=== PATIENT | female | born 1965 | race Caucasian/White ===

== ENCOUNTER 2016-09-03 21:53 | Emergency (ER) | payer MEDICAID ==
[~2016-09-03] VITALS: Ht 160 cm; Wt 108.9 kg
[~2016-09-03 21:53] MED LIST: ALAVERT10 M1 PO; ANAPROX DS550 MG PO; APAP PO; APAP/BUTALBITAL1 TA1 PO; ATENOLOL50 MG PO; B/P PILL PO; BACLOFEN20 MG PO; BACTRIM DS 8001 TAB PO; BENTYL GENERIC10 MG OR; BUTALB PO; BUTALB-ACETAMIN-CAFF OR; CAF PO; CELEBREX 200MG200 MG PO; CELEBREX200 MG PO; CELEXA20 MG PO; CEPHALEXIN500 MG PO; CHLORPROMAZINE25 MG PO; CHLORZOXAZONE500 MG PO; CIPRO 500MG TA500 MG PO; CITALOPRAM20 MG PO; CLARITIN10 MG PO; Cephalexin500 MG PO; DIAZEPAM5 MG PO; FIORICET 325 MG1 TAB PO; FLAGYL 500MG.500 MG PO; FLEXERIL10 MG PO; GABAPENTIN 600600 MG PO; HYDROCHLOROTHIA25 M1 PO; HYDROCODON-ACETAMINO OR; HYDROXYZINE 25M25 MG PO; IBU800 M1 PO; IMITREX 6M6 MG/0.5 M IJ; KEFLEX 500MG.500 MG PO; LORAZEPAM1 MG/TABLE PO; MECLIZINE HYDRO25 MG PO; MEDROL 4MG. DOSE4 MG PO; METOPROLOL50 MG PO; MOBIC15 MG PO; MOTRIN600 MG PO; OMEPRAZOLE20 MG PO; PENICILLIN V P500 MG PO; PHENERGAN 25MG.25 M1 PO; PHENERGAN12.5 M3 PO; TESSALON PERLE100 MG PO; TOPAMAX100 MG PO; TOPAMAX200 MG PO; TRAMADOL 50MG T50 MG PO; ULTRAM 50 MG TA50 MG PO; VENTOLIN H0.09 MG/AC IH; VICODIN 5/500 T1 TAB PO; VOLTAREN75 MG PO; ZANTAC 150150 MG PO; ZANTAC 300300 MG PO; ZITHROMAX Z PA250 MG PO; ZOLPIDEM 10MG T10 MG PO; [UNRECOGNIZED DRUG - OTHER] PO
--- NOTE | 2016-09-03 22:27 | Emergency Room Report ---
History of Present Illness Time Seen by [id number] Presenting Problem in Triage Pt arrived:Walked Presenting Problem:PT STATES SHE HAS SOME SWELLING IN RIGHT LEG. PT STATES SHE JUST NOTICED IT TONIGHT. PT DENIES ANY INJURIES. PT STATES SHE HAS PAIN WHEN WALKING. 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 N Clinical Suspician of Infection? N Mental Status: 1 - Regular (Normal Baseline) Sepsis Risk:Low Sepsis Risk Have you (or family members/close friends) recently traveled outside the [place]? N If Yes, where/when: Have you had exposure to infectious disease within the past month? N TB? Other? Specify: Source patient, RN notes reviewed, old records Exam Limitations no limitations Comment has swelling to rt lower leg which pt noted tonight- no hx od dvt and has no sob Cardiac Chest Pain Chest pain indicative of cardiac No Timing/Duration this evening Severity moderate ALLERGIES Coded Allergies: Sulfa (Sulfonamide Antibiotics) (Mild, 09/03/16) morphine (Mild, 09/03/16) NSAIDS (Non-Steroidal Anti-Inflamma (UNKNOWN 09/03/16) escitalopram (From LEXAPRO) (UNKNOWN 09/03/16) Home Medications Reported Medications ATENOLOL (Atenolol 50MG) 50 MG PO DAILY Omeprazole (Omeprazole 20MG) 20 MG PO DAILY #30 Gabapentin (Gabapentin 600MG) 600 MG PO Q8 #90 Zolpidem Tartrate (Zolpidem 10MG) 10 MG PO QHS #30 ALBUTEROL (Ventolin Hfa) 1 PUFF IH Q6H6 History Medical History General CAD? No Angina: No [place]: No Hypertension? Yes Hyperlipidemia? No CHF? No DVT? No PE? No COPD? No Asthma? Yes Anemia? No GERD? Yes Gastric ulcers? No GI Bleed? No Hernia? No Thyroid Problems? No Hypothyroidism? No CVA? No Seizures? No Diabetes? No End Stage Renal Disease? No UTI? No Stones? No BPH? No GB Disease: Yes Nephritic Syndrome? No Asplenia? No Hepatitis? No Sickle Cell Disease? No Arthritis? No Migraines? No Cataracts? No Glaucoma? No MRSA? No HIV? No TB? No Anxiety? Yes Depression? No Cancer? Yes Site: NECK ([place]) More? 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 Respiratory denies cough, denies shortness of breath, denies wheezing Cardiovascular denies chest pain, denies syncope Gastrointestinal denies abdominal pain, denies diarrhea, denies vomiting Genitourinary denies: dysuria, frequency, hesitancy, hematuria. Musculoskeletal denies back pain, denies joint pain, denies joint swelling, denies neck pain Skin see HPI, denies rash, other Psychiatric/Neurological denies headache, denies seizure Physical Exam Vital Signs Vital Signs Date Time Temp Pulse Resp B/P Pulse O2 O2 Flow FiO2 Ox Delivery Rate 09/03 2207 98.2 97 18 105/73 96 - WBC >12,000 or <4,000 or 10% bands? 2 or more SIRS Criteria Met? B/P:105/73 MAP:83 Creatinine >2.0? UA output<0.5ml/kg/hr for 2 hrs? Platelet count >100,000? Lactate >2.0mmol/1? INR >1.2 or PTT > than 60 sec? Evidence of Organ Dysfunction? Provider documented clinical suspician of infection? N Sepsis Criteria Count: 1 Sepsis Risk: Low Sepsis Risk General Appearance no apparent distress Eye Exam - bilateral eye PERRL, bilateral eye EOMI Ear, Nose, Throat normal ENT inspection Neck supple Respiratory Status No: respiratory distress. 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 No Results/Orders Laboratory Tests 09/03/162224: Sodium 142, Potassium 3.6, Chloride 106, Carbon Dioxide 30, BUN 12, Creatinine 1.0, Estimated Creat Clear 117, Estimated GFR (MDRD) 59, Glucose 102, Calcium 8.4 L, D-Dimer 549 *H, WBC 6.1, RBC 3.72 L, Hgb 11.1 L, Hct 32.7 L, MCV 87.9 , RDW 15.2, Plt Count 235, MPV 8.8, Gran % 60.5, Gran # 3.7, Lymphocytes % 27.8, Monocytes % 5.8, Eosinophils % 4.9, Basophils % 0.9, Lymphocytes # 1.7, Monocytes # 0.4, Eosinophils # 0.3, Basophils # 0.1, PUBS MCHC 34.0, MCH 29.9 Orders Procedure Date/time Status BASIC METABOLIC PROFILE 09/03 2226 Complete D-DIMER 09/03 2214 Complete CBC WITH AUTO DIFF 09/03 2214 Complete Departure Departure Time of Disposition 0001 Disposition DC Home or Self Care(routine) Clinical Impression Primary Impression: Lower leg edema Secondary Impressions: Elevated d-dimer Condition STABLE Referrals Yosef Dorman (Family) Patient Instructions DI for Leg Pain Additional Instructions see dr dorman in am to have venous doppler and follow up Discharge Counseling Counseled pt/family regarding diagnosis, test results, medications/RX, follow up needs ED Critical Care Critical Care No at [phone]
--- NOTE | 2016-09-03 22:27 | Emergency Room Report ---
History of Present Illness Time Seen by [id number] Presenting Problem in Triage Pt arrived:Walked Presenting Problem:PT STATES SHE HAS SOME SWELLING IN RIGHT LEG. PT STATES SHE JUST NOTICED IT TONIGHT. PT DENIES ANY INJURIES. PT STATES SHE HAS PAIN WHEN WALKING. 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 N Clinical Suspician of Infection? N Mental Status: 1 - Regular (Normal Baseline) Sepsis Risk:Low Sepsis Risk Have you (or family members/close friends) recently traveled outside the [place]? N If Yes, where/when: Have you had exposure to infectious disease within the past month? N TB? Other? Specify: Source patient, RN notes reviewed, old records Exam Limitations no limitations Comment has swelling to rt lower leg which pt noted tonight- no hx od dvt and has no sob Cardiac Chest Pain Chest pain indicative of cardiac No Timing/Duration this evening Severity moderate ALLERGIES Coded Allergies: Sulfa (Sulfonamide Antibiotics) (Mild, 09/03/16) morphine (Mild, 09/03/16) NSAIDS (Non-Steroidal Anti-Inflamma (UNKNOWN 09/03/16) escitalopram (From LEXAPRO) (UNKNOWN 09/03/16) Home Medications Reported Medications ATENOLOL (Atenolol 50MG) 50 MG PO DAILY Omeprazole (Omeprazole 20MG) 20 MG PO DAILY #30 Gabapentin (Gabapentin 600MG) 600 MG PO Q8 #90 Zolpidem Tartrate (Zolpidem 10MG) 10 MG PO QHS #30 ALBUTEROL (Ventolin Hfa) 1 PUFF IH Q6H6 History Medical History General CAD? No Angina: No [place]: No Hypertension? Yes Hyperlipidemia? No CHF? No DVT? No PE? No COPD? No Asthma? Yes Anemia? No GERD? Yes Gastric ulcers? No GI Bleed? No Hernia? No Thyroid Problems? No Hypothyroidism? No CVA? No Seizures? No Diabetes? No End Stage Renal Disease? No UTI? No Stones? No BPH? No GB Disease: Yes Nephritic Syndrome? No Asplenia? No Hepatitis? No Sickle Cell Disease? No Arthritis? No Migraines? No Cataracts? No Glaucoma? No MRSA? No HIV? No TB? No Anxiety? Yes Depression? No Cancer? Yes Site: NECK ([place]) More? 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 Respiratory denies cough, denies shortness of breath, denies wheezing Cardiovascular denies chest pain, denies syncope Gastrointestinal denies abdominal pain, denies diarrhea, denies vomiting Genitourinary denies: dysuria, frequency, hesitancy, hematuria. Musculoskeletal denies back pain, denies joint pain, denies joint swelling, denies neck pain Skin see HPI, denies rash, other Psychiatric/Neurological denies headache, denies seizure Physical Exam Vital Signs Vital Signs Date Time Temp Pulse Resp B/P Pulse O2 O2 Flow FiO2 Ox Delivery Rate 09/03 2207 98.2 97 18 105/73 96 - WBC >12,000 or <4,000 or 10% bands? 2 or more SIRS Criteria Met? B/P:105/73 MAP:83 Creatinine >2.0? UA output<0.5ml/kg/hr for 2 hrs? Platelet count >100,000? Lactate >2.0mmol/1? INR >1.2 or PTT > than 60 sec? Evidence of Organ Dysfunction? Provider documented clinical suspician of infection? N Sepsis Criteria Count: 1 Sepsis Risk: Low Sepsis Risk General Appearance no apparent distress Eye Exam - bilateral eye PERRL, bilateral eye EOMI Ear, Nose, Throat normal ENT inspection Neck supple Respiratory Status No: respiratory distress. 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 No Results/Orders Laboratory Tests 09/03/162224: Sodium 142, Potassium 3.6, Chloride 106, Carbon Dioxide 30, BUN 12, Creatinine 1.0, Estimated Creat Clear 117, Estimated GFR (MDRD) 59, Glucose 102, Calcium 8.4 L, D-Dimer 549 *H, WBC 6.1, RBC 3.72 L, Hgb 11.1 L, Hct 32.7 L, MCV 87.9 , RDW 15.2, Plt Count 235, MPV 8.8, Gran % 60.5, Gran # 3.7, Lymphocytes % 27.8, Monocytes % 5.8, Eosinophils % 4.9, Basophils % 0.9, Lymphocytes # 1.7, Monocytes # 0.4, Eosinophils # 0.3, Basophils # 0.1, PUBS MCHC 34.0, MCH 29.9 Orders Procedure Date/time Status BASIC METABOLIC PROFILE 09/03 2226 Complete D-DIMER 09/03 2214 Complete CBC WITH AUTO DIFF 09/03 2214 Complete Departure Departure Time of Disposition 0001 Disposition DC Home or Self Care(routine) Clinical Impression Primary Impression: Lower leg edema Secondary Impressions: Elevated d-dimer Condition STABLE Referrals Yosef Dorman (Family) Patient Instructions DI for Leg Pain Additional Instructions see dr dorman in am to have venous doppler and follow up Discharge Counseling Counseled pt/family regarding diagnosis, test results, medications/RX, follow up needs ED Critical Care Critical Care No at [phone]
[2016-09-03 22:36] LABS: LYMPH # 1.7 K/mm3 (0.7-4.5); LYMPH % 27.8 % (10-50.0)
[2016-09-03 22:39] LABS: HEMOGLOBIN 11.1 g/dL (12.2-16.2)
[2016-09-04 00:16] VITALS: BP 125/73
[2016-09-05] MEDS ORDERED: KEFLEX 500MG.500 MG PO (19:11)
== END 2016-09-04 00:17 | disposition home or self-care (01) ==
LOC: ER 21:53
PROVIDERS: Emergency Medicine
DX: R60.0 Localized edema (principal); I10 Essential (primary) hypertension; Z72.0 Tobacco use; K21.9 Gastro-esophageal reflux disease without esophagitis; F41.9 Anxiety disorder, unspecified; D68.8 Other specified coagulation defects

== ENCOUNTER 2016-12-10 16:41 | Emergency (ER) | payer MEDICAID ==
[~2016-12-10] VITALS: Ht 160 cm; Wt 107.0 kg
--- NOTE | 2016-12-10 17:11 | Urgent Treatment Center Report ---
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 STATES GETTING RELIEF WHEN SHE LAYS ON RIGHT SIDE OR USES HAIRDRYER TO AREA. Location if Accident: Onset of symptoms date/time:/ or onset unknown for:MEDICAL HX UNKNOWN Have you (or family members/close friends) recently traveled outside the [place]? N If Yes, where/when: Have you had exposure to infectious disease within the past month? TB? Other? Specify: Patient state that she has been seeing Dr. Dorman and he told her to come up here and be seen due to pain in her right knee area. States that last year she got an injection in her back and ever since she has been having pain on and off that goes from her mid-thigh area into her knee. state that pain is better when she lays on leg or uses a blow dryer to blow heat on it Source patient ALLERGIES Coded Allergies: Sulfa (Sulfonamide Antibiotics) (Mild, 09/03/16) morphine (Mild, 09/03/16) NSAIDS (Non-Steroidal Anti-Inflamma (UNKNOWN 09/03/16) escitalopram (From LEXAPRO) (UNKNOWN 09/03/16) ibuprofen (From MOTRIN) (12/10/16) Home Medications Reported Medications ATENOLOL (Atenolol 50MG) 50 MG PO DAILY Omeprazole (Omeprazole 20MG) 20 MG PO DAILY #30 Zolpidem Tartrate (Zolpidem 10MG) 10 MG PO QHS #30 ALBUTEROL (Ventolin Hfa) 1 PUFF IH Q6H6 History Medical History General CAD? No Angina: No [place]: No Hypertension? Yes Hyperlipidemia? No CHF? No DVT? No PE? No COPD? No Asthma? Yes Anemia? No GERD? Yes Gastric ulcers? No GI Bleed? No Hernia? No Thyroid Problems? No Hypothyroidism? No CVA? No Seizures? No Diabetes? No UTI? No Stones? No BPH? No GB Disease: Yes Nephritic Syndrome? No Asplenia? No Hepatitis? No Sickle Cell Disease? No Arthritis? No Migraines? No Cataracts? No Glaucoma? No MRSA? No HIV? No TB? No Anxiety? Yes Depression? No Cancer? Yes Site: NECK ([place]) More? 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 Dorman and he told her to come up here and be seen Physical Exam Vital Signs Vital Signs Date Time Temp Pulse Resp B/P Pulse O2 O2 Flow FiO2 Ox Delivery Rate 12/10 1650 97.8 94 20 123/80 94 General Appearance normal appearance, WD/WN, no apparent distress Respiratory Status Yes: trachea midline, chest symmetrical, non tender chest. No: respiratory distress. 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 Has had this before and they treated her with muscle relaxer but it didn't help. Medical Decision Making LABS/Meds/Orders Pt receiving controlled substance in ED? No Results/Orders Orders Procedure Date/time Status KNEE-3 VIEWS-RT 12/10 1704 Active XRAY/CT/US XRAY/CT/US XRAY knee XR interpretation by reviewed by me Xray Results normal/NAD, no fracture seen Departure Departure Time of Disposition 1744 Disposition DC Home or Self Care(routine) Clinical Impression Primary Impression: Knee pain Qualifiers: Laterality: right Chronicity: chronic Qualified Code: M25.561 - Pain in right knee Secondary Impressions: Thigh pain Qualifiers: Laterality: right Qualified Code: M79.651 - Pain in right thigh Condition STABLE Referrals Yosef Dorman (Family) Patient Instructions DI for Knee Pain, DI for Leg Pain Additional Instructions Follow up with family doctor for further treatment Return to the [facility] if needed Rest area DO NOT use blow dryer and blow direct heat on skin, could damage skin and cause further injury Discharge Counseling Counseled pt/family regarding diagnosis, medications/RX, home care, follow up needs Prescriptions Current Visit Scripts Gabapentin (Neurontin) 200 MG PO TID #15 CAP at [phone]
--- NOTE | 2016-12-10 17:11 | Urgent Treatment Center Report ---
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 STATES GETTING RELIEF WHEN SHE LAYS ON RIGHT SIDE OR USES HAIRDRYER TO AREA. Location if Accident: Onset of symptoms date/time:/ or onset unknown for:MEDICAL HX UNKNOWN Have you (or family members/close friends) recently traveled outside the [place]? N If Yes, where/when: Have you had exposure to infectious disease within the past month? TB? Other? Specify: Patient state that she has been seeing Dr. Dorman and he told her to come up here and be seen due to pain in her right knee area. States that last year she got an injection in her back and ever since she has been having pain on and off that goes from her mid-thigh area into her knee. state that pain is better when she lays on leg or uses a blow dryer to blow heat on it Source patient ALLERGIES Coded Allergies: Sulfa (Sulfonamide Antibiotics) (Mild, 09/03/16) morphine (Mild, 09/03/16) NSAIDS (Non-Steroidal Anti-Inflamma (UNKNOWN 09/03/16) escitalopram (From LEXAPRO) (UNKNOWN 09/03/16) ibuprofen (From MOTRIN) (12/10/16) Home Medications Reported Medications ATENOLOL (Atenolol 50MG) 50 MG PO DAILY Omeprazole (Omeprazole 20MG) 20 MG PO DAILY #30 Zolpidem Tartrate (Zolpidem 10MG) 10 MG PO QHS #30 ALBUTEROL (Ventolin Hfa) 1 PUFF IH Q6H6 History Medical History General CAD? No Angina: No [place]: No Hypertension? Yes Hyperlipidemia? No CHF? No DVT? No PE? No COPD? No Asthma? Yes Anemia? No GERD? Yes Gastric ulcers? No GI Bleed? No Hernia? No Thyroid Problems? No Hypothyroidism? No CVA? No Seizures? No Diabetes? No UTI? No Stones? No BPH? No GB Disease: Yes Nephritic Syndrome? No Asplenia? No Hepatitis? No Sickle Cell Disease? No Arthritis? No Migraines? No Cataracts? No Glaucoma? No MRSA? No HIV? No TB? No Anxiety? Yes Depression? No Cancer? Yes Site: NECK ([place]KINS) More? 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 Dorman and he told her to come up here and be seen Physical Exam Vital Signs Vital Signs Date Time Temp Pulse Resp B/P Pulse O2 O2 Flow FiO2 Ox Delivery Rate 12/10 1650 97.8 94 20 123/80 94 General Appearance normal appearance, WD/WN, no apparent distress Respiratory Status Yes: trachea midline, chest symmetrical, non tender chest. No: respiratory distress. 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 Has had this before and they treated her with muscle relaxer but it didn't help. Medical Decision Making LABS/Meds/Orders Pt receiving controlled substance in ED? No Results/Orders Orders Procedure Date/time Status KNEE-3 VIEWS-RT 12/10 1704 Active XRAY/CT/US XRAY/CT/US XRAY knee XR interpretation by reviewed by me Xray Results normal/NAD, no fracture seen Departure Departure Time of Disposition 1744 Disposition DC Home or Self Care(routine) Clinical Impression Primary Impression: Knee pain Qualifiers: Laterality: right Chronicity: chronic Qualified Code: M25.561 - Pain in right knee Secondary Impressions: Thigh pain Qualifiers: Laterality: right Qualified Code: M79.651 - Pain in right thigh Condition STABLE Referrals Yosef Dorman (Family) Patient Instructions DI for Knee Pain, DI for Leg Pain Additional Instructions Follow up with family doctor for further treatment Return to the [facility] if needed Rest area DO NOT use blow dryer and blow direct heat on skin, could damage skin and cause further injury Discharge Counseling Counseled pt/family regarding diagnosis, medications/RX, home care, follow up needs Prescriptions Current Visit Scripts Gabapentin (Neurontin) 200 MG PO TID #15 CAP at [id number]
--- NOTE | 2016-12-10 17:43 | RADIOLOGY REPORT PS360 ---
KNEE-3 VIEWS-RT Ordering Physician: TANMAY MAYO APRN Patient Age: 51 years: Female HISTORY: painright knee pain nonspecified TECHNIQUE: 3 views right knee FINDINGS Right knee is intact with no fracture nor dislocation. . No acute findings are identified no joint effusion. . Only slight sharpening the joint margins. Reflect some early degenerative changes but unimpressive. Borderline narrowing medial lateral compartment IMPRESSION: No fracture nor acute findings right knee. Subtle sharpening the joint margins could reflect some scant early degenerative changes but unimpressive
[2016-12-10] MEDS ORDERED: NEURONTIN 100100 MG PO (17:56)
[2016-12-10 17:59] VITALS: BP 123/80
== END 2016-12-10 18:00 | disposition home or self-care (01) ==
LOC: UTC 16:41
DX: M25.561 Pain in right knee (principal); M79.651 Pain in right thigh; I10 Essential (primary) hypertension; K21.9 Gastro-esophageal reflux disease without esophagitis; Z72.0 Tobacco use

== ENCOUNTER 2017-03-04 00:04 | Emergency (ER) | payer MEDICAID ==
[~2017-03-04] VITALS: Ht 160 cm; Wt 113.9 kg
[~2017-03-04 00:04] MED LIST changes: +NEURONTIN 100100 MG PO
--- NOTE | 2017-03-04 00:36 | Emergency Room Report ---
History of Present Illness Time Seen by [id number] Presenting Problem in Triage Pt arrived:Walked Presenting Problem:C/O HEADACHE AND VOMITING SINCE 1929 TONIGHT. VOMITED X 2. 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 N Clinical Suspician of Infection? N Mental Status: 1 - Regular (Normal Baseline) Sepsis Risk:Possible Sepsis Risk Have you (or family members/close friends) recently traveled outside the [place]? N If Yes, where/when: Have you had exposure to infectious disease within the past month? N TB? Other? Specify: Source patient, RN notes reviewed, old records Exam Limitations no limitations Comment frontal valdes with n/v since this afternoon w/o fever/rash or trauma with no neuro sx Cardiac Chest Pain Chest pain indicative of cardiac No Timing/Duration this evening Severity moderate ALLERGIES Coded Allergies: Sulfa (Sulfonamide Antibiotics) (Mild, 09/03/16) morphine (Mild, 09/03/16) NSAIDS (Non-Steroidal Anti-Inflamma (UNKNOWN 09/03/16) escitalopram (From LEXAPRO) (UNKNOWN 09/03/16) ibuprofen (From MOTRIN) (12/10/16) Home Medications Active Scripts Gabapentin (Neurontin) 200 MG PO TID #15 CAP Prov: 12/10/16 Reported Medications ATENOLOL (Atenolol 50MG) 50 MG PO DAILY Omeprazole (Omeprazole 20MG) 20 MG PO DAILY #30 Zolpidem Tartrate (Zolpidem 10MG) 10 MG PO QHS #30 ALBUTEROL (Ventolin Hfa) 1 PUFF IH Q6H6 History Medical History General CAD? No Angina: No AK: No Hypertension? Yes Hyperlipidemia? No CHF? No DVT? No PE? No COPD? No Asthma? Yes Anemia? No GERD? Yes Gastric ulcers? No GI Bleed? No Hernia? No Thyroid Problems? No Hypothyroidism? No CVA? No Seizures? No Diabetes? No End Stage Renal Disease? No UTI? No Stones? No BPH? No GB Disease: Yes Nephritic Syndrome? No Asplenia? No Hepatitis? No Sickle Cell Disease? No Arthritis? No Migraines? No Cataracts? No Glaucoma? No MRSA? No HIV? No TB? No Anxiety? Yes Depression? No Cancer? Yes Site: NECK ([place]) More? 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 Respiratory denies cough, denies shortness of breath, denies wheezing Cardiovascular denies chest pain, denies palpitations, denies syncope Gastrointestinal see HPI, denies abdominal pain, denies diarrhea, nausea, vomiting Genitourinary denies: dysuria, frequency, hesitancy, hematuria. Musculoskeletal denies back pain, denies joint pain, denies joint swelling, denies neck pain Skin denies rash Psychiatric/Neurological see HPI, headache, denies seizure Physical Exam Vital Signs Vital Signs Date Time Temp Pulse Resp B/P Pulse O2 O2 Flow FiO2 Ox Delivery Rate 03/04 0007 98.6 103 20 122/73 94 - WBC >12,000 or <4,000 or 10% bands? 2 or more SIRS Criteria Met? B/P:122/73 MAP:89 Creatinine >2.0? UA output<0.5ml/kg/hr for 2 hrs? Platelet count >100,000? Lactate >2.0mmol/1? INR >1.2 or PTT > than 60 sec? Evidence of Organ Dysfunction? Provider documented clinical suspician of infection? N Sepsis Criteria Count: 2 Sepsis Risk: Possible Sepsis Risk General Appearance no apparent distress Eye Exam - bilateral eye PERRL, bilateral eye EOMI Ear, Nose, Throat normal ENT inspection Neck supple Respiratory Status No: respiratory distress. 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 No Results/Orders Laboratory Tests 03/04/17 0030: Amylase 27, Lipase 153 03/04/17 0030: Sodium 136, Potassium 3.5, Chloride 102, Carbon Dioxide 29, BUN 12, Creatinine 1.2 H, Estimated Creat Clear 101, Estimated GFR (MDRD) 48 L, Glucose 148 H, Calcium 9.4, Total Bilirubin 0.4, AST 16, ALT 23, Alkaline Phosphatase 81, Total Protein 8.0, Albumin 3.5, Globulin 4.5 H, Albumin/Globulin Ratio 0.8 L, WBC 7.4, RBC 4.91, Hgb 13.9, Hct 42.0, MCV 85.5, RDW 14.1, Plt Count 303, MPV 8.0, Gran % 63.5, Gran # 4.7, Lymphocytes % 26.1, Monocytes % 5.0, Eosinophils % 4.4, Basophils % 1.0, Lymphocytes # 1.9, Monocytes # 0.4, Eosinophils # 0.3, Basophils # 0.1, PUBS MCHC 33.2, MCH 28.4 Orders Procedure Date/time Status URINALYSIS/COMPLETE 03/04 27 Active LIPASE 03/04 27 Complete CBC WITH AUTO DIFF 03/04 27 Complete CHEM 12 PROFILE 03/04 27 Complete AMYLASE 03/04 27 Complete Departure Departure Time of Disposition 0059 Disposition DC Home or Self Care(routine) Clinical Impression Primary Impression: Headache Qualifiers: Headache type: unspecified Headache chronicity pattern: acute headache Intractability: not intractable Qualified Code: R51 - Headache Condition STABLE Referrals [facility] (Family) Patient Instructions DI for Vomiting -- Adult Additional Instructions fluids and see pcp for follow up Discharge Counseling Counseled pt/family regarding diagnosis, test results, follow up needs ED [place] [address]
--- OUTSIDE RECORDS SUMMARY | 2017-03-04 00:41 | External Medical Summary Rpt ---
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 LO 37 -1 -[address] ti DI 85 4- 7- 00 00 SI ve PI 20 20 20 46 DE NE 90 17 17 88 5 53 PH BE AR SY MA LA CY TE 5 OF CY MG NT HI TA AN B A IN C CH 00 02 03 60 15 00 EA Ac LO 59 -1 -[address] ti RZ 12 4- 7- 00 00 SI ve OX 52 20 20 47 DE AZ 00 17 17 61 ON 1 13 PH E AR 50 MA 0 CY MG OF TA CY BL NT ET HI AN A IN C HY 00 02 03 [address] 40 -0 -[address] ti OC 60 8- 0- 00 00 SI ve OD 12 20 20 47 DE ON 40 17 17 53 -A 5 92 PH CE AR TA MA PR CY NO PH OF CY 7. NT 5- HI 32 AN 5 A IN C CE 00 02 03 20 10 00 EA Ac FD 09 -0 -[address] ti IN 33 7- 0- 00 00 SI ve IR 16 20 20 47 DE 00 17 17 53 30 6 14 PH 0 AR MG MA CY CA PS OF UL CY E NT HI AN A IN C BU 00 02 03 60 30 00 EA Ac SP 37 -0 -[address] ti IR 81 1- 3- 00 00 SI ve ON 15 20 20 46 DE E 00 17 17 15 HC 5 80 PH L AR 10 MA CY MG OF TA CY BL NT ET HI AN A IN C OM 62 02 03 30 30 00 EA Ac EP 17 -0 -[address] ti RA 50 1- 3- 00 00 SI ve ZO 13 20 20 47 DE LE 64 17 [address] AR MA 40 CY MG OF CY CA NT PS HI UL AN E A IN C OR 65 01 03 30 8 00 EA Ac OM 16 -3 -[address] ti ET 20 1- 3- 00 00 SI ve PARKER 52 20 20 47 DE ZI 11 17 17 25 NE 1 99 PH AR 25 MA CY MG OF TA CY BL NT ET HI AN A IN C TR 50 02 03 60 30 00 EA Ac AZ 11 -0 -[address] ti OD 10 1- 3- 00 00 SI ve ON 43 20 20 47 DE E 30 17 17 01 50 2 38 PH AR MG MA CY TA BL OF ET CY NT HI AN A IN C HY 00 01 02 [address] 40 -2 -[address] ti OC 60 4- 4- 00 00 SI ve OD 12 20 20 47 DE ON 40 17 17 35 -A 5 90 PH CE AR TA MA PR CY NO PH OF CY 7. NT 5- HI 32 AN 5 A IN C AM 00 01 02 30 30 00 EA Ac LO 37 -1 -[address] ti DI 85 3- 7- 00 00 SI ve PI 20 20 20 46 DE NE 90 17 17 88 5 53 PH BE AR SY MA LA CY TE 5 OF CY MG NT HI TA AN B A IN C CY 00 01 02 90 30 00 EA Ac CL 37 -1 -[address] ti OB 80 3- 7- 00 00 SI ve EN 75 20 20 46 DE ZA 11 17 17 79 OR 0 73 PH IN AR E MA 10 CY MG OF CY TA NT BL HI ET AN A IN C OR 65 01 02 30 8 00 EA Ac OM 16 -1 -[address] ti ET 20 6- 7- 00 00 SI ve PARKER 52 20 20 47 DE ZI 11 17 17 25 NE 1 99 PH AR 25 MA CY MG OF TA CY BL NT ET HI AN A IN C DI 00 01 02 60 20 00 EA Ac CL 22 -1 -[address] ti OF 82 8- 7- 00 00 SI ve EN 55 20 20 47 DE AC 09 17 17 02 6 72 PH SO AR D MA EC CY 50 OF CY MG NT HI TA AN B A IN C CE 65 01 02 40 10 00 EA Ac PH 86 -0 -[address] ti AL 20 5- 0- 00 00 SI ve EX 01 20 20 47 DE IN 90 17 17 14 5 47 PH 50 AR 0 MA MG CY CA OF PS CY UL NT E HI AN A IN C OR 65 01 02 30 8 00 EA Ac OM 16 -0 -[address] ti ET 20 7- 0- 00 00 SI ve PARKER 52 20 20 47 DE ZI 11 17 17 02 NE 1 71 PH AR 25 MA CY MG OF TA CY BL NT ET HI AN A IN C BU 00 12 02 60 30 00 EA Ac SP 37 -3 -[address] ti IR 81 1- 3- 00 00 SI ve ON 15 20 20 46 DE E 00 16 17 15 HC 5 80 PH L AR 10 MA CY MG OF TA CY BL NT ET HI AN A IN C OM 62 01 02 30 30 00 EA Ac EP 17 -0 -[address] ti RA 50 2- 3- 00 00 SI ve ZO 13 20 20 46 DE LE 64 17 17 [address] AR MA 40 CY MG OF CY CA NT PS HI UL AN E A IN C AM 16 12 02 30 10 00 EA Ac OX 71 -3 -[address] ti IC 40 1- 3- 00 00 SI ve IL 29 20 20 46 DE LI 90 16 17 96 N 4 26 PH 50 AR 0 MA MG CY CA OF PS CY UL NT E HI AN A IN C GA 16 12 01 90 30 00 EA Ac BA 71 -2 -[address] ti PE 40 6- 7- 00 00 SI ve NT 33 20 20 47 DE IN 20 16 17 01 2 39 PH 80 AR 0 MA MG CY TA OF BL CY ET NT HI AN A IN C TR 50 12 01 60 30 00 EA Ac AZ 11 -2 -[address] ti OD 10 6- 7- 00 00 SI ve ON 43 20 20 47 DE E 30 16 17 01 50 2 38 PH AR MG MA CY TA BL OF ET CY NT HI AN A IN C OR 65 12 01 30 8 00 EA Ac OM 16 -2 -[address] ti ET 20 7- 7- 00 00 SI ve PARKER 52 20 20 47 DE ZI 11 16 17 02 NE 1 71 PH AR 25 MA CY MG OF TA CY BL NT ET HI AN A IN C DI 00 12 01 60 20 00 EA Ac CL 22 -2 -[address] ti OF 82 7- 7- 00 00 SI ve EN 55 20 20 47 DE AC 09 16 17 02 6 72 PH SO AR D MA EC CY 50 OF CY MG NT HI TA AN B A IN C AM 16 12 01 30 10 00 EA Ac OX 71 -2 -[address] ti IC 40 0- 0- 00 00 SI ve IL 29 20 20 46 DE LI 90 16 17 96 N 4 26 PH 50 AR 0 MA MG CY CA OF PS CY UL NT E HI AN A IN C OR 00 12 01 18 6 00 EA Ac OM 60 -2 -[address] ti ET 31 0- 0- 00 00 SI ve PARKER 58 20 20 0 46 DE ZI 65 16 17 96 NE 8 27 PH -D AR M MA SY CY RU P OF CY NT HI AN A IN C VE 00 12 01 18 25 00 EA Ac NT 17 -2 -[address] ti OL 30 0- 0- 00 00 SI ve IN 68 20 20 46 DE 22 16 17 96 HF 0 28 PH A AR 90 MA CY MC G OF IN CY PARKER NT LE HI R AN A IN C OR 65 12 01 30 8 00 EA Ac OM 16 -1 -[address] ti ET 20 0- 3- 00 00 SI ve PARKER 52 20 20 46 DE ZI 11 16 17 84 NE 1 04 PH AR 25 MA CY MG OF TA CY BL NT ET HI AN A IN C PEREZ 63 12 01 9. 9 00 EA Ac MA 30 -1 -[address] ti TR 40 2- 3- 0 00 SI ve IP 09 20 20 46 DE TA 91 16 17 86 N 9 17 PH PEREZ AR CC MA CY 10 0 OF MG CY NT TA HI BL AN ET A IN C LO 00 12 01 30 4 00 EA Ac PE 09 -1 -[address] ti RA 30 3- 3- 00 00 SI ve PR 31 20 20 46 DE DE 10 16 17 87 2 1 86 PH AR MG MA CY CA PS OF UL CY E NT HI AN A IN C AM 00 12 01 30 30 00 EA Ac LO 37 -1 -[address] ti DI 85 4- 3- 00 00 SI ve PI 20 20 20 46 DE NE 90 16 17 88 5 53 PH BE AR SY MA LA CY TE 5 OF CY MG NT HI TA AN B A IN C OM 68 12 01 30 30 00 EA Ac EP 46 -0 -[address] ti RA 20 5- 9- 00 00 SI ve ZO 23 20 20 46 DE LE 21 16 17 [address] AR MA 40 CY MG OF CY CA NT PS HI UL AN E A IN C CY 00 12 01 90 30 00 EA Ac CL 37 -0 -[address] ti OB 80 7- 9- 00 00 SI ve EN 75 20 20 46 DE ZA 11 16 17 79 OR 0 73 PH IN AR E MA 10 CY MG OF CY TA NT BL HI ET AN A IN C HY 00 05 09 5 [address] 17 -0 -[address] 39 EP ti OC 22 4- 0- 00 SI 51 HE ve HL 08 20 20 DE NS OR 38 11 11 OT 0 PH DO HI AR N AZ MA R ID CY E 25 OF MG CY NT TA HI B AN A ME 00 05 09 5 [address] Ac TO 09 -0 -[address] 39 EP ti OR 30 4- 0- 00 SI 53 HE ve OL 73 20 20 DE NS OL 31 11 11 0 PH DO TA AR N RT MA R RA CY TE OF 50 CY MG NT HI TA AN B A 59 05 09 5 [address] Ac 76 -0 -[address] 39 EP ti 24 4- 0- 00 SI 54 HE ve 80 20 20 DE NS 20 11 11 5 PH DO AR N MA R CY OF CY NT HI AN A RA 53 06 09 4 [address] Ac NI 74 -0 -[address] 76 EP ti TI 60 1- 0- 00 SI 18 HE ve DI 25 20 20 DE NS NE 31 11 11 0 PH DO 15 AR N 0 MA R MG CY TA OF BL ET CY NT HI AN A CY 00 09 09 0 [address] Ac CL 37 -3 -[address] 32 EP ti OB 80 0- 0- 00 SI 59 HE ve EN 75 20 20 DE NS ZA 11 11 11 OR 0 PH DO IN AR N E MA R 10 CY MG OF TA CY BL NT ET HI AN A TO 31 09 09 2 [address] Ac PI 72 -3 -[address] 32 EP ti RA 20 0- 0- 00 SI 60 HE ve MA 28 20 20 DE NS TE 00 11 11 5 PH DO 10 AR N 0 MA R MG CY TA OF BL ET CY NT HI AN A HY 00 05 08 5 [address] 17 -0 -[address] 39 EP ti OC 22 4- 1- 00 SI 51 HE ve HL 08 20 20 DE NS OR 38 11 11 OT 0 PH DO HI AR N AZ MA R ID CY E 25 OF MG CY NT TA HI B AN A ME 00 05 08 5 [address] Ac TO 09 -0 -[address] 39 EP ti OR 30 4- 1- 00 SI 53 HE ve OL 73 20 20 DE NS OL 31 11 11 0 PH DO TA AR N RT MA R RA CY TE OF 50 CY MG NT HI TA AN B A 59 05 08 5 [address] Ac 76 -0 -[address] 39 EP ti 24 4- 1- 00 SI 54 HE ve 80 20 20 DE NS 20 11 11 5 PH DO AR N MA R CY OF CY NT HI AN A RA 53 06 08 4 [address] Ac NI 74 -0 -[address] 76 EP ti TI 60 1- 1- 00 SI 18 HE ve DI 25 20 20 DE NS NE 31 11 11 0 PH DO 15 AR N 0 MA R MG CY TA OF BL ET CY NT HI AN A TO 31 08 08 0 [address] Ac PI 72 -3 -[address] 89 EP ti RA 20 0- 0- 00 SI 00 HE ve MA 28 20 20 DE NS TE 00 11 11 5 PH DO 10 AR N 0 MA R MG CY TA OF BL ET CY NT HI AN A SM 49 08 08 0 [address] Ac 34 -3 -[address] 89 EP ti AL 80 0- 0- 00 SI 16 HE ve LE 04 20 20 DE NS RG 40 11 11 Y 4 PH DO RE AR N LI MA R EF CY 25 OF MG CY NT CA HI P AN A BU 00 08 08 1 [address] Ac TA 60 -1 -[address] 73 EP ti LB 32 9- 9- 00 SI 84 HE ve -A 54 20 20 DE NS CE 42 11 11 TA 8 PH DO PR AR N N- MA R CA CY FF OF 50 -3 CY 25 NT -4 HI 0 AN A 59 07 08 4 8. [address] Ac 31 -2 -[address] 41 EP ti 00 5- 8- 0 SI 30 HE ve 57 20 20 DE NS 92 11 11 0 PH DO AR N MA R CY OF CY NT HI AN A TO 31 03 08 5 [address] Ac PI 72 -2 -[address] 88 EP ti RA 20 8- 1- 00 SI 40 HE ve MA 27 20 20 DE NS TE 90 11 11 5 PH DO 50 AR N MA R MG CY TA OF BL ET CY NT HI AN A HY 00 05 08 5 [address] 17 -0 -[address] 39 EP ti OC 22 4- 1- 00 SI 51 HE ve HL 08 20 20 DE NS OR 38 11 11 OT 0 PH DO HI AR N AZ MA R ID CY E 25 OF MG CY NT TA HI B AN A ME 00 05 08 5 [address] Ac TO 09 -0 -[address] 39 EP ti OR 30 4- 1- 00 SI 53 HE ve OL 73 20 20 DE NS OL 31 11 11 0 PH DO TA AR N RT MA R RA CY TE OF 50 CY MG NT HI TA AN B A 59 05 08 5 [address] Ac 76 -0 -[address] 39 EP ti 24 4- 1- 00 SI 54 HE ve 80 20 20 DE NS 20 11 11 5 PH DO AR N MA R CY OF CY NT HI AN A RA 53 06 08 4 [address] Ac NI 74 -0 -[address] 76 EP ti TI 60 1- 1- 00 SI 18 HE ve DI 25 20 20 DE NS NE 31 11 11 0 PH DO 15 AR N 0 MA R MG CY TA OF BL ET CY NT HI AN A CY 00 07 08 1 [address] Ac CL 37 -1 -[address] 26 EP ti OB 80 2- 1- 00 SI 28 HE ve EN 75 20 20 DE NS ZA 11 11 11 OR 0 PH DO IN AR N E MA R 10 CY MG OF TA CY BL NT ET HI AN A 59 07 07 4 8. [address] Ac 31 -2 -[address] 41 EP ti 00 5- 5- 0 SI 30 HE ve 57 20 20 DE NS 92 11 11 0 PH DO AR N MA R CY OF CY NT HI AN A EP 49 07 07 3 1[address] Ac IP 50 -1 -[address] 26 EP ti EN 20 2- 2- 0 SI 27 HE ve 50 20 20 DE NS 0. 00 11 11 3 1 PH DO MG AR N MA R AU CY TO -I OF NJ EC CY TO NT R HI AN A CY 00 07 07 1 [address] Ac CL 37 -1 -[address] 26 EP ti OB 80 2- 2- 00 SI 28 HE ve EN 75 20 20 DE NS ZA 11 11 11 OR 0 PH DO IN AR N E MA R 10 CY MG OF TA CY BL NT ET HI AN A OR 00 07 07 0 12 3 EA 23 WE Ac OM 78 -0 -[address] 24 HR ti ET 11 7- 1- 00 SI 79 MA ve PARKER 83 20 20 DE N ZI 01 11 11 II NE 0 PH I AR WI 25 MA LL CY IA MG M OF E TA BL CY ET NT HI AN A OR 00 07 07 0 12 3 EA 23 SO Ac OM 78 -0 -[address] 16 KA ti ET 11 2- 2- 00 SI 68 N ve PARKER 83 20 20 DE BA ZI 01 11 11 BA NE 0 PH TU AR ND 25 MA E CY O MG OF TA BL CY ET NT HI AN A TO 13 03 07 5 [address] Ac PI 66 -2 -[address] 88 EP ti RA 80 8- 1- 00 SI 40 HE ve MA 03 20 20 DE NS TE 26 11 11 0 PH DO 50 AR N MA R MG CY TA OF BL ET CY NT HI AN A HY 00 05 07 5 [address] 17 -0 -[address] 39 EP ti OC 22 4- 1- 00 SI 51 HE ve HL 08 20 20 DE NS OR 38 11 11 OT 0 PH DO HI AR N AZ MA R ID CY E 25 OF MG CY NT TA HI B AN A ME 00 05 07 5 [address] Ac TO 09 -0 -[address] 39 EP ti OR 30 4 SI 53 HE ve OL 73 20 20 DE NS OL 31 11 11 0 PH DO TA AR N RT MA R RA CY TE OF 50 CY MG NT HI TA AN B A 59 05 07 5 [address] Ac 76 -0 -[address] 39 EP ti 24 4 SI 54 HE ve 80 20 20 DE NS 20 11 11 5 PH DO AR N MA R CY OF CY NT HI AN A RA 53 06 07 4 [address] Ac NI 74 -0 -[address] 76 EP ti TI 60 1 SI 18 HE ve DI 25 20 20 DE NS NE 31 11 11 0 PH DO 15 AR N 0 MA R MG CY TA OF BL ET CY NT HI AN A OR 00 06 06 1 [address] Ac OM 78 -0 -[address] 80 EP ti ET 11 SI 89 HE ve PARKER 83 20 20 DE NS ZI 01 11 11 NE 0 PH DO AR N 25 MA R CY MG OF TA BL CY ET NT HI AN A OR 00 06 06 1 [address] Ac OM 78 -0 -[address] 80 EP ti ET 11 SI 89 HE ve PARKER 83 20 20 DE NS ZI 01 11 11 NE 0 PH DO AR N 25 MA R CY MG OF TA BL CY ET NT HI AN A DI 00 06 06 0 [address] Ac PH 37 -0 -[address] 80 EP ti EN 80 4 SI 90 HE ve OX 41 20 20 DE NS YL 50 11 11 AT 1 PH DO E- AR N AT MA R RO CY P 2. OF 5- 0. CY 02 NT 5 HI AN A TO 13 03 06 5 [address] Ac PI 66 -2 -[address] 88 EP ti RA 80 8 00 SI 40 HE ve MA 03 20 20 DE NS TE 26 11 11 0 PH DO 50 AR N MA R MG CY TA OF BL ET CY NT HI AN A HY 00 05 06 5 [address] 17 -0 -[address] 39 EP ti OC 22 4- 1- 00 SI 51 HE ve HL 08 20 20 DE NS OR 38 11 11 OT 0 PH DO HI AR N AZ MA R ID CY E 25 OF MG CY NT TA HI B AN A ME 00 05 06 5 [address] Ac TO 09 -0 -[address] 39 EP ti OR 30 4- 00 SI 53 HE ve OL 73 20 20 DE NS OL 31 11 11 0 PH DO TA AR N RT MA R RA CY TE OF 50 CY MG NT HI TA AN B A RA 53 06 06 4 [address] Ac NI 74 -0 -[address] 76 EP ti TI 60 1- SI 18 HE ve DI 25 20 20 DE NS NE 31 11 11 0 PH DO 15 AR N 0 MA R MG CY TA OF BL ET CY NT HI AN A HY 00 05 05 5 [address] 17 -0 -[address] 39 EP ti OC 22 4 4 SI 51 HE ve HL 08 20 20 DE NS OR 38 11 11 OT 0 PH DO HI AR N AZ MA R ID CY E 25 OF MG CY NT TA HI B AN A ME 00 05 05 5 [address] Ac TO 09 -0 -[address] 39 EP ti OR 30 4 SI 53 HE ve OL 73 20 20 DE NS OL 31 11 11 0 PH DO TA AR N RT MA R RA CY TE OF 50 CY MG NT HI TA AN B A 59 05 05 5 [address] Ac 76 -0 -[address] 39 EP ti 24 4 SI 54 HE ve 80 20 20 DE NS 20 11 11 5 PH DO AR N MA R CY OF CY NT HI AN A 59 02 05 2 [address] Ac 76 -2 -[address] 42 EP ti 24 5- SI 08 HE ve 80 20 20 DE NS 20 11 11 5 PH DO AR N MA R CY OF CY NT HI AN A RA 53 02 05 2 [address] Ac NI 74 -2 -[address] 42 EP ti TI 60 5- SI 09 HE ve DI 25 20 20 DE NS NE 31 11 11 0 PH DO 15 AR N 0 MA R MG CY TA OF BL ET CY NT HI AN A TO 13 03 05 5 [address] Ac PI 66 -2 -[address] 88 EP ti RA 80 8- 1- 00 SI 40 HE ve MA 03 20 20 DE NS TE 26 11 11 0 PH DO 50 AR N MA R MG CY TA OF BL ET CY NT HI AN A CE 00 04 04 0 [address] Ac PH 09 -1 -[address] 18 EP ti AL 33 9- 9- 00 SI 44 HE ve EX 14 20 20 DE NS IN 70 11 11 5 PH DO 50 AR N 0 MA R MG CY CA OF PS UL CY E NT HI AN A BU 00 04 04 0 [address] Ac TA 60 -1 -[address] 16 EP ti LB 32 8- 8- 00 SI 95 HE ve -A 54 20 20 DE NS CE 42 11 11 TA 8 PH DO PR AR N N- MA R CA CY FF OF 50 -3 CY 25 NT -4 HI 0 AN A PEREZ 53 04 04 0 [address] Ac LF 74 -1 -[address] 09 EP ti AM 60 3- 3- 00 SI 56 HE ve ET 27 20 20 DE NS HO 20 11 11 XA 5 PH DO ZO AR N LE MA R -T CY MP OF DS CY TA NT BL HI ET AN A ME 00 04 04 0 [address] Ac TH 78 -0 -[address] 00 EP ti YL 15 6- 6- 00 SI 60 HE ve OR 02 20 20 DE NS ED 20 11 11 NI 7 PH DO SO AR N LO MA R NE CY 4 OF MG CY DO NT SE HI PK AN A BU 00 03 04 2 [address] Ac TA 60 -0 -[address] 59 EP ti LB 32 8- 4- 00 SI 53 HE ve -A 54 20 20 DE NS CE 42 11 11 TA 8 PH DO PR AR N N- MA R CA CY FF OF 50 -3 CY 25 NT -4 HI 0 AN A HY 00 04 04 2 [address] 17 -0 -[address] 97 EP ti OC 22 4- 4- 00 SI 49 HE ve HL 08 20 20 DE NS OR 38 11 11 OT 0 PH DO HI AR N AZ MA R ID CY E 25 OF MG CY NT TA HI B AN A ME 00 11 03 4 [address] Ac TO 09 -2 -[address] 13 EP ti OR 30 4- 8- 00 SI 63 HE ve OL 73 20 20 DE NS OL 31 10 11 0 PH DO TA AR N RT MA R RA CY TE OF 50 CY MG NT HI TA AN B A 59 02 03 2 [address] Ac 76 -2 -[address] 42 EP ti 24 5- 8- 00 SI 08 HE ve 80 20 20 DE NS 20 11 11 5 PH DO AR N MA R CY OF CY NT HI AN A RA 00 02 03 2 [address] Ac NI 78 -2 -[address] 42 EP ti TI 11 5- 8- 00 SI 09 HE ve DI 88 20 20 DE NS NE 31 11 11 0 PH DO 15 AR N 0 MA R MG CY TA OF BL ET CY NT HI AN A TO 13 03 03 5 [address] Ac PI 66 -2 -[address] 88 EP ti RA 80 8- 8- 00 SI 40 HE ve MA 03 20 20 DE NS TE 26 11 11 0 PH DO 50 AR N MA R MG CY TA OF BL ET CY NT HI AN A 00 03 03 0 [address] Ac 78 -2 -[address] 80 EP ti 15 2- 2- 00 SI 64 HE ve 25 20 20 DE NS 73 11 11 1 PH DO AR N MA R CY OF CY NT HI AN A HY 00 10 03 4 30 30 EA [address] 55 -2 -[address] 70 ON ti OX 50 6- 1- 00 SI 07 NE ve YZ 32 20 20 DE LL IN 30 10 11 E 4 PH PATTI PA AR HN M MA 25 CY MG OF CA CY P NT HI AN A BU 00 03 03 2 [address] Ac TA 60 -0 -[address] 59 EP ti LB 32 8- 1- 00 SI 53 HE ve -A 54 20 20 DE NS CE 42 11 11 TA 8 PH DO PR AR N N- MA R CA CY FF OF 50 -3 CY 25 NT -4 HI 0 AN A TO 13 03 03 3 [address] Ac PI 66 -0 -[address] 59 EP ti RA 80 8- 8- 00 SI 52 HE ve MA 03 20 20 DE NS TE 16 11 11 0 PH DO 25 AR N MA R MG CY TA OF BL ET CY NT HI AN A BU 00 03 03 2 [address] Ac TA 60 -0 -[address] 59 EP ti LB 32 8- 8- 00 SI 53 HE ve -A 54 20 20 DE NS CE 42 11 11 TA 8 PH DO PR AR N N- MA R CA CY FF OF 50 -3 CY 25 NT -4 HI 0 AN A ME 00 11 03 4 [address] Ac TO 09 -2 -[address] 13 EP ti OR 30 4- 1- 00 SI 63 HE ve OL 73 20 20 DE NS OL 31 10 11 0 PH DO TA AR N RT MA R RA CY TE OF 50 CY MG NT HI TA AN B A HY 00 03 03 0 [address] 17 -0 -[address] 47 EP ti OC 22 1- 1 00 SI 85 HE ve HL 08 20 20 DE NS OR 38 11 11 OT 0 PH DO HI AR N AZ MA R ID CY E 25 OF MG CY NT TA HI B AN A CE 00 02 02 0 [address] Ac PH 09 -2 -[address] 42 EP ti AL 33 6- 6 SI 41 HE ve EX 14 20 20 DE NS IN 70 11 11 5 PH DO 50 AR N 0 MA R MG CY CA OF PS UL CY E NT HI AN A 59 02 02 2 [address] Ac 76 -2 -[address] 42 EP ti 24 5- SI 08 HE ve 80 20 20 DE NS 20 11 11 5 PH DO AR N MA R CY OF CY NT HI AN A RA 00 02 02 2 [address] Ac NI 78 -2 -[address] 42 EP ti TI 11 5 SI 09 HE ve DI 88 20 20 DE NS NE 31 11 11 0 PH DO 15 AR N 0 MA R MG CY TA OF BL ET CY NT HI AN A HY 00 10 02 4 30 30 EA [address] 55 -2 -[address] 70 ON ti OX 50 6- 1 SI 07 NE ve YZ 32 20 20 DE LL IN 30 10 11 E 4 PH PATTI PA AR HN M MA 25 CY MG OF CA CY P NT HI AN A ME 50 02 02 0 42 14 EA 21 GA Ac TR 11 -0 -[address] 14 IN ti ON 10 SI 31 EY ve ID 33 20 20 DE AZ 40 11 11 PR OL 1 PH CH E AR AE 50 MA L 0 CY S MG OF TA BL CY ET NT HI AN A OR 00 02 02 0 [address] Ac OM 78 -0 -[address] 05 EP ti ET 11 2- 2- 00 SI 65 HE ve PARKER 83 20 20 DE NS ZI 01 11 11 NE 0 PH DO AR N 25 MA R CY MG OF TA BL CY ET NT HI AN A HY 00 10 01 4 30 30 EA [address] 55 -2 -[address] 70 ON ti OX 50 6- 5- 00 SI 07 NE ve YZ 32 20 20 DE LL IN 30 10 11 E 4 PH PATTI PA AR HN M MA 25 CY MG OF CA CY P NT HI AN A HY 00 11 01 2 [address] 17 -2 -[address] 12 EP ti OC 22 3- 5- 00 SI 19 HE ve HL 08 20 20 DE NS OR 38 10 11 OT 0 PH DO HI AR N AZ MA R ID CY E 25 OF MG CY NT TA HI B AN A ME 00 11 01 4 [address] Ac TO 09 -2 -[address] 13 EP ti OR 30 4- 5- 00 SI 63 HE ve OL 73 20 20 DE NS OL 31 10 11 0 PH DO TA AR N RT MA R RA CY TE OF 50 CY MG NT HI TA AN B A 59 12 01 2 [address] Ac 76 -2 -[address] 55 EP ti 24 7- 5- 00 SI 50 HE ve 80 20 20 DE NS 20 10 11 5 PH DO AR N MA R CY OF CY NT HI AN A RA 53 01 01 0 [address] Ac NI 74 -2 -[address] 95 EP ti TI 60 5- 5- 00 SI 55 HE ve DI 25 20 20 DE NS NE 30 11 11 5 PH DO 15 AR N 0 MA R MG CY TA OF BL ET CY NT HI AN A TO 13 10 01 4 90 30 EA 19 OC Ac PI 66 -2 -[address] 70 ON ti RA 80 6- 3- 00 SI 09 NE ve MA 03 20 20 DE LL TE 26 10 11 0 PH PATTI 50 AR HN MA MG CY TA OF BL ET CY NT HI AN A 00 01 01 1 [address] Ac 55 -0 -[address] 64 EP ti 50 3- 3- 00 SI 68 HE ve 58 20 20 DE NS 50 11 11 2 PH DO AR N MA R CY OF CY NT HI AN A HY 00 10 12 4 30 30 EA [address] 55 -2 -[address] 70 ON ti OX 50 6- 7- 00 SI 07 NE ve YZ 32 20 20 DE LL IN 30 10 10 E 4 PH PATTI PA AR HN M MA 25 CY MG OF CA CY P NT HI AN A 59 12 12 2 [address] Ac 76 -2 -[address] 55 EP ti 24 7- 7- 00 SI 50 HE ve 80 20 20 DE NS 20 10 10 5 PH DO AR N MA R CY OF CY NT HI AN A HY 00 11 12 2 [address] 17 -2 -[address] 12 EP ti OC 22 3- 4- 00 SI 19 HE ve HL 08 20 20 DE NS OR 38 10 10 OT 0 PH DO HI AR N AZ MA R ID CY E 25 OF MG CY NT TA HI B AN A ME 00 11 12 4 [address] Ac TO 09 -2 -[address] 13 EP ti OR 30 4- 4- 00 SI 63 HE ve OL 73 20 20 DE NS OL 31 10 10 0 PH DO TA AR N RT MA R RA CY TE OF 50 CY MG NT HI TA AN B A RA 53 12 12 0 [address] Ac NI 74 -2 -[address] 54 EP ti TI 60 4- 4- 00 SI 21 HE ve DI 25 20 20 DE NS NE 30 10 10 5 PH DO 15 AR N 0 MA R MG CY TA OF BL ET CY NT HI AN A AM 00 12 12 0 [address] Ac OX 78 -1 -[address] 39 EP ti IC 12 4- 4- 00 SI 70 HE ve IL 61 20 20 DE NS LI 30 10 10 N 5 PH DO 50 AR N 0 MA R MG CY CA OF PS UL CY E NT HI AN A 60 12 12 0 [address] Ac 25 -1 -[address] 39 EP ti 80 4- 4- 00 SI 71 HE ve 23 20 20 0 DE NS 91 10 10 6 PH DO AR N MA R CY OF CY NT HI AN A ME 00 12 12 0 [address] Ac TH 78 -1 -[address] 39 EP ti YL 15 4- 4- 00 SI 73 HE ve OR 02 20 20 DE NS ED 20 10 10 NI 7 PH DO SO AR N LO MA R NE CY 4 OF MG CY DO NT SE HI PK AN A CH 50 12 12 0 [address] Ac LO 38 -0 -[address] 27 EP ti RH 30 6- 6- 00 SI 19 HE ve EX 72 20 20 0 DE NS ID 01 10 10 IN 6 PH KE E AR 0. MA N 12 CY C % RI OF NS E CY NT HI AN A TO 13 10 12 4 90 30 EA 19 OC Ac PI 66 -2 -[address] 70 ON ti RA 80 6- 3- 00 SI 09 NE ve MA 03 20 20 DE LL TE 26 10 10 0 PH PATTI 50 AR HN MA MG CY TA OF BL ET CY NT HI AN A OR 00 12 12 0 [address] Ac OC 09 -0 -[address] 25 EP ti HL 39 3- 3- 00 SI 23 HE ve OR 65 20 20 DE NS PE 20 10 10 RA 1 PH DO ZI AR N NE MA R CY 10 OF MG CY TA NT B HI AN A RA 53 08 11 3 [address] Ac NI 74 -2 -[address] 84 EP ti TI 60 5- 4- 00 SI 80 HE ve DI 25 20 20 DE NS NE 30 10 10 5 PH DO 15 AR N 0 MA R MG CY TA OF BL ET CY NT HI AN A HY 00 10 11 4 30 30 EA [address] 55 -2 -[address] 70 ON ti OX 50 6- 4- 00 SI 07 NE ve YZ 32 20 20 DE LL IN 30 10 10 E 4 PH PATTI PA AR HN M MA 25 CY MG OF CA CY P NT HI AN A ME 00 11 11 4 [address] Ac TO 09 -2 -[address] 13 EP ti OR 30 4- 4- 00 SI 63 HE ve OL 73 20 20 DE NS OL 31 10 10 0 PH DO TA AR N RT MA R RA CY TE OF 50 CY MG NT HI TA AN B A 59 08 11 3 [address] Ac 76 -3 -[address] 90 EP ti 24 0- 3- 00 SI 89 HE ve 80 20 20 DE NS 20 10 10 5 PH DO AR N MA R CY OF CY NT HI AN A HY 00 11 11 2 [address] 17 -2 -[address] 12 EP ti OC 22 3- 3- 00 SI 19 HE ve HL 08 20 20 DE NS OR 38 10 10 OT 0 PH DO HI AR N AZ MA R ID CY E 25 OF MG CY NT TA HI B AN A AC 00 11 11 0 [address] Ac ET 09 -2 -[address] 09 EP ti AM 30 2- 2- 00 SI 74 HE ve IN 15 20 20 DE NS OP 00 10 10 HE 1 PH KE N- AR CO MA N D CY C #3 OF TA BL CY ET NT HI AN A PE 00 11 11 30 7 RI 85 WE Ac NI 09 -1 -1 .0 TE 88 HR ti CI 31 8- 8- 00 30 MA ve LL 17 20 20 AI N IN 40 10 10 D II 1 PH I VK AR WI MA LL 50 CY IA 0 M MG 03 E 93 TA 8 BL # ET 03 93 IB 53 11 11 0 21 7 EA 20 PATTI Ac UP 74 -1 -[address] 00 HN ti RO 60 6- 6- 00 SI 67 SO ve FE 46 20 20 DE N N 60 10 10 CH 80 5 PH AR 0 AR LE MG MA S CY M TA BL OF ET CY NT HI AN A OR 00 11 11 0 20 5 EA 20 PATTI Ac OM 78 -1 -[address] 00 HN ti ET 11 6- 6- 00 SI 69 SO ve PARKER 83 20 20 DE N ZI 01 10 10 CH NE 0 PH AR AR LE 25 MA S CY M MG OF TA BL CY ET NT HI AN A 59 08 10 3 [address] Ac 76 -3 -[address] 90 EP ti 24 0- 7- 00 SI 89 HE ve 80 20 20 DE NS 20 10 10 5 PH DO AR N MA R CY OF CY NT HI AN A TO 13 10 10 4 90 30 EA 19 OC Ac PI 66 -2 -[address] 70 ON ti RA 80 6- 6- 00 SI 09 NE ve MA 03 20 20 DE LL TE 26 10 10 0 PH PATTI 50 AR HN MA MG CY TA OF BL ET CY NT HI AN A ME 00 05 10 5 [address] Ac TO 09 -2 -[address] 73 EP ti OR 30 5- 4- 00 SI 22 HE ve OL 73 20 20 DE NS OL 31 10 10 0 PH DO TA AR N RT MA R RA CY TE OF 50 CY MG NT HI TA AN B A RA 53 08 10 3 [address] Ac NI 74 -2 -[address] 84 EP ti TI 60 5- 4- 00 SI 80 HE ve DI 25 20 20 DE NS NE 30 10 10 5 PH DO 15 AR N 0 MA R MG CY TA OF BL ET CY NT HI AN A LO 45 10 10 2 [address] Ac RA 80 -0 -[address] 38 EP ti TA 20 4- 4- 00 SI 78 HE ve DI 65 20 20 DE NS NE 08 10 10 7 PH DO 10 AR N MA R MG CY TA OF BL ET CY NT HI AN A TR 00 10 10 0 28 5 WA 44 FO Ac AM 37 -2 -2 .0 L- 89 ST ti AD 84 4- 4- 00 MA 30 ER ve OL 15 20 20 RT 2 10 10 10 JA HC 1 PH ME L AR S 50 MA M CY MG # TA 10 BL 05 ET 91 HY 00 09 10 1 [address] 17 -2 -[address] 20 EP ti OC 22 0- 9- 00 SI 62 HE ve HL 08 20 20 DE NS OR 38 10 10 OT 0 PH DO HI AR N AZ MA R ID CY E 25 OF MG CY NT TA HI B AN A 00 09 10 1 [address] Ac 55 -2 -[address] 20 EP ti 50 0- 9- 00 SI 63 HE ve 58 20 20 DE NS 50 10 10 2 PH DO AR N MA R CY OF CY NT HI AN A CE 00 09 10 1 [address] Ac LE 02 -2 -[address] 20 EP ti BR 51 0- 9- 00 SI 64 HE ve EX 52 20 20 DE NS 53 10 10 20 1 PH DO 0 AR N MG MA R CY CA PS OF UL E CY NT HI AN A PEREZ 53 10 10 [address] Ac LF 74 -1 -[address] 49 EP ti AM 60 1- 1- 00 SI 42 HE ve ET 27 20 20 DE NS HO 20 10 10 XA 5 PH DO ZO AR N LE MA R -T CY MP OF DS CY TA NT BL HI ET AN A HY 00 10 10 2 [address] 55 -0 -[address] 46 EP ti OX 50 8- 8- 00 SI 86 HE ve YZ 32 20 20 DE NS IN 30 10 10 E 4 PH DO PA AR N M MA R 25 CY MG OF CA CY P NT HI AN A LO 45 10 10 2 [address] Ac RA 80 -0 -[address] 38 EP ti TA 20 4- 4- 00 SI 78 HE ve DI 65 20 20 DE NS NE 08 10 10 7 PH DO 10 AR N MA R MG CY TA OF BL ET CY NT HI AN A ME 00 10 10 0 [address] Ac TH 78 -0 -[address] 38 EP ti YL 15 4- 4- 00 SI 79 HE ve OR 02 20 20 DE NS ED 20 10 10 NI 7 PH DO SO AR N LO MA R NE CY 4 OF MG CY DO NT SE HI PK AN A 59 08 09 3 [address] Ac 76 -3 -[address] 90 EP ti 24 0- 7- 00 SI 89 HE ve 80 20 20 DE NS 20 10 10 5 PH DO AR N MA R CY OF CY NT HI AN A RA 53 08 09 3 [address] Ac NI 74 -2 -[address] 84 EP ti TI 60 5- 4- 00 SI 80 HE ve DI 25 20 20 DE NS NE 30 10 10 5 PH DO 15 AR N 0 MA R MG CY TA OF BL ET CY NT HI AN A ME 00 05 09 5 [address] Ac TO 09 -2 -[address] 73 EP ti OR 30 5- 2- 00 SI 22 HE ve OL 73 20 20 DE NS OL 31 10 10 0 PH DO TA AR N RT MA R RA CY TE OF 50 CY MG NT HI TA AN B A HY 00 09 09 1 [address] 17 -2 -[address] 20 EP ti OC 22 0- 0- 00 SI 62 HE ve HL 08 20 20 DE NS OR 38 10 10 OT 0 PH DO HI AR N AZ MA R ID CY E 25 OF MG CY NT TA HI B AN A 00 09 09 1 [address] Ac 55 -2 -[address] 20 EP ti 50 0- 0- 00 SI 63 HE ve 58 20 20 DE NS 50 10 10 2 PH DO AR N MA R CY OF CY NT HI AN A CE 00 09 09 1 [address] Ac LE 02 -2 -[address] 20 EP ti BR 51 0- 0- 00 SI 64 HE ve EX 52 20 20 DE NS 53 10 10 20 1 PH DO 0 AR N MG MA R CY CA PS OF UL E CY NT HI AN A 59 09 09 0 8. [address] Ac 31 -1 -[address] 19 EP ti 00 8- 8- 0 SI 64 HE ve 57 20 20 DE NS 92 10 10 0 PH DO AR N MA R CY OF CY NT HI AN A PEREZ 53 09 09 0 [address] Ac LF 74 -1 -[address] 14 EP ti AM 60 5- 5- 00 SI 92 HE ve ET 27 20 20 DE NS HO 20 10 10 XA 5 PH DO ZO AR N LE MA R -T CY MP OF DS CY TA NT BL HI ET AN A 00 09 09 0 9. [address] Ac 00 -0 -[address] 04 EP ti 63 8- 8- 0 SI 12 HE ve 80 20 20 DE NS 11 10 10 2 PH DO AR N MA R CY OF CY NT HI AN A IB 53 09 09 0 [address] Ac UP 74 -0 -[address] 03 EP ti RO 60 7- 7- 00 SI 11 HE ve FE 46 20 20 DE NS N 50 10 10 60 5 PH DO 0 AR N MG MA R CY TA BL OF ET CY NT HI AN A OR 00 08 08 0 [address] Ac OC 09 -3 -[address] 94 EP ti HL 39 1- 1- 00 SI 02 HE ve OR 65 20 20 DE NS PE 20 10 10 RA 1 PH DO ZI AR N NE MA R CY 10 OF MG CY TA NT B HI AN A CI 57 08 08 3 [address] Ac TA 66 -3 -[address] 90 EP ti LO 40 0- 0- 00 SI 89 HE ve OR 50 20 20 DE NS AM 91 10 10 8 PH DO HB AR N R MA R 40 CY MG OF TA CY BL NT ET HI AN A HY 00 01 08 5 [address] 55 -1 -[address] 98 EP ti OX 50 5- 8- 00 SI 83 HE ve YZ 32 20 20 DE NS IN 30 10 10 E 4 PH DO PA AR N M MA R 25 CY MG OF CA CY P NT HI AN A SE 16 07 08 5 [address] Ac RT 71 -3 -[address] 53 EP ti RA 40 1- 8- 00 SI 77 HE ve LI 61 20 20 DE NS NE 30 10 10 6 PH DO HC AR N L MA R 10 CY 0 MG OF TA CY BL NT ET HI AN A PEREZ 53 08 08 0 [address] Ac LF 74 -2 -[address] 84 EP ti AM 60 5- 5- 00 SI 79 HE ve ET 27 20 20 DE NS HO 20 10 10 XA 5 PH DO ZO AR N LE MA R -T CY MP OF DS CY TA NT BL HI ET AN A RA 53 08 08 3 [address] Ac NI 74 -2 -[address] 84 EP ti TI 60 5- 5- 00 SI 80 HE ve DI 25 20 20 DE NS NE 30 10 10 5 PH DO 15 AR N 0 MA R MG CY TA OF BL ET CY NT HI AN A ME 00 05 08 5 [address] Ac TO 09 -2 -[address] 73 EP ti OR 30 5- 3- 00 SI 22 HE ve OL 73 20 20 DE NS OL 31 10 10 0 PH DO TA AR N RT MA R RA CY TE OF 50 CY MG NT HI TA AN B A CE 00 08 08 0 40 10 EA 18 WE Ac PH 09 -2 -[address] 81 HR ti AL 33 3- 3- 00 SI 43 MA ve EX 14 20 20 DE N IN 70 10 10 II 5 PH I 50 AR WI 0 MA LL MG CY IA M CA OF E PS UL CY E NT HI AN A BU 00 08 08 0 12 3 EA 18 GA Ac TA 60 -2 -[address] 78 IN ti LB 32 0- 0- 00 SI 50 EY ve -A 54 20 20 DE CE 42 10 10 PR TA 8 PH CH PR AR AE N- MA L CA CY S FF OF 50 -3 CY 25 NT -4 HI 0 AN A SE 16 07 07 5 [address] Ac RT 71 -3 -[address] 53 EP ti RA 40 1- 1- 00 SI 77 HE ve LI 61 20 20 DE NS NE 30 10 10 6 PH DO HC AR N L MA R 10 CY 0 MG OF TA CY BL NT ET HI AN A RA 53 05 07 2 [address] Ac NI 74 -2 -[address] 70 EP ti TI 60 4- 5- 00 SI 79 HE ve DI 25 20 20 DE NS NE 30 10 10 5 PH DO 15 AR N 0 MA R MG CY TA OF BL ET CY NT HI AN A ME 00 05 07 5 [address] Ac TO 09 -2 -[address] 73 EP ti OR 30 5- 5- 00 SI 22 HE ve OL 73 20 20 DE NS OL 31 10 10 0 PH DO TA AR N RT MA R RA CY TE OF 50 CY MG NT HI TA AN B A AC 00 07 07 0 60 30 EA 18 OC Ac ET 55 -1 -[address] 38 ON ti AZ 50 9- 9- 00 SI 96 NE ve OL 51 20 20 DE LL AM 30 10 10 ID 2 PH PATTI E AR HN ER MA CY 50 0 OF MG CY CA NT P HI AN A HY 00 01 07 5 [address] 55 -1 -[address] 98 EP ti OX 50 5- 6- 00 SI 83 HE ve YZ 32 20 20 DE NS IN 30 10 10 E 4 PH DO PA AR N M MA R 25 CY MG OF CA CY P NT HI AN A NO 00 01 07 5 90 30 EA 15 OC Ac RT 59 -1 -[address] 98 ON ti RI 15 5- 6- 00 SI 85 NE ve PT 78 20 20 DE LL YL 60 10 10 IN 1 PH PATTI E AR HN HC MA L CY 10 OF MG CY CA NT P HI AN A IB 53 07 07 3 [address] Ac UP 74 -1 -[address] 30 EP ti RO 60 2- 2- 00 SI 19 HE ve FE 46 20 20 0 DE NS N 50 10 10 60 5 PH DO 0 AR N MG MA R CY TA BL OF ET CY NT HI AN A RA 53 05 06 2 [address] Ac NI 74 -2 -[address] 70 EP ti TI 60 4- 6- 00 SI 79 HE ve DI 25 20 20 DE NS NE 30 10 10 5 PH DO 15 AR N 0 MA R MG CY TA OF BL ET CY NT HI AN A ME 00 05 06 5 [address] Ac TO 09 -2 -[address] 73 EP ti OR 30 5- 6- 00 SI 22 HE ve OL 73 20 20 DE NS OL 31 10 10 0 PH DO TA AR N RT MA R RA CY TE OF 50 CY MG NT HI TA AN B A SE 16 06 06 0 [address] Ac RT 71 -2 -[address] 12 EP ti RA 40 6- 6- 00 SI 60 HE ve LI 61 20 20 DE NS NE 30 10 10 6 PH DO HC AR N L MA R 10 CY 0 MG OF TA CY BL NT ET HI AN A 60 06 06 0 [address] Ac 25 -2 -[address] 05 EP ti 80 1- 1- 00 SI 76 HE ve 23 20 20 0 DE NS 91 10 10 6 PH DO AR N MA R CY OF CY NT HI AN A PEREZ 53 06 06 0 [address] Ac LF 74 -1 -[address] 03 EP ti AM 60 8- 8- 00 SI 12 HE ve ET 27 20 20 DE NS HO 20 10 10 XA 5 PH DO ZO AR N LE MA R -T CY MP OF DS CY TA NT BL HI ET AN A AC 00 01 06 5 60 30 EA 15 OC Ac ET 55 -1 -[address] 98 ON ti AZ 50 5- 7- 00 SI 82 NE ve OL 51 20 20 DE LL AM 30 10 10 ID 2 PH PATTI E AR HN ER MA CY 50 0 OF MG CY CA NT P HI AN A NO 00 01 06 5 90 30 EA 15 OC Ac RT 59 -1 -[address] 98 ON ti RI 15 5- 7- 00 SI 85 NE ve PT 78 20 20 DE LL YL 60 10 10 IN 1 PH PATTI E AR HN HC MA L CY 10 OF MG CY CA NT P HI AN A 00 06 06 1 [address] Ac 55 -0 -[address] 83 EP ti 50 2- 7- 00 SI 56 HE ve 58 20 20 DE NS 50 10 10 2 PH DO AR N MA R CY OF CY NT HI AN A CE 00 06 06 0 40 10 EA 17 WE Ac PH 09 -1 -[address] 94 HR ti AL 33 SI 08 MA ve EX 14 20 20 DE N IN 70 10 10 II 5 PH I 50 AR WI 0 MA LL MG CY IA M CA OF E PS UL CY E NT HI AN A OR 00 06 06 0 12 3 EA 17 WE Ac OM 78 -1 -[address] 94 HR ti ET 11 SI 09 MA ve PARKER 83 20 20 DE N ZI 01 10 10 II NE 0 PH I AR WI 25 MA LL CY IA MG M OF E TA BL CY ET NT HI AN A HY 00 01 06 5 [address] 55 -1 -[address] 98 EP ti OX 50 5- 2- 00 SI 83 HE ve YZ 32 20 20 DE NS IN 30 10 10 E 4 PH DO PA AR N M MA R 25 CY MG OF CA CY P NT HI AN A 00 06 06 1 [address] Ac 55 -0 -[address] 83 EP ti 50 2- 2- 00 SI 56 HE ve 58 20 20 DE NS 50 10 10 2 PH DO AR N MA R CY OF CY NT HI AN A SE 16 03 05 2 [address] Ac RT 71 -2 -[address] 98 EP ti RA 40 9- 7- 00 SI 23 HE ve LI 61 20 20 DE NS NE 30 10 10 6 PH DO HC AR N L MA R 10 CY 0 MG OF TA CY BL NT ET HI AN A ME 00 05 05 5 [address] Ac TO 09 -2 -[address] 73 EP ti OR 30 5- 5- 00 SI 22 HE ve OL 73 20 20 DE NS OL 31 10 10 0 PH DO TA AR N RT MA R RA CY TE OF 50 CY MG NT HI TA AN B A RA 53 05 05 2 [address] Ac NI 74 -2 -[address] 70 EP ti TI 60 4- 4- 00 SI 79 HE ve DI 25 20 20 DE NS NE 30 10 10 5 PH DO 15 AR N 0 MA R MG CY TA OF BL ET CY NT HI AN A DI 00 05 05 0 14 7 WA 70 GA Ac CL 78 -2 -2 .0 L- 71 IN ti OF 11 3- 3- 00 MA 74 EY ve EN 78 20 20 RT 2 AC 90 10 10 PR 1 PH CH SO AR AE D MA L EC CY S # 75 10 MG 05 91 TA B AC 00 01 05 5 60 30 EA 15 OC Ac ET 55 -1 -[address] 98 ON ti AZ 50 5- 8- 00 SI 82 NE ve OL 51 20 20 DE LL AM 30 10 10 ID 2 PH PATTI E AR HN ER MA CY 50 0 OF MG CY CA NT P HI AN A NO 00 01 05 5 90 30 EA 15 OC Ac RT 59 -1 -[address] 98 ON ti RI 15 5- 4- 00 SI 85 NE ve PT 78 20 20 DE LL YL 60 10 10 IN 1 PH PATTI E AR HN HC MA L CY 10 OF MG CY CA NT P HI AN A AC 00 05 05 0 [address] Ac ET 40 -0 -[address] 49 EP ti AM 60 6- 6- 00 SI 63 HE ve IN 48 20 20 DE NS OP 41 10 10 HE 0 PH KE N- AR CO MA N D CY C #3 OF TA BL CY ET NT HI AN A CE 00 04 04 0 21 7 EA 17 GA Ac PH 09 -3 -[address] 41 IN ti AL 33 0- 0- 00 SI 52 EY ve EX 14 20 20 DE IN 70 10 10 PR 5 PH CH 50 AR AE 0 MA L MG CY S CA OF PS UL CY E NT HI AN A ME 00 12 04 4 [address] Ac TO 09 -2 -[address] 69 EP ti OR 30 2- 4- 00 SI 71 HE ve OL 73 20 20 DE NS OL 31 09 10 0 PH DO TA AR N RT MA R RA CY TE OF 50 CY MG NT HI TA AN B A SE 16 03 04 2 [address] Ac RT 71 -2 -[address] 98 EP ti RA 40 9- 4- 00 SI 23 HE ve LI 61 20 20 DE NS NE 30 10 10 6 PH DO HC AR N L MA R 10 CY 0 MG OF TA CY BL NT ET HI AN A RA 53 11 04 5 [address] Ac NI 74 -1 -[address] 15 EP ti TI 60 6- 1- 00 SI 04 HE ve DI 25 20 20 DE NS NE 30 09 10 5 PH DO 15 AR N 0 MA R MG CY TA OF BL ET CY NT HI AN A AC 00 01 04 5 60 30 EA 15 OC Ac ET 55 -1 -[address] 98 ON ti AZ 50 5- 7- 00 SI 82 NE ve OL 51 20 20 DE LL AM 30 10 10 ID 2 PH PATTI E AR HN ER MA CY 50 0 OF MG CY CA NT P HI AN A HY 00 01 04 5 [address] 55 -1 -[address] 98 EP ti OX 50 5- 7- 00 SI 83 HE ve YZ 32 20 20 DE NS IN 30 10 10 E 4 PH DO PA AR N M MA R 25 CY MG OF CA CY P NT HI AN A IN 00 01 04 5 60 10 EA 15 OC Ac DO 78 -1 -[address] 98 ON ti ME 12 5- 7- 00 SI 84 NE ve TH 32 20 20 DE LL AC 51 10 10 IN 0 PH PATTI AR HN 25 MA CY MG OF CA PS CY UL NT E HI AN A AM 00 04 04 0 [address] Ac OX 78 -1 -[address] 19 EP ti IC 12 4- 4- 00 SI 37 HE ve IL 61 20 20 DE NS LI 30 10 10 N 5 PH KE 50 AR 0 MA N MG CY C CA OF PS UL CY E NT HI AN A AC 00 04 04 0 [address] Ac ET 40 -1 -[address] 19 EP ti AM 60 4- 4- 00 SI 38 HE ve IN 48 20 20 DE NS OP 41 10 10 HE 0 PH KE N- AR CO MA N D CY C #3 OF TA BL CY ET NT HI AN A NO 00 01 04 5 90 30 EA 15 OC Ac RT 59 -1 -[address] 98 ON ti RI 15 5- 2- 00 SI 85 NE ve PT 78 20 20 DE LL YL 60 10 10 IN 1 PH PATTI E AR HN HC MA L CY 10 OF MG CY CA NT P HI AN A AM 00 04 04 0 [address] Ac OX 78 -0 -[address] 06 EP ti IC 12 5- 5- 00 SI 93 HE ve IL 61 20 20 DE NS LI 30 10 10 N 5 PH DO 50 AR N 0 MA R MG CY CA OF PS UL CY E NT HI AN A OR 00 04 04 0 [address] Ac OM 78 -0 -[address] 06 EP ti ET 11 5- 5- 00 SI 94 HE ve PARKER 83 20 20 DE NS ZI 01 10 10 NE 0 PH DO AR N 25 MA R CY MG OF TA BL CY ET NT HI AN A IN 00 01 04 5 60 10 EA 15 OC Ac DO 78 -1 -[address] 98 ON ti ME 12 5 SI 84 NE ve TH 32 20 20 DE LL AC 51 10 10 IN 0 PH PATTI AR HN 25 MA CY MG OF CA PS CY UL NT E HI AN A SE 16 03 03 2 [address] Ac RT 71 -2 -[address] 98 EP ti RA 40 9 9 00 SI 23 HE ve LI 61 20 20 DE NS NE 30 10 10 6 PH DO HC AR N L MA R 10 CY 0 MG OF TA CY BL NT ET HI AN A OR 00 03 03 0 [address] Ac OC 09 -2 -[address] 98 EP ti HL 39 9- 9- 00 SI 24 HE ve OR 65 20 20 DE NS PE 20 10 10 RA 1 PH DO ZI AR N NE MA R CY 10 OF MG CY TA NT B HI AN A RA 53 11 03 5 [address] Ac NI 74 -1 -[address] 15 EP ti TI 60 6- 2- 00 SI 04 HE ve DI 25 20 20 DE NS NE 30 09 10 5 PH DO 15 AR N 0 MA R MG CY TA OF BL ET CY NT HI AN A ME 00 12 03 4 [address] Ac TO 09 -2 -[address] 69 EP ti OR 30 2- 2- 00 SI 71 HE ve OL 73 20 20 DE NS OL 31 09 10 0 PH DO TA AR N RT MA R RA CY TE OF 50 CY MG NT HI TA AN B A OR 00 03 03 12 3 RI 82 Ac OM 78 -2 -2 .0 TE 63 OL ti ET 11 0- 0- 00 27 ET ve PARKER 83 20 20 AI TE ZI 00 10 10 D NE 1 PH JE AR FF 25 MA RE CY Y MG M 03 TA 93 BL 8 ET # 03 93 AC 00 01 03 5 60 30 EA 15 OC Ac ET 55 -1 -[address] 98 ON ti AZ 50 5- 9- 00 SI 82 NE ve OL 51 20 20 DE LL AM 30 10 10 ID 2 PH PATTI E AR HN ER MA CY 50 0 OF MG CY CA NT P HI AN A IN 00 01 03 5 60 10 EA 15 OC Ac DO 78 -1 -[address] 98 ON ti ME 12 5- 9 00 SI 84 NE ve TH 32 20 20 DE LL AC 51 10 10 IN 0 PH PATTI AR HN 25 MA CY MG OF CA PS CY UL NT E HI AN A NO 00 01 03 5 90 30 EA 15 OC Ac RT 59 -1 -[address] 98 ON ti RI 15 5- 2- 00 SI 85 NE ve PT 78 20 20 DE LL YL 60 10 10 IN 1 PH PATTI E AR HN HC MA L CY 10 OF MG CY CA NT P HI AN A OR 00 03 03 0 [address] Ac OM 78 -1 -[address] 72 EP ti ET 11 0- 0- 00 SI 68 HE ve PARKER 83 20 20 DE NS ZI 01 10 10 NE 0 PH DO AR N 25 MA R CY MG OF TA BL CY ET NT HI AN A HY 00 01 03 5 [address] 55 -1 -[address] 98 EP ti OX 50 5- 1- 00 SI 83 HE ve YZ 32 20 20 DE NS IN 30 10 10 E 4 PH DO PA AR N M MA R 25 CY MG OF CA CY P NT HI AN A IN 00 01 03 5 60 10 EA 15 OC Ac DO 78 -1 -[address] 98 ON ti ME 12 5- 1- 00 SI 84 NE ve TH 32 20 20 DE LL AC 51 10 10 IN 0 PH PATTI AR HN 25 MA CY MG OF CA PS CY UL NT E HI AN A SE 16 11 02 03 [address] Ac RT 71 -1 -[address] 15 EP ti RA 40 6- 6- 00 SI 06 HE ve LI 61 20 20 DE NS NE 30 09 10 6 PH DO HC AR N L MA R 10 CY 0 MG OF CY TA NT BL HI ET AN A IN 00 02 01 60 10 EA 15 OC Ac DO 78 -1 -[address] 98 ON ti ME 12 5- 6- 00 SI 84 NE ve TH 32 20 20 DE LL AC 51 10 10 IN 0 PH PATTI AR HN 25 MA CY MG OF CA CY PS NT UL HI E AN A AC 00 02 01 60 30 EA 15 OC Ac ET 55 -1 -[address] 98 ON ti AZ 50 5- 6- 00 SI 82 NE ve OL 51 20 20 DE LL AM 30 10 10 ID 2 PH PATTI E AR HN ER MA CY 50 0 OF MG CY NT CA HI P AN A NO 00 02 00 90 30 EA 15 OC Ac RT 59 -1 -[address] 98 ON ti RI 15 5- 6- 00 SI 85 NE ve PT 78 20 20 DE LL YL 60 10 10 IN 1 PH PATTI E AR HN HC MA L CY 10 OF MG CY NT CA HI P AN A AZ 00 02 00 6. 5 WA 70 GA Ac IT 78 -2 -1 00 L- 55 IN ti HR 11 3- 1- 0 MA 65 EY ve OM 49 20 20 RT 3 YC 66 10 10 PR IN 8 PH CH AR AE 25 MA L 0 CY S MG #5 TA 91 BL ET IN 00 09 01 00 60 10 EA 15 OC Ac DO 78 -1 -[address] 98 ON ti ME 12 5- 8- 00 SI 84 NE ve TH 32 20 20 DE LL AC 51 10 10 IN 0 PH PATTI AR HN 25 MA CY MG OF CA CY PS NT UL HI E AN A AC 00 09 01 00 60 30 EA 15 OC Ac ET 55 -1 -[address] 98 ON ti AZ 50 5- 8- 00 SI 82 NE ve OL 51 20 20 DE LL AM 30 10 10 ID 2 PH PATTI E AR HN ER MA CY 50 0 OF MG CY NT CA HI P AN A HY 00 01 01 00 [address] 55 -1 -[address] 98 EP ti OX 50 5- 8- 00 SI 83 HE ve YZ 32 20 20 DE NS IN 30 10 10 E 4 PH DO PA AR N M MA R 25 CY MG OF CY CA NT P HI AN A SE 16 11 01 02 [address] Ac RT 71 -1 -[address] 15 EP ti RA 40 6- 8- 00 SI 06 HE ve LI 61 20 20 DE NS NE 30 09 10 6 PH DO HC AR N L MA R 10 CY 0 MG OF CY TA NT BL HI ET AN A ME 00 12 01 01 [address] Ac TO 09 -2 -[address] 69 EP ti OR 30 2- 8- 00 SI 71 HE ve OL 73 20 20 DE NS OL 31 09 10 0 PH DO TA AR N RT MA R RA CY TE OF 50 CY NT MG HI AN TA A B NO 00 08 01 04 90 30 EA 13 OC Ac RT 59 -2 -[address] 98 ON ti RI 15 5- 8- 00 SI 90 NE ve PT 78 20 20 DE LL YL 60 09 10 IN 1 PH PATTI E AR HN HC MA L CY 10 OF MG CY NT CA HI P AN A RA 53 11 01 02 [address] Ac NI 74 -1 -[address] 15 EP ti TI 60 6- 8- 00 SI 04 HE ve DI 25 20 20 DE NS NE 30 09 10 5 PH DO 15 AR N 0 MA R MG CY TA OF BL CY ET NT HI AN A 00 12 01 00 [address] Ac 55 -3 -[address] 78 EP ti 50 0- 4- 00 SI 89 HE ve 58 20 20 DE NS 50 09 10 2 PH DO AR N MA R CY OF CY NT HI AN A SE 16 11 12 01 [address] Ac RT 71 -1 -[address] 15 EP ti RA 40 6- 1- 00 SI 06 HE ve LI 61 20 20 DE NS NE 30 09 09 6 PH DO HC AR N L MA R 10 CY 0 MG OF CY TA NT BL HI ET AN A CY 00 12 12 00 15 5 EA 15 WE Ac CL 59 -1 -[address] 59 HR ti OB 15 5- 1- 00 SI 46 MA ve EN 65 20 20 DE N ZA 80 09 09 II OR 1 PH I IN AR WI E MA LL 10 CY IA M MG OF E CY TA NT BL HI ET AN A ME 00 12 12 00 [address] Ac TO 09 -2 -[address] 69 EP ti OR 30 2- 1- 00 SI 71 HE ve OL 73 20 20 DE NS OL 31 09 09 0 PH DO TA AR N RT MA R RA CY TE OF 50 CY NT MG HI AN TA A B RA 53 11 12 01 [address] Ac NI 74 -1 -[address] 15 EP ti TI 60 6- 1- 00 SI 04 HE ve DI 25 20 20 DE NS NE 30 09 09 5 PH DO 15 AR N 0 MA R MG CY TA OF BL CY ET NT HI AN A HY 00 10 12 02 [address] 18 -2 -3 .0 L- 42 EP ti OX 50 4- 1- 00 MA 70 HE ve YZ 61 20 20 RT 4 NS IN 30 09 09 E 1 PH DO PA AR N M MA R 25 CY MG #5 91 CA P NO 00 08 12 03 90 30 EA 13 OC Ac RT 59 -2 -[address] 98 ON ti RI 15 5- 7- 00 SI 90 NE ve PT 78 20 20 DE LL YL 60 09 09 IN 1 PH PATTI E AR HN HC MA L CY 10 OF MG CY NT CA HI P AN A AC 00 08 12 03 60 30 EA 13 OC Ac ET 55 -2 -[address] 98 ON ti AZ 50 5- 7- 00 SI 88 NE ve OL 51 20 20 DE LL AM 30 09 09 ID 2 PH PATTI E AR HN ER MA CY 50 0 OF MG CY NT CA HI P AN A IB 53 12 12 00 [address] Ac UP 74 -0 -[address] 48 EP ti RO 60 8- 7- 00 SI 75 HE ve FE 46 20 20 DE NS N 50 09 09 60 5 PH DO 0 AR N MG MA R CY TA BL OF ET CY NT HI AN A RA 53 11 12 00 [address] Ac NI 74 -1 -[address] 15 EP ti TI 60 6- 3- 00 SI 04 HE ve DI 25 20 20 DE NS NE 30 09 09 5 PH DO 15 AR N 0 MA R MG CY TA OF BL CY ET NT HI AN A SE 16 11 12 00 [address] Ac RT 71 -1 -[address] 15 EP ti RA 40 6- 3- 00 SI 06 HE ve LI 61 20 20 DE NS NE 30 09 09 6 PH DO HC AR N L MA R 10 CY 0 MG OF CY TA NT BL HI ET AN A NA 00 11 12 00 [address] Ac OR 09 -1 -[address] 15 EP ti OX 30 6- 3- 00 SI 05 HE ve EN 14 20 20 DE NS 90 09 09 50 1 PH DO 0 AR N MG MA R CY TA BL OF ET CY NT HI AN A HY 00 10 12 01 [address] 18 -2 -0 .0 L- 42 EP ti OX 50 4- 3- 00 MA 70 HE ve YZ 61 20 20 RT 4 NS IN 30 09 09 E 1 PH DO PA AR N M MA R 25 CY MG #5 91 CA P ME 00 07 12 04 [address] Ac TO 09 -1 -[address] 53 EP ti OR 30 7- 3- 00 SI 68 HE ve OL 73 20 20 DE NS OL 31 09 09 0 PH DO TA AR N RT MA R RA CY TE OF 50 CY NT MG HI AN TA A B NO 00 08 11 02 90 30 EA 13 OC Ac RT 59 -2 -[address] 98 ON ti RI 15 5- 9- 00 SI 90 NE ve PT 78 20 20 DE LL YL 60 09 09 IN 1 PH PATTI E AR HN HC MA L CY 10 OF MG CY NT CA HI P AN A 00 11 11 00 8. 2 RI 80 GA Ac 40 -0 -1 00 TE 72 IN ti 60 4- 9- 0 65 EY ve 35 20 20 AI 70 09 09 D PR 5 PH CH AR AE M L #3 S 93 8 CI 00 11 11 00 14 7 EA 15 GA Ac OR 14 -1 -[address] 07 IN ti OF 39 0- 9- 00 SI 01 EY ve LO 92 20 20 DE XA 80 09 09 PR CI 1 PH CH N AR AE HC MA L L CY S 50 0 OF MG CY NT TA HI B AN A CE 00 11 11 00 21 7 RI 80 GA Ac PH 14 -0 -1 .0 TE 72 IN ti AL 39 4- 9- 00 67 EY ve EX 89 20 20 AI IN 70 09 09 D PR 1 PH CH 50 AR AE 0 M L MG #3 S 93 CA 8 PS UL E HY 00 10 11 00 [address] 18 -2 -0 .0 L- 42 EP ti OX 50 4- 5- 00 MA 70 HE ve YZ 61 20 20 RT 4 NS IN 30 09 09 E 1 PH DO PA AR N M MA R 25 CY MG #5 91 CA P AC 00 08 11 02 60 30 EA 13 OC Ac ET 55 -2 -[address] 98 ON ti AZ 50 5- 5- 00 SI 88 NE ve OL 51 20 20 DE LL AM 30 09 09 ID 2 PH PATTI E AR HN ER MA CY 50 0 OF MG CY NT CA HI P AN A ME 00 07 11 03 [address] Ac TO 09 -1 -[address] 53 EP ti OR 30 7- 5- 00 SI 68 HE ve OL 73 20 20 DE NS OL 31 09 09 0 PH DO TA AR N RT MA R RA CY TE OF 50 CY NT MG HI AN TA A B NO 00 08 10 01 90 30 EA 13 OC Ac RT 59 -2 -[address] 98 ON ti RI 15 5- 8- 00 SI 90 NE ve PT 78 20 20 DE LL YL 60 09 09 IN 1 PH PATTI E AR HN HC MA L CY 10 OF MG CY NT CA HI P AN A SE 16 07 10 02 [address] Ac RT 71 -3 -[address] 68 EP ti RA 40 1- 8- 00 SI 56 HE ve LI 61 20 20 DE NS NE 30 09 09 6 PH DO HC AR N L MA R 10 CY 0 MG OF CY TA NT BL HI ET AN A IN 00 08 10 01 40 6 EA 13 OC Ac DO 78 -2 -[address] 98 ON ti ME 12 5- 8- 00 SI 89 NE ve TH 32 20 20 DE LL AC 51 09 09 IN 0 PH PATTI AR HN 25 MA CY MG OF CA CY PS NT UL HI E AN A AC 00 08 10 01 60 30 EA 13 OC Ac ET 55 -2 -[address] 98 ON ti AZ 50 5- 8- 00 SI 88 NE ve OL 51 20 20 DE LL AM 30 09 09 ID 2 PH PATTI E AR HN ER MA CY 50 0 OF MG CY NT CA HI P AN A HY 00 07 09 02 [address] 55 -1 -[address] 53 EP ti OX 50 7- 4- 00 SI 69 HE ve YZ 32 20 20 DE NS IN 30 09 09 E 4 PH DO PA AR N M MA R 25 CY MG OF CY CA NT P HI AN A ME 00 07 09 02 [address] Ac TO 09 -1 -[address] 53 EP ti OR 30 7- 4- 00 SI 68 HE ve OL 73 20 20 DE NS OL 31 09 09 0 PH DO TA AR N RT MA R RA CY TE OF 50 CY NT MG HI AN TA A B NO 00 08 09 00 90 30 EA 13 OC Ac RT 59 -2 -[address] 98 ON ti RI 15 5- 0- 00 SI 90 NE ve PT 78 20 20 DE LL YL 60 09 09 IN 1 PH PATTI E AR HN HC MA L CY 10 OF MG CY NT CA HI P AN A SE 16 07 09 01 [address] Ac RT 71 -3 -[address] 68 EP ti RA 40 1- 0- 00 SI 56 HE ve LI 61 20 20 DE NS NE 30 09 09 6 PH DO HC AR N L MA R 10 CY 0 MG OF CY TA NT BL HI ET AN A AC 00 08 09 00 60 30 EA 13 OC Ac ET 55 -2 -[address] 98 ON ti AZ 50 5- 0- 00 SI 88 NE ve OL 51 20 20 DE LL AM 30 09 09 ID 2 PH PATTI E AR HN ER MA CY 50 0 OF MG CY NT CA HI P AN A IN 00 08 09 00 40 6 EA 13 OC Ac DO 78 -2 -[address] 98 ON ti ME 12 5- 0- 00 SI 89 NE ve TH 32 20 20 DE LL AC 51 09 09 IN 0 PH PATTI AR HN 25 MA CY MG OF CA CY PS NT UL HI E AN A HY 00 07 08 01 [address] 55 -1 -[address] 53 EP ti OX 50 7- 7- 00 SI 69 HE ve YZ 32 20 20 DE NS IN 30 09 09 E 4 PH DO PA AR N M MA R 25 CY MG OF CY CA NT P HI AN A BU 00 08 08 00 [address] Ac TA 59 -1 -[address] 90 EP ti LB 13 9- 7- 00 SI 95 HE ve -A 36 20 20 DE NS CE 90 09 09 TA 5 PH DO PR AR N N- MA R CA CY FF OF 50 CY -3 NT 25 HI -4 AN 0 A ME 00 07 08 01 [address] Ac TO 09 -1 -[address] 53 EP ti OR 30 7- 7- 00 SI 68 HE ve OL 73 20 20 DE NS OL 31 09 09 0 PH DO TA AR N RT MA R RA CY TE OF 50 CY NT MG HI AN TA A B SE 16 07 08 00 [address] Ac RT 71 -3 -[address] 68 EP ti RA 40 1- 3- 00 SI 56 HE ve LI 61 20 20 DE NS NE 30 09 09 6 PH DO HC AR N L MA R 10 CY 0 MG OF CY TA NT BL HI ET AN A RA 64 02 08 04 [address] Ac NI 67 -0 -[address] 39 EP ti TI 90 9- 3- 00 SI 32 HE ve DI 90 20 20 DE NS NE 60 09 09 3 PH DO 15 AR N 0 MA R MG CY TA OF BL CY ET NT HI AN A BU 00 08 08 00 12 3 EA 13 GA Ac TA 59 -0 -[address] 75 IN ti LB 13 6- 3- 00 SI 11 EY ve -A 36 20 20 DE CE 90 09 09 PR TA 5 PH CH PR AR AE N- MA L CA CY S FF OF 50 CY -3 NT 25 HI -4 AN 0 A TO 60 06 07 01 [address] Ac PI 50 -0 -[address] 03 EP ti RA 52 5- 0- 00 SI 08 HE ve MA 76 20 20 DE NS TE 00 09 09 6 PH DO 25 AR N MA R MG CY TA OF BL CY ET NT HI AN A DI 00 07 07 00 14 7 WA 70 GA Ac CL 78 -1 -3 .0 L- 28 IN ti OF 11 1- 0- 00 MA 16 EY ve EN 78 20 20 RT 3 AC 90 09 09 PR 1 PH CH SO AR AE D MA L EC CY S 75 #5 91 MG TA B ME 00 07 07 [address] Ac TO 09 -1 -[address] 53 EP ti OR 30 7- 0- 00 SI 68 HE ve OL 73 20 20 DE NS OL 31 09 09 0 PH DO TA AR N RT MA R RA CY TE OF 50 CY NT MG HI AN TA A B BU 00 07 07 00 12 3 EA 13 GA Ac TA 59 -2 -[address] 60 IN ti LB 13 3- 0- 00 SI 05 EY ve -A 36 20 20 DE CE 90 09 09 PR TA 5 PH CH PR AR AE N- MA L CA CY S FF OF 50 CY -3 NT 25 HI -4 AN 0 A HY 00 07 07 00 [address] 55 -1 -[address] 53 EP ti OX 50 7- 0- 00 SI 69 HE ve YZ 32 20 20 DE NS IN 30 09 09 E 4 PH DO PA AR N M MA R 25 CY MG OF CY CA NT P HI AN A BU 00 07 07 00 12 2 EA 13 GA Ac TA 60 -0 -[address] 41 IN ti LB 32 7- 6- 00 SI 30 EY ve -A 54 20 20 DE CE 42 09 09 PR TA 8 PH CH PR AR AE N- MA L CA CY S FF OF 50 CY -3 NT 25 HI -4 AN 0 A SE 16 04 07 02 [address] Ac RT 71 -2 -[address] 43 EP ti RA 40 1- 2- 00 SI 92 HE ve LI 61 20 20 DE NS NE 30 09 09 6 PH DO HC AR N L MA R 10 CY 0 MG OF CY TA NT BL HI ET AN A NA 00 06 07 00 10 5 WA 70 MA Ac OR 14 -1 -0 .0 L- 24 RT ti OX 39 3- 2- 00 MA 58 IN ve EN 90 20 20 RT 7 J 80 09 09 SO 1 PH MA DI AR NG UM MA AN CY 55 MD 0 #5 MG 91 PS C TA B 00 06 07 00 8. 2 WA 44 GA Ac 40 -2 -0 00 L- 77 IN ti 60 0- 2- 0 MA 57 EY ve 35 20 20 RT 4 70 09 09 PR 5 PH CH AR AE MA L CY S #5 91 PEREZ 53 06 07 00 10 5 WA 70 MA Ac LF 74 -1 -0 .0 L- 24 RT ti AM 60 3- 2- 00 MA 58 IN ve ET 27 20 20 RT 6 J HO 20 09 09 XA 5 PH MA ZO AR NG LE MA AN -T CY MP MD #5 DS 91 PS C TA BL ET ME 00 02 06 04 [address] Ac TO 09 -0 -[address] 39 EP ti OR 30 9- 8- 00 SI 33 HE ve OL 73 20 20 DE NS OL 31 09 09 0 PH DO TA AR N RT MA R RA CY TE OF 50 CY NT MG HI AN TA A B 49 02 06 03 [address] Ac 88 -0 -[address] 39 EP ti 40 9- 8- 00 SI 32 HE ve 54 20 20 DE NS 41 09 09 0 PH DO AR N MA R CY OF CY NT HI AN A TO 50 06 06 00 [address] Ac PA 45 -0 -[address] 03 EP ti MA 80 5- 8- 00 SI 08 HE ve X 63 20 20 DE NS 25 96 09 09 5 PH DO MG AR N MA R TA CY BL ET OF CY NT HI AN A HY 00 04 06 02 [address] 55 -0 -[address] 24 EP ti OX 50 7- 8- 00 SI 45 HE ve YZ 32 20 20 DE NS IN 30 09 09 E 4 PH DO PA AR N M MA R 25 CY MG OF CY CA NT P HI AN A SE 65 04 06 01 [address] Ac RT 86 -2 -[address] 43 EP ti RA 20 1- 4- 00 SI 92 HE ve LI 01 20 20 DE NS NE 30 09 09 5 PH DO HC AR N L MA R 10 CY 0 MG OF CY TA NT BL HI ET AN A BU 00 05 06 00 12 2 EA 12 GA Ac TA 59 -2 -[address] 87 IN ti LB 13 6- 4- 00 SI 78 EY ve -A 36 20 20 DE CE 90 09 09 PR TA 5 PH CH PR AR AE N- MA L CA CY S FF OF 50 CY -3 NT 25 HI -4 AN 0 A TO 50 12 05 04 [address] Ac PA 45 -2 -[address] 83 EP ti MA 80 6- 1- 00 SI 08 HE ve X 63 20 20 DE NS 25 96 08 09 5 PH DO MG AR N MA R TA CY BL ET OF CY NT HI AN A ME 00 02 05 03 [address] Ac TO 09 -0 -[address] 39 EP ti OR 30 9- 1- 00 SI 33 HE ve OL 73 20 20 DE NS OL 31 09 09 0 PH DO TA AR N RT MA R RA CY TE OF 50 CY NT MG HI AN TA A B HY 00 04 05 01 [address] 55 -0 -[address] 24 EP ti OX 50 7- 1- 00 SI 45 HE ve YZ 32 20 20 DE NS IN 30 09 09 E 4 PH DO PA AR N M MA R 25 CY MG OF CY CA NT P HI AN A DI 00 04 05 00 [address] Ac PH 37 -2 -[address] 43 EP ti EN 80 1- 7- 00 SI 91 HE ve OX 41 20 20 DE NS YL 50 09 09 AT 1 PH DO E- AR N AT MA R RO CY P 2. OF 5- CY 0. NT 02 HI 5 AN A SE 65 04 05 00 [address] Ac RT 86 -2 -[address] 43 EP ti RA 20 1- 7- 00 SI 92 HE ve LI 01 20 20 DE NS NE 30 09 09 5 PH DO HC AR N L MA R 10 CY 0 MG OF CY TA NT BL HI ET AN A HY 00 04 04 00 [address] 55 -0 -[address] 24 EP ti OX 50 7- 3- 00 SI 45 HE ve YZ 32 20 20 DE NS IN 30 09 09 E 4 PH DO PA AR N M MA R 25 CY MG OF CY CA NT P HI AN A OR 00 04 04 00 12 3 EA 12 WI Ac OM 78 -0 -[address] 25 CK ti ET 11 8- 3- 00 SI 91 ER ve PARKER 83 20 20 DE ZI 01 09 09 JE NE 0 PH FF AR RE 25 MA Y CY MG OF TA CY BL NT ET HI AN A ME 00 02 04 02 [address] Ac TO 09 -0 -[address] 39 EP ti OR 30 9- 3- 00 SI 33 HE ve OL 73 20 20 DE NS OL 31 09 09 0 PH DO TA AR N RT MA R RA CY TE OF 50 CY NT MG HI AN TA A B 49 02 04 02 [address] Ac 88 -0 -[address] 39 EP ti 40 9- 3- 00 SI 32 HE ve 54 20 20 DE NS 41 09 09 0 PH DO AR N MA R CY OF CY NT HI AN A OR 00 03 04 01 [address] Ac OC 09 -1 -[address] 89 EP ti HL 39 3- 9- 00 SI 23 HE ve OR 65 20 20 DE NS PE 20 09 09 RA 1 PH DO ZI AR N NE MA R CY 10 OF MG CY NT TA HI B AN A 00 12 04 03 [address] Ac 04 -2 -[address] 83 EP ti 50 6- 9- 00 SI 08 HE ve 63 20 20 DE NS 96 08 09 5 PH DO AR N MA R CY OF CY NT HI AN A OR 00 03 03 00 [address] Ac OC 09 -1 -[address] 89 EP ti HL 39 3- 6- 00 SI 23 HE ve OR 65 20 20 DE NS PE 20 09 09 RA 1 PH DO ZI AR N NE MA R CY 10 OF MG CY NT TA HI B AN A ME 00 02 03 01 [address] Ac TO 09 -0 -[address] 39 EP ti OR 30 9- 6- 00 SI 33 HE ve OL 73 20 20 DE NS OL 31 09 09 0 PH DO TA AR N RT MA R RA CY TE OF 50 CY NT MG HI AN TA A B 00 03 03 00 [address] Ac 09 -1 -[address] 89 EP ti 37 3- 6- 00 SI 24 HE ve 17 20 20 DE NS 75 09 09 6 PH DO AR N MA R CY OF CY NT HI AN A HY 00 03 03 00 [address] 55 -0 -[address] 80 EP ti OX 50 9- 6- 00 SI 68 HE ve YZ 32 20 20 DE NS IN 30 09 09 E 4 PH DO PA AR N M MA R 25 CY MG OF CY CA NT P HI AN A 49 02 03 01 [address] Ac 88 -0 -[address] 39 EP ti 40 9- 6- 00 SI 32 HE ve 54 20 20 DE NS 41 09 09 0 PH DO AR N MA R CY OF CY NT HI AN A 00 12 03 02 [address] Ac 04 -2 -[address] 83 EP ti 50 6- 2- 00 SI 08 HE ve 63 20 20 DE NS 96 08 09 5 PH DO AR N MA R CY OF CY NT HI AN A 00 02 03 00 [address] Ac 00 -2 -[address] 66 EP ti 63 7- 2- 00 SI 64 HE ve 80 20 20 DE NS 11 09 09 2 PH DO AR N MA R CY OF CY NT HI AN A OR 00 02 03 00 [address] Ac OC 09 -2 -[address] 66 EP ti HL 39 7- 2- 00 SI 66 HE ve OR 65 20 20 DE NS PE 20 09 09 RA 1 PH DO ZI AR N NE MA R CY 10 OF MG CY NT TA HI B AN A 49 02 02 00 [address] Ac 88 -0 -[address] 39 EP ti 40 9- 6- 00 SI 32 HE ve 54 20 20 DE NS 41 09 09 0 PH DO AR N MA R CY OF CY NT HI AN A ME 00 02 02 00 21 6 EA 11 GA Ac TH 78 -1 -[address] 44 IN ti YL 15 2- 6- 00 SI 32 EY ve OR 02 20 20 DE ED 20 09 09 PR NI 7 PH CH SO AR AE LO MA L NE CY S 4 OF MG CY NT DO HI SE AN PK A ME 00 02 02 00 [address] Ac TO 09 -0 -[address] 39 EP ti OR 30 9- 6- 00 SI 33 HE ve OL 73 20 20 DE NS OL 31 09 09 0 PH DO TA AR N RT MA R RA CY TE OF 50 CY NT MG HI AN TA A B 63 02 02 00 21 7 EA 11 GA Ac 30 -1 -[address] 44 IN ti 40 2- 6- 00 SI 31 EY ve 65 20 20 DE 70 09 09 PR 5 PH CH AR AE MA L CY S OF CY NT HI AN A HY 00 12 02 02 [address] 55 -2 -[address] 83 EP ti OX 50 6- 6- 00 SI 09 HE ve YZ 32 20 20 DE NS IN 30 08 09 E 4 PH DO PA AR N M MA R 25 CY MG OF CY CA NT P HI AN A 59 02 02 00 8. [address] Ac 31 -0 -[address] 36 EP ti 00 5- 2- 0 SI 42 HE ve 57 20 20 DE NS 92 09 09 0 PH DO AR N MA R CY OF CY NT HI AN A 00 12 02 01 [address] Ac 04 -2 -[address] 83 EP ti 50 6- 2- 00 SI 08 HE ve 63 20 20 DE NS 96 08 09 5 PH DO AR N MA R CY OF CY NT HI AN A HY 00 12 01 01 [address] 55 -2 -[address] 83 EP ti OX 50 6- 0- 00 SI 09 HE ve YZ 32 20 20 DE NS IN 30 08 09 E 4 PH DO PA AR N M MA R 25 CY MG OF CY CA NT P HI AN A OR 00 01 01 00 [address] Ac OC 09 -1 -[address] 07 EP ti HL 39 3- 0- 00 SI 28 HE ve OR 65 20 20 DE NS PE 20 09 09 RA 1 PH DO ZI AR N NE MA R CY 10 OF MG CY NT TA HI B AN A DI 00 01 01 00 [address] Ac CY 59 -2 -[address] 18 EP ti CL 10 1- 0- 00 SI 44 HE ve OM 79 20 20 DE NS IN 50 09 09 E 1 PH DO 20 AR N MA R MG CY TA OF BL CY ET NT HI AN A ME 00 01 01 00 [address] Ac TO 09 -0 -[address] 03 EP ti OR 30 9- 5 SI 40 HE ve OL 73 20 20 DE NS OL 31 09 09 0 PH DO TA AR N RT MA R RA CY TE OF 50 CY NT MG HI AN TA A B 49 08 01 04 [address] Ac 88 -1 -[address] 03 EP ti 40 1 SI 47 HE ve 54 20 20 DE NS 41 08 09 0 PH DO AR N MA R CY OF CY NT HI AN A HY 00 12 01 00 [address] 55 -2 -[address] 83 EP ti OX 50 6- 1- 00 SI 09 HE ve YZ 32 20 20 DE NS IN 30 08 09 E 4 PH DO PA AR N M MA R 25 CY MG OF CY CA NT P HI AN A 00 12 01 00 [address] Ac 04 -2 -[address] 83 EP ti 50 6- SI 08 HE ve 63 20 20 DE NS 96 08 09 5 PH DO AR N MA R CY OF CY NT HI AN A DI 00 12 01 00 14 7 EA 10 GA Ac CL 78 -2 -[address] 80 IN ti OF 11 SI 15 EY ve EN 78 20 20 DE AC 90 08 09 PR 1 PH CH SO AR AE D MA L EC CY S 75 OF CY MG NT HI TA AN B A ME 00 08 12 04 [address] Ac TO 09 -1 -[address] 03 EP ti OR 30 SI 48 HE ve OL 73 20 20 DE NS OL 31 08 08 0 PH DO TA AR N RT MA R RA CY TE OF 50 CY NT MG HI AN TA A B CY 00 11 12 01 [address] Ac CL 59 -2 -[address] 43 EP ti OB 15 6- 8- 00 SI 44 HE ve EN 65 20 20 DE NS ZA 80 08 08 OR 1 PH DO IN AR N E MA R 10 CY MG OF CY TA NT BL HI ET AN A HY 00 12 12 00 [address] 55 -0 -[address] 53 EP ti OX 50 3- 8- 00 SI 02 HE ve YZ 32 20 20 DE NS IN 30 08 08 E 4 PH DO PA AR N M MA R 25 CY MG OF CY CA NT P HI AN A 49 08 12 03 [address] Ac 88 -1 -[address] 03 EP ti 40 1- 8- 00 SI 47 HE ve 54 20 20 DE NS 41 08 08 0 PH DO AR N MA R CY OF CY NT HI AN A 00 01 12 11 [address] Ac 09 -0 -1 .0 L- 55 EP ti 37 8- 8- 00 MA 17 HE ve 17 20 20 RT 7 NS 75 08 08 6 PH DO AR N MA R CY #5 91 OR 00 11 12 00 [address] Ac OC 09 -1 -[address] 33 EP ti HL 39 9- 4- 00 SI 68 HE ve OR 65 20 20 DE NS PE 20 08 08 RA 1 PH DO ZI AR N NE MA R CY 10 OF MG CY NT TA HI B AN A LO 60 11 12 00 [address] Ac RA 50 -2 -[address] 46 EP ti TA 50 8- 4- 00 SI 49 HE ve DI 14 20 20 DE NS NE 70 08 08 1 PH DO 10 AR N MA R MG CY TA OF BL CY ET NT HI AN A CY 00 11 12 00 [address] Ac CL 59 -2 -[address] 43 EP ti OB 15 6- 4- 00 SI 44 HE ve EN 65 20 20 DE NS ZA 80 08 08 OR 1 PH DO IN AR N E MA R 10 CY MG OF CY TA NT BL HI ET AN A 00 09 11 02 [address] Ac 04 -0 -[address] 38 EP ti 50 8- 0- 00 SI 58 HE ve 63 20 20 DE NS 96 08 08 5 PH DO AR N MA R CY OF CY NT HI AN A OR 00 11 11 01 [address] Ac OC 09 -0 -[address] 15 EP ti HL 39 5- 0- 00 SI 28 HE ve OR 65 20 20 DE NS PE 20 08 08 RA 1 PH DO ZI AR N NE MA R CY 10 OF MG CY NT TA HI B AN A 00 11 11 00 [address] Ac 78 -0 -[address] 11 EP ti 11 3- 0- 00 SI 03 HE ve 26 20 20 DE NS 20 08 08 1 PH DO AR N MA R CY OF CY NT HI AN A 00 01 11 10 [address] Ac 09 -0 -2 .0 L- 55 EP ti 37 8- 0- 00 MA 17 HE ve 17 20 20 RT 7 NS 75 08 08 6 PH DO AR N MA R CY #5 91 ME 00 08 11 03 [address] Ac TO 09 -1 -[address] 03 EP ti OR 30 1- 0- 00 SI 48 HE ve OL 73 20 20 DE NS OL 31 08 08 0 PH DO TA AR N RT MA R RA CY TE OF 50 CY NT MG HI AN TA A B HY 00 11 11 00 [address] 55 -1 -[address] 23 EP ti OX 50 1- 0- 00 SI 16 HE ve YZ 32 20 20 DE NS IN 30 08 08 E 4 PH DO PA AR N M MA R 25 CY MG OF CY CA NT P HI AN A RA 64 08 11 02 [address] Ac NI 67 -1 -[address] 03 EP ti TI 90 1- 0- 00 SI 47 HE ve DI 90 20 20 DE NS NE 60 08 08 3 PH DO 15 AR N 0 MA R MG CY TA OF BL CY ET NT HI AN A BU 00 11 11 00 [address] Ac TA 59 -1 -[address] 25 EP ti LB 13 2- 0- 00 SI 30 HE ve -A 36 20 20 DE NS CE 90 08 08 TA 5 PH DO PR AR N N- MA R CA CY FF OF 50 CY -3 NT 25 HI -4 AN 0 A HY 00 09 11 02 [address] 55 -0 -[address] 38 EP ti OX 50 8- 7- 00 SI 59 HE ve YZ 32 20 20 DE NS IN 30 08 08 E 4 PH DO PA AR N M MA R 25 CY MG OF CY CA NT P HI AN A BU 00 10 11 01 [address] Ac TA 59 -2 -[address] 93 EP ti LB 13 0- 7- 00 SI 33 HE ve -A 36 20 20 DE NS CE 90 08 08 TA 5 PH DO PR AR N N- MA R CA CY FF OF 50 CY -3 NT 25 HI -4 AN 0 A OR 00 10 11 [address] Ac OM 78 -2 -[address] 93 EP ti ET 11 0- 7- 00 SI 32 HE ve PARKER 83 20 20 DE NS ZI 01 08 08 NE 0 PH DO AR N 25 MA R CY MG OF TA CY BL NT ET HI AN A OR 00 10 11 00 [address] Ac OC 09 -2 -[address] 02 EP ti HL 39 5- 7- 00 SI 05 HE ve OR 65 20 20 DE NS PE 20 08 08 RA 1 PH DO ZI AR N NE MA R CY 10 OF MG CY NT TA HI B AN A 49 08 10 01 60 30 EA 99 No Ac 88 -1 -[address] 03 t ti 40 1- 3- 00 SI 47 Av ve 54 20 20 DE ai 40 08 08 la 2 PH bl AR e MA CY OF CY NT HI AN A ME 00 08 10 02 30 30 EA 99 No Ac TO 09 -1 -[address] 03 t ti OR 30 1- 3- 00 SI 48 Av ve OL 73 20 20 DE ai OL 31 08 08 la 0 PH bl TA AR e RT MA RA CY TE OF 50 CY NT MG HI AN TA A B 00 09 10 01 60 30 EA 99 No Ac 04 -0 -[address] 38 t ti 50 8- 3- 00 SI 58 Av ve 63 20 20 DE ai 96 08 08 la 5 PH bl AR e MA CY OF CY NT HI AN A 00 01 10 09 [address] Ac 09 -0 -2 .0 L- 55 EP ti 37 8- 3- 00 MA 17 HE ve 17 20 20 RT 7 NS 75 08 08 6 PH DO AR N MA R CY #5 91 17 07 10 01 17 17 EA 98 No Ac 27 -2 -[address] 84 t ti 00 5- 3- 00 SI 01 Av ve 72 20 20 DE ai 10 08 08 la 1 PH bl AR e MA CY OF CY NT HI AN A HY 00 09 10 01 60 20 EA [address] 55 -0 -[address] 38 t ti OX 50 8- 9- 00 SI 59 Av ve YZ 32 20 20 DE ai IN 30 08 08 la E 4 PH bl PA AR e M MA 25 CY MG OF CY CA NT P HI AN A CY 00 10 10 00 15 5 EA 99 No Ac CL 59 -0 -[address] 69 t ti OB 15 1- 9- 00 SI 09 Av ve EN 65 20 20 DE ai ZA 80 08 08 la OR 1 PH bl IN AR e E MA 10 CY MG OF CY TA NT BL HI ET AN A AZ 00 09 10 00 6. 5 EA 99 No Ac IT 09 -2 -[address] 58 t ti HR 37 3- 9- 0 SI 96 Av ve OM 14 20 20 DE ai YC 61 08 08 la IN 8 PH bl AR e 25 MA 0 CY MG OF TA CY BL NT ET HI AN A HY 00 09 09 00 60 20 EA [address] 55 -0 -[address] 38 t ti OX 50 8- 6- 00 SI 59 Av ve YZ 32 20 20 DE ai IN 30 08 08 la E 4 PH bl PA AR e M MA 25 CY MG OF CY CA NT P HI AN A ME 00 08 09 01 30 30 EA 99 No Ac TO 09 -1 -[address] 03 t ti OR 30 1 6 00 SI 48 Av ve OL 73 20 20 DE ai OL 31 08 08 la 0 PH bl TA AR e RT MA RA CY TE OF 50 CY NT MG HI AN TA A B OR 00 09 09 00 12 3 EA 99 No Ac OM 78 -0 -[address] 38 t ti ET 11 8 6 SI 60 Av ve PARKER 83 20 20 DE ai ZI 01 08 08 la NE 0 PH bl AR e 25 MA CY MG OF TA CY BL NT ET HI AN A 00 05 10 00 28 6 EA 99 No Ac 78 -0 -[address] 38 t ti 11 8 6 00 SI 61 Av ve 26 20 20 DE ai 20 08 08 la 1 PH bl AR e MA CY OF CY NT HI AN A 00 01 09 08 [address] Ac 09 -0 -2 .0 L- 55 EP ti 37 8- 6- 00 MA 17 HE ve 17 20 20 RT 7 NS 75 08 08 6 PH DO AR N MA R CY #5 91 00 05 10 00 60 30 EA 99 No Ac 04 -0 -[address] 38 t ti 50 8- 6- 00 SI 58 Av ve 63 20 20 DE ai 96 08 08 la 5 PH bl AR e MA CY OF CY NT HI AN A ME 00 08 09 00 21 6 EA 99 No Ac TH 78 -2 -[address] 27 t ti YL 15 9- 00 SI 42 Av ve OR 02 20 20 DE ai ED 20 08 08 la NI 7 PH bl SO AR e LO MA NE CY 4 OF MG CY NT DO HI SE AN PK A 60 08 09 00 14 7 EA 99 No Ac 50 -2 -[address] 27 t ti 51 9- 1- 00 SI 41 Av ve 30 20 20 DE ai 90 08 08 la 1 PH bl AR e MA CY OF CY NT HI AN A 00 07 08 01 24 6 EA 98 No Ac 78 -1 -[address] 76 t ti 11 8- 8- 00 SI 40 Av ve 26 20 20 DE ai 20 08 08 la 1 PH bl AR e MA CY OF CY NT HI AN A HY 00 07 08 01 60 20 EA [address] 55 -2 -[address] 88 t ti OX 50 9 8 00 SI 57 Av ve YZ 32 20 20 DE ai IN 30 08 08 la E 4 PH bl PA AR e M MA 25 CY MG OF CY CA NT P HI AN A PEREZ 53 08 08 00 20 10 EA 99 No Ac LF 48 -1 -[address] 11 t ti AM 90 6- 8 00 SI 20 Av ve ET 14 20 20 DE ai HO 60 08 08 la XA 1 PH bl ZO AR e LE MA -T CY MP OF DS CY NT TA HI BL AN ET A 00 01 08 07 [address] Ac 09 -0 -2 .0 L- 55 EP ti 37 8 8 MA 17 HE ve 17 20 20 RT 7 NS 75 08 08 6 PH DO AR N MA R CY #5 91 ME 00 08 08 00 30 30 EA 99 No Ac TO 09 -1 -[address] 03 t ti OR 30 1 8 SI 48 Av ve OL 73 20 20 DE ai OL 31 08 08 la 0 PH bl TA AR e RT MA RA CY TE OF 50 CY NT MG HI AN TA A B 49 08 08 00 60 30 EA 99 No Ac 88 -1 -[address] 03 t ti 40 1 8 SI 47 Av ve 54 20 20 DE ai 40 08 08 la 2 PH bl AR e MA CY OF CY NT HI AN A 00 05 08 03 60 30 EA 97 No Ac 04 -1 -[address] 98 t ti 50 4- 8- 00 SI 35 Av ve 63 20 20 DE ai 96 08 08 la 5 PH bl AR e MA CY OF CY NT HI AN A HY 00 07 08 00 60 20 EA [address] 55 -2 -[address] 88 t ti OX 50 9- 4- 00 SI 57 Av ve YZ 32 20 20 DE ai IN 30 08 08 la E 4 PH bl PA AR e M MA 25 CY MG OF CY CA NT P HI AN A 17 07 08 00 17 17 EA 98 No Ac 27 -2 -[address] 84 t ti 00 5- 1- 00 SI 01 Av ve 72 20 20 DE ai 10 08 08 la 1 PH bl AR e MA CY OF CY NT HI AN A PEREZ 53 07 08 00 30 15 EA 98 No Ac LF 48 -1 -[address] 76 t ti AM 90 8- 1- 00 SI 41 Av ve ET 14 20 20 DE ai HO 60 08 08 la XA 1 PH bl ZO AR e LE MA -T CY MP OF DS CY NT TA HI BL AN ET A BU 00 07 08 00 28 5 EA 98 No Ac TA 59 -1 -[address] 72 t ti LB 13 5- 1- 00 SI 69 Av ve -A 36 20 20 DE ai CE 90 08 08 la TA 5 PH bl PR AR e N- MA CA CY FF OF 50 CY -3 NT 25 HI -4 AN 0 A 00 07 08 00 24 6 EA 98 No Ac 78 -1 -[address] 76 t ti 11 8- 1- 00 SI 40 Av ve 26 20 20 DE ai 20 08 08 la 1 PH bl AR e MA CY OF CY NT HI AN A 00 01 07 06 [address] Ac 09 -0 -1 .0 L- 55 EP ti 37 8- 7- 00 MA 17 HE ve 17 20 20 RT 7 NS 75 08 08 6 PH DO AR N MA R CY #5 91 HY 00 06 07 01 60 20 EA [address] 55 -1 -[address] 41 t ti OX 50 8- 7- 00 SI 58 Av ve YZ 32 20 20 DE ai IN 30 08 08 la E 4 PH bl PA AR e M MA 25 CY MG OF CY CA NT P HI AN A 00 05 07 02 60 30 EA 97 No Ac 04 -1 -[address] 98 t ti 50 4- 7- 00 SI 35 Av ve 63 20 20 DE ai 96 08 08 la 5 PH bl AR e MA CY OF CY NT HI AN A 49 07 07 00 60 30 EA 98 No Ac 88 -0 -[address] 66 t ti 40 9- 7- 00 SI 11 Av ve 54 20 20 DE ai 40 08 08 la 2 PH bl AR e MA CY OF CY NT HI AN A ME 00 07 07 00 30 30 EA 98 No Ac TO 09 -0 -[address] 66 t ti OR 30 9- 7- 00 SI 10 Av ve OL 73 20 20 DE ai OL 31 08 08 la 0 PH bl TA AR e RT MA RA CY TE OF 50 CY NT MG HI AN TA A B BU 00 06 07 01 28 5 EA 98 No Ac TA 59 -2 -[address] 51 t ti LB 13 6- 7- 00 SI 19 Av ve -A 36 20 20 DE ai CE 90 08 08 la TA 5 PH bl PR AR e N- MA CA CY FF OF 50 CY -3 NT 25 HI -4 AN 0 A 00 01 07 05 15 30 WA 69 No Ac 09 -0 -0 .0 L- 55 t ti 37 8- 3- 00 MA 17 Av ve 17 20 20 RT 7 ai 75 08 08 la 6 PH bl AR e MA CY #5 91 00 01 07 05 30 30 WA 69 No Ac 78 -0 -0 .0 L- 55 t ti 11 8- 3- 00 MA 17 Av ve 22 20 20 RT 9 ai 31 08 08 la 0 PH bl AR e MA CY #5 91 OR 00 06 07 00 12 3 EA 98 No Ac OM 78 -2 -[address] 52 t ti ET 11 7- 3- 00 SI 29 Av ve PARKER 83 20 20 DE ai ZI 01 08 08 la NE 0 PH bl AR e 25 MA CY MG OF TA CY BL NT ET HI AN A 00 05 07 01 60 30 EA 97 No Ac 04 -1 -[address] 98 t ti 50 4- 3- 00 SI 35 Av ve 63 20 20 DE ai 96 08 08 la 5 PH bl AR e MA CY OF CY NT HI AN A HY 00 06 07 00 60 20 EA [address] 55 -1 -[address] 41 t ti OX 50 8- 3- 00 SI 58 Av ve YZ 32 20 20 DE ai IN 30 08 08 la E 4 PH bl PA AR e M MA 25 CY MG OF CY CA NT P HI AN A 00 06 07 00 28 6 EA 98 No Ac 78 -0 -[address] 29 t ti 11 9- 3- 00 SI 68 Av ve 26 20 20 DE ai 20 08 08 la 1 PH bl AR e MA CY OF CY NT HI AN A BU 00 06 07 00 28 5 EA 98 No Ac TA 59 -2 -[address] 51 t ti LB 13 6- 3- 00 SI 19 Av ve -A 36 20 20 DE ai CE 90 08 08 la TA 5 PH bl PR AR e N- MA CA CY FF OF 50 CY -3 NT 25 HI -4 AN 0 A RA 00 01 07 05 60 30 WA 69 No Ac NI 17 -0 -0 .0 L- 55 t ti TI 24 8- 3- 00 MA 18 Av ve DI 35 20 20 RT 0 ai NE 77 08 08 la 0 PH bl 15 AR e 0 MA MG CY TA #5 BL 91 ET 00 06 07 00 28 6 EA 98 No Ac 78 -2 -[address] 52 t ti 11 7- 3- 00 SI 28 Av ve 26 20 20 DE ai 20 08 08 la 1 PH bl AR e MA CY OF CY NT HI AN A BU 00 05 06 03 28 5 EA 97 No Ac TA 59 -1 -[address] 98 t ti LB 13 4- 2- 00 SI 36 Av ve -A 36 20 20 DE ai CE 90 08 08 la TA 5 PH bl PR AR e N- MA CA CY FF OF 50 CY -3 NT 25 HI -4 AN 0 A BU 00 05 06 02 28 5 EA 97 No Ac TA 59 -1 -[address] 98 t ti LB 13 4- 5- 00 SI 36 Av ve -A 36 20 20 DE ai CE 90 08 08 la TA 5 PH bl PR AR e N- MA CA CY FF OF 50 CY -3 NT 25 HI -4 AN 0 A LO 00 04 06 02 60 20 WA 44 No Ac RA 37 -0 -0 .0 L- 67 t ti ZE 82 9- 5- 00 MA 44 Av ve PA 45 20 20 RT 8 ai M 70 08 08 la 1 1 PH bl MG AR e MA TA CY BL ET #5 91 00 05 05 00 60 30 EA 97 No Ac 04 -1 -[address] 98 t ti 50 4- 2- 00 SI 35 Av ve 63 20 20 DE ai 96 08 08 la 5 PH bl AR e MA CY OF CY NT HI AN A RA 00 01 05 04 60 30 WA 69 No Ac NI 17 -0 -2 .0 L- 55 t ti TI 24 8- 2- 00 MA 18 Av ve DI 35 20 20 RT 0 ai NE 77 08 08 la 0 PH bl 15 AR e 0 MA MG CY TA #5 BL 91 ET 00 01 05 04 15 30 WA 69 No Ac 09 -0 -2 .0 L- 55 t ti 37 8- 2- 00 MA 17 Av ve 17 20 20 RT 7 ai 75 08 08 la 6 PH bl AR e MA CY #5 91 BU 00 05 05 00 28 5 EA 97 No Ac TA 59 -1 -[address] 98 t ti LB 13 4- 2- 00 SI 36 Av ve -A 36 20 20 DE ai CE 90 08 08 la TA 5 PH bl PR AR e N- MA CA CY FF OF 50 CY -3 NT 25 HI -4 AN 0 A 00 01 05 04 30 30 WA 69 No Ac 78 -0 -2 .0 L- 55 t ti 11 8- 2- 00 MA 17 Av ve 22 20 20 RT 9 ai 31 08 08 la 0 PH bl AR e MA CY #5 91 OR 00 04 05 00 28 7 WA 69 No Ac OC 78 -2 -0 .0 L- 69 t ti HL 15 9- 8- 00 MA 92 Av ve OR 02 20 20 RT 0 ai PE 10 08 08 la RA 1 PH bl ZI AR e NE MA CY 10 #5 MG 91 TA B LO 00 04 05 01 60 20 WA 44 No Ac RA 37 -0 -0 .0 L- 67 t ti ZE 82 9- 8- 00 MA 44 Av ve PA 45 20 20 RT 8 ai M 70 08 08 la 1 1 PH bl MG AR e MA TA CY BL ET #5 91 00 01 04 03 30 30 WA 69 No Ac 78 -0 -2 .0 L- 55 t ti 11 8- 4- 00 MA 17 Av ve 22 20 20 RT 9 ai 31 08 08 la 0 PH bl AR e MA CY #5 91 63 04 04 00 14 7 WA 69 No Ac 30 -1 -2 .0 L- 67 t ti 40 3- 4- 00 MA 91 Av ve 71 20 20 RT 8 ai 00 08 08 la 1 PH bl AR e MA CY #5 91 ME 00 04 04 00 21 6 WA 69 No Ac TH 60 -1 -2 .0 L- 67 t ti YL 34 3- 4- 00 MA 91 Av ve OR 59 20 20 RT 7 ai ED 31 08 08 la NI 5 PH bl SO AR e LO MA NE CY 4 #5 MG 91 DO SE PK RA 00 01 04 03 60 30 WA 69 No Ac NI 17 -0 -2 .0 L- 55 t ti TI 24 8- 4- 00 MA 18 Av ve DI 35 20 20 RT 0 ai NE 77 08 08 la 0 PH bl 15 AR e 0 MA MG CY TA #5 BL 91 ET LO 00 04 04 00 60 20 WA 44 No Ac RA 37 -0 -2 .0 L- 67 t ti ZE 82 9- 4- 00 MA 44 Av ve PA 45 20 20 RT 8 ai M 70 08 08 la 1 1 PH bl MG AR e MA TA CY BL ET #5 91 00 04 04 00 12 3 WA 69 No Ac 40 -0 -2 .0 L- 67 t ti 62 9- 4- 00 MA 53 Av ve 04 20 20 RT 2 ai 10 08 08 la 1 PH bl AR e MA CY #5 91 00 01 04 03 15 30 WA 69 No Ac 09 -0 -2 .0 L- 55 t ti 37 8- 4- 00 MA 17 Av ve 17 20 20 RT 7 ai 75 08 08 la 6 PH bl AR e MA CY #5 91 RA 00 01 04 02 60 30 WA 69 No Ac NI 17 -0 -1 .0 L- 55 t ti TI 24 8- 7- 00 MA 18 Av ve DI 35 20 20 RT 0 ai NE 77 08 08 la 0 PH bl 15 AR e 0 MA MG CY TA #5 BL 91 ET 00 01 04 02 15 30 WA 69 No Ac 09 -0 -1 .0 L- 55 t ti 37 8- 7- 00 MA 17 Av ve 17 20 20 RT 7 ai 75 08 08 la 6 PH bl AR e MA CY #5 91 00 01 04 02 30 30 WA 69 No Ac 78 -0 -1 .0 L- 55 t ti 11 8- 7- 00 MA 17 Av ve 22 20 20 RT 9 ai 31 08 08 la 0 PH bl AR e MA CY #5 91 LO 00 03 04 00 20 20 WA 88 No Ac RA 78 -2 -1 .0 L- 12 t ti TA 15 4- 0- 00 MA 00 Av ve DI 07 20 20 RT 0 ai NE 70 08 08 la 1 PH bl 10 AR e MA MG CY TA #5 BL 91 ET AM 00 03 04 00 30 10 WA 69 No Ac OX 78 -2 -1 .0 L- 65 t ti IC 12 4- 0- 00 MA 44 Av ve IL 61 20 20 RT 0 ai LI 33 08 08 la N 1 PH bl 50 AR e 0 MA MG CY CA #5 PS 91 UL E TA 00 03 04 00 10 5 EA 97 No Ac PR 00 -0 -[address] 12 t ti FL 40 7- 7- 00 SI 17 Av ve U 80 20 20 DE ai 75 08 08 08 la 5 PH bl MG AR e MA CA CY PS UL OF E CY NT HI AN A 00 01 03 01 15 30 WA 69 No Ac 09 -0 -2 .0 L- 55 t ti 37 8- 6- 00 MA 17 Av ve 17 20 20 RT 7 ai 75 08 08 la 6 PH bl AR e MA CY #5 91 BU 00 01 03 02 30 7 WA 69 No Ac TA 14 -0 -2 .0 L- 55 t ti LB 31 8- 6- 00 MA 17 Av ve -A 78 20 20 RT 8 ai CE 70 08 08 la TA 1 PH bl PR AR e N- MA CA CY FF #5 50 91 -3 25 -4 0 00 01 03 01 30 30 WA 69 No Ac 78 -0 -2 .0 L- 55 t ti 11 8- 6- 00 MA 17 Av ve 22 20 20 RT 9 ai 31 08 08 la 0 PH bl AR e MA CY #5 91 RA 00 01 03 01 60 30 WA 69 No Ac NI 17 -0 -2 .0 L- 55 t ti TI 24 8- 6- 00 MA 18 Av ve DI 35 20 20 RT 0 ai NE 77 08 08 la 0 PH bl 15 AR e 0 MA MG CY TA #5 BL 91 ET 53 02 03 00 40 10 WA 69 No Ac 74 -0 -2 .0 L- 58 t ti 60 4- 6- 00 MA 86 Av ve 13 20 20 RT 4 ai 20 08 08 la 5 PH bl AR e MA CY #5 91 BU 00 01 03 01 30 7 WA 69 No Ac TA 14 -0 -2 .0 L- 55 t ti LB 31 8- 5- 00 MA 17 Av ve -A 78 20 20 RT 8 ai CE 70 08 08 la TA 1 PH bl PR AR e N- MA CA CY FF #5 50 91 -3 25 -4 0 63 01 03 00 21 7 WA 69 No Ac 30 -2 -2 .0 L- 57 t ti 40 2- 5- 00 MA 11 Av ve 65 20 20 RT 4 ai 70 08 08 la 1 PH bl AR e MA CY #5 91 RA 00 01 03 00 60 30 WA 69 No Ac NI 17 -0 -2 .0 L- 55 t ti TI 24 8- 4- 00 MA 18 Av ve DI 35 20 20 RT 0 ai NE 77 08 08 la 0 PH bl 15 AR e 0 MA MG CY TA #5 BL 91 ET 00 01 03 00 15 30 WA 69 No Ac 09 -0 -2 .0 L- 55 t ti 37 8- 4- 00 MA 17 Av ve 17 20 20 RT 7 ai 75 08 08 la 6 PH bl AR e MA CY #5 91 BU 00 01 03 00 30 7 WA 69 No Ac TA 14 -0 -2 .0 L- 55 t ti LB 31 8- 4- 00 MA 17 Av ve -A 78 20 20 RT 8 ai CE 70 08 08 la TA 1 PH bl PR AR e N- MA CA CY FF #5 50 91 -3 25 -4 0 00 01 03 00 30 30 WA 69 No Ac 78 -0 -2 .0 L- 55 t ti 11 8- 4- 00 MA 17 Av ve 22 20 20 RT 9 ai 31 08 08 la 0 PH bl AR e MA CY #5 91 Immunization Name Date Route CVX Reacti Commen Provid Is Given on t er Refuse d IIV3 FIELD No VACCIN 2012 AMB E SPLIT VIRUS 0.5 ML DOSAGE IM USE Procedures Procedure DOS Code Location Performer Comment LIPID [id number] [facility] [id number] [facility] [place] [id number] [facility] THYROXINE 7 [facility] [employer] [facility] [facility] RADIOLOGI 98306 LEE[facility] EXAMINATI INC INC ON KNEE 3 VIEWS SIMPLE 83432 KRISTINA S[facility] REPAIR 7 PHYSICIAN U SCALP/NEC S, PLLC K/AX/GUNNER T/TRUNK 2.5CM/< DUP-SCAN 20988 [facility] XTR VEINS 7 MEDICAL IMAGING UNILATERA ASS L/LIMITED STUDY SMR PRIM 83644 [facility] SRC WET 6 PHYSICIAN PHYSICIAN [place] S GROUP S GROUP NFCT AGT PROF SVCS 44919 ALLERGY MAS MAR ALLG 6 PARTNERS IMMNTX X OF FERNANDEZ W/PRV CO ALLGIC XTRCS NJXS PROF SVCS 76007 ALLERGY MAS MAR ALLG 6 PARTNERS IMMNTX X OF [place] [address] IVONE SANTACRUZ JEFF DX/THER 6 MD MARY, SBST PSC EPIDURAL/ SUBARACH LUMBAR/SA CRAL PROF [facility] 45082 ALLERGY MAS MAR ALLG 6 PARTNERS IMMNTX X OF [place] [address] LEELEE MCKOY TRANSVAGI 6 [facility] [place] [address] ALLERGY MAS MAR ALLG 6 PARTNERS IMMNTX X OF FERNANDEZ W/PRV CO ALLGIC XTRCS NJXS IADNA 29953 [facility] NEISSERIA 6 PHYSICIAN DOMI S GROUP GONORRHOE AE DIRECT PROBE TQ URINE 91659 [facility] 6 PHYSICIAN PHYSICIAN TEST S GROUP S GROUP VISUAL COLOR CMPRSN METHS URINLS 54423 [facility] DIP 6 PHYSICIAN DOMI STICK/TAB S GROUP LET REAGNT NON-AUTO MICRSCPY CULTURE 99851 [facility] CHLAMYDIA 6 PHYSICIAN DOMI ANY S GROUP SOURCE BLOOD 53140 [facility] OCCULT 6 PHYSICIAN DOMI PEROXIDAS S GROUP E ACTV QUAL FECES 1-3 [facility] G0463 LEELEE MCKOY OUTPATIEN 6 [facility] INC INC VISIT ASSESS & MGMT PT PROF [facility] 56401 ALLERGY MAS MAR ALLG 6 PARTNERS IMMNTX X OF FERNANDEZ W/PRV CO ALLGIC XTRCS NJXS PREPJ& 87491 ALLERGY MAS MAR ALLERGEN 6 PARTNERS IMMUNOTHE OF FERNANDEZ RAPY CO 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- 92323 [facility] AIDED 6 MEDICAL DETECTION IMAGING ASS SCREENING MAMMOGRAP HY SCREENING G0202 [place] [address] MEDICAL MAMMOGRAP IMAGING HY YOLANDA ASS INCL CAD WHEN PERFORMD SPACR [id number] IN MED [facility] AUD BAG/RESRV 6 EQUIPMENT OR W/WO INC MASK W/METRD DOSE INHAL MRI 40251 LEELEE MCKOY SPINAL 6 [facility] CANAL INC INC LUMBAR W/O CONTRAST MATERIAL 3D 62111 [facility] ALL RENDERING 6 MEDICAL W/INTERP IMAGING & ASS POSTPROCE SS SUPERVISI ON DRUG TST G0477 LEELEE MCKOY PRESUMP;C 6 [facility] PBL BEING INC INC READ DC OPT OBV ONLY THERAPEUT 61542 LEELEE MCKOY IC PX 1/> 6 [facility] AREAS INC INC EACH 15 MIN EXERCISES APPL 57810 LEELEE MONTEMAYORON MODALITY 6 [facility] 1/> AREAS INC INC ELEC STIMJ UNATTENDE D APPLICATI 39075 LEELEE MCKOY ON 6 [facility] MODALITY INC INC 1/> AREAS HOT/COLD PACKS UNCLASSIF J3490 LEELEE MCKOY IED DRUGS 6 [facility] INC INC APPLICATI 20685 LEELEE LEELEE ON 6 [facility] MODALITY INC INC 1/> AREAS HOT/COLD PACKS APPL 12184 LEELEE LEELEE MODALITY 6 [facility] 1/> AREAS INC INC ELEC STIMJ UNATTENDE D APPL 40633 LEELEE LEELEE MODALITY 6 [facility] 1/> AREAS INC INC IONTOPHOR ESIS EA 15 MIN THERAPEUT 18513 [facility] MCK[facility] IC PX 1/> 6 [facility] AREAS INC INC EACH 15 MIN EXERCISES PHYSICAL 64078 [facility] THERAPY 6 [facility] EVALUATIO INC INC N RADEX 54290 [facility] [place] JUDY ELBOW 6 RADIOLOGY RHO COMPLETE MINIMUM 3 VIEWS RADEX 00629 [facility] [place] SCALF SADIQ ELBOW 6 RADIOLOGY COMPLETE MINIMUM 3 VIEWS RADEX 88205 [facility] [place]ALF SADIQ FOREARM 2 6 RADIOLOGY VIEWS NEEDLE 68113 [facility] EMG EA 6 N EXTREMTY NEUROLOGY W/PARASPI NL AREA COMPLETE NERVE 55351 [facility] CONDUCTIO 6 N N STUDIES NEUROLOGY 5-6 STUDIES CULTURE 96531 [facility] BACTERIAL 5 [facility] INC INC QUANTTATI VE COLONY COUNT URINE COMPREHEN 93751 [facility] SIVE 5 [facility] [place] [address] LEELEE MCKOY LIPASE 5 [place] [address] LEELEE MCKOY MAGNESIUM 5 [facility] INC INC URNLS DIP 10481 [facility] STICK/TAB INC INC LET REAGENT AUTO MICROSCOP Y BLOOD 89548 L[facility] LEELEE COUNT 5 [facility] COMPLETE INC INC AUTO&AUTO DIFRNTL WBC E-STIM G0283 L[facility] LEELEE 1/> AREAS 5 [facility] OTH THAN INC INC WND CARE PART TX PLAN THERAPEUT 03778 LEELEE LEELEE IC PX 1/> 5 [facility] INC INC EACH 15 MIN EXERCISES APPLICATI 42081 [facility] ON 5 [facility] MODALITY INC INC 1/> AREAS HOT/COLD PACKS APPLICATI 39960 L[facility] LEELEE ON 5 [facility] MODALITY INC INC 1/> AREAS HOT/COLD PACKS THERAPEUT 23664 LEELEE LEELEE IC PX 1/> 5 [facility] AREAS INC INC EACH 15 MIN EXERCISES E-STIM G0283 LEELEE LEELEE 1/> AREAS 5 [facility] OTH THAN INC INC WND CARE PART TX PLAN PHYSICAL 08848 [facility] M[facility]OY THERAPY 5 [facility] EVALUATIO INC INC N SHOULDER L3650 [facility] 5 TECHNOLOG TECHNOLOG FIG 8 IES INC IES INC ABDUCT RESTRAINE R PREFAB RADEX 11421 [place] [place] [facility] EL[place] 5 MEDICAL ENEIDA COMPLETE IMAGING MINIMUM 3 ASS VIEWS INJ J0702 A C KILPELA BETAMETHA 5 RUIZ BOUDREAUX SONE PSC ACETATE & PHOSPHATE 3 MG INJECTION J1885 A C KILPELA 5 RUIZ BOUDREAUX KETOROLAC PSC TROMETHAM INE PER 15 MG THERAPEUT 99533 A C KILPELA IC 5 RUIZ BOUDREAUX PROPHYLAC PSC TIC/DX INJECTION SUBQ/IM URINLS 37543 A C KEMIPELA DIP 5 RUIZ BOUDREAUX STICK/TAB PSC LET REAGNT NON-AUTO MICRSCPY CULTURE 03294 [facility] BCT 5 DIAGNOSTI DIAGNOSTI ISOL&PRSM CS CS PTV ID ISOLATE EA URINE CULTURE 23134 [facility] BACTERIAL 5 DIAGNOSTI DIAGNOSTI CS CS QUANTTATI VE COLONY COUNT URINE INJECTION J1885 [facility] FRYMAN 5 PHYSICIAN EUG KETOROLAC S GROUP TROMETHAM INE PER 15 MG THERAPEUT 34362 [facility] FRYMAN IC 5 PHYSICIAN EUG PROPHYLAC S GROUP TIC/DX INJECTION SUBQ/IM IAADIADOO 90882 [facility] FRYMAN 4 PHYSICIAN EUG INFLUENZA S GROUP COMPREHEN 09947 [facility] SIVE 4 [facility] METABOLIC INC INC PANEL BLOOD 59953 [facility] MCKOY COUNT 4 [facility] COMPLETE INC INC AUTO&AUTO DIFRNTL WBC APPL 32120 L[facility] MCKOY MODALITY 4 [facility] 1/> AREAS INC INC ELEC STIMJ UNATTENDE D APPL 46682 L[facility] MCKOY MODALITY 4 [facility] 1/> AREAS INC INC ULTRASOUN D EA 15 MIN APPLICATI 43009 [facility] ON 4 [facility] MODALITY INC INC 1/> AREAS HOT/COLD PACKS INJECTION J2550 [facility] KEVAN 4 PHYSICIAN LACEY PROMETHAZ S GROUP INE HCL UP TO 50 MG THERAPEUT 11418 [facility] KEVAN IC 4 PHYSICIAN LACEY PROPHYLAC S GROUP TIC/DX INJECTION SUBQ/IM THERAPEUT 87425 LEELEE MCKOY IC PX 1/> 4 [facility] AREAS INC INC EACH 15 MIN EXERCISES APPL 33209 L[facility] MCKOY MODALITY 4 [facility] 1/> AREAS INC INC ELEC STIMJ UNATTENDE D APPL 87680 [facility] MCKOY MODALITY 4 [facility] 1/> AREAS INC INC ULTRASOUN D EA 15 MIN APPLICATI 81984 L[facility] MCKOY ON 4 [facility] MODALITY INC INC 1/> AREAS HOT/COLD PACKS APPLICATI 74298 [facility] MCKOY ON 4 [facility] MODALITY INC INC 1/> AREAS HOT/COLD PACKS APPL 30979 L[facility] MCKOY MODALITY 4 [facility] 1/> AREAS INC INC ULTRASOUN D EA 15 MIN THERAPEUT 03063 LEE[facility]E MCKOY IC PX 1/> 4 [facility] AREAS INC INC EACH 15 MIN EXERCISES APPL 85734 [facility] MCKOY MODALITY 4 [facility] 1/> AREAS INC INC ELEC STIMJ UNATTENDE D APPL 93528 [facility] MCKOY MODALITY 4 [facility] 1/> AREAS INC INC ELEC STIMJ UNATTENDE D THERAPEUT 75980 LEE[facility]E MCKOY IC PX 1/> 4 [facility] AREAS INC INC EACH 15 MIN EXERCISES APPL 12647 L[facility] MCKOY MODALITY 4 [facility] 1/> AREAS INC INC ULTRASOUN D EA 15 MIN APPLICATI 35980 [facility] MCKOY ON 4 [facility] MODALITY INC INC 1/> AREAS HOT/COLD PACKS APPLICATI 66399 L[facility] MCKOY ON 4 [facility] MODALITY INC INC 1/> AREAS HOT/COLD PACKS APPL 44596 L[facility] MCKOY MODALITY 4 [facility] 1/> AREAS INC INC ULTRASOUN D EA 15 MIN THERAPEUT 83068 LEE[facility] MCKOY IC PX 1/> 4 [facility] AREAS INC INC EACH 15 MIN EXERCISES APPL 29694 LEE[facility] MCKOY MODALITY 4 [facility] 1/> AREAS INC INC ELEC STIMJ UNATTENDE D APPL 65217 [facility] MCKOY MODALITY 4 [facility] 1/> AREAS INC INC ELEC STIMJ UNATTENDE D THERAPEUT 78877 LEE[facility] MCKOY IC PX 1/> 4 [facility] AREAS INC INC EACH 15 MIN EXERCISES APPL 85251 LEE[facility] MCKOY MODALITY 4 [facility] 1/> AREAS INC INC ULTRASOUN D EA 15 MIN APPLICATI 56501 L[facility] MCKOY ON 4 [facility] MODALITY INC INC 1/> AREAS HOT/COLD PACKS APPLICATI 14968 LEE[facility]E MCKOY ON 4 [facility] MODALITY INC INC 1/> AREAS HOT/COLD PACKS APPL 90651 LEE[facility]E MCKOY MODALITY 4 [facility] 1/> AREAS INC INC ULTRASOUN D EA 15 MIN THERAPEUT 26482 LEE[facility]E MCKOY IC PX 1/> 4 [facility] AREAS INC INC EACH 15 MIN EXERCISES APPL 26717 LEE[facility] MCKOY MODALITY 4 [facility] 1/> AREAS INC INC ELEC STIMJ UNATTENDE D APPL 36849 LEE[facility] MCKOY MODALITY 4 [facility] 1/> AREAS INC INC ELEC STIMJ UNATTENDE D THERAPEUT 58818 LEE[facility]E MCKOY IC PX 1/> 4 [facility] AREAS INC INC EACH 15 MIN EXERCISES APPLICATI 77501 LEELEE MCKOY ON 4 [facility] MODALITY INC INC 1/> AREAS HOT/COLD PACKS PHYSICAL 55986 LEELEE MCKOY THERAPY 4 [facility] EVALUATIO INC INC N RADEX 85866 [facility] SPINE 4 MEDICAL MARCELLE LUMBOSACR IMAGING AL ASS MINIMUM 4 VIEWS THERAPEUT 21372 A Timi MENENDEZ IC 4 RUIZ BOUDREAUX PROPHYLAC PSC TIC/DX INJECTION SUBQ/IM URINLS 77710 A Timi MENENDEZ DIP 4 RUIZ GARRETT JEZuri STICK/TAB PSC LET REAGNT NON-AUTO MICRSCPY CULTURE 50894 [facility] BACTERIAL 4 DIAGNOSTI DIAGNOSTI CS QUANTTATI VE COLONY COUNT URINE INJECTION J2550 [facility] KEVAN 4 PHYSICIAN LACEY PROMETHAZ S GROUP INE HCL UP TO 50 MG INJECTION J1885 [facility] KEVAN 4 PHYSICIAN LACEY KETOROLAC S GROUP TROMETHAM INE PER 15 MG INJECTION J1200 [facility] KEVAN 4 PHYSICIAN LACEY DIPHENHYD S GROUP RAMINE HCL UP TO 50 MG THERAPEUT 23988 [facility] KEVAN IC 4 PHYSICIAN LACEY PROPHYLAC S GROUP TIC/DX INJECTION SUBQ/IM BLOOD 02900 RUIZ MELCHOR A COUNT 4 COMPLETE AUTO&AUTO DIFRNTL WBC BLOOD 40483 LEE[facility] M[facility]OY OCCULT 4 [facility] PEROXIDAS INC INC E ACTV QUAL FECES 1-3 SPEC SMR PRIM 52189 LEELEE LEELEE SRC 4 [facility] GRAM/GIEM INC INC SA STAIN BCT FUNGI/LIAM L GLUCOSE 86989 FIELD AMB FIELD AMB QUANTITAT 4 GAETANO [place] [address] [facility] THYROID 4 MED CTR, MED CTR, STIMULATI ATTN: ATTN: NG EVA DENMarco Antonio HORMONE TSH COMPREHEN 34981 [facility] SIVE 4 MED CTR, MED CTR, METABOLIC ATTN: ATTN: PANEL DENE DENE BLOOD 00089 [facility] COUNT 4 MED CTR, MED CTR, COMPLETE ATTN: ATTN: AUTO&AUTO DENE DENE DIFRNTL WBC INJECTION J1885 [facility] CHELO 4 [facility] CONRAD KETOROLAC TROMETHAM INE PER 15 MG INJECTION J1200 [facility] CHELO 4 CONRAD CONRAD DIPHENHYD RAMINE HCL UP TO 50 MG THERAPEUT 64641 CHELO CHELO IC 4 CONRAD CONRAD PROPHYLAC TIC/DX INJECTION SUBQ/IM INJECTION J2550 CHELO CHELO 4 CONRAD CONRAD PROMETHAZ INE HCL UP TO 50 MG INJECTION J1030 KILPELA KILPELA 4 JEA JEA METHYLPRE DNISOLONE ACETATE 40 MG INJ J0702 KILPELA KILPELA BETAMETHA 4 JEA JEA SONE ACETATE & PHOSPHATE 3 MG THERAPEUT 17954 KILPELA KILPELA IC 4 JEA JEA PROPHYLAC TIC/DX INJECTION SUBQ/IM INJECTION J1030 KILPELA KILPELA 4 JEA JEA METHYLPRE DNISOLONE ACETATE 40 MG INJ J0702 KILPELA KILPELA BETAMETHA 4 JEA JEA SONE ACETATE & PHOSPHATE 3 MG THERAPEUT 68157 KILPELA KILPELA IC 4 JEA JEA PROPHYLAC TIC/DX INJECTION SUBQ/IM THERAPEUT 26751 MARTHA THOMAS SEFERINO IC 4 PROPHYLAC TIC/DX INJECTION SUBQ/IM INJECTION J2550 MARTHA GENTILE 4 PROMETHAZ INE HCL UP TO 50 MG INJECTION J1885 MARTHA GENTILE MARTHA SEFERINO 4 KETOROLAC TROMETHAM INE PER 15 MG NONINVASI 53444 FIELD AMB FIELD AMB VE 4 EAR/PULSE OXIMETRY SINGLE DETER THERAPEUT 47445 FIELD AMB FIELD AMB IC 4 PROPHYLAC TIC/DX INJECTION SUBQ/IM INJECTION J1885 FIELD AMB FIELD AMB 4 KETOROLAC TROMETHAM INE PER 15 MG INJECTION J1885 MARTHA GENTILE MARTHA SEFERINO 3 KETOROLAC TROMETHAM INE PER 15 MG THERAPEUT 46689 MARTHA THOMAS SEFERINO IC 3 PROPHYLAC TIC/DX INJECTION SUBQ/IM INJECTION J1040 MARTHA THOMAS SEFERINO 3 METHYLPRE DNISOLONE ACETATE 80 MG IIV3 51357 FIELD AMB FIELD AMB VACCINE 3 SPLIT VIRUS 0.5 ML DOSAGE IM USE THERAPEUT 02801 FIELD AMB FIELD AMB IC 3 PROPHYLAC TIC/DX INJECTION SUBQ/IM INJ J0702 FIELD AMB FIELD AMB BETAMETHA 3 SONE ACETATE & PHOSPHATE 3 MG IM ADM 60591 FIELD AMB FIELD AMB PRQ ID 3 SUBQ/IM NJ[place] 1 [place] [address] NADIRA WADDELL PAT SURG 3 PATHOLOGY GROSS&LACEY ROSCOPIC EXAM ANES 97091 NATALIO LANCE UPPER GI 3 CONRAD CONRAD ENDOSCOPY PROXIMAL TO DUODENUM SPECIAL 16398 NADIRA WADDELL PAT STAIN 3 GROUP 1 MICROORGA NISMS I&R SPCL STN 33373 NADIRA ARUN NADIRA PAT 2 I&R 3 EXCPT MICROORG/ ENZYME/IM CYT EGD 40221 [place] ROJAS STEVE TRANSORAL 3 MEDICAL BIOPSY SERV SINGLE/MU FOUNDATIO LTIPLE N CUL 67759 LEELEE MCKOY PRSMPTV 3 [facility] PTHGNC INC INC ORGANISMS SCR DNS CHART THERAPEUT 35514 FIELD AMB FIELD AMB IC 3 PROPHYLAC TIC/DX INJECTION SUBQ/IM INJECTION J1885 FIELD AMB FIELD AMB 3 KETOROLAC TROMETHAM INE PER 15 MG BLOOD 36773 A C RUIZ A COUNT 3 RUIZ GARRETT COMPLETE PSC AUTO&AUTO DIFRNTL WBC COLLECTIO 94963 Zuri Keating N VENOUS 3 RUIZ GARRETT BLOOD PSC VENIPUNCT URE SMR PRIM 91171 [facility] SRC 3 [facility] GRAM/GIEM INC INC SA STAIN BCT FUNGI/LIAM L OVA&JULIO C 55576 LEELEE MCKOY ITES 3 [facility] DIRECT INC INC SMEARS CONC[place]TRA [place]ION & [place] [address] LEELEE MCKOY GIARDIA 3 [place] [address] LEELEE MCKOY CLOSTRIDI 3 [facility] [place] [address] LEELEE MCKOY LIPASE 3 [facility] INC INC CUL BACT 70214 LEELEE MCKOY STOOL 3 [facility] AEROBIC INC INC ISOL SALMONELL A&SHIGELL COMPREHEN 63070 LEELEE MCKOY SIVE 3 [facility] [place] [address] LEELEE MCKOY AMYLASE 3 [place] [address] LEELEE MCKOY GAMMAGLOB 3 [facility] ULIN IGA INC INC IGD IGG IGM EACH FLUORESCE 57692 LEELEE MCKOY NT 3 [facility] NONNFCT INC INC AGT ANTB TITER EA ANTIBODY BLOOD 82671 LEELEE MCKOY COUNT 3 [facility] COMPLETE INC INC AUTO&AUTO DIFRNTL WBC THERAPEUT 64994 FAMILY FAMILY IC 3 CARE CARE PROPHYLAC ASSOCIATE ASSOCIATE TIC/DX S S INJECTION SUBQ/IM BLOOD 61028 FAMILY FAMILY COUNT 3 CARE CARE COMPLETE ASSOCIATE ASSOCIATE AUTO&AUTO S S DIFRNTL WBC INJECTION J2550 FAMILY FAMILY 3 CARE CARE PROMETHAZ ASSOCIATE ASSOCIATE INE HCL S S UP TO 50 MG ARTHROCEN 08277 PETTEY PETTEY TESIS 3 JAM JAM ASPIR&/IN J MAJOR JT/BURSA W/O US INJ J0702 PETTEY PETTEY BETAMETHA 3 JAM JAM SONE ACETATE & PHOSPHATE 3 MG RADIOLOGI 10929 ABEL KITCHENS C 3 DON DON EXAMINATI ON KNEE 1/2 VIEWS HEMOGLOBI 20447 COMBINED COMBINED N 3 PHYSICIAN PHYSICIAN GLYCOSYLA S LA S LA CLAIRE A1C LIPID 45284 COMBINED COMBINED PANEL 3 PHYSICIAN PHYSICIAN S LA S LA COMPREHEN 99363 COMBINED COMBINED SIVE 3 PHYSICIAN PHYSICIAN METABOLIC S LA S LA PANEL ARTHROCEN 26818 PETTEY PETTEY TESIS 3 JAM JAM ASPIR&/IN J MAJOR JT/BURSA W/O US INJ J0702 PETTEY PETTEY BETAMETHA 3 JAM JAM SONE ACETATE & PHOSPHATE 3 MG THERAPEUT 74437 LEELEE MCKOY IC PX 1/> 3 [facility] AREAS INC INC EACH 15 MIN EXERCISES THERAPEUT 73001 LEELEE MONTEMAYORON IC PX 1/> 3 [facility] AREAS INC INC EACH 15 MIN EXERCISES PHYSICAL 44333 LEELEE MCKOY THERAPY 3 [facility] EVALUATIO INC INC N ARTHROCEN 50223 PETTEY PETTEY TESIS 3 JAM JAM ASPIR&/IN J MAJOR JT/BURSA W/O US INJ J0702 PETTEY PETTEY BETAMETHA 3 JAM JAM SONE ACETATE & PHOSPHATE 3 MG RADEX 14256 IZAIAH IZAIAH SHOULDER 3 MARCELLE MARCELEL COMPLETE MINIMUM 2 VIEWS IAADIADOO 70168 ABEL KITCHENS 3 DON DON INFLUENZA INJECTION J2405 LEE[facility]E MONTEMAYORON 2 [facility] ONDANSETR INC INC ON HCL PER 1 MG COMPREHEN 83860 [facility] M[facility] SIVE 2 [facility] [place] [address] LEELEE MCKOY AMYLASE 2 [place] [address] LEELEE MCK[facility] LIPASE 2 [facility] INC INC URINE 97914 [facility] TEST [place] [address] LEELEE MCKOY INFUSION 2 [facility] THERAPY/P INC INC ROPHYLAXI S /DX 1ST TO 1 HR BLOOD 66066 [facility] M[facility] COUNT 2 [facility] COMPLETE INC INC AUTO&AUTO DIFRNTL WBC THERAPEUT 17939 [facility] IC 2 [facility] INJECTION INC INC IV PUSH EACH NEW DRUG CHEMODENE 00610 [facility] RVATION 2 DOMI DOMI NECK MUSCLE BOTULINUM J0585 [facility] TOXIN 2 DOMI DOMI TYPE A PER UNIT CHEMODNRV 99881 [facility] TJ MUSC 2 DOMI DOMI MUSC INNERVATE D FACIAL NRV UNIL IAADIADOO 05709 ROMAN ROMAN 2 DON DON STREPTOCO CCUS GROUP A IAADIADOO 27439 ROMAN ROMAN 2 DON DON STREPTOCO CCUS GROUP A IAADIADOO 43260 ROMAN ROMAN 2 DON DON STREPTOCO CCUS GROUP A URNLS DIP 29680 ROMAN ROMAN 2 DON DON STICK/TAB LET RGNT NON-AUTO W/O MICRSCP URNLS DIP 44616 ROMAN ROMAN 2 DON DON STICK/TAB LET RGNT NON-AUTO W/O MICRSCP URNLS DIP 33619 ROMAN ROMAN 2 DON DON STICK/TAB LET RGNT NON-AUTO W/O MICRSCP URNLS DIP 08631 ROMAN ROMAN 2 DON DON STICK/TAB LET RGNT NON-AUTO W/O MICRSCP URNLS DIP 47862 ROMAN ROMAN 2 DON DON STICK/TAB LET RGNT NON-AUTO W/O MICRSCP URNLS DIP 76021 ROMAN ROMAN 2 DON DON STICK/TAB LET RGNT NON-AUTO W/O MICRSCP URNLS DIP 88479 [facility] M[facility]OY 2 [facility] STICK/TAB INC INC LET REAGENT AUTO MICROSCOP Y HEMOGLOBI 98223 COMBINED COMBINED N 2 PHYSICIAN PHYSICIAN CARLOS ENRIQUE STOREY S LA CLAIRE A1C CHEMODENE 31453 [facility] RVATION 2 DOMI DOMI NECK MUSCLE CHEMODENE 19262 [facility] RVATION 2 DOMI DOMI ECCRINE GLANDS OTH AREA PER DAY CHEMODNRV 02769 [facility] TJ MUSC 2 DOMI DOMI MUSC INNERVATE D FACIAL NRV UNIL THERAPEUT 16895 LEE[facility] MCKOY IC 2 [facility] PROPHYLAC INC INC TIC/DX INJECTION SUBQ/[place] [address] LEELEE MCOKY LIPASE 2 [facility] INC INC COMPREHEN 93337 LEELEE MCKOY SIVE 2 [facility] [place] [address] LEELEE MCKOY AMYLASE 2 [facility] [address] LEELEE LABONE INFUSION 2 [facility] 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 THERAPY/P INC ROPHYLAXI S /DX 1ST TO 1 HR BLOOD 67643 LEELEE MCKOY COUNT 2 [facility] COMPLETE INC INC AUTO&AUTO DIFRNTL WBC THERAPEUT 73536 LEELEE MCKOY IC 2 [facility] INJECTION INC INC IV PUSH EACH NEW DRUG SCREENING G0202 [place] IZAIAH 2 MEDICAL MARCELLE MAMMOGRAP IMAGING HY YOLANDA ASS INCL CAD WHEN PERFORMD COMPUTER- 09576 [place] IZAIAH AIDED 2 MEDICAL MARCELLE DETECTION IMAGING ASS SCREENING MAMMOGRAP HY BLOOD 71535 ABEL ROMAN OCCULT 2 DON DON PEROXIDAS E ACTV QUAL FECES 1 DETER CYTP 93405 [facility] SLIDES 2 DIAGNOSTI DIAGNOSTI CERV/VAG CS CS MNL SCRN PHYSICIAN SUPV THERAPEUT 80523 LEE[facility]E MCKOY IC 2 [facility] PROPHYLAC INC INC TIC/DX INJECTION SUBQ/IM URNLS DIP 69998 ROMAN ROMAN 2 DON DON STICK/TAB LET RGNT NON-AUTO W/O MICRSCP FIBRIN 17138 LEELEE MCKOY DGRADJ 2 [facility] PRODUCTS INC INC D-DIMER QUAL/SEMI [place] THERAPEUT 71929 LEELEE MCKOY IC 2 [facility] PROPHYLAC INC INC TIC/DX INJECTION SUBQ/IM THERAPEUT 33710 LEE[facility]E MCKOY IC 2 [facility] PROPHYLAC INC INC TIC/DX INJECTION SUBQ/IM BASIC 20844 LEELEE MCKOY METABOLIC 2 [facility] PANEL INC INC CALCIUM TOTAL URNLS DIP 88317 LEE[facility]E MCKOY 2 [facility] STICK/TAB INC INC LET REAGENT AUTO MICROSCOP Y BLOOD 03894 LEE[facility]E MCKOY COUNT 2 [facility] COMPLETE INC INC AUTO&AUTO DIFRNTL WBC THERAPEUT 58240 LEE[facility]E MCKOY IC 2 [facility] PROPHYLAC INC INC TIC/[place] INJECTION SUBQ/[place] [address] LEELEE MCKOY INFUSION 1 [facility] THERAPY/P INC INC ROPHYLAXI S /DX 1ST TO 1 HR URNLS DIP 77102 L[facility] MCKOY 1 [facility] STICK/TAB INC INC LET REAGENT AUTO MICROSCOP Y BLOOD 54664 LEE[facility]E MCKOY COUNT 1 [facility] COMPLETE INC INC AUTO&AUTO DIFRNTL WBC BASIC 20282 LEELEE MCKOY METABOLIC 1 [facility] PANEL INC INC CALCIUM TOTAL OPHTH 38937 SALLY CASILLAS OLAYINKA MEDICAL 1 VISION XM&EVAL COMPRE NEW PT 1/> VST COMPUTERI 66685 SALLY CASILLAS OLAYINKA ZED 1 VISION OPHTHALMI C IMAGING OPTIC NERVE SEDIMENTA 19672 LEELEE LEELEE TION RATE 1 [facility] RBC INC INC NON-AUTOM ATED 3D 17752 LINNETTENury IZAIAH RENDERING 1 MEDICAL MARCELLE W/INTERP IMAGING & [place] [address] LINNETTENury IZAIAH HEAD/BRAI 1 MEDICAL MARCELLE N W/O IMAGING CONTRAST ASS MATERIAL BLOOD 08342 LEE[facility]E MCKOY COUNT 1 [facility] COMPLETE INC INC AUTO&AUTO DIFRNTL WBC COMPREHEN 40141 LEELEE MCKOY SIVE 1 [facility] METABOLIC INC INC PANEL URNLS DIP 42756 LEE[facility]E MCKOY 1 [facility] STICK/TAB INC INC LET REAGENT AUTO MICROSCOP Y URNLS DIP 25490 L[facility]E MCKOY 1 [facility] STICK/TAB INC INC LET REAGENT AUTO MICROSCOP Y BLOOD 34316 LEE[facility]E MCKOY COUNT 1 [facility] COMPLETE INC INC AUTO&[place] [address] LEELEEJOSEFINA MCKOY LIPASE 1 [facility] INC INC COMPREHEN 03444 LEELEE MCKOY SIVE 1 [facility] [place] [address] LEELEE MCKOY AMYLASE 1 [facility] INC INC COMPREHEN 27698 LEELEE MCKOY SIVE 1 [facility] METABOLIC INC INC PANEL URNLS DIP 14743 LEE[facility]E MCKOY 1 [facility] STICK/TAB INC INC LET REAGENT AUTO MICROSCOP Y BLOOD 18220 LEELEEJOSEFINA MCKOY COUNT 1 [facility] COMPLETE INC INC AUTO&AUTO DIFRNTL WBC APPLICATI 75334 LEELEE MCKOY ON 1 [facility] MODALITY INC INC 1/> AREAS HOT/COLD PACKS PHYSICAL 22565 LEELEE MCKOY THERAPY 1 [facility] EVALUATIO INC INC N THERAPEUT 82356 LEELEE MCKOY IC PX 1/> 1 [facility] AREAS INC INC EACH 15 MIN EXERCISES APPL 06865 LEELEE MCKOY MODALITY 1 [facility] 1/> AREAS INC INC ELEC STIMJ UNATTENDE D RADEX 00888 LEELEE MCKOY SPINE 1 [facility] CERVICAL INC INC 6 OR MORE VIEWS RADEX 54358 [place] IZAIAH SPINE 1 MEDICAL MARCELLE CERVICAL IMAGING 4 OR 5 ASS VIEWS IAADIADOO 47775 ROMAN ROMAN 0 [place] [address] [place] IZAIA[place] HEAD/BRAI 0 MEDICAL MARCELLE N W/O IMAGING CONTRAST ASS MATERIAL 3D 39810 LEELEE MCKOY RENDERING 0 [facility] W/INTERP INC INC & POSTPROCE SS SUPERVISI ON OBSERVATI 27805 ABEL ROMAN ON CARE 0 DON DON DISCHARGE MANAGEMEN T INITIAL 67734 SNEHAL ROJAS STEVE INPATIENT 0 MEDICAL CONSULT SERV NEW/ESTAB FOUNDATIO PT 55 MIN RADEX ABD 126[address] [place] [facility] COMPL 0 MEDICAL JOSIE AQT ABD IMAGING W/S/E/D ASS VIEWS 1 VIEW CH INITIAL 97092 ABEL ROMAN OBSERVATI 0 DON DON ON CARE/DAY 50 MINUTES URNLS DIP 63732 [facility] STICK/TAB INC INC LET REAGENT AUTO MICROSCOP Y BLOOD 77417 [facility] COUNT 0 [facility] COMPLETE INC INC AUTO&AUTO DIFRNTL WBC URINE 97263 [facility] TEST INC INC VISUAL COLOR CMPRSN METHS RADEX ABD 39290 [facility] COMPL 0 MEDICAL JOSIE AQT ABD IMAGING W/S/E/D ASS VIEWS 1 [place] [address] [facility] LIPASE 0 [facility] INC INC COMPREHEN 18823 L[facility]CK[facility] SIVE 0 [facility] [place] [address] LEELEE MCKOY AMYLASE 0 [place] [address] LEELEE MCK[facility] INFUSION 0 [facility] THERAPY/P INC INC ROPHYLAXI S /DX 1ST TO 1 HR INCISION 19581 JOSE MARIA ÁLVAREZ & 0 EMERGENCY III JESSEE DRAINAGE SERVICES ABSCESS COMPLICAT ED/MULTIP LE SUSCEPTIB 90060 [facility] MCK[facility] LTY STDY 0 [facility] ANTIMICRB INC INC IAL MICRO/AGA R DILUTJ CUL BACT 31727 [facility] MCK[facility] XCPT 0 [facility] URINE INC INC BLOOD/STO OL AEROBIC ISOL CUL BACT 78369 LEE[facility] MCK[facility] AEROBIC 0 [facility] ADDL INC INC METHS DEFINITIV E EA ISOL OTH 8604 LEE[facility] MCKOY INCISION 0 [facility] W/DRAINAG INC INC E SKIN&SUBC UTANEOUS TISSUE MRI 71115 [facility] SPINAL 0 [facility] MARCELLE CANAL LUMBAR W/O CONTRAST MATERIAL 3D 32703 [facility] RENDERING 0 [facility] MARCELLE W/INTERP & [place] [address] GAVIN IZAIAH, RETROPERI 0 MEDICAL [place] TONEAL IMAGING REAL TIME [place]OCI[place] [address] LEELEEJOSEFINA MONTEMAYORON INFUSION 0 [facility] THERAPY/P INC INC ROPHYLAXI S /DX 1ST TO 1 HR INCISION 35639 JOSE MARIA ÁLVAREZ & 0 EMERGENCY III, DRAINAGE SERVICES ANGELIQUE ABSCESS COMPLICAT ASSOCIATE ED/MULTIP S LE SUSCEPTIB 42497 LEELEE LEELEE LTY STDY [address] [facility] ANTIMICRB INC INC IAL MICRO/AGA R DILUTJ BLOOD 15610 LEELEE MCKOY COUNT 0 [facility] COMPLETE INC INC AUTO&AUTO DIFRNTL WBC URNLS DIP 13758 [facility] MCKOY 0 [facility] STICK/TAB INC INC LET REAGENT AUTO MICROSCOP Y CUL BACT 53652 LEELEE MONTEMAYORON AEROBIC 0 [facility] ADDL INC INC METHS DEFINITIV E EA ISOL CUL BACT 67350 LEELEE MCKOY XCPT 0 [facility] URINE INC INC BLOOD/STO OL AEROBIC ISOL 3D 18827 GAVIN IZAIAH, RENDERING 0 MEDICAL [facility] IMAGING W/INTERP& ASSOCIATE POSTPROC S DIFF WORK STATION CT PELVIS 11174 GAVIN IZAIAH, W/O 0 MEDICAL [place] CONTRAST [place] [address] LEELEE MCKOY LIPASE 0 [facility] INC INC COMPREHEN 13746 LEELEE MCKOY SIVE 0 [facility] [place] [address] LEELEE MCKOY AMYLASE 0 [facility] [place] [address] GAVIN IZAIAH, ABDOMEN 0 MEDICAL [place] W/O IMAGING CONTRAST ASSOCIATE MATERIAL S OTH 8604 LEELEE MCKOY INCISION 0 [facility] W/DRAINAG INC INC E SKIN&SUBC UTANEOUS TISSUE RADEX 01018 ROMAN, ROMAN, SPINE 0 DON R DON R LUMBOSACR AL MINIM[place] 4 [place] [address] LEELEE MCKOY STREPTOCO 0 [facility] [place] [address] LEELEE MCKOY INFUSION 0 [facility] THERAPY/P INC INC ROPHYLAXI S /DX 1ST TO 1 HR URNLS DIP 95768 [facility] MCKOY 0 [facility] STICK/TAB INC INC LET REAGENT AUTO MICROSCOP Y CULTURE 72932 LEELEE MCKOY BACTERIAL 0 [facility] INC INC QUANTTATI VE COLONY COUNT URINE BLOOD 15219 LEELEE MCKOY COUNT 9 [facility] COMPLETE INC INC AUTO&AUTO DIFRNTL WBC URNLS DIP 38702 [facility] MCKOY 9 [facility] STICK/TAB INC INC LET REAGENT AUTO MICROSCOP Y COMPREHEN 59988 LEELEE MCKOY SIVE 9 [facility] METABOLIC INC INC PANEL IAADI 46057 LEELEE MCKOY INFFLUENZ 9 [facility] A A VIRUS INC INC IAADI 87318 LEELEE MCKOY INFLUENZA 9 [facility] B VIRUS INC INC RADEX 15602 LEELEE MCKOY HAND 9 [facility] MINIMUM 3 INC INC VIEWS 3D 05287 LEELEE MCKOY RENDERING 9 [facility] W/INTERP INC INC & [place] [address] GAVIN BLISS, HEAD/BRAI 9 MEDICAL [facility] N W/O IMAGING CONTRAST ASSOCIATE MATERIAL S URNLS DIP 29056 L[facility]E MCKOY 9 [facility] STICK/TAB [place] [address] [facility] 9 [facility] THERAPY/P INC INC ROPHYLAXI S /DX 1ST TO 1 HR RHYTHM 34763 [facility] MCK[facility] ECG 1-3 9 [facility] LEADS INC INC TRACING ONLY W/O I&R URNLS DIP 08654 [facility]CKOY 9 [facility] STICK/TAB INC INC LET REAGENT AUTO MICROSCOP Y ECG 91816 LEELEE FREGOSOSON, ROUTINE 9 [facility] W/LEAST PROF SERV 12 LDS I&R ONLY BLOOD 46030 [facility] COUNT 9 [facility] COMPLETE INC INC AUTO&AUTO DIFRNTL WBC ECG 95379 L[facility]LEE LEELEE ROUTINE 9 [facility] ECG INC INC W/LEAST 12 LDS TRCG ONLY W/O I&R COMPREHEN 38992 LEELEEJOSEFINA MCKOY SIVE 9 [facility] METABOLIC INC INC PANEL CULTURE 18645 LEELEE MCKOY BACTERIAL 9 [facility] INC INC QUANTTATI VE COLONY COUNT URINE URNLS DIP 94832 LEELEEJOSEFINA MCKOY 9 [facility] STICK/TAB INC INC [place] [address] LEELEE MCKOY LIPASE 9 [facility] INC INC COMPREHEN 24471 L[facility] MCKOY SIVE 9 [facility] METABOLIC INC INC PANEL URNLS DIP 93833 L[facility] LEELEE 9 [facility] STICK/TAB INC INC LET REAGENT AUTO MICROSCOP Y BLOOD 26471 L[facility]E MCKOY COUNT 9 [facility] COMPLETE INC INC AUTO&[place] [address] LEELEE LEELEE AMYLASE 9 [facility] [place] [address] LEELEE MCKOY INFUSION 9 [facility] THERAPY/P INC INC ROPHYLAXI S /DX 1ST TO 1 HR URNLS DIP 38577 [facility] MCKOY 9 [facility] STICK/TAB INC INC LET REAGENT AUTO MICROSCOP Y BLOOD 62815 [facility] MCKOY COUNT 9 [facility] COMPLETE INC INC AUTO&AUTO DIFRNTL WBC COMPREHEN 51256 [facility]E MCKOY SIVE 9 [facility] [place] [address] LEELEE MCKOY LIPASE 9 [place] [address] LEELEE MONTEMAYORON AMYLASE 9 [facility] INC INC BLOOD 36982 LEELEE MCKOY COUNT 9 [facility] COMPLETE INC INC AUTO&[place] [address] LEELE[facility] MCKOY INFUSION 9 [facility] THERAPY/P INC INC ROPHYLAXI S /DX 1ST TO 1 HR URNLS DIP 83120 [facility]E MCKOY 9 [facility] STICK/TAB INC INC LET REAGENT AUTO MICROSCOP Y COMPREHEN 80437 LEELEE MCKOY SIVE 9 [facility] METABOLIC INC INC PANEL RADEX ABD 04120 [facility] M[facility] COMPL 9 [facility] AQT ABD INC INC W/S/E/D VIEWS 1 VIEW CH URNLS DIP 74231 ABEL ROMAN, 9 DON R DON R STICK/TAB LET RGNT NON-AUT[place] W/[place] [address] L[facility] MCK[facility] ABDOMEN 9 [facility] W/[place] [address] LEELEE LEELEE AMYLASE 9 [facility] INC INC BLOOD 90974 LEELEE LEELEE COUNT 9 [facility] COMPLETE INC INC AUTO&AUTO DIFRNTL WBC URNLS DIP 56154 [facility]E MCKOY 9 [facility] STICK/TAB INC INC LET REAGENT AUTO MICROSCOP Y COMPREHEN 30683 LEELEE MCKOY SIVE 9 [facility] [place] [address] LEELEE MCK[facility] LIPASE 9 [facility] INC INC 3D 26505 GAVIN BLISS, RENDERING 9 [facility] W/INTERP& ASSOCIATE POSTPROC S DIFF WORK STATION CT PELVIS 55556 RENETTAGREAT [facility] BLISS, W/O 9 [facility] CONTRAST IMAGING MATERIAL ASSOCIATE S RADEX 00886 GAVIN FAIZAN, FOOT 8 MEDICAL ZOË P COMPLETE IMAGING MINIMUM 3 ASSOCIATE VIEWS S RADEX 02666 LEELEE MCKOY ANKLE 8 [facility] COMPLETE INC INC MINIMUM 3 VIEWS RADEX 30443 LEELEE MCKOY SPINE 8 [facility] LUMBOSACR INC INC AL MINIMUM [address] PELVIS 52116 LEELEE MCKOY W/O & 8 [facility] W/[place] [address] LEELEE MCKOY ABDOMEN 8 [facility] W/O & INC INC W/CONTRAS T MATERIAL BASIC 20703 LEELEE MCKOY METABOLIC 8 [facility] PANEL INC INC CALCIUM TOTAL RADIOLOGI 87163 LEELEE MCKOY C 8 [facility] EXAMINATI INC INC ON PELVIS 1/2 VIEWS URNLS DIP 33785 [facility]E MCKOY 8 [facility] STICK/TAB INC INC LET REAGENT AUTO MICROSCOP Y BLOOD 68193 LEELEE MCKOY COUNT 8 [facility] COMPLETE INC INC AUTO&AUTO DIFRNTL WBC 3D 86807 [facility] 8 [facility] W/INTERP& ASSOCIATE POSTPROC S DIFF WORK STATION URNLS DIP 60723 ABEL ROMAN 8 DON R DON R STICK/TAB LET RGNT NON-AUTO W/O MICRSCP IAADI 80245 LEELEE MCKOY INFLUENZA 8 [facility] B VIRUS INC INC IAADI 34167 LEELEE MCKOY INFFLUENZ 8 [facility] A A VIRUS INC INC IAADIADOO 79356 ABEL ROMAN 8 DON R DON R STREPTOCO CCUS GROUP A BLOOD 92768 LEELEE MCKOY COUNT 8 [facility] COMPLETE INC INC AUTO&AUTO DIFRNTL WBC URNLS DIP 66440 [facility]E MCKOY 8 [facility] STICK/TAB INC INC [place] [address] L[facility]LEE MCKOY THER 8 [facility] PROPH/DX INC INC 1ST >1 HR COMPREHEN 22849 L[facility]LEE MCKOY SIVE 8 [facility] METABOLIC INC INC PANEL IAADIADOO 08131 ABEL ROMAN 8 DON R DON R STREPTOCO CCUS GROUP A Encounters Encounter Start End Date Code Location Performer Type Date [facility] LEELEE - 7 7 [facility] OUTPATIEN INC T OFFICE 07529 L[facility]E OUTPATIEN 7 7 [facility] T VISIT 5 INC MINUTES OFFICE 63625 LAKSHMI BARLOWMILLIEN 7 7 T VISIT 15 MINUTES OFFICE 09249 LAKSHMI STEVEEN 7 7 T VISIT 15 MINUTES OFFICE 94357 LAKSHMI BARLOWBROOKLYN 7 7 T VISIT 25 MINUTES EMERGENCY 29433 KRISTINA BARRERA 7 7 PHYSICIAN Ck [facility] T VISIT MODERATE SEVERITY OFFICE 66211 LAKSHMI BARLOWBROOKLYN 7 7 T VISIT 15 MINUTES EMERGENCY 44802 KRISTINA MATHUR 7 7 PHYSICIAN [facility] T VISIT HIGH/URGE NT SEVERITY OFFICE 05974 LAKSHMI CUEVAS 6 6 T VISIT 15 MINUTES OFFICE 91648 LAKSHMI STEVEEN 6 6 SADIQ SADIQ T VISIT 15 MINUTES OFFICE 75515 JAZMINETAURUS LUCEROTAURUS OUTPATIEN 6 6 SADIQ SADIQ T VISIT 15 MINUTES OFFICE 28308 JAZMINETAURUS LAKSHMI OUTMILLIEN 6 6 SADIQ SADIQ T NEW 30 MINUTES OFFICE 59977 [facility] LA OUTPATIEN 6 6 PHYSICIAN DOMI T VISIT S GROUP 15 MINUTES [facility]OSP[facility] - 6 6 [facility] T [facility] - 6 6 [facility] OUTPATIEN INC T INITIAL 25271 [facility] PRINCESSL PREVENTIV 6 6 PHYSICIAN DOMI E S GROUP MEDICINE NEW PATIENT 40-64YRS [facility] LEELEE - 6 6 [facility] OUTPATIEN INC T OFFICE 36725 IVONE PAYNE OUTPATIEN 6 6 MD MARY, T VISIT PSC 25 MINUTES [facility]OSP[facility] - 6 6 [facility] OUTPATIEN INC T OFFICE 76351 [facility] KEVAN OUTPATIEN 6 6 PHYSICIAN LACEY T VISIT S GROUP 15 MINUTES OFFICE 13207 [facility] KEVAN OUTPATIEN 6 6 PHYSICIAN LACEY T VISIT S GROUP 15 MINUTES [facility]OSP[facility] - 6 6 [facility] - 6 6 [facility] OUTPAT[facility]EN [facility] T OFFICE 20873 [facility] KEVAN OUTPATIEN 6 6 PHYSICIAN LACEY T VISIT S GROUP 15 MINUTES OFFICE 29978 [facility] [address] OUTPATIEN 6 6 PHYSICIAN T VISIT S GROUP 15 MINUTES HOSPITAL [facility] - 6 6 [facility] 35826 [facility] KEVAN OUTPATIEN 6 6 PHYSICIAN LACEY T VISIT S GROUP 10 MINUTES [facility] LEELEE - 6 6 [facility] - 6 6 N OUTPATIEN COMMUNTIY T HOSPITA OFFICE 82452 [facility] 6 6 ORTHOPEDI JEFF T VISIT C 15 ASSOCIAT MINUTES OFFICE 47811 [facility] JOCELYNE SCHMITZ OUTPATIEN 6 6 PHYSICIAN T VISIT S GROUP 15 MINUTES OFFICE 25905 [facility] OUT[facility] 6 6 ORTHOPEDI JEFF T NEW 45 C MINUTES [facility] [place] - 6 6 [facility] T OFFICE 33675 [facility] KEVAN OUTPATIEN 6 6 PHYSICIAN LACEY T VISIT S GROUP 15 MINUTES OFFICE [address] [facility] [address] OUTPATIEN 6 6 PHYSICIAN T VISIT S GROUP 10 MINUTES OFFICE 98372 [facility] KEVAN OUTPATIEN 5 5 PHYSICIAN LACEY T VISIT S GROUP 15 MINUTES [facility]ERG[facility]Y 14687 [facility] PH[facility] LACEY DEPARTMEN S, PLLC T VISIT HIGH/URGE NT SEVERITY EMERGENCY 52986 [facility] 5 5 [facility] DEPARTMEN INC T VISIT LOW/MODER SEVERITY [facility] - 5 5 [facility] OUTPATIEN INC T OFFICE 01702 [facility] KEVAN OUTPATIEN 5 5 PHYSICIAN LACEY T VISIT S GROUP 10 MINUTES OFFICE 24286 [facility] KEVAN OUTPATIEN 5 5 PHYSICIAN LACEY T VISIT S GROUP 15 MINUTES OFFICE 20997 [facility] PETTEY OUTPATIEN 5 5 PHYSICIAN JAM T VISIT S GROUP 15 MINUTES OFFICE 48174 [facility] KEVAN OUTPATIEN 5 5 PHYSICIAN LACEY T VISIT S GROUP 10 MINUTES [facility] - 5 5 [facility] OUTPATIEN INC T OFFICE 60387 [facility] KEVAN OUTPATIEN 5 5 PHYSICIAN LACEY T VISIT S GROUP 10 MINUTES EMERGENCY 87827 KRISTINA KEVAN 5 5 PHYSICIAN LACEY DEPARTMEN S, PLLC T VISIT MODERATE SEVERITY OFFICE 32598 IVONE HERNANDEZ ANJ OUTPATIEN 5 5 MD MARY, T NEW 30 PSC MINUTES [facility] - 5 5 [facility] OUTPATIEN INC T OFFICE 06188 [facility] OUTPATIEN 5 5 [facility] T VISIT INC 10 MINUTES OFFICE 46485 [facility] KEVAN OUTPATIEN 5 5 PHYSICIAN LACEY T VISIT S GROUP 10 MINUTES OFFICE 84552 SNEHAL EVERETT ANT OUTPATIEN 5 5 MEDICAL T VISIT SERV 25 FOUNDATIO MINUTES N OFFICE 91039 [facility] KEVAN OUTPATIEN 5 5 PHYSICIAN LACEY T VISIT S GROUP 15 MINUTES OFFICE 39157 [facility] KEVAN OUTPATIEN 5 5 PHYSICIAN LACEY T VISIT S GROUP 15 MINUTES EMERGENCY 78577 KRISTINA KEVAN 5 5 PHYSICIAN LACEY DEPARTMEN S, PLLC T VISIT MODERATE SEVERITY OFFICE 45832 [facility] KEVAN OUTPATIEN 5 5 PHYSICIAN LACEY T VISIT S GROUP 10 MINUTES OFFICE 02527 [facility] KEVAN OUTPATIEN 5 5 PHYSICIAN LACEY T VISIT S GROUP 10 MINUTES OFFICE 87450 A C YAMIL GABY OUTPATIEN 5 5 RUIZ GARRETT T VISIT PSC 15 MINUTES OFFICE 00189 [facility] FRYMAN OUTPATIEN 5 5 PHYSICIAN EUG T VISIT S GROUP 15 MINUTES OFFICE 43010 [facility] KEVAN OUTPATIEN 5 5 PHYSICIAN LACEY T VISIT S GROUP 25 MINUTES OFFICE 53001 A C KILPELA OUTPATIEN 5 5 RUIZ GARRETT JEA T VISIT PSC 15 MINUTES OFFICE 97545 A C KILPELA OUTPATIEN 5 5 RUIZ GARRETT JEA T VISIT PSC 15 MINUTES OFFICE 58664 [facility] KEVAN OUTPATIEN 5 5 PHYSICIAN LACEY T VISIT S GROUP 15 MINUTES OFFICE 42790 [facility] KEVAN OUTPATIEN 5 5 PHYSICIAN LACEY T VISIT S GROUP 15 MINUTES OFFICE 88739 [facility] KEVAN OUTPATIEN 5 5 PHYSICIAN LACEY T VISIT S GROUP 10 MINUTES OFFICE 30397 [facility] FRYMAN OUTPATIEN 5 5 PHYSICIAN EUG T VISIT S GROUP 15 MINUTES OFFICE 98326 [facility] FRYMAN OUTPATIEN 4 4 PHYSICIAN EUG T VISIT S GROUP 15 MINUTES OFFICE 82399 [facility] KEVAN OUTPATIEN 4 4 PHYSICIAN LACEY T VISIT S GROUP 10 MINUTES EMERGENCY 74039 [facility] 4 4 [facility] DEPARTMEN INC T VISIT LOW/MODER SEVERITY EMERGENCY 48840 [facility] 4 4 [facility] V[facility] PHYS HIGH/URGE NT SEVERITY [facility] - 4 4 [facility] OUTPATIEN INC T OFFICE 72785 [facility] KEVAN OUTPATIEN 4 4 PHYSICIAN LACEY T VISIT S GROUP 15 MINUTES OFFICE 08894 [facility] KEVAN OUTPATIEN 4 4 PHYSICIAN LACEY T VISIT S GROUP 15 MINUTES [facility] - 4 4 [facility] OUTPATIEN INC T OFFICE 32761 [facility] KEVAN OUTPATIEN 4 4 PHYSICIAN LACEY T VISIT S GROUP 10 MINUTES [facility] - 4 4 [facility] OUTPATIEN INC T [facility] - 4 4 [facility] OUTPATIEN INC T OFFICE 91329 [facility] KEVAN OUTPATIEN 4 4 PHYSICIAN LACEY T VISIT S GROUP 15 MINUTES EMERGENCY 26009 [facility] KEVAN 4 4 CLARIBEL LACEY DEPARTMEN EMERGENCY T VISIT PHYS MODERATE SEVERITY OFFICE 77861 A C KILPELA OUTPATIEN 4 4 RUIZ BOUDREAUX T VISIT PSC 15 MINUTES OFFICE 72991 A C KILPELA OUTPATIEN 4 4 RUIZ BOUDREAUX T VISIT PSC 15 MINUTES EMERGENCY 37737 [facility] KEVAN 4 4 CLARIBEL LACEY DEPARTMEN EMERGENCY T VISIT PHYS HIGH/URGE NT SEVERITY OFFICE 39074 A C KILPELA OUTPATIEN 4 4 RUIZ BOUDREAUX T VISIT PSC 15 MINUTES OFFICE 48223 A C FIELD AMB OUTPATIEN 4 4 RUIZ GARRETT T VISIT PSC 15 MINUTES OFFICE 26178 [facility] KEVAN OUTPATIEN 4 4 PHYSICIAN LACEY T VISIT S GROUP 15 MINUTES OFFICE 14294 RUIZ Keating OUTPATIEN 4 4 T VISIT 15 MINUTES [facility] - 4 4 [facility] OUTPATIEN INC T OFFICE 11051 KILPELA KILPELA OUTPATIEN 4 4 JEA JEA T VISIT 15 MINUTES OFFICE 02263 FIELD AMB FIELD AMB OUTPATIEN 4 4 T VISIT 15 MINUTES EMERGENCY 69771 KEVAN MATHUR 4 4 LACEY LACEY DEPARTMEN T VISIT MODERATE SEVERITY OFFICE 66505 FIELD AMB FIELD AMB OUTPATIEN 4 4 T VISIT 15 MINUTES OFFICE 88984 KILPELA KILPELA OUTPATIEN 4 4 JEA JEA T VISIT 15 MINUTES [facility] [place] [facility] 4 4 [facility], ATTN: DENE OFFICE 10203 FIELD AMB FIELD AMB OUTPATIEN 4 4 T VISIT 15 MINUTES OFFICE 74744 FIELD AMB FIELD AMB OUTPATIEN 4 4 T VISIT 15 MINUTES OFFICE 46732 FIELD AMB FIELD AMB OUTPATIEN 4 4 T VISIT 15 MINUTES OFFICE 01798 CHELO CHELO OUTPATIEN 4 4 CONRAD CONRAD T VISIT 15 MINUTES OFFICE 36118 FIELD AMB FIELD AMB OUTPATIEN 4 4 T VISIT 15 MINUTES OFFICE 84907 KILPELA KILPELA OUTPATIEN 4 4 JEA JEA T VISIT 15 MINUTES OFFICE 05858 FIELD AMB FIELD AMB OUTPATIEN 4 4 T VISIT 15 MINUTES OFFICE 14168 KILPELA KILPELA OUTPATIEN 4 4 JEA JEA T VISIT 15 MINUTES OFFICE 76041 MARTHA THOMAS SEFERINO OUTPATIEN 4 4 T VISIT 15 MINUTES OFFICE 82519 KILPELA KILPELA OUTPATIEN 4 4 JEA JEA T VISIT 15 MINUTES OFFICE 51819 ROJAS STEVE ROJAS STEVE OUTPATIEN 4 4 T VISIT 15 MINUTES OFFICE 42865 FIELD AMB FIELD AMB OUTPATIEN 4 4 T VISIT 15 MINUTES OFFICE 90670 MARTHA GENTILE OUTPATIEN 3 3 T VISIT 15 MINUTES OFFICE 77055 SANTANA DILLON CONSULTAT 3 3 MEJIA BA ION NEW/ESTAB PATIENT 40 MIN OFFICE 71550 ROJAS STEVE ROJAS STEVE OUTPATIEN 3 3 T VISIT 25 MINUTES OFFICE 25651 FIELD AMB FIELD AMB OUTPATIEN 3 3 T VISIT 15 MINUTES [facility] - 3 3 [facility] OUTPAT[facility]EN INC T OFFICE 79432 FIELD AMB FIELD AMB OUTPATIEN 3 3 T VISIT 15 MINUTES OFFICE 05158 KILPELA KILPELA OUTPATIEN 3 3 JEA JEA T VISIT 15 MINUTES OFFICE 34734 WALDEMAR WALDEMAR OUTPATIEN 3 3 DOMI DOMI T VISIT 25 MINUTES OFFICE 63554 FIELD AMB FIELD AMB OUTPATIEN 3 3 T VISIT 15 MINUTES OFFICE 52533 A C SHON OUTPATIEN 3 3 RUIZ BOUDREAUX T VISIT PSC 15 MINUTES OFFICE 73986 Zuri MELCHOR A OUTPATIEN 3 3 RUIZ GARRETT T VISIT PSC 15 MINUTES [facility] - 3 3 [facility] OUTPATIEN INC T OFFICE 01343 ROJAS STEVE ROJAS STEVE CONSULTAT 3 3 ION NEW/ESTAB PATIENT 60 MIN OFFICE 44464 ROMAN ROMAN OUTPATIEN 3 3 DON DON T VISIT 15 MINUTES OFFICE 95586 ROMAN ROMAN OUTPATIEN 3 3 DON DON T VISIT 15 MINUTES OFFICE 73774 FAMILY OUTPATIEN 3 3 CARE T VISIT ASSOCIATE 15 S MINUTES OFFICE 43585 ROMAN ROMAN OUTPATIEN 3 3 DON DON T VISIT 15 MINUTES OFFICE 37452 ROMAN ROMAN OUTPATIEN 3 3 DON DON T VISIT 15 MINUTES OFFICE 98791 ROMAN ROMAN OUTPATIEN 3 3 DON DON T VISIT 25 MINUTES OFFICE 17331 ROMAN ROMAN OUTPATIEN 3 3 DON DON T VISIT 15 MINUTES EMERGENCY 76973 [facility] 3 3 [facility] DEPARTMEN INC T VISIT LOW/MODER SEVERITY EMERGENCY 18833 PREETI ÁLVAREZ 3 3 III JESSEE III [facility] T VISIT MODERATE SEVERITY [facility] - 3 3 [facility] OUTPATIEN INC T OFFICE 52653 PETTEY PETTEY OUTPATIEN 3 3 JAM JAM T VISIT 15 MINUTES [facility] - 3 3 [facility] OUTPATIEN INC T OFFICE 03210 PETTE[facility] PETTEY OUTPATIEN 3 3 JAM JAM T NEW 30 MINUTES [facility] - 3 3 [facility] OUT[facility] INC T OFFICE 53441 ROMAN ROMAN OUTPATIEN 3 3 DON DON T VISIT 15 MINUTES OFFICE 91048 ROMAN ROMAN OUTPATIEN 3 3 DON DON T VISIT 15 MINUTES OFFICE 70220 ROMAN ROMAN OUTPATIEN 3 3 DON DON T VISIT 15 MINUTES OFFICE 78661 ROMAN ROMAN OUTPATIEN 3 3 DON DON T VISIT 15 MINUTES EMERGENCY 37893 JOSE MARIA DE LA ROSA 2 2 EMERGENCY [facility] T VISIT HIGH/URGE NT SEVERITY [facility] - 2 2 [facility] OUT[facility] INC T EMERGENCY 83910 [facility] 2 2 [facility] MODERATE SEVERITY OFFICE 93507 ROMAN ROMAN OUTPATIEN 2 2 DON DON T VISIT 15 MINUTES OFFICE 50133 ROMAN ROMAN OUTPATIEN 2 2 DON DON T VISIT 15 MINUTES OFFICE 09841 ROMAN ROMAN OUTPATIEN 2 2 DON DON T VISIT 15 MINUTES OFFICE 56826 ROMAN ROMAN OUTPATIEN 2 2 DON DON T VISIT 15 MINUTES OFFICE 40630 ROMAN ROMAN OUTPATIEN 2 2 DON DON T VISIT 15 MINUTES EMERGENCY 74109 JOSE MARIA LINDQUIST 2 2 EMERGENCY DEPARTMEN SERVICES T VISIT MODERATE SEVERITY EMERGENCY 74979 [facility] 2 2 [facility] DEPARTMEN INC T VISIT LOW/MODER SEVERITY [facility] 2 2 [facility] 56492 ABEL KITCHENS OUTPATIEN 2 2 DON DON T VISIT 15 MINUTES EMERGENCY 98604 JOSE MARIA DE LA ROSA 2 2 EMERGENCY JESSEE DEPARTMEN SERVICES T VISIT HIGH/URGE NT SEVERITY [facility] - 2 2 [facility] T EMERGENC[facility] 93255 KEVAN MATHUR 2 2 LACEY LACEY DEPARTMEN T VISIT MODERATE SEVERITY EMERGENCY 96293 [facility] 2 2 [facility] DEPARTMEN INC T VISIT LOW/MODER SEVERITY OFFICE 56246 ROMAN ROMAN OUTPATIEN 2 2 DON DON T VISIT 15 MINUTES OFFICE 31974 ROMAN ROMAN OUTPATIEN 2 2 DON DON T VISIT 15 MINUTES EMERGENCY 90188 PREETI ÁLVAREZ 2 2 III JESSEE III JESSEE DEPARTMEN T VISIT HIGH/URGE NT SEVERITY [facility] - 2 2 [facility] OUTPATIEN INC T EMERGENCY 01220 [facility] 2 2 [facility] INC T VISIT LOW/MODER SEVERITY OFFICE 96359 ROMAN ROMAN OUTPATIEN 2 2 DON DON T VISIT 15 MINUTES OFFICE 75722 ROMAN ROMAN OUTPATIEN 2 2 DON DON T VISIT 15 MINUTES OFFICE 48451 ROMAN ROMAN OUTPATIEN 2 2 DON DON T VISIT 15 MINUTES [facility] 2 2 [facility] 74387 PREETI ÁLVAREZ 2 2 III JESSEE III [facility] T VISIT HIGH/URGE NT SEVERITY EMERGENCY 18504 [facility] 2 2 [facility] INC T VISIT MODERATE SEVERITY OFFICE 18929 ROMAN ROMAN OUTPATIEN 2 2 DON DON T VISIT 15 MINUTES [facility] - 2 2 [facility] 14286 [facility] 2 2 [facility] INC T VISIT HIGH/URGE NT SEVERITY OFFICE 19520 WALDEMAR MEDEIROS CONSULTAT 2 2 DOMI DOMI ION NEW/ESTAB PATIENT 60 MIN [facility] 2 2 [facility] 89997 ROMAN ROMAN OUTPATIEN 2 2 DON DON T VISIT 25 MINUTES OFFICE 69286 ROMAN ROMAN OUTPATIEN 2 2 DON DON T VISIT 15 MINUTES [facility] - 2 2 [facility] T EMERGENC[facility] 93877 JOSE MARIA MATHUR 2 2 EMERGENCY [facility] SERVICES T VISIT HIGH/URGE NT SEVERITY EMERGENCY 94917 [facility] 2 2 [facility] INC T VISIT MODERATE SEVERITY EMERGENCY 35145 [facility] MOD[facility]ATE SEVERITY EMERGENCY 65745 [facility] FERNAN[facility] 2 2 DEPARTMEN T VISIT MODERATE SEVERITY [facility] - 2 2 [facility] OUTPATIEN INC T OFFICE 62467 ROMAN ROMAN OUTPATIEN 2 2 DON DON T VISIT 15 MINUTES [facility] - 2 2 [facility] T [facility] 95917 [facility]IS[facility] MODERATE SEVERITY EMERGENCY 10743 JOSE MARIA MATHUR 2 2 EMERGENCY [facility] SERVICES T VISIT HIGH/URGE NT SEVERITY [facility] - 2 2 [facility]ERGENC[facility] 68184 PREETI ÁLVAREZ 2 2 III [facility] HIGH/URGE NT SEVERITY EMERGENCY 76881 [facility] MOD[facility]ATE SEVERITY OFFICE 18196 [facility] OUTPATIEN 2 2 DON DON T VISIT 15 MINUTES OFFICE 94356 [facility] ROMAN OUTPATIEN 2 2 DON DON T VISIT 25 MINUTES [facility] T EMERGENCY 67093 [facility] 2 [facility] MODERATE SEVERITY EMERGENCY 88203 JOSE MARIA MATHUR 2 2 EMERGENCY [facility] SERVICES T VISIT HIGH/URGE NT SEVERITY OFFICE 89227 [facility] ROMAN OUTPATIEN 2 2 DON DON T VISIT 15 MINUTES EMERGENCY 72629 [facility] 2 2 [facility] MODERATE SEVERITY EMERGENCY 62914 PREETI ÁLVAREZ 2 2 III [facility] H[facility]URGE NT SEVERITY [facility] - 2 2 [facility] INC T OFFICE 26426 ROMAN ROMAN OUTPATIEN 2 2 DON DON T VISIT 15 MINUTES OFFICE 39996 ROMAN ROMAN OUTPATIEN 2 2 DON DON T VISIT 15 MINUTES OFFICE 05645 ROM[facility] ROMAN OUTPATIEN 2 2 DON DON T VISIT 15 MINUTES OFFICE 97263 [facility] ROMAN OUTPATIEN 2 2 DON DON T VISIT 15 MINUTES OFFICE 03605 [facility] OUTPATIEN 2 2 DON DON T VISIT 15 MINUTES EMERGENCY 49194 JOSE MARIA MATHUR 2 2 [facility] HIGH/URGE NT SEVERITY OFFICE 52498 [facility]AN OUTPATIEN 2 2 DON DON T VISIT 15 MINUTES OFFICE 09773 ROMAN ROMAN OUTPATIEN 1 1 DON DON T VISIT 15 MINUTES [facility] - 1 1 [facility] INC T EMERGENCY 85201 KEVAN MATHUR 1 1 [facility] DE[facility] T VISIT HIGH/URGE NT SEVERITY EMERGENCY 51838 [facility] 1 1 [facility] INC T VISIT LOW/MODER SEVERITY OFFICE 80241 [facility] OUTPATIEN 1 1 DON DON T VISIT 15 MINUTES OFFICE 52395 [facility] ROMAN OUTPATIEN 1 1 DON DON T VISIT 15 MINUTES OFFICE 24247 ROMAN ROMAN OUTPATIEN 1 1 DON DON T VISIT 15 MINUTES EMERGENCY 98828 [facility] 1 1 [facility] INC T VISIT HIGH/URGE NT SEVERITY [facility] - 1 1 [facility] INC T EMERGENCY 63074 JOSE MARIA MORTON 1 1 EMERGENCY DEPARTMEN SERVICES T VISIT HIGH/URGE NT SEVERITY EMERGENCY 29838 [facility] 1 1 [facility] INC T VISIT MODERATE SEVERITY [facility] - 1 1 [facility] INC T OFFICE 86157 ROMAN ROMAN OUTPATIEN 1 1 DON DON T VISIT 15 MINUTES [facility] - 1 1 [facility] INC T EMERGENCY 35252 JOSE MARIA MATHUR DEPT 1 1 EMERGENCY [facility] VISIT SERVICES HIGH SEVERITY& THREAT FUN EMERGENCY 28291 [place] 1 1 [facility] DEPARTMEN INC T VISIT MODERATE SEVERITY OFFICE 11728 ROMAN ROMAN OUTPATIEN 1 1 DON DON T VISIT 15 MINUTES OFFICE 43006 ROMAN ROMAN OUTPATIEN 1 1 DON DON T VISIT 25 MINUTES OFFICE 82886 ROMAN ROMAN OUTPATIEN 1 1 DON DON T VISIT 15 MINUTES EMERGENCY 85461 [place] 1 1 [facility] DE[facility] INC T VISIT LOW/MODER SEVERITY [facility] - 1 1 [facility] OUT[facility] INC T OFFICE 27464 ROMAN ROMAN OUTPATIEN 1 1 DON DON T VISIT 15 MINUTES EMERGENCY 99375 JOSE MARIA ÁLVAREZ DEPT 1 1 EMERGENCY III JESSEE VISIT SERVICES HIGH SEVERITY& THREAT [facility] - 1 1 [facility] OUT[facility] INC T EMERGENCY 57603 [facility] 1 1 [facility] DEPARTMEN INC T VISIT LOW/MODER SEVERITY OFFICE 84169 ROMAN ROMAN OUTPATIEN 1 1 DON DON T VISIT 15 MINUTES EMERGENCY 82267 [place] 1 1 [facility] DE[facility] INC T VISIT LOW/MODER SEVERITY EMERGENCY 44523 JOSE MARIA MATHUR 1 1 EMERGENCY [facility] SERVICES T VISIT HIGH/URGE NT SEVERITY [facility]OSP[facility] - 1 1 [facility] INC T [facility] 1 1 [facility] OUTPATI[facility] INC T EMERGENCY 41217 JOSE MARIA MATHUR 1 1 EMERGENCY [facility] SERVICES T VISIT HIGH/URGE NT SEVERITY OFFICE 23384 ROMAN ROMAN OUTPATIEN 1 1 DON DON T VISIT 15 MINUTES [facility] [facility] - 1 1 [facility] INC T OFFICE 91765 [facility] OUTPATIEN 1 1 DON DON T VISIT 15 MINUTES OFFICE [id number] [facility]AN OUTPATIEN 1 1 DON DON T VISIT 15 MINUTES OFFICE 04970 [facility]AN OUTPATIEN 0 0 DON DON T VISIT 15 MINUTES EMERGENCY 89090 JOSE MARIA ÁLVAREZ 0 0 EMERGENCY [facility] SERVICES T VISIT MODERATE SEVERITY [facility] - [facility] T EMERGENCY 11128 [place] 0 0 [facility] INC T VISIT LOW/MODER SEVERITY [facility] - [facility] T EMERGENCY 92559 JOSE MARIA LINDSEY DEPT 0 0 EMERGENCY SHAN VISIT SERVICES HIGH SEVERITY& THREAT FUNCJ EMERGENCY 91942 [place] 0 0 [facility] T VISIT MODERATE SEVERITY OFFICE 91503 [facility] OUTPATIEN 0 0 DON DON T VISIT 15 MINUTES EMERGENCY 95678 JOSE MARIA LINDSEY DEPT 0 0 EMERGENCY SHAN VISIT SERVICES HIGH SEVERITY& THREAT FUNCJ EMERGENCY 03963 [place] 0 0 [facility] INC T VISIT HIGH/URGE NT SEVERITY [facility] - [facility] 0 [facility] T EMERGENCY 06210 JOSE MARIA LINDSEY DEPT 0 0 EMERGENCY SHAN VISIT SERVICES HIGH SEVERITY& THREAT FUNCJ OFFICE 75656 [facility] OUTPAT[facility]EN 0 0 [facility] T VISIT 25 MINUTES EMERGENCY 36542 JOSE MARIA CHAPMAN 0 0 EMERGENCY JAM DEPARTMEN SERVICES T VISIT MODERATE SEVERITY [facility] - [facility] 0 [facility] T EMERGENCY 75308 [place] 0 0 [facility] INC T VISIT LIMITED/M INOR PROB OFFICE 16443 [facility]AN OUTPATIEN 0 0 DON DON T VISIT 15 MINUTES OFFICE 82799 [facility]AN OUTPATIEN 0 0 DON DON T VISIT 15 MINUTES EMERGENCY 17657 [place] 0 0 [facility] INC T VISIT LIMITED/M INOR [facility]OB [facility] - 0 0 [facility] T EMERGENCY 07690 JOSE MARIA MORTON 0 0 EMERGENCY DEPARTMEN SERVICES T VISIT HIGH/URGE NT SEVERITY EMERGENCY 25620 [place] 0 0 [facility] INC T VISIT LIMITED/M INOR [facility] - [facility] T EMERGENCY 54484 [place] 0 0 [facility] DE[facility] INC T VISIT LIMITED/M INOR [facility] - 0 0 [facility] T EMERGENCY 84879 JOSE MARIA ÁLVAREZ 0 0 EMERGENCY III [facility] SERVICES T VISIT HIGH/URGE NT SEVERITY EMERGENCY 52133 JOSE MARIA ÁLVAREZ 0 0 [facility] HIGH/URGE NT SEVERITY EMERGENCY 97274 [facility] 0 0 [facility]OW/MODER SEVERITY [facility] - 0 0 [facility] T [facility]OSP[facility] 0 0 [facility] T EMERGENCY 87347 JOSE MARIA MATHUR 0 0 [facility]IS[facility] HIGH/URGE NT SEVERITY EMERGENCY 69413 [place] 0 0 [facility] T VISIT LOW/MODER SEVERITY OFFICE 06046 [place] [facility] PHI CONSULTAT 0 0 MEDICAL ION SERV NEW/ESTAB FOUNDATIO PATIENT 40 MIN [facility] 0 0 [facility] T EMERGENCY 77037 JOSE MARIA MATHUR 0 0 [facility]ISIT HIGH/URGE NT SEVERITY EMERGENCY 08858 [place] 0 0 [facility] T VISIT LIMITED/M INOR PROB EMERGENCY 98711 JOSE MARIA MATHUR, 0 0 EMERGENCY [facility] SERVICES T VISIT HIGH/URGE ASSOCIATE NT S SEVERITY EMERGENCY 31703 [place] 0 0 [facility] T VISIT LIMITED/M INOR PROB [facility] [place] - 0 0 [facility] OUTPATIEN [facility] T OFFICE 97095 ABEL ROMAN OUTPATIEN 0 0 DON R DON R T VISIT 15 MINUTES [facility] - 0 0 [facility] OUTPATIEN [facility] T EMERGENCY 78543 JOSE MARIA ÁLVAREZ 0 0 [facility] ANGELI[facility] T VISIT HIGH/URGE ASSOCIATE NT S SEVERITY [facility] - 0 0 [facility] T OFFICE 78932 ABEL ROMAN OUTPATIEN 0 0 DON R DON R T VISIT 25 MINUTES EMERGENCY 01300 JOSE MARIA MATHUR, 0 0 EMERGENCY [facility] SERVICES T VISIT HIGH/URGE ASSOCIATE NT S SEVERITY EMERGENCY 15889 [place] 0 0 [facility] DE[facility] INC T VISIT LIMITED/M INOR PROB [facility] [place] - 0 0 [facility] T EMERGENCY 17709 [place] 0 0 [facility] DE[facility] INC T VISIT LOW/MODER SEVERITY EMERGENCY 59790 JOSE MARIA MATHUR, 0 0 EMERGENCY [facility] SERVICES T VISIT MODERATE ASSOCIATE SEVERITY S [facility] - 0 0 [facility] T OFFICE 31618 ABEL ROMAN OUTPATIEN 0 0 DON R DON R T VISIT 15 MINUTES [facility] - 0 0 [facility] T EMERGENCY 71534 [place] 0 0 [facility] DE[facility] INC T VISIT MODERATE SEVERITY EMERGENCY 15165 JOSE MARIA IRELAND, 0 0 EMERGENCY [facility] SERVICES M T VISIT HIGH/URGE ASSOCIATE NT S SEVERITY [facility] - 0 0 [facility] T EMERGENCY 41431 JOSE MARIA MATHUR, 0 0 EMERGENCY [facility] SERVICES T VISIT HIGH/URGE ASSOCIATE NT S SEVERITY EMERGENCY 64497 [place] 0 0 [facility] DE[facility] INC T VISIT MODERATE SEVERITY [facility] - 0 0 [facility] T EMERGENCY 91613 JOSE MARIA MATHUR, 0 0 EMERGENCY [facility] SERVICES T VISIT HIGH/URGE ASSOCIATE NT S SEVERITY OFFICE 00380 ABEL ROMAN OUTPATIEN 9 9 DON R DON R T VISIT 15 MINUTES EMERGENCY 13460 [place] 9 9 [facility] DE[facility] INC T VISIT LIMITED/M INOR PROB [facility] [place] - 9 9 [facility] T [facility] [place] - 9 9 [facility] INC T EMERGENCY 34411 JOSE MARIA MATHUR, 9 9 EMERGENCY [facility] SERVICES T VISIT HIGH/URGE ASSOCIATE NT S SEVERITY EMERGENCY 07235 [place] 9 9 [facility] T VISIT MODERATE SEVERITY EMERGENCY 89327 [place] 9 9 [facility] T VISIT LIMITED/M INOR PROB EMERGENCY 85182 JOSE MARIA MATHUR, 9 9 EMERGENCY [facility] SERVICES T VISIT HIGH/URGE ASSOCIATE NT S SEVERITY [facility] - 9 9 [facility] T EMERGENCY 48168 [facility] 9 9 [facility] T VISIT LIMITED/M INOR PROB EMERGENCY 97609 JOSE MARIA MATHUR, 9 9 EMERGENCY [facility] SERVICES T VISIT HIGH/URGE ASSOCIATE NT S SEVERITY [facility] - 9 9 [facility] INC T OFFICE 75673 ABEL ROMAN OUTPATIEN 9 9 DON R DON R T VISIT 15 MINUTES EMERGENCY 20173 [place] 9 9 [facility] DEPART[facility] INC T VISIT LOW/MODER SEVERITY EMERGENCY 77955 JOSE MARIA MATHUR, 9 9 EMERGENCY [facility] SERVICES T VISIT MODERATE ASSOCIATE SEVERITY S [facility]OSP[facility] [place] - 9 9 [facility] T [facility] - 9 9 [facility] T EMERGENCY 68742 JOSE MARIA MATHUR, 9 9 EMERGENCY [facility] SERVICES T VISIT HIGH/URGE ASSOCIATE NT S SEVERITY EMERGENCY 42736 [place] 9 9 [facility] INC T VISIT LOW/MODER SEVERITY EMERGENCY 08934 JOSE MARIA MATHUR, 9 9 EMERGENCY [facility] SERVICES T VISIT HIGH/URGE ASSOCIATE NT S SEVERITY EMERGENCY 76019 [place] 9 9 [facility]ISIT [facility]/M INOR PROB [facility] [place] - 9 9 [facility] 9 9 [facility] T OFFICE 40233 ABEL ROMAN OUTPATIEN 9 9 DON R DON R T VISIT 15 MINUTES OFFICE 82119 CHIKIS DIOP, CONSULTAT 9 9 DESI SANCHEZ NEW/ESTAB PATIENT 80 MIN OFFICE 62720 ABEL ROMAN OUTPATIEN 9 9 DON R DON R T VISIT 15 MINUTES [facility] - 9 9 [facility] INC T EMERGENCY 23925 JOSE MARIA CASTANEDA, 9 9 EMERGENCY [facility] SERVICES T VISIT HIGH/URGE ASSOCIATE NT S SEVERITY EMERGENCY 86368 [place] 9 9 [facility] DEPART[facility] INC T VISIT LOW/MODER SEVERITY [facility] - 9 9 [facility] INC T EMERGENCY 50547 [place] 9 9 [facility] T VISIT LIMITED/M INOR PROB EMERGENCY 51978 [place] 9 9 [facility] T VISIT LOW/MODER SEVERITY EMERGENCY 31304 JOSE MARIA CASTANEDA, DEPT 9 9 EMERGENCY [place] VISIT SERVICES HIGH SEVERITY& ASSOCIATE THREAT S [facility] - 9 9 [facility] INC T EMERGENCY 61836 [place] 9 9 [facility] DEPART[facility] INC T VISIT LOW/MODER SEVERITY EMERGENCY 98240 JOSE MARIA MATHUR, 9 9 EMERGENCY [facility] SERVICES T VISIT HIGH/URGE ASSOCIATE NT S SEVERITY EMERGENCY 00865 JOSE MARIA MATHUR, 9 9 EMERGENCY [facility] SERVICES T VISIT HIGH/URGE ASSOCIATE NT S SEVERITY EMERGENCY 04981 [place] 9 9 [facility] DEPART[facility] INC T VISIT LIMITED/M INOR [facility] - 9 9 [facility] INC T EMERGENCY 44963 [place] 9 9 [facility] INC T VISIT LIMITED/M INOR [facility] - 9 9 [facility] INC T EMERGENCY 63241 JOSE MARIA MATHUR, 9 9 EMERGENCY [facility] SERVICES T VISIT HIGH/URGE ASSOCIATE NT S SEVERITY [facility] - 9 9 [facility] T EMERGENCY 10924 JOSE MARIA MATHUR, 9 9 EMERGENCY [facility] SERVICES T VISIT MODERATE ASSOCIATE SEVERITY S EMERGENCY 07931 [place] 9 9 [facility] DE[facility] INC T VISIT LIMITED/M INOR PROB [facility] - 9 9 [facility] T EMERGENCY 73039 JOSE MARIA BOOTH, DEPT 9 9 EMERGENCY [place] P VISIT SERVICES HIGH SEVERITY& ASSOCIATE THREAT S [facility] EMERGENCY 39405 [place] 9 9 [facility] DEPART[facility] INC T VISIT LIMITED/M INOR PROB [facility] [place] - 9 9 [facility] INC T EMERGENCY 18052 JOSE MARIA MATHUR, 9 9 EMERGENCY [facility] SERVICES T VISIT MODERATE ASSOCIATE SEVERITY S EMERGENCY 94855 [place] 9 9 [facility] DEPART[facility] INC T VISIT LOW/MODER SEVERITY EMERGENCY 76537 [place] 9 9 [facility] DEPART[facility] INC T VISIT LIMITED/M INOR PROB [facility] [place] - 9 9 [facility] INC T EMERGENCY 22687 JOSE MARIA MATHUR, 9 9 EMERGENCY [facility] SERVICES T VISIT MODERATE ASSOCIATE SEVERITY S [facility] [place] - 9 9 [facility] 61859 [place] 9 9 [facility] VISIT LOW/MODER SEVERITY EMERGENCY 57378 JOSE MARIA MATHUR, 9 9 EMERGENCY [facility] SERVICES T VISIT MODERATE ASSOCIATE SEVERITY S [facility] [place] - 9 9 [facility] EMER[facility] 81506 [place] 9 9 [facility] T VISIT LOW/MODER SEVERITY EMERGENCY 01473 JOSE MARIA MATHUR, 9 9 EMERGENCY [facility] SERVICES T VISIT HIGH/URGE ASSOCIATE NT S SEVERITY EMERGENCY 75486 [place] 9 9 [facility] VISIT MODERATE SEVERITY [facility] [place] - 9 9 [facility] 18803 JOSE MARIA MATHUR, 9 9 EMERGENCY [facility] SERVICES T VISIT HIGH/URGE ASSOCIATE NT S SEVERITY EMERGENCY 19221 JOSE MARIA MATHUR, 9 9 EMERGENCY [facility] SERVICES T VISIT HIGH/URGE ASSOCIATE NT S SEVERITY EMERGENCY 22240 [place] 9 9 [facility] INC T VISIT LIMITED/M INOR PROB [facility] [place] - 9 9 [facility] INC T EMERGENCY 72323 [place] 9 9 [facility] DE[facility] INC T VISIT LIMITED/M INOR PROB EMERGENCY 80060 JOSE MARIA COLEMAN, 9 9 [facility]ISIT MODERATE ASSOCIATE SEVERITY S [facility] - 9 9 [facility] INC T EMERGENCY 22808 JOSE MARIA MATHUR, 9 9 EMERGENCY [facility] SERVICES T VISIT MODERATE ASSOCIATE SEVERITY S [facility] [place] - 9 9 [facility] INC T EMERGENCY 47415 [place] 9 9 [facility] DEPART[facility] INC T VISIT LOW/MODER SEVERITY EMERGENCY 96122 [place] 9 9 [facility] DEPART[facility] INC T VISIT LIMITED/M INOR PROB EMERGENCY 19850 JOSE MARIA MATHUR, 9 9 EMERGENCY [facility] SERVICES T VISIT MODERATE ASSOCIATE SEVERITY S [facility] [place] - 9 9 [facility] INC T EMERGENCY 29416 [place] 9 9 [facility] DEPART[facility] INC T VISIT LIMITED/M INOR PROB EMERGENCY 64543 JOSE MARIA MATHUR, 9 9 EMERGENCY [facility] SERVICES T VISIT HIGH/URGE ASSOCIATE NT S SEVERITY [facility] [place] - 9 9 [facility] INC T [facility] [place] - 9 9 [facility] INC T EMERGENCY 51784 [place] 9 9 [facility] DEPART[facility] INC T VISIT MODERATE SEVERITY EMERGENCY 33933 JOSE MARIA MATHUR, 9 9 [facility]ISIT HIGH/URGE ASSOCIATE NT S SEVERITY EMERGENCY 79555 JOSE MARIA MATHUR, 9 9 EMERGENCY [facility] SERVICES T VISIT HIGH/URGE ASSOCIATE NT S SEVERITY EMERGENCY 24131 [place] 9 9 [facility] DE[facility] INC T VISIT MODERATE SEVERITY [facility] [place] - 9 9 [facility] OUT[facility] INC T EMERGENCY 30938 JOSE MARIA CASTANEDA, 9 9 EMERGENCY [facility] SERVICES T VISIT MODERATE ASSOCIATE SEVERITY S EMERGENCY 86178 [place] 9 9 [facility] INC T VISIT LIMITED/M INOR PROB [facility]OSP[facility] [place] - 9 9 [facility] T [facility] [place] - 9 9 [facility] INC T EMERGENCY 28817 JOSE MARIA MATHUR, DEPT 9 9 EMERGENCY [facility] VISIT SERVICES HIGH SEVERITY& ASSOCIATE THREAT S [facility] EMERGENCY 90163 [place] 9 9 [facility]ISIT MODERATE SEVERITY OFFICE 77947 ABEL ROMAN OUTPATIEN 9 9 DON R DON R T VISIT 15 MINUTES EMERGENCY 29140 [place] 9 9 [facility] T VISIT LOW/MODER SEVERITY [facility] [place] - 9 9 [facility] INC T OFFICE 36263 ABEL ROMAN OUTPATIEN 9 9 DON R DON R T VISIT 15 MINUTES EMERGENCY 37784 LUCHO MATHUR, 9 9 [facility] T VISIT ON MODERATE SEVERITY [facility] [place] - 9 9 [facility] INC T EMERGENCY 24231 [place] 9 9 [facility] DEPARTMEN INC T VISIT LOW/MODER SEVERITY [facility] [place] - 9 9 [facility] INC T EMERGENCY 43668 [place] 9 9 [facility] DEPARTMEN INC T VISIT LOW/MODER SEVERITY EMERGENCY 84703 LUCHO MATHUR, 9 9 [facility] T VISIT ON MODERATE SEVERITY EMERGENCY 91554 LUCHO CASTANEDA, 9 9 [facility] T VISIT ON MODERATE SEVERITY EMERGENCY 32717 [place] 9 9 [facility] DEPARTMEN [facility] T VISIT LIMITED/M INOR PROB [facility] [place] - 9 9 [facility] OUTPAT[facility] INC T OFFICE 17918 ABEL ROMAN OUTPATIEN 9 9 DON R DON R T VISIT 15 MINUTES EMERGENCY 38709 LUCHO MATHUR, DEPT 9 9 [facility] VISIT [facility] HIGH ON SEVERITY& THREAT FUNJ EMERGENCY 90067 [place] 9 9 [facility] T VISIT HIGH/URGE NT SEVERITY [facility] [place] - 9 9 [facility] T HOSPITAL [place] - 8 8 [facility] T EMERGENCY 93586 [place] 8 8 [facility] T VISIT LOW/MODER SEVERITY EMERGENCY 89274 LUCHO MATHUR, 8 8 [facility] T VISIT ON MODERATE SEVERITY OFFICE 96260 ABEL ROMAN OUTPATIEN 8 8 DON R DON R T VISIT 15 MINUTES HOSPITAL [facility] - 8 8 [facility] T EMERGENCY 45380 [place] 8 8 [facility] T VISIT HIGH/URGE NT SEVERITY [facility] - 8 8 [facility] T EMERGENCY 99447 [place] 8 8 [facility] DEPARTMEN [facility] T VISIT LIMITED/M INOR PROB EMERGENCY 77233 [place] 8 8 [facility] DEPARTMEN [facility] T VISIT LIMITED/M INOR PROB [facility]OSPITAL [place] - 8 8 [facility]EN [facility] T OFFICE 53947 ABEL ROMAN OUTPATIEN 8 8 DON R DON R T VISIT 15 MINUTES EMERGENCY 27555 [place] 8 8 [facility] T VISIT LOW/MODER SEVERITY [facility]PITAL [place] - 8 8 [facility] T OFFICE 89868 ABEL ROMAN OUTPATIEN 8 8 DON R DON R T VISIT 15 MINUTES OFFICE 56353 ABEL ROMAN OUTPATIEN 8 8 DON R DON R T VISIT 15 MINUTES OFFICE 66219 ABEL ROMAN OUTPATIEN 8 8 DON R DON R T VISIT 15 MINUTES EMERGENCY 37310 [place] 8 8 [facility] T VISIT LOW/MODER SEVERITY [facility] - 8 8 [facility] T EMERGENCY 74355 [place] 8 8 [facility] T VISIT LIMITED/M INOR PROB HOSPITAL [place] - 8 8 [facility] T EMERGENCY 72208 [place] 8 8 [facility] T VISIT LOW/MODER SEVERITY [facility]PITAL [facility] - 8 8 [facility] T OFFICE 94573 ABEL ROMAN OUTPATIEN 8 8 DON R DON R T VISIT 15 MINUTES EMERGENCY 48065 [place] 8 8 [facility] T VISIT MODERATE SEVERITY [facility] - 8 8 [facility] T OFFICE 99579 ABEL ROMAN OUTPATIEN 8 8 DON R DON R T VISIT 15 MINUTES EMERGENCY 48361 [place] CASTANEDA, 8 8 [facility] T VISIT PROF SERV LOW/MODER SEVERITY EMERGENCY 69695 [place] 8 8 [facility] T VISIT LIMITED/M INOR PROB [facility]OSPITAL [place] - 8 8 [facility] INC T OFFICE 91108 ABEL ROMAN OUTPATIEN 8 8 [facility] [place] T VISIT 25 MINUTES HOSPITAL [facility] INC T EMERGENCY 07160 [place] 8 8 [facility] T VISIT LOW/MODER SEVERITY
--- OUTSIDE RECORDS SUMMARY | 2017-03-04 00:41 | External Medical Summary Rpt ---
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 NON-AUTO MICRSCPY CULTURE 17152 [facility] HAR[facility]L CHLAMYDIA 6 PHYSICIAN DOMI ANY S GROUP SOURCE BLOOD 48645 [facility] OCCULT 6 PHYSICIAN DOMI PEROXIDAS S GROUP E ACTV QUAL FECES 1-3 [facility] G0463 LEELEE MCKOY OUTPATIEN 6 [facility] T CLIN INC INC VISIT ASSESS & MGMT PT PROF [facility] 20438 ALLERGY MAS MAR ALLG 6 PARTNERS IMMNTX X OF FERNANDEZ W/PRV CO ALLGIC XTRCS NJXS PREPJ& 13601 ALLERGY MAS MAR ALLERGEN 6 PARTNERS IMMUNOTHE OF FERNANDEZ RAPY CO 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- 46044 [facility] AIDED 6 MEDICAL DETECTION IMAGING ASS SCREENING MAMMOGRAP HY SCREENING G0202 [place] [address] MEDICAL MAMMOGRAP IMAGING HY YOLANDA ASS INCL CAD WHEN PERFORMD SPACR A4627 [facility] AUD BAG/RESRV 6 EQUIPMENT OR W/WO INC MASK W/METRD DOSE INHAL MRI 71917 LEELEE MCKOY SPINAL 6 [facility] CANAL INC INC LUMBAR W/O CONTRAST MATERIAL 3D 48700 [place] [facility] ALL RENDERING 6 MEDICAL W/INTERP IMAGING & ASS POSTPROCE SS SUPERVISI ON DRUG TST G0477 LEELEE MCKOY PRESUMP;C 6 [facility] PBL BEING INC INC READ DC OPT OBV ONLY THERAPEUT 68269 LEELEE MCKOY IC PX 1/> 6 [facility] AREAS INC INC EACH 15 MIN EXERCISES APPL 75822 LEELEE MONTEMAYORON MODALITY 6 [facility] 1/> AREAS INC INC ELEC STIMJ UNATTENDE D APPLICATI 41881 LEELEE MCKOY ON 6 [facility] MODALITY INC INC 1/> AREAS HOT/COLD PACKS UNCLASSIF J3490 LEELEE MCKOY IED DRUGS 6 [facility] INC INC APPLICATI 37352 LEELEE LEELEE ON 6 [facility] MODALITY INC INC 1/> AREAS HOT/COLD PACKS APPL 26257 LEELEE LEELEE MODALITY 6 [facility] 1/> AREAS INC INC ELEC STIMJ UNATTENDE D APPL 66737 LEELEE LEELEE MODALITY 6 [facility] 1/> AREAS INC INC IONTOPHOR ESIS EA 15 MIN THERAPEUT 56198 LEELEE MCKOY IC PX 1/> 6 [facility] AREAS INC INC EACH 15 MIN EXERCISES PHYSICAL 10852 LEELEE MCKOY THERAPY 6 [facility] EVALUATIO INC INC N RADEX 94438 [facility] [place] JUDY ELBOW 6 RADIOLOGY RHO COMPLETE MINIMUM 3 VIEWS RADEX 93472 [facility] [place] SCALF SADIQ ELBOW 6 RADIOLOGY COMPLETE MINIMUM 3 VIEWS RADEX 87120 [facility] [place]AL[place] SADIQ FOREARM 2 6 RADIOLOGY VIEWS NEEDLE 95831 [facility] EMG EA 6 N EXTREMTY NEUROLOGY W/PARASPI NL AREA COMPLETE NERVE 14258 [facility] CONDUCTIO 6 N N STUDIES NEUROLOGY 5-6 STUDIES CULTURE 71233 LEELEE MCKOY BACTERIAL 5 [facility] INC INC QUANTTATI VE COLONY COUNT URINE COMPREHEN 92197 LEELEE MCKOY SIVE 5 [facility] [place] [address] LEELEE MCKOY LIPASE 5 [place] [address] LEELEE MCKOY MAGNESIUM 5 [facility] INC INC URNLS DIP 39453 LEELEE MCKOY 5 [facility] STICK/TAB INC INC LET REAGENT AUTO MICROSCOP Y BLOOD 29953 LEELEE LEELEE COUNT 5 [facility] COMPLETE INC INC AUTO&AUTO DIFRNTL WBC E-STIM G0283 LEELEE LEELEE 1/> AREAS 5 [facility] OTH THAN INC INC WND CARE PART TX PLAN THERAPEUT 12966 LEELEE LEELEE IC PX 1/> 5 [facility] AREAS INC INC EACH 15 MIN EXERCISES APPLICATI 36944 LEELEE MCKOY ON 5 [facility] MODALITY INC INC 1/> AREAS HOT/COLD PACKS APPLICATI 84833 LEELEE LEELEE ON 5 [facility] MODALITY INC INC 1/> AREAS HOT/COLD PACKS THERAPEUT 11224 LEELEE LEELEE IC PX 1/> 5 [facility] AREAS INC INC EACH 15 MIN EXERCISES E-STIM G0283 LEELEE LEELEE 1/> AREAS 5 [facility] OTH THAN INC INC WND CARE PART TX PLAN PHYSICAL 37916 LEELEE MCKOY THERAPY 5 [facility] EVALUATIO INC INC N SHOULDER L3650 [facility] 5 TECHNOLOG TECHNOLOG FIG 8 IES INC IES INC ABDUCT RESTRAINE R PREFAB RADEX 42832 [place] 5 MEDICAL ENEIDA COMPLETE IMAGING MINIMUM 3 ASS VIEWS INJ J0702 A C KILPELA BETAMETHA 5 RUIZ BOUDREAUX SONE PSC ACETATE & PHOSPHATE 3 MG INJECTION J1885 A C KILPELA 5 RUIZ BOUDREAUX KETOROLAC PSC TROMETHAM INE PER 15 MG THERAPEUT 49798 A C KILPELA IC 5 RUIZ BOUDREAUX PROPHYLAC PSC TIC/DX INJECTION SUBQ/IM URINLS 15133 A C KEMIPELA DIP 5 RUIZ BOUDREAUX STICK/TAB PSC LET REAGNT NON-AUTO MICRSCPY CULTURE 69545 [facility] BCT 5 DIAGNOSTI DIAGNOSTI ISOL&PRSM CS CS PTV ID ISOLATE EA URINE CULTURE 51963 [facility] BACTERIAL 5 DIAGNOSTI DIAGNOSTI CS CS QUANTTATI VE COLONY COUNT URINE INJECTION J1885 [facility] FRYMAN 5 PHYSICIAN EUG KETOROLAC S GROUP TROMETHAM INE PER 15 MG THERAPEUT 65220 [facility] FRYMAN IC 5 PHYSICIAN EUG PROPHYLAC S GROUP TIC/DX INJECTION SUBQ/IM IAADIADOO 00363 [facility] FRYMAN 4 PHYSICIAN EUG INFLUENZA S GROUP COMPREHEN 00748 LEELEE MCKOY SIVE 4 [facility] METABOLIC INC INC PANEL BLOOD 87298 LEELEE MCKOY COUNT 4 [facility] COMPLETE INC INC AUTO&AUTO DIFRNTL WBC APPL 87833 LEELEE MCKOY MODALITY 4 [facility] 1/> AREAS INC INC ELEC STIMJ UNATTENDE D APPL 00177 LEELEE MCKOY MODALITY 4 [facility] 1/> AREAS INC INC ULTRASOUN D EA 15 MIN APPLICATI 98782 LEELEE MCKOY ON 4 [facility] MODALITY INC INC 1/> AREAS HOT/COLD PACKS INJECTION J2550 [facility] KEVAN 4 PHYSICIAN LACEY PROMETHAZ S GROUP INE HCL UP TO 50 MG THERAPEUT 39358 [facility] KEVAN IC 4 PHYSICIAN LACEY PROPHYLAC S GROUP TIC/DX INJECTION SUBQ/IM THERAPEUT 24684 LEELEE MCKOY IC PX 1/> 4 [facility] AREAS INC INC EACH 15 MIN EXERCISES APPL 62953 LEELEE MCKOY MODALITY 4 [facility] 1/> AREAS INC INC ELEC STIMJ UNATTENDE D APPL 17242 LEELEE MCKOY MODALITY 4 [facility] 1/> AREAS INC INC ULTRASOUN D EA 15 MIN APPLICATI 96947 LEELEE MCKOY ON 4 [facility] MODALITY INC INC 1/> AREAS HOT/COLD PACKS APPLICATI 11099 LEELEE MCKOY ON 4 [facility] MODALITY INC INC 1/> AREAS HOT/COLD PACKS APPL 94161 LEELEE MCKOY MODALITY 4 [facility] 1/> AREAS INC INC ULTRASOUN D EA 15 MIN THERAPEUT 56326 LEELEE MCKOY IC PX 1/> 4 [facility] AREAS INC INC EACH 15 MIN EXERCISES APPL 69611 LEELEE MCKOY MODALITY 4 [facility] 1/> AREAS INC INC ELEC STIMJ UNATTENDE D APPL 27029 LEELEE MCKOY MODALITY 4 [facility] 1/> AREAS INC INC ELEC STIMJ UNATTENDE D THERAPEUT 22994 LEELEE MCKOY IC PX 1/> 4 [facility] AREAS INC INC EACH 15 MIN EXERCISES APPL 72619 LEELEE MCKOY MODALITY 4 [facility] 1/> AREAS INC INC ULTRASOUN D EA 15 MIN APPLICATI 08331 LEELEE MCKOY ON 4 [facility] MODALITY INC INC 1/> AREAS HOT/COLD PACKS APPLICATI 29845 LEELEE MCKOY ON 4 [facility] MODALITY INC INC 1/> AREAS HOT/COLD PACKS APPL 68954 LEELEE MCKOY MODALITY 4 [facility] 1/> AREAS INC INC ULTRASOUN D EA 15 MIN THERAPEUT 01406 LEELEE MCKOY IC PX 1/> 4 [facility] AREAS INC INC EACH 15 MIN EXERCISES APPL 30728 LEELEE MCKOY MODALITY 4 [facility] 1/> AREAS INC INC ELEC STIMJ UNATTENDE D APPL 13522 LEELEE MCKOY MODALITY 4 [facility] 1/> AREAS INC INC ELEC STIMJ UNATTENDE D THERAPEUT 18561 LEELEE MCKOY IC PX 1/> 4 [facility] AREAS INC INC EACH 15 MIN EXERCISES APPL 43307 LEELEE MCKOY MODALITY 4 [facility] 1/> AREAS INC INC ULTRASOUN D EA 15 MIN APPLICATI 40345 LEELEE MCKOY ON 4 [facility] MODALITY INC INC 1/> AREAS HOT/COLD PACKS APPLICATI 58504 LEELEE MCKOY ON 4 [facility] MODALITY INC INC 1/> AREAS HOT/COLD PACKS APPL 26121 LEELEE MCKOY MODALITY 4 [facility] 1/> AREAS INC INC ULTRASOUN D EA 15 MIN THERAPEUT 21027 LEELEE MCKOY IC PX 1/> 4 [facility] AREAS INC INC EACH 15 MIN EXERCISES APPL 01913 LEELEE MCKOY MODALITY 4 [facility] 1/> AREAS INC INC ELEC STIMJ UNATTENDE D APPL 37250 LEELEE MCKOY MODALITY 4 [facility] 1/> AREAS INC INC ELEC STIMJ UNATTENDE D THERAPEUT 66598 LEELEE MCKOY IC PX 1/> 4 [facility] AREAS INC INC EACH 15 MIN EXERCISES APPLICATI 86430 LEELEE MCKOY ON 4 [facility] MODALITY INC INC 1/> AREAS HOT/COLD PACKS PHYSICAL 44996 LEELEE MCKOY THERAPY 4 [facility] EVALUATIO INC INC N RADEX 78246 [facility] SPINE 4 MEDICAL MARCELLE LUMBOSACR IMAGING AL ASS MINIMUM 4 VIEWS THERAPEUT 56999 A Timi MENENDEZ IC 4 RUIZ BOUDREAUX PROPHYLAC PSC TIC/DX INJECTION SUBQ/IM URINLS 10752 A Timi MENENDEZ DIP 4 RUIZ GARRETT JEZuri STICK/TAB PSC LET REAGNT NON-AUTO MICRSCPY CULTURE 71871 [facility] BACTERIAL 4 DIAGNOSTI DIAGNOSTI CS QUANTTATI VE COLONY COUNT URINE INJECTION J2550 [facility] KEVAN 4 PHYSICIAN LACEY PROMETHAZ S GROUP INE HCL UP TO 50 MG INJECTION J1885 [facility] KEVAN 4 PHYSICIAN LACEY KETOROLAC S GROUP TROMETHAM INE PER 15 MG INJECTION J1200 [facility] KEVAN 4 PHYSICIAN LACEY DIPHENHYD S GROUP RAMINE HCL UP TO 50 MG THERAPEUT 52542 [facility] KEVAN IC 4 PHYSICIAN LACEY PROPHYLAC S GROUP TIC/DX INJECTION SUBQ/IM BLOOD 38259 RUIZ MELCHOR A COUNT 4 COMPLETE AUTO&AUTO DIFRNTL WBC BLOOD 24505 LEELEE MCKOY OCCULT 4 [facility] PEROXIDAS INC INC E ACTV QUAL FECES 1-3 SPEC SMR PRIM 38229 LEELEE LEELEE SRC 4 [facility] GRAM/GIEM INC INC SA STAIN BCT FUNGI/LIAM L GLUCOSE 22249 FIELD AMB FIELD AMB QUANTITAT 4 GAETANO [place] [address] [facility] THYROID 4 MED CTR, MED CTR, STIMULATI ATTN: ATTN: NG EVA DENMarco Antonio HORMONE TSH COMPREHEN 22677 [facility] SIVE 4 MED CTR, MED CTR, METABOLIC ATTN: ATTN: PANEL DENE DENE BLOOD 60442 [facility] COUNT 4 MED CTR, MED CTR, COMPLETE ATTN: ATTN: AUTO&AUTO DENE DENE DIFRNTL WBC INJECTION J1885 CHELO CHELO 4 [facility]RAD CONRAD KETOROLAC TROMETHAM INE PER 15 MG INJECTION J1200 CHELO CHELO 4 CONRAD CONRAD DIPHENHYD RAMINE HCL UP TO 50 MG THERAPEUT 81260 CHELO CHELO IC 4 CONRAD CONRAD PROPHYLAC TIC/DX INJECTION SUBQ/IM INJECTION J2550 CHELO CHELO 4 CONRAD CONRAD PROMETHAZ INE HCL UP TO 50 MG INJECTION J1030 KILPELA KILPELA 4 JEA JEA METHYLPRE DNISOLONE ACETATE 40 MG INJ J0702 KILPELA KILPELA BETAMETHA 4 JEA JEA SONE ACETATE & PHOSPHATE 3 MG THERAPEUT 08925 KILPELA KILPELA IC 4 JEA JEA PROPHYLAC TIC/DX INJECTION SUBQ/IM INJECTION J1030 KILPELA KILPELA 4 JEA JEA METHYLPRE DNISOLONE ACETATE 40 MG INJ J0702 KILPELA KILPELA BETAMETHA 4 JEA JEA SONE ACETATE & PHOSPHATE 3 MG THERAPEUT 50015 KILPELA KILPELA IC 4 JEA JEA PROPHYLAC TIC/DX INJECTION SUBQ/IM THERAPEUT 78146 MARTHA THOMAS SEFERINO IC 4 PROPHYLAC TIC/DX INJECTION SUBQ/IM INJECTION J2550 MARTHA GENTILE 4 PROMETHAZ INE HCL UP TO 50 MG INJECTION J1885 MARTHA GENTILE MARTHA SEFERINO 4 KETOROLAC TROMETHAM INE PER 15 MG NONINVASI 26200 FIELD AMB FIELD AMB VE 4 EAR/PULSE OXIMETRY SINGLE DETER THERAPEUT 21725 FIELD AMB FIELD AMB IC 4 PROPHYLAC TIC/DX INJECTION SUBQ/IM INJECTION J1885 FIELD AMB FIELD AMB 4 KETOROLAC TROMETHAM INE PER 15 MG INJECTION J1885 MARTHA GENTILE MARTHA SEFERINO 3 KETOROLAC TROMETHAM INE PER 15 MG THERAPEUT 08054 MARTHA THOMAS SEFERINO IC 3 PROPHYLAC TIC/DX INJECTION SUBQ/IM INJECTION J1040 MARTHA THOMAS SEFERINO 3 METHYLPRE DNISOLONE ACETATE 80 MG IIV3 75855 FIELD AMB FIELD AMB VACCINE 3 SPLIT VIRUS 0.5 ML DOSAGE IM USE THERAPEUT 34602 FIELD AMB FIELD AMB IC 3 PROPHYLAC TIC/DX INJECTION SUBQ/IM INJ J0702 FIELD AMB FIELD AMB BETAMETHA 3 SONE ACETATE & PHOSPHATE 3 MG IM ADM 00035 FIELD AMB FIELD AMB PRQ ID 3 SUBQ/IM [place] 1 [place] [address] NADIRA WADDELL PAT SURG 3 PATHOLOGY GROSS&LACEY ROSCOPIC EXAM ANES 63637 NATALIO LANCE UPPER GI 3 CONRAD CONRAD ENDOSCOPY PROXIMAL TO DUODENUM SPECIAL 80664 NADIRA WADDELL PAT STAIN 3 GROUP 1 MICROORGA NISMS I&R SPCL STN 51651 NADIRA ARUN NADIRA PAT 2 I&R 3 EXCPT MICROORG/ ENZYME/IM CYT EGD 81320 [place] ROJAS STEVE TRANSORAL 3 MEDICAL BIOPSY SERV SINGLE/MU FOUNDATIO LTIPLE N CUL 92304 LEELEE MCKOY PRSMPTV 3 [facility] PTHGNC INC INC ORGANISMS SCR DNS CHART THERAPEUT 15165 FIELD AMB FIELD AMB IC 3 PROPHYLAC TIC/DX INJECTION SUBQ/IM INJECTION J1885 FIELD AMB FIELD AMB 3 KETOROLAC TROMETHAM INE PER 15 MG BLOOD 44294 A C RUIZ A COUNT 3 RUIZ GARRETT COMPLETE PSC AUTO&AUTO DIFRNTL WBC COLLECTIO 34361 Zuri Keating N VENOUS 3 RUIZ GARRETT BLOOD PSC VENIPUNCT URE SMR PRIM 57752 LEELEE MCKOY SRC 3 [facility] GRAM/GIEM INC INC SA STAIN BCT FUNGI/LIAM L OVA&JULIO C 60000 LEELEE MCKOY ITES 3 [facility] DIRECT INC INC SMEARS CONCENTRA TION & [place] [address] LEELEE MCKOY GIARDIA 3 [place] [address] LEELEE MCKOY CLOSTRIDI 3 [facility] [place] [address] LEELEE MCKOY LIPASE 3 [facility] INC INC CUL BACT 09398 LEELEE MCKOY STOOL 3 [facility] AEROBIC INC INC ISOL SALMONELL A&SHIGELL COMPREHEN 88875 LEELEE MCKOY SIVE 3 [facility] [place] [address] LEELEE MCKOY AMYLASE 3 [place] [address] LEELEE MCKOY GAMMAGLOB 3 [facility] ULIN IGA INC INC IGD IGG IGM EACH FLUORESCE 51366 LEELEE MCKOY NT 3 [facility] NONNFCT INC INC AGT ANTB TITER EA ANTIBODY BLOOD 65028 LEELEE MCKOY COUNT 3 [facility] COMPLETE INC INC AUTO&AUTO DIFRNTL WBC THERAPEUT 98981 FAMILY FAMILY IC 3 CARE CARE PROPHYLAC ASSOCIATE ASSOCIATE TIC/DX S S INJECTION SUBQ/IM BLOOD 13337 FAMILY FAMILY COUNT 3 CARE CARE COMPLETE ASSOCIATE ASSOCIATE AUTO&AUTO S S DIFRNTL WBC INJECTION J2550 FAMILY FAMILY 3 CARE CARE PROMETHAZ ASSOCIATE ASSOCIATE INE HCL S S UP TO 50 MG ARTHROCEN 83146 PETTEY PETTEY TESIS 3 JAM JAM ASPIR&/IN J MAJOR JT/BURSA W/O US INJ J0702 PETTEY PETTEY BETAMETHA 3 JAM JAM SONE ACETATE & PHOSPHATE 3 MG RADIOLOGI 28231 ABEL KITCHENS C 3 DON DON EXAMINATI ON KNEE 1/2 VIEWS HEMOGLOBI 64131 COMBINED COMBINED N 3 PHYSICIAN PHYSICIAN GLYCOSYLA S LA S LA CLAIRE A1C LIPID 46554 COMBINED COMBINED PANEL 3 PHYSICIAN PHYSICIAN S LA S LA COMPREHEN 60251 COMBINED COMBINED SIVE 3 PHYSICIAN PHYSICIAN METABOLIC S LA S LA PANEL ARTHROCEN 52383 PETTEY PETTEY TESIS 3 JAM JAM ASPIR&/IN J MAJOR JT/BURSA W/O US INJ J0702 PETTEY PETTEY BETAMETHA 3 JAM JAM SONE ACETATE & PHOSPHATE 3 MG THERAPEUT 11016 LEELEE MCKOY IC PX 1/> 3 [facility] AREAS INC INC EACH 15 MIN EXERCISES THERAPEUT 46023 LEELEE MONTEMAYORON IC PX 1/> 3 [facility] AREAS INC INC EACH 15 MIN EXERCISES PHYSICAL 83799 LEELEE MCKOY THERAPY 3 [facility] EVALUATIO INC INC N ARTHROCEN 85618 PETTEY PETTEY TESIS 3 JAM JAM ASPIR&/IN J MAJOR JT/BURSA W/O US INJ J0702 PETTEY PETTEY BETAMETHA 3 JAM JAM SONE ACETATE & PHOSPHATE 3 MG RADEX 25170 IZAIAH IZAIAH SHOULDER 3 MARCELLE MARCELLE COMPLETE MINIMUM 2 VIEWS IAADIADOO 55263 ABEL KITCHENS 3 DON DON INFLUENZA INJECTION J2405 LEELEE MONTEMAYORON 2 [facility] ONDANSETR INC INC ON HCL PER 1 MG COMPREHEN 35954 LEELEE MCKOY SIVE 2 [facility] [place] [address] LEELEE MCKOY AMYLASE 2 [place] [address] LEELEE MCKOY LIPASE 2 [facility] INC INC URINE 42582 L[facility]CKOY [facility] TEST INC [place] [address] LEELEE MCKOY INFUSION 2 [facility] THERAPY/P INC INC ROPHYLAXI S /DX 1ST TO 1 HR BLOOD 68746 LEELEE MCKOY COUNT 2 [facility] COMPLETE INC INC AUTO&AUTO DIFRNTL WBC THERAPEUT 44204 LEELEE MCKOY IC 2 [facility] INJECTION INC INC IV PUSH EACH NEW DRUG CHEMODENE 71263 [facility] RVATION 2 DOMI DOMI NECK MUSCLE BOTULINUM J0585 [facility] TOXIN 2 DOMI DOMI TYPE A PER UNIT CHEMODNRV 62000 [facility] TJ MUSC 2 DOMI DOMI MUSC INNERVATE D FACIAL NRV UNIL IAADIADOO 19083 ROMAN ROMAN 2 DON DON STREPTOCO CCUS GROUP A IAADIADOO 46201 ROMAN ROMAN 2 DON DON STREPTOCO CCUS GROUP A IAADIADOO 63269 ROMAN ROMAN 2 DON DON STREPTOCO CCUS GROUP A URNLS DIP 71863 ROMAN ROMAN 2 DON DON STICK/TAB LET RGNT NON-AUTO W/O MICRSCP URNLS DIP 14574 ROMAN ROMAN 2 DON DON STICK/TAB LET RGNT NON-AUTO W/O MICRSCP URNLS DIP 42866 ROMAN ROMAN 2 DON DON STICK/TAB LET RGNT NON-AUTO W/O MICRSCP URNLS DIP 10476 ROMAN ROMAN 2 DON DON STICK/TAB LET RGNT NON-AUTO W/O MICRSCP URNLS DIP 96889 ROMAN ROMAN 2 DON DON STICK/TAB LET RGNT NON-AUTO W/O MICRSCP URNLS DIP 00002 ROMAN ROMAN 2 DON DON STICK/TAB LET RGNT NON-AUTO W/O MICRSCP URNLS DIP 00835 LEE[facility]E MCKOY 2 [facility] STICK/TAB INC INC LET REAGENT AUTO MICROSCOP Y HEMOGLOBI 32168 COMBINED COMBINED N 2 PHYSICIAN PHYSICIAN CARLOS ENRIQUE STOREY S LA CLAIRE A1C CHEMODENE 76695 [facility] RVATION 2 DOMI DOMI NECK MUSCLE CHEMODENE 75670 [place] RVATION 2 DOMI DOMI ECCRINE GLANDS OTH AREA PER DAY CHEMODNRV 54724 [facility] TJ MUSC 2 DOMI DOMI MUSC INNERVATE D FACIAL NRV UNIL THERAPEUT 48226 LEELEE MCKOY IC 2 [facility] PROPHYLAC INC INC TIC/DX INJECTION SUBQ/[place] [address] LEELEE MCKOY LIPASE 2 [facility] INC INC COMPREHEN 53042 LEELEE MCKOY SIVE 2 [facility] [place] [address] LEELEE MCKOY AMYLASE 2 [facility] [place] [address] LEELEE LABONE INFUSION 2 [facility] INC CIRCULAR SAWYER HELPER THERAPY/P INC ROPHYLAXI S /DX 1ST TO 1 HR BLOOD 89306 LEELEE MCKOY COUNT 2 [facility] COMPLETE INC INC AUTO&AUTO DIFRNTL WBC THERAPEUT 92300 LEELEE MCKOY IC 2 [facility] INJECTION INC INC IV PUSH EACH NEW DRUG SCREENING G0202 [place] IZAIAH 2 MEDICAL MARCELLE MAMMOGRAP IMAGING HY YOLANDA ASS INCL CAD WHEN PERFORMD COMPUTER- 18303 [place] IZAIAH AIDED 2 MEDICAL MARCELLE DETECTION IMAGING ASS SCREENING MAMMOGRAP HY BLOOD 23298 ABEL ROMAN OCCULT 2 DON DON PEROXIDAS E ACTV QUAL FECES 1 DETER CYTP 56142 [facility] SLIDES 2 DIAGNOSTI DIAGNOSTI CERV/VAG CS CS MNL SCRN PHYSICIAN SUPV THERAPEUT 43673 LEELEE MCKOY IC 2 [facility] PROPHYLAC INC INC TIC/DX INJECTION SUBQ/IM URNLS DIP 31309 ROMAN ROMAN 2 DON DON STICK/TAB LET RGNT NON-AUTO W/O MICRSCP FIBRIN 20579 LEELEE MCKOY DGRADJ 2 [facility] PRODUCTS INC INC D-DIMER QUAL/SEMI [place] THERAPEUT 45793 LEELEE MCKOY IC 2 [facility] PROPHYLAC INC INC TIC/DX INJECTION SUBQ/IM THERAPEUT 92186 LEELEE MCKOY IC 2 [facility] PROPHYLAC INC INC TIC/DX INJECTION SUBQ/IM BASIC 05642 LEELEE MCKOY METABOLIC 2 [facility] PANEL INC INC CALCIUM TOTAL URNLS DIP 48001 LEELEE MCKOY 2 [facility] STICK/TAB INC INC LET REAGENT AUTO MICROSCOP Y BLOOD 09390 LEELEE MCKOY COUNT 2 [facility] COMPLETE INC INC AUTO&AUTO DIFRNTL WBC THERAPEUT 99494 LEELEE MCKOY IC 2 [facility] PROPHYLAC INC INC TIC/DX INJECTION SUBQ/[place] [address] LEELEE MCKOY INFUSION 1 [facility] THERAPY/P INC INC ROPHYLAXI S /DX 1ST TO 1 HR URNLS DIP 95551 LEELEE MCKOY 1 [facility] STICK/TAB INC INC LET REAGENT AUTO MICROSCOP Y BLOOD 52316 LEELEE MCKOY COUNT 1 [facility] COMPLETE INC INC AUTO&AUTO DIFRNTL WBC BASIC 48742 LEELEE MCKOY METABOLIC 1 [facility] PANEL INC INC CALCIUM TOTAL OPHTH 45520 SALLY CASILLAS OLAYINKA MEDICAL 1 VISION XM&EVAL COMPRE NEW PT 1/> VST COMPUTERI 30420 SALLY CASILLAS OLAYINKA ZED 1 VISION OPHTHALMI C IMAGING OPTIC NERVE SEDIMENTA 42400 LEELEE LEELEE TION RATE 1 [facility] RBC INC INC NON-AUTOM ATED 3D 17165 LINNETTENury IZAIAH RENDERING 1 [facility]ICAL [facility] W/INTERP IMAGING & [place] [address] LINNETTENury IZAIAH HEAD/BRAI 1 [facility] N W/O IMAGING CONTRAST ASS MATERIAL BLOOD 74860 LEELEE MCKOY COUNT 1 [facility] COMPLETE INC INC AUTO&AUTO DIFRNTL WBC COMPREHEN 80284 LEELEE MCKOY SIVE 1 [facility] METABOLIC INC INC PANEL URNLS DIP 77481 LEELEE MCKOY 1 [facility] STICK/TAB INC INC LET REAGENT AUTO MICROSCOP Y URNLS DIP 88153 LEELEE MCKOY 1 [facility] STICK/TAB INC INC LET REAGENT AUTO MICROSCOP Y BLOOD 77815 LEELEE MCKOY COUNT 1 [facility] COMPLETE INC INC AUTO&[place] [address] LEELEEJOSEFINA MCKOY LIPASE 1 [facility] INC INC COMPREHEN 85216 LEELEE MCKOY SIVE 1 [facility] [address] LEELEE MCKOY AMYLASE 1 [facility] INC INC COMPREHEN 73229 LEELEE MCKOY SIVE 1 [facility] METABOLIC INC INC PANEL URNLS DIP 87371 LEELEE MCKOY 1 [facility] STICK/TAB INC INC LET REAGENT AUTO MICROSCOP Y BLOOD 46658 LEELEEJOSEFINA MCKOY COUNT 1 [facility] COMPLETE INC INC AUTO&AUTO DIFRNTL WBC APPLICATI 77906 LEELEE MCKOY ON 1 [facility] MODALITY INC INC 1/> AREAS HOT/COLD PACKS PHYSICAL 62317 LEELEE MCKOY THERAPY 1 [facility] EVALUATIO INC INC N THERAPEUT 99691 LEELEE MCKOY IC PX 1/> 1 [facility] AREAS INC INC EACH 15 MIN EXERCISES APPL 32656 LEELEE MCKOY MODALITY 1 [facility] 1/> AREAS INC INC ELEC STIMJ UNATTENDE D RADEX 29995 LEELEE MCKOY SPINE 1 [facility] CERVICAL INC INC 6 OR MORE VIEWS RADEX 49445 [place] IZAIAH SPINE 1 [facility] CERVICAL IMAGING 4 OR 5 ASS VIEWS IAADIADOO 32446 ROMAN ROMAN 0 [place] [address] [place] HEAD/BRAI 0 MEDICAL MARCELLE N W/O IMAGING CONTRAST ASS MATERIAL 3D 14204 LEELEE MCKOY RENDERING 0 [facility] W/INTERP INC INC & POSTPROCE SS [place]PERVIS[place] ON OBSERVATI 10507 ABEL ROMAN ON CARE 0 DON DON DISCHARGE MANAGEMEN T INITIAL 19997 SNEHAL ROJAS STEVE INPATIENT 0 MEDICAL CONSULT SERV NEW/ESTAB FOUNDATIO PT 55 MIN RADEX ABD 18192 [place] FAIZAN COMPL 0 MEDICAL [place]OS[place] AQT ABD IMAGING W/S/E/D ASS VIEWS 1 VIEW CH INITIAL 15509 ABEL ROMAN OBSERVATI 0 DON DON ON CARE/DAY 50 MINUTES URNLS DIP 54093 [facility]E MCKOY 0 [facility] STICK/TAB INC INC LET REAGENT AUTO MICROSCOP Y BLOOD 28881 LEELEE MCKOY COUNT 0 [facility] COMPLETE INC INC AUTO&AUTO DIFRNTL WBC URINE 09630 LEELEE MCKOY 0 [facility] TEST INC INC VISUAL COLOR CMPRSN METHS RADEX ABD 71263 [facility] COMPL 0 MEDICAL JOSIE AQT ABD IMAGING W/S/E/D ASS VIEWS 1 [place] [address] LEELEE MCKOY LIPASE 0 [facility] INC INC COMPREHEN 13792 LEELEE MCKOY SIVE 0 [facility] [place] [address] LEELEE MCKOY AMYLASE 0 [place] [address] LEELEE MCKOY INFUSION 0 [facility] THERAPY/P INC INC ROPHYLAXI S /DX 1ST TO 1 HR INCISION 70138 JOSE MARIA ÁLVAREZ & 0 EMERGENCY III [employer] ABSCESS COMPLICAT ED/MULTIP LE SUSCEPTIB 07476 LEELEE MCKOY LTY STDY 0 [facility] ANTIMICRB INC INC IAL MICRO/AGA R DILUTJ CUL BACT 58295 LEELEE MCKOY XCPT 0 [facility] URINE INC INC BLOOD/STO OL AEROBIC ISOL CUL BACT 47674 LEELEE MCKOY AEROBIC 0 [facility] ADDL INC INC [facility] DEFINITIV E EA ISOL OTH 8604 [facility] MCKOY INCISION 0 [facility] W/DRAINAG INC INC E SKIN&SUBC UTANEOUS TISSUE MRI 57310 SOLANGE C IZAIAH SPINAL 0 IZAIAH MARCELLE CANAL LUMBAR W/O CONTRAST MATERIAL 3D 97120 SOLANGE C IZAIAH RENDERING 0 IZAIAH MARCELLE W/INTERP & [place] [address] GAVIN IZAIAH, RETROPERI 0 MEDICAL [facility] TONEAL IMAGING REAL TIME [place]OCI[place] [address] LEELEEJOSEFINA MONTEMAYORON INFUSION 0 [facility] THERAPY/P INC INC ROPHYLAXI S /DX 1ST TO 1 HR INCISION 95636 JOSE MARIA ÁLVAREZ & 0 EMERGENCY III, DRAINAGE SERVICES ANGELIQUE ABSCESS COMPLICAT ASSOCIATE ED/MULTIP S LE SUSCEPTIB 98853 LEELEE LEELEE LTY STDY 0 [facility] ANTIMICRB INC INC IAL MICRO/AGA R DILUTJ BLOOD 43562 LEELEE MCKOY COUNT 0 [facility] COMPLETE INC INC AUTO&AUTO DIFRNTL WBC URNLS DIP 43417 [facility] MCKOY 0 [facility] STICK/TAB INC INC LET REAGENT AUTO MICROSCOP Y CUL BACT 78686 LEELEE MONTEMAYORON AEROBIC 0 [facility] ADDL INC INC METHS DEFINITIV E EA ISOL CUL BACT 97448 LEELEE MCKOY XCPT 0 [facility] URINE INC INC BLOOD/STO OL AEROBIC ISOL 3D 83154 GAVIN IZAIAH, RENDERING 0 MEDICAL [facility] IMAGING W/INTERP& ASSOCIATE POSTPROC S DIFF WORK STATION CT PELVIS 99046 GAVIN IZAIAH, W/O 0 MEDICAL [facility] CONTRAST [place] [address] LEELEE MCKOY LIPASE 0 [facility] INC INC COMPREHEN 86926 LEELEE MCKOY SIVE 0 [facility] [place] [address] LEELEE MCKOY AMYLASE 0 [facility] [place] [address] GAVIN IZAIAH, ABDOMEN 0 MEDICAL [facility] W/O IMAGING CONTRAST ASSOCIATE MATERIAL S OTH 8604 LEELEE MCKOY INCISION 0 [facility] W/DRAINAG INC INC E SKIN&SUBC UTANEOUS TISSUE RADEX 88404 ROMAN, ROMAN, SPINE 0 DON R DON R LUMBOSACR AL MINIM[place] 4 [place] [address] LEELEE MCKOY STREPTOCO 0 [facility] [place] [address] LEELEE MCKOY INFUSION 0 [facility] THERAPY/P INC INC ROPHYLAXI S /DX 1ST TO 1 HR URNLS DIP 14787 [facility] MCKOY 0 [facility] STICK/TAB INC INC LET REAGENT AUTO MICROSCOP Y CULTURE 90213 LEELEE MCKOY BACTERIAL 0 [facility] INC INC QUANTTATI VE COLONY COUNT URINE BLOOD 04995 LEELEE MCKOY COUNT 9 [facility] COMPLETE INC INC AUTO&AUTO DIFRNTL WBC URNLS DIP 87798 [facility] MCKOY 9 [facility] STICK/TAB INC INC LET REAGENT AUTO MICROSCOP Y COMPREHEN 32164 [facility]E MCKOY SIVE 9 [facility] METABOLIC INC INC PANEL IAADI 51017 LEELEE MCKOY INFFLUENZ 9 [facility] A A VIRUS INC INC IAADI 55853 LEELEE MCKOY INFLUENZA 9 [facility] B VIRUS INC INC RADEX 73753 LEELEE MCKOY HAND 9 [facility] MINIMUM 3 INC INC VIEWS 3D 13956 LEELEE MCKOY RENDERING 9 [facility] W/INTERP INC INC & [place] [address] GAVIN BLISS, HEAD/BRAI 9 MEDICAL SOLANGE N W/O IMAGING CONTRAST ASSOCIATE MATERIAL S URNLS DIP 46056 [facility] MCKOY 9 [facility] STICK/TAB INC [place] [address] LEELEE MCKOY INFUSION 9 [facility] THERAPY/P INC INC ROPHYLAXI S /DX 1ST TO 1 HR RHYTHM 25410 LEELEE MCKOY ECG 1-3 9 [facility] LEADS INC INC TRACING ONLY W/O I&R URNLS DIP 43055 [facility]E MCKOY 9 [facility] STICK/TAB INC INC LET REAGENT AUTO MICROSCOP Y ECG 98853 LEELEE FREGOSOSON, ROUTINE 9 [facility] W/LEAST PROF SERV 12 LDS I&R ONLY BLOOD 82942 LEELEE MCKOY COUNT 9 [facility] COMPLETE INC INC AUTO&AUTO DIFRNTL WBC ECG 04196 LEELEE LEELEE ROUTINE 9 [facility] ECG INC INC W/LEAST 12 LDS TRCG ONLY W/O I&R COMPREHEN 37913 LEELEEJOSEFINA MCKOY SIVE 9 [facility] METABOLIC INC INC PANEL CULTURE 37799 LEELEE MCKOY BACTERIAL 9 [facility] INC INC QUANTTATI VE COLONY COUNT URINE URNLS DIP 79849 LEELEEJOSEFINA MCKOY 9 [facility] STICK/TAB INC INC [place] [address] LEELEE MCKOY LIPASE 9 [facility] INC INC COMPREHEN 34740 LEELEE MCKOY SIVE 9 [facility] METABOLIC INC INC PANEL URNLS DIP 19315 LEELEE LEELEE 9 [facility] STICK/TAB INC INC LET REAGENT AUTO MICROSCOP Y BLOOD 00499 LEELEE MCKOY COUNT 9 [facility] COMPLETE INC INC AUTO&[place] [address] LEELEE LEELEE AMYLASE 9 [facility] [place] [address] LEELEE MCKOY INFUSION 9 [facility] THERAPY/P INC INC ROPHYLAXI S /DX 1ST TO 1 HR URNLS DIP 48017 LEELEE MCKOY 9 [facility] STICK/TAB INC INC LET REAGENT AUTO MICROSCOP Y BLOOD 74909 LEELEE MCKOY COUNT 9 [facility] COMPLETE INC INC AUTO&AUTO DIFRNTL WBC COMPREHEN 16163 LEELEE MCKOY SIVE 9 [facility] [place] [address] LEELEE MCKOY LIPASE 9 [place] [address] LEELEE MONTEMAYORON AMYLASE 9 [facility] INC INC BLOOD 39909 LEELEE MCKOY COUNT 9 [facility] COMPLETE INC INC AUTO&[place] [address] LEELEE MCKOY INFUSION 9 [facility] THERAPY/P INC INC ROPHYLAXI S /DX 1ST TO 1 HR URNLS DIP 55709 [facility]E MCKOY 9 [facility] STICK/TAB INC INC LET REAGENT AUTO MICROSCOP Y COMPREHEN 63573 LEELEE MCKOY SIVE 9 [facility] METABOLIC INC INC PANEL RADEX ABD 16213 LEELEE MCKOY COMPL 9 [facility] AQT ABD INC INC W/S/E/D VIEWS 1 VIEW CH URNLS DIP 69126 ABEL ROMAN, 9 DON R DON R STICK/TAB LET RGNT NON-[place] W/[place] [address] LEELEE MCKOY ABDOMEN 9 [facility] W/[place] [address] LEELEE LEELEE AMYLASE 9 [facility] INC INC BLOOD 61939 LEELEE LEELEE COUNT 9 [facility] COMPLETE INC INC AUTO&AUTO DIFRNTL WBC URNLS DIP 68048 [facility]E MCKOY 9 [facility] STICK/TAB INC INC LET REAGENT AUTO MICROSCOP Y COMPREHEN 63329 LEELEE MCKOY SIVE 9 [facility] [place] [address] LEELEE MCKOY LIPASE 9 [facility] INC INC 3D 58303 GAVIN BLISS, RENDERING 9 MEDICAL [facility] IMAGING W/INTERP& ASSOCIATE POSTPROC S DIFF WORK STATION CT PELVIS 22375 [facility] BLISS, W/O 9 MEDICAL [facility] CONTRAST IMAGING MATERIAL ASSOCIATE S RADEX 22782 GAVNI FAIZAN, FOOT 8 MEDICAL ZOË P COMPLETE IMAGING MINIMUM 3 ASSOCIATE VIEWS S RADEX 46512 LEELEE MCKOY ANKLE 8 [facility] COMPLETE INC INC MINIMUM 3 VIEWS RADEX 46274 LEELEE MCKOY SPINE 8 [facility] LUMBOSACR INC INC AL MINIMUM [address] PELVIS 29845 LEELEE MCKOY W/O & 8 [facility] W/[place] [address] LEELEE MCKOY ABDOMEN 8 [facility] W/O & INC INC W/CONTRAS T MATERIAL BASIC 50307 LEELEE MCKOY METABOLIC 8 [facility] PANEL INC INC CALCIUM TOTAL RADIOLOGI 23374 LEELEE MCKOY C 8 [facility] EXAMINATI INC INC ON PELVIS 1/2 VIEWS URNLS DIP 42729 L[facility]LEE MCKOY 8 [facility] STICK/TAB INC INC LET REAGENT AUTO MICROSCOP Y BLOOD 10474 LEELEE MCKOY COUNT 8 [facility] COMPLETE INC INC AUTO&AUTO DIFRNTL WBC 3D 88774 TITUS HAMILTON 8 MEDICAL [facility] IMAGING W/INTERP& ASSOCIATE POSTPROC S DIFF WORK STATION URNLS DIP 55149 ABEL ROMAN 8 DON R DON R STICK/TAB LET RGNT NON-AUTO W/O MICRSCP IAADI 12935 LEELEE MCKOY INFLUENZA 8 [facility] B VIRUS INC INC IAADI 39034 LEELEE MCKOY INFFLUENZ 8 [facility] A A VIRUS INC INC IAADIADOO 05528 ABEL ROMAN 8 DON R DON R STREPTOCO CCUS GROUP A BLOOD 67253 LEELEE MCKOY COUNT 8 [facility] COMPLETE INC INC AUTO&AUTO DIFRNTL WBC URNLS DIP 75711 L[facility]LEE MCKOY 8 [facility] STICK/TAB INC [place] [address] LEELEE MCKOY THER 8 [facility] PROPH/DX INC INC 1ST >1 HR COMPREHEN 76639 LEELEE MCKOY SIVE 8 [facility] METABOLIC INC INC PANEL IAADIADOO 13148 ABEL ROMAN 8 DON R DON R STREPTOCO CCUS GROUP A Encounters Encounter Start End Date Code Location Performer Type Date [facility] - 7 7 [facility] OUTPATIEN INC T OFFICE 63229 LEELEE OUTPATIEN 7 7 [facility] T VISIT 5 INC MINUTES OFFICE 89063 LAKSHMI BARLOWMILLIEN 7 7 T VISIT 15 MINUTES OFFICE 95411 LAKSHMI STEVEEN 7 7 T VISIT 15 MINUTES OFFICE 25352 LAKSHMI BARLOWBROOKLYN 7 7 T VISIT 25 MINUTES EMERGENCY 03357 KRISTINA BARRERA 7 7 PHYSICIAN [facility]k [facility] T VISIT MODERATE SEVERITY OFFICE 68521 LAKSHMI BARLOWBROOKLYN 7 7 T VISIT 15 MINUTES EMERGENCY 80144 KRISTINA MATHUR 7 7 PHYSICIAN [facility] T VISIT HIGH/URGE NT SEVERITY OFFICE 46541 LAKSHMI CUEVAS 6 6 T VISIT 15 MINUTES OFFICE 23953 LAKSHMI STEVEEN 6 6 SADIQ SADIQ T VISIT 15 MINUTES OFFICE 97770 JAZMINETAURUS LUCEROTAURUS OUTPATIEN 6 6 SADIQ SADIQ T VISIT 15 MINUTES OFFICE 01689 JAZMINETAURUS LAKSHMI OUTMILLIEN 6 6 SADIQ SADIQ T NEW 30 MINUTES OFFICE 88101 [facility] LA OUTPATIEN 6 6 PHYSICIAN DOMI T VISIT S GROUP 15 MINUTES [facility] - 6 6 [facility] OUTPATIEN INC T [facility] - 6 6 [facility] OUTPATIEN INC T INITIAL 47389 [facility] PRINCESSL PREVENTIV 6 6 PHYSICIAN DOMI E S GROUP MEDICINE NEW PATIENT 40-64YRS [facility] L[facility] - 6 6 [facility] OUTPATIEN INC T OFFICE 46746 IVONE PAYNE OUTPATIEN 6 6 MD MARY, T VISIT PSC 25 MINUTES [facility] - 6 6 [facility] OUTPATIEN INC T OFFICE 71052 [facility] KEVAN OUTPATIEN 6 6 PHYSICIAN LACEY T VISIT S GROUP 15 MINUTES OFFICE 55403 [facility] KEVAN OUTPATIEN 6 6 PHYSICIAN LACEY T VISIT S GROUP 15 MINUTES [facility]OSP[facility] - 6 6 [facility] - 6 6 [facility] OUTPATIEN [facility] T OFFICE 20103 [facility] KEVAN OUTPATIEN 6 6 PHYSICIAN LACEY T VISIT S GROUP 15 MINUTES OFFICE 36311 [facility] [address] OUTPATIEN 6 6 PHYSICIAN T VISIT S GROUP 15 MINUTES [facility] - 6 6 [facility] T OFFICE 00271 [facility] KEVAN OUTPATIEN 6 6 PHYSICIAN LACEY T VISIT S GROUP 10 MINUTES [facility] - 6 6 [facility] N OUTPATIEN COMMUNTIY T HOSPITA OFFICE 03308 [place] [facility] OUTPATIEN 6 6 ORTHOPEDI JEFF T VISIT C 15 ASSOCIAT MINUTES OFFICE 18894 [facility] JOCELYNE SCHMITZ OUTPATIEN 6 6 PHYSICIAN T VISIT S GROUP 15 MINUTES OFFICE 39474 [place] [facility] OUTPATIEN 6 6 ORTHOPEDI JEFF T NEW 45 C MINUTES [facility] - 6 6 [facility] T OFFICE 06109 [facility] KEVAN OUTPATIEN 6 6 PHYSICIAN LACEY T VISIT S GROUP 15 MINUTES OFFICE 06201 [facility] [address] OUTPATIEN 6 6 PHYSICIAN T VISIT S GROUP 10 MINUTES OFFICE 95014 [facility] KEVAN OUTPATIEN 5 5 PHYSICIAN LACEY T VISIT S GROUP 15 MINUTES EMERGENCY 64298 [facility] 5 5 PHYSICIAN LACEY DEPARTMEN S, PLLC T VISIT HIGH/URGE NT SEVERITY EMERGENCY 42306 [facility]E 5 5 [facility] DEPARTMEN INC T VISIT LOW/MODER SEVERITY [facility] - 5 5 [facility] OUTPATIEN INC T OFFICE 92511 [facility] KEVAN OUTPATIEN 5 5 PHYSICIAN LACEY T VISIT S GROUP 10 MINUTES OFFICE 73951 [facility] KEVAN OUTPATIEN 5 5 PHYSICIAN LACEY T VISIT S GROUP 15 MINUTES OFFICE 50305 [facility] PETTEY OUTPATIEN 5 5 PHYSICIAN JAM T VISIT S GROUP 15 MINUTES OFFICE 99838 [facility] KEVAN OUTPATIEN 5 5 PHYSICIAN LACEY T VISIT S GROUP 10 MINUTES [facility] - 5 5 [facility] OUTPATIEN INC T OFFICE 33214 [facility] KEVAN OUTPATIEN 5 5 PHYSICIAN LACEY T VISIT S GROUP 10 MINUTES EMERGENCY 66137 KRISTINA KEVAN 5 5 PHYSICIAN LACEY DEPARTMEN S, PLLC T VISIT MODERATE SEVERITY OFFICE 09609 IVONE HERNANDEZ ANJ OUTPATIEN 5 5 MD MARY, T NEW 30 PSC MINUTES [facility] - 5 5 [facility] OUTPATIEN INC T OFFICE 78289 [facility] OUTPATIEN 5 5 [facility] T VISIT INC 10 MINUTES OFFICE 94927 [facility] KEVAN OUTPATIEN 5 5 PHYSICIAN LACEY T VISIT S GROUP 10 MINUTES OFFICE 80143 SNEHAL EVERETT ANT OUTPATIEN 5 5 MEDICAL T VISIT SERV 25 FOUNDATIO MINUTES N OFFICE 08253 [facility] KEVAN OUTPATIEN 5 5 PHYSICIAN LACEY T VISIT S GROUP 15 MINUTES OFFICE 19011 [facility] KEVAN OUTPATIEN 5 5 PHYSICIAN LACEY T VISIT S GROUP 15 MINUTES EMERGENCY 44078 KRISTINA KEVAN 5 5 PHYSICIAN LACEY DEPARTMEN S, PLLC T VISIT MODERATE SEVERITY OFFICE 72804 [facility] KEVAN OUTPATIEN 5 5 PHYSICIAN LACEY T VISIT S GROUP 10 MINUTES OFFICE 87341 [facility] KEVAN OUTPATIEN 5 5 PHYSICIAN LACEY T VISIT S GROUP 10 MINUTES OFFICE 92854 A C YAMIL GABY OUTPATIEN 5 5 RUIZ GARRETT T VISIT PSC 15 MINUTES OFFICE 53411 [facility] FRYMAN OUTPATIEN 5 5 PHYSICIAN EUG T VISIT S GROUP 15 MINUTES OFFICE 61102 [facility] KEVAN OUTPATIEN 5 5 PHYSICIAN LACEY T VISIT S GROUP 25 MINUTES OFFICE 10879 A C KILPELA OUTPATIEN 5 5 RUIZ GARRETT JEA T VISIT PSC 15 MINUTES OFFICE 48195 A C KILPELA OUTPATIEN 5 5 RUIZ GARRETT JEA T VISIT PSC 15 MINUTES OFFICE 96277 [facility] KEVAN OUTPATIEN 5 5 PHYSICIAN LACEY T VISIT S GROUP 15 MINUTES OFFICE 71842 [facility] KEVAN OUTPATIEN 5 5 PHYSICIAN LACEY T VISIT S GROUP 15 MINUTES OFFICE 87909 [facility] KEVAN OUTPATIEN 5 5 PHYSICIAN LACEY T VISIT S GROUP 10 MINUTES OFFICE 13045 [facility] FRYMAN OUTPATIEN 5 5 PHYSICIAN EUG T VISIT S GROUP 15 MINUTES OFFICE 27342 [facility] FRYMAN OUTPATIEN 4 4 PHYSICIAN EUG T VISIT S GROUP 15 MINUTES OFFICE 13337 [facility] KEVAN OUTPATIEN 4 4 PHYSICIAN LACEY T VISIT S GROUP 10 MINUTES EMERGENCY 69158 [facility] 4 4 [facility] DEPARTMEN INC T VISIT LOW/MODER SEVERITY EMERGENCY 72323 [facility] 4 4 [facility]IS[facility] PHYS HIGH/URGE NT SEVERITY [facility] - 4 4 [facility] OUTPATIEN INC T OFFICE 24614 [facility] KEVAN OUTPATIEN 4 4 PHYSICIAN LACEY T VISIT S GROUP 15 MINUTES OFFICE 76048 [facility] KEVAN OUTPATIEN 4 4 PHYSICIAN LACEY T VISIT S GROUP 15 MINUTES [facility] - 4 4 [facility] OUTPATIEN INC T OFFICE 66842 [facility] KEVAN OUTPATIEN 4 4 PHYSICIAN LACEY T VISIT S GROUP 10 MINUTES [facility] - 4 4 [facility] OUTPATIEN INC T [facility] - 4 4 [facility] OUTPATIEN INC T OFFICE 02179 [facility] KEVAN OUTPATIEN 4 4 PHYSICIAN LACEY T VISIT S GROUP 15 MINUTES EMERGENCY 28015 [facility] KEVAN 4 4 CLAR[facility] LACEY DEPARTMEN EMERGENCY T VISIT PHYS MODERATE SEVERITY OFFICE 00471 A C KILPELA OUTPATIEN 4 4 RUIZ BOUDREAUX T VISIT PSC 15 MINUTES OFFICE 52639 A C KILPELA OUTPATIEN 4 4 RUIZ BOUDREAUX T VISIT PSC 15 MINUTES EMERGENCY 50603 [facility] KEVAN 4 4 CLAR[facility]EL LACEY DEPARTMEN EMERGENCY T VISIT PHYS HIGH/URGE NT SEVERITY OFFICE 19498 A C KILPELA OUTPATIEN 4 4 RUIZ BOUDREAUX T VISIT PSC 15 MINUTES OFFICE 20644 A C FIELD AMB OUTPATIEN 4 4 RUIZ GARRETT T VISIT PSC 15 MINUTES OFFICE 85620 [facility] KEVAN OUTPATIEN 4 4 PHYSICIAN LACEY T VISIT S GROUP 15 MINUTES OFFICE 05414 RUIZ Keating OUTPATIEN 4 4 T VISIT 15 MINUTES [facility] - 4 4 [facility] OUTPATIEN INC T OFFICE 23190 KILPELA KILPELA OUTPATIEN 4 4 JEA JEA T VISIT 15 MINUTES OFFICE 73280 FIELD AMB FIELD AMB OUTPATIEN 4 4 T VISIT 15 MINUTES EMERGENCY 44365 KEVAN MATHUR 4 4 LACEY LACEY DEPARTMEN T VISIT MODERATE SEVERITY OFFICE 61378 FIELD AMB FIELD AMB OUTPATIEN 4 4 T VISIT 15 MINUTES OFFICE 95206 KILPELA KILPELA OUTPATIEN 4 4 JEA JEA T VISIT 15 MINUTES [facility] [place] [facility] 4 4 [facility], ATTN: DENE OFFICE 00442 FIELD AMB FIELD AMB OUTPATIEN 4 4 T VISIT 15 MINUTES OFFICE 03067 FIELD AMB FIELD AMB OUTPATIEN 4 4 T VISIT 15 MINUTES OFFICE 71445 FIELD AMB FIELD AMB OUTPATIEN 4 4 T VISIT 15 MINUTES OFFICE 53339 CHELO CHELO OUTPATIEN 4 4 CONRAD CONRAD T VISIT 15 MINUTES OFFICE 51062 FIELD AMB FIELD AMB OUTPATIEN 4 4 T VISIT 15 MINUTES OFFICE 98700 KILPELA KILPELA OUTPATIEN 4 4 JEA JEA T VISIT 15 MINUTES OFFICE 05722 FIELD AMB FIELD AMB OUTPATIEN 4 4 T VISIT 15 MINUTES OFFICE 88143 KILPELA KILPELA OUTPATIEN 4 4 JEA JEA T VISIT 15 MINUTES OFFICE 50754 MARTHA THOMAS SEFERINO OUTPATIEN 4 4 T VISIT 15 MINUTES OFFICE 34182 KILPELA KILPELA OUTPATIEN 4 4 JEA JEA T VISIT 15 MINUTES OFFICE 61219 ROJAS STEVE ROJAS STEVE OUTPATIEN 4 4 T VISIT 15 MINUTES OFFICE 48990 FIELD AMB FIELD AMB OUTPATIEN 4 4 T VISIT 15 MINUTES OFFICE 95427 MARTHA GENTILE OUTPATIEN 3 3 T VISIT 15 MINUTES OFFICE 77958 SANTANA DILLON CONSULTAT 3 3 MEJIA BA ION NEW/ESTAB PATIENT 40 MIN OFFICE 98676 ROJAS STEVE ROJAS STEVE OUTPATIEN 3 3 T VISIT 25 MINUTES OFFICE 17573 FIELD AMB FIELD AMB OUTPATIEN 3 3 T VISIT 15 MINUTES [facility] - 3 3 [facility] OUTPATIEN INC T OFFICE 00330 FIELD AMB FIELD AMB OUTPATIEN 3 3 T VISIT 15 MINUTES OFFICE 97201 KILPELA KILPELA OUTPATIEN 3 3 JEA JEA T VISIT 15 MINUTES OFFICE 53098 WALDEMAR WALDEMAR OUTPATIEN 3 3 DOMI DOMI T VISIT 25 MINUTES OFFICE 47363 FIELD AMB FIELD AMB OUTPATIEN 3 3 T VISIT 15 MINUTES OFFICE 96178 A C SHON OUTPATIEN 3 3 RUIZ BOUDREAUX T VISIT PSC 15 MINUTES OFFICE 93539 Zuri MELCHOR A OUTPATIEN 3 3 RUIZ GARRETT T VISIT PSC 15 MINUTES [facility] - [facility] 3 [facility] OUTPATIEN INC T OFFICE 01374 ROJAS STEVE ROJAS STEVE CONSULTAT 3 3 ION NEW/ESTAB PATIENT 60 MIN OFFICE 22324 ROMAN ROMAN OUTPATIEN 3 3 DON DON T VISIT 15 MINUTES OFFICE 83309 ROMAN ROMAN OUTPATIEN 3 3 DON DON T VISIT 15 MINUTES OFFICE 94641 FAMILY OUTPATIEN 3 3 CARE T VISIT ASSOCIATE 15 S MINUTES OFFICE 93504 ROMAN ROMAN OUTPATIEN 3 3 DON DON T VISIT 15 MINUTES OFFICE 14507 ROMAN ROMAN OUTPATIEN 3 3 DON DON T VISIT 15 MINUTES OFFICE 38780 ROMAN ROMAN OUTPATIEN 3 3 DON DON T VISIT 25 MINUTES OFFICE 71361 ROMAN ROMAN OUTPATIEN 3 3 DON DON T VISIT 15 MINUTES EMERGENCY 80351 [facility] 3 3 [facility] DEPARTMEN INC T VISIT LOW/MODER SEVERITY EMERGENCY 84709 PREETI ÁLVAREZ 3 3 III JESSEE III [facility] T VISIT MODERATE SEVERITY [facility] - 3 3 [facility] OUTPATIEN INC T OFFICE 07967 PETTEY PETTEY OUTPATIEN 3 3 JAM JAM T VISIT 15 MINUTES [facility] - 3 3 [facility] OUTPATIEN INC T OFFICE 85870 PETTEY PETTEY OUTPATIEN 3 3 JAM JAM T NEW 30 MINUTES [facility] - 3 3 [facility] OUTPATI[facility] INC T OFFICE 66576 ROMAN ROMAN OUTPATIEN 3 3 DON DON T VISIT 15 MINUTES OFFICE 75874 ROMAN ROMAN OUTPATIEN 3 3 DON DON T VISIT 15 MINUTES OFFICE 85685 ROMAN ROMAN OUTPATIEN 3 3 DON DON T VISIT 15 MINUTES OFFICE 37171 ROMAN ROMAN OUTPATIEN 3 3 DON DON T VISIT 15 MINUTES EMERGENCY 07374 JOSE MARIA DE LA ROSA 2 2 EMERGENCY [facility] T VISIT HIGH/URGE NT SEVERITY [facility] - 2 2 [facility] OUTPAT[facility]EN INC T EMERGENCY 35367 [facility] 2 2 [facility] MODERATE SEVERITY OFFICE 44222 ROMAN ROMAN OUTPATIEN 2 2 DON DON T VISIT 15 MINUTES OFFICE 07067 ROMAN ROMAN OUTPATIEN 2 2 DON DON T VISIT 15 MINUTES OFFICE 79296 ROMAN ROMAN OUTPATIEN 2 2 DON DON T VISIT 15 MINUTES OFFICE 41108 ROMAN ROMAN OUTPATIEN 2 2 DON DON T VISIT 15 MINUTES OFFICE 51279 ROMAN ROMAN OUTPATIEN 2 2 DON DON T VISIT 15 MINUTES EMERGENCY 32710 JOSE MARIA LINDQUIST 2 2 [facility] SERVICES T VISIT MODERATE SEVERITY EMERGENCY 30290 [facility] 2 2 [facility] T VISIT LOW/MODER SEVERITY [facility] 2 [facility] 66131 ABEL KITCHENS OUTPATIEN 2 2 DON DON T VISIT 15 MINUTES EMERGENCY 79670 JOSE MARIA DE LA ROSA 2 2 EMERGENCY [facility] T VISIT HIGH/URGE NT SEVERITY [facility] - 2 2 [facility] T EMERGENCY 03522 KEVAN MATHUR 2 2 [facility] DEPARTMEN T VISIT MODERATE SEVERITY EMERGENCY 78906 [facility] 2 2 [facility] INC T VISIT LOW/MODER SEVERITY OFFICE 44307 ROMAN ROMAN OUTPATIEN 2 2 DON DON T VISIT 15 MINUTES OFFICE 16220 ROMAN ROMAN OUTPATIEN 2 2 DON DON T VISIT 15 MINUTES EMERGENCY 59946 PREETI ÁLVAREZ 2 2 III JESSEE III [facility] DEPARTMEN T VISIT HIGH/URGE NT SEVERITY [facility] - 2 2 [facility] OUT[facility] INC T EMERGENCY 20782 [facility] 2 2 [facility] INC T VISIT LOW/MODER SEVERITY OFFICE 63733 ROMAN ROMAN OUTPATIEN 2 2 DON DON T VISIT 15 MINUTES OFFICE 10379 ROMAN ROMAN OUTPATIEN 2 2 DON DON T VISIT 15 MINUTES OFFICE 56747 ROMAN ROMAN OUTPATIEN 2 2 DON DON T VISIT 15 MINUTES [facility] 2 2 [facility] 12271 PREETI ÁLVAREZ 2 2 III JESSEE III [facility] T VISIT HIGH/URGE NT SEVERITY EMERGENCY 28210 [facility] 2 2 [facility] INC T VISIT MODERATE SEVERITY OFFICE 38470 ROMAN ROMAN OUTPATIEN 2 2 DON DON T VISIT 15 MINUTES [facility] 2 2 [facility] 63013 [facility] 2 2 [facility] INC T VISIT HIGH/URGE NT SEVERITY OFFICE 28094 W[facility]DE[facility] 2 2 DOMI DOMI ION NEW/ESTAB PATIENT 60 MIN [facility] 2 2 [facility] OFF[facility] 04349 ROMAN ROMAN OUTPATIEN 2 2 DON DON T VISIT 25 MINUTES OFFICE 43066 ROMAN ROMAN OUTPATIEN 2 2 DON DON T VISIT 15 MINUTES [facility] 2 2 [facility] 25890 JOSE MARIA MATHUR 2 2 EMERGENCY [facility] SERVICES T VISIT HIGH/URGE NT SEVERITY EMERGENCY 40111 [facility] 2 2 [facility] INC T VISIT MODERATE SEVERITY EMERGENCY 90134 [facility] 2 [facility]ATE SEVERITY EMERGENCY 98951 [facility] 2 2 DEPARTMEN T VISIT MODERATE SEVERITY [facility] - 2 2 [facility] T OFFICE 74758 ROMAN ROMAN OUTPATIEN 2 2 DON DON T VISIT 15 MINUTES [facility] 2 2 [facility] 47421 [facility] 2 [facility] MODERATE SEVERITY EMERGENCY 78940 JOSE MARIA MATHUR 2 2 EMERGENCY [facility] SERVICES T VISIT HIGH/URGE NT [facility]VERITY [facility] 2 2 [facility] 88990 PREETI ÁLVAREZ 2 2 [facility] 59324 [facility] 2 [facility] MODERATE SEVERITY OFFICE 92071 ROMAN ROMAN OUTPATIEN 2 2 DON DON T VISIT 15 MINUTES OFFICE 06414 ROMAN ROMAN OUTPATIEN 2 2 DON DON T VISIT 25 MINUTES [facility] 2 2 [facility] T EMERGENCY 63266 [facility] 2 [facility] MODERATE SEVERITY EMERGENCY 88827 JOSE MARIA MATHUR 2 2 EMERGENCY [facility] SERVICES T VISIT HIGH/URGE NT SEVERITY OFFICE 98555 ROMAN ROMAN OUTPATIEN 2 2 DON DON T VISIT 15 MINUTES EMERGENCY 98664 [facility] MODERATE SEVERITY EMERGENCY 01914 PREETI ÁLVAREZ 2 2 III [facility] SE[facility]ITY [facility] - 2 2 [facility] OUTPATIEN INC T OFFICE 44770 ROMAN ROMAN OUTPATIEN 2 2 DON DON T VISIT 15 MINUTES OFFICE 23662 ROMAN ROMAN OUTPATIEN 2 2 DON DON T VISIT 15 MINUTES OFFICE 10035 ROMAN ROMAN OUTPATIEN 2 2 DON DON T VISIT 15 MINUTES OFFICE 11104 ROMAN ROMAN OUTPATIEN 2 2 DON DON T VISIT 15 MINUTES OFFICE 41407 ROMAN ROMAN OUTPATIEN 2 2 DON DON T VISIT 15 MINUTES EMERGENCY 15172 JOSE MARIA MATHUR 2 2 EMERGENCY [facility]ISIT HIGH/URGE NT SEVERITY OFFICE 10046 ROMAN ROMAN OUTPATIEN 2 2 DON DON T VISIT 15 MINUTES OFFICE 17380 ROMAN ROMAN OUTPATIEN 1 1 DON DON T VISIT 15 MINUTES [facility] 1 1 [facility] INC T EMERGENCY 78511 KEVAN MATHUR 1 1 [facility] DEPARTMEN T VISIT HIGH/URGE NT SEVERITY EMERGENCY 27729 [place] 1 1 [facility] DEPARTMEN INC T VISIT LOW/MODER SEVERITY OFFICE 79270 ROMAN ROMAN OUTPATIEN 1 1 DON DON T VISIT 15 MINUTES OFFICE 19703 ROMAN ROMAN OUTPATIEN 1 1 DON DON T VISIT 15 MINUTES OFFICE 78795 ROMAN ROMAN OUTPATIEN 1 1 DON DON T VISIT 15 MINUTES EMERGENCY 95925 [place] 1 1 [facility] DEPARTMEN INC T VISIT HIGH/URGE NT SEVERITY [facility] - 1 1 [facility] OUTPATIEN INC T EMERGENCY 26711 JOSE MARIA MORTON 1 1 EMERGENCY DEPARTMEN SERVICES T VISIT HIGH/URGE NT SEVERITY EMERGENCY 24952 [facility] 1 1 [facility] T VISIT MODERATE SEVERITY [facility] - 1 1 [facility] OUTPATI[facility] INC T OFFICE 23553 ROMAN ROMAN OUTPATIEN 1 1 DON DON T VISIT 15 MINUTES [facility] - 1 1 [facility] OUT[facility] INC T EMERGENCY 18616 JOSE MARIA MATHUR DEPT 1 1 EMERGENCY [facility] VISIT SERVICES HIGH SEVERITY& THREAT FUN EMERGENCY 14718 [place] 1 1 [facility] DEPARTMEN INC T VISIT MODERATE SEVERITY OFFICE 82353 ROMAN ROMAN OUTPATIEN 1 1 DON DON T VISIT 15 MINUTES OFFICE 49019 ROMAN ROMAN OUTPATIEN 1 1 DON DON T VISIT 25 MINUTES OFFICE 91631 ROMAN ROMAN OUTPATIEN 1 1 DON DON T VISIT 15 MINUTES EMERGENCY 63360 [place] 1 1 [facility] DEPARTMEN INC T VISIT LOW/MODER SEVERITY [facility] - 1 1 [facility] OUTPAT[facility]EN INC T OFFICE 16335 ROMAN ROMAN OUTPATIEN 1 1 DON DON T VISIT 15 MINUTES EMERGENCY 98539 JOSE MARIA ÁLVAREZ DEPT 1 1 EMERGENCY III [facility] VISIT SERVICES HIGH SEVERITY& THREAT [facility] - 1 1 [facility] OUTPATIEN INC T EMERGENCY 93041 [place] 1 1 [facility] DEPARTMEN INC T VISIT LOW/MODER SEVERITY OFFICE 93613 ROMAN ROMAN OUTPATIEN 1 1 DON DON T VISIT 15 MINUTES EMERGENCY 26129 [place] 1 1 [facility] DEPARTMEN INC T VISIT LOW/MODER SEVERITY EMERGENCY 99893 JOSE MARIA MATHUR 1 1 EMERGENCY [facility] SERVICES T VISIT HIGH/URGE NT SEVERITY [facility] - 1 1 [facility] OUTPATIEN INC T [facility] 1 1 [facility] OUTPATIEN INC T EMERGENCY 62354 JOSE MARIA MATHUR 1 1 EMERGENCY [facility] SERVICES T VISIT HIGH/URGE NT SEVERITY OFFICE 48972 ROMAN ROMAN OUTPATIEN 1 1 DON DON T VISIT 15 MINUTES [facility] - 1 1 [facility]EN [facility] - 1 1 [facility] OUTPATIEN INC T OFFICE 68248 ROMAN ROMAN OUTPATIEN 1 1 DON DON T VISIT 15 MINUTES OFFICE 73106 ROMAN ROMAN OUTPATIEN 1 1 DON DON T VISIT 15 MINUTES OFFICE 55432 ROMAN ROMAN OUTPATIEN 0 0 DON DON T VISIT 15 MINUTES EMERGENCY 22175 JOSE MARIA ÁLVAREZ 0 0 EMERGENCY [facility] SERVICES T VISIT MODERATE SEVERITY [facility] 0 [facility] T EMERGENCY 26565 [place] 0 0 [facility] DEPARTMEN INC T VISIT LOW/MODER SEVERITY [facility] - 0 0 [facility] INC T EMERGENCY 25631 JOSE MARIA LINDSEY DEPT 0 0 EMERGENCY SHAN VISIT SERVICES HIGH SEVERITY& THREAT FUNCJ EMERGENCY 81085 [facility] 0 0 [facility] DEPART[facility] INC T VISIT MODERATE SEVERITY OFFICE 68726 ROMAN ROMAN OUTPATIEN 0 0 DON DON T VISIT 15 MINUTES EMERGENCY 59388 JOSE MARIA LINDSEY DEPT 0 0 EMERGENCY SHAN VISIT SERVICES HIGH SEVERITY& THREAT FUNCJ EMERGENCY 19619 [facility] 0 0 [facility] DE[facility] INC T VISIT HIGH/URGE NT SEVERITY [facility] 0 [facility] INC T EMERGENCY 18466 JOSE MARIA LINDSEY DEPT 0 0 EMERGENCY SHAN VISIT SERVICES HIGH SEVERITY& THREAT FUNCJ OFFICE 47341 [facility] OUTPATIEN [address] [facility] T VISIT 25 MINUTES EMERGENCY 09920 JOSE MARIA CHAPMAN 0 0 EMERGENCY [facility] DEPARTMEN SERVICES T VISIT MODERATE SEVERITY [facility] INC T EMERGENCY 62025 [facility] 0 0 [facility] DEPARTMEN INC T VISIT LIMITED/M INOR PROB OFFICE 92296 ROMAN ROMAN OUTPATIEN 0 0 DON DON T VISIT 15 MINUTES OFFICE 28335 ROMAN ROMAN OUTPATIEN 0 0 DON DON T VISIT 15 MINUTES EMERGENCY 71301 [facility] 0 0 [facility] DEPART[facility] INC T VISIT LIMITED/M INOR PROB [facility] INC T EMERGENCY 60379 JOSE MARIA MORTON 0 0 EMERGENCY DEPARTMEN SERVICES T VISIT HIGH/URGE NT SEVERITY EMERGENCY 19529 [facility] 0 0 [facility] DEPART[facility] INC T VISIT LIMITED/M INOR PROB [facility] - [facility] 0 [facility] OUT[facility] INC T EMERGENCY 55368 [facility] 0 0 [facility] DEPARTMEN INC T VISIT LIMITED/M INOR PROB [facility] - [facility] 0 [facility] INC T EMERGENCY 22375 JOSE MARIA ÁLVAREZ 0 0 EMERGENCY III [facility] T VISIT HIGH/URGE NT SEVERITY EMERGENCY 78807 JOSE MARIA ÁLVAREZ 0 0 [facility] H[facility]GE NT SEVERITY EMERGENCY 71612 [facility]MODER [facility]ITY [facility] 0 [facility] T [facility] 0 0 [facility] T EMERGENCY 99601 JOSE MARIA MATHUR 0 0 EMER[facility]Y [facility] T VISIT HIGH/URGE NT SEVERITY EMERGENCY 54442 [place] 0 0 [facility] T VISIT LOW/MODER SEVERITY OFFICE 47607 [place] [facility] CONS[facility] 0 0 MEDICAL ION SERV NEW/ESTAB FOUNDATIO PATIENT 40 MIN [facility] 0 0 [facility] T EMERGENCY 26966 JOSE MARIA MATHUR 0 0 EMERGENCY [facility] T VISIT HIGH/URGE NT SEVERITY EMERGENCY 47223 [place] 0 0 [facility] T VISIT LIMITED/M INOR PROB EMERGENCY 79986 JOSE MARIA MATHUR, 0 0 EMERGENCY [facility] SERVICES T VISIT HIGH/URGE ASSOCIATE NT S SEVERITY EMERGENCY 99984 [facility] 0 0 [facility] T VISIT LIMITED/M INOR PROB [facility] - 0 0 [facility] OUTPATIEN [facility] T OFFICE 46115 ABEL ROMAN OUTPATIEN 0 0 DON R DON R T VISIT 15 MINUTES [facility] - 0 0 [facility] OUTPATIEN [facility] T EMERGENCY 48447 JOSE MARIA ÁLVAREZ 0 0 EMERGENCY III, [facility] ANGELIQUE T VISIT HIGH/URGE ASSOCIATE NT S SEVERITY [facility] T OFFICE 50127 ABEL ROMAN OUTPATIEN 0 0 DON R DON R T VISIT 25 MINUTES EMERGENCY 26679 JOSE MARIA MATHUR, 0 0 EMERGENCY [facility] SERVICES T VISIT HIGH/URGE ASSOCIATE NT S SEVERITY EMERGENCY 78369 [facility] 0 0 [facility] DE[facility] INC T VISIT LIMITED/M INOR PROB [facility] - 0 0 [facility] INC T EMERGENCY 83380 [facility] 0 0 [facility] INC T VISIT LOW/MODER SEVERITY EMERGENCY 72004 JOSE MARIA MATHUR, 0 0 EMERGENCY [facility] SERVICES T VISIT MODERATE ASSOCIATE SEVERITY S [facility] - [facility] 0 [facility] T OFFICE 38198 ABEL ROMAN OUTPATIEN 0 0 DON R DON R T VISIT 15 MINUTES [facility] - 0 0 [facility] T EMERGENCY 86373 [facility] 0 0 [facility] INC T VISIT MODERATE SEVERITY EMERGENCY 46462 JOSE MARIA IRELAND, 0 0 EMERGENCY [facility] SERVICES M T VISIT HIGH/URGE ASSOCIATE NT S SEVERITY [facility] - 0 0 [facility] T EMERGENCY 69715 JOSE MARIA MATHUR, 0 0 EMERGENCY [facility] SERVICES T VISIT HIGH/URGE ASSOCIATE NT S SEVERITY EMERGENCY 70556 [facility] 0 0 [facility] INC T VISIT MODERATE SEVERITY [facility] - 0 0 [facility] T EMERGENCY 57285 JOSE MARIA MATHUR, 0 0 EMERGENCY [facility] SERVICES T VISIT HIGH/URGE ASSOCIATE NT S SEVERITY OFFICE 46726 ABEL ROMAN OUTPATIEN 9 9 DON R DON R T VISIT 15 MINUTES EMERGENCY 62096 [facility] 9 9 [facility] DE[facility] INC T VISIT LIMITED/M INOR PROB [facility] - 9 9 [facility] OUTPAT[facility] INC T [facility] - 9 9 [facility] OUTPATIEN INC T EMERGENCY 66207 JOSE MARIA MATHUR, 9 9 EMERGENCY [facility] SERVICES T VISIT HIGH/URGE ASSOCIATE NT S SEVERITY EMERGENCY 20936 [place] 9 9 [facility] T VISIT MODERATE SEVERITY EMERGENCY 67203 [place] 9 9 [facility] T VISIT LIMITED/M INOR PROB EMERGENCY 73042 JOSE MARIA MATHUR, 9 9 EMERGENCY [facility] SERVICES T VISIT HIGH/URGE ASSOCIATE NT S SEVERITY [facility] - 9 9 [facility] T EMERGENCY 35521 [facility] 9 9 [facility] T VISIT LIMITED/M INOR PROB EMERGENCY 18212 JOSE MARIA MATHUR, 9 9 EMERGENCY [facility] SERVICES T VISIT HIGH/URGE ASSOCIATE NT S SEVERITY [facility] - 9 9 [facility] OUTPATIEN INC T OFFICE 02192 ABEL ROMAN OUTPATIEN 9 9 DON R DON R T VISIT 15 MINUTES EMERGENCY 11232 [facility] 9 9 [facility] INC T VISIT LOW/MODER SEVERITY EMERGENCY 01988 JOSE MARIA MATHUR, 9 9 EMERGENCY [facility] SERVICES T VISIT MODERATE ASSOCIATE SEVERITY S [facility] - 9 9 [facility] OUTPATIEN INC T [facility] - 9 9 [facility] T EMERGENCY 36458 JOSE MARIA MATHUR, 9 9 EMERGENCY [facility] SERVICES T VISIT HIGH/URGE ASSOCIATE NT S SEVERITY EMERGENCY 34703 [place] 9 9 [facility] DEPARTMEN INC T VISIT LOW/MODER SEVERITY EMERGENCY 41678 JOSE MARIA MATHUR, 9 9 EMERGENCY [facility] SERVICES T VISIT HIGH/URGE ASSOCIATE NT S SEVERITY EMERGENCY 69456 [place] 9 9 [facility] T VISIT LIMITED/M INOR PROB [facility] - 9 9 [facility] OUTPATIEN [facility] - 9 9 [facility] OUTPATIEN [facility] T OFFICE 27855 ABEL ROMAN OUTPATIEN 9 9 DON R DON R T VISIT 15 MINUTES OFFICE 94179 CHIKIS DIOP, CONSULTAT 9 9 DESI SANCHEZ NEW/ESTAB PATIENT 80 MIN OFFICE 33618 ABEL ROMAN OUTPATIEN 9 9 DON R DON R T VISIT 15 MINUTES [facility] - 9 9 [facility] OUTPATIEN INC T EMERGENCY 79640 JOSE MARIA CASTANEDA, 9 9 EMERGENCY [facility] SERVICES T VISIT HIGH/URGE ASSOCIATE NT S SEVERITY EMERGENCY 12997 [place] 9 9 [facility] DEPARTMEN INC T VISIT LOW/MODER SEVERITY [facility] - 9 9 [facility] OUTPATIEN INC T EMERGENCY 48924 [place] 9 9 [facility] T VISIT LIMITED/M INOR PROB EMERGENCY 61115 [place] 9 9 [facility] T VISIT LOW/MODER SEVERITY EMERGENCY 03003 JOSE MARIA CASTANEDA, DEPT 9 9 EMERGENCY [place] VISIT SERVICES HIGH SEVERITY& ASSOCIATE THREAT S [facility] - 9 9 [facility] OUT[facility] INC T EMERGENCY 65712 [place] 9 9 [facility] DEPART[facility] INC T VISIT LOW/MODER SEVERITY EMERGENCY 61461 JOSE MARIA MATHUR, 9 9 EMERGENCY [facility] SERVICES T VISIT HIGH/URGE ASSOCIATE NT S SEVERITY EMERGENCY 64558 JOSE MARIA MATHUR, 9 9 EMERGENCY [facility] SERVICES T VISIT HIGH/URGE ASSOCIATE NT S SEVERITY EMERGENCY 72548 [facility] 9 9 [facility] INC T VISIT LIMITED/M INOR [facility] - 9 9 [facility] OUTPATIEN INC T EMERGENCY 73518 [place] 9 9 [facility] DEPARTMEN INC T VISIT LIMITED/M INOR [facility] - 9 9 [facility] OUTPATI[facility] INC T EMERGENCY 52608 JOSE MARIA MATHUR, 9 9 EMERGENCY [facility] SERVICES T VISIT HIGH/URGE ASSOCIATE NT S SEVERITY [facility] - 9 9 [facility] INC T EMERGENCY 83502 JOSE MARIA MATHUR, 9 9 EMERGENCY [facility] SERVICES T VISIT MODERATE ASSOCIATE SEVERITY S EMERGENCY 38822 [facility] 9 9 [facility] DE[facility] INC T VISIT LIMITED/M INOR PROB [facility] - 9 9 [facility] OUTPAT[facility] INC T EMERGENCY 66158 JOSE MARIA BOOTH, DEPT 9 9 EMERGENCY [place] P VISIT SERVICES HIGH SEVERITY& ASSOCIATE THREAT S [facility] EMERGENCY 21634 [place] 9 9 [facility] DEPARTMEN INC T VISIT LIMITED/M INOR PROB [facility] - 9 9 [facility] OUTPATIEN INC T EMERGENCY 35761 JOSE MARIA MATHUR, 9 9 EMERGENCY [facility] SERVICES T VISIT MODERATE ASSOCIATE SEVERITY S EMERGENCY 40465 [place] 9 9 [facility] DEPARTMEN INC T VISIT LOW/MODER SEVERITY EMERGENCY 88947 [place] 9 9 [facility] DEPARTMEN INC T VISIT LIMITED/M INOR PROB [facility] - 9 9 [facility] OUTPATIEN INC T EMERGENCY 81548 JOSE MARIA MATHUR, 9 9 EMERGENCY [facility] SERVICES T VISIT MODERATE ASSOCIATE SEVERITY S [facility] - 9 9 [facility] EM[facility] 58949 [place] 9 9 [facility] T VISIT LOW/MODER SEVERITY EMERGENCY 61670 JOSE MARIA MATHUR, 9 9 EMERGENCY [facility] SERVICES T VISIT MODERATE ASSOCIATE SEVERITY S [facility] - 9 9 [facility] EMER[facility]ENC[facility] 78985 [place] 9 9 [facility] T VISIT LOW/MODER SEVERITY EMERGENCY 24046 JOSE MARIA MATHUR, 9 9 EMERGENCY [facility] SERVICES T VISIT HIGH/URGE ASSOCIATE NT S SEVERITY EMERGENCY 08191 [place] 9 9 [facility] T VISIT MODERATE SEVERITY [facility] - 9 9 [facility] EM[facility] 84627 JOSE MARIA MATHUR, 9 9 EMERGENCY [facility] SERVICES T VISIT HIGH/URGE ASSOCIATE NT S SEVERITY EMERGENCY 89869 JOSE MARIA MATHUR, 9 9 EMERGENCY [facility] SERVICES T VISIT HIGH/URGE ASSOCIATE NT S SEVERITY EMERGENCY 94189 [place] 9 9 [facility] DEPARTMEN INC T VISIT LIMITED/M INOR PROB [facility] - 9 9 [facility] OUTPATIEN INC T EMERGENCY 80950 [place] 9 9 [facility] DEPARTMEN INC T VISIT LIMITED/M INOR PROB EMERGENCY 84874 JOSE MARIA COLEMAN, 9 9 [facility] MODERATE ASSOCIATE SEVERITY S [facility] - 9 9 [facility] INC T EMERGENCY 15302 JOSE MARIA MATHUR, 9 9 EMERGENCY [facility] SERVICES T VISIT MODERATE ASSOCIATE SEVERITY S [facility] - 9 9 [facility] OUTPAT[facility] INC T EMERGENCY 10553 [place] 9 9 [facility] DEPARTMEN INC T VISIT LOW/MODER SEVERITY EMERGENCY 91709 [place] 9 9 [facility] DEPARTMEN INC T VISIT LIMITED/M INOR PROB EMERGENCY 64044 JOSE MARIA MATHUR, 9 9 EMERGENCY [facility] SERVICES T VISIT MODERATE ASSOCIATE SEVERITY S [facility] - 9 9 [facility] OUTPAT[facility]EN INC T EMERGENCY 75163 [place] 9 9 [facility] DEPARTMEN INC T VISIT LIMITED/M INOR PROB EMERGENCY 85849 JOSE MARIA MATHUR, 9 9 EMERGENCY [facility] SERVICES T VISIT HIGH/URGE ASSOCIATE NT S SEVERITY [facility] - 9 9 [facility] OUTPATIEN INC T [facility] - 9 9 [facility] OUTPATIEN INC T EMERGENCY 46915 [facility] 9 9 [facility] DEPARTMEN INC T VISIT MODERATE SEVERITY EMERGENCY 58586 JOSE MARIA MATHUR, 9 9 [facility]ER[facility] T VISIT HIGH/URGE ASSOCIATE NT S SEVERITY EMERGENCY 11535 JOSE MARIA MATHUR, 9 9 EMERGENCY [facility] SERVICES T VISIT HIGH/URGE ASSOCIATE NT S SEVERITY EMERGENCY 36565 [facility] 9 9 [facility] DEPARTMEN INC T VISIT MODERATE SEVERITY [facility] - 9 9 [facility] OUTPATIEN INC T EMERGENCY 27669 JOSE MARIA CASTANEDA, 9 9 EMERGENCY [facility] SERVICES T VISIT MODERATE ASSOCIATE SEVERITY S EMERGENCY 39841 [place] 9 9 [facility] DEPARTMEN INC T VISIT LIMITED/M INOR PROB [facility] - 9 9 [facility]PAT[facility]EN INC T [facility] - 9 9 [facility] OUTPATIEN INC T EMERGENCY 37293 JOSE MARIA MATHUR, DEPT [address] [facility] VISIT SERVICES HIGH SEVERITY& ASSOCIATE THREAT S FUN EMERGENCY 69864 [place] 9 9 [facility] T VISIT MODERATE SEVERITY OFFICE 30506 ABEL ROMAN OUTPATIEN 9 9 DON R DON R T VISIT 15 MINUTES EMERGENCY 28535 [place] 9 9 [facility] T VISIT LOW/MODER SEVERITY [facility] - 9 9 [facility] OUTPATIEN INC T OFFICE 39154 ABEL ROMAN OUTPATIEN 9 9 DON R DON R T VISIT 15 MINUTES EMERGENCY 92390 LUCHO MATHUR, 9 9 [facility] T VISIT ON MODERATE SEVERITY [facility] - 9 9 [facility] OUTPATIEN INC T EMERGENCY 36947 [facility] 9 9 [facility] DEPARTMEN INC T VISIT LOW/MODER SEVERITY [facility] - 9 9 [facility] OUTPATIEN INC T EMERGENCY 35071 [place] 9 9 [facility] DEPARTMEN INC T VISIT LOW/MODER SEVERITY EMERGENCY 28012 LUCHO MATHUR, 9 9 [facility] T VISIT ON MODERATE SEVERITY EMERGENCY 54328 LUCHO CASTANEDA, 9 9 [facility] T VISIT ON MODERATE SEVERITY EMERGENCY 59925 [place] 9 9 [facility] DEPARTMEN [facility] T VISIT LIMITED/M INOR PROB [facility] - 9 9 [facility] OUTPATIEN INC T OFFICE 57549 ABEL ROMAN OUTPATIEN 9 9 DON R DON R T VISIT 15 MINUTES EMERGENCY 80941 LUCHO MATHUR, DEPT 9 9 [facility]IT [facility] HIGH ON SEVERITY& THREAT FUNJ EMERGENCY 43534 [place] 9 9 [facility] T VISIT HIGH/URGE NT SEVERITY [facility] - 9 9 [facility] OUTPATIEN [facility] T [facility]OSPITAL [facility] - 8 8 [facility] T EMERGENCY 48180 [facility] 8 8 [facility] T VISIT LOW/MODER SEVERITY EMERGENCY 12986 LUCHO MATHUR, 8 8 [facility] T VISIT ON MODERATE SEVERITY OFFICE 20405 ABEL ROMAN OUTPATIEN 8 8 DON R DON R T VISIT 15 MINUTES [facility] - 8 8 [facility] OUTPATIEN [facility] T EMERGENCY 18135 [place] 8 8 [facility] T VISIT HIGH/URGE NT SEVERITY [facility] - 8 8 [facility] OUTPATIEN [facility] T EMERGENCY 63363 LEELEE 8 8 [facility] DEPARTMEN [facility] T VISIT LIMITED/M INOR PROB EMERGENCY 72866 LEELEE 8 8 [facility] DEPARTMEN [facility] T VISIT LIMITED/M INOR PROB HOSPITAL LEELEE - 8 8 [facility] OUTPATIEN [facility] T OFFICE [id number] ABEL ROMAN OUTPATIEN 8 8 DON R DON R T VISIT 15 MINUTES EMERGENCY [id number] LEELEE 8 8 [facility] T VISIT LOW/MODER SEVERITY HOSPITAL LEELEE - 8 8 [facility] OUTPATIEN [facility] T OFFICE [id number] ABEL ROMAN OUTPATIEN 8 8 DON R DON R T VISIT 15 MINUTES OFFICE [id number] ABEL ROMAN OUTPATIEN 8 8 DON R DON R T VISIT 15 MINUTES OFFICE [id number] ABEL ROMAN OUTPATIEN 8 8 DON R DON R T VISIT 15 MINUTES EMERGENCY 83942 LEELEE 8 8 [facility] T VISIT LOW[facility]MODER SEVERITY HOSPITAL [facility]EELEE - 8 8 [facility] T EMERGENCY 53438 LEELEE 8 8 [facility] T VISIT LIMITED/M INOR PROB HOSPITAL LEELEE - 8 8 [facility] T EMERGENCY 35828 LEELEE 8 8 [facility] T VISIT [facility]OW/MODER SEVERITY [facility]OSPITAL LEELEE - 8 8 [facility] T OFFICE [id number] ABEL ROMAN OUTPATIEN 8 8 DON R DON R T VISIT 15 MINUTES EMERGENCY [id number] LEELEE 8 8 [facility] T VISIT MODERATE SEVERITY HOSPITAL LEELEE - 8 8 [facility] OUTPATIEN [facility] T OFFICE 56174 ABEL ROMAN OUTPATIEN 8 8 DON R DON R T VISIT 15 MINUTES EMERGENCY 25461 LEELEE CASTANEDA, 8 8 [facility] T VISIT PROF SERV LOW/MODER SEVERITY EMERGENCY 39311 LEELEE 8 8 [facility] T [facility]ISIT LIMITED/M INOR PROB HOSPITAL LEELEE - 8 8 [facility] OUTPATIEN INC T OFFICE 77743 ABEL ROMAN OUTPATIEN 8 8 [facility] T VISIT 25 MINUTES HOSPITAL LEELEE Torres 8 [facility] OUTPATIEN INC T EMERGENCY 36939 LEELEE 8 8 [facility] LOW/MODER SEVERITY
[2017-03-04 00:47] LABS: LYMPH # 1.9 K/mm3 (0.7-4.5); LYMPH % 26.1 % (10-50.0)
--- OUTSIDE RECORDS SUMMARY | 2017-03-04 00:49 | External Medical Summary Rpt ---
Author Author SHIMON Montilla, [employer] Organization [employer] Address Unknown Phone Unavailable Results Streptococcus pyogenes Ag [Presence] in Unspecified specimen Observa Value Referen Units Interpr Notes Date tion ce etation Range Strepto NOT NOTDETE No No LOT # January 23 coccus DETECTE CTED informa informa N/A EXP 2016 pyogene D tion in tion in DATE 5:15 PM s Ag source source N/A [Presen data data ce] in Unspeci fied specime n
--- OUTSIDE RECORDS SUMMARY | 2017-03-04 00:49 | External Medical Summary Rpt ---
Author Author , Organization [employer] Address Unknown Phone Unavailable Purpose Continuity of Care Document - 12-24-2006 through 2016 Immunization Name Date Route CVX Reacti Commen Provid Is Given on t er Refuse d Tdap, Histor H149 No Adsorb 2006 ical ed Inform ation - Source Unspec ified
[2017-03-04 00:50] LABS: HEMOGLOBIN 13.9 g/dL (12.2-16.2)
[2017-03-04 01:14] VITALS: BP 109/69
[2017-03-10] MEDS ORDERED: ZOFRAN ODT4 MG PO (18:47)
== END 2017-03-04 01:14 | disposition home or self-care (01) ==
LOC: ER 00:04
PROVIDERS: Emergency Medicine
DX: R51 Headache (principal); I10 Essential (primary) hypertension; K21.9 Gastro-esophageal reflux disease without esophagitis; Z72.0 Tobacco use

== ENCOUNTER 2017-05-18 21:07 | Emergency (ER) | payer MEDICAID ==
[~2017-05-18] VITALS: Ht 160 cm; Wt 113.4 kg
--- NOTE | 2017-05-18 21:27 | Emergency Room Report ---
History of Present Illness Time Seen by [id number] Presenting Problem in Triage Pt arrived:Walked Presenting Problem:PT STATES THAT SHE HAS HAD A COLD SINCE LAST NIGHT, INCREASED COUGHING TODAY, NOT ABLE TO COUGH ANYTHING UP. NO KNOWN FEVER. 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 N Clinical Suspician of Infection? Y Mental Status: 1 - Regular (Normal Baseline) Sepsis Risk:Low Sepsis Risk Have you (or family members/close friends) recently traveled outside the [place]? N If Yes, where/when: Have you had exposure to infectious disease within the past month? N TB? Other? 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 but no rash Cardiac Chest Pain Chest pain indicative of cardiac No Timing/Duration this evening Severity moderate ALLERGIES Coded Allergies: Sulfa (Sulfonamide Antibiotics) (Mild, 09/03/16) morphine (Mild, 09/03/16) NSAIDS (Non-Steroidal Anti-Inflamma (UNKNOWN 09/03/16) escitalopram (From LEXAPRO) (UNKNOWN 09/03/16) ibuprofen (From MOTRIN) (12/10/16) Home Medications Active Scripts Ondansetron (Zofran 4MG Odt) 4 MG PO Q6HP PRN NAUSEA AND VOMITING #6 ODT Prov: 03/10/17 Reported Medications ATENOLOL (Atenolol 50MG) 50 MG PO DAILY Omeprazole (Omeprazole 20MG) 20 MG PO DAILY #30 Zolpidem Tartrate (Zolpidem 10MG) 10 MG PO QHS #30 ALBUTEROL (Ventolin Hfa) 1 PUFF IH Q6H6 History Medical History General CAD? No Angina: No ID: No Hypertension? Yes Hyperlipidemia? No CHF? No DVT? No PE? No COPD? No Asthma? Yes Anemia? No GERD? Yes Gastric ulcers? No GI Bleed? No Hernia? No Thyroid Problems? No Hypothyroidism? No CVA? No Seizures? No Diabetes? No End Stage Renal Disease? No UTI? No Stones? No BPH? No GB Disease: Yes Nephritic Syndrome? No Asplenia? No Hepatitis? No Sickle Cell Disease? No Arthritis? No Migraines? No Cataracts? No Glaucoma? No MRSA? No HIV? No TB? No Anxiety? Yes Depression? No Cancer? Yes Site: NECK (HODGKINS) More? 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 denies: ear discharge, epistaxis, throat swelling. Respiratory cough, denies shortness of breath, denies wheezing Cardiovascular denies chest pain, denies palpitations, denies syncope Gastrointestinal denies abdominal pain, denies diarrhea, denies vomiting Genitourinary denies: dysuria, frequency, hesitancy, hematuria. Musculoskeletal denies back pain, denies joint pain, denies joint swelling, denies neck pain Skin denies rash Psychiatric/Neurological denies anxiety, denies seizure Physical Exam Vital Signs Vital Signs Date Time Temp Pulse Resp B/P Pulse O2 O2 Flow FiO2 Ox Delivery Rate 05/18 2118 98.6 93 18 137/86 95 - WBC >12,000 or <4,000 or 10% bands? 2 or more SIRS Criteria Met? B/P:137/86 MAP:103 Creatinine >2.0? UA output<0.5ml/kg/hr for 2 hrs? Platelet count >100,000? Lactate >2.0mmol/1? INR >1.2 or PTT > than 60 sec? Evidence of Organ Dysfunction? Provider documented clinical suspician of infection? Y Sepsis Criteria Count: 1 Sepsis Risk: Low Sepsis Risk General Appearance no apparent distress Eye Exam - bilateral eye PERRL, bilateral eye EOMI Ear, Nose, Throat normal ENT inspection Neck supple Respiratory Status No: respiratory distress. Lung Sounds bilateral: lungs clear. 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 No Departure Departure Time of Disposition 2138 Disposition DC Home or Self Care(routine) Clinical Impression Primary Impression: Bronchitis Condition STABLE Patient Instructions DI for Cough -- Adult Additional Instructions fluids and use meds and see pcp for follow up Discharge Counseling Counseled pt/family regarding diagnosis, medications/RX, follow up needs Prescriptions Current Visit Scripts BENZONATATE (Benzonatate) 100 MG PO TID #15 CAP Azithromycin (Zithromycin (Z-LEON) 250MG Tab) 250 MG PO DAILY #6 TAB TAKE TWO (2) TABLETS ON DAY 1, THEN ONE (1) TABLET DAY #2 THRU #5 ED Critical Care Critical Care No at [id number]
--- NOTE | 2017-05-18 21:27 | Emergency Room Report ---
History of Present Illness Time Seen by [id number] Presenting Problem in Triage Pt arrived:Walked Presenting Problem:PT STATES THAT SHE HAS HAD A COLD SINCE LAST NIGHT, INCREASED COUGHING TODAY, NOT ABLE TO COUGH ANYTHING UP. NO KNOWN FEVER. 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 N Clinical Suspician of Infection? Y Mental Status: 1 - Regular (Normal Baseline) Sepsis Risk:Low Sepsis Risk Have you (or family members/close friends) recently traveled outside the [place]? N If Yes, where/when: Have you had exposure to infectious disease within the past month? N TB? Other? 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 but no rash Cardiac Chest Pain Chest pain indicative of cardiac No Timing/Duration this evening Severity moderate ALLERGIES Coded Allergies: Sulfa (Sulfonamide Antibiotics) (Mild, 09/03/16) morphine (Mild, 09/03/16) NSAIDS (Non-Steroidal Anti-Inflamma (UNKNOWN 09/03/16) escitalopram (From LEXAPRO) (UNKNOWN 09/03/16) ibuprofen (From MOTRIN) (12/10/16) Home Medications Active Scripts Ondansetron (Zofran 4MG Odt) 4 MG PO Q6HP PRN NAUSEA AND VOMITING #6 ODT Prov: 03/10/17 Reported Medications ATENOLOL (Atenolol 50MG) 50 MG PO DAILY Omeprazole (Omeprazole 20MG) 20 MG PO DAILY #30 Zolpidem Tartrate (Zolpidem 10MG) 10 MG PO QHS #30 ALBUTEROL (Ventolin Hfa) 1 PUFF IH Q6H6 History Medical History General CAD? No Angina: No ID: No Hypertension? Yes Hyperlipidemia? No CHF? No DVT? No PE? No COPD? No Asthma? Yes Anemia? No GERD? Yes Gastric ulcers? No GI Bleed? No Hernia? No Thyroid Problems? No Hypothyroidism? No CVA? No Seizures? No Diabetes? No End Stage Renal Disease? No UTI? No Stones? No BPH? No GB Disease: Yes Nephritic Syndrome? No Asplenia? No Hepatitis? No Sickle Cell Disease? No Arthritis? No Migraines? No Cataracts? No Glaucoma? No MRSA? No HIV? No TB? No Anxiety? Yes Depression? No Cancer? Yes Site: NECK ([place]) More? 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 denies: ear discharge, epistaxis, throat swelling. Respiratory cough, denies shortness of breath, denies wheezing Cardiovascular denies chest pain, denies palpitations, denies syncope Gastrointestinal denies abdominal pain, denies diarrhea, denies vomiting Genitourinary denies: dysuria, frequency, hesitancy, hematuria. Musculoskeletal denies back pain, denies joint pain, denies joint swelling, denies neck pain Skin denies rash Psychiatric/Neurological denies anxiety, denies seizure Physical Exam Vital Signs Vital Signs Date Time Temp Pulse Resp B/P Pulse O2 O2 Flow FiO2 Ox Delivery Rate 05/18 2118 98.6 93 18 137/86 95 - WBC >12,000 or <4,000 or 10% bands? 2 or more SIRS Criteria Met? B/P:137/86 MAP:103 Creatinine >2.0? UA output<0.5ml/kg/hr for 2 hrs? Platelet count >100,000? Lactate >2.0mmol/1? INR >1.2 or PTT > than 60 sec? Evidence of Organ Dysfunction? Provider documented clinical suspician of infection? Y Sepsis Criteria Count: 1 Sepsis Risk: Low Sepsis Risk General Appearance no apparent distress Eye Exam - bilateral eye PERRL, bilateral eye EOMI Ear, Nose, Throat normal ENT inspection Neck supple Respiratory Status No: respiratory distress. Lung Sounds bilateral: lungs clear. 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 No Departure Departure Time of Disposition 2138 Disposition DC Home or Self Care(routine) Clinical Impression Primary Impression: Bronchitis Condition STABLE Patient Instructions DI for Cough -- Adult Additional Instructions fluids and use meds and see pcp for follow up Discharge Counseling Counseled pt/family regarding diagnosis, medications/RX, follow up needs Prescriptions Current Visit Scripts BENZONATATE (Benzonatate) 100 MG PO TID #15 CAP Azithromycin (Zithromycin (Z-LEON) 250MG Tab) 250 MG PO DAILY #6 TAB TAKE TWO (2) TABLETS ON DAY 1, THEN ONE (1) TABLET DAY #2 THRU #5 ED Critical Care Critical Care No at [id number]
[2017-05-18 21:55] VITALS: BP 113/73
--- OUTSIDE RECORDS SUMMARY | 2017-06-11 00:47 | External Medical Summary Rpt ---
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 Ac BA 71 -1 -[address] ti PE 40 1- 2- 00 00 SI ve NT 66 20 20 48 DE IN 10 17 17 33 1 33 PH 10 AR 0 MA MG CY CA OF PS CY UL NT E HI AN A IN C OK 65 04 05 30 8 00 EA Ac OM 16 -0 -[address] ti ET 20 9- 2- 00 00 SI ve PARKER 52 20 20 47 DE ZI 11 17 17 98 NE 1 82 PH AR 25 MA CY MG OF TA CY BL NT ET HI AN A IN C OM 62 04 [...] NT ET HI AN A IN C OK 65 03 04 30 8 00 EA [...] 30 6- 1- 00 00 SI ve MO 31 20 20 46 DE DE 10 17 17 87 2 1 86 PH AR MG MA CY CA PS OF UL CY E NT HI AN A IN C OK 65 03 04 30 8 00 EA [...] NT ET HI AN A IN C OK 65 03 04 30 8 00 EA [...] CY NT HI AN A IN C OK 65 02 03 30 8 00 EA [...] NT E HI AN A IN C OK 00 02 03 18 6 00 EA Ac OM 60 -1 -[address] ti ET 31 8- 4- 00 00 SI ve PARKER 58 20 20 0 47 DE ZI 65 17 17 66 NE 8 90 PH -D AR M MA SY CY RU P OF CY NT HI AN A IN C CY 00 02 03 90 30 00 EA Ac CL 37 -1 -[address] ti OB 80 3- 7- 00 00 SI ve EN 75 20 20 46 DE ZA 11 17 17 79 OK 0 73 PH IN AR E MA [...] HI BL AN ET A IN C CE 00 02 03 20 10 00 EA Ac FD 09 -0 -[address] ti IN 33 7- 0- 00 00 SI ve IR 16 20 20 47 DE 00 17 17 53 30 6 14 PH 0 AR MG MA CY CA PS OF UL CY E NT HI AN A IN C HY 00 02 03 [address] 40 -0 -[address] ti OC 60 8- 0- 00 00 SI ve OD 12 20 20 47 DE ON 40 17 17 53 -A 5 92 PH CE AR TA MA MO CY NO PH OF CY 7. NT 5- HI 32 AN 5 A IN C BU 00 02 03 [...] HI UL AN E A IN C OK 65 01 03 30 8 00 EA [...] 5 90 PH CE AR TA MA MO CY NO PH OF CY 7. NT [...] 46 DE ZA 11 17 17 79 OK 0 73 PH IN AR E MA 10 CY MG OF CY TA NT BL HI ET AN A IN C OK 65 01 02 30 8 00 EA [...] NT E HI AN A IN C OK 65 01 02 30 8 00 EA [...] CY NT HI AN A IN C OK 65 12 01 30 8 00 EA [...] HI TA AN B A IN C VE 00 12 01 18 25 00 EA Ac NT 17 -2 -[address] ti OL 30 0- 0- 00 00 SI ve IN 68 20 20 46 DE 22 16 17 96 HF 0 28 PH A AR 90 MA CY MC G OF IN CY PARKER NT LE HI R AN A IN C AM 16 12 01 30 10 00 EA Ac OX 71 -2 -[address] ti IC 40 0- 0- 00 00 SI ve IL 29 20 20 46 DE LI 90 16 17 96 N 4 26 PH 50 AR 0 MA MG CY CA OF PS CY UL NT E HI AN A IN C OK 00 12 01 18 6 00 EA Ac OM 60 -2 -[address] ti ET 31 0- 0- 00 00 SI ve PARKER 58 20 20 0 46 DE ZI 65 16 17 96 NE 8 27 PH -D AR M MA SY CY RU P OF CY NT HI AN A IN C LO 00 12 01 30 4 00 EA Ac PE 09 -1 -[address] ti RA 30 3- 3- 00 00 SI ve MO 31 20 20 46 DE DE 10 [...] HI TA AN B A IN C OK 65 12 01 30 8 00 EA [...] HI BL AN ET A IN C OM 68 12 01 [...] 46 DE ZA 11 16 17 79 OK 0 73 PH IN AR E MA 10 CY MG OF CY TA NT BL HI ET AN A IN C MA 00 04 0 No PA 90 -2 P 41 7- Lo 32 98 20 ng 5 26 13 er MG 1 Ac TA ti BL ve ET HY 00 05 09 5 30 30 [...] -0 -[address] 39 EP ti OK 30 4- 0- 00 SI 53 HE [...] 20 DE NS ZA 11 11 11 OK 0 PH DO IN AR N E [...] -0 -[address] 39 EP ti OK 30 4- 1- 00 SI 53 HE [...] 42 11 11 TA 8 PH DO MO AR N N- MA R CA CY [...] 20 DE NS ZA 11 11 11 OK 0 PH DO IN AR N E MA R 10 CY MG OF TA CY BL NT ET HI AN A TO 31 03 08 [...] -0 -[address] 39 EP ti OK 30 4- 1- 00 SI 53 HE [...] OF CY NT HI AN A 59 07 07 4 [...] 20 DE NS ZA 11 11 11 OK 0 PH DO IN AR N E MA R 10 CY MG OF TA CY BL NT ET HI AN A OK 00 07 07 0 12 3 EA 23 WE Ac OM 78 -0 -[address] 24 HR ti ET 11 7- 1- 00 SI 79 MA ve PARKER 83 20 20 DE N ZI 01 11 11 II NE 0 PH I AR WI 25 MA LL CY IA MG M OF E TA BL CY ET NT HI AN A OK 00 07 07 0 12 3 EA 23 SO Ac OM 78 -0 -[address] 16 KA ti ET 11 2- 2- 00 SI 68 N ve PARKER 83 20 20 DE BA ZI 01 11 11 BA NE 0 PH TU AR ND 25 MA E CY O MG OF TA BL CY ET NT HI AN A RA 53 06 [...] -0 -[address] 39 EP ti OK 30 4- 1- 00 SI 53 HE [...] CY OF CY NT HI AN A OK 00 06 06 1 [address] Ac OM 78 -0 -[address] 80 EP ti ET 11 4- 4- 00 SI 89 HE ve PARKER 83 20 20 DE NS ZI 01 11 11 NE 0 PH DO AR N 25 MA R CY MG OF TA BL CY ET NT HI AN A OK 00 06 06 1 [address] Ac OM 78 -0 -[address] 80 EP ti ET 11 4- 4- 00 SI 89 HE ve PARKER 83 20 20 DE NS ZI 01 11 11 NE 0 PH DO AR N 25 MA R CY MG OF TA BL CY ET NT HI AN A DI 00 06 06 0 [address] Ac PH 37 -0 -[address] 80 EP ti EN 80 4- 4 00 SI 90 HE ve OX 41 20 20 DE NS YL 50 11 11 AT 1 PH DO E- AR N AT MA R RO CY P 2. OF 5- 0. CY 02 NT 5 HI AN A TO 13 03 06 5 [address] Ac PI 66 -2 -[address] 88 EP ti RA 80 8- 00 SI 40 HE ve MA 03 20 20 DE NS TE 26 11 11 0 PH DO 50 AR N MA R MG CY TA OF BL ET CY NT HI AN A HY 00 05 06 5 [address] 17 -0 -[address] 39 EP ti OC 22 4- 1 00 SI 51 HE ve HL 08 20 20 DE NS OR 38 11 11 OT 0 PH DO HI AR N AZ MA R ID CY E 25 OF MG CY NT TA HI B AN A ME 00 05 06 5 [address] Ac TO 09 -0 -[address] 39 EP ti OK 30 4- 1- 00 SI 53 HE [...] ST 39 EP ti OC 22 4- 4- 00 SI 51 HE ve HL 08 20 20 DE NS OR 38 11 11 OT 0 PH DO HI AR N AZ MA R ID CY E 25 OF MG CY NT TA HI B AN A ME 00 05 05 5 [address] Ac TO 09 -0 -[address] 39 EP ti OK 30 4- 4- 00 SI 53 HE ve OL 73 20 20 DE NS OL 31 11 11 0 PH DO TA AR N RT MA R RA CY TE OF 50 CY MG NT HI TA AN B A 59 05 05 5 [address] Ac 76 -0 -[address] 39 EP ti 24 4- 4- 00 SI 54 HE ve 80 20 [...] BL ET CY NT HI AN A RA 53 02 05 2 [address] Ac NI 74 -2 -[address] 42 EP ti TI 60 5- 1- 00 SI 09 HE ve DI 25 20 20 DE NS NE 31 11 11 0 PH DO 15 AR N 0 MA R MG CY TA OF BL ET CY NT HI AN A 59 02 05 2 [address] Ac 76 -2 -[address] 42 EP ti 24 5- 1- 00 SI 08 HE ve 80 20 20 DE NS 20 11 11 5 PH DO AR N MA R CY OF CY NT HI AN A CE 00 04 04 0 [address] Ac PH 09 -1 -[address] 18 EP ti AL 33 9- 9 SI 44 HE ve EX 14 20 [...] 42 11 11 TA 8 PH DO MO AR N N- MA R CA CY [...] 6- 6- 00 SI 60 HE ve OK 02 20 20 DE NS ED 20 [...] 42 11 11 TA 8 PH DO MO AR N N- MA R CA CY [...] -2 -[address] 13 EP ti OK 30 4- 8- 00 SI 63 HE [...] 42 11 11 TA 8 PH DO MO AR N N- MA R CA CY FF OF 50 -3 CY 25 NT -4 HI 0 AN A HY 00 10 03 4 30 30 EA [address] 55 -2 -[address] 70 ON ti OX 50 6- 1- 00 SI 07 NE ve YZ 32 20 20 DE LL IN 30 10 11 E 4 PH PATTI PA AR HN M MA 25 CY MG OF CA CY P NT HI AN A TO 13 03 03 3 [...] 42 11 11 TA 8 PH DO MO AR N N- MA R CA CY FF OF 50 -3 CY 25 NT -4 HI 0 AN A ME 00 11 03 4 [address] Ac TO 09 -2 -[address] 13 EP ti OK 30 4- 1- 00 SI 63 HE ve OL 73 20 20 DE NS OL 31 10 11 0 PH DO TA AR N RT MA R RA CY TE OF 50 CY MG NT HI TA AN B A HY 00 03 03 0 [address] 17 -0 -[address] 47 EP ti OC 22 1- 1- 00 SI 85 HE ve HL 08 20 20 DE NS OR 38 11 11 OT 0 PH DO HI AR N AZ MA R ID CY E 25 OF MG CY NT TA HI B AN A CE 00 02 02 0 [address] Ac PH 09 -2 -[address] 42 EP ti AL 33 6- 6- 00 SI 41 HE ve EX 14 20 20 DE NS IN 70 11 11 5 PH DO 50 AR N 0 MA R MG CY CA OF PS UL CY E NT HI AN A 59 02 02 2 [address] Ac 76 -2 -[address] 42 EP ti 24 5- 5- 00 SI 08 HE ve 80 20 20 DE NS 20 11 11 5 PH DO AR N MA R CY OF CY NT HI AN A RA 00 02 02 2 [address] Ac NI 78 -2 -[address] 42 EP ti TI 11 5- 5- 00 SI 09 HE ve DI 88 [...] .0 ST 14 IN ti ON 10 7- SI 31 EY ve ID 33 20 20 DE AZ 40 11 11 MO OL 1 PH CH E AR AE 50 MA L 0 CY S MG OF TA BL CY ET NT HI AN A OK 00 02 02 0 [address] Ac OM 78 -0 -[address] 05 EP ti ET 11 2- 2- 00 SI 65 HE ve PARKER 83 20 20 DE NS ZI 01 11 11 NE 0 PH DO AR N 25 MA R CY MG OF TA BL CY ET NT HI AN A RA 53 01 [...] -2 -[address] 13 EP ti OK 30 4- 5- 00 SI 63 HE [...] CY P NT HI AN A 00 01 01 [...] BL ET CY NT HI AN A 59 12 12 [...] -2 -[address] 13 EP ti OK 30 4- 4- 00 SI 63 HE [...] BL ET CY NT HI AN A 60 12 12 [...] 4- 4- 00 SI 73 HE ve OK 02 20 20 DE NS ED 20 10 10 NI 7 PH DO SO AR N LO MA R NE CY 4 OF MG CY DO NT SE HI PK AN A AM 00 12 12 0 [address] Ac OX 78 -1 -[address] 39 EP ti IC 12 4- 4- 00 SI 70 HE ve IL 61 20 20 DE NS LI 30 10 10 N 5 PH DO 50 AR N 0 MA R MG CY CA OF PS UL CY E NT HI AN A CH 50 12 12 0 [...] BL ET CY NT HI AN A OK 00 12 12 0 [address] Ac OC 09 -0 -[address] 25 EP ti HL 39 3- 3- 00 SI 23 HE ve OR 65 20 20 DE NS PE 20 10 10 RA 1 PH DO ZI AR N NE MA R CY 10 OF MG CY TA NT B HI AN A HY 00 10 11 4 30 30 EA [address] 55 -2 -[address] 70 ON ti OX 50 6- 4- 00 SI 07 NE ve YZ 32 20 20 DE LL IN 30 10 10 E 4 PH PATTI PA AR HN M MA 25 CY MG OF CA CY P NT HI AN A RA 53 08 11 [...] CY NT HI AN A ME 00 11 11 4 [address] Ac TO 09 -2 -[address] 13 EP ti OK 30 4- 4- 00 SI 63 HE ve OL 73 20 20 DE NS OL 31 10 10 0 PH DO TA AR N RT MA R RA CY TE OF 50 CY MG NT HI TA AN B A HY 00 11 11 2 [address] 17 -2 -[address] 12 EP ti OC 22 3- 3- 00 SI 19 HE ve HL 08 20 20 DE NS OR 38 10 10 OT 0 PH DO HI AR N AZ MA R ID CY E 25 OF MG CY NT TA HI B AN A 59 08 11 3 [address] Ac 76 -3 -[address] 90 EP ti 24 0- 3- 00 SI 89 HE ve 80 20 20 DE NS 20 10 10 5 PH DO AR N MA R CY OF CY NT HI AN A AC 00 11 11 0 [...] OF ET CY NT HI AN A OK 00 11 11 0 20 5 EA [...] ST 70 ON ti RA 80 6- 6 00 SI 09 NE ve MA 03 [...] # TA 10 BL 05 ET 91 ME 00 05 10 5 [address] Ac TO 09 -2 -[address] 73 EP ti OK 30 5- 4- 00 SI 22 HE [...] HI AN A HY 00 09 10 1 30 30 [...] 4- 4- 00 SI 79 HE ve OK 02 20 20 DE NS ED 20 [...] -2 -[address] 73 EP ti OK 30 5- 2- 00 SI 22 HE [...] TA HI B AN A 00 09 1 [address] [...] OF ET CY NT HI AN A OK 00 08 08 0 16 4 EA [...] 0- 0- 00 SI 89 HE ve OK 50 20 20 DE NS AM 91 [...] -2 -[address] 73 EP ti OK 30 5- 3- 00 SI 22 HE [...] 20 20 DE CE 42 10 10 MO TA 8 PH CH MO AR AE N- MA L CA CY [...] -2 -[address] 73 EP ti OK 30 5- 5- 00 SI 22 HE [...] -2 -[address] 73 EP ti OK 30 5- 6- 00 SI 22 HE [...] NT BL HI ET AN A 00 06 06 1 [address] Ac 55 -0 -[address] 83 EP ti 50 2- 7- 00 SI 56 HE ve 58 20 20 DE NS 50 10 10 2 PH DO AR N MA R CY OF CY NT HI AN A AC 00 01 06 5 [...] CY CA NT P HI AN A CE 00 06 06 [...] UL CY E NT HI AN A OK 00 06 06 0 12 3 EA [...] ST 98 EP ti RA 40 9 7- 00 SI 23 HE ve LI 61 20 20 DE NS NE 30 10 10 6 PH DO HC AR N L MA R 10 CY 0 MG OF TA CY BL NT ET HI AN A ME 00 05 05 5 [address] Ac TO 09 -2 -[address] 73 EP ti OK 30 5- 5- 00 SI 22 HE [...] 20 RT 2 AC 90 10 10 MO 1 PH CH SO AR AE D [...] 20 20 DE IN 70 10 10 MO 5 PH CH 50 AR AE 0 MA L MG CY S CA OF PS UL CY E NT HI AN A ME 00 12 04 4 [address] Ac TO 09 -2 -[address] 69 EP ti OK 30 2- 4- 00 SI 71 HE [...] CY NT HI AN A HY 00 01 04 5 [address] 55 -1 -[address] 98 EP ti OX 50 5- 7- 00 SI 83 HE ve YZ 32 20 20 DE NS IN 30 10 10 E 4 PH DO PA AR N M MA R 25 CY MG OF CA CY P NT HI AN A AC 00 01 [...] P HI AN A IN 00 01 04 [...] ST 19 EP ti IC 12 4- 4 00 SI 37 HE ve IL 61 20 20 DE NS LI 30 10 10 N 5 PH KE 50 AR 0 MA N MG CY C CA OF PS UL CY E NT HI AN A AC 00 04 04 0 [address] Ac ET 40 -1 -[address] 19 EP ti AM 60 4- 4 00 SI 38 HE ve IN 48 [...] UL CY E NT HI AN A OK 00 04 04 0 16 3 EA [...] ST 98 EP ti RA 40 9- 00 SI 23 HE ve LI 61 20 20 DE NS NE 30 10 10 6 PH DO HC AR N L MA R 10 CY 0 MG OF TA CY BL NT ET HI AN A OK 00 03 03 0 [address] Ac OC 09 -2 -[address] 98 EP ti HL 39 9- 9 00 SI 24 HE ve OR 65 20 20 DE NS PE 20 10 10 RA 1 PH DO ZI AR N NE MA R CY 10 OF MG CY TA NT B HI AN A RA 53 11 03 5 [address] Ac NI 74 -1 -[address] 15 EP ti TI 60 6- 2 00 SI 04 HE ve DI 25 20 20 DE NS NE 30 09 10 5 PH DO 15 AR N 0 MA R MG CY TA OF BL ET CY NT HI AN A ME 00 12 03 4 [address] Ac TO 09 -2 -[address] 69 EP ti OK 30 2- 2- 00 SI 71 HE ve OL 73 20 20 DE NS OL 31 09 10 0 PH DO TA AR N RT MA R RA CY TE OF 50 CY MG NT HI TA AN B A OK 00 03 03 12 3 RI 82 [...] ST 98 ON ti ME 12 5- 9- 00 SI 84 NE ve TH 32 [...] CY CA NT P HI AN A OK 00 03 03 0 28 7 EA [...] HI ET AN A AC 00 01 02 01 60 30 EA 15 OC Ac ET 55 -1 -[address] 98 ON ti AZ 50 5- 6- 00 SI 82 NE ve OL 51 20 20 DE LL AM 30 10 10 ID 2 PH PATTI E AR HN ER MA CY 50 0 OF MG CY NT CA HI P AN A NO 00 01 02 00 90 30 EA 15 OC Ac RT 59 -1 -[address] 98 ON ti RI 15 5- 6- 00 SI 85 NE ve PT 78 20 20 DE LL YL 60 10 10 IN 1 PH PATTI E AR HN HC MA L CY 10 OF MG CY NT CA HI P AN A IN 00 01 02 01 60 10 EA 15 OC Ac DO 78 -1 -[address] 98 ON ti ME 12 5- 6- 00 SI 84 NE ve TH 32 20 20 DE LL AC 51 10 10 IN 0 PH PATTI AR HN 25 MA CY MG OF CA CY PS NT UL HI E AN A AZ 00 01 02 00 6. 5 WA 70 GA Ac IT 78 -2 -1 00 L- 55 IN ti HR 11 3- 1- 0 MA 65 EY ve OM 49 20 20 RT 3 YC 66 10 10 MO IN 8 PH CH AR AE 25 MA L 0 CY S MG #5 TA 91 BL ET NO 00 08 01 04 90 30 EA 13 OC Ac RT 59 -2 -[address] 98 ON ti RI 15 5- 8- 00 SI 90 NE ve PT 78 20 20 DE LL YL 60 09 10 IN 1 PH PATTI E AR HN HC MA L CY 10 OF MG CY NT CA HI P AN A IN 00 01 01 00 60 10 EA 15 OC Ac DO 78 -1 -[address] 98 ON ti ME 12 5- 8- 00 SI 84 NE ve TH 32 20 20 DE LL AC 51 10 10 IN 0 PH PATTI AR HN 25 MA CY MG OF CA CY PS NT UL HI E AN A AC 00 01 01 00 60 30 EA 15 OC Ac ET 55 -1 -[address] 98 ON ti AZ 50 5- 8- 00 SI 82 NE ve OL 51 20 20 DE LL AM 30 10 10 ID 2 PH PATTI E AR HN ER MA CY 50 0 OF MG CY NT CA HI P AN A ME 00 12 01 01 [address] Ac TO 09 -2 -[address] 69 EP ti OK 30 2- 8- 00 SI 71 HE ve OL 73 20 20 DE NS OL 31 09 10 0 PH DO TA AR N RT MA R RA CY TE OF 50 CY NT MG HI AN TA A B RA 53 11 01 02 [address] Ac NI 74 -1 -[address] 15 EP ti TI 60 6- 8- 00 SI 04 HE ve DI 25 20 20 DE NS NE 30 09 10 5 PH DO 15 AR N 0 MA R MG CY TA OF BL CY ET NT HI AN A HY 00 01 01 00 [...] NT BL HI ET AN A 00 12 01 00 [address] Ac 55 -3 -[address] 78 EP ti 50 0- 4- 00 SI 89 HE ve 58 20 20 DE NS 50 09 10 2 PH DO AR N MA R CY OF CY NT HI AN A RA 53 11 12 01 60 30 [...] -2 -[address] 69 EP ti OK 30 2- 1- 00 SI 71 HE ve OL 73 20 20 DE NS OL 31 09 09 0 PH DO TA AR N RT MA R RA CY TE OF 50 CY NT MG HI AN TA A B 00 10 12 02 [address] Ac 18 -2 -3 .0 L- 42 EP ti 50 4- 1- 00 MA 70 HE ve 61 20 20 RT 4 NS 30 09 09 1 PH DO AR N MA R CY #5 91 CY 00 12 12 00 15 5 EA 15 WE Ac CL 59 -1 -[address] 59 HR ti OB 15 5- 1- 00 SI 46 MA ve EN 65 20 20 DE N ZA 80 09 09 II OK 1 PH I IN AR WI E MA LL 10 CY IA M MG OF E CY TA NT BL HI ET AN A NO 00 08 12 03 90 30 [...] BL CY ET NT HI AN A NA 00 11 12 00 [address] Ac OK 09 -1 -[address] 15 EP ti OX 30 6- 3- 00 SI 05 HE ve EN 14 20 20 DE NS 90 09 09 50 1 PH DO 0 AR N MG MA R CY TA BL OF ET CY NT HI AN A 00 10 12 01 [address] Ac 18 -2 -0 .0 L- 42 EP ti 50 4- 3- 00 MA 70 HE ve 61 20 20 RT 4 NS 30 09 09 1 PH DO AR N MA R CY #5 91 ME 00 07 12 04 [address] Ac TO 09 -1 -[address] 53 EP ti OK 30 7- 3- 00 SI 68 HE ve OL 73 20 20 DE NS OL 31 09 09 0 PH DO TA AR N RT MA R RA CY TE OF 50 CY NT MG HI AN TA A B SE 16 11 12 00 [address] Ac RT 71 -1 -[address] 15 EP ti RA 40 6- 3- 00 SI 06 HE ve LI 61 20 20 DE NS NE 30 09 09 6 PH DO HC AR N L MA R 10 CY 0 MG OF CY TA NT BL HI ET AN A NO 00 08 11 02 90 30 EA 13 OC Ac RT 59 -2 -[address] 98 ON ti RI 15 5- 9- 00 SI 90 NE ve PT 78 20 20 DE LL YL 60 09 09 IN 1 PH PATTI E AR HN HC MA L CY 10 OF MG CY NT CA HI P AN A CE 00 11 11 00 21 7 RI 80 GA Ac PH 14 -0 -1 .0 TE 72 IN ti AL 39 4- 9- 00 67 EY ve EX 89 20 20 AI IN 70 09 09 D MO 1 PH CH 50 AR AE 0 M L MG #3 S 93 CA 8 PS UL E 00 11 11 00 8. 2 RI 80 GA Ac 40 -0 -1 00 TE 72 IN ti 60 4- 9- 0 65 EY ve 35 20 20 AI 70 09 09 D MO 5 PH CH AR AE M L #3 S 93 8 CI 00 11 11 00 14 7 EA 15 GA Ac OK 14 -1 -[address] 07 IN ti OF 39 0- 9- 00 SI 01 EY ve LO 92 20 20 DE XA 80 09 09 MO CI 1 PH CH N AR AE HC MA L L CY S 50 0 OF MG CY NT TA HI B AN A AC 00 08 11 02 60 30 EA 13 OC Ac ET 55 -2 -[address] 98 ON ti AZ 50 5- 5- 00 SI 88 NE ve OL 51 20 20 DE LL AM 30 09 09 ID 2 PH PATTI E AR HN ER MA CY 50 0 OF MG CY NT CA HI P AN A 00 10 11 00 [address] Ac 18 -2 -0 .0 L- 42 EP ti 50 4- 5- 00 MA 70 HE ve 61 20 20 RT 4 NS 30 09 09 1 PH DO AR N MA R CY #5 91 ME 00 07 11 03 [address] Ac TO 09 -1 -[address] 53 EP ti OK 30 7- 5- 00 SI 68 HE ve OL 73 20 20 DE NS OL 31 09 09 0 PH DO TA AR N RT MA R RA CY TE OF 50 CY NT MG HI AN TA A B SE 16 07 10 02 15 30 [...] HI ET AN A AC 00 08 10 01 [...] HI P AN A IN 00 08 10 01 40 6 EA 13 OC Ac DO 78 -2 -[address] 98 ON ti ME 12 5- 8- 00 SI 89 NE ve TH 32 20 20 DE LL AC 51 09 09 IN 0 PH PATTI AR HN 25 MA CY MG OF CA CY PS NT UL HI E AN A NO 00 08 10 01 90 30 [...] -1 -[address] 53 EP ti OK 30 7- 4- 00 SI 68 HE ve OL 73 20 20 DE NS OL 31 09 09 0 PH DO TA AR N RT MA R RA CY TE OF 50 CY NT MG HI AN TA A B SE 16 07 09 01 15 30 [...] CA HI P AN A NO 00 08 09 00 90 30 [...] PS NT UL HI E AN A ME 00 07 08 01 [address] Ac TO 09 -1 -[address] 53 EP ti OK 30 7- 7- 00 SI 68 HE ve OL 73 20 20 DE NS OL 31 09 09 0 PH DO TA AR N RT MA R RA CY TE OF 50 CY NT MG HI AN TA A B BU 00 08 08 00 [address] Ac TA 59 -1 -[address] 90 EP ti LB 13 9- 7- 00 SI 95 HE ve -A 36 20 20 DE NS CE 90 09 09 TA 5 PH DO MO AR N N- MA R CA CY FF OF 50 CY -3 NT 25 HI -4 AN 0 A HY 00 07 08 01 [address] 55 -1 -[address] 53 EP ti OX 50 7- 7- 00 SI 69 HE ve YZ 32 20 20 DE NS IN 30 09 09 E 4 PH DO PA AR N M MA R 25 CY MG OF CY CA NT P HI AN A 64 02 08 04 [address] Ac 67 -0 -[address] 39 EP ti 90 9- 3- 00 SI 32 HE ve 90 20 20 DE NS 60 09 09 3 PH DO AR N MA R CY OF CY NT HI AN A SE 16 07 08 00 [address] Ac RT 71 -3 -[address] 68 EP ti RA 40 1- 3- 00 SI 56 HE ve LI 61 20 20 DE NS NE 30 09 09 6 PH DO HC AR N L MA R 10 CY 0 MG OF CY TA NT BL HI ET AN A BU 00 08 08 00 12 3 EA 13 GA Ac TA 59 -0 -[address] 75 IN ti LB 13 6- 3- 00 SI 11 EY ve -A 36 20 20 DE CE 90 09 09 MO TA 5 PH CH MO AR AE N- MA L CA CY S FF OF 50 CY -3 NT 25 HI -4 AN 0 A BU 00 07 07 00 12 3 EA 13 GA Ac TA 59 -2 -[address] 60 IN ti LB 13 3- 0- 00 SI 05 EY ve -A 36 20 20 DE CE 90 09 09 MO TA 5 PH CH MO AR AE N- MA L CA CY S FF OF 50 CY -3 NT 25 HI -4 AN 0 A DI 00 07 07 00 14 7 WA 70 GA Ac CL 78 -1 -3 .0 L- 28 IN ti OF 11 1- 0- 00 MA 16 EY ve EN 78 20 20 RT 3 AC 90 09 09 MO 1 PH CH SO AR AE D MA L EC CY S 75 #5 91 MG TA B HY 00 07 07 00 [address] 55 -1 -[address] 53 EP ti OX 50 7- 0- 00 SI 69 HE ve YZ 32 20 20 DE NS IN 30 09 09 E 4 PH DO PA AR N M MA R 25 CY MG OF CY CA NT P HI AN A ME 00 07 07 00 [address] Ac TO 09 -1 -[address] 53 EP ti OK 30 7- 0- 00 SI 68 HE ve OL 73 20 20 DE NS OL 31 09 09 0 PH DO TA AR N RT MA R RA CY TE OF 50 CY NT MG HI AN TA A B TO 60 06 07 01 [address] Ac PI 50 -0 -[address] 03 EP ti RA 52 5- 0- 00 SI 08 HE ve MA 76 20 20 DE NS TE 00 09 09 6 PH DO 25 AR N MA R MG CY TA OF BL CY ET NT HI AN A BU 00 07 07 00 12 2 EA 13 GA Ac TA 60 -0 -[address] 41 IN ti LB 32 7- 6- 00 SI 30 EY ve -A 54 20 20 DE CE 42 09 09 MO TA 8 PH CH MO AR AE N- MA L CA CY S FF OF 50 CY -3 NT 25 HI -4 AN 0 A 00 06 07 00 8. 2 WA 44 GA Ac 40 -2 -0 00 L- 77 IN ti 60 0- 2- 0 MA 57 EY ve 35 20 20 RT 4 70 09 09 MO 5 PH CH AR AE MA L CY S #5 91 SE 16 04 07 02 [address] Ac RT 71 -2 -[address] 43 EP ti RA 40 1- 2- 00 SI 92 HE ve LI 61 20 20 DE NS NE 30 09 09 6 PH DO HC AR N L MA R 10 CY 0 MG OF CY TA NT BL HI ET AN A 00 06 07 00 10 5 WA 70 MA Ac 14 -1 -0 .0 L- 24 RT ti 39 3- 2- 00 MA 58 IN ve 90 20 20 RT 7 J 80 09 09 1 PH MA AR NG MA AN CY MD #5 91 PS C PEREZ 53 06 07 00 10 5 WA 70 MA Ac LF 74 -1 -0 .0 L- 24 RT ti AM 60 3- 2- 00 MA 58 IN ve ET 27 20 20 RT 6 J HO 20 09 09 XA 5 PH MA ZO AR NG LE MA AN -T CY MP MD #5 DS 91 PS C TA BL ET TO 50 06 06 00 60 30 [...] NT P HI AN A 49 02 06 03 [address] Ac 88 -0 -[address] 39 EP ti 40 9- 8- 00 SI 32 HE ve 54 20 20 DE NS 41 09 09 0 PH DO AR N MA R CY OF CY NT HI AN A ME 00 02 06 04 [address] Ac TO 09 -0 -[address] 39 EP ti OK 30 9- 8- 00 SI 33 HE ve OL 73 20 20 DE NS OL 31 09 09 0 PH DO TA AR N RT MA R RA CY TE OF 50 CY NT MG HI AN TA A B SE 65 04 06 01 15 30 [...] 20 20 DE CE 90 09 09 MO TA 5 PH CH MO AR AE N- MA L CA CY S FF OF 50 CY -3 NT 25 HI -4 AN 0 A ME 00 02 05 03 [address] Ac TO 09 -0 -[address] 39 EP ti OK 30 9- 1- 00 SI 33 HE ve OL 73 20 20 DE NS OL 31 09 09 0 PH DO TA AR N RT MA R RA CY TE OF 50 CY NT MG HI AN TA A B TO 50 12 05 04 [address] Ac PA 45 -2 -[address] 83 EP ti MA 80 6- 1- 00 SI 08 HE ve X 63 20 20 DE NS 25 96 08 09 5 PH DO MG AR N MA R TA CY BL ET OF CY NT HI AN A HY 00 04 05 01 60 20 [...] NT P HI AN A ME 00 02 04 02 [address] Ac TO 09 -0 -[address] 39 EP ti OK 30 9- 3- 00 SI 33 HE [...] CY OF CY NT HI AN A OK 00 04 04 00 12 3 EA 12 WI Ac OM 78 -0 -[address] 25 CK ti ET 11 8- 3- 00 SI 91 ER ve PARKER 83 20 20 DE ZI 01 09 09 JE NE 0 PH FF AR RE 25 MA Y CY MG OF TA CY BL NT ET HI AN A OK 00 03 04 01 12 3 EA [...] CY OF CY NT HI AN A OK 00 03 03 00 [address] Ac OC 09 -1 -[address] 89 EP ti HL 39 3- 6- 00 SI 23 HE ve OR 65 20 20 DE NS PE 20 09 09 RA 1 PH DO ZI AR N NE MA R CY 10 OF MG CY NT TA HI B AN A HY 00 03 03 00 [...] NT P HI AN A ME 00 02 03 01 [address] Ac TO 09 -0 -[address] 39 EP ti OK 30 9- 6- 00 SI 33 HE [...] OF CY NT HI AN A 49 02 03 01 [address] Ac 88 -0 -[address] 39 EP ti 40 9- 6- 00 SI 32 HE ve 54 20 20 DE NS 41 09 09 0 PH DO AR N MA R CY OF CY NT HI AN A OK 00 02 03 00 [address] Ac OC 09 -2 -[address] 66 EP ti HL 39 7- 2- 00 SI 66 HE ve OR 65 20 20 DE NS PE 20 09 09 RA 1 PH DO ZI AR N NE MA R CY 10 OF MG CY NT TA HI B AN A 00 12 03 02 60 [...] AN A ME 00 02 02 [address] Ac TO 09 -0 -[address] 39 EP ti OK 30 9- 6- 00 SI 33 HE ve OL 73 20 20 DE NS OL 31 09 09 0 PH DO TA AR N RT MA R RA CY TE OF 50 CY NT MG HI AN TA A B HY 00 12 02 02 [address] 55 -2 -[address] 83 EP ti OX 50 6- 6- 00 SI 09 HE ve YZ 32 20 20 DE NS IN 30 08 09 E 4 PH DO PA AR N M MA R 25 CY MG OF CY CA NT P HI AN A 49 02 02 00 60 [...] 2- 6- 00 SI 32 EY ve OK 02 20 20 DE ED 20 09 09 MO NI 7 PH CH SO AR AE LO MA L NE CY S 4 OF MG CY NT DO HI SE AN PK A 63 02 02 00 21 7 EA 11 GA Ac 30 -1 -[address] 44 IN ti 40 2- 6- 00 SI 31 EY ve 65 20 20 DE 70 09 09 MO 5 PH CH AR AE MA L CY S OF CY NT HI AN A 00 12 02 01 [address] Ac 04 -2 -[address] 83 EP ti 50 6- 2- 00 SI 08 HE ve 63 20 20 DE NS 96 08 09 5 PH DO AR N MA R CY OF CY NT HI AN A 59 02 02 00 8. [address] Ac 31 -0 -[address] 36 EP ti 00 5- 2- 0 SI 42 HE ve 57 20 20 DE NS 92 09 09 0 PH DO AR N MA R CY OF CY NT HI AN A OK 00 01 01 00 28 7 EA [...] ET NT HI AN A HY 00 12 01 [address] 55 -2 -[address] 83 EP ti OX 50 6- 0- 00 SI 09 HE ve YZ 32 20 20 DE NS IN 30 08 09 E 4 PH DO PA AR N M MA R 25 CY MG OF CY CA NT P HI AN A 49 08 01 04 [address] Ac 88 -1 -[address] 03 EP ti 40 1- 5- 00 SI 47 HE ve 54 20 20 DE NS 41 08 09 0 PH DO AR N MA R CY OF CY NT HI AN A ME 00 01 00 [address] Ac TO 09 -0 -[address] 03 EP ti OK 30 9- 5- 00 SI 40 HE ve OL 73 20 20 DE NS OL 31 09 09 0 PH DO TA AR N RT MA R RA CY TE OF 50 CY NT MG HI AN TA A B 00 12 00 [address] Ac 04 -2 -[address] 83 EP ti 50 6- 1- 00 SI 08 HE ve 63 20 20 DE NS 96 08 09 5 PH DO AR N MA R CY OF CY NT HI AN A DI 00 12 01 00 14 7 EA 10 GA Ac CL 78 -2 -[address] 80 IN ti OF 11 2- 1- 00 SI 15 EY ve EN 78 20 20 DE AC 90 08 09 MO 1 PH CH SO AR AE D MA L EC CY S 75 OF CY MG NT HI TA AN B A HY 00 12 01 00 [address] 55 -2 -[address] 83 EP ti OX 50 6- 1- 00 SI 09 HE ve YZ 32 20 20 DE NS IN 30 08 09 E 4 PH DO PA AR N M MA R 25 CY MG OF CY CA NT P HI AN A HY 00 12 12 00 [address] 55 -0 -[address] 53 EP ti OX 50 3- 8- 00 SI 02 HE ve YZ 32 20 20 DE NS IN 30 08 08 E 4 PH DO PA AR N M MA R 25 CY MG OF CY CA NT P HI AN A 00 01 12 11 [address] Ac 09 -0 -1 .0 L- 55 EP ti 37 8- 8- 00 MA 17 HE ve 17 20 20 RT 7 NS 75 08 08 6 PH DO AR N MA R CY #5 91 ME 00 08 12 04 [address] Ac TO 09 -1 -[address] 03 EP ti OK 30 1- 8- 00 SI 48 HE ve OL 73 [...] 20 DE NS ZA 80 08 08 OK 1 PH DO IN AR N E MA R 10 CY MG OF CY TA NT BL HI ET AN A 49 08 12 03 [address] Ac 88 -1 -[address] 03 EP ti 40 1- 8- 00 SI 47 HE ve 54 20 20 DE NS 41 08 08 0 PH DO AR N MA R CY OF CY NT HI AN A OK 00 11 12 00 28 7 EA [...] 20 DE NS ZA 80 08 08 OK 1 PH DO IN AR N E [...] CY NT HI AN A BU 00 11 11 00 [address] Ac TA 59 -0 -[address] 11 EP ti LB 13 3- 0- 00 SI 02 HE ve -A 36 20 20 DE NS CE 90 08 08 TA 5 PH DO MO AR N N- MA R CA CY FF OF 50 CY -3 NT 25 HI -4 AN 0 A OK 00 11 11 01 [address] Ac OC 09 -0 -[address] 15 EP ti HL 39 5- 0- 00 SI 28 HE ve OR 65 20 20 DE NS PE 20 08 08 RA 1 PH DO ZI AR N NE MA R CY 10 OF MG CY NT TA HI B AN A ME 00 08 11 03 [address] Ac TO 09 -1 -[address] 03 EP ti OK 30 1- 0- 00 SI 48 HE [...] CY CA NT P HI AN A 64 08 11 02 [address] Ac 67 -1 -[address] 03 EP ti 90 1- 0- 00 SI 47 HE ve 90 20 20 DE NS 60 08 08 3 PH DO AR N MA R CY OF CY NT HI AN A 00 01 11 10 [address] Ac 09 -0 -2 .0 L- 55 EP ti 37 8- 0- 00 MA 17 HE ve 17 20 20 RT 7 NS 75 08 08 6 PH DO AR N MA R CY #5 91 00 11 11 00 [address] Ac 78 -0 -[address] 11 EP ti 11 3- 0- 00 SI 03 HE ve 26 20 20 DE NS 20 08 08 1 PH DO AR N MA R CY OF CY NT HI AN A BU 00 10 11 01 [address] Ac TA 59 -2 -[address] 93 EP ti LB 13 0- 7- 00 SI 33 HE ve -A 36 20 20 DE NS CE 90 08 08 TA 5 PH DO MO AR N N- MA R CA CY [...] CY CA NT P HI AN A OK 00 10 11 00 [address] Ac OC 09 -2 -[address] 02 EP ti HL 39 5- 7- 00 SI 05 HE ve OR 65 20 20 DE NS PE 20 08 08 RA 1 PH DO ZI AR N NE MA R CY 10 OF MG CY NT TA HI B AN A OK 00 10 11 [address] Ac OM 78 -2 -[address] 93 EP ti ET 11 0- 7- 00 SI 32 HE ve PARKER 83 20 20 DE NS ZI 01 08 08 NE 0 PH DO AR N 25 MA R CY MG OF TA CY BL NT ET HI AN A 00 01 10 09 [address] Ac 09 -0 -2 .0 L- 55 EP ti 37 8- 3- 00 MA 17 HE ve 17 20 20 RT 7 NS 75 08 08 6 PH DO AR N MA R CY #5 91 49 08 10 01 60 30 EA [...] -1 -[address] 03 t ti OK 30 1- 3- 00 SI 48 Av ve OL 73 20 20 DE ai OL 31 08 08 la 0 PH bl TA AR e RT MA RA CY TE OF 50 CY NT MG HI AN TA A B 17 07 10 01 17 17 EA 98 No Ac 27 -2 -[address] 84 t ti 00 5- 3- 00 SI 01 Av ve 72 20 20 DE ai 10 08 08 la 1 PH bl AR e MA CY OF CY NT HI AN A 00 09 10 01 60 30 EA [...] ST 38 t ti OX 50 8- 9 00 SI 59 Av ve YZ 32 20 20 DE ai IN 30 08 08 la E 4 PH bl PA AR e M MA 25 CY MG OF CY CA NT P HI AN A CY 00 10 10 00 15 5 EA 99 No Ac CL 59 -0 -[address] 69 t ti OB 15 SI 09 Av ve EN 65 20 20 DE ai ZA 80 08 08 la OK 1 PH bl IN AR e E [...] CY BL NT ET HI AN A OK 00 09 09 00 12 3 EA 99 No Ac OM 78 -0 -[address] 38 t ti ET 11 6 SI 60 Av ve PARKER 83 20 20 DE ai ZI 01 08 08 la NE 0 PH bl AR e 25 MA CY MG OF TA CY BL NT ET HI AN A HY 00 09 09 00 60 20 EA [address] 55 -0 -[address] 38 t ti OX 50 8- 6 00 SI 59 Av ve YZ 32 20 20 DE ai IN 30 08 08 la E 4 PH bl PA AR e M MA 25 CY MG OF CY CA NT P HI AN A ME 00 08 09 01 30 30 EA 99 No Ac TO 09 -1 -[address] 03 t ti OK 30 - 6 00 SI 48 Av ve OL 73 20 20 DE ai OL 31 08 08 la 0 PH bl TA AR e RT MA RA CY TE OF 50 CY NT MG HI AN TA A B 00 01 09 08 [address] Ac 09 -0 -2 .0 L- 55 EP ti 37 8- 6- 00 MA 17 HE ve 17 20 20 RT 7 NS 75 08 08 6 PH DO AR N MA R CY #5 91 00 09 09 00 60 30 EA 99 No Ac 04 -0 -[address] 38 t ti 50 8- 6- 00 SI 58 Av ve 63 20 20 DE ai 96 08 08 la 5 PH bl AR e MA CY OF CY NT HI AN A 00 09 09 00 28 6 EA 99 No Ac 78 -0 -[address] 38 t ti 11 8- 6- 00 SI 61 Av ve 26 20 20 DE ai 20 08 08 la 1 PH bl AR e MA CY OF CY NT HI AN A 60 08 09 00 14 7 [...] ST 27 t ti YL 15 9- 1- 00 SI 42 Av ve OK 02 20 20 DE ai ED 20 08 08 la NI 7 PH bl SO AR e LO MA NE CY 4 OF MG CY NT DO HI SE AN PK A 00 05 08 03 60 30 EA 97 No Ac 04 -1 -[address] 98 t ti 50 4- 8- 00 SI 35 Av ve 63 20 20 DE ai 96 08 08 la 5 PH bl AR e MA CY OF CY NT HI AN A PEREZ 53 08 08 00 20 10 EA 99 No Ac LF 48 -1 -[address] 11 t ti AM 90 6- 8- 00 SI 20 Av ve ET 14 20 20 DE ai HO 60 08 08 la XA 1 PH bl ZO AR e LE MA -T CY MP OF DS CY NT TA HI BL AN ET A HY 00 07 08 01 60 20 EA [address] 55 -2 -[address] 88 t ti OX 50 9- 8- 00 SI 57 Av ve YZ 32 20 20 DE ai IN 30 08 08 la E 4 PH bl PA AR e M MA 25 CY MG OF CY CA NT P HI AN A 00 07 08 01 24 6 EA 98 No Ac 78 -1 -[address] 76 t ti 11 8- 8- 00 SI 40 Av ve 26 20 20 DE ai 20 08 08 la 1 PH bl AR e MA CY OF CY NT HI AN A 49 08 08 00 60 30 EA 99 No Ac 88 -1 -[address] 03 t ti 40 1 8 00 SI 47 Av ve 54 20 20 DE ai 40 08 08 la 2 PH bl AR e MA CY OF CY NT HI AN A 00 01 08 07 [address] Ac 09 -0 -2 .0 L- 55 EP ti 37 8 MA 17 HE ve 17 20 20 RT 7 NS 75 08 08 6 PH DO AR N MA R CY #5 91 ME 00 08 08 00 30 30 EA 99 No Ac TO 09 -1 -[address] 03 t ti OK 30 8 SI 48 Av ve OL 73 20 20 DE ai OL 31 08 08 la 0 PH bl TA AR e RT MA RA CY TE OF 50 CY NT MG HI AN TA A B HY 00 07 08 00 60 20 EA [address] 55 -2 -[address] 88 t ti OX 50 SI 57 Av ve YZ 32 20 20 DE ai IN 30 08 08 la E 4 PH bl PA AR e M MA 25 CY MG OF CY CA NT P HI AN A 00 07 08 00 24 6 EA 98 No Ac 78 -1 -[address] 76 t ti 11 SI 40 Av ve 26 20 20 DE ai 20 08 08 la 1 PH bl AR e MA CY OF CY NT HI AN A BU 00 07 08 00 28 5 EA 98 No Ac TA 59 -1 -[address] 72 t ti LB 13 5 SI 69 Av ve -A 36 20 20 DE ai CE 90 08 08 la TA 5 PH bl MO AR e N- MA CA CY FF OF 50 CY -3 NT 25 HI -4 AN 0 A 17 07 08 00 17 17 EA 98 No Ac 27 -2 -[address] 84 t ti 00 5 SI 01 Av ve 72 20 20 DE ai 10 08 08 la 1 PH bl AR e MA CY OF CY NT HI AN A PEREZ 53 07 08 00 30 15 EA 98 No Ac LF 48 -1 -[address] 76 t ti AM 90 8 SI 41 Av ve ET 14 20 20 DE ai HO 60 08 08 la XA 1 PH bl ZO AR e LE MA -T CY MP OF DS CY NT TA HI BL AN ET A 49 07 07 00 60 30 [...] -0 -[address] 66 t ti OK 30 9- 7- 00 SI 10 Av ve OL 73 20 20 DE ai OL 31 08 08 la 0 PH bl TA AR e RT MA RA CY TE OF 50 CY NT MG HI AN TA A B 00 05 07 02 60 30 EA 97 No Ac 04 -1 -[address] 98 t ti 50 4- 7- 00 SI 35 Av ve 63 20 20 DE ai 96 08 08 la 5 PH bl AR e MA CY OF CY NT HI AN A BU 00 06 07 01 28 5 EA 98 No Ac TA 59 -2 -[address] 51 t ti LB 13 6- 7- 00 SI 19 Av ve -A 36 20 20 DE ai CE 90 08 08 la TA 5 PH bl MO AR e N- MA CA CY FF OF 50 CY -3 NT 25 HI -4 AN 0 A HY 00 06 07 01 60 20 EA [address] 55 -1 -[address] 41 t ti OX 50 8- 7- 00 SI 58 Av ve YZ 32 20 20 DE ai IN 30 08 08 la E 4 PH bl PA AR e M MA 25 CY MG OF CY CA NT P HI AN A 00 01 07 06 [address] Ac 09 -0 -1 .0 L- 55 EP ti 37 8- 7- 00 MA 17 HE ve 17 20 20 RT 7 NS 75 08 08 6 PH DO AR N MA R CY #5 91 00 06 07 00 28 6 EA 98 No Ac 78 -2 -[address] 52 t ti 11 7- 3- 00 SI 28 Av ve 26 20 20 DE ai 20 08 08 la 1 PH bl AR e MA CY OF CY NT HI AN A 00 01 07 05 15 30 WA 69 No Ac 09 -0 -0 .0 L- 55 t ti 37 8- 3- 00 MA 17 Av ve 17 20 20 RT 7 ai 75 08 08 la 6 PH bl AR e MA CY #5 91 BU 00 06 07 00 28 5 EA 98 No Ac TA 59 -2 -[address] 51 t ti LB 13 6- 3- 00 SI 19 Av ve -A 36 20 20 DE ai CE 90 08 08 la TA 5 PH bl MO AR e N- MA CA CY FF OF 50 CY -3 NT 25 HI -4 AN 0 A OK 00 06 07 00 12 3 EA 98 No Ac OM 78 -0 -[address] 29 t ti ET 11 9- 3- 00 SI 69 Av ve PARKER 83 20 20 DE [...] NT HI AN A RA 00 01 07 05 60 30 WA 69 No Ac NI 17 -0 -0 .0 L- 55 t ti TI 24 8- 3- 00 MA 18 Av ve DI 35 20 20 RT 0 ai NE 77 08 08 la 0 PH bl 15 AR e 0 MA MG CY TA #5 BL 91 ET 00 01 07 05 30 30 WA 69 No Ac 78 -0 -0 .0 L- 55 t ti 11 8- 3- 00 MA 17 Av ve 22 20 20 RT 9 ai 31 08 08 la 0 PH bl AR e MA CY #5 91 BU 00 05 06 03 28 5 EA 97 No Ac TA 59 -1 -[address] 98 t ti LB 13 4- 2- 00 SI 36 Av ve -A 36 20 20 DE ai CE 90 08 08 la TA 5 PH bl MO AR e N- MA CA CY FF [...] MA TA CY BL ET #5 91 BU 00 05 06 02 28 5 EA 97 No Ac TA 59 -1 -[address] 98 t ti LB 13 4- 5- 00 SI 36 Av ve -A 36 20 20 DE ai CE 90 08 08 la TA 5 PH bl MO AR e N- MA CA CY FF [...] 08 08 la TA 5 PH bl MO AR e N- MA CA CY FF OF 50 CY -3 NT 25 HI -4 AN 0 A 00 01 05 04 15 30 WA 69 No Ac 09 -0 -2 .0 L- 55 t ti 37 8- 2- 00 MA 17 Av ve 17 20 20 RT 7 ai 75 08 08 la 6 PH bl AR e MA CY #5 91 00 05 05 00 60 30 EA 97 No Ac 04 -1 -[address] 98 t ti 50 4- 2- 00 SI 35 Av ve 63 20 20 DE ai 96 08 08 la 5 PH bl AR e MA CY OF CY NT HI AN A RA 00 01 05 04 60 30 69 No Ac NI 17 -0 -2 .0 L- 55 t ti TI 24 8- 2- 00 MA 18 Av ve DI 35 20 20 RT 0 ai NE 77 08 08 la 0 PH bl 15 AR e 0 MA MG CY TA #5 BL 91 ET LO 00 04 05 01 60 20 WA 44 No Ac RA 37 -0 -0 .0 L- 67 t ti ZE 82 9- 8- 00 MA 44 Av ve PA 45 20 20 RT 8 ai M 70 08 08 la 1 1 PH bl MG AR e MA TA CY BL ET #5 91 OK 00 04 05 00 28 7 WA 69 No Ac OC 78 -2 -0 .0 L- 69 t ti HL 15 9- 8- 00 MA 92 Av ve OR 02 20 20 RT 0 ai PE 10 08 08 la RA 1 PH bl ZI AR e NE MA CY 10 #5 MG 91 TA B RA 00 01 04 03 60 30 WA 69 No Ac NI 17 -0 -2 .0 L- 55 t ti TI 24 8- 4- 00 MA 18 Av ve DI 35 20 20 RT 0 ai NE 77 08 08 la 0 PH bl 15 AR e 0 MA MG CY TA #5 BL 91 ET 00 04 04 00 12 3 WA [...] e MA CY #5 91 LO 00 04 04 00 60 20 [...] 3- 4- 00 MA 91 Av ve OK 59 20 20 RT 7 ai ED 31 08 08 la NI 5 PH bl SO AR e LO MA NE CY 4 #5 MG 91 DO SE PK 00 01 04 02 15 30 WA [...] TA #5 BL 91 ET LO 00 03 04 00 20 20 [...] 00 10 5 EA 97 No Ac MO 00 -0 -[address] 12 t ti FL 40 7- 7- 00 SI 17 Av ve U 80 20 20 DE ai 75 08 08 08 la 5 PH bl MG AR e MA CA CY PS UL OF E CY NT HI AN A 00 01 03 01 30 30 WA 69 No Ac 78 -0 -2 .0 L- 55 t ti 11 8- 6- 00 MA 17 Av ve 22 20 20 RT 9 ai 31 08 08 la 0 PH bl AR e MA CY #5 91 53 02 03 00 40 10 WA [...] #5 BL 91 ET 00 01 03 01 15 30 WA [...] 08 08 la TA 1 PH bl MO AR e N- MA CA CY FF #5 50 91 -3 25 -4 0 BU 00 01 03 01 30 7 WA 69 No Ac TA 14 -0 -2 .0 L- 55 t ti LB 31 8- 5- 00 MA 17 Av ve -A 78 20 20 RT 8 ai CE 70 08 08 la TA 1 PH bl MO AR e N- MA CA CY FF [...] MG CY TA #5 BL 91 ET BU 00 01 03 00 30 7 WA 69 No Ac TA 14 -0 -2 .0 L- 55 t ti LB 31 8- 4- 00 MA 17 Av ve -A 78 20 20 RT 8 ai CE 70 08 08 la TA 1 PH bl MO AR e N- MA CA CY FF #5 50 91 -3 25 -4 0 00 01 03 00 30 30 WA 69 No Ac 78 -0 -2 .0 L- 55 t ti 11 8- 4- 00 MA 17 Av ve 22 20 20 RT 9 ai 31 08 08 la 0 PH bl AR e MA CY #5 91 00 01 03 00 15 30 WA 69 No Ac 09 -0 -2 .0 L- 55 t ti 37 8- 4- 00 MA 17 Av ve 17 20 20 RT 7 ai 75 08 08 la 6 PH bl AR e MA CY #5 91 Immunization Name Date Rout CVX Reac Dose Comm Prov Is Faci e tion ent ider Refu lity Give sed n IIV3 10-2 141 FIEL No FIEL 4-20 D D VACC 13 AMB INE SPLI T VIRU AMB S 0.5 ML DOSA GE IM USE Vital Signs 12-26-2012 00:48 Name Value Interpretat Reference Comment ion Range BP 67 mm[Hg] Diastolic BP Systolic 99 mm[Hg] Heart 84 /min Rate/Pulse O2% 96 % Respiratory 18 /min Rate 12-26-2012 00:15 Name Value Interpretat Reference Comment ion Range BP 70 mm[Hg] Diastolic BP Systolic 106 mm[Hg] Heart 78 /min Rate/Pulse O2% 97 % Respiratory 18 /min Rate Procedures Procedure DOS Code Location Performer Comment BLOOD 56523 [facility] COMPLETE INC INC AUTO&AUTO DIFRNTL WBC COMPREHEN 85400 [facility] SIVE [facility] [address] [facility] M[facility] AMYLASE 7 [place] [address] [facility] LIPASE 7 [facility] INC INC GENERAL 92610 [facility] 7 [facility] LIPID 58836 [facility] PANEL [facility] [place] [address] [facility] THYROXINE 7 [facility] RADIOLOGI 42860 L[facility] C [facility] EXAMINATI INC INC ON KNEE 3 VIEWS SIMPLE 22781 KRISTINA SOTINGEAN REPAIR 7 PHYSICIAN U SCALP/NEC S, PLLC K/AX/GUNNER T/TRUNK 2.5CM/< DUP-SCAN 09943 [facility] XTR VEINS 7 MEDICAL IMAGING [place] ASS L/LIMITED STUDY SMR PRIM 33921 [facility] SRC WET 6 PHYSICIAN PHYSICIAN [facility] S GROUP S GROUP NFCT AGT PROF [facility] 91383 ALLERGY MAS MAR ALLG 6 PARTNERS IMMNTX X OF [place]ER[place] W/PRV CO ALLGIC XTRCS NJXS PROF SVCS 38005 ALLERGY MAS MAR ALLG 6 PARTNERS IMMNTX X OF [place] W/PRV CO ALLGIC XTRCS NJXS NJX 43082 [facility] DX/THER 6 [facility] SBST INC INC EPIDURAL/ SUBARACH LUMBAR/SA CRAL 01799 [facility] TRANSVAGI 6 [facility] NAL INC INC PROF SVCS 37737 ALLERGY MAS MAR ALLG 6 PARTNERS IMMNTX X OF [place] W/PRV CO ALLGIC XTRCS NJXS THERAPEUT 15549 [facility] IC 6 PHYSICIAN PROPHYLAC GROUP TIC/DX INJECTION SUBQ/IM INJECTION J2550 [facility] 6 PHYSICIAN PROMETHAZ GROUP INE HCL UP TO 50 MG URNLS DIP 28917 [facility] 6 PHYSICIAN STICK/TAB GROUP LET RGNT NON-AUTO W/O MICRSCP PROF SVCS 68213 ALLER[facility] MAS MAR ALLG 6 PARTNERS IMMNTX X OF [place] W/PRV CO ALLGIC XTRCS NJXS IADNA 76259 [facility] [place] 6 PHYSICIAN DOMI S GROUP GONORRHOE AE DIRECT PROBE TQ CULTURE 39774 [facility] CHLAMYDIA 6 PHYSICIAN DOMI ANY S GROUP SOURCE URINLS 11089 [facility] DIP 6 PHYSICIAN DOMI STICK/TAB S GROUP LET REAGNT NON-AUTO MICRSCPY BLOOD 26780 [facility] OCCULT 6 PHYSICIAN DOMI PEROXIDAS S GROUP E ACTV QUAL FECES 1-3 SPEC URINE 31855 [facility] 6 PHYSICIAN PHYSICIAN TEST S GROUP S GROUP VISUAL COLOR [facility] G0463 [facility] OUTPATIEN 6 [facility] T CLIN INC INC VISIT ASSESS & MGMT PT PROF [facility] 31836 ALLERGY MAS MAR ALLG 6 PARTNERS IMMNTX X OF [place] W/PRV CO ALLGIC XTRCS NJXS PREPJ& 33380 ALLERGY MAS MAR ALLERGEN 6 PARTNERS IMMUNOTHE OF [place]ERNANDEZ RAPY CO 1/SSDS 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- 03167 [facility] AIDED 6 MEDICAL DETECTION IMAGING ASS SCREENING MAMMOGRAP HY SCREENING G0202 [place] [address] MEDICAL MAMMOGRAP IMAGING HY OYLANDA ASS INCL CAD WHEN PERFORMD SPACR A4627 [facility] AUD BAG/RESRV 6 EQUIPMENT OR W/WO INC MASK W/METRD DOSE INHAL MRI 77889 [facility] SPINAL [facility] CANAL INC INC LUMBAR W/O CONTRAST MATERIAL 3D 12140 [facility] RENDERING 6 [facility] W/INTERP INC INC & POSTPROCE SS SUPERVISI ON DRUG TST G0477 L[facility]E LEELEE PRESUMP;C 6 [facility] PBL BEING INC INC READ DC OPT OBV ONLY THERAPEUT 66006 [facility] IC PX 1/> 6 [facility] AREAS INC INC EACH 15 MIN EXERCISES APPL 06125 [facility] LEELEE MODALITY 6 [facility] 1/> AREAS INC INC ELEC STIMJ UNATTENDE D APPL 96774 LEELEE LEELEE MODALITY 6 [facility] 1/> AREAS INC INC IONTOPHOR ESIS EA 15 MIN APPLICATI 12517 [facility] ON 6 [facility] MODALITY INC INC 1/> AREAS HOT/COLD PACKS PHYSICAL 48697 L[facility] [place] THERAPY 6 [facility] EVALUATIO INC INC N RADEX 57343 [facility] [place] [facility] [place] 6 RADIOLOGY RHO COMPLETE MINIMUM 3 VIEWS RADEX 58469 [facility] [place] 6 [facility] MINIMUM 3 VIEWS RADEX 20354 [facility]ARM 2 6 [facility] NEEDLE 28306 [facility] EMG EA 6 N EXTREMTY NEUROLOGY W/PARASPI NL [facility] COMPLETE NERVE 55915 [facility] 6 N N STUDIES NEUROLOGY 5-6 STUDIES BLOOD 43957 [facility] COUNT 5 [facility] COMPLETE INC INC AUTO&AUTO DIFRNTL WBC CULTURE 11760 [facility] BACTERIAL 5 [facility] INC INC QUANTTATI VE COLONY COUNT URINE URNLS DIP 61752 [facility] STICK/TAB INC INC LET REAGENT AUTO MICROSCOP Y COMPREHEN 23936 [facility] SIVE 5 [facility] [place] [address] [facility] MAGNESIUM 5 [place] [address] [facility] LIPASE 5 [facility] INC INC THERAPEUT 28386 [facility] MCK[facility] IC PX 1/> 5 [facility] AREAS INC INC EACH 15 MIN EXERCISES APPLICATI 05865 [facility] ON 5 [facility] MODALITY INC INC 1/> AREAS HOT/COLD PACKS E-STIM G0283 [facility]EE[facility] LEELEE 1/> AREAS 5 [facility] OTH THAN INC INC WND CARE PART TX PLAN APPLICATI 57722 [facility]OY ON 5 [facility] MODALITY INC INC 1/> AREAS HOT/COLD PACKS E-STIM G0283 LEE[facility]E LEELEE 1/> AREAS 5 [facility] OTH THAN INC INC WND CARE PART TX PLAN THERAPEUT 35777 [facility] MCKOY IC PX 1/> 5 [facility] AREAS INC INC EACH 15 MIN EXERCISES PHYSICAL 50913 [facility] THERAPY 5 [facility] EVALUATIO INC INC N SHOULDER L3650 [facility] 5 TECHNOLOG TECHNOLOG FIG 8 IES INC IES INC ABDUCT RESTRAINE R PREFAB RADEX 66002 [facility] [place] 5 MEDICAL ENEIDA COMPLETE IMAGING MINIMUM 3 ASS VIEWS INJ J0702 A C KILPELA BETAMETHA 5 RUIZ BOUDREAUX SONE PSC ACETATE & PHOSPHATE 3 MG INJECTION J1885 A C KILPELA 5 RUIZ BOUDREAUX KETOROLAC PSC TROMETHAM INE PER 15 MG THERAPEUT 62638 A C KEMIPELA IC 5 RUIZ GARRETT JEZuri PROPHYLAC PSC TIC/DX INJECTION SUBQ/IM CULTURE 98863 [facility] BACTERIAL 5 DIAGNOSTI DIAGNOSTI CS CS QUANTTATI VE COLONY COUNT URINE CULTURE 06181 [facility] BCT 5 DIAGNOSTI DIAGNOSTI ISOL&PRSM CS CS PTV ID ISOLATE EA URINE URINLS 34413 A C KILPELA DIP 5 RUIZ BOUDREAUX STICK/TAB PSC LET REAGNT NON-AUTO MICRSCPY INJECTION J1885 [facility] 5 PHYSICIAN EUG KETOROLAC S GROUP TROMETHAM INE PER 15 MG THERAPEUT 76754 [facility] IC 5 PHYSICIAN EUG PROPHYLAC S GROUP TIC/DX INJECTION SUBQ/IM IAADIADOO 28519 [facility] 4 PHYSICIAN EUG INFLUENZA S GROUP COMPREHEN 52654 [facility] SIVE 4 [facility] METABOLIC INC INC PANEL BLOOD 09215 [facility] COUNT 4 [facility] COMPLETE INC INC AUTO&AUTO DIFRNTL WBC APPLICATI 43466 [facility] ON 4 [facility] MODALITY INC INC 1/> AREAS HOT/COLD PACKS APPL 96965 [facility] MODALITY 4 [facility] 1/> AREAS INC INC ULTRASOUN D EA 15 MIN APPL 11298 [facility] MODALITY 4 [facility] 1/> AREAS INC INC ELEC STIMJ UNATTENDE D THERAPEUT 85165 [facility] IC 4 PHYSICIAN LACEY PROPHYLAC S GROUP TIC/DX INJECTION SUBQ/IM INJECTION J2550 [facility] 4 PHYSICIAN LACEY PROMETHAZ S GROUP INE HCL UP TO 50 MG APPL 56669 [facility] MODALITY 4 [facility] 1/> AREAS INC INC ULTRASOUN D EA 15 MIN APPLICATI 27313 [facility] ON 4 [facility] MODALITY INC INC 1/> AREAS HOT/COLD PACKS APPL 29055 L[facility] MODALITY 4 [facility] 1/> AREAS INC INC ELEC STIMJ UNATTENDE D THERAPEUT 48694 [facility] MCKOY IC PX 1/> 4 [facility] AREAS INC INC EACH 15 MIN EXERCISES THERAPEUT 63770 [facility] MCKOY IC PX 1/> 4 [facility] AREAS INC INC EACH 15 MIN EXERCISES APPL 71910 [facility] MODALITY 4 [facility] 1/> AREAS INC INC ELEC STIMJ UNATTENDE D APPL 75057 [facility] MODALITY 4 [facility] 1/> AREAS INC INC ULTRASOUN D EA 15 MIN APPLICATI 32196 L[facility]OY ON 4 [facility] MODALITY INC INC 1/> AREAS HOT/COLD PACKS APPLICATI 51282 L[facility] MCKOY ON 4 [facility] MODALITY INC INC 1/> AREAS HOT/COLD PACKS APPL 32112 [facility]OY MODALITY 4 [facility] 1/> AREAS INC INC ULTRASOUN D EA 15 MIN APPL 94831 [facility] MODALITY 4 [facility] 1/> AREAS INC INC ELEC STIMJ UNATTENDE D THERAPEUT 45411 LEE[facility] MCKOY IC PX 1/> 4 [facility] AREAS INC INC EACH 15 MIN EXERCISES THERAPEUT 30793 LEE[facility] MCKOY IC PX 1/> 4 [facility] AREAS INC INC EACH 15 MIN EXERCISES APPL 59171 [facility] MODALITY 4 [facility] 1/> AREAS INC INC ELEC STIMJ UNATTENDE D APPL 78948 [facility] MODALITY 4 [facility] 1/> AREAS INC INC ULTRASOUN D EA 15 MIN APPLICATI 17613 [facility] ON 4 [facility] MODALITY INC INC 1/> AREAS HOT/COLD PACKS APPLICATI 75244 [facility] ON 4 [facility] MODALITY INC INC 1/> AREAS HOT/COLD PACKS APPL 78112 [facility] MODALITY 4 [facility] 1/> AREAS INC INC ULTRASOUN D EA 15 MIN APPL 58182 [facility] MODALITY 4 [facility] 1/> AREAS INC INC ELEC STIMJ UNATTENDE D THERAPEUT 07694 [facility]OY IC PX 1/> 4 [facility] AREAS INC INC EACH 15 MIN EXERCISES THERAPEUT 88803 [facility] MCKOY IC PX 1/> 4 [facility] AREAS INC INC EACH 15 MIN EXERCISES APPL 29805 [facility] MODALITY 4 [facility] 1/> AREAS INC INC ELEC STIMJ UNATTENDE D APPL 01528 [facility] MODALITY 4 [facility] 1/> AREAS INC INC ULTRASOUN D EA 15 MIN APPLICATI 93366 [facility] ON 4 [facility] MODALITY INC INC 1/> AREAS HOT/COLD PACKS APPLICATI 68838 [facility]OY ON 4 [facility] MODALITY INC INC 1/> AREAS HOT/COLD PACKS APPL 06641 LEELEE LEELEE MODALITY 4 [facility] 1/> AREAS INC INC ELEC STIMJ UNATTENDE D THERAPEUT 77730 LEELEE MCKOY IC PX 1/> 4 [facility] AREAS INC INC EACH 15 MIN EXERCISES PHYSICAL 04608 [facility] THERAPY 4 [facility] EVALUATIO INC INC N RADEX 76067 [facility] 4 MEDICAL MARCELLE LUMBOSACR IMAGING AL ASS MINIMUM 4 VIEWS THERAPEUT 59540 A Timi MENENDEZ IC 4 RUIZ BOUDREAUX PROPHYLAC PSC TIC/DX INJECTION SUBQ/IM CULTURE 47494 [facility] BACTERIAL 4 DIAGNOSTI DIAGNOSTI CS CS QUANTTATI VE COLONY COUNT URINE URINLS 55204 A Timi MENENDEZ DIP 4 RUIZ GARRETT JEA STICK/TAB PSC LET REAGNT NON-AUTO MICRSCPY INJECTION J1200 [facility] 4 PHYSICIAN LACEY DIPHENHYD S GROUP RAMINE HCL UP TO 50 MG INJECTION J1885 [facility] 4 PHYSICIAN LACEY KETOROLAC S GROUP TROMETHAM INE PER 15 MG IN[facility] J2550 [facility] PROMETHAZ S GROUP INE HCL UP TO 50 MG THERAPEUT 56127 [facility] IC 4 PHYSICIAN LACEY PROPHYLAC S GROUP TIC/DX INJECTION SUBQ/IM BLOOD 71381 RUIZ MELCHOR A COUNT 4 COMPLETE AUTO&AUTO DIFRNTL WBC BLOOD 25310 LEELEE MCKOY OCCULT 4 [facility] PEROXIDAS INC INC E ACTV QUAL FECES 1-3 SPEC SMR PRIM 77099 LEELEE MCKOY SRC 4 [facility] GRAM/GIEM INC INC SA STAIN BCT FUNGI/LIAM L GLUCOSE 35473 FIELD AMB FIELD AMB QUANTITAT 4 GAETANO BLOOD XCPT REAGENT STRIP BLOOD 29369 [facility] COUNT 4 MED CTR, MED CTR, COMPLETE ATTN: ATTN: AUTO&AUTO [place] [address] [facility] THYROID 4 MED CTR, MED CTR, STIMULATI ATTN: ATTN: ABHINAV VELASQUEZ HORMONE TSH COMPREHEN 70157 [facility] SIVE 4 MED CTR, MED CTR, METABOLIC ATTN: ATTN: PANEL DENMarco Antonio DENE INJECTION J2550 [facility] CHELO 4 [facility] PROMETHAZ INE HCL UP TO 50 MG INJECTION J1885 [facility] CHELO 4 [facility] KETOROLAC TROMETHAM INE PER 15 MG INJECTION J1200 [facility] CHELO 4 [facility] DIPHENHYD RAMINE HCL UP TO 50 MG THERAPEUT 76640 CHELO CHELO IC 4 [facility] PROPHYLAC TIC/DX INJECTION SUBQ/IM THERAPEUT 04830 KILPELA KILPELA IC 4 JEA JEA PROPHYLAC TIC/DX INJECTION SUBQ/IM INJECTION J1030 KILPELA KILPELA 4 JEA JEA METHYLPRE DNISOLONE ACETATE 40 MG INJ J0702 [facility] KILPELA BETAMETHA 4 JEA JEA SONE ACETATE & PHOSPHATE 3 MG INJ J0702 [facility] KILPELA BETAMETHA 4 JEA JEA SONE ACETATE & PHOSPHATE 3 MG INJECTION J1030 KILPELA KILPELA 4 JEA JEA METHYLPRE DNISOLONE ACETATE 40 MG THERAPEUT 22897 KILPELA KILPELA IC 4 JEA JEA PROPHYLAC TIC/DX INJECTION SUBQ/IM THERAPEUT 20206 MARTHA THOMAS SEFERINO IC 4 PROPHYLAC TIC/DX INJECTION SUBQ/IM INJECTION J1885 MARTHA THOMAS SEFERINO 4 KETOROLAC TROMETHAM INE PER 15 MG INJECTION J2550 MARTHA THOMAS SEFERINO 4 PROMETHAZ INE HCL UP TO 50 MG NONINVASI 69032 FIELD AMB FIELD AMB VE 4 EAR/PULSE OXIMETRY SINGLE DETER INJECTION J1885 FIELD AMB FIELD AMB 4 KETOROLAC TROMETHAM INE PER 15 MG THERAPEUT 55847 FIELD AMB FIELD AMB IC 4 PROPHYLAC TIC/DX INJECTION SUBQ/IM THERAPEUT 75270 MARTHA THOMAS SEFERINO IC 3 PROPHYLAC TIC/DX INJECTION SUBQ/IM INJECTION J1885 MARTHA THOMAS SEFERINO 3 KETOROLAC TROMETHAM INE PER 15 MG INJECTION J1040 MARTHA THOMAS SEFERINO 3 METHYLPRE DNISOLONE ACETATE 80 MG IIV3 95202 FIELD AMB FIELD AMB VACCINE 3 SPLIT VIRUS 0.5 ML DOSAGE IM USE INJ J0702 FIELD AMB FIELD AMB BETAMETHA 3 SONE ACETATE & PHOSPHATE 3 MG IM ADM 01495 FIELD AMB FIELD AMB PRQ ID 3 SUBQ/IM NJXS 1 VACCINE THERAPEUT 48808 FIELD AMB FIELD AMB IC 3 PROPHYLAC TIC/DX INJECTION SUBQ/[place] [address] NADIRA WADDELL PAT SURG 3 PATHOLOGY GROSS&LACEY ROSCOPIC EXAM CUL 51242 LEELEE MCKOY PRSMPTV 3 [facility] PTHGNC INC INC ORGANISMS SCR DNS CHART SPECIAL 11121 NADIRA WADDELL PAT STAIN 3 GROUP 1 MICROORGA NISMS I&R SPCL STN 72519 NADIRA WADDELL PAT 2 I&R 3 EXCPT MICROORG/ ENZYME/IM CYT ANES 19620 NATALIO LANCE UPPER GI 3 CONRAD CONRAD ENDOSCOPY PROXIMAL TO DUODENUM EGD 99525 LEELEE MCKOY TRANSORAL 3 [facility] BIOPSY INC INC SINGLE/MU LTIPLE INJECTION J1885 FIELD AMB FIELD AMB 3 KETOROLAC TROMETHAM INE PER 15 MG THERAPEUT 04102 FIELD AMB FIELD AMB IC 3 PROPHYLAC TIC/DX INJECTION SUBQ/IM BLOOD 83701 A C MELCHOR A COUNT 3 RUIZ GARRETT COMPLETE PSC AUTO&AUTO DIFRNTL WBC COLLECTIO 34424 A C MELCHOR A N VENOUS 3 RUIZ GARRE[place] B[place] [address] LEELEE MCKOY AMYLASE 3 [facility] INC INC COMPREHEN 22005 LEELEE [facility] METABOLIC INC INC PANEL CUL BACT 63907 [facility] STOOL 3 [facility] AEROBIC INC INC ISOL SALMONELL A&SHIGELL BLOOD 39320 [facility] COUNT 3 [facility] COMPLETE INC INC AUTO&[place] [address] [facility] CLOSTRIDI 3 [facility] [place] [address] [facility] GIARDIA 3 [facility] INC INC SMR PRIM 78167 [facility] SRC 3 [facility] GRAM/GIEM INC INC SA STAIN BCT FUNGI/LIAM L FLUORESCE 47492 [facility] NT [facility] NONNFCT INC INC AGT ANTB TITER EA ANTIBODY OVA&JULIO C 36511 [facility] ITES 3 [facility] DIRECT INC INC SMEARS CONCENTRA TION & [place] [address] LEE[facility]E [facility] GAMMAGLOB 3 [facility] ULIN IGA [place] I[place] [address] [facility] LIPASE 3 [facility] INC INC THERAPEUT 47669 FAMILY FAMILY IC 3 CARE CARE PROPHYLAC ASSOCIATE ASSOCIATE TIC/DX S S INJECTION SUBQ/IM BLOOD 74433 FAMILY FAMILY COUNT 3 CARE CARE COMPLETE ASSOCIATE ASSOCIATE AUTO&AUTO S S DIFRNTL WBC INJECTION J2550 FAMILY FAMILY 3 CARE CARE PROMETHAZ ASSOCIATE ASSOCIATE INE HCL S S UP TO 50 MG ARTHROCEN 70076 PETTEY PETTEY TESIS 3 JAM JAM ASPIR&/IN J MAJOR JT/BURSA W/O US INJ J0702 PETTEY PETTEY BETAMETHA 3 JAM JAM SONE ACETATE & PHOSPHATE 3 MG RADIOLOGI 22896 ABEL Capellan 3 DON DON EXAMINATI ON KNEE 1/2 VIEWS HEMOGLOBI 46425 COMBINED COMBINED N 3 PHYSICIAN PHYSICIAN GLYCOSYLA S LA S LA CLAIRE A1C LIPID 46816 COMBINED COMBINED PANEL 3 PHYSICIAN PHYSICIAN S LA S LA COMPREHEN 70196 COMBINED COMBINED SIVE 3 PHYSICIAN PHYSICIAN METABOLIC S LA S LA PANEL ARTHROCEN 43975 PETTEY PETTEY TESIS 3 JAM JAM ASPIR&/IN J MAJOR JT/BURSA W/O US INJ J0702 PETTEY PETTEY BETAMETHA 3 JAM JAM SONE ACETATE & PHOSPHATE 3 MG THERAPEUT 04369 LEELEE MCKOY IC PX 1/> 3 [facility] AREAS INC INC EACH 15 MIN EXERCISES THERAPEUT 96228 LEELEE MCKOY IC PX 1/> 3 [facility] AREAS INC INC EACH 15 MIN EXERCISES PHYSICAL 59861 [facility] THERAPY 3 [facility] EVALUATIO INC INC N INJ J0702 PETTEY PETTEY BETAMETHA 3 JAM JAM SONE ACETATE & PHOSPHATE 3 MG ARTHROCEN 93503 PETTEY PETTEY TESIS 3 JAM JAM ASPIR&/IN J MAJOR JT/BURSA W/O US RADEX 17442 [facility] SHOULDER 3 [facility] COMPLETE INC INC MINIMUM 2 VIEWS IAADIADOO 66036 ROMAN ROMAN 3 DON DON INFLUENZA INJECTION J2405 L[facility]E MCKOY 2 [facility] ONDANSETR INC INC ON HCL PER 1 MG COMPREHEN 52285 LEELEE MCKOY SIVE 2 [facility] [place] [address] LEELEE MCK[facility] AMYLASE 2 [facility] [place] [address] LEELEE MCKOY INFUSION 2 [facility] THERAPY/P INC INC ROPHYLAXI S /DX 1ST TO 1 HR THERAPEUT 62859 LEELEE MCKOY IC 2 [facility] INJECTION INC INC IV PUSH EACH NEW DRUG URINE 32230 LEELEE MCKOY 2 [facility] TEST INC INC VISUAL COLOR CMPRSN METHS BLOOD 84104 L[facility]E M[facility] COUNT 2 [facility] COMPLETE INC INC AUTO&[place] [address] LEELEE M[facility] LIPASE 2 [facility] INC INC BOTULINUM J0585 [facility] TOXIN 2 DOMI DOMI TYPE A PER UNIT CHEMODENE 44649 [facility] RVATION 2 DOMI DOMI NECK MUSCLE CHEMODNRV 64742 [facility] TJ MUSC 2 DOMI DOMI MUSC INNERVATE D FACIAL NRV UNIL IAADIADOO 71928 ABEL ROMAN 2 DON DON STREPTOCO CCUS GROUP A IAADIADOO 10414 ROMAN ROMAN 2 DON DON STREPTOCO CCUS GROUP A IAADIADOO 92296 ROMAN ROMAN 2 DON DON STREPTOCO CCUS GROUP A URNLS DIP 23040 ROMAN ROMAN 2 DON DON STICK/TAB LET RGNT NON-AUTO W/O MICRSCP URNLS DIP 02127 ROMAN ROMAN 2 DON DON STICK/TAB LET RGNT NON-AUTO W/O MICRSCP URNLS DIP 04609 ROMAN ROMAN 2 DON DON STICK/TAB LET RGNT NON-AUTO W/O MICRSCP URNLS DIP 20272 ROMAN ROMAN 2 DON DON STICK/TAB LET RGNT NON-AUTO W/O MICRSCP URNLS DIP 38218 ROMAN ROMAN 2 DON DON STICK/TAB LET RGNT NON-AUTO W/O MICRSCP URNLS DIP 75881 ROMAN ROMAN 2 DON DON STICK/TAB LET RGNT NON-AUTO W/O MICRSCP URNLS DIP 85354 [facility] 2 [facility] STICK/TAB INC INC LET REAGENT AUTO MICROSCOP Y HEMOGLOBI 79751 COMBINED COMBINED N 2 PHYSICIAN PHYSICIAN CARLOS ENRIQUE S LA Kallie LA CLAIRE A1C CHEMODENE 01473 [facility] RVATION 2 DOMI DOMI NECK MUSCLE CHEMODNRV 78269 [facility] TJ MUSC 2 DOMI DOMI MUSC INNERVATE D FACIAL NRV UNIL CHEMODENE 38552 [facility] RVATION 2 DOMI DOMI ECCRINE GLANDS OTH AREA PER DAY THERAPEUT 70179 LEELEE MCKOY IC 2 [facility] PROPHYLAC INC INC TIC/DX INJECTION SUBQ/[place] [address] LEELEE MCK[facility] LIPASE 2 [facility] INC INC THERAPEUT 63036 LEELEE MCKOY IC 2 [facility] INJECTION INC [place] [address] LEELEE LABONE INFUSION 2 [facility] INC PHARMACY RETAIL SUPPORT SPECIALIST THERAPY/P INC ROPHYLAXI S /DX 1ST TO 1 HR BLOOD 07518 LEELEE MCKOY COUNT 2 [facility] COMPLETE INC INC AUTO&AUTO DIFRNTL WBC COMPREHEN 28824 LEELEE MCKOY SIVE 2 [facility] [address] LEELEE MCKOY AMYLASE 2 [facility] INC INC SCREENING G0202 LEELEE MCKOY 2 [facility] MAMMOGRAP INC INC HY YOLANDA INCL CAD WHEN PERFORMD COMPUTER- 17504 LEELEE MCKOY AIDED 2 [facility] DETECTION INC INC SCREENING MAMMOGRAP HY BLOOD 01797 ROMAN ROMAN OCCULT 2 DON DON PEROXIDAS E ACTV QUAL FECES 1 DETER CYTP 68127 QUEST QUEST SLIDES 2 DIAGNOSTI DIAGNOSTI CERV/VAG CS CS MNL SCRN PHYSICIAN SUPV THERAPEUT 80275 LEELEE MCKOY IC 2 [facility] PROPHYLAC INC INC TIC/DX INJECTION SUBQ/IM URNLS DIP 79045 ROMAN ROMAN 2 DON DON STICK/TAB LET RGNT NON-AUTO W/O MICRSCP FIBRIN 47849 LEELEE M[facility] DGRADJ 2 [facility] PRODUCTS INC INC D-DIMER QUAL/SEMI [place] THERAPEUT 96929 LEELEE MCKOY IC 2 [facility] PROPHYLAC INC INC TIC/DX INJECTION SUBQ/IM THERAPEUT 98956 LEELEE MCKOY IC 2 [facility] PROPHYLAC INC INC TIC/DX INJECTION SUBQ/IM BLOOD 50657 LEELEE MCKOY COUNT 2 [facility] COMPLETE INC INC AUTO&AUTO DIFRNTL WBC BASIC 25207 LEELEE MCKOY METABOLIC 2 [facility] PANEL INC INC CALCIUM TOTAL URNLS DIP 88104 LEE[facility]E MCKOY 2 [facility] STICK/TAB INC INC LET REAGENT AUTO MICROSCOP Y THERAPEUT 88620 LEELEE MCKOY IC 2 [facility] PROPHYLAC INC INC TIC/DX INJECTION SUBQ/IM URNLS DIP 40840 LEELEE MCKOY 1 [facility] STICK/TAB INC INC LET REAGENT AUTO MICROSCOP Y BASIC 54697 LEELEE MCKOY METABOLIC 1 [facility] PANEL INC INC CALCIUM TOTAL BLOOD 88271 LEELEE MCKOY COUNT 1 [facility] COMPLETE INC INC AUTO&[place] [address] LEELEE MCKOY INFUSION 1 [facility] THERAPY/P INC INC ROPHYLAXI S /DX 1ST TO 1 HR OPHTH 29867 SALLY CASILLAS OLAYINKA MEDICAL 1 VISION XM&EVAL COMPRE NEW PT 1/> VST COMPUTERI 53981 SALLY CASILLAS OLAYINKA ZED 1 VISION OPHTHALMI C IMAGING OPTIC NERVE SEDIMENTA 22645 LEELEE M[facility]OY TION RATE 1 [facility] RBC INC INC NON-AUTOM ATED 3D 03588 LEELEE LEELEE RENDERING 1 [facility] W/INTERP INC INC & POSTPROCE SS SUPERVISI ON BLOOD 04134 LEELEE MCKOY COUNT 1 [facility] COMPLETE INC INC AUTO&AUTO DIFRNTL WBC COMPREHEN 30303 LEELEE MCKOY SIVE 1 [facility] [place] [address] LEELEE MCKOY HEAD/BRAI 1 [facility] N W/O INC INC CONTRAST MATERIAL URNLS DIP 33382 LEELEE LEELEE 1 [facility] STICK/TAB INC INC LET REAGENT AUTO MICROSCOP Y URNLS DIP 08986 LEELEEJOSEFINA MCKOY 1 [facility] STICK/TAB INC INC LET REAGENT AUTO MICROSCOP Y COMPREHEN 07737 LEELEE MCKOY SIVE 1 [facility] METABOLIC INC INC PANEL BLOOD 37695 LEELEE MCKOY COUNT 1 [facility] COMPLETE INC INC AUTO&[place] [address] LEELEE MCKOY LIPASE 1 [place] [address] LEELEE MCKOY AMYLASE 1 [facility] INC INC BLOOD 04680 LEELEE MCKOY COUNT 1 [facility] COMPLETE INC INC AUTO&AUTO DIFRNTL WBC COMPREHEN 93774 LEELEE MCKOY SIVE 1 [facility] METABOLIC INC INC PANEL URNLS DIP 93607 LEELEE MCKOY 1 [facility] STICK/TAB INC INC LET REAGENT AUTO MICROSCOP Y APPLICATI 39329 LEELEE MCKOY ON 1 [facility] MODALITY INC INC 1/> AREAS HOT/COLD PACKS APPL 85567 LEELEE MCKOY MODALITY 1 [facility] 1/> AREAS INC INC ELEC STIMJ UNATTENDE D PHYSICAL 96144 LEELEE MCKOY THERAPY 1 [facility] EVALUATIO INC INC N THERAPEUT 06300 LEELEE MCKOY IC PX 1/> 1 [facility] AREAS INC INC EACH 15 MIN EXERCISES RADEX 78022 LEELEE MCKOY SPINE 1 [facility] CERVICAL INC INC 6 OR MORE VIEWS RADEX 57215 [place] IZA[place]H SPINE 1 MEDICAL MARCELLE CERVICAL IMAGING 4 OR 5 ASS VIEWS IAADIADOO 96320 ROMAN ROMAN 0 [place] [address] [place] HEAD/BRAI 0 MEDICAL MARCELLE N W/O IMAGING CONTRAST ASS MATERIAL 3D 25081 LEELEE MCKOY RENDERING 0 [facility] W/INTERP INC INC & POSTPROCE SS SUPERVISI ON OBSERVATI 69386 ROMAN ROMAN ON CARE 0 DON DON DISCHARGE MANAGEMEN T INITIAL 38046 [place] ROJAS STEVE INPATIENT 0 MEDICAL CONSULT SERV NEW/ESTAB FOUNDATIO PT 55 MIN RADEX ABD 21153 [place] FA[place] COMPL 0 MEDICAL JOSIE AQT ABD IMAGING W/S/E/D ASS VIEWS 1 VIEW CH INITIAL 19516 ABEL ROMAN OBSERVATI 0 DON DON ON CARE/DAY 50 MINUTES URINE 33724 L[facility]E MCKOY 0 [facility] TEST INC INC VISUAL COLOR CMPRSN METHS URNLS DIP 16281 LEELEE MCKOY 0 [facility] STICK/TAB INC INC LET REAGENT AUTO MICROSCOP Y RADEX ABD 61504 LEELEE MCKOY COMPL 0 [facility] AQT ABD INC INC W/S/E/D VIEWS 1 VIEW COMPREHEN 90847 LEELEE MCKOY SIVE 0 [facility] [place] [address] LEELEE MCKOY AMYLASE 0 [facility] INC INC BLOOD 22867 LEELEE MCKOY COUNT 0 [facility] COMPLETE INC INC AUTO&[place] [address] LEELEE MCKOY LIPASE 0 [facility] [place] [address] LEELEE MCKOY INFUSION 0 [facility] THERAPY/P INC INC ROPHYLAXI S /DX 1ST TO 1 HR CUL BACT 32106 LEELEE MCKOY XCPT 0 [facility] URINE INC INC BLOOD/STO OL AEROBIC ISOL CUL BACT 48886 LEELEE MCKOY AEROBIC 0 [facility] ADDL INC INC METHS DEFINITIV E EA ISOL SUSCEPTIB 51791 LEELEE MCKOY LTY STDY 0 [facility] ANTIMICRB INC INC IAL MICRO/AGA R DILUTJ INCISION 25517 JOSE MARIA HEADLEY & 0 EMERGENCY III JESSEE DRAINAGE SERVICES ABSCESS COMPLICAT ED/MULTIP LE OTH 8604 L[facility]E MCKOY INCISION 0 [facility] W/DRAINAG INC INC E SKIN&SUBC UTANEOUS TISSUE 3D 99742 SOLANGE C IZAIAH RENDERING 0 IZAIAH MARCELLE W/INTERP & POSTPROCE SS SUPERVISI ON MRI 06410 SOLANGE C IZAIAH SPINAL 0 IZAIAH MARCELLE CANAL LUMBAR W/[place] [address] LEELEEJOSEFINA MCKOY RETROPERI 0 [facility] TONEAL INC INC REAL TIME W/IMAGE COMPLETE SUSCEPTIB 59847 LEELEE MCKOY LTY STDY 0 [facility] ANTIMICRB INC INC IAL MICRO/AGA R DILUTJ URNLS DIP 08166 LEELEE MCKOY 0 [facility] STICK/TAB INC INC LET REAGENT AUTO MICROSCOP Y INCISION 85313 JOSE MARIA HEADLEY & 0 EMERGENCY III, DRAINAGE SERVICES MURRAY GAXIOLA COMPLICAT ASSOCIATE ED/MULTIP S LE CT PELVIS 69013 LEELEE MCKOY W/O 0 [facility] CONTRAST INC INC MATERIAL 3D 24987 GAVIN IZAIAH, RENDERING 0 MEDICAL SOLANGE IMAGING W/INTERP& ASSOCIATE POSTPROC S DIFF WORK STATION CUL BACT 87783 LEELEE MCKOY AEROBIC 0 [facility] ADDL INC INC METHS DEFINITIV E EA ISOL CUL BACT 53505 LEELEE MCKOY XCPT 0 [facility] URINE INC INC BLOOD/STO OL AEROBIC ISOL COMPREHEN 47757 LEELEE MCKOY SIVE 0 [facility] METABOLIC INC INC PANEL BLOOD 72336 LEELEE MCKOY COUNT 0 [facility] COMPLETE INC INC AUTO&[place] [address] LEELEE MCKOY INFUSION 0 [facility] THERAPY/P INC INC ROPHYLAXI S /DX 1ST TO [address] [place] [address] LEELEE MCKOY AMYLASE 0 [place] [address] LEELEE LEELEE ABDOMEN 0 [facility] W/[place] [address] LEELEE MCKOY LIPASE 0 [facility] INC INC OTH 8604 LEELEE LEELEE INCISION 0 [facility] W/DRAINAG INC INC E SKIN&SUBC UTANEOUS TISSUE RADEX 19323 ROMAN, ROMAN, SPINE 0 DON R DON R LUMBOSACR AL MINIM[place] 4 [place] [address] LEELEE MCKOY STREPTOCO 0 [facility] [place] [place] [address] LEELEE MCKOY INFUSION 0 [facility] THERAPY/P INC INC ROPHYLAXI S /DX 1ST TO 1 HR CULTURE 90444 LEELEE MCKOY BACTERIAL 0 [facility] INC INC QUANTTATI VE COLONY COUNT URINE URNLS DIP 18766 LEELEE LEELEE 0 [facility] STICK/TAB INC INC LET REAGENT AUTO MICROSCOP Y URNLS DIP 69440 LEELEE MCKOY 9 [facility] STICK/TAB INC INC LET REAGENT AUTO MICROSCOP Y BLOOD 76374 LEELEE LEELEE COUNT 9 [facility] COMPLETE INC INC AUTO&AUTO DIFRNTL WBC COMPREHEN 29262 LEELEE MCKOY SIVE 9 [facility] METABOLIC INC INC PANEL IAADI 42731 LEELEE LEELEE INFFLUENZ 9 [facility] A A VIRUS INC INC IAADI 30068 LEELEE LEELEE INFLUENZA 9 [facility] B VIRUS INC INC RADEX 44873 [place] FA[place], HAND 9 MEDICAL ZOË P MINIMUM [address] [place] [address] LEELEE MCKOY HEAD/BRAI 9 [facility] N W/O INC INC CONTRAST MATERIAL 3D 78385 [place] IZA[place], TITUS 9 MEDICAL SOLANGE W/INTERP IMAGING & ASSOCIATE POSTPROCE S SS SUPERVISI ON URNLS DIP 71748 LEELEE LEELEE 9 [facility] STICK/TAB INC INC LET REAGENT AUTO MICROSCOP Y URNLS DIP 34787 LEELEEJOSEFINA MONTEMAYORON 9 [facility] STICK/TAB INC INC LET REAGENT AUTO MICROSCOP Y BLOOD 12804 LEELEE MCKOY COUNT 9 [facility] COMPLETE INC INC AUTO&AUTO DIFRNTL WBC COMPREHEN 70480 LEELEE MCKOY SIVE 9 [facility] METABOLIC INC INC PANEL ECG 67390 LEELEE FREGOSOSON, ROUTINE 9 [facility] W/LEAST PROF SERV 12 LDS I&R ONLY RHYTHM 64428 LEELEE MCKOY ECG 1-3 9 [facility] LEADS INC INC TRACING ONLY W/O I&[place] [address] LEELEE MCKOY INFUSION 9 [facility] THERAPY/P INC INC ROPHYLAXI S /DX 1ST TO 1 HR ECG 34232 LEELEE MCKOY ROUTINE 9 [facility] ECG INC INC W/LEAST 12 LDS TRCG ONLY W/O I&R URNLS DIP 44782 LEELEE MCKOY 9 [facility] STICK/TAB INC INC LET REAGENT AUTO MICROSCOP Y CULTURE 22372 LEELEE MCKOY BACTERIAL 9 [facility] INC INC QUANTTATI VE COLONY COUNT URINE URNLS DIP 19466 LEELEE MCKOY 9 [facility] STICK/TAB INC INC LET REAGENT AUTO MICROSCOP Y BLOOD 51177 LEELEE MCKOY COUNT 9 [facility] COMPLETE INC INC AUTO&AUTO DIFRNTL WBC COMPREHEN 39762 LEELEE MCKOY SIVE 9 [facility] [place] [address] LEELEE MCKOY AMYLASE 9 [facility] [place] [address] LEELEE MCKOY LIPASE 9 [place] [address] LEELEE MCKOY INFUSION 9 [facility] THERAPY/P INC INC ROPHYLAXI S /DX 1ST TO 1 HR COMPREHEN 84236 LEELEE MCKOY SIVE 9 [facility] METABOLIC INC INC PANEL BLOOD 06815 LEELEE MCKOY COUNT 9 [facility] COMPLETE INC INC AUTO&AUTO DIFRNTL WBC URNLS DIP 02173 LEELEE MCKOY 9 [facility] STICK/TAB INC INC LET REAGENT AUTO MICROSCOP Y URNLS DIP 69895 LEELEE MCKOY 9 [facility] STICK/TAB INC INC LET REAGENT AUTO MICROSCOP Y BLOOD 77899 LEELEE MCKOY COUNT 9 [facility] COMPLETE INC INC AUTO&AUTO DIFRNTL WBC RADEX ABD 09210 KIRK GARCIA 9 MEDICAL ZOË P AQT ABD IMAGING W/S/E/D ASSOCIATE VIEWS [address] [place] [address] LEELEE MCKOY INFUSION 9 [facility] THERAPY/P INC INC ROPHYLAXI S /DX 1ST TO 1 [place] [address] LEELEE LEELEE AMYLASE 9 [facility] INC INC COMPREHEN 05468 LEELEE MCKOY SIVE 9 [facility] [place] [address] LEELEE MCKOY LIPASE 9 [facility] INC INC URNLS DIP 01988 ABEL ROMAN, 9 DON R DON R STICK/TAB LET RGNT NON-AUTO W/O MICRSCP COMPREHEN 41696 LEELEE MCKOY SIVE 9 [facility] [place] [address] LEELEE MONTEMAYORON AMYLASE 9 [place] [address] [place] IZA[place], ABDOMEN 9 MEDICAL SOLANGE W/O IMAGING CONTRAST ASSOCIATE MATERIAL S CT PELVIS 73845 LEELEE LEELEE W/O 9 [facility] CONTRAST INC INC MATERIAL 3D 18946 LEELEE MCKOY RENDERING 9 [facility] INC INC W/INTERP& POSTPROC DIFF WORK STATION BLOOD 37493 LEELEE MCKOY COUNT 9 [facility] COMPLETE INC INC AUTO&AUTO DIFRNTL WBC URNLS DIP 57765 LEELEE MCKOY 9 [facility] STICK/TAB INC INC [place] [address] LEELEE MCKOY LIPASE 9 [facility] INC INC RADEX 82575 [place] FA[place], ANKLE 8 MEDICAL ZOË P COMPLETE IMAGING MINIMUM 3 ASSOCIATE VIEWS S RADEX 99405 [place] FA[place], FOOT 8 MEDICAL ZOË P COMPLETE IMAGING MINIMUM 3 ASSOCIATE VIEWS S RADEX 78077 LEELEE MCKOY SPINE 8 [facility] LUMBOSACR INC INC AL MINIMUM [address] PELVIS 11710 [place] IZA[place], W/O & 8 MEDICAL SOLANGE W/CONTRAS IMAGING T ASSOCIATE MATERIAL S URNLS DIP 50649 LEELEE MCKOY 8 [facility] STICK/TAB INC INC LET REAGENT AUTO MICROSCOP Y BLOOD 53066 LEELEE MCKOY COUNT 8 [facility] COMPLETE INC INC AUTO&AUTO DIFRNTL WBC BASIC 83666 LEELEE MCKOY METABOLIC 8 [facility] PANEL INC INC CALCIUM TOTAL RADIOLOGI 14491 LEELEE LEELEE C 8 [facility] EXAMINATI INC INC ON PELVIS 1/2 VIEWS 3D 59253 LEELEE LEELEE RENDERING 8 [facility] INC INC W/INTERP& [place] [address] GAVIN IZAIAH, ABDOMEN 8 MEDICAL SOLANGE W/O & IMAGING W/CONTRAS ASSOCIATE T S MATERIAL URNLS DIP 56925 ABEL ROMAN 8 DON R DON R STICK/TAB LET RGNT NON-AUTO W/O MICRSCP IAADI 89427 LEELEE MCKOY INFFLUENZ 8 [facility] A A VIRUS INC INC IAADI 67790 LEELEE MCKOY INFLUENZA 8 [facility] B VIRUS INC INC IAADIADOO 12787 ABEL ROMAN 8 DON R DON R STREPTOCO CCUS GROUP A URNLS DIP 44690 LEELEE MCKOY 8 [facility] STICK/TAB INC [place] [address] LEELEE MCKOY THER 8 [facility] PROPH/DX INC INC 1ST >1 HR COMPREHEN 82546 LEELEE MCKOY SIVE 8 [facility] METABOLIC INC INC PANEL BLOOD 12348 LEELEE MCKOY COUNT 8 [facility] COMPLETE INC INC AUTO&AUTO DIFRNTL WBC IAADIADOO 95159 ABEL ROMAN 8 DON R DON R STREPTOCO CCUS GROUP A Encounters Encounter Start End Date Code Location Performer Type Date OFFICE 10718 [facility] CUEVAS 7 7 PHYSICIAN T VISIT PRACTICE 25 L MINUTES OFFICE 84467 LEELEE CUEVAS 7 7 [facility] T V[facility]IT 5 INC MINUTES [facility] T [facility] OUTPATIEN INC T EMERGENCY 04301 [facility] 7 7 [facility] DEPARTMEN INC T VISIT LOW/MODER SEVERITY EMERGENCY 94130 KRISTINA MATHUR 7 7 PHYSICIAN [facility], [facility] T VISIT HIGH/URGE NT SEVERITY OFFICE 82807 [facility]IEN 7 7 [facility] T VISIT 5 INC MINUTES [facility] - [facility] 7 [facility] OUT[facility]IEN INC T OFFICE 28457 [facility] LUCEROTAURUS OUTPATIEN 7 7 T VISIT 15 MINUTES OFFICE 35721 JAZMINETAURUS [facility] OUTPATIEN 7 7 T VISIT 15 MINUTES OFFICE 57497 [facility] LUCEROTAURUS OUTPATIEN 7 7 T VISIT 25 MINUTES EMERGENCY 79059 KRISTINA BARRERA 7 7 PHYSICIAN [place] T VISIT MODERATE SEVERITY OFFICE 99377 JAZMINETAURUS LUCEROTAURUS YENMILLIEN 7 7 T VISIT 15 MINUTES EMERGENCY 80336 KRISTINA MATHUR 7 7 PHYSICIAN [facility], [facility] T VISIT HIGH/URGE NT SEVERITY OFFICE 94511 [facility] MARTINS OUTPATIEN 6 6 T VISIT 15 MINUTES OFFICE 17544 [facility] MARTINS OUTPATIEN 6 6 SADIQ SADIQ T VISIT 15 MINUTES OFFICE 78617 [facility] MARTINS OUTPATIEN 6 6 SADIQ SADIQ T VISIT 15 MINUTES OFFICE 51936 [facility] MARTINS OUTPATIEN 6 6 SADIQ SADIQ T NEW 30 MINUTES OFFICE 95999 [facility] 6 6 PHYSICIAN DOMI T VISIT S GROUP 15 MINUTES [facility] 6 6 [facility] T [facility] T OFFICE 46872 [facility] NADYA OUTPATI[facility] 6 6 PHYSICIAN T VISIT GROUP 25 MINUTES INITIAL 93523 [facility] PREVENTIV 6 6 PHYSICIAN DOMI E S GROUP MEDICINE NEW PATIENT [id number] [facility] - 6 6 [facility] OUTPATIEN INC T OFFICE 66833 IVONE MARY PAYNE OUTPATIEN 6 6 MD MARY, T VISIT PSC 25 MINUTES OFFICE 22725 [facility] KEVAN OUTPATIEN 6 6 PHYSICIAN LACEY T VISIT S GROUP 15 MINUTES OFFICE 29009 [facility] OUTPATI[facility] 6 6 PHYSICIAN LACE[facility] T VISIT S GROUP 15 MINUTES [facility] 6 [facility] T [facility] T OFFICE 60920 [facility] OUTPATI[facility] 6 6 PHYSICIAN LACEY T VISIT S GROUP 15 MINUTES OFFICE [address] [facility] OUTPATIEN 6 6 PHYSICIAN T VISIT S GROUP 15 MINUTES OFFICE 16878 [facility] OUTPAT[facility] 6 6 PHYSICIAN LACEY T VISIT S GROUP 10 MINUTES [facility] ORTHOPEDI JEFF T VISIT C 15 ASSOCIAT MINUTES [facility] N OUTPATIEN COMMUNTIY T HOSPITA OFFICE [address] [facility] OUTPATIEN 6 6 PHYSICIAN T VISIT S GROUP 15 MINUTES [facility] - 6 6 [facility] OFF[facility] 88861 [facility] 6 6 ORTHOPEDI JEFF T NEW 45 C MINUTES ASSOCIAT OFFICE 56759 [facility] 6 6 PHYSICIAN LACEY T VISIT S GROUP 15 MINUTES OFFICE [address]25 [facility] OUT[facility]IEN 6 6 PHYSICIAN T VISIT S GROUP 10 MINUTES OFFICE 29213 [facility] OUTPAT[facility] 5 5 PHYSICIAN LACEY T VISIT S GROUP 15 MINUTES [facility] - 5 5 [facility] OUTPATIEN INC T EMERGENCY 10530 [facility] 5 5 [facility] DEPARTMEN INC T VISIT LOW/MODER SEVERITY EMERGENCY 94978 KRISTINA KEVAN 5 5 PHYSICIAN LACEY DEPARTMEN S, PLL[facility] T VISIT HIGH/URGE NT SEVERITY OFFICE 05348 [facility] OUTPAT[facility] 5 5 PHYSICIAN LACEY T VISIT S GROUP 10 MINUTES OFFICE 97472 [facility] OUTPAT[facility] 5 5 PHYSICIAN LACEY T VISIT S GROUP 15 MINUTES OFFICE 12067 [facility] PETTEY OUTPATIEN 5 5 PHYSICIAN JAM T VISIT S GROUP 15 MINUTES OFFICE 54865 [facility] OUTPAT[facility] 5 5 PHYSICIAN LACEY T VISIT S GROUP 10 MINUTES [facility] 5 5 [facility] OUT[facility] INC T OFFICE 89560 [facility] OUTPAT[facility] 5 5 PHYSICIAN LACEY T VISIT S GROUP 10 MINUTES EMERGENCY 50302 KRISTINA KEVAN 5 5 PHYSIC[facility] LACE[facility] SE[facility] 5 [facility] OUT[facility] INC T OFFICE 09999 [facility] 5 5 [facility] T VISIT INC 10 MINUTES OFFICE 33565 IVONE PAYNE OUTPATIEN 5 5 MD MARY, T NEW 30 PSC MINUTES OFFICE 18951 [facility] OUTPAT[facility] 5 5 PHYSICIAN LACEY T VISIT S GROUP 10 MINUTES OFFICE 92331 SNEHAL [facility]ERETT ANT OUTPATIEN 5 5 MEDICAL T VISIT SERV 25 FOUNDATIO MINUTES N OFFICE 56686 [facility] OUTPAT[facility] 5 5 PHYSICIAN LACEY T VISIT S GROUP 15 MINUTES OFFICE 86018 [facility] OUT[facility] 5 5 PHYSICIAN LACEY T VISIT S GROUP 15 MINUTES EMERGENCY 77481 KRISTINA KEVAN 5 5 PHYSICIAN LACEY DEPARTMEN S, PLL[facility] T VISIT MODERATE SEVERITY OFFICE 89949 [facility] OUTPAT[facility] 5 5 PHYSICIAN LACEY T VISIT S GROUP 10 MINUTES OFFICE 77193 [facility] OUT[facility] 5 5 PHYSICIAN LACEY T VISIT S GROUP 10 MINUTES OFFICE 36391 A C YAMIL GABY OUTPATIEN 5 5 RUIZ GARRETT T VISIT PSC 15 MINUTES OFFICE 35993 [facility] FRYMAN OUTPATIEN 5 5 PHYSICIAN EUG T VISIT S GROUP 15 MINUTES OFFICE 26601 [facility] 5 5 PHYSICIAN LACEY T VISIT S GROUP 25 MINUTES OFFICE 20688 A C KILPELA OUTPATIEN 5 5 RUIZ GARRETT JEA T VISIT PSC 15 MINUTES OFFICE 81862 A C KILPELA OUTPATIEN 5 5 RUIZ GARRETT JEZuri T VISIT PSC 15 MINUTES OFFICE 48659 [facility] 5 5 PHYSICIAN LACEY T VISIT S GROUP 15 MINUTES OFFICE 03883 [facility] 5 5 [facility]ACE[facility] T VISIT S GROUP 15 MINUTES OFFICE 05496 [facility] 5 5 PHYSIC[facility] LACEY T VISIT S GROUP 10 MINUTES OFFICE 52008 [facility] FRYMAN OUTPATIEN 5 5 PHYSICIAN EUG T VISIT S GROUP 15 MINUTES OFFICE 90056 [facility] OUTPATI[facility] 4 4 PHYSICIAN EUG T VISIT S GROUP 15 MINUTES OFFICE 75602 [facility] OUTPAT[facility] 4 4 PHYSICIAN LACEY T VISIT S GROUP 10 MINUTES EMERGENCY 89480 [facility] T [facility]ISIT LOW/MODER SEVERITY [facility] T EMERGENCY 11400 [facility] 4 4 [facility] EMERGENCY T VISIT PHYS HIGH/URGE NT SEVERITY OFFICE 45335 [facility] OUTPAT[facility] 4 4 PHYSICIAN LACEY T VISIT S GROUP 15 MINUTES OFFICE 85510 [facility] 4 4 PHYSICIAN LACEY T VISIT S GROUP 15 MINUTES [facility] 4 4 [facility] T OFF[facility] 53869 [facility] 4 4 PHYSICIAN LACEY T VISIT S GROUP 10 MINUT[facility] 4 4 [facility] T [facility] 4 4 [facility] T OFFICE 22937 [facility]PAT[facility] 4 4 PHYSICIAN LACEY T VISIT S GROUP 15 MINUTES EMERGENCY 81919 LOBO MATHUR 4 4 [facility] EMERGENCY T VISIT PHYS MODERATE SEVERITY OFFICE 12345 A C KILPELA OUTPATIEN 4 4 RUIZ GARRETT JEZuri T VISIT PSC 15 MINUTES OFFICE 82289 A C KILPELA OUTPATIEN 4 4 RUIZ GARRETT JEA T VISIT PSC 15 MINUTES EMERGENCY 42961 [facility] KEVAN 4 4 [facility] EMERGENCY T VISIT PHYS HIGH/URGE NT SEVERITY OFFICE 03392 A C KILPELA OUTPATIEN 4 4 RUIZ BOUDREAUX T VISIT PSC 15 MINUTES OFFICE 15425 A C FIELD AMB OUTPATIEN 4 4 RUIZ GARRETT T VISIT PSC 15 MINUTES OFFICE 03550 [facility] 4 4 PHYSICIAN LACEY T VISIT S GROUP 15 MINUTES OFFICE 23901 MELCHOR A MELCHOR A OUTPATIEN 4 4 T VISIT 15 MINUTES OFFICE 83292 [facility] KILPELA OUTPATIEN 4 4 JEA JEA T VISIT 15 MINUTES [facility] T OFFICE 97081 FIELD AMB FIELD AMB OUTPATIEN 4 4 T VISIT 15 MINUTES EMERGENCY 99004 KEVAN ALTAMIRANOEY 4 4 LACEY LACEY DEPARTMEN T VISIT MODERATE SEVERITY OFFICE 11371 FIELD AMB FIELD AMB OUTPATIEN 4 4 T VISIT 15 MINUTES OFFICE 92425 [facility] KILPELA OUTPATIEN 4 4 JEA JEA T VISIT 15 MINUTES [facility] [place] [facility] 4 [facility], ATTN: DENE OFFICE 75854 FIELD AMB FIELD AMB OUTPATIEN 4 4 T VISIT 15 MINUTES OFFICE 24848 FIELD AMB FIELD AMB OUTPATIEN 4 4 T VISIT 15 MINUTES OFFICE 02868 FIELD AMB FIELD AMB OUTPATIEN 4 4 T VISIT 15 MINUTES OFFICE 79426 CHELO CHELO OUTPATIEN 4 4 CONRAD CONRAD T VISIT 15 MINUTES OFFICE 57208 FIELD AMB FIELD AMB OUTPATIEN 4 4 T VISIT 15 MINUTES OFFICE 68982 K[facility] KILPELA OUTPATIEN 4 4 JEA JEA T VISIT 15 MINUTES OFFICE 01727 FIELD AMB FIELD AMB OUTPATIEN 4 4 T VISIT 15 MINUTES OFFICE 71672 [facility] KILPELA OUTPATIEN 4 4 JEA JEA T VISIT 15 MINUTES OFFICE 99785 MARTHA THOMAS SEFERINO OUTPATIEN 4 4 T VISIT 15 MINUTES OFFICE 91618 K[facility]PE[facility] KILPELA OUTPATIEN 4 4 JEA JEA T VISIT 15 MINUTES OFFICE 72824 ROJAS STEVE ROJAS STEVE OUTPATIEN 4 4 T VISIT 15 MINUTES OFFICE 33770 FIELD AMB FIELD AMB OUTPATIEN 4 4 T VISIT 15 MINUTES OFFICE 08272 MARTHA THOMAS SEFERINO OUTPATIEN 3 3 T VISIT 15 MINUTES OFFICE 82974 SANTANA CAROURN CONSULTAT 3 3 MEJIA MEJIA ION NEW/ESTAB PATIENT 40 MIN OFFICE 98782 ROJAS STEVE ROJAS STEVE OUTPATIEN 3 3 T VISIT 25 MINUTES OFFICE 35064 FIELD AMB FIELD AMB OUTPATIEN 3 3 T VISIT 15 MINUTES [facility] T OFFICE 50616 FIELD AMB FIELD AMB OUTPATIEN 3 3 T VISIT 15 MINUTES OFFICE 20958 K[facility]PE[facility] KILPELA OUTPATIEN 3 3 JEA JEA T VISIT 15 MINUTES OFFICE 35007 WALDEMAR WALDEMAR OUTPATIEN 3 3 DOMI DOMI T VISIT 25 MINUTES OFFICE 88037 FIELD AMB FIELD AMB OUTPATIEN 3 3 T VISIT 15 MINUTES OFFICE 58272 A Timi MENENDEZ OUTPATIEN 3 3 RUIZ BOUDREAUX T VISIT PSC 15 MINUTES OFFICE 35688 Zuri Keating OUTPATIEN 3 3 RUIZ GARRETT T VISIT PSC 15 MINUTES [facility] T OFFICE 80113 ROJAS STEVE ROJAS STEVE CONSULTAT 3 3 ION NEW/ESTAB PATIENT 60 MIN OFFICE 40884 ABEL ROMAN OUTPATIEN 3 3 DON DON T VISIT 15 MINUTES OFFICE 80395 ABEL ROMAN OUTPATIEN 3 3 DON DON T VISIT 15 MINUTES OFFICE 24161 FAMILY OUTPATIEN 3 3 CARE T VISIT ASSOCIATE 15 S MINUTES OFFICE 14007 ROMAN ROMAN OUTPATIEN 3 3 DON DON T VISIT 15 MINUTES OFFICE 52496 ROMAN ROMAN OUTPATIEN 3 3 DON DON T VISIT 15 MINUTES OFFICE 56442 ROMAN ROMAN OUTPATIEN 3 3 DON DON T VISIT 25 MINUTES OFFICE 90453 ROMAN ROMAN OUTPATIEN 3 3 DON DON T VISIT 15 MINUTES Emergency THERESA Headley (ER) 3 00:20 3 00:48 [facility] BernardChang EMERGENCY 65546 [place] 3 3 [facility] T VISIT LOW/MODER SEVERITY [facility] 3 3 [facility] INC T EMERGENCY 86941 [facility] 3 [facility] SE[facility] OFFICE 52038 PETTEY PETTEY OUTPATIEN 3 3 JAM JAM T VISIT 15 MINUTES [facility] 3 3 [facility] T OFFICE 27442 PETTEY PETTEY OUTPATIEN 3 3 JAM JAM T NEW 30 MINUTES [facility] 3 [facility] T OFFICE 96603 ROMAN ROMAN OUTPATIEN 3 3 DON DON T VISIT 15 MINUTES OFFICE 54846 ROMAN ROMAN OUTPATIEN 3 3 DON DON T VISIT 15 MINUTES OFFICE 58498 ROMAN ROMAN OUTPATIEN 3 3 DON DON T VISIT 15 MINUTES OFFICE 22222 ORMAN ROMAN OUTPATIEN 3 3 DON DON T VISIT 15 MINUTES EMERGENCY 67825 JOSE MARIA DE LA ROSA 2 2 [facility] HIGH/URGE NT SEVERITY [facility] 2 2 [facility] INC T EMERGENCY 90395 [place] 2 2 [facility] DEPARTMEN INC T VISIT MODERATE SEVERITY OFFICE 28047 ROMAN ROMAN OUTPATIEN 2 2 DON DON T VISIT 15 MINUTES OFFICE 91877 ROMAN ROMAN OUTPATIEN 2 2 DON DON T VISIT 15 MINUTES OFFICE 46143 ROMAN ROMAN OUTPATIEN 2 2 DON DON T VISIT 15 MINUTES OFFICE 28501 ROMAN ROMAN OUTPATIEN 2 2 DON DON T VISIT 15 MINUTES OFFICE 42173 ROMAN ROMAN OUTPATIEN 2 2 DON DON T VISIT 15 MINUTES [facility] 2 2 [facility] T EMERGENCY 78518 [facility] 2 2 [facility] DEPARTMEN INC T VISIT LOW/MODER SEVERITY EMERGENCY 24776 JOSE MARIA LINDQUIST 2 2 EMERGENCY DEPARTMEN SERVICES T VISIT MODERATE SEVERITY OFFICE 11645 ROMAN ROMAN OUTPATIEN 2 2 DON DON T VISIT 15 MINUTES EMERGENCY 60981 JOSE MARIA DE LA ROSA 2 2 EMERGENCY [facility] SERVICES T VISIT HIGH/URGE NT SEVERITY EMERGENCY 72091 KEVAN MATHUR 2 2 [facility] DEPARTMEN T VISIT MODERATE SEVERITY [facility] 2 2 [facility] INC T EMERGENCY 92813 [place] 2 2 [facility] DEPARTMEN INC T VISIT LOW/MODER SEVERITY OFFICE 34916 ROMAN ROMAN OUTPATIEN 2 2 DON DON T VISIT 15 MINUTES OFFICE 09160 ROMAN ROMAN OUTPATIEN 2 2 DON DON T VISIT 15 MINUTES EMERGENCY 59595 PREETI HEADLEY 2 2 III JESSEE III [facility] T VISIT HIGH/URGE NT SEVERITY EMERGENCY 61047 [place] 2 2 [facility] T VISIT LOW/MODER SEVERITY [facility] - 2 2 [facility]70[facility] ROMAN ROMAN OUTPATIEN 2 2 DON DON T VISIT 15 MINUTES OFFICE 95134 ROMAN ROMAN OUTPATIEN 2 2 DON DON T VISIT 15 MINUTES OFFICE 56923 ROMAN ROMAN OUTPATIEN 2 2 DON DON T VISIT 15 MINUTES EMERGENCY 88104 [place] 2 2 [facility] T VISIT MODERATE SEVERITY [facility] - 2 2 [facility] T EMERGENCY 08110 PREETI HEADLEY 2 2 III JESSEE III [facility] T VISIT HIGH/URGE NT SEVERITY OFFICE 48125 ROMAN ROMAN OUTPATIEN 2 2 DON DON T VISIT 15 MINUTES [facility] - 2 2 [facility] T EMERGENCY 69133 JOSE MARIA MATHUR 2 2 EMERGENCY [facility] SERVICES T VISIT HIGH/URGE NT SEVERITY OFFICE 34742 WALDEMAR WALDEMAR CONSULTAT 2 2 DOMI DOMI ION NEW/ESTAB PATIENT 60 MIN [facility] - 2 2 [facility] T OFFICE 75633 ROMAN ROMAN OUTPATIEN 2 2 DON DON T VISIT 25 MINUTES OFFICE 10073 ROMAN ROMAN OUTPATIEN 2 2 DON DON T VISIT 15 MINUTES [facility] 2 [facility] T EMERGENCY 52575 [facility] 2 2 [facility] DEPARTMEN INC T VISIT MODERATE SEVERITY EMERGENCY 09827 JOSE MARIA MATHUR 2 2 EMERGENCY [facility] DEPARTMEN SERVICES T VISIT HIGH/URGE NT SEVERITY EMERGENCY 22106 [facility] 2 2 DEPARTMEN T VISIT MODERATE SEVERITY EMERGENCY 01039 [facility] 2 2 [facility] T VISIT MODERATE SEVERITY [facility] 2 2 [facility] T OFFICE 79566 ROMAN ROMAN OUTPATIEN 2 2 DON DON T VISIT 15 MINUTES [facility] 2 2 [facility] INC T EMERGENCY 84472 JOSE MARIA MATHUR 2 2 [facility] HIGH/URGE NT SEVERITY EMERGENCY 06734 [facility] 2 2 [facility] VISIT MODERATE SEVERITY EMERGENCY 78304 [facility] 2 2 [facility] T VISIT MODERATE SEVERITY [facility] 2 2 [facility] INC T EMERGENCY 88081 PREETI HEADLEY 2 2 III JESSEE III [facility] DEPARTMEN T VISIT HIGH/URGE NT SEVERITY OFFICE 38978 ROMAN ROMAN OUTPATIEN 2 2 DON DON T VISIT 15 MINUTES OFFICE 39282 ROMAN ROMAN OUTPATIEN 2 2 DON DON T VISIT 25 MINUTES EMERGENCY 04112 JOSE MARIA MATHUR 2 2 EMERGENCY [facility] DEPARTMEN SERVICES T VISIT HIGH/URGE NT SEVERITY EMERGENCY 02355 [facility] 2 2 [facility] T VISIT MODERATE SEVERITY [facility] 2 [facility] T OFFICE 95244 ROMAN ROMAN OUTPATIEN 2 2 DON DON T VISIT 15 MINUTES EMERGENCY 56047 PREETI HEADLEY 2 2 III JESSEE III [facility] HIGH/URGE NT SEVERITY [facility] 2 2 [facility] INC T EMERGENCY 95160 [place] 2 2 [facility] DEPARTMEN INC T VISIT MODERATE SEVERITY OFFICE 77500 ROMAN ROMAN OUTPATIEN 2 2 DON DON T VISIT 15 MINUTES OFFICE 20528 ROMAN ROMAN OUTPATIEN 2 2 DON DON T VISIT 15 MINUTES OFFICE 49362 ROMAN ROMAN OUTPATIEN 2 2 DON DON T VISIT 15 MINUTES OFFICE 58695 ROMAN ROMAN OUTPATIEN 2 2 DON DON T VISIT 15 MINUTES OFFICE 82163 ROMAN ROMAN OUTPATIEN 2 2 DON DON T VISIT 15 MINUTES EMERGENCY 62119 JOSE MARIA MATHUR 2 2 [facility]Y [facility] VISIT HIGH/URGE NT SEVERITY OFFICE 77396 ROMAN ROMAN OUTPATIEN 2 2 DON DON T VISIT 15 MINUTES OFFICE 64204 ROMAN ROMAN OUTPATIEN 1 1 DON DON T VISIT 15 MINUTES [facility] 1 1 [facility] T EMERGENCY 82767 [facility] 1 1 [facility] DEPARTMEN INC T VISIT LOW/MODER SEVERITY EMERGENCY 12894 KEVAN MATHUR 1 1 [facility] T VISIT HIGH/URGE NT SEVERITY OFFICE 81892 ROMAN ROMAN OUTPATIEN 1 1 DON DON T VISIT 15 MINUTES OFFICE 61300 ROMAN ROMAN OUTPATIEN 1 1 DON DON T VISIT 15 MINUTES OFFICE 12560 ROMAN ROMAN OUTPATIEN 1 1 DON DON T VISIT 15 MINUTES EMERGENCY 69182 JOSE MARIA HEADLEY 1 1 EMERGENCY III [facility] DEPARTMEN SERVICES T VISIT HIGH/URGE NT SEVERITY [facility] 1 [facility] 1 [facility] INC T EMERGENCY 37087 [facility] 1 1 [facility] DEPARTMEN INC T VISIT MODERATE SEVERITY EMERGENCY 50876 JOSE MARIA MORTON 1 1 EMERGENCY DEPARTMEN SERVICES T VISIT HIGH/URGE NT SEVERITY OFFICE 16180 ROMAN ROMAN OUTPATIEN 1 1 DON DON T VISIT 15 MINUTES EMERGENCY 96146 [facility] 1 1 [facility] DE[facility] INC T VISIT MODERATE SEVERITY [facility] 1 [facility] OUTPAT[facility]EN INC T EMERGENCY 00280 JOSE MARIA MATHUR DEPT 1 1 EMERGENCY LACEY VISIT SERVICES HIGH SEVERITY& THREAT FUNJ OFFICE 90526 ROMAN ROMAN OUTPATIEN 1 1 DON DON T VISIT 15 MINUTES OFFICE 32853 ROMAN ROMAN OUTPATIEN 1 1 DON DON T VISIT 25 MINUTES OFFICE 35063 ROMAN ROMAN OUTPATIEN 1 1 DON DON T VISIT 15 MINUTES EMERGENCY 50799 [facility] 1 1 [facility] INC T VISIT LOW/MODER SEVERITY [facility] 1 [facility] OUTPAT[facility] INC T OFFICE 94826 ROMAN ROMAN OUTPATIEN 1 1 DON DON T VISIT 15 MINUTES [facility] 1 [facility] OUT[facility] INC T EMERGENCY 54173 JOSE MARIA HEADLEY DEPT 1 1 EMERGENCY III [facility] VISIT SERVICES HIGH SEVERITY& THREAT FUNCJ EMERGENCY 12200 [facility] 1 1 [facility] DEPART[facility] INC T VISIT LOW/MODER SEVERITY OFFICE 57835 ROMAN ROMAN OUTPATIEN 1 1 DON DON T VISIT 15 MINUTES EMERGENCY 93718 JOSE MARIA MATHUR 1 1 EMERGENCY [facility] DEPARTMEN SERVICES T VISIT HIGH/URGE NT SEVERITY EMERGENCY 25546 [facility] 1 1 [facility] DE[facility] INC T VISIT LOW/MODER SEVERITY [facility] 1 1 [facility] OUTPATIEN INC T EMERGENCY 08494 JOSE MARIA MATHUR 1 1 EMERGENCY [facility] DEPARTMEN SERVICES T VISIT HIGH/URGE NT SEVERITY [facility] 1 1 [facility]PATI[facility] INC T OFFICE 21624 ROMAN ROMAN OUTPATIEN 1 1 DON DON T VISIT 15 MINUTES [facility] 1 [facility] OUTPAT[facility] INC T OFFICE 84838 ROMAN ROMAN OUTPATIEN 1 1 DON DON T VISIT 15 MINUTES [facility] 1 1 [facility] INC T OFFICE 46226 ROMAN ROMAN OUTPATIEN 1 1 DON DON T VISIT 15 MINUTES OFFICE 72447 ROMAN ROMAN OUTPATIEN 0 0 DON DON T VISIT 15 MINUTES EMERGENCY 39917 [facility] 0 0 [facility] DEPARTMEN INC T VISIT LOW/MODER SEVERITY EMERGENCY 45736 JOSE MARIA HEADLEY 0 0 EMERGENCY III [facility] DEPARTMEN SERVICES T VISIT MODERATE SEVERITY [facility] 0 0 [facility] OUTPATIEN INC T EMERGENCY 36822 [facility] 0 0 [facility] DEPARTMEN INC T VISIT MODERATE SEVERITY [facility] 0 0 [facility] OUTPATIEN INC T EMERGENCY 84342 JOSE MARIA LINDSEY DEPT 0 0 EMERGENCY SHAN VISIT SERVICES HIGH SEVERITY& THREAT FUNCJ OFFICE 77912 ABEL MIHENS OUTPATIEN 0 0 DON DON T VISIT 15 MINUTES EMERGENCY 15012 JOSE MARIA LINDSEY DEPT 0 0 EMERGENCY SHAN VISIT SERVICES HIGH SEVERITY& THREAT FUNCJ EMERGENCY 77413 [facility] 0 0 [facility] DE[facility] INC T VISIT HIGH/URGE NT SEVERITY [facility] 0 0 [facility] OUTPATI[facility] INC T EMERGENCY 19089 JOSE MARIA LINDSEY DEPT 0 0 EMERGENCY SHAN VISIT SERVICES HIGH SEVERITY& THREAT FUNJ OFFICE 38528 DIOP DIOP OUTPATIEN 0 0 BAO BAO T VISIT 25 MINUTES [facility] 0 [facility] INC T EMERGENCY 84291 JOSE MARIA CHAPMAN 0 0 EMERGENCY JAM DEPARTMEN SERVICES T VISIT MODERATE SEVERITY EMERGENCY 34510 [facility] 0 0 [facility] DEPARTMEN INC T VISIT LIMITED/M INOR PROB OFFICE 69008 ROMAN ROMAN OUTPATIEN 0 0 DON DON T VISIT 15 MINUTES OFFICE 46060 ROMAN ROMAN OUTPATIEN 0 0 DON DON T VISIT 15 MINUTES [facility] 0 [facility] OUTPATIEN INC T EMERGENCY 28700 [facility] 0 0 [facility] DEPARTMEN INC T VISIT LIMITED/M INOR PROB EMERGENCY 08016 [facility] 0 0 [facility] DEPARTMEN INC T VISIT LIMITED/M INOR PROB EMERGENCY 33892 JOSE MARIA MORTON 0 0 EMERGENCY DEPARTMEN SERVICES T VISIT HIGH/URGE NT SEVERITY [facility] 0 [facility] T [facility] 0 0 [facility] INC T EMERGENCY 76732 JOSE MARIA HEDALEY 0 0 EMERGENCY III [facility] SERVICES T VISIT HIGH/URGE NT SEVERITY EMERGENCY 98730 [facility] 0 0 [facility] DEPARTMEN INC T VISIT LIMITED/M INOR PROB EMERGENCY 38635 [place] 0 0 [facility] DE[facility] INC T VISIT LOW/MODER SEVERITY EMERGENCY 99376 JOSE MARIA HEADLEY 0 0 EMERGENCY III [facility] SERVICES T VISIT HIGH/URGE NT SEVERITY [facility] 0 0 [facility] T EMERGENCY 04625 JOSE MARIA MATHUR 0 0 EMERGENCY [facility] SERVICES T VISIT HIGH/URGE NT SEVERITY [facility] - 0 0 [facility] INC T EMERGENCY 64941 [facility] 0 0 [facility] VISIT LOW/MODER SEVERITY OFFICE 08771 [place] Z[facility] PHI CONSULTAT 0 0 MEDICAL ION SERV NEW/ESTAB FOUNDATIO PATIENT 40 MIN [facility] 0 0 [facility] OUTPATIEN [facility] T EMERGENCY 09844 JOSE MARIA MATHUR 0 0 [facility] VISIT HIGH/URGE NT SEVERITY EMERGENCY 76325 [place] 0 0 [facility] DEPARTMEN INC T VISIT LIMITED/M INOR PROB EMERGENCY 15999 [facility] 0 0 [facility] DEPARTMEN INC T VISIT LIMITED/M INOR PROB EMERGENCY 36244 JOSE MARIA MATHUR, 0 0 EMERGENCY [facility] SERVICES T VISIT HIGH/URGE ASSOCIATE NT S SEVERITY [facility] 0 0 [facility] OUT[facility] INC T OFFICE 67544 FIDELINA ROMANS, OUTPATIEN 0 0 DON R DON R T VISIT 15 MINUTES [facility] T EMERGENCY 59432 [facility] 0 0 [facility] DEPART[facility] INC T VISIT HIGH/URGE NT SEVERITY OFFICE 08198 ABEL ROMAN, OUTPATIEN 0 0 DON R DON R T VISIT 25 MINUTES [facility] 0 [facility] T EMERGENCY 99337 JOSE MARIA MATHUR, 0 0 EMERGENCY [facility] SERVICES T VISIT HIGH/URGE ASSOCIATE NT S SEVERITY EMERGENCY 00857 [facility] 0 0 [facility] DEPARTMEN INC T VISIT LIMITED/M INOR PROB EMERGENCY 42750 [facility] 0 0 [facility] DEPART[facility] INC T VISIT LOW/MODER SEVERITY EMERGENCY 63765 JOSE MARIA MATHUR, 0 0 EMERGENCY [facility] SERVICES T VISIT MODERATE ASSOCIATE SEVERITY S [facility] 0 [facility] INC T OFFICE 78563 ROMANABEL POWELL, OUTMILLIEN 0 0 DON R DON R T VISIT 15 MINUTES [facility] 0 [facility] T EMERGENCY 62608 [facility] 0 0 [facility] DEPART[facility] INC T VISIT MODERATE SEVERITY EMERGENCY 43288 JOSE MARIA IRELAND, 0 0 EMERGENCY [facility] SERVICES M T VISIT HIGH/URGE ASSOCIATE NT S SEVERITY [facility] 0 [facility] INC T EMERGENCY 22205 [facility] 0 0 [facility] DE[facility] INC T VISIT MODERATE SEVERITY EMERGENCY 89944 JOSE MARIA MATHUR, 0 0 EMERGENCY [facility] SERVICES T VISIT HIGH/URGE ASSOCIATE NT S SEVERITY [facility] 0 0 [facility] T EMERGENCY 23156 JOSE MARIA MATHUR, 0 0 EMERGENCY [facility] SERVICES T VISIT HIGH/URGE ASSOCIATE NT S SEVERITY OFFICE 33191 ABEL ROMAN OUTPATIEN 9 9 DON R DON R T VISIT 15 MINUTES EMERGENCY 11698 [facility] 9 9 [facility] DE[facility] INC T VISIT LIMITED/M INOR PROB [facility] - 9 9 [facility] T [facility]OSP[facility] 9 9 [facility] T EMERGENCY 28946 JOSE MARIA MATHUR, 9 9 EMERGENCY [facility] SERVICES T VISIT HIGH/URGE ASSOCIATE NT S SEVERITY EMERGENCY 67637 [place] 9 9 [facility]IT MODERATE SEVERITY [facility] - 9 9 [facility] T EMERGENCY 88572 JOSE MARIA MATHUR, 9 9 EMERGENCY [facility] SERVICES T VISIT HIGH/URGE ASSOCIATE NT S SEVERITY EMERGENCY 91689 [place] 9 9 [facility] INC T V[facility]IT LIMITED/M INOR PROB [facility] [place] - 9 9 [facility] T EMERGENCY 99971 JOSE MARIA MATHUR, 9 9 EMERGENCY [facility] SERVICES T VISIT HIGH/URGE ASSOCIATE NT S SEVERITY EMERGENCY 95928 [facility] 9 9 [facility] DEPART[facility] INC T VISIT LIMITED/M INOR PROB OFFICE [id number] ABEL ROMAN OUTPATIEN 9 9 DON R DON R T VISIT 15 MINUTES EMERGENCY 97905 JOSE MARIA MATHUR, 9 9 EMERGENCY [facility] SERVICES T VISIT MODERATE ASSOCIATE SEVERITY S [facility] - 9 9 [facility] OUTPATIEN [facility] T EMERGENCY 32283 [facility] 9 9 [facility] DEPARTMEN INC T VISIT LOW/MODER SEVERITY EMERGENCY 15987 JOSE MARIA MATHUR, 9 9 EMERGENCY [facility] SERVICES T VISIT HIGH/URGE ASSOCIATE NT S SEVERITY [facility] - 9 9 [facility] T EMERGENCY 31697 [place] 9 9 [facility] LOW/MODER SEVERITY EMERGENCY 06271 JOSE MARIA MATHUR, 9 9 EMERGENCY [facility] SERVICES T VISIT HIGH/URGE ASSOCIATE NT S SEVERITY EMERGENCY 53980 [place] 9 9 [facility]M INOR PROB [facility] [place] - 9 9 [facility] T HOSPITAL [facility] - 9 9 [facility] OUTPATIEN INC T OFFICE [id number] ABEL ROMAN OUTPATIEN 9 9 DON R DON R T VISIT 15 MINUTES OFFICE [id number] CHIKIS DIOP, WAGNER 9 9 DESI WEEKS LAURA NEW/ESTAB PATIENT 80 MIN OFFICE [id number] ABEL ROMAN OUTPATIEN 9 9 DON R DON R T VISIT 15 MINUTES EMERGENCY 53639 [facility] 9 9 [facility] DEPART[facility] INC T VISIT LOW/MODER SEVERITY [facility] - 9 9 [facility] OUT[facility] INC T EMERGENCY 56076 JOSE MARIA CASTANEDA, 9 9 EMERGENCY [facility] SERVICES T VISIT HIGH/URGE ASSOCIATE NT S SEVERITY EMERGENCY 23855 [facility] 9 9 [facility] V[facility] LIMITED/M INOR PROB EMERGENCY 82892 JOSE MARIA CASTANEDA, DEPT 9 9 EMERGENCY [facility] VISIT SERVICES HIGH SEVERITY& ASSOCIATE THREAT S [facility] - 9 9 [facility] OUT[facility] INC T EMERGENCY 40963 [place] 9 9 [facility] DEPARTMEN INC T VISIT LOW/MODER SEVERITY EMERGENCY 30513 JOSE MARIA MATHUR, 9 9 EMERGENCY [facility] DEPARTMEN SERVICES T VISIT HIGH/URGE ASSOCIATE NT S SEVERITY [facility] - 9 9 [facility] OUT[facility] INC T EMERGENCY 50093 [place] 9 9 [facility] DEPARTMEN INC T VISIT LOW/MODER SEVERITY EMERGENCY 81171 [facility] 9 9 [facility] DEPARTMEN INC T VISIT LIMITED/M INOR PROB [facility] [place] - 9 9 [facility] OUT[facility] INC T EMERGENCY 20824 JOSE MARIA MATHUR, 9 9 [facility]ERGENCY [facility] DEPARTMEN SERVICES T VISIT HIGH/URGE ASSOCIATE NT S SEVERITY [facility] - 9 9 [facility] INC T EMERGENCY 54504 [place] 9 9 [facility] DEPARTMEN INC T VISIT LIMITED/M INOR PROB EMERGENCY 57793 JOSE MARIA MATHUR, 9 9 [facility] HIGH/URGE ASSOCIATE NT S SEVERITY [facility] - 9 9 [facility] INC T EMERGENCY 40655 [place] 9 9 [facility] DEPARTMEN INC T VISIT LIMITED/M INOR PROB EMERGENCY 38870 JOSE MARIA MATHUR, 9 9 [facility]IT MODERATE ASSOCIATE SEVERITY S [facility] - 9 9 [facility] OUT[facility] INC T EMERGENCY 83979 JOSE MARIA BOOTH, DEPT 9 9 EMERGENCY [facility] VISIT SERVICES HIGH SEVERITY& ASSOCIATE THREAT S [facility] EMERGENCY 33929 [place] 9 9 [facility] DEPARTMEN INC T VISIT LIMITED/M INOR PROB [facility] [place] - 9 9 [facility] INC T EMERGENCY 31874 JOSE MARIA MATHUR, 9 9 EMERGENCY [facility] SERVICES T VISIT MODERATE ASSOCIATE SEVERITY S EMERGENCY 91747 [place] 9 9 [facility] DEPARTMEN INC T VISIT LOW/MODER SEVERITY EMERGENCY 33509 [facility] 9 9 [facility] DEPART[facility] INC T VISIT LIMITED/M INOR PROB [facility]OS[facility] [place] - 9 9 [facility] T EMERGENCY [id number] JOSE MARIA MATHUR, 9 9 EMERGENCY [facility] T VISIT MODERATE ASSOCIATE SEVERITY S EMERGENCY 04176 JOSE MARIA MATHUR, 9 9 EMERGENCY [facility] T VISIT MODERATE ASSOCIATE SEVERITY S EMERGENCY 04425 [place] 9 9 [facility] T VISIT LOW/MODER SEVERITY [facility] [facility] 9 9 [facility] - 9 9 [facility] T EMERGENCY 72899 JOSE MARIA MATHUR, 9 9 EMERGENCY [facility] T VISIT HIGH/URGE ASSOCIATE NT S SEVERITY EMERGENCY 24995 [place] 9 9 [facility] T VISIT LOW/MODER SEVERITY EMERGENCY 03294 JOSE MARIA MATHUR, 9 9 EMERGENCY [facility] T VISIT HIGH/URGE ASSOCIATE NT S SEVERITY EMERGENCY 84290 [place] 9 9 [facility] T VISIT MODERATE SEVERITY [facility] 9 9 [facility] - 9 9 [facility] T EMERGENCY 61800 JOSE MARIA MATHUR, 9 9 EMERGENCY [facility] T VISIT HIGH/URGE ASSOCIATE NT S SEVERITY EMERGENCY 18537 [place] 9 9 [facility] T VISIT LIMITED/M INOR PROB EMERGENCY 78271 JOSE MARIA COLEMAN, 9 9 EMERGENCY [facility] SERVICES T VISIT MODERATE ASSOCIATE SEVERITY S EMERGENCY 24351 [place] 9 9 [facility] T VISIT LIMITED/M INOR PROB [facility] [place] - 9 9 [facility] T EMERGENCY 41599 [place] 9 9 [facility] T VISIT LOW/MODER SEVERITY [facility] - 9 9 [facility] T EMERGENCY 65826 JOSE MARIA MATHUR, 9 9 EMERGENCY [facility] T VISIT MODERATE ASSOCIATE SEVERITY S EMERGENCY 68871 JOSE MARIA MATHUR, 9 9 EMERGENCY [facility] T VISIT MODERATE ASSOCIATE SEVERITY S EMERGENCY 42600 [place] 9 9 [facility] INC T VISIT LIMITED[facility]M INOR PROB [facility] [place] - 9 9 [facility] T [facility] [place] - 9 9 [facility] T EMERGENCY 20635 [place] 9 9 [facility]/M INOR PROB EMERGENCY 57784 JOSE MARIA MATHUR, 9 9 EMERGENCY [facility] T VISIT HIGH/URGE ASSOCIATE NT S SEVERITY EMERGENCY 01870 [place] 9 9 [facility] INC T VISIT MODERATE SEVERITY EMERGENCY 51250 JOSE MARIA MATHUR, 9 9 EMERGENCY [facility] T VISIT HIGH/URGE ASSOCIATE NT S SEVERITY [facility] - 9 9 [facility] T EMERGENCY 20690 JOSE MARIA MATHUR, 9 9 EMERGENCY [facility] T VISIT HIGH/URGE ASSOCIATE NT S SEVERITY [facility] - 9 9 [facility] T EMERGENCY 75600 [place] 9 9 [facility] INC T VISIT MODERATE SEVERITY EMERGENCY 20999 JOSE MARIA CASTANEDA, 9 9 EMERGENCY [facility] T VISIT MODERATE ASSOCIATE SEVERITY S EMERGENCY 41545 [place] 9 9 [facility] T VISIT LIMITED/M INOR PROB [facility] [place] - 9 9 [facility] T EMERGENCY 61579 JOSE MARIA MATHUR, DEPT 9 9 EMER[facility]Y [facility] VISIT SERVICES HIGH SEVERITY& ASSOCIATE THREAT S FUN [facility] [place] - 9 9 [facility] T EMERGENCY 35644 [place] 9 9 [facility] INC T VISIT MODERATE SEVERITY OFFICE 51394 ABEL ROMAN OUTPATIEN 9 9 DON R DON R T VISIT 15 MINUTES EMERGENCY 17842 LUCHO MATHUR, 9 9 [facility] T VISIT ON LOW/MODER SEVERITY [facility] [place] - 9 9 [facility] T OFFICE 06618 ABEL ROMAN OUTPATIEN 9 9 DON R DON R T VISIT 15 MINUTES [facility] [place] - 9 9 [facility] T EMERGENCY 62377 LUCHO MATHUR, 9 9 [facility] T VISIT ON MODERATE SEVERITY EMERGENCY 69520 [place] 9 9 [facility] INC T VISIT LOW/MODER SEVERITY EMERGENCY 88995 LUCHO MATHUR, 9 9 [facility] T VISIT ON MODERATE SEVERITY EMERGENCY 67572 [place] 9 9 [facility] T VISIT LOW/MODER SEVERITY [facility] - 9 9 [facility] T EMERGENCY 43184 LUCHO CASTANEDA, 9 9 [place] [facility] VISIT ON MODERATE SEVERITY EMERGENCY 16395 [place] 9 9 [facility] T VISIT LIMITED/M INOR PROB [facility] [place] - 9 9 [facility] T OFFICE 00833 ABEL ROMAN OUTPATIEN 9 9 DON R DON R T VISIT 15 MINUTES [facility] - 9 9 [facility] T EMERGENCY 41885 LUCHO MATHUR, DEPT 9 9 [facility] VISIT CORPORATI HIGH ON SEVERITY& THREAT FUN EMERGENCY 26850 [place] 9 9 [facility] T VISIT HIGH/URGE NT SEVERITY [facility] - 8 8 [facility] T EMERGENCY 52559 [place] 8 8 [facility] T VISIT LOW/MODER SEVERITY EMERGENCY 59754 LUCHO MATHUR, 8 8 [facility] VISIT ON MODERATE SEVERITY OFFICE 35488 ABEL ROMAN OUTPATIEN 8 8 DON R DON R T VISIT 15 MINUTES EMERGENCY 97309 [place] 8 8 [facility] T VISIT HIGH/URGE NT SEVERITY [facility] - 8 8 [facility] - 8 8 [facility] T EMERGENCY 19193 [place] 8 8 [facility] T VISIT LIMITED/M INOR PROB [facility] [place] - 8 8 [facility] T EMERGENCY 03308 [place] 8 8 [facility] T VISIT LIMITED/M INOR PROB OFFICE 16222 ABEL ROMAN OUTPATIEN 8 8 DON R DON R T [facility]ISIT 15 MINUTES [facility] - 8 8 [facility] T EMERGENCY 31046 [place] 8 8 [facility] T VISIT LOW/MODER SEVERITY OFFICE 59775 ABEL ROMAN OUTPATIEN 8 8 DON R DON R T VISIT 15 MINUTES OFFICE 65383 ABEL ROMAN OUTPATIEN 8 8 DON R DON R T VISIT 15 MINUTES OFFICE 58739 ABEL ROMAN OUTPATIEN 8 8 DON R DON R T VISIT 15 MINUTES [facility] - 8 8 [facility] 20102 [place] CASTANEDA[facility] 8 8 [facility] T VISIT PROF SERV LOW/MODER [facility]VERITY [facility] - 8 8 [facility] 62406 [place] 8 8 [facility] T VISIT LIMITED/M INOR PROB [facility] [place] - 8 8 [facility] T EMERGENCY 91826 [place] 8 8 [facility] T VISIT LOW/MODER SEVERITY OFFICE 39756 ABEL ROMAN OUTPATIEN 8 8 DON R DON R T [facility]ISIT 15 MINUTES [facility] - 8 8 [facility] T EMERGENCY 61803 [place] 8 8 [facility] T VISIT MODERATE SEVERITY OFFICE 50288 ABEL ROMAN OUTPATIEN 8 8 DON R DON R T VISIT 15 MINUTES EMERGENCY 13245 [place] CASTANEDA, 8 8 [facility] T VISIT PROF SERV LOW/MODER SEVERITY EMERGENCY 96076 [place] 8 8 [facility] T VISIT LIMITED/M INOR PROB [facility] [place] - 8 8 [facility] 17471 ABEL ROMAN OUTPATIEN 8 8 DON R DON R T VISIT 25 MINUTES [facility] - 8 8 [facility] 22328 [place] 8 8 [facility] T VISIT LOW/MODER SEVERITY
--- OUTSIDE RECORDS SUMMARY | 2017-06-11 00:47 | External Medical Summary Rpt ---
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 LB 31 8- 5- 00 MA 17 Av ve -A 78 20 20 RT 8 ai CE 70 08 08 la TA 1 PH bl HI AR e N- MA CA CY FF [...] 08 08 la TA 1 PH bl HI AR e N- MA CA CY FF [...] Procedure DOS Code Location Performer Comment BLOOD 18344 [facility] COMPLETE INC INC AUTO&AUTO DIFRNTL WBC COMPREHEN 32688 [facility] SIVE [facility] [address] [facility] MCK[facility] AMYLASE 7 [place] [address] [facility] LIPASE 7 [facility] INC INC GENERAL [address] [facility] 7 [facility] LIPID 19204 [facility] PANEL 7 [place] [address] [facility] THYROXINE 7 [facility] [employer] [facility] RADIOLOGI 17639 L[facility] C [facility] EXAMINATI INC INC ON KNEE 3 VIEWS SIMPLE 89329 KRISTINA SOTINGEAN REPAIR 7 PHYSICIAN U SCALP/NEC S, PLLC K/AX/GUNNER T/TRUNK 2.5CM/< DUP-SCAN 72264 [facility] XTR VEINS 7 MEDICAL IMAGING UNILATERA ASS L/LIMITED STUDY SMR PRIM 11617 [facility] SRC WET 6 PHYSICIAN PHYSICIAN [facility] S GROUP S GROUP NFCT AGT PROF [facility] 85330 ALLERGY MAS MAR ALLG 6 PARTNERS IMMNTX X OF [place]ER[place] W/PRV CO ALLGIC XTRCS NJXS PROF SVCS 84819 ALLERGY MAS MAR ALLG 6 PARTNERS IMMNTX X OF [place] W/PRV CO ALLGIC XTRCS NJXS NJX 72742 [facility] DX/THER 6 [facility] SBST INC INC EPIDURAL/ SUBARACH LUMBAR/SA CRAL 52785 [facility] TRANSVAGI 6 [facility] NAL INC INC PROF SVCS 99489 ALLERGY MAS MAR ALLG 6 PARTNERS IMMNTX X OF [place]ER[place]DE[place] W/PRV CO ALLGIC XTRCS NJXS THERAPEUT 32544 [facility] IC 6 PHYSICIAN PROPHYLAC GROUP TIC/DX INJECTION SUBQ/IM INJECTION J2550 [facility] [place] 6 PHYSICIAN PROMETHAZ GROUP INE HCL UP TO 50 MG URNLS DIP 82726 [facility] [place] 6 PHYSICIAN STICK/TAB GROUP LET RGNT NON-AUTO W/O MICRSCP PROF SVCS 19330 ALLERGY MAS MAR ALLG 6 PARTNERS IMMNTX X OF [place] W/PRV CO ALLGIC XTRCS NJXS IADNA 77315 [facility] NEISSERIA 6 PHYSICIAN DOMI S GROUP GONORRHOE AE DIRECT PROBE TQ CULTURE 81603 [facility] CHLAMYDIA 6 PHYSICIAN DOMI ANY S GROUP SOURCE URINLS 29004 [facility] DIP 6 PHYSICIAN DOMI STICK/TAB S GROUP LET REAGNT NON-AUTO MICRSCPY BLOOD 94688 [facility] OCCULT 6 PHYSICIAN DOMI PEROXIDAS S GROUP E ACTV QUAL FECES 1-3 SPEC URINE 52336 [facility] 6 PHYSICIAN PHYSICIAN TEST S GROUP S GROUP VISUAL [facility] G0463 [facility] OUTPATIEN 6 [facility] T CLIN INC INC VISIT ASSESS & MGMT PT PROF [facility] 01854 ALLERGY MAS MAR ALLG 6 PARTNERS IMMNTX X OF FERNANDEZ W/PRV CO ALLGIC XTRCS NJXS PREPJ& 61707 ALLERGY MAS MAR ALLERGEN 6 PARTNERS IMMUNOTHE OF FERNANDEZ RAPY CO 1/CELEBRITY MANAGER ANTIGEN COMPUTER- 97323 [facility] AIDED 6 MEDICAL DETECTION IMAGING ASS SCREENING MAMMOGRAP HY SCREENING G0202 [place] [address] MEDICAL MAMMOGRAP IMAGING HY YOLANDA ASS INCL CAD WHEN PERFORMD SPACR A4627 [facility] [place] AUD BAG/RESRV 6 EQUIPMENT OR W/WO INC MASK W/METRD DOSE INHAL MRI 89625 [facility] SPINAL 6 [facility] CANAL INC INC LUMBAR W/O CONTRAST MATERIAL 3D 07660 [facility] RENDERING 6 [facility] W/INTERP INC INC & POSTPROCE SS SUPERVISI ON DRUG TST G0477 [facility] L[facility] PRESUMP;C 6 [facility] PBL BEING INC INC READ DC OPT OBV ONLY THERAPEUT 32857 [facility] MCKOY IC PX 1/> 6 [facility] AREAS INC INC EACH 15 MIN EXERCISES APPL 38182 LEELEE LEELEE MODALITY 6 [facility] 1/> AREAS INC INC ELEC STIMJ UNATTENDE D APPL 23899 LEELEE LEELEE MODALITY 6 [facility] 1/> AREAS INC INC IONTOPHOR ESIS EA 15 MIN APPLICATI 41436 [facility] MONTEMAYORON ON 6 [facility] MODALITY INC INC 1/> AREAS HOT/COLD PACKS PHYSICAL 76327 [facility] M[facility]ON THERAPY 6 [facility] EVALUATIO INC INC N RADEX 45142 [facility] [place] [facility] 6 RADIOLOGY RHO COMPLETE MINIMUM 3 VIEWS RADEX 99962 [facility] 6 [facility] MINIMUM 3 VIEWS RADEX 77450 [facility] [address] [facility] NEEDLE 33025 [facility] EMG EA 6 N EXTREMTY NEUROLOGY W/PARASPI NL [facility] COMPLETE NERVE 90739 [facility] CONDUCTIO 6 N N STUDIES NEUROLOGY 5-6 STUDIES BLOOD 28871 [facility] COUNT 5 [facility] COMPLETE INC INC AUTO&AUTO DIFRNTL WBC CULTURE 42969 [facility] BACTERIAL 5 [facility] INC INC QUANTTATI VE COLONY COUNT URINE URNLS DIP 56900 [facility] 5 [facility] STICK/TAB INC INC LET REAGENT AUTO MICROSCOP Y COMPREHEN 15573 [facility] SIVE 5 [facility] [place] [address] LEE[facility] MCK[facility] MAGNESIUM 5 [place] [address] [facility] MCK[facility] LIPASE 5 [facility] INC INC THERAPEUT 36714 [facility] MCKOY IC PX 1/> 5 [facility] AREAS INC INC EACH 15 MIN EXERCISES APPLICATI 30227 [facility] ON 5 [facility] MODALITY INC INC 1/> AREAS HOT/COLD PACKS E-STIM G0283 LEELEE LEELEE 1/> AREAS 5 [facility] OTH THAN INC INC WND CARE PART TX PLAN APPLICATI 99903 [facility] ON 5 [facility] MODALITY INC INC 1/> AREAS HOT/COLD PACKS E-STIM G0283 LEELEE LEELEE 1/> AREAS 5 [facility] OTH THAN INC INC WND CARE PART TX PLAN THERAPEUT 90130 [facility]EE[facility] MCKOY IC PX 1/> 5 [facility] AREAS INC INC EACH 15 MIN EXERCISES PHYSICAL 80120 [facility] THERAPY 5 [facility] EVALUATIO INC INC N SHOULDER L3650 [facility] 5 TECHNOLOG TECHNOLOG FIG 8 IES INC IES INC ABDUCT RESTRAINE R PREFAB RADEX 48511 [facility] 5 MEDICAL ENEIDA COMPLETE IMAGING MINIMUM 3 ASS VIEWS INJ J0702 A C KILPELA BETAMETHA 5 RUIZ BOUDREAUX SONE PSC ACETATE & PHOSPHATE 3 MG INJECTION J1885 A C KILPELA 5 RUIZ BOUDREAUX KETOROLAC PSC TROMETHAM INE PER 15 MG THERAPEUT 28630 A C KEMIPELA IC 5 RUIZ GARRETT JEZuri PROPHYLAC PSC TIC/DX INJECTION SUBQ/IM CULTURE 93244 [facility] BACTERIAL 5 DIAGNOSTI DIAGNOSTI CS CS QUANTTATI VE COLONY COUNT URINE CULTURE 75926 [facility] BCT 5 DIAGNOSTI DIAGNOSTI ISOL&PRSM CS CS PTV ID ISOLATE EA URINE URINLS 63247 A C KILPELA DIP 5 RUIZ BOUDREAUX STICK/TAB PSC LET REAGNT NON-AUTO MICRSCPY INJECTION J1885 [facility] [place] 5 PHYSICIAN EUG KETOROLAC S GROUP TROMETHAM INE PER 15 MG THERAPEUT 81338 [facility] [place] IC 5 PHYSICIAN EUG PROPHYLAC S GROUP TIC/DX INJECTION SUBQ/IM IAADIADOO 48657 [facility] [place] 4 PHYSICIAN EUG INFLUENZA S GROUP COMPREHEN 24444 [facility] SIVE 4 [facility] METABOLIC INC INC PANEL BLOOD 13910 [facility] COUNT 4 [facility] COMPLETE INC INC AUTO&AUTO DIFRNTL WBC APPLICATI 84858 [facility] ON 4 [facility] MODALITY INC INC 1/> AREAS HOT/COLD PACKS APPL 03267 [facility] MODALITY 4 [facility] 1/> AREAS INC INC ULTRASOUN D EA 15 MIN APPL 56737 [facility] MODALITY 4 [facility] 1/> AREAS INC INC ELEC STIMJ UNATTENDE D THERAPEUT 69413 [facility] IC 4 PHYSICIAN ALCEY PROPHYLAC S GROUP TIC/DX INJECTION SUBQ/IM INJECTION J2550 [facility] [place] 4 PHYSICIAN LACEY PROMETHAZ S GROUP INE HCL UP TO 50 MG APPL 53897 [facility] MODALITY 4 [facility] 1/> AREAS INC INC ULTRASOUN D EA 15 MIN APPLICATI 06040 [facility] ON 4 [facility] MODALITY INC INC 1/> AREAS HOT/COLD PACKS APPL 36575 [facility] MCKOY MODALITY 4 [facility] 1/> AREAS INC INC ELEC STIMJ UNATTENDE D THERAPEUT 40878 LEELEE MCKOY IC PX 1/> 4 [facility] AREAS INC INC EACH 15 MIN EXERCISES THERAPEUT 93132 [facility] M[facility] IC PX 1/> 4 [facility] AREAS INC INC EACH 15 MIN EXERCISES APPL 94585 [facility] MODALITY 4 [facility] 1/> AREAS INC INC ELEC STIMJ UNATTENDE D APPL 01089 [facility] MODALITY 4 [facility] 1/> AREAS INC INC ULTRASOUN D EA 15 MIN APPLICATI 58574 [facility] ON 4 [facility] MODALITY INC INC 1/> AREAS HOT/COLD PACKS APPLICATI 84021 L[facility] MCKOY ON 4 [facility] MODALITY INC INC 1/> AREAS HOT/COLD PACKS APPL 53340 [facility]CKOY MODALITY 4 [facility] 1/> AREAS INC INC ULTRASOUN D EA 15 MIN APPL 52785 [facility] MODALITY 4 [facility] 1/> AREAS INC INC ELEC STIMJ UNATTENDE D THERAPEUT 62378 [facility] M[facility]OY IC PX 1/> 4 [facility] AREAS INC INC EACH 15 MIN EXERCISES THERAPEUT 01468 [facility] MCKOY IC PX 1/> 4 [facility] AREAS INC INC EACH 15 MIN EXERCISES APPL 97997 [facility] MODALITY 4 [facility] 1/> AREAS INC INC ELEC STIMJ UNATTENDE D APPL 93906 [facility] MODALITY 4 [facility] 1/> AREAS INC INC ULTRASOUN D EA 15 MIN APPLICATI 26398 [facility] ON 4 [facility] MODALITY INC INC 1/> AREAS HOT/COLD PACKS APPLICATI 96264 [facility]CKOY ON 4 [facility] MODALITY INC INC 1/> AREAS HOT/COLD PACKS APPL 18499 [facility] MODALITY 4 [facility] 1/> AREAS INC INC ULTRASOUN D EA 15 MIN APPL 50425 [facility] MODALITY 4 [facility] 1/> AREAS INC INC ELEC STIMJ UNATTENDE D THERAPEUT 21018 [facility] IC PX 1/> 4 [facility] AREAS INC INC EACH 15 MIN EXERCISES THERAPEUT 97333 [facility] IC PX 1/> 4 [facility] AREAS INC INC EACH 15 MIN EXERCISES APPL 31046 [facility] MODALITY 4 [facility] 1/> AREAS INC INC ELEC STIMJ UNATTENDE D APPL 68041 [facility] MODALITY 4 [facility] 1/> AREAS INC INC ULTRASOUN D EA 15 MIN APPLICATI 23433 [facility] ON 4 [facility] MODALITY INC INC 1/> AREAS HOT/COLD PACKS APPLICATI 16202 [facility]CKOY ON 4 [facility] MODALITY INC INC 1/> AREAS HOT/COLD PACKS APPL 46248 LEELEE LEELEE MODALITY 4 [facility] 1/> AREAS INC INC ELEC STIMJ UNATTENDE D THERAPEUT 63192 [facility] M[facility]OY IC PX 1/> 4 [facility] AREAS INC INC EACH 15 MIN EXERCISES PHYSICAL 33386 [facility] THERAPY 4 [facility] EVALUATIO INC INC N RADEX 12468 [place] [facility] SPINE 4 MEDICAL MARCELLE LUMBOSACR IMAGING AL ASS MINIMUM 4 VIEWS THERAPEUT 71649 A Timi MENENDEZ IC 4 RUIZ BOUDREAUX PROPHYLAC PSC TIC/DX INJECTION SUBQ/IM CULTURE 22564 [facility] QUEST BACTERIAL 4 DIAGNOSTI DIAGNOSTI CS CS QUANTTATI VE COLONY COUNT URINE URINLS 90927 A Timi MENENDEZ DIP 4 RUIZ GARRETT JEA STICK/TAB PSC LET REAGNT NON-AUTO MICRSCPY INJECTION J1200 [facility] [place] 4 PHYSICIAN LACEY DIPHENHYD S GROUP RAMINE HCL UP TO 50 MG INJECTION J1885 [facility] [place] 4 PHYSICIAN LACEY KETOROLAC S GROUP TROMETHAM INE PER 15 MG INJECTION J2550 [facility] 4 PHYSICIAN LACEY PROMETHAZ S GROUP INE HCL UP TO 50 MG THERAPEUT 58161 [facility] IC 4 PHYSICIAN LACEY PROPHYLAC S GROUP TIC/DX INJECTION SUBQ/IM BLOOD 17574 RUIZ MELCHOR A COUNT 4 COMPLETE AUTO&AUTO DIFRNTL WBC BLOOD 00891 [facility] OCCULT 4 [facility] PEROXIDAS INC INC E ACTV QUAL FECES 1-3 SPEC SMR PRIM 97315 [facility] MCKOY SRC 4 [facility] GRAM/GIEM INC INC SA STAIN BCT FUNGI/LIAM L GLUCOSE 07072 FIELD AMB FIELD AMB QUANTITAT 4 GAETANO BLOOD XCPT REAGENT STRIP BLOOD 74942 [facility] COUNT 4 MED CTR, MED CTR, COMPLETE ATTN: ATTN: AUTO&AUTO [place] [address] [facility] THYROID 4 MED CTR, MED CTR, STIMULATI ATTN: ATTN: ABHINAV VELASQUEZ HORMONE TSH COMPREHEN 34293 [facility] SIVE 4 MED CTR, MED CTR, METABOLIC ATTN: ATTN: PANEL DENMarco Antonio DENE INJECTION J2550 [facility] CHELO 4 CONRAD CONRAD PROMETHAZ INE HCL UP TO 50 MG INJECTION J1885 [facility] CHELO 4 CONRAD CONRAD KETOROLAC TROMETHAM INE PER 15 MG INJECTION J1200 [facility]LO CHELO 4 CONRAD CONRAD DIPHENHYD RAMINE HCL UP TO 50 MG THERAPEUT 00055 CHELO CHELO IC 4 CONRAD CONRAD PROPHYLAC TIC/DX INJECTION SUBQ/IM THERAPEUT 50727 KILPELA KILPELA IC 4 JEA JEA PROPHYLAC TIC/DX INJECTION SUBQ/IM INJECTION J1030 KILPELA KILPELA 4 JEA JEA METHYLPRE DNISOLONE ACETATE 40 MG INJ J0702 KILPELA KILPELA BETAMETHA 4 JEA JEA SONE ACETATE & PHOSPHATE 3 MG INJ J0702 KILPELA KILPELA BETAMETHA 4 JEA JEA SONE ACETATE & PHOSPHATE 3 MG INJECTION J1030 KILPELA KILPELA 4 JEA JEA METHYLPRE DNISOLONE ACETATE 40 MG THERAPEUT 39101 KILPELA KILPELA IC 4 JEA JEA PROPHYLAC TIC/DX INJECTION SUBQ/IM THERAPEUT 74555 MARTHA THOMAS SEFERINO IC 4 PROPHYLAC TIC/DX INJECTION SUBQ/IM INJECTION J1885 MARTHA THOMAS SEFERINO 4 KETOROLAC TROMETHAM INE PER 15 MG INJECTION J2550 [facility] THOMAS SEFERINO 4 PROMETHAZ INE HCL UP TO 50 MG NONINVASI 00123 FIELD AMB FIELD AMB VE 4 EAR/PULSE OXIMETRY SINGLE DETER INJECTION J1885 FIELD AMB FIELD AMB 4 KETOROLAC TROMETHAM INE PER 15 MG THERAPEUT 60646 FIELD AMB FIELD AMB IC 4 PROPHYLAC TIC/DX INJECTION SUBQ/IM THERAPEUT 17923 MARTHA THOMAS SEFERINO IC 3 PROPHYLAC TIC/DX INJECTION SUBQ/IM INJECTION J1885 MARTHA THOMAS SEFERINO 3 KETOROLAC TROMETHAM INE PER 15 MG INJECTION J1040 MARTHA THOMAS SEFERINO 3 METHYLPRE DNISOLONE ACETATE 80 MG IIV3 77934 FIELD AMB FIELD AMB VACCINE 3 SPLIT VIRUS 0.5 ML DOSAGE IM USE INJ J0702 FIELD AMB FIELD AMB BETAMETHA 3 SONE ACETATE & PHOSPHATE 3 MG IM ADM 52417 FIELD AMB FIELD AMB PRQ ID 3 SUBQ/IM NJXS 1 VACCINE THERAPEUT 14377 FIELD AMB FIELD AMB IC 3 PROPHYLAC TIC/DX INJECTION SUBQ/[place] [address] NADIRA WADDELL PAT SURG 3 PATHOLOGY GROSS&LACEY ROSCOPIC EXAM CUL 06548 [facility] PRSMPTV 3 [facility] PTHGNC INC INC ORGANISMS SCR DNS CHART SPECIAL 14727 NADIRA WADDELL PAT STAIN 3 GROUP 1 MICROORGA NISMS I&R SPCL STN 79868 NADIRA WADDELL PAT 2 I&R 3 EXCPT MICROORG/ ENZYME/IM CYT ANES 49018 NATALIO LANCE UPPER GI 3 CONRAD CONRAD ENDOSCOPY PROXIMAL TO DUODENUM EGD 84926 [facility] TRANSORAL 3 [facility] BIOPSY INC INC SINGLE/MU LTIPLE INJECTION J1885 FIELD AMB FIELD AMB 3 KETOROLAC TROMETHAM INE PER 15 MG THERAPEUT 74480 FIELD AMB FIELD AMB IC 3 PROPHYLAC TIC/DX INJECTION SUBQ/IM BLOOD 66348 A C MELCHOR A COUNT 3 RUIZ GARRETT COMPLETE PSC AUTO&AUTO DIFRNTL WBC COLLECTIO 24103 A C MELCHOR A N VENOUS 3 RUIZ GARRETT [place] [address] L[facility] M[facility] AMYLASE 3 [facility] INC INC COMPREHEN 26860 [facility] M[facility] SIVE 3 [facility] METABOLIC INC INC PANEL CUL BACT 33103 L[facility] M[facility] STOOL 3 [facility] AEROBIC INC INC ISOL SALMONELL A&SHIGELL BLOOD 88589 [facility] COUNT 3 [facility] COMPLETE INC INC AUTO&[place] [address] L[facility] M[facility] CLOSTRIDI 3 [facility] [place] [address] [facility] M[facility] GIARDIA 3 [facility] INC INC SMR PRIM 62466 [facility] SRC 3 [facility] GRAM/GIEM INC INC SA STAIN BCT FUNGI/LIAM L FLUORESCE 91597 [facility] NT 3 [facility] NONNFCT INC INC AGT ANTB TITER EA ANTIBODY OVA&JULIO C 47241 [facility] M[facility] ITES 3 [facility] DIRECT INC INC SMEARS CONCENTRA [place]ION & [place] [address] LEELEE MCKOY GAMMAGLOB 3 [facility] ULIN IGA [place] [address] LEE[facility] M[facility] LIPASE 3 [facility] INC INC THERAPEUT 20944 FAMILY FAMILY IC 3 CARE CARE PROPHYLAC ASSOCIATE ASSOCIATE TIC/DX S S INJECTION SUBQ/IM BLOOD 37420 FAM[facility] FAMILY COUNT 3 CARE CARE COMPLETE ASSOCIATE ASSOCIATE AUTO&AUTO S S DIFRNTL WBC INJECTION J2550 FAMILY FAMILY 3 CARE CARE PROMETHAZ ASSOCIATE ASSOCIATE INE HCL S S UP TO 50 MG ARTHROCEN 20857 PETTEY PETTEY TESIS 3 JAM JAM ASPIR&/IN J MAJOR JT/BURSA W/O US INJ J0702 PETTEY PETTEY BETAMETHA 3 JAM JAM SONE ACETATE & PHOSPHATE 3 MG RADIOLOGI 99004 ABEL Capellan 3 DON DON EXAMINATI ON KNEE 1/2 VIEWS HEMOGLOBI 79834 COMBINED COMBINED N 3 PHYSICIAN PHYSICIAN GLYCOSYLA S LA S LA CLAIRE A1C LIPID 25796 COMBINED COMBINED PANEL 3 PHYSICIAN PHYSICIAN S LA S LA COMPREHEN 17418 COMBINED COMBINED SIVE 3 PHYSICIAN PHYSICIAN METABOLIC S LA S LA PANEL ARTHROCEN 29832 PETTEY PETTEY TESIS 3 JAM JAM ASPIR&/IN J MAJOR JT/BURSA W/O US INJ J0702 PETTEY PETTEY BETAMETHA 3 JAM JAM SONE ACETATE & PHOSPHATE 3 MG THERAPEUT 09395 LEELEE MCKOY IC PX 1/> 3 [facility] AREAS INC INC EACH 15 MIN EXERCISES THERAPEUT 51295 LEELEE MCKOY IC PX 1/> 3 [facility] AREAS INC INC EACH 15 MIN EXERCISES PHYSICAL 65577 [facility] M[facility] THERAPY 3 [facility] EVALUATIO INC INC N INJ J0702 PETTEY PETTEY BETAMETHA 3 JAM JAM SONE ACETATE & PHOSPHATE 3 MG ARTHROCEN 82637 PETTEY PETTEY TESIS 3 JAM JAM ASPIR&/IN J MAJOR JT/BURSA W/O US RADEX 56023 LEELEE MCKYO SHOULDER 3 [facility] COMPLETE INC INC MINIMUM 2 VIEWS IAADIADOO 30647 ROMAN ROMAN 3 DON DON INFLUENZA INJECTION J2405 [facility] M[facility]OY 2 [facility] ONDANSETR INC INC ON HCL PER 1 MG COMPREHEN 20282 LEELEE MCKOY SIVE 2 [facility] [place] [address] LEELEE [facility] AMYLASE 2 [facility] [place] [address] LEELEE M[facility] INFUSION 2 [facility] THERAPY/P INC INC ROPHYLAXI S /DX 1ST TO 1 HR THERAPEUT 40070 LEELEE MCKOY IC 2 [facility] INJECTION INC INC IV PUSH EACH NEW DRUG URINE 58426 LEELEE MCKOY 2 [facility] TEST INC INC VISUAL COLOR CMPRSN METHS BLOOD 54910 [facility]EE[facility]E MCKOY COUNT 2 [facility] COMPLETE INC INC AUTO&[place] [address] LEELEE MCKOY LIPASE 2 [facility] INC INC BOTULINUM J0585 [facility] TOXIN 2 DOMI DOMI TYPE A PER UNIT CHEMODENE 99521 [facility] RVATION 2 DOMI DOMI NECK MUSCLE CHEMODNRV 24312 [facility] TJ MUSC 2 DOMI DOMI MUSC INNERVATE D FACIAL NRV UNIL IAADIADOO 00522 ABEL ROMAN 2 DON DON STREPTOCO CCUS GROUP A IAADIADOO 11778 ROMAN ROMAN 2 DON DON STREPTOCO CCUS GROUP A IAADIADOO 28055 ROMAN ROMAN 2 DON DON STREPTOCO CCUS GROUP A URNLS DIP 85983 ROMAN ROMAN 2 DON DON STICK/TAB LET RGNT NON-AUTO W/O MICRSCP URNLS DIP 60669 ROMAN ROMAN 2 DON DON STICK/TAB LET RGNT NON-AUTO W/O MICRSCP URNLS DIP 86395 ROMAN ROMAN 2 DON DON STICK/TAB LET RGNT NON-AUTO W/O MICRSCP URNLS DIP 56773 ROMAN ROMAN 2 DON DON STICK/TAB LET RGNT NON-AUTO W/O MICRSCP URNLS DIP 35318 ROMAN ROMAN 2 DON DON STICK/TAB LET RGNT NON-AUTO W/O MICRSCP URNLS DIP 77602 ROMAN ROMAN 2 DON DON STICK/TAB LET RGNT NON-AUTO W/O MICRSCP URNLS DIP 75312 [facility] STICK/TAB INC INC LET REAGENT AUTO MICROSCOP Y HEMOGLOBI 89602 COMBINED COMBINED N 2 PHYSICIAN PHYSICIAN CARLOS ENRIQUE S [place] A1C CHEMODENE 76667 [place] [facility] RVATION 2 DOMI DOMI NECK MUSCLE CHEMODNRV 63278 [place] TJ MUSC 2 DOMI DOMI MUSC INNERVATE D FACIAL NRV UNIL CHEMODENE 55094 [place] RVATION 2 DOMI DOMI ECCRINE GLANDS OTH AREA PER DAY THERAPEUT 78087 LEELE[facility] MCKOY IC 2 [facility] PROPHYLAC INC INC TIC/DX INJECTION SUBQ/[place] [address] LEELEE MCKOY LIPASE 2 [facility] INC THERAPEUT 48758 LEELEE MCKOY IC 2 [facility]JE[facility] [place] [address] LEELEE LABONE INFUSION 2 [facility] INC DATA WAREHOUSING ARCHITECT THERAPY/P INC ROPHYLAXI S /DX 1ST TO 1 HR BLOOD 36179 LEELEE MCKYO COUNT 2 [facility] COMPLETE INC INC AUTO&AUTO DIFRNTL WBC COMPREHEN 88793 LEELEE MCKOY SIVE 2 [facility] [place] [address] LEELEE MCKOY AMYLASE 2 [facility] INC INC SCREENING G0202 LEELEE MCKOY 2 [facility] MAMMOGRAP INC INC HY YOLANDA INCL CAD WHEN PERFORMD COMPUTER- 59434 LEELEE MCKOY AIDED 2 [facility] DETECTION INC INC SCREENING MAMMOGRAP HY BLOOD 14323 ROMAN ROMAN OCCULT 2 DON DON PEROXIDAS E ACTV QUAL FECES 1 DETER CYTP 50026 [facility] QUEST SLIDES 2 DIAGNOSTI DIAGNOSTI CERV/VAG CS CS MNL SCRN PHYSICIAN SUPV THERAPEUT 94818 LEELEE MCKOY IC 2 [facility] PROPHYLAC INC INC TIC/DX INJECTION SUBQ/IM URNLS DIP 19324 ROMAN ROMAN 2 DON DON STICK/TAB LET RGNT NON-AUTO W/O MICRSCP FIBRIN 87514 LEELEE MCKOY DGRADJ 2 [facility] PRODUCTS INC INC D-DIMER QUAL/SEMI [place] THERAPEUT 99377 LEELEE MCKOY IC 2 [facility] PROPHYLAC INC INC TIC/DX INJECTION SUBQ/IM THERAPEUT 27371 LEELEE MCKOY IC 2 [facility] PROPHYLAC INC INC TIC/DX INJECTION SUBQ/IM BLOOD 95419 LEELEE MCKOY COUNT 2 [facility] COMPLETE INC INC AUTO&AUTO DIFRNTL WBC BASIC 23242 LEELEE MCKOY METABOLIC 2 [facility] PANEL INC INC CALCIUM TOTAL URNLS DIP 07045 [facility] MCKOY [facility] STICK/TAB INC INC LET REAGENT AUTO MICROSCOP Y THERAPEUT 04630 LEELEE MCKOY IC 2 [facility] PROPHYLAC INC INC TIC/DX INJECTION SUBQ/IM URNLS DIP 95559 L[facility] MCKOY 1 [facility] STICK/TAB INC INC LET REAGENT AUTO MICROSCOP Y BASIC 95820 LEELEE MCKOY METABOLIC 1 [facility] PANEL INC INC CALCIUM TOTAL BLOOD 29864 LEELEE MCKOY COUNT 1 [facility] COMPLETE INC INC AUTO&[place] [address] ELELEE MCKOY INFUSION 1 [facility] THERAPY/P INC INC ROPHYLAXI S /DX 1ST TO 1 HR OPHTH 64440 SALLY CASILLAS OLAYINKA MEDICAL 1 VISION XM&EVAL COMPRE NEW PT 1/> VST COMPUTERI 68698 SALLY CASILLAS OLAYINKA ZED 1 VISION OPHTHALMI C IMAGING OPTIC NERVE SEDIMENTA 51392 LEELEE MCKOY TION RATE 1 [facility] RBC INC INC NON-AUTOM ATED 3D 16735 LEELEE LEELEE RENDERING 1 [facility] W/INTERP INC INC & POSTPROCE SS SUPERVISI ON BLOOD 08184 LEELEE MCKOY COUNT 1 [facility] COMPLETE INC INC AUTO&AUTO DIFRNTL WBC COMPREHEN 52949 LEELEE MCKOY SIVE 1 [facility] [place] [address] LEELEE MCKOY HEAD/BRAI 1 [facility] N W/O INC INC CONTRAST MATERIAL URNLS DIP 50480 LEELEE LEELEE 1 [facility] STICK/TAB INC INC LET REAGENT AUTO MICROSCOP Y URNLS DIP 65311 LEELEEJOSEFINA MCKOY 1 [facility] STICK/TAB INC INC LET REAGENT AUTO MICROSCOP Y COMPREHEN 09616 LEELEE MCKOY SIVE 1 [facility] METABOLIC INC INC PANEL BLOOD 32971 LEELEE MCKOY COUNT 1 [facility] COMPLETE INC INC AUTO&[place] [address] LEELEE MCKOY LIPASE 1 [facility] [place] [address] LEELEE MCKOY AMYLASE 1 [facility] INC INC BLOOD 69247 LEELEE MCKOY COUNT 1 [facility] COMPLETE INC INC AUTO&AUTO DIFRNTL WBC COMPREHEN 00958 LEELEE MCKOY SIVE 1 [facility] METABOLIC INC INC PANEL URNLS DIP 37696 [facility] [facility] STICK/TAB INC INC LET REAGENT AUTO MICROSCOP Y APPLICATI 30991 LEELEE MCKOY ON 1 [facility] MODALITY INC INC 1/> AREAS HOT/COLD PACKS APPL 36792 LEELEE MCKOY MODALITY 1 [facility] 1/> AREAS INC INC ELEC STIMJ UNATTENDE D PHYSICAL 00379 LEELEE MCKOY THERAPY 1 [facility] EVALUATIO INC INC N THERAPEUT 92273 LEELEE MCKOY IC PX 1/> 1 [facility] AREAS INC INC EACH 15 MIN EXERCISES RADEX 19510 LEELEE MCKOY SPINE 1 [facility] CERVICAL INC INC 6 OR MORE VIEWS RADEX 21566 [place] IZAIAH SPINE 1 MEDICAL MARCELLE CERVICAL IMAGING 4 OR 5 ASS VIEWS IAADIADOO 09499 ROMAN ROMAN 0 [place] [address] [place] IZAIAH HEAD/BRAI 0 MEDICAL MARCELLE N W/O IMAGING CONTRAST ASS MATERIAL 3D 46300 LEELEE MCKOY RENDERING 0 [facility] W/INTERP INC INC & POSTPROCE SS SUPERVISI ON OBSERVATI 89988 ROMAN ROMAN ON CARE 0 DON DON DISCHARGE MANAGEMEN T INITIAL 47357 [place] ROJAS STEVE INPATIENT 0 MEDICAL CONSULT SERV NEW/ESTAB FOUNDATIO PT 55 MIN RADEX ABD 60320 [place] FAIZAN COMPL 0 MEDICAL JOSIE AQT ABD IMAGING W/S/E/D ASS VIEWS 1 VIEW CH INITIAL 98370 ABEL ROMAN OBSERVATI 0 DON DON ON CARE/DAY 50 MINUTES URINE 66582 [facility]E MCKOY 0 [facility] TEST INC INC VISUAL COLOR CMPRSN METHS URNLS DIP 79717 L[facility]E MCKOY 0 [facility] STICK/TAB INC INC LET REAGENT AUTO MICROSCOP Y RADEX ABD 09728 LEELEE MCKOY COMPL 0 [facility] AQT ABD INC INC W/S/E/D VIEWS 1 VIEW COMPREHEN 58531 LEELEE MCKOY SIVE 0 [facility] [place] [address] LEELEE MCKOY AMYLASE 0 [facility] INC INC BLOOD 70307 LEELEE MCKOY COUNT 0 [facility] COMPLETE INC INC AUTO&[place] [address] LEELEE MCKOY LIPASE 0 [facility] [place] [address] LEELEE MCKOY INFUSION 0 [facility] THERAPY/P INC INC ROPHYLAXI S /DX 1ST TO 1 HR CUL BACT 02658 LEELEE MCKOY XCPT 0 [facility] URINE INC INC BLOOD/STO OL AEROBIC ISOL CUL BACT 12837 LEELEE MCKOY AEROBIC 0 [facility] ADDL INC INC METHS DEFINITIV E EA ISOL SUSCEPTIB 47028 LEELEE MCKOY LTY STDY 0 [facility] ANTIMICRB INC INC IAL MICRO/AGA R DILUTJ INCISION 16436 JOSE MARIA HEADLEY & 0 EMERGENCY III JESSEE DRAINAGE SERVICES ABSCESS COMPLICAT ED/MULTIP LE OTH 8604 LEELEE MCKOY INCISION 0 [facility] W/DRAINAG INC INC E SKIN&SUBC UTANEOUS TISSUE 3D 88772 SOLANGE C IZAIAH RENDERING 0 IZAIAH MARCELLE W/INTERP & POSTPROCE SS SUPERVISI ON MRI 86026 SOLANGE C IZAIAH SPINAL 0 IZAIAH MARCELLE CANAL L[place] [address] LEELEEJOSEFINA MCKOY RETROPERI 0 [facility] TONEAL INC INC REAL TIME W/IMAGE COMPLETE SUSCEPTIB 34290 LEELEE MCKOY LTY STDY 0 [facility] ANTIMICRB INC INC IAL MICRO/AGA R DILUTJ URNLS DIP 00386 [facility]E MCKOY 0 [facility] STICK/TAB INC INC LET REAGENT AUTO MICROSCOP Y INCISION 71565 JOSE MARIA HEADLEY & 0 EMERGENCY III, DRAINAGE SERVICES MURRAY GAXIOLA COMPLICAT ASSOCIATE ED/MULTIP S LE CT PELVIS 91111 LEELEE MCKOY W/O 0 [facility] CONTRAST INC INC MATERIAL 3D 09710 GAVIN IZAIAH, RENDERING 0 MEDICAL SOLANGE IMAGING W/INTERP& ASSOCIATE POSTPROC S DIFF WORK STATION CUL BACT 86997 LEELEE MCKOY AEROBIC 0 [facility] ADDL INC INC METHS DEFINITIV E EA ISOL CUL BACT 14956 LEELEE MCKOY XCPT 0 [facility] URINE INC INC BLOOD/STO OL AEROBIC ISOL COMPREHEN 17609 LEELEE MCKOY SIVE 0 [facility] METABOLIC INC INC PANEL BLOOD 70167 LEELEE MCKOY COUNT 0 [facility] COMPLETE INC INC AUTO&[place] [address] LEELEE MCKOY INFUSION 0 [facility] THERAPY/P INC INC ROPHYLAXI S /DX 1ST TO 1 [place] [address] LEELEE MCKOY AMYLASE 0 [place] [address] LEELEE LEELEE ABDOMEN 0 [facility] W/[place] [address] LEELEE MCKOY LIPASE 0 [facility] INC INC OTH 8604 LEELEE LEELEE INCISION 0 [facility] W/DRAINAG INC INC E SKIN&SUBC UTANEOUS TISSUE RADEX 47026 ROMAN, ROMAN, SPINE 0 DON R DON R LUMBOSACR [place] MINIM[place] 4 [place] [address] LEELEE MCKOY STREPTOCO 0 [facility] [place] [address] LEELEE MCKOY INFUSION 0 [facility] THERAPY/P INC INC ROPHYLAXI S /DX 1ST TO 1 HR CULTURE 83705 LEELEE MCKOY BACTERIAL 0 [facility] INC INC QUANTTATI VE COLONY COUNT URINE URNLS DIP 76084 LEELEE LEELEE 0 [facility] STICK/TAB INC INC LET REAGENT AUTO MICROSCOP Y URNLS DIP 42532 [facility]E MCKOY 9 [facility] STICK/TAB INC INC LET REAGENT AUTO MICROSCOP Y BLOOD 96549 LEELEE LEELEE COUNT 9 [facility] COMPLETE INC INC AUTO&AUTO DIFRNTL WBC COMPREHEN 96104 LEELEE MCKOY SIVE 9 [facility] METABOLIC INC INC PANEL IAADI 91543 LEELEE LEELEE INFFLUENZ 9 [facility] A A VIRUS INC INC IAADI 10021 LEELEE LEELEE INFLUENZA 9 [facility] B VIRUS INC INC RADEX 59403 [place] FAIZAN, HAND 9 MEDICAL ZOË P MINIMUM [address] [place] [address] LEELEE MCKOY HEAD/BRAI 9 [facility] N W/O INC INC CONTRAST MATERIAL 3D 63550 [place] IZAIAH, TITUS 9 MEDICAL SOLANGE W/INTERP IMAGING & ASSOCIATE POSTPROCE S SS SUPERVISI ON URNLS DIP 29321 LEELEE LEELEE 9 [facility] STICK/TAB INC INC LET REAGENT AUTO MICROSCOP Y URNLS DIP 29866 LEELEEJOSEFINA MONTEMAYORON 9 [facility] STICK/TAB INC INC LET REAGENT AUTO MICROSCOP Y BLOOD 85918 LEELEE MCKOY COUNT 9 [facility] COMPLETE INC INC AUTO&AUTO DIFRNTL WBC COMPREHEN 97706 LEELEE MCKOY SIVE 9 [facility] METABOLIC INC INC PANEL ECG 22382 LEELEE FREGOSOSON, ROUTINE 9 [facility] W/LEAST PROF SERV 12 LDS I&R ONLY RHYTHM 93628 LEELEE MCKOY ECG 1-3 9 [facility] LEADS INC INC TRACING ONLY W/O I&[place] [address] LEELEE MCKOY INFUSION 9 [facility] THERAPY/P INC INC ROPHYLAXI S /DX 1ST TO 1 HR ECG 90930 LEELEE MCKOY ROUTINE 9 [facility] ECG INC INC W/LEAST 12 LDS TRCG ONLY W/O I&R URNLS DIP 13474 LEELEE MCKOY 9 [facility] STICK/TAB INC INC LET REAGENT AUTO MICROSCOP Y CULTURE 18451 LEELEE MCKOY BACTERIAL 9 [facility] INC INC QUANTTATI VE COLONY COUNT URINE URNLS DIP 20463 LEELEE MCKOY 9 [facility] STICK/TAB INC INC LET REAGENT AUTO MICROSCOP Y BLOOD 96727 LEELEE MCKOY COUNT 9 [facility] COMPLETE INC INC AUTO&AUTO DIFRNTL WBC COMPREHEN 30667 LEELEE MCKOY SIVE 9 [facility] [place] [address] LEELEE MCKOY AMYLASE 9 [facility] [place] [address] LEELEE MCKOY LIPASE 9 [place] [address] LEELEE MCKOY INFUSION 9 [facility] THERAPY/P INC INC ROPHYLAXI S /DX 1ST TO 1 HR COMPREHEN 05897 LEELEE MCKOY SIVE 9 [facility] METABOLIC INC INC PANEL BLOOD 20610 LEELEE MCKOY COUNT 9 [facility] COMPLETE INC INC AUTO&AUTO DIFRNTL WBC URNLS DIP 28812 LEELEE MCKOY 9 [facility] STICK/TAB INC INC LET REAGENT AUTO MICROSCOP Y URNLS DIP 28276 LEELEE MCKOY 9 [facility] STICK/TAB INC INC LET REAGENT AUTO MICROSCOP Y BLOOD 08372 LEELEE MCKOY COUNT 9 [facility] COMPLETE INC INC AUTO&AUTO DIFRNTL WBC RADEX ABD 61725 KIRK GARCIA 9 MEDICAL ZOË P AQT ABD IMAGING W/S/E/D ASSOCIATE VIEWS [address] [place] [address] LEELEE MCKOY INFUSION 9 [facility] THERAPY/P INC INC ROPHYLAXI S /DX 1ST TO 1 [place] [address] LEELEE LEELEE AMYLASE 9 [facility] INC INC COMPREHEN 94336 LEELEE MCKOY SIVE 9 [facility] [place] [address] LEELEE MCKOY LIPASE 9 [facility] INC INC URNLS DIP 75117 ABEL ROMAN, 9 DON R DON R STICK/TAB LET RGNT NON-AUTO W/O MICRSCP COMPREHEN 88502 LEELEE MCKOY SIVE 9 [facility] [place] [address] LEELEE MONTEMAYORON AMYLASE 9 [place] [address] [place] IZAIAH, ABDOMEN 9 MEDICAL SOLANGE W/O IMAGING CONTRAST ASSOCIATE MATERIAL S CT PELVIS 15091 LEELEE LEELEE W/O 9 [facility] CONTRAST INC INC MATERIAL 3D 21872 LEELEE MCKOY RENDERING 9 [facility] INC INC W/INTERP& POSTPROC DIFF WORK STATION BLOOD 41079 LEELEE MCKOY COUNT 9 [facility] COMPLETE INC INC AUTO&AUTO DIFRNTL WBC URNLS DIP 33318 LEELEE MCKOY 9 [facility] STICK/TAB INC INC [place] [address] LEELEE MCKOY LIPASE 9 [facility] INC INC RADEX 12308 [place] FAIZAN, ANKLE 8 MEDICAL ZOË P COMPLETE IMAGING MINIMUM 3 ASSOCIATE VIEWS S RADEX 90672 [place] FAIZAN, FOOT 8 MEDICAL ZOË P COMPLETE IMAGING MINIMUM 3 ASSOCIATE VIEWS S RADEX 39894 LEELEE MCKOY SPINE 8 [facility] LUMBOSACR INC INC AL MINIMUM [address] PELVIS 39398 [place] IZAIAH, W/O & 8 MEDICAL SOLANGE W/CONTRAS IMAGING T ASSOCIATE MATERIAL S URNLS DIP 89592 LEELEE MCKOY 8 [facility] STICK/TAB INC INC LET REAGENT AUTO MICROSCOP Y BLOOD 90100 LEELEE MCKOY COUNT 8 [facility] COMPLETE INC INC AUTO&AUTO DIFRNTL WBC BASIC 27186 LEELEE MCKOY METABOLIC 8 [facility] PANEL INC INC CALCIUM TOTAL RADIOLOGI 45573 LEELEE LEELEE C 8 [facility] EXAMINATI INC INC ON PELVIS 1/2 VIEWS 3D 39700 LEELEE LEELEE RENDERING 8 [facility] INC INC W/INTERP& [place] [address] GAVIN IZAIAH, ABDOMEN 8 MEDICAL SOLANGE W/O & IMAGING W/CONTRAS ASSOCIATE T S MATERIAL URNLS DIP 87444 ABEL ROMAN 8 DON R DON R STICK/TAB LET RGNT NON-AUTO W/O MICRSCP IAADI 75552 LEELEE MCKOY INFFLUENZ 8 [facility] A A VIRUS INC INC IAADI 48565 LEELEE MCKOY INFLUENZA 8 [facility] B VIRUS INC INC IAADIADOO 95960 ABEL ROMAN 8 DON R DON R STREPTOCO CCUS GROUP A URNLS DIP 00474 LEELEE MCKOY 8 [facility] STICK/TAB INC [place] [address] LEELEE MCKOY THER 8 [facility] PROPH/DX INC INC 1ST >1 HR COMPREHEN 64074 LEELEE MCKOY SIVE 8 [facility] METABOLIC INC INC PANEL BLOOD 15357 LEELEE MCKOY COUNT 8 [facility] COMPLETE INC INC AUTO&AUTO DIFRNTL WBC IAADIADOO 14673 ABEL ROMAN 8 DON R DON R STREPTOCO CCUS GROUP A Encounters Encounter Start End Date Code Location Performer Type Date OFFICE 63870 TWIN CUEVAS 7 7 PHYSICIAN T VISIT PRACTICE 25 L MINUTES OFFICE 54014 LEELEE CUEVAS 7 7 [facility] T [facility]ISIT 5 INC MINUTES [facility]PAT[facility] T [facility] OUTPATIEN INC T EMERGENCY 64890 LEELEE 7 7 [facility] DEPARTMEN INC T VISIT LOW/MODER SEVERITY EMERGENCY 25070 KRISTINA MATHUR 7 7 PHYSICIAN [facility] T VISIT HIGH/URGE NT SEVERITY OFFICE 38765 LEELEE OUTPATIEN 7 7 [facility] T VISIT 5 INC MINUTES [facility] - 7 7 [facility] OUTPATIEN INC T OFFICE 05648 [facility] LUCEROTAURUS OUTPATIEN 7 7 T VISIT 15 MINUTES OFFICE 21731 JAZMINETAURUS [place] OUTPATIEN 7 7 T VISIT 15 MINUTES OFFICE 86374 [facility] LUCEROTAURUS OUTPATIEN 7 7 T VISIT 25 MINUTES EMERGENCY 68348 KRISTINA BARRERA 7 7 PHYSICIAN [facility] T VISIT MODERATE SEVERITY OFFICE 13555 JAZMINETAURUS LUCEROTAURUS YENMILLIEN 7 7 T VISIT 15 MINUTES EMERGENCY 44641 KRISTINA MATHUR 7 7 PHYSICIAN [facility] T VISIT HIGH/URGE NT SEVERITY OFFICE 33343 [facility] MARTINS OUTPATIEN 6 6 T VISIT 15 MINUTES OFFICE 72581 [facility] MARTINS OUTPATIEN 6 6 SADIQ SADIQ T VISIT 15 MINUTES OFFICE 46640 [facility] MARTINS OUTPATIEN 6 6 SADIQ SADIQ T VISIT 15 MINUTES OFFICE 96928 [facility] MARTINS OUTPATIEN 6 6 SADIQ SADIQ T NEW 30 MINUTES OFFICE 45916 [facility] LA OUTPATIEN 6 6 PHYSICIAN DOMI T VISIT S GROUP 15 MINUTES [facility] - 6 6 [facility] OUTPATIEN INC T [facility] - 6 6 [facility] OUTPATIEN INC T OFFICE 24026 [facility] NADYA OUTPATIEN 6 6 PHYSICIAN T VISIT GROUP 25 MINUTES INITIAL 65407 [facility] LA PREVENTIV 6 6 PHYSICIAN DOMI E S GROUP MEDICINE NEW PATIENT 40-64YRS [facility] LEELEE - 6 6 [facility] OUTPATIEN INC T OFFICE 53117 IVONE MARY PAYNE OUTPATIEN 6 6 MD MARY, T VISIT PSC 25 MINUTES OFFICE 86844 [facility] KEVAN OUTPATIEN 6 6 PHYSICIAN LACEY T VISIT S GROUP 15 MINUTES OFFICE 85217 [facility] KEVAN OUTPATIEN 6 6 PHYSICIAN LACEY T VISIT S GROUP 15 MINUTES [facility] - 6 6 [facility] OUTPATIEN INC T [facility] - 6 6 [facility] OUTPATIEN INC T OFFICE 09735 [facility] KEVAN OUTPATIEN 6 6 PHYSICIAN LACEY T VISIT S GROUP 15 MINUTES OFFICE [address] [facility] OUTPATIEN 6 6 PHYSICIAN T VISIT S GROUP 15 MINUTES OFFICE 68394 [facility] EKVAN OUTPATIEN 6 6 PHYSICIAN LACEY T VISIT S GROUP 10 MINUTES [facility]OSP[facility] - 6 6 [facility]PAT[facility] T [facility] 40516 [facility] ORTHOPEDI JEFF T VISIT C 15 ASSOCIAT MINUTES [facility] 6 6 N OUTPATIEN COMMUNTIY T HOSPITA OFFICE [address] [facility] [address] OUTPATIEN 6 6 PHYSICIAN T VISIT S GROUP 15 MINUTES [facility] - 6 6 [facility] OFF[facility] 03077 [place] WAESPE OUTPATIEN 6 6 ORTHOPEDI JEFF T NEW 45 C MINUTES ASSOCIAT OFFICE 40329 [facility] KEVAN OUTPATIEN 6 6 PHYSICIAN LACEY T VISIT S GROUP 15 MINUTES OFFICE 00158 [facility] [address] [address] OUTPATIEN 6 6 PHYSICIAN T VISIT S GROUP 10 MINUTES OFFICE 94549 [facility] KEVAN OUTPATIEN 5 5 PHYSICIAN LACEY T VISIT S GROUP 15 MINUTES [facility] - 5 5 [facility] OUTPATIEN INC T EMERGENCY 43476 LEELEE 5 5 [facility] DEPARTMEN INC T VISIT LOW/MODER SEVERITY EMERGENCY 84223 KRISTINA KEVAN 5 5 PHYSICIAN LACEY DEPARTMEN S, PLLC T VISIT HIGH/URGE NT SEVERITY OFFICE 18959 [facility] KEVAN OUTPATIEN 5 5 PHYSICIAN LACEY T VISIT S GROUP 10 MINUTES OFFICE 10673 [facility] KEVAN OUTPATIEN 5 5 PHYSICIAN LACEY T VISIT S GROUP 15 MINUTES OFFICE 73910 [facility] PETTEY OUTPATIEN 5 5 PHYSICIAN JAM T VISIT S GROUP 15 MINUTES OFFICE 17906 [facility] KEVAN OUTPATIEN 5 5 PHYSICIAN LACEY T VISIT S GROUP 10 MINUTES [facility]OSPITAL [facility] - 5 5 [facility] OUTPATIEN INC T OFFICE 96659 [facility] KEVAN OUTPATIEN 5 5 PHYSICIAN LACEY T VISIT S GROUP 10 MINUTES EMERGENCY 14118 KRISTINA KEVAN 5 5 PHYSICIAN [facility] MODERATE SEVERITY [facility] - 5 5 [facility] OUTPATIEN INC T OFFICE 39685 LEELEE OUTPATIEN 5 5 [facility] T VISIT INC 10 MINUTES OFFICE 43620 IVONE PAYNE OUTPATIEN 5 5 MD MARY, T NEW 30 PSC MINUTES OFFICE 84857 [facility] KEVAN OUTPATIEN 5 5 PHYSICIAN LACEY T VISIT S GROUP 10 MINUTES OFFICE 55039 SNEHAL EVERETT ANT OUTPATIEN 5 5 MEDICAL T VISIT SERV 25 FOUNDATIO MINUTES N OFFICE 68558 [facility] KEVAN OUTPATIEN 5 5 PHYSICIAN LACEY T VISIT S GROUP 15 MINUTES OFFICE 17578 [facility] KEVAN OUTPATIEN 5 5 PHYSICIAN LACEY T VISIT S GROUP 15 MINUTES EMERGENCY 97257 KRISTINA KEVAN 5 5 PHYSICIAN LACEY DEPARTMEN S, PLLC T VISIT MODERATE SEVERITY OFFICE 74096 [facility] KEVAN OUTPATIEN 5 5 PHYSICIAN LACEY T VISIT S GROUP 10 MINUTES OFFICE 93446 [facility] KEVAN OUTPATIEN 5 5 PHYSICIAN LACEY T VISIT S GROUP 10 MINUTES OFFICE 46101 A C YAMIL GABY OUTPATIEN 5 5 RUIZ GARRETT T VISIT PSC 15 MINUTES OFFICE 25196 [facility] FRYMAN OUTPATIEN 5 5 PHYSICIAN EUG T VISIT S GROUP 15 MINUTES OFFICE 71167 [facility] KEVAN OUTPATIEN 5 5 PHYSICIAN LACEY T VISIT S GROUP 25 MINUTES OFFICE 00242 A C KILPELA OUTPATIEN 5 5 RUIZ GARRETT JEA T VISIT PSC 15 MINUTES OFFICE 69051 A C KILPELA OUTPATIEN 5 5 RUIZ GARRETT JEZuri T VISIT PSC 15 MINUTES OFFICE 33131 [facility] KEVAN OUTPATIEN 5 5 PHYSICIAN LACEY T VISIT S GROUP 15 MINUTES OFFICE 51448 [facility] KEVAN OUTPATIEN 5 5 PHYSICIAN LACEY T VISIT S GROUP 15 MINUTES OFFICE 20665 [facility] KEVAN OUTPATIEN 5 5 PHYSICIAN LACEY T VISIT S GROUP 10 MINUTES OFFICE 06875 [facility] FRYMAN OUTPATIEN 5 5 PHYSICIAN EUG T VISIT S GROUP 15 MINUTES OFFICE 95953 [facility] FRYMAN OUTPATIEN 4 4 PHYSICIAN EUG T VISIT S GROUP 15 MINUTES OFFICE 01516 [facility] KEVAN OUTPATIEN 4 4 PHYSICIAN LACEY T VISIT S GROUP 10 MINUTES EMERGENCY 43507 LEELEE 4 4 [facility] DEPARTMEN INC T VISIT LOW/MODER SEVERITY [facility] - 4 4 [facility] OUTPATIEN INC T EMERGENCY 84519 [facility] 4 4 [facility] EMERGENCY T VISIT PHYS HIGH/URGE NT SEVERITY OFFICE 63597 [facility] KEVAN OUTPATIEN 4 4 PHYSICIAN LACEY T VISIT S GROUP 15 MINUTES OFFICE 60921 [facility] KEVAN OUTPATIEN 4 4 PHYSICIAN LACEY T VISIT S GROUP 15 MINUTES [facility] - 4 4 [facility] T OFFICE 74166 [facility] OUTPATIEN 4 4 PHYSICIAN LACEY T VISIT S GROUP 10 MINUTES [facility] 4 4 [facility] T [facility] 4 4 [facility] OUTPATIEN INC T OFFICE 33839 [facility] K[facility]AN OUTPATIEN 4 4 PHYSICIAN LACEY T VISIT S GROUP 15 MINUTES EMERGENCY 86241 LOBO MATHUR 4 4 [facility] EMERGENC[facility] T VISIT PHYS MODERATE SEVERITY OFFICE 84399 A C KILPELA OUTPATIEN 4 4 RUIZ GARRETT JEZuri T VISIT PSC 15 MINUTES OFFICE 59478 A C KILPELA OUTPATIEN 4 4 RUIZ GARRETT JEA T VISIT PSC 15 MINUTES EMERGENCY 22499 [facility] 4 4 [facility] EMERGENCY T VISIT PHYS HIGH/URGE NT SEVERITY OFFICE 61101 A C KILPELA OUTPATIEN 4 4 RUIZ BOUDREAUX T VISIT PSC 15 MINUTES OFFICE 57608 A C FIELD AMB OUTPATIEN 4 4 RUIZ GARRETT T VISIT PSC 15 MINUTES OFFICE 13470 [facility] KEVAN OUTPATIEN 4 4 PHYSICIAN LACEY T VISIT S GROUP 15 MINUTES OFFICE 23628 MELCHOR A MELCHOR A OUTPATIEN 4 4 T VISIT 15 MINUTES OFFICE 34223 KILPELA KILPELA OUTPATIEN 4 4 JEA JEA T VISIT 15 MINUTES [facility] - [facility] 4 [facility] OUTPATIEN INC T OFFICE 43082 FIELD AMB FIELD AMB OUTPATIEN 4 4 T VISIT 15 MINUTES EMERGENCY 43906 KEVAN ALTAMIRANOEY 4 4 LACEY LACEY DEPARTMEN T VISIT MODERATE SEVERITY OFFICE 79272 FIELD AMB FIELD AMB OUTPATIEN 4 4 T VISIT 15 MINUTES OFFICE 88288 KILPELA KILPELA OUTPATIEN 4 4 JEA JEA T VISIT 15 MINUTES [facility] [place] [facility] 4 [facility], ATTN: DENE OFFICE 83600 FIELD AMB FIELD AMB OUTPATIEN 4 4 T VISIT 15 MINUTES OFFICE 64304 FIELD AMB FIELD AMB OUTPATIEN 4 4 T VISIT 15 MINUTES OFFICE 89401 FIELD AMB FIELD AMB OUTPATIEN 4 4 T VISIT 15 MINUTES OFFICE 22873 CHELO CHELO OUTPATIEN 4 4 CONRAD CONRAD T VISIT 15 MINUTES OFFICE 97599 FIELD AMB FIELD AMB OUTPATIEN 4 4 T VISIT 15 MINUTES OFFICE 77986 KILPELA KILPELA OUTPATIEN 4 4 JEA JEA T VISIT 15 MINUTES OFFICE 07658 FIELD AMB FIELD AMB OUTPATIEN 4 4 T VISIT 15 MINUTES OFFICE 95461 KILPELA KILPELA OUTPATIEN 4 4 JEA JEA T VISIT 15 MINUTES OFFICE 57904 MARTHA THOMAS SEFERINO OUTPATIEN 4 4 T VISIT 15 MINUTES OFFICE 55788 KILPELA KILPELA OUTPATIEN 4 4 JEA JEA T VISIT 15 MINUTES OFFICE 97660 ROJAS STEVE ROJAS STEVE OUTPATIEN 4 4 T VISIT 15 MINUTES OFFICE 72147 FIELD AMB FIELD AMB OUTPATIEN 4 4 T VISIT 15 MINUTES OFFICE 38333 MARTHA THOMAS SEFERINO OUTPATIEN 3 3 T VISIT 15 MINUTES OFFICE 55251 SANTANA CAROURN CONSULTAT 3 3 MEJIA MEJIA ION NEW/ESTAB PATIENT 40 MIN OFFICE 70049 ROJAS STEVE ROJAS STEVE OUTPATIEN 3 3 T VISIT 25 MINUTES OFFICE 31161 FIELD AMB FIELD AMB OUTPATIEN 3 3 T VISIT 15 MINUTES [facility] - [facility] 3 [facility] OUTPATIEN INC T OFFICE 97669 FIELD AMB FIELD AMB OUTPATIEN 3 3 T VISIT 15 MINUTES OFFICE 94230 KILPELA KILPELA OUTPATIEN 3 3 JEA JEA T VISIT 15 MINUTES OFFICE 67839 WALDEMAR WALDEMAR OUTPATIEN 3 3 DOMI DOMI T VISIT 25 MINUTES OFFICE 44070 FIELD AMB FIELD AMB OUTPATIEN 3 3 T VISIT 15 MINUTES OFFICE 81901 A Timi MENENDEZ OUTPATIEN 3 3 RUIZ BOUDREAUX T VISIT PSC 15 MINUTES OFFICE 53713 Zuri Keating OUTPATIEN 3 3 RUIZ GARRETT T VISIT PSC 15 MINUTES [facility] T OFFICE 54548 ROJAS STEVE ROJAS STEVE CONSULTAT 3 3 ION NEW/ESTAB PATIENT 60 MIN OFFICE 87376 ABEL ROMAN OUTPATIEN 3 3 DON DON T VISIT 15 MINUTES OFFICE 60376 ABEL ROMAN OUTPATIEN 3 3 DON DON T VISIT 15 MINUTES OFFICE 21556 FAMILY OUTPATIEN 3 3 CARE T VISIT ASSOCIATE 15 S MINUTES OFFICE 39658 ROMAN ROMAN OUTPATIEN 3 3 DON DON T VISIT 15 MINUTES OFFICE 79498 ROMAN ROMAN OUTPATIEN 3 3 DON DON T VISIT 15 MINUTES OFFICE 73072 ROMAN ORMAN OUTPATIEN 3 3 DON DON T VISIT 25 MINUTES OFFICE 28160 ROMAN ROMAN OUTPATIEN 3 3 DON DON T VISIT 15 MINUTES Emergency THERESA Headley (ER) 3 00:20 3 00:48 [facility] EMERGENCY 10593 [place] 3 3 [facility] T VISIT LOW/MODER SEVERITY [facility] - 3 3 [facility] T EMERGENCY 76254 PREETI [facility] 3 [facility] SE[facility]ITY OFF[facility] 76156 PETTEY PETTEY OUTPATIEN 3 3 JAM JAM T VISIT 15 MINUTES [facility] 3 3 [facility] T OFFICE 09658 PETTEY PETTEY OUTPATIEN 3 3 JAM JAM T NEW 30 MINUTES [facility] T OFFICE 60284 ROMAN ROMAN OUTPATIEN 3 3 DON DON T VISIT 15 MINUTES OFFICE 69181 ROMAN ROMAN OUTPATIEN 3 3 DON DON T VISIT 15 MINUTES OFFICE 90461 ROMAN ROMAN OUTPATIEN 3 3 DON DON T VISIT 15 MINUTES OFFICE 83578 ROMAN ROMAN OUTPATIEN 3 3 DON DON T VISIT 15 MINUTES EMERGENCY 46796 JOSE MARIA DE LA ROSA 2 2 [facility]IGH/URGE NT SEVERITY [facility] - 2 2 [facility] T EMERGENCY 80640 [facility] 2 2 [facility] DEPARTMEN INC T VISIT MODERATE SEVERITY OFFICE 50375 ROMAN ROMAN OUTPATIEN 2 2 DON DON T VISIT 15 MINUTES OFFICE 19199 ROMAN ROMAN OUTPATIEN 2 2 DON DON T VISIT 15 MINUTES OFFICE 50944 ROAMN ROMAN OUTPATIEN 2 2 DON DON T VISIT 15 MINUTES OFFICE 80196 ROMAN ROMAN OUTPATIEN 2 2 DON DON T VISIT 15 MINUTES OFFICE 94270 ROMAN ROMAN OUTPATIEN 2 2 DON DON T VISIT 15 MINUTES [facility] 2 2 [facility] T EMERGENCY 05623 [facility] 2 2 [facility] DEPARTMEN INC T VISIT LOW/MODER SEVERITY EMERGENCY 56553 JOSE MARIA LINDQUIST 2 2 EMERGENCY DEPARTMEN SERVICES T VISIT MODERATE SEVERITY OFFICE 58009 ROMAN ROMAN OUTPATIEN 2 2 DON DON T VISIT 15 MINUTES EMERGENCY 83713 JOSE MARIA DE LA ROSA 2 2 EMERGENCY [facility] SERVICES T VISIT HIGH/URGE NT SEVERITY EMERGENCY 39842 KEVAN MATHUR 2 2 [facility] DEPARTMEN T VISIT MODERATE SEVERITY [facility] - 2 2 [facility] T EMERGENCY 38030 [facility] 2 2 [facility] DEPARTMEN INC T VISIT LOW/MODER SEVERITY OFFICE 62218 ROMAN ROMAN OUTPATIEN 2 2 DON DON T VISIT 15 MINUTES OFFICE 81201 ROMAN ROMAN OUTPATIEN 2 2 DON DON T VISIT 15 MINUTES EMERGENCY 55647 PREETI [place] 2 2 III JESSEE III [facility] T VISIT HIGH/URGE NT SEVERITY EMERGENCY 06871 [place] [address] [facility] T VISIT LOW/MODER SEVERITY [facility] - 2 2 [facility] 61012 ROMAN ROMAN OUTPATIEN 2 2 DON DON T VISIT 15 MINUTES OFFICE 04571 ROMAN ROMAN OUTPATIEN 2 2 DON DON T VISIT 15 MINUTES OFFICE 31598 ROMAN ROMAN OUTPATIEN 2 2 DON DON T VISIT 15 MINUTES EMERGENCY 69737 [place] [address] [facility] T VISIT MODERATE SEVERITY [facility] - 2 2 [facility] 87428 PREETI [place] 2 2 III JESSEE III [facility] T VISIT HIGH/URGE NT SEVERITY OFFICE 09384 ROMAN ROMAN OUTPATIEN 2 2 DON DON T VISIT 15 MINUTES [facility] - [address] [facility] T EMERGENCY 10373 JOSE MARIA MATHUR 2 2 EMERGENCY [facility] SERVICES T VISIT HIGH/URGE NT SEVERITY OFFICE 41851 WALDEMAR WALDEMAR CONSULTAT 2 2 DOMI DOMI ION NEW/ESTAB PATIENT 60 MIN [facility] 2 2 [facility] 92423 ROMAN ROMAN OUTPATIEN 2 2 DON DON T VISIT 25 MINUTES OFFICE 58086 ROM[facility] OUTPATIEN 2 2 DON DON T VISIT 15 MINUTES [facility] T EMERGENCY 74435 [facility] 2 2 [facility] DEPART[facility] INC T VISIT MODERATE SEVERITY EMERGENCY 26326 JOSE MARIA MATHUR 2 2 EMERGENCY [facility] DEPARTMEN SERVICES T VISIT HIGH/URGE NT SEVERITY EMERGENCY 74594 [facility] 2 2 DEPARTMEN T VISIT MODERATE SEVERITY EMERGENCY 42751 [facility] 2 2 [facility] T VISIT MODERATE SEVERITY [facility] 2 [facility] T OFFICE 55154 ROMAN ROMAN OUTPATIEN 2 2 DON DON T VISIT 15 MINUTES [facility] 2 2 [facility] T EMERGENCY 13821 JOSE MARIA MATHUR 2 2 [facility] HIGH/URGE NT SEVERITY EMERGENCY [address]14 [facility] [address] [facility]ATE SEVERITY EMERGENCY 74581 [facility] [address] [facility] SE[facility]ITY [facility] 2 2 [facility] T EMERGENCY 29178 PREETI [place] 2 2 III [place] III [facility] DEPARTMEN T VISIT HIGH/URGE NT SEVERITY OFFICE 54307 ROM[facility] ROMAN OUTPATIEN 2 2 DON DON T VISIT 15 MINUTES OFFICE 91505 ROMAN ROMAN OUTPATIEN 2 2 DON DON T VISIT 25 MINUTES EMERGENCY 50770 JOSE MARIA MATHUR 2 2 EMERGENCY [facility] DEPARTMEN SERVICES T VISIT HIGH/URGE NT SEVERITY EMERGENCY 97533 [facility] [address] [facility] SE[facility]ITY [facility] T OFFICE 84335 ROMAN ROMAN OUTPATIEN 2 2 DON DON T VISIT 15 MINUTES EMERGENCY 34127 PREETI [place] 2 2 III [place] III [facility]IS[facility] HIGH/URGE NT SEVERITY [facility] T EMERGENCY 47930 [facility] 2 2 [facility] DEPART[facility] INC T VISIT MODERATE SEVERITY OFFICE 55072 [facility] OUTPATIEN 2 2 DON DON T VISIT 15 MINUTES OFFICE 29239 ROMAN ROMAN OUTPATIEN 2 2 DON DON T VISIT 15 MINUTES OFFICE 01129 [facility] ROMAN OUTPATIEN 2 2 DON DON T VISIT 15 MINUTES OFFICE 65015 ROMAN ROMAN OUTPATIEN 2 2 DON DON T VISIT 15 MINUTES OFFICE 03258 ROM[facility] ROMAN OUTPATIEN 2 2 DON DON T VISIT 15 MINUTES EMERGENCY 39689 JOSE MARIA MATHUR 2 2 EMERGENCY [facility] T VISIT HIGH/URGE NT SEVERITY OFFICE 72884 [facility] OUTPATIEN 2 2 DON DON T VISIT 15 MINUTES OFFICE 26361 [facility] ROM[facility] OUTPATIEN 1 1 DON DON T VISIT 15 MINUTES [facility] 1 1 [facility] T EMERGENCY 70716 [facility] 1 1 [facility] DEPARTMEN INC T VISIT LOW/MODER SEVERITY EMERGENCY 28814 KEVAN MATHUR 1 1 [facility] T VISIT HIGH/URGE NT SEVERITY OFFICE 92271 [facility] OUTPATIEN 1 1 DON DON T VISIT 15 MINUTES OFFICE 76481 [facility] OUTPATIEN 1 1 DON DON T VISIT 15 MINUTES OFFICE 86679 [facility] ROMAN OUTPATIEN 1 1 DON DON T VISIT 15 MINUTES EMERGENCY 20350 JOSE MARIA HEADLEY 1 1 EMERGENCY III [place] DEPARTMEN SERVICES T VISIT HIGH/URGE NT SEVERITY [facility] T EMERGENCY 97677 [facility] 1 1 [facility] T VISIT MODERATE SEVERITY EMERGENCY 11919 JOSE MARIA MORTON 1 1 EMERGENCY DEPARTMEN SERVICES T VISIT HIGH/URGE NT SEVERITY OFFICE 92246 ROMAN ROMAN OUTPATIEN 1 1 DON DON T VISIT 15 MINUTES EMERGENCY 26961 [facility] 1 1 [facility] T VISIT MODERATE SEVERITY [facility] T EMERGENCY 80923 JOSE MARIA MATHUR DEPT 1 1 EMERGENCY [facility] VISIT SERVICES HIGH SEVERITY& THREAT FUNJ OFFICE 79932 ROMAN ROMAN OUTPATIEN 1 1 DON DON T VISIT 15 MINUTES OFFICE 74684 ROMAN ROMAN OUTPATIEN 1 1 DON DON T VISIT 25 MINUTES OFFICE 11874 ROMAN ROMAN OUTPATIEN 1 1 DON DON T VISIT 15 MINUTES EMERGENCY 87940 [facility] 1 1 [facility] T VISIT LOW/MODER SEVERITY [facility] 1 [facility] T OFFICE 00428 ROMAN ROMAN OUTPATIEN 1 1 DON DON T VISIT 15 MINUTES [facility] 1 [facility] T EMERGENCY 76136 JOSE MARIA HEADLEY DEPT 1 1 EMERGENCY III [place] VISIT SERVICES HIGH SEVERITY& THREAT FUNCJ EMERGENCY 51405 [facility] 1 1 [facility] INC T VISIT LOW/MODER SEVERITY OFFICE 10429 ROMAN ROMAN OUTPATIEN 1 1 DON DON T VISIT 15 MINUTES EMERGENCY 72303 JOSE MARIA MATHUR 1 1 EMERGENCY [facility] DEPARTMEN SERVICES T VISIT HIGH/URGE NT SEVERITY EMERGENCY 75250 [facility] 1 1 [facility] T VISIT LOW/MODER SEVERITY [facility] 1 [facility] T EMERGENCY 12851 JOSE MARIA MATHUR 1 1 EMERGENCY [facility] DEPARTMEN SERVICES T VISIT HIGH/URGE NT SEVERITY [facility] 1 [facility] T OFFICE 21028 ROM[facility] ROMAN OUTPATIEN 1 1 DON DON T VISIT 15 MINUTES [facility] 1 [facility] T OFFICE 91735 ROMAN ROMAN OUTPATIEN 1 1 DON DON T VISIT 15 MINUTES [facility] 1 [facility] T OFFICE 87192 ROMAN ROMAN OUTPATIEN 1 1 DON DON T VISIT 15 MINUTES OFFICE 73746 ROMAN ROMAN OUTPATIEN 0 0 DON DON T VISIT 15 MINUTES EMERGENCY 26390 [facility] 0 0 [facility] INC T VISIT LOW/MODER SEVERITY EMERGENCY 72201 JOSE MARIA HEADLEY 0 0 EMERGENCY III [facility] DEPARTMEN SERVICES T VISIT MODERATE SEVERITY [facility] 0 [facility] T EMERGENCY 00356 [facility] 0 0 [facility] INC T VISIT MODERATE SEVERITY [facility] T EMERGENCY 90776 JOSE MARIA LINDSEY DEPT 0 0 EMERGENCY [facility] VISIT SERVICES HIGH SEVERITY& THREAT FUNCJ OFFICE 78991 ABEL MIHENS OUTPATIEN 0 0 DON DON T VISIT 15 MINUTES EMERGENCY 92719 JOSE MARIA LINDSEY DEPT 0 0 EMERGENCY SH[facility] VISIT SERVICES HIGH SEVERITY& THREAT FUNCJ EMERGENCY 38567 [facility] 0 0 [facility] INC T VISIT HIGH/URGE NT SEVERITY [facility] 0 [facility] T EMERGENCY 85551 JOSE MARIA LINDSEY DEPT 0 0 EMERGENCY SHAN VISIT SERVICES HIGH SEVERITY& THREAT FUNJ OFFICE 85465 DIOP DIOP OUTPATIEN 0 0 BAO BAO T VISIT 25 MINUTES [facility] T EMERGENCY 72150 JOSE MARIA CHAPMAN 0 0 EMERGENCY J[facility] DEPARTMEN SERVICES T VISIT MODERATE SEVERITY EMERGENCY 06646 [facility] 0 0 [facility] INC T VISIT LIMITED/M INOR PROB OFFICE 33816 [facility] ROMAN OUTPATIEN 0 0 DON DON T VISIT 15 MINUTES OFFICE 45570 [facility] ROMAN OUTPATIEN 0 0 DON DON T VISIT 15 MINUTES [facility] T EMERGENCY 34578 [facility] 0 0 [facility] DE[facility] INC T VISIT LIMITED/M INOR PROB EMERGENCY 87115 [facility] 0 0 [facility] DE[facility] INC T VISIT LIMITED/M INOR PROB EMERGENCY 97284 JOSE MARIA MORTON 0 0 EMERGENCY DEPARTMEN SERVICES T VISIT HIGH/URGE NT SEVERITY [facility] - 0 0 [facility] T EMERGENCY 85522 JOSE MARIA HEAD[place] 0 0 EMERGENCY III [facility] SERVICES T VISIT HIGH/URGE NT SEVERITY EMERGENCY 43666 [facility] 0 0 [facility] DEPARTMEN INC T VISIT LIMITED/M INOR PROB EMERGENCY 74581 [place] 0 0 [facility] INC T VISIT LOW/MODER SEVERITY EMERGENCY 55825 JOSE MARIA HEAD[place] 0 0 EMERGENCY III [facility] SERVICES T VISIT HIGH/URGE NT SEVERITY [facility] 0 0 [facility] T EMERGENCY 21428 JOSE MARIA MATHUR 0 0 EMERGENCY [facility] SERVICES T VISIT HIGH/URGE NT SEVERITY [facility] 0 0 [facility] INC T EMERGENCY [address] [facility] [address] [facility] LOW/MODER SEVERITY OFFICE 86164 [place] [facility] 0 0 MEDICAL ION SERV NEW/ESTAB FOUNDATIO PATIENT 40 MIN [facility] 0 0 [facility]EN [facility] T EMERGENCY 31502 JOSE MARIA MATHUR 0 0 [facility] HIGH/URGE NT SEVERITY EMERGENCY 58098 [place] 0 0 [facility] DE[facility]MEN INC T VISIT LIMITED/M INOR PROB EMERGENCY 07666 [facility] 0 0 [facility] INC T VISIT LIMITED/M INOR PROB EMERGENCY 29443 JOSE MARIA MATHUR, 0 0 EMERGENCY [facility] SERVICES T VISIT HIGH/URGE ASSOCIATE NT S SEVERITY [facility] 0 0 [facility] INC T OFFICE 70585 FIDELINA ROMANS, OUTPATIEN 0 0 DON R DON R T VISIT 15 MINUTES [facility] 0 [facility] T EMERGENCY 26960 [facility] 0 0 [facility] INC T VISIT HIGH/URGE NT SEVERITY OFFICE 42240 ABEL ROMAN, OUTPATIEN 0 0 DON R DON R T VISIT 25 MINUTES [facility] 0 [facility] T EMERGENCY 20691 JOSE MARIA MATHUR, 0 0 EMERGENCY [facility] SERVICES T VISIT HIGH/URGE ASSOCIATE NT S SEVERITY EMERGENCY 55786 [facility] 0 0 [facility] DE[facility] INC T VISIT LIMITED/M INOR PROB EMERGENCY 11069 [facility] 0 0 [facility] DE[facility] INC T VISIT LOW/MODER SEVERITY EMERGENCY 47152 JOSE MARIA MATHUR, 0 0 EMERGENCY [facility] SERVICES T VISIT MODERATE ASSOCIATE SEVERITY S [facility] T OFFICE 37658 ROMANABEL POWELL, OUTMILLIEN 0 0 DON R DON R T VISIT 15 MINUTES [facility] 0 [facility] T EMERGENCY 22574 [facility] 0 0 [facility] DEPART[facility] INC T VISIT MODERATE SEVERITY EMERGENCY 00395 JOSE MARIA IRELAND, 0 0 EMERGENCY [facility] EM[facility]GENC[facility] DEPARTMENT SERVICES M T VISIT HIGH/URGE ASSOCIATE NT S SEVERITY [facility] 0 [facility] T EMERGENCY 98794 [facility] 0 0 [facility] DEPART[facility] INC T VISIT MODERATE SEVERITY EMERGENCY 08710 JOSE MARIA MATHUR, 0 0 EMERGENCY [facility] SERVICES T VISIT HIGH/URGE ASSOCIATE NT S SEVERITY [facility] 0 0 [facility] T EMERGENCY 24619 JOSE MARIA MATHUR, 0 0 EMERGENCY [facility] SERVICES T VISIT HIGH/URGE ASSOCIATE NT S SEVERITY OFFICE 48562 ABEL ROMAN OUTPATIEN 9 9 DON R DON R T VISIT 15 MINUTES EMERGENCY 60850 [facility] 9 9 [facility] INC T VISIT LIMITED/M INOR PROB [facility] - 9 9 [facility] T [facility] - 9 9 [facility] 62094 JOSE MARIA MATHUR, 9 9 EMERGENCY [facility] SERVICES T VISIT HIGH/URGE ASSOCIATE NT S SEVERITY EMERGENCY 12568 [facility] 9 9 [facility]ATE SE[facility]ITY [facility] 9 9 [facility] T EMERGENCY 03464 JOSE MARIA MATHUR, 9 9 EMERGENCY [facility] SERVICES T VISIT HIGH/URGE ASSOCIATE NT S SEVERITY EMERGENCY 30577 [place] 9 9 [facility] DE[facility] INC T VISIT LIMITED/M INOR PROB [facility] - 9 9 [facility] T EMERGENCY 12524 JOSE MARIA MATHUR, 9 9 EMERGENCY [facility] SERVICES T VISIT HIGH/URGE ASSOCIATE NT S SEVERITY EMERGENCY 91272 [facility] 9 9 [facility] DE[facility] INC T VISIT LIMITED/M INOR PROB OFFICE 62289 ABEL ROMAN OUTPATIEN 9 9 DON R DON R T VISIT 15 MINUTES EMERGENCY 51640 JOSE MARIA MATHUR, 9 9 EMERGENCY [facility] SERVICES T VISIT MODERATE ASSOCIATE SEVERITY S [facility] 9 9 [facility] T EMERGENCY 31430 [facility] 9 9 [facility] DEPARTMEN INC T VISIT LOW/MODER SEVERITY EMERGENCY 72906 JOSE MARIA MATHUR, 9 9 EMERGENCY [facility] SERVICES T VISIT HIGH/URGE ASSOCIATE NT S SEVERITY [facility] 9 9 [facility] T EMERGENCY 03233 [place] 9 9 [facility] LOW/MODER SEVERITY EMERGENCY 12534 JOSE MARIA MATHUR, 9 9 EMERGENCY [facility] SERVICES T VISIT HIGH/URGE ASSOCIATE NT S SEVERITY EMERGENCY 56015 [place] 9 9 [facility] LIMITED[facility]M INOR PROB [facility] 9 9 [facility] T [facility] 9 9 [facility] T OFFICE 06412 ABEL ROMAN OUTPATIEN 9 9 DON R DON R T VISIT 15 MINUTES OFFICE 58988 CHIKIS DIOP, WAGNER 9 9 DESI WEEKS LAURA NEW/ESTAB PATIENT 80 MIN OFFICE 50122 ABEL ROMAN OUTPATIEN 9 9 DON R DON R T VISIT 15 MINUTES EMERGENCY 69158 [facility] 9 9 [facility] INC T VISIT LOW/MODER SEVERITY [facility] - 9 9 [facility] T EMERGENCY 87586 JOSE MARIA CASTANEDA, 9 9 EMERGENCY [facility] EM[facility]GENC[facility] DEPARTMENT SERVICES T VISIT HIGH/URGE ASSOCIATE NT S SEVERITY EMERGENCY 40687 [facility] 9 9 [facility] V[facility]/M INOR PROB EMERGENCY 08660 JOSE MARIA CASTANEDA, DEPT 9 9 EMERGENCY [facility] VISIT SERVICES HIGH SEVERITY& ASSOCIATE THREAT S FUN [facility] - 9 9 [facility] T EMERGENCY 84014 [facility] 9 9 [facility] DE[facility] INC T VISIT LOW/MODER SEVERITY EMERGENCY 66446 JOSE MARIA MATHUR, 9 9 EMERGENCY [facility] DEPARTMEN SERVICES T VISIT HIGH/URGE ASSOCIATE NT S SEVERITY [facility] 9 9 [facility] T EMERGENCY 73364 [facility] 9 9 [facility] DE[facility] INC T VISIT LOW/MODER SEVERITY EMERGENCY 25203 [facility] 9 9 [facility] INC T VISIT LIMITED/M INOR PROB [facility] - 9 9 [facility] T EMERGENCY 93204 JOSE MARIA MATHUR, 9 9 EMERGENCY [facility] DEPARTMEN SERVICES T VISIT HIGH/URGE ASSOCIATE NT S SEVERITY [facility] - 9 9 [facility] T EMERGENCY 09432 [facility] 9 9 [facility] INC T VISIT LIMITED/M INOR PROB EMERGENCY 23198 JOSE MARIA MATHUR, 9 9 [facility]IT HIGH/URGE ASSOCIATE NT S SEVERITY [facility] 9 9 [facility] T EMERGENCY 56221 [facility] 9 9 [facility] INC T VISIT LIMITED/M INOR PROB EMERGENCY 27278 JOSE MARIA MATHUR, 9 9 [facility] VISIT MODERATE ASSOCIATE SEVERITY S [facility] - 9 9 [facility] T EMERGENCY 96902 JOSE MARIA BOOTH, DEPT 9 9 EMERGENCY [place] VISIT SERVICES HIGH SEVERITY& ASSOCIATE THREAT S FUNJ EMERGENCY 78643 [facility] 9 9 [facility] DEPART[facility] INC T VISIT LIMITED/M INOR PROB [facility] - 9 9 [facility] T EMERGENCY 45514 JOSE MARIA MATHUR, 9 9 EMERGENCY [facility] SERVICES T VISIT MODERATE ASSOCIATE SEVERITY S EMERGENCY 93044 [facility] 9 9 [facility] DEPART[facility] INC T VISIT LOW/MODER SEVERITY EMERGENCY 96337 [facility] 9 9 [facility] INC T VISIT LIMITED/M INOR PROB [facility] - 9 9 [facility] T EMERGENCY 33050 JOSE MARIA MATHUR, 9 9 EMERGENCY [facility] SERVICES T VISIT MODERATE ASSOCIATE SEVERITY S EMERGENCY 80297 JOSE MARIA MATHUR, 9 9 EMERGENCY [facility] SERVICES T VISIT MODERATE ASSOCIATE SEVERITY S EMERGENCY 94019 [facility] 9 9 [facility] DE[facility] INC T VISIT LOW/MODER SEVERITY [facility] - 9 9 [facility] T [facility] - 9 9 [facility] T EMERGENCY 86483 JOSE MARIA MATHUR, 9 9 EMERGENCY [facility] SERVICES T VISIT HIGH/URGE ASSOCIATE NT S SEVERITY EMERGENCY 62297 [facility] 9 9 [facility] INC T VISIT LOW/MODER SEVERITY EMERGENCY 27198 JOSE MARIA MATHUR, 9 9 EMERGENCY [facility] SERVICES T VISIT HIGH/URGE ASSOCIATE NT S SEVERITY EMERGENCY 81026 [facility] 9 9 [facility] INC T VISIT MODERATE SEVERITY [facility] - 9 9 [facility] - 9 9 [facility] T EMERGENCY 09870 JOSE MARIA MATHUR, 9 9 EMERGENCY [facility] SERVICES T VISIT HIGH/URGE ASSOCIATE NT S SEVERITY EMERGENCY 24980 [facility] 9 9 [facility] DEPART[facility] INC T VISIT LIMITED/M INOR PROB EMERGENCY 15140 JOSE MARIA COLEMAN, 9 9 EMERGENCY [facility] SERVICES T VISIT MODERATE ASSOCIATE SEVERITY S EMERGENCY 20971 [facility] 9 9 [facility] DEPARTMEN INC T VISIT LIMITED/M INOR PROB [facility] - 9 9 [facility] INC T EMERGENCY 87400 [facility] 9 9 [facility] INC T VISIT LOW/MODER SEVERITY [facility] - 9 9 [facility] INC T EMERGENCY 48348 JOSE MARIA MATHUR, 9 9 EMERGENCY [facility] SERVICES T VISIT MODERATE ASSOCIATE SEVERITY S EMERGENCY 36312 JOSE MARIA MATHUR, 9 9 EMERGENCY [facility] SERVICES T VISIT MODERATE ASSOCIATE SEVERITY S EMERGENCY 19124 [facility] 9 9 [facility] INC T VISIT LIMITED/M INOR PROB [facility] - 9 9 [facility] T [facility] 9 9 [facility] INC T EMERGENCY 15326 [facility] 9 9 [facility]/M INOR PROB EMERGENCY 53146 JOSE MARIA MATHUR, 9 9 EMERGENCY [facility] SERVICES T VISIT HIGH/URGE ASSOCIATE NT S SEVERITY EMERGENCY 71559 [facility] 9 9 [facility] DEPARTMEN INC T VISIT MODERATE SEVERITY EMERGENCY 24511 JOSE MARIA MATHUR, 9 9 EMERGENCY [facility] SERVICES T VISIT HIGH/URGE ASSOCIATE NT S SEVERITY [facility] - 9 9 [facility] T EMERGENCY 76617 JOSE MARIA MATHUR, 9 9 EMERGENCY [facility] SERVICES T VISIT HIGH/URGE ASSOCIATE NT S SEVERITY [facility] 9 9 [facility] T EMERGENCY 34768 [facility] 9 9 [facility] INC T VISIT MODERATE SEVERITY EMERGENCY 78721 JOSE MARIA CASTANEDA, 9 9 EMERGENCY [facility] EMERGENCY DEPARTMENT SERVICES T VISIT MODERATE ASSOCIATE SEVERITY S EMERGENCY 21758 [facility] 9 9 [facility] DE[facility] INC T VISIT LIMITED/M INOR PROB [facility] - 9 9 [facility] INC T EMERGENCY 47966 JOSE MARIA MATHUR, DEPT 9 9 EMERGENCY [facility] VISIT SERVICES HIGH SEVERITY& ASSOCIATE THREAT S FUN [facility] - 9 9 [facility] T EMERGENCY 25412 [place] 9 9 [facility] INC T VISIT MODERATE SEVERITY OFFICE 34177 ABEL ROMAN OUTPATIEN 9 9 DON R DON R T VISIT 15 MINUTES EMERGENCY 44408 LUCHO MATHUR, 9 9 [facility] T VISIT ON LOW/MODER SEVERITY [facility] - 9 9 [facility] INC T OFFICE 54888 ABEL ROMAN OUTPATIEN 9 9 DON R DON R T VISIT 15 MINUTES [facility] - 9 9 [facility] INC T EMERGENCY 89303 LUCHO MATHUR, 9 9 [facility] T VISIT ON MODERATE SEVERITY EMERGENCY 77351 [place] 9 9 [facility] INC T VISIT LOW/MODER SEVERITY EMERGENCY 56643 LUCHO MATHUR, 9 9 [facility] T VISIT ON MODERATE SEVERITY EMERGENCY 36870 [facility] 9 9 [facility] DE[facility] INC T VISIT LOW/MODER SEVERITY [facility] - 9 9 [facility] INC T EMERGENCY 17239 LUCHO CASTANEDA, 9 9 [facility] T VISIT ON MODERATE SEVERITY EMERGENCY 43368 [facility] 9 9 [facility] DE[facility] INC T VISIT LIMITED/M INOR PROB [facility] - 9 9 [facility] INC T OFFICE 32757 ABEL ROMAN OUTPATIEN 9 9 DON R DON R T VISIT 15 MINUTES [facility] - 9 9 [facility] INC T EMERGENCY 22736 LUCHO MATHUR, DEPT 9 9 [facility] VISIT CORPORATI HIGH ON SEVERITY& THREAT FUN EMERGENCY 00596 [facility] 9 9 [facility] DEPARTMEN INC T VISIT HIGH/URGE NT SEVERITY [facility] - 8 8 [facility] OUT[facility] T EMERGENCY [id number] [facility] 8 8 [facility] T VISIT LOW/MODER SEVERITY EMERGENCY 14856 LUCHO MATHUR, 8 8 [facility] V[facility] MODERATE SEVERITY OFFICE 53342 ABEL ROMAN OUTPATIEN 8 8 DON R DON R T VISIT 15 MINUTES EMERGENCY 75415 [facility] 8 8 [facility] T VISIT HIGH/URGE NT SEVERITY [facility] 8 [facility] T EMERGENCY 07855 [facility] 8 8 [facility] T VISIT LIMITED/M INOR PROB [facility] - 8 8 [facility] T EMERGENCY 70157 [facility] 8 8 [facility] T VISIT LIMITED/M INOR PROB OFFICE 58424 ABEL ROMAN OUTPATIEN 8 8 DON R DON R T VISIT 15 MINUTES [facility] - 8 8 [facility] 37850 [facility] 8 8 [facility] T VISIT LOW/MODER SEVERITY OFFICE 58929 [facility] OUTPATIEN 8 8 DON R DON R T VISIT 15 MINUTES OFFICE [id number] AB[facility] ROMAN OUTPATIEN 8 8 DON R DON R T VISIT 15 MINUTES OFFICE [id number] ABEL ROMAN OUTPATIEN 8 8 DON R DON R T VISIT 15 MINUTES [facility] - 8 8 [facility] 79260 [facility]ST[facility], 8 8 [facility] T VISIT PROF SERV LOW[facility]MODER SEVERITY [facility] - 8 8 [facility] [address] [facility] [address] [facility] T VISIT LIMITED/M INOR PROB [facility] - 8 8 [facility] 95507 [facility] 8 8 [facility] T VISIT LOW/MODER SEVERITY OFFICE 40462 AB[facility] ROMAN OUTPATIEN 8 8 DON R DON R T VISIT 15 MINUTES [facility] - 8 8 [facility] EM[facility] 18253 [facility] [address] [facility] T VISIT MODERATE SEVERITY OFFICE 43499 AB[facility] ROMAN OUTPATIEN 8 8 DON R DON R T VISIT 15 MINUTES EMERGENCY 84551 [facility] CAST[place], 8 8 [facility] T VISIT PROF SERV LOW/MODER SEVERITY EMERGENCY 29992 [facility] [address] [facility] T [facility]ISIT LIMITED/M INOR PROB [facility] - 8 8 [facility] 27061 ABEL ROMAN OUTPATIEN 8 8 DON R DON R T VISIT 25 MINUTES [facility] 8 8 [facility] 20941 [facility] 8 8 [facility] T VISIT [facility]OW/MODER SEVERITY
--- OUTSIDE RECORDS SUMMARY | 2017-06-11 01:14 | External Medical Summary Rpt ---
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 OL 31 11 11 0 PH DO TA AR N RT MA R RA CY TE OF 50 CY MG NT HI TA AN B A HY 00 05 05 5 [address] 17 -0 -[address] 39 EP ti OC 22 4- 4 00 SI 51 HE ve HL 08 20 20 DE NS OR 38 11 11 OT 0 PH DO HI AR N AZ MA R ID CY E 25 OF MG CY NT TA HI B AN A ME 00 05 05 5 [address] Ac TO 09 -0 -[address] 39 EP ti NE 30 4- 4 SI 53 HE ve OL 73 [...] .0 ST 42 EP ti 24 5- 00 SI 08 HE ve 80 [...] 42 11 11 TA 8 PH DO UT AR N N- MA R CA CY [...] 6- 6- 00 SI 60 HE ve NE 02 20 20 DE NS ED 20 [...] 42 11 11 TA 8 PH DO UT AR N N- MA R CA CY [...] NT TA HI B AN A 59 02 03 2 15 30 [...] ST 88 EP ti RA 80 8 8- 00 SI 40 HE ve MA 03 20 20 DE NS TE 26 11 11 0 PH DO 50 AR N MA R MG CY TA OF BL ET CY NT HI AN A ME 00 11 03 4 [address] Ac TO 09 -2 -[address] 13 EP ti NE 30 4- 8- 00 SI 63 HE ve OL 73 20 20 DE NS OL 31 10 11 0 PH DO TA AR N RT MA R RA CY TE OF 50 CY MG NT HI TA AN B A 00 03 03 0 12 30 [...] 42 11 11 TA 8 PH DO UT AR N N- MA R CA CY [...] ST 59 EP ti LB 32 8- 8 00 SI 53 HE ve -A 54 20 20 DE NS CE 42 11 11 TA 8 PH DO UT AR N N- MA R CA CY FF OF 50 -3 CY 25 NT -4 HI 0 AN A HY 00 03 03 0 [address] 17 -0 -[address] 47 EP ti OC 22 1 SI 85 HE ve HL 08 20 20 DE NS OR 38 11 11 OT 0 PH DO HI AR N AZ MA R ID CY E 25 OF MG CY NT TA HI B AN A ME 00 11 03 4 [address] Ac TO 09 -2 -[address] 13 EP ti NE 30 4 SI 63 HE ve OL 73 20 20 DE NS OL 31 10 11 0 PH DO TA AR N RT MA R RA CY TE OF 50 CY MG NT HI TA AN B A CE 00 02 02 0 [address] Ac PH 09 -2 -[address] 42 EP ti AL 33 6 6 SI 41 HE ve EX 14 20 20 DE NS IN 70 11 11 5 PH DO 50 AR N 0 MA R MG CY CA OF PS UL CY E NT HI AN A 59 02 02 2 [address] Ac 76 -2 -[address] 42 EP ti 24 5- 5 SI 08 HE ve 80 20 20 DE NS 20 11 11 5 PH DO AR N MA R CY OF CY NT HI AN A RA 00 02 02 2 [address] Ac NI 78 -2 -[address] 42 EP ti TI 11 5- 5 SI 09 HE ve DI 88 [...] ST 14 IN ti ON 10 7- 7- 00 SI 31 EY ve ID 33 20 20 DE AZ 40 11 11 UT OL 1 PH CH E AR AE 50 MA L 0 CY S MG OF TA BL CY ET NT HI AN A NE 00 02 02 0 28 7 EA [...] -2 -[address] 13 EP ti NE 30 4- 5- 00 SI 63 HE [...] P NT HI AN A TO 13 10 [...] OF CY NT HI AN A 59 12 [...] P NT HI AN A RA 53 12 12 0 [address] Ac NI 74 -2 -[address] 54 EP ti TI 60 4- 4 00 SI 21 HE ve DI 25 [...] -2 -[address] 13 EP ti NE 30 4- 4- 00 SI 63 HE ve OL 73 20 20 DE NS OL 31 10 10 0 PH DO TA AR N RT MA R RA CY TE OF 50 CY MG NT HI TA AN B A AM 00 12 12 0 21 [...] 4- 4- 00 SI 73 HE ve NE 02 20 20 DE NS ED 20 [...] BL ET CY NT HI AN A NE 00 12 12 0 24 6 EA [...] -2 -[address] 13 EP ti NE 30 4- 4- 00 SI 63 HE ve OL 73 20 20 DE NS OL 31 10 10 0 PH DO TA AR N RT MA R RA CY TE OF 50 CY MG NT HI TA AN B A HY 00 10 11 4 30 30 EA [address] 55 -2 -[address] 70 ON ti OX 50 6- 4- 00 SI 07 NE ve YZ 32 20 20 DE LL IN 30 10 10 E 4 PH PATTI PA AR HN M MA 25 CY MG OF CA CY P NT HI AN A 59 08 11 3 15 [...] OF ET CY NT HI AN A NE 00 11 11 0 20 5 EA [...] -2 -[address] 73 EP ti NE 30 5- 4- 00 SI 22 HE [...] 4- 4- 00 SI 79 HE ve NE 02 20 20 DE NS ED 20 [...] -2 -[address] 73 EP ti NE 30 5- 2- 00 SI 22 HE [...] OF ET CY NT HI AN A NE 00 08 08 0 16 4 EA [...] 0- 0- 00 SI 89 HE ve NE 50 20 20 DE NS AM 91 [...] NT ET HI AN A RA 53 08 08 3 [address] Ac NI 74 -2 -[address] 84 EP ti TI 60 5- 5- 00 SI 80 HE ve DI 25 20 20 DE NS NE 30 10 10 5 PH DO 15 AR N 0 MA R MG CY TA OF BL ET CY NT HI AN A PEREZ 53 [...] BL HI ET AN A ME 00 05 08 5 [address] Ac TO 09 -2 -[address] 73 EP ti NE 30 5- 3- 00 SI 22 HE [...] 20 20 DE CE 42 10 10 UT TA 8 PH CH UT AR AE N- MA L CA CY [...] -2 -[address] 73 EP ti NE 30 5- 5- 00 SI 22 HE [...] P HI AN A NO 00 01 07 [...] CA CY P NT HI AN A IB 53 07 07 [...] -2 -[address] 73 EP ti NE 30 5- 6- 00 SI 22 HE [...] .0 ST 94 HR ti AL 33 1- - 00 SI 08 MA ve EX 14 20 20 DE N IN 70 10 10 II 5 PH I 50 AR WI 0 MA LL MG CY IA M CA OF E PS UL CY E NT HI AN A NE 00 06 06 0 12 3 EA 17 WE Ac OM 78 -1 -[address] 94 HR ti ET 11 1- 1- 00 SI 09 MA ve PARKER 83 20 [...] -2 -[address] 73 EP ti NE 30 5- 5- 00 SI 22 HE [...] 20 RT 2 AC 90 10 10 UT 1 PH CH SO AR AE D [...] 20 20 DE IN 70 10 10 UT 5 PH CH 50 AR AE 0 MA L MG CY S CA OF PS UL CY E NT HI AN A ME 00 12 04 4 [address] Ac TO 09 -2 -[address] 69 EP ti NE 30 2- 4- 00 SI 71 HE [...] UL CY E NT HI AN A NE 00 04 04 0 16 3 EA [...] ST 98 ON ti ME 12 5- 1 00 SI 84 NE ve TH 32 [...] CY BL NT ET HI AN A NE 00 03 03 0 12 3 EA [...] -2 -[address] 69 EP ti NE 30 2- 2- 00 SI 71 HE ve OL 73 20 20 DE NS OL 31 09 10 0 PH DO TA AR N RT MA R RA CY TE OF 50 CY MG NT HI TA AN B A NE 00 03 03 12 3 RI 82 [...] CY CA NT P HI AN A NE 00 03 03 0 28 7 EA [...] 20 RT 3 YC 66 10 10 UT IN 8 PH CH AR AE 25 MA L 0 CY S MG #5 TA 91 BL ET AC 00 01 01 00 60 30 EA 15 OC Ac ET 55 -1 -[address] 98 ON ti AZ 50 5- 8- 00 SI 82 NE ve OL 51 20 20 DE LL AM 30 10 10 ID 2 PH PATTI E AR HN ER MA CY 50 0 OF MG CY NT CA HI P AN A NO 00 08 01 04 90 30 [...] PS NT UL HI E AN A SE 16 11 01 02 [...] -2 -[address] 69 EP ti NE 30 2- 8- 00 SI 71 HE [...] ET NT HI AN A HY 00 09 01 00 [address] [...] HI AN A ME 00 12 12 00 [address] Ac TO 09 -2 -[address] 69 EP ti NE 30 2- 1- 00 SI 71 HE [...] CY ET NT HI AN A 00 10 12 02 [address] Ac 18 -2 -3 .0 L- 42 EP ti 50 4- 1- 00 MA 70 HE ve 61 20 20 RT 4 NS 30 09 09 1 PH DO AR N MA R CY #5 91 SE 16 11 12 01 15 30 [...] DE N ZA 80 09 09 II NE 1 PH I IN AR WI E [...] OF ET CY NT HI AN A NA 00 11 12 00 [address] Ac NE 09 -1 -[address] 15 EP [...] NT BL HI ET AN A 00 10 12 01 60 [...] -1 -[address] 53 EP ti NE 30 7- 3- 00 SI 68 HE [...] CY NT CA HI P AN A CI 00 11 11 00 14 7 EA 15 GA Ac NE 14 -1 -[address] 07 IN ti OF 39 0- 9- 00 SI 01 EY ve LO 92 20 20 DE XA 80 09 09 UT CI 1 PH CH N AR AE HC MA L L CY S 50 0 OF MG CY NT TA HI B AN A CE 00 11 11 00 21 7 RI 80 GA Ac PH 14 -0 -1 .0 TE 72 IN ti AL 39 4- 9- 00 67 EY ve EX 89 20 20 AI IN 70 09 09 D UT 1 PH CH 50 AR AE 0 M L MG #3 S 93 CA 8 PS UL E 00 11 11 00 8. 2 RI 80 GA Ac 40 -0 -1 00 TE 72 IN ti 60 4- 9- 0 65 EY ve 35 20 20 AI 70 09 09 D UT 5 PH CH AR AE M L #3 S 93 8 AC 00 08 11 02 60 30 [...] -1 -[address] 53 EP ti NE 30 7- 5- 00 SI 68 HE [...] HI P AN A AC 00 08 10 01 [...] HI P AN A ME 00 07 09 02 [address] Ac TO 09 -1 -[address] 53 EP ti NE 30 7- 4- 00 SI 68 HE ve OL 73 20 20 DE NS OL 31 09 09 0 PH DO TA AR N RT MA R RA CY TE OF 50 CY NT MG HI AN TA A B HY 00 07 09 02 [address] 55 -1 -[address] 53 EP ti OX 50 7- 4- 00 SI 69 HE ve YZ 32 20 20 DE NS IN 30 09 09 E 4 PH DO PA AR N M MA R 25 CY MG OF CY CA NT P HI AN A SE 16 07 09 01 [...] HI ET AN A IN 00 08 09 00 [...] HI E AN A NO 00 08 09 00 [...] HI P AN A AC 00 08 09 00 [...] HI P AN A ME 00 07 08 01 [address] Ac TO 09 -1 -[address] 53 EP ti NE 30 7- 7- 00 SI 68 HE ve OL 73 20 20 DE NS OL 31 09 09 0 PH DO TA AR N RT MA R RA CY TE OF 50 CY NT MG HI AN TA A B HY 00 07 08 01 [address] 55 -1 -[address] 53 EP ti OX 50 7- 7- 00 SI 69 HE ve YZ 32 20 20 DE NS IN 30 09 E 4 PH DO PA AR [...] 90 09 09 TA 5 PH DO UT AR N N- MA R CA CY FF OF 50 CY -3 NT 25 HI -4 AN 0 A 64 02 08 04 60 30 [...] 20 20 DE CE 90 09 09 UT TA 5 PH CH UT AR AE N- MA L CA CY S FF OF 50 CY -3 NT 25 HI -4 AN 0 A BU 00 07 07 00 12 3 EA 13 GA Ac TA 59 -2 -[address] 60 IN ti LB 13 3- 0- 00 SI 05 EY ve -A 36 20 20 DE CE 90 09 09 UT TA 5 PH CH UT AR AE N- MA L CA CY S FF OF 50 CY -3 NT 25 HI -4 AN 0 A DI 00 07 07 00 14 7 WA 70 GA Ac CL 78 -1 -3 .0 L- 28 IN ti OF 11 1- 0- 00 MA 16 EY ve EN 78 20 20 RT 3 AC 90 09 09 UT 1 PH CH SO AR AE D MA L EC CY S 75 #5 91 MG TA B TO 60 06 07 01 [address] Ac PI 50 -0 -[address] 03 EP ti RA 52 5- 0- 00 SI 08 HE ve MA 76 20 20 DE NS TE 00 09 09 6 PH DO 25 AR N MA R MG CY TA OF BL CY ET NT HI AN A HY 00 07 07 00 60 [...] -1 -[address] 53 EP ti NE 30 7- 0- 00 SI 68 HE ve OL 73 20 20 DE NS OL 31 09 09 0 PH DO TA AR N RT MA R RA CY TE OF 50 CY NT MG HI AN TA A B BU 00 07 07 00 12 2 EA 13 GA Ac TA 60 -0 -[address] 41 IN ti LB 32 7- 6- 00 SI 30 EY ve -A 54 20 20 DE CE 42 09 09 UT TA 8 PH CH UT AR AE N- MA L CA CY [...] ET AN A 00 06 07 00 8. 2 WA 44 GA Ac 40 -2 -0 00 L- 77 IN ti 60 0- 2- 0 MA 57 EY ve 35 20 20 RT 4 70 09 09 UT 5 PH CH AR AE MA L CY S #5 91 00 06 07 00 10 5 WA [...] -0 -[address] 39 EP ti NE 30 9- 8- 00 SI 33 HE ve OL 73 20 20 DE NS OL 31 09 09 0 PH DO TA AR N RT MA R RA CY TE OF 50 CY NT MG HI AN TA A B HY 00 04 06 02 [address] 55 -0 -[address] 24 EP ti OX 50 7- 8- 00 SI 45 HE ve YZ 32 20 20 DE NS IN 30 09 09 E 4 PH DO PA AR N M MA R 25 CY MG OF CY CA NT P HI AN A TO 50 06 06 00 [address] Ac PA 45 -0 -[address] 03 EP ti MA 80 5- 8- 00 SI 08 HE ve X 63 20 20 DE NS 25 96 09 09 5 PH DO MG AR N MA R TA CY BL ET OF CY NT HI AN A 49 02 06 03 [address] Ac 88 -0 -[address] 39 EP ti 40 9- 8- 00 SI 32 HE ve 54 20 20 DE NS 41 09 09 0 PH DO AR N MA R CY OF CY NT HI AN A SE 65 04 06 [...] 20 20 DE CE 90 09 09 UT TA 5 PH CH UT AR AE N- MA L CA CY S FF OF 50 CY -3 NT 25 HI -4 AN 0 A ME 00 02 05 03 [address] Ac TO 09 -0 -[address] 39 EP ti NE 30 9- 1- 00 SI 33 HE [...] CY CA NT P HI AN A TO 50 12 05 04 [address] Ac PA 45 -2 -[address] 83 EP ti MA 80 6- 1- 00 SI 08 HE ve X 63 20 20 DE NS 25 96 08 09 5 PH DO MG AR N MA R TA CY BL ET OF CY NT HI AN A DI 00 04 05 [...] -0 -[address] 39 EP ti NE 30 9- 3- 00 SI 33 HE [...] CY OF CY NT HI AN A NE 00 04 04 00 12 3 EA 12 WI Ac OM 78 -0 -[address] 25 CK ti ET 11 8- 3- 00 SI 91 ER ve PARKER 83 20 20 DE ZI 01 09 09 JE NE 0 PH FF AR RE 25 MA Y CY MG OF TA CY BL NT ET HI AN A NE 00 03 04 01 12 3 EA [...] CY OF CY NT HI AN A NE 00 03 03 00 12 3 EA [...] NT HI AN A ME 00 02 03 01 [address] Ac TO 09 -0 -[address] 39 EP ti NE 30 9- 6- 00 SI 33 HE [...] CY OF CY NT HI AN A NE 00 02 03 00 [address] Ac OC 09 -2 -[address] 66 EP ti HL 39 7- 2- 00 SI 66 HE ve OR 65 20 20 DE NS PE 20 09 09 RA 1 PH DO ZI AR N NE MA R CY 10 OF MG CY NT TA HI B AN A HY 00 12 02 02 [...] -0 -[address] 39 EP ti NE 30 9- 6- 00 SI 33 HE ve OL 73 20 20 DE NS OL 31 09 09 0 PH DO TA AR N RT MA R RA CY TE OF 50 CY NT MG HI AN TA A B ME 00 02 02 00 21 6 EA 11 GA Ac TH 78 -1 -[address] 44 IN ti YL 15 2- 6- 00 SI 32 EY ve NE 02 20 20 DE ED 20 09 09 UT NI 7 PH CH SO AR AE LO MA L NE CY S 4 OF MG CY NT DO HI SE AN PK A 63 02 02 00 21 7 EA 11 GA Ac 30 -1 -[address] 44 IN ti 40 2- 6- 00 SI 31 EY ve 65 20 20 DE 70 09 09 UT 5 PH CH AR AE MA L CY S OF CY NT HI AN A 59 [...] CY NT HI AN A DI 00 01 01 00 [address] Ac CY 59 -2 -[address] 18 EP ti CL 10 1- 0- 00 SI 44 HE ve OM 79 20 20 DE NS IN 50 09 09 E 1 PH DO 20 AR N MA R MG CY TA OF BL CY ET NT HI AN A NE 00 01 01 00 [address] Ac OC 09 -1 -[address] 07 EP ti HL 39 3- 0- 00 SI 28 HE ve OR 65 20 20 DE NS PE 20 09 09 RA 1 PH DO ZI AR N NE MA R CY 10 OF MG CY NT TA HI B AN A HY 00 12 01 01 [...] NT P HI AN A ME 00 01 01 00 [address] Ac TO 09 -0 -[address] 03 EP ti NE 30 9- 00 SI 40 HE ve OL 73 20 20 DE NS OL 31 09 09 0 PH DO TA AR N RT MA R RA CY TE OF 50 CY NT MG HI AN TA A B 49 08 01 04 [address] Ac 88 -1 -[address] 03 EP ti 40 1 00 SI 47 HE ve 54 20 20 DE NS 41 08 09 0 PH DO AR N MA R CY OF CY NT HI AN A 00 12 01 [...] ST 83 EP ti OX 50 6- SI 09 HE ve YZ 32 20 20 DE NS IN 30 08 09 E 4 PH DO PA AR N M MA R 25 CY MG OF CY CA NT P HI AN A DI 00 12 00 14 7 EA 10 GA Ac CL 78 -2 -[address] 80 IN ti OF 11 SI 15 EY ve EN 78 20 20 DE AC 90 08 09 UT 1 PH CH SO AR AE D MA L EC CY S 75 OF CY MG NT HI TA AN B A 49 08 12 03 [address] Ac 88 -1 -[address] 03 EP ti 40 SI 47 HE ve 54 20 20 DE NS 41 08 08 0 PH DO AR N MA R CY OF CY NT HI AN A ME 00 08 12 04 [address] Ac TO 09 -1 -[address] 03 EP ti NE 30 8 SI 48 HE ve OL 73 20 20 DE NS OL 31 08 08 0 PH DO TA AR N RT MA R RA CY TE OF 50 CY NT MG HI AN TA A B CY 00 11 12 01 [address] Ac CL 59 -2 -[address] 43 EP ti OB 15 6 8 00 SI 44 HE ve EN 65 20 20 DE NS ZA 80 08 08 NE 1 PH DO IN AR N E [...] AR N MA R CY #5 91 NE 00 11 12 00 28 7 EA [...] 20 DE NS ZA 80 08 08 NE 1 PH DO IN AR N E [...] NT HI AN A ME 00 08 11 03 [address] Ac TO 09 -1 -[address] 03 EP ti NE 30 1- 0- 00 SI 48 HE ve OL 73 20 20 DE NS OL 31 08 08 0 PH DO TA AR N RT MA R RA CY TE OF 50 CY NT MG HI AN TA A B 00 11 11 00 [address] Ac 78 -0 -[address] 11 EP ti 11 3- 0- 00 SI 03 HE ve 26 20 20 DE NS 20 08 08 1 PH DO AR N MA R CY OF CY NT HI AN A NE 00 11 11 01 [address] Ac OC 09 -0 -[address] 15 EP ti HL 39 5- 0- 00 SI 28 HE ve OR 65 20 20 DE NS PE 20 08 08 RA 1 PH DO ZI AR N NE MA R CY 10 OF MG CY NT TA HI B AN A 00 01 11 10 [address] Ac 09 -0 -2 .0 L- 55 EP ti 37 8- 0- 00 MA 17 HE ve 17 20 20 RT 7 NS 75 08 08 6 PH DO AR N MA R CY #5 91 HY 00 11 11 00 60 20 [...] 90 08 08 TA 5 PH DO UT AR N N- MA R CA CY [...] 90 08 08 TA 5 PH DO UT AR N N- MA R CA CY FF OF 50 CY -3 NT 25 HI -4 AN 0 A NE 00 10 11 [address] Ac OM 78 -2 -[address] 93 EP ti ET 11 0- 7- 00 SI 32 HE ve PARKER 83 20 20 DE NS ZI 01 08 08 NE 0 PH DO AR N 25 MA R CY MG OF TA CY BL NT ET HI AN A NE 00 10 11 00 [address] Ac OC 09 -2 -[address] 02 EP ti HL 39 5- 7- 00 SI 05 HE ve OR 65 20 20 DE NS PE 20 08 08 RA 1 PH DO ZI AR N NE MA R CY 10 OF MG CY NT TA HI B AN A 00 01 10 09 [address] Ac 09 -0 -2 .0 L- 55 EP ti 37 8- 3- 00 MA 17 HE ve 17 20 20 RT 7 NS 75 08 08 6 PH DO AR N MA R CY #5 91 00 09 10 01 60 30 EA 99 No Ac 04 -0 -[address] 38 t ti 50 8- 3- 00 SI 58 Av ve 63 20 20 DE ai 96 08 08 la 5 PH bl AR e MA CY OF CY NT HI AN A 49 08 10 01 60 [...] -1 -[address] 03 t ti NE 30 1- 3- 00 SI 48 Av [...] CY CA NT P HI AN A AZ 00 09 10 00 6. 5 EA 99 No Ac IT 09 -2 -[address] 58 t ti HR 37 3- 9- 0 SI 96 Av ve OM 14 20 20 DE ai YC 61 08 08 la IN 8 PH bl AR e 25 MA 0 CY MG OF TA CY BL NT ET HI AN A CY 00 10 10 00 15 5 EA 99 No Ac CL 59 -0 -[address] 69 t ti OB 15 1 9 00 SI 09 Av ve EN 65 20 20 DE ai ZA 80 08 08 la NE 1 PH bl IN AR e E MA 10 CY MG OF CY TA NT BL HI ET AN A NE 00 09 09 00 12 3 EA 99 No Ac OM 78 -0 -[address] 38 t ti ET 11 8- 6- 00 SI 60 Av ve PARKER 83 20 [...] -1 -[address] 03 t ti NE 30 SI 48 Av ve OL 73 20 20 DE ai OL 31 08 08 la 0 PH bl TA AR e RT MA RA CY TE OF 50 CY NT MG HI AN TA A B 00 09 09 00 28 6 EA 99 No Ac 78 -0 -[address] 38 t ti 11 8 6 00 SI 61 Av ve 26 20 20 DE ai 20 08 08 la 1 PH bl AR e MA CY OF CY NT HI AN A 00 09 09 00 60 30 EA [...] AR N MA R CY #5 91 60 08 09 00 14 7 EA 99 No Ac 50 -2 -[address] 27 t ti 51 9- 00 SI 41 Av ve 30 20 20 DE ai 90 08 08 la 1 PH bl AR e MA CY OF CY NT HI AN A ME 00 08 09 00 21 6 EA 99 No Ac TH 78 -2 -[address] 27 t ti YL 15 9 SI 42 Av ve NE 02 20 20 DE ai ED 20 [...] .0 ST 03 t ti 40 1- 8- 00 SI 47 Av ve 54 20 [...] P HI AN A ME 00 08 08 00 30 30 EA 99 No Ac TO 09 -1 -[address] 03 t ti NE 30 1- 8- 00 SI 48 Av ve OL 73 20 20 DE ai OL 31 08 08 la 0 PH bl TA AR e RT MA RA CY TE OF 50 CY NT MG HI AN TA A B 00 01 08 07 [address] Ac 09 -0 -2 .0 L- 55 EP ti 37 8- 8- 00 MA 17 HE ve 17 20 20 RT 7 NS 75 08 08 6 PH DO AR N MA R CY #5 91 HY 00 07 08 00 60 20 [...] 08 08 la TA 5 PH bl UT AR e N- MA CA CY FF OF 50 CY -3 NT 25 HI -4 AN 0 A PEREZ 53 07 08 00 30 [...] TA HI BL AN ET A 00 07 08 00 24 6 [...] -0 -[address] 66 t ti NE 30 9- 7- 00 SI 10 Av ve OL 73 20 20 DE ai OL 31 08 08 la 0 PH bl TA AR e RT MA RA CY TE OF 50 CY NT MG HI AN TA A B 49 07 07 00 60 30 EA 98 No Ac 88 -0 -[address] 66 t ti 40 9- 7- 00 SI 11 Av ve 54 20 20 DE ai 40 08 08 la 2 PH bl AR e MA CY OF CY NT HI AN A HY 00 06 07 01 60 [...] 08 08 la TA 5 PH bl UT AR e N- MA CA CY FF OF 50 CY -3 NT 25 HI -4 AN 0 A 00 01 07 06 [address] Ac 09 -0 -1 .0 L- 55 EP ti 37 8- 7- 00 MA 17 HE ve 17 20 20 RT 7 NS 75 08 08 6 PH DO AR N MA R CY #5 91 00 01 07 05 15 30 WA 69 No Ac 09 -0 -0 .0 L- 55 t ti 37 8- 3- 00 MA 17 Av ve 17 20 20 RT 7 ai 75 08 08 la 6 PH bl AR e MA CY #5 91 NE 00 06 07 00 12 3 EA [...] HI AN A 00 01 07 05 30 30 WA 69 No Ac 78 -0 -0 .0 L- 55 t ti 11 8- 3- 00 MA 17 Av ve 22 20 20 RT 9 ai 31 08 08 la 0 PH bl AR e MA CY #5 91 BU 00 06 07 00 28 5 EA 98 No Ac TA 59 -1 -[address] 41 t ti LB 13 8- 3- 00 SI 59 Av ve -A 36 20 20 DE ai CE 90 08 08 la TA 5 PH bl UT AR e N- MA CA CY FF OF 50 CY -3 NT 25 HI -4 AN 0 A BU 00 05 06 03 28 5 EA 97 No Ac TA 59 -1 -[address] 98 t ti LB 13 4- 2- 00 SI 36 Av ve -A 36 20 20 DE ai CE 90 08 08 la TA 5 PH bl UT AR e N- MA CA CY FF OF 50 CY -3 NT 25 HI -4 AN 0 A BU 00 05 06 02 28 5 EA 97 No Ac TA 59 -1 -[address] 98 t ti LB 13 4- 5- 00 SI 36 Av ve -A 36 20 20 DE ai CE 90 08 08 la TA 5 PH bl UT AR e N- MA CA CY FF [...] 08 08 la TA 5 PH bl UT AR e N- MA CA CY FF OF 50 CY -3 NT 25 HI -4 AN 0 A 00 01 05 04 30 30 WA 69 No Ac 78 -0 -2 .0 L- 55 t ti 11 8- 2- 00 MA 17 Av ve 22 20 20 RT 9 ai 31 08 08 la 0 PH bl AR e MA CY #5 91 NE 00 04 05 00 28 7 WA [...] ET #5 91 00 01 04 03 15 [...] 3- 4- 00 MA 91 Av ve NE 59 20 20 RT 7 ai ED [...] #5 BL 91 ET 00 01 04 03 30 30 WA [...] CY #5 91 00 01 04 02 15 30 WA [...] 00 10 5 EA 97 No Ac UT 00 -0 -[address] 12 t ti FL 40 7- 7- 00 SI 17 Av ve U 80 20 20 DE ai 75 08 08 08 la 5 PH bl MG AR e MA CA CY PS UL OF E CY NT HI AN A 53 02 03 00 40 10 WA 69 No Ac 74 -0 -2 .0 L- 58 t ti 60 4- 6- 00 MA 86 Av ve 13 20 20 RT 4 ai 20 08 08 la 5 PH bl AR e MA CY #5 91 00 01 03 01 30 30 WA 69 No Ac 78 -0 -2 .0 L- 55 t ti 11 8- 6- 00 MA 17 Av ve 22 20 20 RT 9 ai 31 08 08 la 0 PH bl AR e MA CY #5 91 RA 00 01 03 60 30 WA 69 No Ac [...] 08 08 la TA 1 PH bl UT AR e N- MA CA CY FF #5 50 91 -3 25 -4 0 BU 00 01 03 01 30 7 WA 69 No Ac TA 14 -0 -2 .0 L- 55 t ti LB 31 8- 5- 00 MA 17 Av ve -A 78 20 20 RT 8 ai CE 70 08 08 la TA 1 PH bl UT AR e N- MA CA CY FF [...] BL 91 ET 00 01 03 00 30 30 WA [...] 08 08 la TA 1 PH bl UT AR e N- MA CA CY FF #5 50 91 -3 25 -4 0 Immunization Name Date Rout CVX Reac Dose Comm Prov Is Faci e tion ent ider Refu lity Give sed n IIV3 10-2 141 FIEL No FIEL 4-20 D D VACC 13 AMB INE SPLI T VIRU AMB S 0.5 ML DOSA GE IM USE Procedures Procedure [place] [id number] [facility]YLASE [facility] INC BLOOD 08138 LEELE[facility] MCK[facility] COUNT 7 [facility] COMPLETE INC INC AUTO&[place] [address] [facility]EE[facility] LIPASE 7 [facility] INC INC COMPREHEN [id number] LEELEE MCKOY SIVE 7 [facility] METABOLIC INC INC PANEL LIPID 34250 [facility] PANEL 7 [place] [address] [facility] THYROXINE 7 [facility] [employer] [facility] [facility] GENERAL 15668 LAB [facility] HEALTH 7 [facility] PANEL [facility] HOLD[facility] RADIOLOGI 83649 LEELEE MCKOY C 7 [facility] EXAMINATI INC INC ON KNEE 3 VIEWS SIMPLE 85280 KRISTINA BARRERA REPAIR 7 PHYSICIAN U SCALP/NEC S, PLLC K/AX/GUNNER T/TRUNK 2.5CM/< DUP-SCAN 01208 [facility] XTR VEINS 7 MEDICAL IMAGING [place] ASS L/LIMITED STUDY SMR PRIM 98857 [facility] SRC WET 6 PHYSICIAN PHYSICIAN MOUNT S GROUP S GROUP NFCT AGT PROF [facility] 80715 ALLERGY MAS MAR ALLG 6 PARTNERS IMMNTX X OF FERNANDEZ W/PRV CO ALLGIC XTRCS NJXS PROF [facility] 87693 ALLERGY MAS MAR ALLG 6 PARTNERS IMMNTX X OF [place] W/PR[place] [address] IVONE DUFF JEFF DX/THER 6 MD MARY, SBST PSC EPIDURAL/ SUBARACH LUMBAR/SA CRAL PROF [facility] 97081 ALLERGY MAS MAR ALLG 6 PARTNERS IMMNTX X OF F[place] W/[place] [address] LEELEE MCKOY TRANSVAGI 6 [facility] NAL INC INC URNLS DIP 38852 [facility] 6 PHYSICIAN STICK/TAB GROUP LET RGNT NON-AUTO W/O MICRSCP INJECTION [id number] [facility] [place] 6 PHYSICIAN PROMETHAZ GROUP INE HCL UP TO 50 MG THERAPEUT 78071 [facility] IC 6 PHYSICIAN PROPHYLAC GROUP TIC/[place] INJECTION SUBQ/[place] [address] ALLERGY MAS MAR ALLG 6 PARTNERS IMMNTX X OF FER[place]NDEZ W/PRV CO ALLGIC XTRCS NJXS BLOOD 87425 [facility] OCCULT 6 PHYSICIAN DOMI PEROXIDAS S GROUP E ACTV QUAL FECES 1-3 SPEC IADNA 49885 [facility] NEISSERIA 6 PHYSICIAN DOMI S GROUP GONORRHOE AE DIRECT PROBE TQ CULTURE 23326 [facility] CHLAMYDIA 6 PHYSICIAN DOMI ANY S GROUP SOURCE URINLS 03859 [facility] DIP 6 PHYSICIAN DOMI STICK/TAB S GROUP LET REAGNT NON-AUTO MICRSCPY URINE 52835 [facility] 6 PHYSICIAN PHYSICIAN TEST S GROUP S GROUP VISUAL [facility] G0463 [facility] OUTPATIEN 6 [facility] T CLIN INC INC VISIT ASSESS & MGMT PT PROF [facility] 37533 ALLERGY MAS MAR ALLG 6 PARTNERS IMMNTX X OF FERNANDEZ W/PRV CO ALLGIC XTRCS NJXS PREPJ& 43602 ALLERGY MAS MAR ALLERGEN 6 PARTNERS IMMUNOTHE OF JIM RAPNury CO 1/RAISIN WASHER ANTIGEN SCREENING G0202 GAVIN CARRASQUILLO 6 MEDICAL MAMMOGRAP IMAGING HY YOLANDA ASS INCL CAD WHEN PERFORMD COMPUTER- 32016 GAVIN CARRASQUILLO AIDED 6 MEDICAL DETECTION IMAGING ASS SCREENING MAMMOGRAP HY SPACR A4627 [facility] 6 EQUIPMENT OR W/WO INC MASK W/METRD DOSE INHAL 3D 99793 [facility] RENDERING 6 [facility] W/INTERP INC INC & POSTPROCE [place]PER[place] MRI 52343 [facility] SPINAL 6 [facility] CANAL INC INC LUMBAR W/O CONTRAST MATERIAL DRUG TST G0477 [facility] PRESUMP;C 6 [facility] PBL BEING INC INC READ DC OPT OBV ONLY APPL 92451 [facility] MODALITY 6 [facility] 1/> AREAS INC INC IONTOPHOR ESIS EA 15 MIN THERAPEUT 69735 [facility]CK[facility] IC PX 1/> 6 [facility] AREAS INC INC EACH 15 MIN EXERCISES APPLICATI 97102 [facility] ON 6 [facility] MODALITY INC INC 1/> AREAS HOT/COLD PACKS APPL 08556 [facility] MODALITY 6 [facility] 1/> AREAS INC INC ELEC STIMJ UNATTENDE D PHYSICAL 95385 [facility] THERAPY 6 [facility] EVALUATIO INC INC N RADEX 21738 [facility] [place] JUDY ELBOW 6 RADIOLOGY RHO COMPLETE MINIMUM 3 VIEWS RADEX 00605 [facility] [place] SCALF SADIQ ELBOW 6 RADIOLOGY COMPLETE MINIMUM 3 VIEWS RADEX 98001 [facility] [place] [facility] SADIQ FOREARM 2 6 RADIOLOGY VIEWS NERVE 76659 [facility]ARTIN CONDUCTIO 6 N N STUDIES NEUROLOGY 5-6 STUDIES NEEDLE 46961 [employer] [place] MARTIN EMG EA 6 N EXTREMTY NEUROLOGY W/PARASPI NL AREA COMPLETE [place] 12-05-201 67055 [facility] LIPASE 5 [place] [address] LEELEE LEELEE MAGNESIUM 5 [facility] INC INC COMPREHEN 12831 [facility] SIVE 5 [facility] METABOLIC INC INC PANEL BLOOD 04131 [facility] COUNT 5 [facility] COMPLETE INC INC AUTO&AUTO DIFRNTL WBC CULTURE 28044 [facility] BACTERIAL 5 [facility] INC INC QUANTTATI VE COLONY COUNT URINE URNLS DIP 44457 [facility] 5 [facility] STICK/TAB INC INC LET REAGENT AUTO MICROSCOP Y THERAPEUT 98095 LEELEE LEELEE IC PX 1/> 5 [facility] AREAS INC INC EACH 15 MIN EXERCISES APPLICATI 23500 LEELEE MCKOY ON 5 [facility] MODALITY INC INC 1/> AREAS HOT/COLD PACKS E-STIM G0283 LEELEE LEELEE 1/> AREAS 5 [facility] OTH THAN INC INC WND CARE PART TX PLAN E-STIM G0283 LEELEE MCKOY 1/> AREAS 5 [facility] OTH THAN INC INC WND CARE PART TX PLAN APPLICATI 16627 LEELEE LEELEE ON 5 [facility] MODALITY INC INC 1/> AREAS HOT/COLD PACKS THERAPEUT 33368 LEELEE LEELEE IC PX 1/> 5 [facility] AREAS INC INC EACH 15 MIN EXERCISES PHYSICAL 82720 LEELEE MCKOY THERAPY 5 [facility] EVALUATIO INC INC N SHOULDER L3650 [facility] 5 TECHNOLOG TECHNOLOG FIG 8 IES INC IES INC ABDUCT RESTRAINE R PREFAB RADEX 45965 [place] BEINE[place] ELBOW 5 MEDICAL ENEIDA COMPLETE IMAGING MINIMUM 3 ASS VIEWS INJ J0702 A Timi KILPELA BETAMETHA 5 RUIZ BOUDREAUX [place] PSC ACETATE & PHOSPHATE 3 MG INJECTION J1885 A Timi KILPELA 5 RUIZ BOUDREAUX KETOROLAC PSC TROMETHAM INE PER 15 MG THERAPEUT 86373 A Timi OLMSTEADLA IC 5 RUIZ GARRETT JEZuri PROPHYLAC PSC TIC/DX INJECTION SUBQ/IM URINLS 93682 A Timi MENENDEZ DIP 5 RUIZ GARRETT JEZuri STICK/TAB PSC LET REAGNT NON-AUTO MICRSCPY CULTURE 03001 [facility] QUEST BCT 5 DIAGNOSTI DIAGNOSTI ISOL&PRSM CS CS PTV ID ISOLATE EA URINE CULTURE 71545 QUEST QUEST BACTERIAL 5 DIAGNOSTI DIAGNOSTI CS CS QUANTTATI VE COLONY COUNT URINE THERAPEUT 17655 [facility] FRYMAN IC 5 PHYSICIAN EUG PROPHYLAC S GROUP TIC/DX INJECTION SUBQ/IM INJECTION J1885 [facility] FRYMAN 5 PHYSICIAN EUG KETOROLAC S GROUP TROMETHAM INE PER 15 MG IAADIADOO 75586 [facility] FRYMAN 4 PHYSICIAN EUG INFLUENZA S GROUP BLOOD 19371 LEELEE MCKOY COUNT 4 [facility] COMPLETE INC INC AUTO&AUTO DIFRNTL WBC COMPREHEN 96778 LEELEE MCKOY SIVE 4 [facility] METABOLIC INC INC PANEL APPL 16688 LEELEE MCKOY MODALITY 4 [facility] 1/> AREAS INC INC ELEC STIMJ UNATTENDE D APPL 41939 LEELEE MCKOY MODALITY 4 [facility] 1/> AREAS INC INC ULTRASOUN D EA 15 MIN APPLICATI 27009 LEELEE MCKOY ON 4 [facility] MODALITY INC INC 1/> AREAS HOT/COLD PACKS INJECTION J2550 [facility] KEVAN 4 PHYSICIAN LACEY PROMETHAZ S GROUP INE HCL UP TO 50 MG THERAPEUT 90207 [facility] KEVAN IC 4 PHYSICIAN LACEY PROPHYLAC S GROUP TIC/DX INJECTION SUBQ/IM APPL 58998 LEELEE MCKOY MODALITY 4 [facility] 1/> AREAS INC INC ELEC STIMJ UNATTENDE D APPLICATI 08961 LEELEE MCKOY ON 4 [facility] MODALITY INC INC 1/> AREAS HOT/COLD PACKS APPL 46950 LEELEE MCKOY MODALITY 4 [facility] 1/> AREAS INC INC ULTRASOUN D EA 15 MIN THERAPEUT 76857 LEELEE MCKOY IC PX 1/> 4 [facility] AREAS INC INC EACH 15 MIN EXERCISES THERAPEUT 34481 LEELEE MCKOY IC PX 1/> 4 [facility] AREAS INC INC EACH 15 MIN EXERCISES APPL 63987 LEELEE MCKOY MODALITY 4 [facility] 1/> AREAS INC INC ULTRASOUN D EA 15 MIN APPLICATI 65427 LEELEE MCKOY ON 4 [facility] MODALITY INC INC 1/> AREAS HOT/COLD PACKS APPL 35120 LEELEE MCKOY MODALITY 4 [facility] 1/> AREAS INC INC ELEC STIMJ UNATTENDE D APPL 83106 LEELEE MCKOY MODALITY 4 [facility] 1/> AREAS INC INC ELEC STIMJ UNATTENDE D APPLICATI 30970 LEELEE MCKOY ON 4 [facility] MODALITY INC INC 1/> AREAS HOT/COLD PACKS APPL 12278 LEELEE MCKOY MODALITY 4 [facility] 1/> AREAS INC INC ULTRASOUN D EA 15 MIN THERAPEUT 46068 LEELEE MCKOY IC PX 1/> 4 [facility] AREAS INC INC EACH 15 MIN EXERCISES THERAPEUT 02833 LEELEE MCKOY IC PX 1/> 4 [facility] AREAS INC INC EACH 15 MIN EXERCISES APPL 54985 LEELEE MCKOY MODALITY 4 [facility] 1/> AREAS INC INC ULTRASOUN D EA 15 MIN APPLICATI 84017 LEELEE MCKOY ON 4 [facility] MODALITY INC INC 1/> AREAS HOT/COLD PACKS APPL 58153 LEELEE MCKOY MODALITY 4 [facility] 1/> AREAS INC INC ELEC STIMJ UNATTENDE D APPL 13443 LEELEE MCKOY MODALITY 4 [facility] 1/> AREAS INC INC ELEC STIMJ UNATTENDE D APPLICATI 47135 LEELEE MCKOY ON 4 [facility] MODALITY INC INC 1/> AREAS HOT/COLD PACKS APPL 00976 LEELEE MCKOY MODALITY 4 [facility] 1/> AREAS INC INC ULTRASOUN D EA 15 MIN THERAPEUT 40090 LEELEE MCKOY IC PX 1/> 4 [facility] AREAS INC INC EACH 15 MIN EXERCISES THERAPEUT 47603 LEELEE MCKOY IC PX 1/> 4 [facility] AREAS INC INC EACH 15 MIN EXERCISES APPL 89373 LEELEE MCKOY MODALITY 4 [facility] 1/> AREAS INC INC ULTRASOUN D EA 15 MIN APPLICATI 89930 LEELEE MCKOY ON 4 [facility] MODALITY INC INC 1/> AREAS HOT/COLD PACKS APPL 04570 LEELEE MCKOY MODALITY 4 [facility] 1/> AREAS INC INC ELEC STIMJ UNATTENDE D APPL 82915 LEELEE MCKOY MODALITY 4 [facility] 1/> AREAS INC INC ELEC STIMJ UNATTENDE D APPLICATI 35605 LEELEE MCKOY ON 4 [facility] MODALITY INC INC 1/> AREAS HOT/COLD PACKS THERAPEUT 21438 LEELEE MCKOY IC PX 1/> 4 [facility] AREAS INC INC EACH 15 MIN EXERCISES PHYSICAL 95348 LEELEE MCKOY THERAPY 4 [facility] EVALUATIO INC INC N RADEX 29849 [place] IZA[place] SPINE 4 MEDICAL MARCELLE LUMBOSACR IMAGING AL ASS MINIMUM 4 VIEWS THERAPEUT 68783 A C ISHANLA IC 4 RUIZ BOUDREAUX PROPHYLAC PSC TIC/DX INJECTION SUBQ/IM CULTURE 69845 QUEST QUEST BACTERIAL 4 DIAGNOSTI DIAGNOSTI CS QUANTTATI VE COLONY COUNT URINE URINLS 67060 A C ISHANLA DIP 4 RUIZ BOUDREAUX STICK/TAB PSC LET REAGNT NON-AUTO MICRSCPY THERAPEUT 74122 [facility] KEVAN IC 4 PHYSICIAN LACEY PROPHYLAC S GROUP TIC/DX INJECTION SUBQ/IM INJECTION J1885 [facility] KEVAN 4 PHYSICIAN LACEY KETOROLAC S GROUP TROMETHAM INE PER 15 MG INJECTION J1200 [facility] KEVAN 4 PHYSICIAN LACEY DIPHENHYD S GROUP RAMINE HCL UP TO 50 MG INJECTION J2550 [facility] KEVAN 4 PHYSICIAN LACEY PROMETHAZ S GROUP INE HCL UP TO 50 MG BLOOD 97932 MELCHOR A MELCHOR A COUNT 4 COMPLETE AUTO&AUTO DIFRNTL WBC BLOOD 64313 LEELEE MCKOY OCCULT 4 [facility] PEROXIDAS INC INC E ACTV QUAL FECES 1-3 SPEC SMR PRIM 40273 LEELEE MCKOY SRC 4 [facility] GRAM/GIEM INC INC SA STAIN BCT FUNGI/LIAM L GLUCOSE 45624 FIELD AMB FIELD AMB QUANTITAT 4 GAETANO BLOOD XCPT REAGENT STRIP BLOOD 16846 [facility] COUNT 4 MED CTR, MED CTR, COMPLETE ATTN: ATTN: AUTO&AUT[place] [address] [facility] THYROID 4 MED CTR, MED CTR, STIMULATI ATTN: ATTN: NG DENE DENE HORMONE TSH COMPREHEN 58001 [facility] SIVE 4 MED CTR, MED CTR, METABOLIC ATTN: ATTN: PANEL DENE DENE THERAPEUT 97928 CHELO CHELO IC 4 CONRAD CONRAD PROPHYLAC TIC/DX INJECTION SUBQ/IM INJECTION J2550 CHELO CHELO 4 CONRAD CONRAD PROMETHAZ INE HCL UP TO 50 MG INJECTION J1200 CHELO CHELO 4 CONRAD CONRAD DIPHENHYD RAMINE HCL UP TO 50 MG INJECTION J1885 CHELO CHELO 4 CONRAD CONRAD KETOROLAC TROMETHAM INE PER 15 MG INJECTION J1030 KILPELA KILPELA 4 JEA JEA METHYLPRE DNISOLONE ACETATE 40 MG INJ J0702 KILPELA KILPELA BETAMETHA 4 JEA JEA SONE ACETATE & PHOSPHATE 3 MG THERAPEUT 96512 KILPELA KILPELA IC 4 JEA JEA PROPHYLAC TIC/DX INJECTION SUBQ/IM THERAPEUT 84826 KILPELA KILPELA IC 4 JEA JEA PROPHYLAC TIC/DX INJECTION SUBQ/IM INJ J0702 KILPELA KILPELA BETAMETHA 4 JEA JEA SONE ACETATE & PHOSPHATE 3 MG INJECTION J1030 KILPELA KILPELA 4 JEA JEA METHYLPRE DNISOLONE ACETATE 40 MG INJECTION J2550 MARTHA THOMAS SEFERINO 4 PROMETHAZ INE HCL UP TO 50 MG INJECTION J1885 MARTHA THOMAS SEFERINO 4 KETOROLAC TROMETHAM INE PER 15 MG THERAPEUT 29770 MARTHA YEECK SEFERINO IC 4 PROPHYLAC TIC/DX INJECTION SUBQ/IM THERAPEUT 72498 FIELD AMB FIELD AMB IC 4 PROPHYLAC TIC/DX INJECTION SUBQ/IM INJECTION J1885 FIELD AMB FIELD AMB 4 KETOROLAC TROMETHAM INE PER 15 MG NONINVASI 87662 FIELD AMB FIELD AMB VE 4 EAR/PULSE OXIMETRY SINGLE DETER INJECTION J1040 MARTHA THOMAS SEFERINO 3 METHYLPRE DNISOLONE ACETATE 80 MG THERAPEUT 10054 MARTHA THOMAS SEFERINO IC 3 PROPHYLAC TIC/DX INJECTION SUBQ/IM INJECTION J1885 MARTHA THOMAS SEFERINO 3 KETOROLAC TROMETHAM INE PER 15 MG THERAPEUT 23453 FIELD AMB FIELD AMB IC 3 PROPHYLAC TIC/DX INJECTION SUBQ/IM IIV3 23276 FIELD AMB FIELD AMB VACCINE 3 SPLIT VIRUS 0.5 ML DOSAGE IM USE IM ADM 71005 FIELD AMB FIELD AMB PRQ ID 3 SUBQ/IM NJXS 1 VACCINE INJ J0702 FIELD AMB FIELD AMB BETAMETHA 3 SONE ACETATE & [place]OSPH[place] 3 [place] [address] NADIRA SOLOE PAT SURG 3 PATHOLOGY GROSS&LACEY ROSCOPIC EXAM EGD 19879 [place] ROJAS STEVE TRANSORAL 3 MEDICAL BIOPSY SERV SINGLE/MU FOUNDATIO LTIPLE N SPECIAL 67048 NADIRA SOLOE PAT STAIN 3 GROUP 1 MICROORGA NISMS I&R SPCL STN 69867 NADIRA DIAS NADIRA PAT 2 I&R 3 EXCPT MICROORG/ ENZYME/IM CYT CUL 09008 LEELEE LEELEE PRSMPTV 3 [facility] PTHGNC INC INC ORGANISMS SCR DNS CHART ANES 94143 NATALIO LANCE UPPER GI 3 CONRAD CONRAD ENDOSCOPY PROXIMAL TO DUODENUM THERAPEUT 97128 FIELD AMB FIELD AMB IC 3 PROPHYLAC TIC/DX INJECTION SUBQ/IM INJECTION J1885 FIELD AMB FIELD AMB 3 KETOROLAC TROMETHAM INE PER 15 MG BLOOD 80457 A C MELCHOR A COUNT 3 RUIZ GARRETT COMPLETE PSC AUTO&AUTO DIFRNTL WBC COLLECTIO 68883 A C MELCHOR A N VENOUS 3 RUIZ GARRE[place] [address] LEELEE MCKOY AMYLASE 3 [place] [address] LEELEE MCKOY GAMMAGLOB 3 [facility] ULIN IGA INC INC IGD IGG IGM EACH BLOOD 07624 LEELEE MCKOY COUNT 3 [facility] COMPLETE INC INC AUTO&AUTO DIFRNTL WBC SMR PRIM 26295 LEELEE MCKOY SRC 3 [facility] GRAM/GIEM INC INC SA STAIN BCT FUNGI/LIAM L FLUORESCE 89175 LEELEE MCKOY NT 3 [facility] NONNFCT INC INC AGT ANTB TITER EA ANTIBODY OVA&JULIO C 08008 LEELEE MCKOY ITES 3 [facility] DIRECT INC INC SMEARS CONCENTRA TION & ID COMPREHEN 62489 LEELEE MCKOY SIVE 3 [facility] [place] [address] LEELEE MCKOY LIPASE 3 [place] [address] LEELEE MCKOY CLOSTRIDI 3 [facility] [place] [address] LEELEE MCKOY GIARDIA 3 [facility] INC INC CUL BACT 10145 LEELEE MCKOY STOOL 3 [facility] AEROBIC INC INC ISOL SALMONELL A&SHIGELL THERAPEUT 71495 FAMILY FAMILY IC 3 CARE CARE PROPHYLAC ASSOCIATE ASSOCIATE TIC/DX S S INJECTION SUBQ/IM INJECTION J2550 FAMILY FAMILY 3 CARE CARE PROMETHAZ ASSOCIATE ASSOCIATE INE HCL S S UP TO 50 MG BLOOD 38758 FAMILY FAMILY COUNT 3 CARE CARE COMPLETE ASSOCIATE ASSOCIATE AUTO&AUTO S S DIFRNTL WBC ARTHROCEN 07806 PETTEY PETTEY TESIS 3 JAM JAM ASPIR&/IN J MAJOR JT/BURSA W/O US INJ J0702 PETTEY PETTEY BETAMETHA 3 JAM JAM SONE ACETATE & PHOSPHATE 3 MG RADIOLOGI 85331 ABEL ROMAN C 3 DON DON EXAMINATI ON KNEE 1/2 VIEWS LIPID 99447 COMBINED COMBINED PANEL 3 PHYSICIAN PHYSICIAN S LA S LA COMPREHEN 68655 COMBINED COMBINED SIVE 3 PHYSICIAN PHYSICIAN METABOLIC S LA S LA PANEL HEMOGLOBI 44563 COMBINED COMBINED N 3 PHYSICIAN PHYSICIAN GLYCOSYLA S LA S LA CLAIRE A1C ARTHROCEN 68191 PETTEY PETTEY TESIS 3 JAM JAM ASPIR&/IN J MAJOR JT/BURSA W/O US INJ J0702 PETTEY PETTEY BETAMETHA 3 JAM JAM SONE ACETATE & PHOSPHATE 3 MG THERAPEUT 87265 LEELEE MCKOY IC PX 1/> 3 [facility] AREAS INC INC EACH 15 MIN EXERCISES THERAPEUT 75194 LEELEE MCKOY IC PX 1/> 3 [facility] AREAS INC INC EACH 15 MIN EXERCISES PHYSICAL 04579 LEELEE MCKOY THERAPY 3 [facility] EVALUATIO INC INC N INJ J0702 PETTEY PETTEY BETAMETHA 3 JAM JAM SONE ACETATE & PHOSPHATE 3 MG ARTHROCEN 78420 PETTEY PETTEY TESIS 3 JAM JAM ASPIR&/IN J MAJOR JT/BURSA W/O US RADEX 03344 IZAIAH IZAIAH SHOULDER 3 MARCELLE MARCELLE COMPLETE MINIMUM 2 VIEWS IAADIADOO 99414 ABEL ROMAN 3 DON DON INFLUENZA BLOOD 02669 LEELEE MCKOY COUNT 2 [facility] COMPLETE INC INC AUTO&[place] [address] LEELEE MCKOY AMYLASE 2 [facility] INC INC INJECTION J2405 LEELEE MCKOY 2 [facility] ONDANSETR INC INC ON HCL PER 1 MG COMPREHEN 78511 LEELEE MCKOY SIVE 2 [facility] [place] [address] LEELEE MCKOY INFUSION 2 [facility] THERAPY/P INC INC ROPHYLAXI S /DX 1ST TO 1 HR THERAPEUT 76487 LEE[facility]E MCKOY IC 2 [facility] INJECTION INC [place] [address] LEELEE MCKOY LIPASE 2 [facility] INC INC URINE 51757 LEELEE MCKOY 2 [facility] TEST INC INC VISUAL COLOR CMPRSN METHS CHEMODNRV 55181 [facility] TJ MUSC 2 DOMI DOMI MUSC INNERVATE D FACIAL NRV UNIL CHEMODENE 31327 [facility] RVATION 2 DOMI DOMI NECK MUSCLE BOTULINUM J0585 [facility] TOXIN 2 DOMI DOMI TYPE A PER UNIT IAADIADOO 03628 ABEL KITCHENS 2 DON DON STREPTOCO CCUS GROUP A IAADIADOO 97620 ABEL MIHENS 2 DON DON STREPTOCO CCUS GROUP A IAADIADOO 57885 ROMAN ROMAN 2 DON DON STREPTOCO CCUS GROUP A URNLS DIP 41481 ABEL KITCHENS 2 DON DON STICK/TAB LET RGNT NON-AUTO W/O MICRSCP URNLS DIP 51386 ROMAN ROMAN 2 DON DON STICK/TAB LET RGNT NON-AUTO W/O MICRSCP URNLS DIP 45617 ABEL KITCHENS 2 DON DON STICK/TAB LET RGNT NON-AUTO W/O MICRSCP URNLS DIP 39540 ABEL MIHENS 2 DON DON STICK/TAB LET RGNT NON-AUTO W/O MICRSCP URNLS DIP 07925 ABEL KITCHENS 2 DON DON STICK/TAB LET RGNT NON-AUTO W/O MICRSCP URNLS DIP 08624 ROMAN ROMAN 2 DON DON STICK/TAB LET RGNT NON-AUTO W/O MICRSCP URNLS DIP 84758 [facility]E MCKOY 2 [facility] STICK/TAB INC INC LET REAGENT AUTO MICROSCOP Y HEMOGLOBI 46440 COMBINED COMBINED N 2 PHYSICIAN PHYSICIAN MISTIA S LA S LA CLAIRE A1C CHEMODENE 21625 [facility] RVATION 2 DOMI DOMI NECK MUSCLE CHEMODNRV 53153 [facility] TJ MUSC 2 DOMI DOMI MUSC INNERVATE D FACIAL NRV UNIL CHEMODENE 46148 [facility] RVATION 2 DOMI DOMI ECCRINE GLANDS OTH AREA PER DAY THERAPEUT 77744 LEELEE MCKOY IC 2 [facility] PROPHYLAC INC INC TIC/DX INJECTION SUBQ/[place] [address] LEELEE MCKOY LIPASE 2 [facility] INC INC COMPREHEN 38705 LEELEE MCKOY SIVE 2 [facility] [place] [address] LEELEE LABONE INFUSION 2 [facility] 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 THERAPY/P INC ROPHYLAXI S /DX 1ST TO 1 HR THERAPEUT 04687 LEELEE MCKOY IC 2 [facility] INJECTION INC [place] [address] LEELEE MCKOY AMYLASE 2 [facility] INC INC BLOOD 38029 LEELEE MCKOY COUNT 2 [facility] COMPLETE INC INC AUTO&AUTO DIFRNTL WBC SCREENING G0202 [place] [facility] 2 MEDICAL MARCELLE MAMMOGRAP IMAGING HY YOLANDA ASS INCL CAD WHEN PERFORMD COMPUTER- 13289 [place] AIDED 2 MEDICAL MARCELLE DETECTION IMAGING ASS SCREENING MAMMOGRAP HY CYTP 50515 QUEST QUEST SLIDES 2 DIAGNOSTI DIAGNOSTI CERV/VAG CS CS MNL SCRN PHYSICIAN SUPV BLOOD 48744 ROMAN ROMAN OCCULT 2 DON DON PEROXIDAS E ACTV QUAL FECES 1 DETER THERAPEUT 05698 LEELEE MCKOY IC 2 [facility] PROPHYLAC INC INC TIC/DX INJECTION SUBQ/IM URNLS DIP 68964 ROMAN ROMAN 2 DON DON STICK/TAB LET RGNT NON-AUTO W/O MICRSCP FIBRIN 54662 LEELEE MCKOY DGRADJ 2 [facility] PRODUCTS INC INC D-DIMER QUAL/SEMI [place] THERAPEUT 14845 LEELEE MCKOY IC 2 [facility] PROPHYLAC INC INC TIC/DX INJECTION SUBQ/IM THERAPEUT 93978 LEELEE MCKOY IC 2 [facility] PROPHYLAC INC INC TIC/DX INJECTION SUBQ/IM BLOOD 32435 LEELEE MCKOY COUNT 2 [facility] COMPLETE INC INC AUTO&AUTO DIFRNTL WBC URNLS DIP 88489 LEELEE LEELEE 2 [facility] STICK/TAB INC INC LET REAGENT AUTO MICROSCOP Y BASIC 24588 LEELEE MCKOY METABOLIC 2 [facility] PANEL INC INC CALCIUM TOTAL THERAPEUT 00803 LEELEE MCKOY IC 2 [facility] PROPHYLAC INC INC TIC/[place] INJECTION SUBQ/[place] [address] LEELEE MCKOY INFUSION 1 [facility] THERAPY/P INC INC ROPHYLAXI S /DX 1ST TO 1 HR BLOOD 17233 LEELEE MCKOY COUNT 1 [facility] COMPLETE INC INC AUTO&AUTO DIFRNTL WBC BASIC 75952 LEELEE MCKOY METABOLIC 1 [facility] PANEL INC INC CALCIUM TOTAL URNLS DIP 67697 LEELEE LEELEE 1 [facility] STICK/TAB INC INC LET REAGENT AUTO MICROSCOP Y OPHTH 94905 SALLY BHAGAT MEDICAL 1 VISION XM&EVAL COMPRE NEW PT 1/> VST COMPUTERI 78070 SALLY BHAGAT ZED 1 VISION OPHTHALMI C IMAGING OPTIC NERVE SEDIMENTA 23931 LEELEE MCKOY TION RATE 1 [facility] RBC INC INC NON-AUTOM ATED COMPREHEN 14475 LEELEE MCKOY SIVE 1 [facility] [place] [address] GAVIN BLISS HEAD/BRAI 1 MEDICAL MARCELLE N W/O IMAGING CONTRAST ASS MATERIAL BLOOD 76281 LEELEE MCKOY COUNT 1 [facility] COMPLETE INC INC AUTO&AUTO DIFRNTL WBC 3D 50783 GAVIN BLISS RENDERING 1 MEDICAL MARCELLE W/INTERP IMAGING & ASS POSTPROCE SS SUPERVISI ON URNLS DIP 31307 LEELEE LEELEE 1 [facility] STICK/TAB INC INC LET REAGENT AUTO MICROSCOP Y URNLS DIP 35581 LEELEE MONTEMAYORON 1 [facility] STICK/TAB INC INC LET REAGENT AUTO MICROSCOP Y BLOOD 92966 LEELEE MCKOY COUNT 1 [facility] COMPLETE INC INC AUTO&[place] [address] LEELEE MCKOY AMYLASE 1 [facility] INC INC COMPREHEN 70484 LEELEE MCKOY SIVE 1 [facility] [address] LEELEE MCKOY LIPASE 1 [facility] INC INC COMPREHEN 59888 LEELEE MCKOY SIVE 1 [facility] METABOLIC INC INC PANEL BLOOD 51830 LEELEE MCKOY COUNT 1 [facility] COMPLETE INC INC AUTO&AUTO DIFRNTL WBC URNLS DIP 08403 LEELEE MONTEMAYORON 1 [facility] STICK/TAB INC INC LET REAGENT AUTO MICROSCOP Y PHYSICAL 03125 LEELEE MCKOY THERAPY 1 [facility] EVALUATIO INC INC N THERAPEUT 30285 LEELEE MCKOY IC PX 1/> 1 [facility] AREAS INC INC EACH 15 MIN EXERCISES APPL 51866 LEELEE MCKOY MODALITY 1 [facility] 1/> AREAS INC INC ELEC STIMJ UNATTENDE D APPLICATI 03354 LEELEE MCKOY ON 1 [facility] MODALITY INC INC 1/> AREAS HOT/COLD PACKS RADEX 21292 GAVIN CARLINUTCHER SPINE 1 MEDICAL MARCELLE CERVICAL IMAGING 4 OR 5 ASS VIEWS RADEX 79571 LEELEE MCKOY SPINE 1 [facility] CERVICAL INC INC 6 OR MORE VIEWS IAADIADOO 12--201 68991 ABEL KITCHENS 0 DON [place] [address] [place] HEAD/BRAI 0 MEDICAL MARCELLE N W/O IMAGING CONTRAST ASS MATERIAL 3D 82637 LEELEE MCKOY RENDERING 0 [facility] W/INTERP INC INC & POSTPROCE SS SUPERVISI ON INITIAL 61253 SNEHAL ROJAS STEVE INPATIENT 0 MEDICAL CONSULT SERV NEW/ESTAB FOUNDATIO PT 55 MIN OBSERVATI 63059 ABEL ROMAN ON CARE 0 DON DON DISCHARGE MANAGEMEN T INITIAL 27135 ABEL ROMAN OBSERVATI 0 DON DON ON CARE/DAY 50 MINUTES RADEX ABD 08395 [place] FAIZAN COMPL 0 MEDICAL JOSIE AQT ABD IMAGING W/S/E/D ASS VIEWS 1 VIEW CH RADEX ABD 47116 [place] FA[place] COMPL 0 MEDICAL JOSIE AQT ABD IMAGING W/S/E/D ASS VIEWS 1 VIEW CH COMPREHEN 44080 LEELEE MCKOY SIVE 0 [facility] [place] [address] LEELEE MCKOY LIPASE 0 [place] [address] LEELEE MCKOY AMYLASE 0 [facility] INC INC BLOOD 38804 LEELEE MCKOY COUNT 0 [facility] COMPLETE INC INC AUTO&AUTO DIFRNTL WBC URINE 41795 LEELEE MCKOY 0 [facility] TEST INC INC VISUAL COLOR CMPRSN METHS URNLS DIP 05979 LEELEE MCKOY 0 [facility] STICK/TAB INC [place] [address] LEELEE MCKOY INFUSION 0 [facility] THERAPY/P INC INC ROPHYLAXI S /DX 1ST TO 1 HR SUSCEPTIB 11690 LEELEE MCKOY LTY STDY 0 [facility] ANTIMICRB INC INC IAL MICRO/AGA R DILUTJ INCISION 93540 JOSE MARIA ÁLVAREZ & 0 EMERGENCY III JESSEE DRAINAGE SERVICES ABSCESS COMPLICAT ED/MULTIP LE CUL BACT 12641 LEELEE MCKOY XCPT 0 [facility] URINE INC INC BLOOD/STO OL AEROBIC ISOL CUL BACT 76642 LEELEE MCKOY AEROBIC 0 [facility] ADDL INC INC METHS DEFINITIV E EA ISOL OTH 8604 LEELEE MCKOY INCISION 0 [facility] W/DRAINAG INC INC E SKIN&SUBC UTANEOUS TISSUE 3D 14703 [facility] C IZAIAH RENDERING 0 IZAIAH MARCELLE W/INTERP & POST[place]E [place] MRI 74055 SOL[facility] C IZAIA[facility] SPINAL 0 IZAIAH MARCELLE CANAL LUMBAR W/[place] [address] GAVIN IZAIAH, RETROPERI 0 MEDICAL [facility] TONEAL IMAGING REAL TIME ASSOCIATE W/IMAGE S COMPLETE CUL BACT 49946 [facility]LEE MCKOY AEROBIC 0 [facility] ADDL INC INC METHS DEFINITIV E EA ISOL 3D 78123 GAVIN IZAIAH, RENDERING 0 [facility] IMAGING W/INTERP& ASSOCIATE POSTPROC S DIFF WORK STATION CUL BACT 36210 [facility] MCKOY XCPT 0 [facility] URINE INC INC BLOOD/STO OL AEROBIC ISOL CT PELVIS 56453 GAVIN IZAIAH, W/O 0 [facility]ICAL [facility] CONTRAST IMAGING MATERIAL ASSOCIATE S COMPREHEN 40546 [facility] SIVE 0 [facility] METABOLIC INC INC PANEL INCISION 97074 JOSE MARIA ÁLVAREZ & 0 EMERGENCY III, DRAINAGE SERVICES ANGELIQUE GAXIOLA COMPLICAT ASSOCIATE ED/[place] [address] L[facility] M[facility] LIPASE 0 [facility] INC INC SUSCEPTIB 85869 LEE[facility]E MCKOY LTY STDY 0 [facility] ANTIMICRB INC INC IAL [place]CRO/[place] D[place] [address] LEELEE MCKOY INFUSION 0 [facility] THERAPY/P INC INC ROPHYLAXI S /DX 1ST TO 1 HR BLOOD 53146 LEELEE MCKOY COUNT 0 [facility] COMPLETE INC INC AUTO&[place] [address] GAVIN IZAIAH, ABDOMEN 0 MEDICAL [facility] W/O IMAGING [place] [address] LEELEE MCKOY AMYLASE 0 [facility] INC INC URNLS DIP 43383 L[facility] MCKOY 0 [facility] STICK/TAB INC INC LET REAGENT AUTO MICROSCOP Y OTH 8604 LEELEE MCKOY INCISION 0 [facility] W/DRAINAG INC INC E SKIN&SUBC UTANEOUS TISSUE RADEX 49565 ROMAN, ROMAN, SPINE 0 DON R DON R LUMBOSACR AL MINIMUM 4 [place] [address] LEELEE MCKOY STREPTOCO 0 [facility] [place] [address] LEELEE MCKOY INFUSION 0 [facility] THERAPY/P INC INC ROPHYLAXI S /DX 1ST TO 1 HR URNLS DIP 01335 L[facility]E MCKOY 0 [facility] STICK/TAB INC INC LET REAGENT AUTO MICROSCOP Y CULTURE 37696 LEELEE MCKOY BACTERIAL 0 [facility] INC INC QUANTTATI VE COLONY COUNT URINE COMPREHEN 58159 LEELEE MCKOY SIVE 9 [facility] METABOLIC INC INC PANEL URNLS DIP 73046 LEE[facility]E MCKOY 9 [facility] STICK/TAB INC INC LET REAGENT AUTO MICROSCOP Y BLOOD 49539 LEELEE MCKOY COUNT 9 [facility] COMPLETE INC INC AUTO&AUTO DIFRNTL WBC IAADI 88675 LEELEE MCKOY INFLUENZA 9 [facility] B VIRUS INC INC IAADI 18617 LEELEE MCKOY INFFLUENZ 9 [facility] A A VIRUS INC INC RADEX 33624 LEELEE MCKOY HAND 9 [facility] MINIMUM [address] [place] [address] GAVIN BLISS, HEAD/BRAI 9 MEDICAL [facility] N W/O IMAGING CONTRAST ASSOCIATE MATERIAL S 3D 58736 LEELEE MONTEMAYORON RENDERING 9 [facility] W/INTERP INC INC & POSTPROCE SS SUPERVISI ON URNLS DIP 02743 LEELEE MCKOY 9 [facility] STICK/TAB INC INC LET REAGENT AUTO MICROSCOP Y URNLS DIP 09813 LEE[facility]E MCKOY 9 [facility] STICK/TAB INC INC LET REAGENT AUTO MICROSCOP Y COMPREHEN 12251 LEELEE LEELEE SIVE 9 [facility] METABOLIC INC INC PANEL ECG 58635 LEELEE MICH, ROUTINE 9 [facility] HOSPITAL W/LEAST PROF SERV 12 LDS I&R ONLY RHYTHM 43750 LEELEE LEELEE ECG 1-3 9 [facility] LEADS INC INC TRACING ONLY W/O I&R ECG 64275 LEELEEJOSEFINA MCKOY ROUTINE 9 [facility] ECG INC INC W/LEAST 12 LDS TRCG ONLY W/O I&[place] [address] LEELEE MCKOY INFUSION 9 [facility] THERAPY/P INC INC ROPHYLAXI S /DX 1ST TO 1 HR BLOOD 45180 LEELEE MCKOY COUNT 9 [facility] COMPLETE INC INC AUTO&AUTO DIFRNTL WBC CULTURE 44453 LEELEE MCKOY BACTERIAL 9 [facility] INC INC QUANTTATI VE COLONY COUNT URINE URNLS DIP 90830 LEELEE MCKOY 9 [facility] STICK/TAB INC INC LET REAGENT AUTO MICROSCOP Y URNLS DIP 77977 LEELEE MCKOY 9 [facility] STICK/TAB INC INC [place] [address] LEELEE MCKOY LIPASE 9 [facility] INC INC COMPREHEN 17157 LEELEE MCKOY SIVE 9 [facility] METABOLIC INC INC PANEL BLOOD 41353 LEELEE MCKOY COUNT 9 [facility] COMPLETE INC INC AUTO&[place] [address] LEELEE MCKOY AMYLASE 9 [place] [address] LEELEE MCKOY INFUSION 9 [facility] THERAPY/P INC INC ROPHYLAXI S /DX 1ST TO 1 HR COMPREHEN 25476 LEELEE MCKOY SIVE 9 [facility] METABOLIC INC INC PANEL URNLS DIP 75734 LEELEE MCKOY 9 [facility] STICK/TAB INC INC LET REAGENT AUTO MICROSCOP Y BLOOD 26711 LEELEE MCKOY COUNT 9 [facility] COMPLETE INC INC AUTO&AUTO DIFRNTL WBC BLOOD 90300 LEELEE MCKOY COUNT 9 [facility] COMPLETE INC INC AUTO&[place] [address] [facility] 9 [facility] INC INC RADEX ABD 67344 [facility] COMPL 9 [facility] AQT ABD INC INC W/S/E/D VIEWS 1 VIEW CH COMPREHEN 24490 [facility] SIVE 9 [facility] [place] [address] LEELEE MCKOY LIPASE 9 [place] [address] [facility] LEELEE INFUSION 9 [facility] THERAPY/P INC INC ROPHYLAXI S /DX 1ST TO 1 HR URNLS DIP 72206 LEELEEJOSEFINA MCKOY 9 [facility] STICK/TAB INC INC LET REAGENT AUTO MICROSCOP Y URNLS DIP 80818 ABEL ROMAN, 9 DON R DON R STICK/TAB LET RGNT NON-AUTO W/O MICRSCP 3D 66475 [place] IZAIAH, RENDERING 9 [facility]ICAL SOL[facility] IMAGING W/INTERP& ASSOCIATE POSTPROC S DIFF WORK STATION CT PELVIS 46259 [facility] W/O 9 MED[facility] CONTRAST IMAGING MATERIAL ASSOCIATE S URNLS DIP 08774 LEELEEJOSEFINA MCKOY 9 [facility] STICK/TAB INC INC LET REAGENT AUTO MICROSCOP Y COMPREHEN 28424 [facility]EELEE SIVE 9 [facility] [place] [address] LEELEE MCKOY LIPASE 9 [place] [address] [facility] MCKOY AMYLASE 9 [facility] INC INC BLOOD 12585 L[facility] LEELEE COUNT 9 [facility] COMPLETE INC INC AUTO&[place] [address] [facility] M[facility] ABDOMEN 9 [facility] W/O INC INC CONTRAST MATERIAL RADEX 49794 [facility] ANKLE 8 [facility] COMPLETE INC INC MINIMUM 3 VIEWS RADEX 52127 [facility] FAIZAN, FOOT 8 MEDICAL ZOË P COMPLETE IMAGING MINIMUM 3 ASSOCIATE VIEWS S BLOOD 24434 [facility] MCK[facility] COUNT 8 [facility] COMPLETE INC INC AUTO&AUTO DIFRNTL WBC RADEX 91300 [facility] MCKOY SPINE 8 [facility] LUMBOSACR INC INC AL MINIMUM [address] PELVIS 33481 [facility] MCKOY W/O & 8 [facility] W/CONTRAS INC INC T MATERIAL RADIOLOGI 40562 [facility] C 8 [facility] EXAMINATI INC INC ON PELVIS 1/2 VIEWS 3D 63654 [facility] IZAIAH, RENDERING 8 MEDICAL SOLANGE IMAGING W/INTERP& ASSOCIATE POSTPROC S DIFF WORK STATION URNLS DIP 46276 [facility]OY [facility] STICK/TAB INC [place] [address] LEELEEJOSEFINA MONTEMAYORON ABDOMEN 8 [facility] W/O & INC INC W/CONTRAS T MATERIAL BASIC 44766 L[facility] LEELEE METABOLIC 8 [facility] PANEL INC INC CALCIUM TOTAL URNLS DIP 32953 ABEL ROMAN 8 DON R DON R STICK/TAB LET RGNT NON-AUTO W/O MICRSCP IAADI 56963 [facility] MCK[facility] INFFLUENZ 8 [facility] A A VIRUS INC INC IAADI 76661 LEELEE MCKOY INFLUENZA 8 [facility] B VIRUS INC INC IAADIADOO 32435 ABEL ROMAN 8 DON R DON R STREPTOCO CCUS GROUP A COMPREHEN 64881 [facility] MCKOY SIVE 8 [facility] METABOLIC INC INC PANEL BLOOD 04094 [facility] MCKOY COUNT 8 [facility] COMPLETE INC INC [place] [address] [facility] MCKOY THER 8 [facility] PROPH/DX INC INC 1ST >1 HR URNLS DIP 62520 [facility] LEELEE 8 [facility] STICK/TAB INC INC LET REAGENT AUTO MICROSCOP Y IAADIADOO 98298 ABEL ROMAN, 8 DON R DON R STREPTOCO CCUS GROUP A Encounters Encounter Start End Date Code Location Performer Type Date OFFICE 00299 TWIN CUEVAS 7 7 PHYSICIAN T VISIT PRACTICE 25 L MINUTES OFFICE 90391 [facility] CUEVAS 7 7 [facility] T VISIT 5 INC MINUTES [facility]PATIEN [facility] T [facility]PATIEN INC T EMERGENCY 49341 KRISTINA MATHUR 7 7 PHYSICIAN [facility] T VISIT HIGH/URGE NT SEVERITY EMERGENCY 20265 [facility] 7 7 [facility] DEPARTMEN INC T VISIT LOW/MODER SEVERITY OFFICE 79376 L[facility] CUEVAS 7 7 [facility] T VISIT 5 INC MINUTES [facility] OUTPATIEN INC T OFFICE 38485 [place] CUEVAS 7 7 T VISIT 15 MINUTES OFFICE 09048 [place] CUEVAS 7 7 T VISIT 15 MINUTES OFFICE 23658 [place] CUEVAS 7 7 T VISIT 25 MINUTES EMERGENCY 67316 KRISTINA BARRERA 7 7 PHYSICIAN [facility] T VISIT MODERATE SEVERITY OFFICE 96733 [place] CUEVAS 7 7 T VISIT 15 MINUTES EMERGENCY 91026 KRISTINA MATHUR 7 7 PHYSICIAN [facility] S, [facility] T VISIT HIGH/URGE NT SEVERITY OFFICE 84532 LAK[place]MI CUEVAS 6 6 T VISIT 15 MINUTES OFFICE 50061 [place] CUEVAS 6 6 SADIQ SADIQ T VISIT 15 MINUTES OFFICE 68236 ARNOLD ARNOLD OUTPATIEN 6 6 SADIQ SADIQ T VISIT 15 MINUTES OFFICE 55540 [facility] MARTINS OUTPATIEN 6 6 SADIQ SADIQ T NEW 30 MINUTES OFFICE 90677 [facility] LA OUTPATIEN 6 6 PHYSICIAN DOMI T VISIT S GROUP 15 MINUTES [facility] - [facility] 6 [facility] OUTPATIEN [facility] T [facility] OUTPATIEN INC T OFFICE 35695 [facility] [place] OUTPATIEN 6 6 PHYSICIAN T VISIT GROUP 25 MINUTES INITIAL 41010 [facility] CHASITYPEL PREVENTIV 6 6 PHYSICIAN DOMI E S GROUP MEDICINE NEW PATIENT 40-64YRS OFFICE 37364 IVONE PAYNE OUTPATIEN 6 6 MD MARY, T VISIT PSC 25 MINUTES HOSPITAL [facility] - 6 6 [facility] OUTPATIEN INC T OFFICE 08974 [facility] KEVAN OUTPATIEN 6 6 PHYSICIAN LACEY T VISIT S GROUP 15 MINUTES OFFICE 99355 [facility] KEVAN OUTPATIEN 6 6 PHYSICIAN LACEY T VISIT S GROUP 15 MINUTES [facility] - 6 6 [facility] OUTPATIEN INC T [facility] L[facility]LEE - 6 6 [facility] OUTPATIEN INC T OFFICE 97286 [facility] KEVAN OUTPATIEN 6 6 PHYSICIAN LACEY T VISIT S GROUP 15 MINUTES OFFICE 72793 [facility] [address] OUTPATIEN 6 6 PHYSICIAN T VISIT S GROUP 15 MINUTES OFFICE 02506 [facility] KEVAN OUTPATIEN 6 6 PHYSICIAN LACEY T VISIT S GROUP 10 MINUTES [facility] - 6 6 [facility] OUTPATIEN INC [facility] [place] - 6 6 N OUTPATIEN COMMUNTIY T HOSPITA OFFICE 17002 [place] MARIOESPE OUTPATIEN 6 6 ORTHOPEDI JEFF T VISIT C 15 ASSOCIAT MINUTES OFFICE 84262 [facility] [address] OUTPATIEN 6 6 PHYSICIAN T VISIT S GROUP 15 MINUTES HOSPITAL [facility] - 6 6 [facility] T OFFICE 35581 [place] WAESPE OUTPATIEN 6 6 ORTHOPEDI JEFF T NEW 45 C MINUTES ASSOCIAT OFFICE 27364 [facility] KEVAN OUTPATIEN 6 6 PHYSICIAN LACEY T VISIT S GROUP 15 MINUTES OFFICE 74610 [facility] [address] OUTPATIEN 6 6 PHYSICIAN T VISIT S GROUP 10 MINUTES OFFICE 67165 [facility] KEVAN OUTPATIEN 5 5 PHYSICIAN LACEY T VISIT S GROUP 15 MINUTES EMERGENCY 71027 [facility] 5 5 [facility] DEPARTMEN INC T VISIT LOW/MODER SEVERITY EMERGENCY 19353 KRISTINA KEVAN 5 5 PHYSICIAN LACEY DEPARTMEN S, PLLC T VISIT HIGH/URGE NT SEVERITY [facility] - 5 5 [facility] OUTPATIEN INC T OFFICE 52943 [facility] KEVAN OUTPATIEN 5 5 PHYSICIAN LACEY T VISIT S GROUP 10 MINUTES OFFICE 55097 [facility] KEVAN OUTPATIEN 5 5 PHYSICIAN LACEY T VISIT S GROUP 15 MINUTES OFFICE 98590 [facility] PETTEY OUTPATIEN 5 5 PHYSICIAN JAM T VISIT S GROUP 15 MINUTES OFFICE 64385 [facility] KEVAN OUTPATIEN 5 5 PHYSICIAN LACEY T VISIT S GROUP 10 MINUTES [facility] - 5 5 [facility] OUTPATIEN INC T OFFICE 60718 [facility] KEVAN OUTPATIEN 5 5 PHYSICIAN LACEY T VISIT S GROUP 10 MINUTES EMERGENCY 90466 KRISTINA KEVAN 5 5 PHYSICIAN LACE[facility] DEPARTMEN S, PLLC T VISIT MODERATE SEVERITY OFFICE 84057 IVONE MARY ANJ OUTPATIEN 5 5 MD MARY, T NEW 30 PSC MINUTES OFFICE 92784 [facility] OUTPATIEN 5 5 [facility] T VISIT INC 10 MINUTES [facility] - 5 5 [facility] OUTPATIEN INC T OFFICE 94600 [facility] KEVAN OUTPATIEN 5 5 PHYSICIAN LACEY T VISIT S GROUP 10 MINUTES OFFICE 91652 [place] MARGUERITE ANT OUTPATIEN 5 5 MEDICAL T VISIT SERV 25 FOUNDATIO MINUTES N OFFICE 25149 [facility] KEVAN OUTPATIEN 5 5 PHYSICIAN LACEY T VISIT S GROUP 15 MINUTES OFFICE 70678 [facility] KEVAN OUTPATIEN 5 5 PHYSICIAN LACEY T VISIT S GROUP 15 MINUTES EMERGENCY 87936 KRISTINA KEVAN 5 5 PHYSICIAN LACE[facility] DEPARTMEN S, PLLC T VISIT MODERATE SEVERITY OFFICE 91182 [facility] KEVAN OUTPATIEN 5 5 PHYSICIAN LACEY T VISIT S GROUP 10 MINUTES OFFICE 95105 [facility] KEVAN OUTPATIEN 5 5 PHYSICIAN LACEY T VISIT S GROUP 10 MINUTES OFFICE 82560 A C YAMIL GABY OUTPATIEN 5 5 RUIZ GARRETT T VISIT PSC 15 MINUTES OFFICE 90522 [facility] FRYMAN OUTPATIEN 5 5 PHYSICIAN EUG T VISIT S GROUP 15 MINUTES OFFICE 53769 [facility] KEVAN OUTPATIEN 5 5 PHYSICIAN LACEY T VISIT S GROUP 25 MINUTES OFFICE 62571 A C KILPELA OUTPATIEN 5 5 RUIZ GARRETT JEZuir T VISIT PSC 15 MINUTES OFFICE 35657 A C KEMIPELA OUTPATIEN 5 5 RUIZ GARRETT JEZuri T VISIT PSC 15 MINUTES OFFICE 35994 [facility] KEVAN OUTPATIEN 5 5 PHYSICIAN LACEY T VISIT S GROUP 15 MINUTES OFFICE 38287 [facility] KEVAN OUTPATIEN 5 5 PHYSICIAN LACEY T VISIT S GROUP 15 MINUTES OFFICE 95824 [facility] KEVAN OUTPATIEN 5 5 PHYSICIAN LACEY T VISIT S GROUP 10 MINUTES OFFICE 53226 [facility] FRYMAN OUTPATIEN 5 5 PHYSICIAN EUG T VISIT S GROUP 15 MINUTES OFFICE 83082 [facility] FRYMAN OUTPATIEN 4 4 PHYSICIAN EUG T VISIT S GROUP 15 MINUTES OFFICE 74220 [facility] KEVAN OUTPATIEN 4 4 PHYSICIAN LACEY T VISIT S GROUP 10 MINUTES EMERGENCY 40545 [facility] 4 4 [facility] DEPARTMEN INC T VISIT LOW/MODER SEVERITY EMERGENCY 76014 LOBO CORNELL 4 4 [facility] VISIT PHYS HIGH/URGE NT SEVERITY [facility] 4 4 [facility] OUTPATIEN INC T OFFICE 11125 [facility] KEVAN OUTPATIEN 4 4 PHYSICIAN LACEY T VISIT S GROUP 15 MINUTES OFFICE 24745 [facility] KEVAN OUTPATIEN 4 4 PHYSICIAN LACEY T VISIT S GROUP 15 MINUTES [facility] - 4 4 [facility] OUTPATIEN INC T OFFICE 25096 [facility] KEVAN OUTPATIEN 4 4 PHYSICIAN LACEY T VISIT S GROUP 10 MINUTES [facility] - 4 4 [facility] OUTPATIEN INC T [facility] - 4 4 [facility] OUTPATIEN INC T OFFICE 14882 [facility] KEVAN OUTPATIEN 4 4 PHYSICIAN LACEY T VISIT S GROUP 15 MINUTES EMERGENCY 71773 LOBO MATHUR 4 4 CLARIBEL LACEY DEPARTMEN EMERGENCY T VISIT PHYS MODERATE SEVERITY OFFICE 88671 Zuri CUEVAS 4 4 RUIZ GARRETT JEZuri T VISIT PSC 15 MINUTES OFFICE 50284 A C KILPELA OUTPATIEN 4 4 RUIZ GARRETT JEZuri T VISIT PSC 15 MINUTES EMERGENCY 70011 [facility] KEVAN 4 4 CLARIBEL LACEY DEPARTMEN EMERGENCY T VISIT PHYS HIGH/URGE NT SEVERITY OFFICE 32721 A C KILPELA OUTPATIEN 4 4 RUIZ GARRETT JEZuri T VISIT PSC 15 MINUTES OFFICE 03131 A C FIELD AMB OUTPATIEN 4 4 RUIZ GARRETT T VISIT PSC 15 MINUTES OFFICE 40697 [facility] KEVAN OUTPATIEN 4 4 PHYSICIAN LACEY T VISIT S GROUP 15 MINUTES OFFICE 49446 RUIZ Keating OUTPATIEN 4 4 T VISIT 15 MINUTES OFFICE 44705 KILPELA KILPELA OUTPATIEN 4 4 JEA JEA T VISIT 15 MINUTES [facility] 4 [facility] OUTPATIEN INC T EMERGENCY 52270 KEVAN MATHUR 4 4 LACEY LACEY DEPARTMEN T VISIT MODERATE SEVERITY OFFICE 64675 FIELD AMB FIELD AMB OUTPATIEN 4 4 T VISIT 15 MINUTES OFFICE 28363 FIELD AMB FIELD AMB OUTPATIEN 4 4 T VISIT 15 MINUTES OFFICE 68044 KILPELA KILPELA OUTPATIEN 4 4 JEA JEA T VISIT 15 MINUTES [facility] [place] [facility] 4 [facility], ATTN: DENE OFFICE 81127 FIELD AMB FIELD AMB OUTPATIEN 4 4 T VISIT 15 MINUTES OFFICE 43470 FIELD AMB FIELD AMB OUTPATIEN 4 4 T VISIT 15 MINUTES OFFICE 09683 FIELD AMB FIELD AMB OUTPATIEN 4 4 T VISIT 15 MINUTES OFFICE 40397 CHELO CHELO OUTPATIEN 4 4 CONRAD CONRAD T VISIT 15 MINUTES OFFICE 30516 FIELD AMB FIELD AMB OUTPATIEN 4 4 T VISIT 15 MINUTES OFFICE 73308 KILPELA KILPELA OUTPATIEN 4 4 JEA JEA T VISIT 15 MINUTES OFFICE 07037 FIELD AMB FIELD AMB OUTPATIEN 4 4 T VISIT 15 MINUTES OFFICE 98517 KILPELA KILPELA OUTPATIEN 4 4 JEA JEA T VISIT 15 MINUTES OFFICE 19799 MARTHA THOMAS SEFERINO OUTPATIEN 4 4 T VISIT 15 MINUTES OFFICE 90262 KILPELA KILPELA OUTPATIEN 4 4 JEA JEA T VISIT 15 MINUTES OFFICE 50330 ROJAS STEVE ROJAS STEVE OUTPATIEN 4 4 T VISIT 15 MINUTES OFFICE 39331 FIELD AMB FIELD AMB OUTPATIEN 4 4 T VISIT 15 MINUTES OFFICE 96394 MARTHA GENTILE OUTPATIEN 3 3 T VISIT 15 MINUTES OFFICE 55638 SANTANA SANTANA CONSULTAT 3 3 MEJIA MEJIA ION NEW/ESTAB PATIENT 40 MIN OFFICE 18524 ROJAS STEVE ROJAS STEVE OUTPATIEN 3 3 T VISIT 25 MINUTES OFFICE 67262 FIELD AMB FIELD AMB OUTPATIEN 3 3 T VISIT 15 MINUTES [facility] - 3 3 [facility] OUTPATIEN INC T OFFICE 33942 FIELD AMB FIELD AMB OUTPATIEN 3 3 T VISIT 15 MINUTES OFFICE 50978 KILPELA KILPELA OUTPATIEN 3 3 JEA JEA T VISIT 15 MINUTES OFFICE 85018 WALDEMAR WALDEMAR OUTPATIEN 3 3 DOMI DOMI T VISIT 25 MINUTES OFFICE 58510 FIELD AMB FIELD AMB OUTPATIEN 3 3 T VISIT 15 MINUTES OFFICE 79711 Zuri MENENDEZ OUTPATIEN 3 3 RUIZ BOUDREAUX T VISIT PSC 15 MINUTES OFFICE 02475 Zuri Keating OUTPATIEN 3 3 RUIZ GARRETT T VISIT PSC 15 MINUTES [facility] - 3 3 [facility] T OFFICE 96027 ROJAS STEVE ROJAS STEVE CONSULTAT 3 3 ION NEW/ESTAB PATIENT 60 MIN OFFICE 44911 ROMAN ROMAN OUTPATIEN 3 3 DON DON T VISIT 15 MINUTES OFFICE 24464 ROMAN ROMAN OUTPATIEN 3 3 DON DON T VISIT 15 MINUTES OFFICE 38716 FAMILY OUTPATIEN 3 3 CARE T VISIT ASSOCIATE 15 S MINUTES OFFICE 66038 ROMAN ROMAN OUTPATIEN 3 3 DON DON T VISIT 15 MINUTES OFFICE 17169 ROMAN ROMAN OUTPATIEN 3 3 DON DON T VISIT 15 MINUTES OFFICE 64685 ROMAN ROMAN OUTPATIEN 3 3 DON DON T VISIT 25 MINUTES OFFICE 07806 ROMAN ROMAN OUTPATIEN 3 3 DON DON T VISIT 15 MINUTES EMERGENCY 73270 [facility] 3 3 [facility] T VISIT LOW/MODER SEVERITY [facility] 3 3 [facility] INC T EMERGENCY 89255 PREETI ÁLVAREZ 3 3 III JESSEE III JESSEE DEPARTMEN T VISIT MODERATE SEVERITY OFFICE 97840 PETTEY PETTEY OUTPATIEN 3 3 JAM JAM T VISIT 15 MINUTES [facility] - 3 3 [facility] T OFFICE 18446 PETTEY PETTEY OUTPATIEN 3 3 JAM JAM T NEW 30 MINUTES [facility] - 3 3 [facility] OUTPATI[facility] INC T OFFICE 13460 ROMAN ROMAN OUTPATIEN 3 3 DON DON T VISIT 15 MINUTES OFFICE 14857 ROMAN ROMAN OUTPATIEN 3 3 DON DON T VISIT 15 MINUTES OFFICE 68150 ROMAN ROMAN OUTPATIEN 3 3 DON DON T VISIT 15 MINUTES OFFICE 73403 ROMAN ROMAN OUTPATIEN 3 3 DON DON T VISIT 15 MINUTES EMERGENCY 45800 JOSE MARIA DE LA ROSA 2 2 EMERGENCY JESSEE DEPARTMEN SERVICES T VISIT HIGH/URGE NT SEVERITY [facility] 2 [facility] OUT[facility] INC T EMERGENCY 10316 [facility] 2 2 [facility] DEPARTMEN INC T VISIT MODERATE SEVERITY OFFICE 76596 ROMAN ROMAN OUTPATIEN 2 2 DON DON T VISIT 15 MINUTES OFFICE 59929 ROMAN ROMAN OUTPATIEN 2 2 DON DON T VISIT 15 MINUTES OFFICE 41721 ROMAN ROMAN OUTPATIEN 2 2 DON DON T VISIT 15 MINUTES OFFICE 63279 ROMAN ROMAN OUTPATIEN 2 2 DON DON T VISIT 15 MINUTES OFFICE 59929 ROMAN ROMAN OUTPATIEN 2 2 DON DON T VISIT 15 MINUTES [facility] 2 [facility] OUTPAT[facility] INC T EMERGENCY 74351 [facility] 2 2 [facility] DEPARTMEN INC T VISIT LOW/MODER SEVERITY EMERGENCY 33913 JOSE MARIA LINDQUIST 2 2 EMERGENCY DEPARTMEN SERVICES T VISIT MODERATE SEVERITY OFFICE 21222 ROMAN ROMAN OUTPATIEN 2 2 DON DON T VISIT 15 MINUTES EMERGENCY 65169 JOSE MARIA DE LA ROSA 2 2 [facility] T VISIT HIGH/URGE NT SEVERITY EMERGENCY 60254 KEVAN KEVAN 2 2 [facility] T VISIT MODERATE SEVERITY [facility] - 2 2 [facility] OUTPATIEN [facility] T EMERGENCY 25882 [facility] 2 2 [facility] INC T VISIT LOW/MODER SEVERITY OFFICE 51405 ROMAN ROMAN OUTPATIEN 2 2 DON DON T VISIT 15 MINUTES OFFICE 32848 ROMAN ROMAN OUTPATIEN 2 2 DON DON T VISIT 15 MINUTES EMERGENCY 27220 PREETI ÁLVAREZ 2 2 III [facility]ESSEE III [facility] T VISIT HIGH/URGE NT SEVERITY [facility] 2 2 [facility] T EMERGENC[facility] 31284 [facility] 2 2 [facility] INC T VISIT LOW/MODER SEVERITY OFFICE 83838 ROMAN ROMAN OUTPATIEN 2 2 DON DON T VISIT 15 MINUTES OFFICE 23287 ROMAN ROMAN OUTPATIEN 2 2 DON DON T VISIT 15 MINUTES OFFICE 45825 ROMAN ROMAN OUTPATIEN 2 2 DON DON T VISIT 15 MINUTES [facility] - 2 2 [facility] OUT[facility] INC T EMERGENCY 77443 [facility] 2 2 [facility] T VISIT MODERATE SEVERITY EMERGENCY 04485 PREETI ÁLVAREZ 2 2 III [facility] III [facility] T VISIT HIGH/URGE NT SEVERITY OFFICE 50014 ROMAN ROMAN OUTPATIEN 2 2 DON DON T VISIT 15 MINUTES [facility] 2 2 [facility] T EMERGENCY 94629 [facility] HIGH/URGE NT SEVERITY OFFICE 08237 WALDEMARNIRMAL MEDEIROS CONSULTAT 2 2 DOMI DOMI ION NEW/ESTAB PATIENT 60 MIN [facility] 2 2 [facility] T OFFICE 93737 ABEL KITCHENS OUTPATIEN 2 2 DON DON T VISIT 25 MINUTES OFFICE 22762 ROMAN ROMAN OUTPATIEN 2 2 DON DON T VISIT 15 MINUTES EMERGENCY 84925 [facility] 2 2 [facility] INC T VISIT MODERATE SEVERITY [facility] 2 2 [facility] T EMERGENCY 87483 JOSE MARIA MATHUR 2 2 EMERGENCY [facility] T VISIT HIGH/URGE NT SEVERITY EMERGENCY 22013 [facility] 2 2 DEPARTMEN T VISIT MODERATE SEVERITY EMERGENCY 75339 [facility] 2 2 [facility] INC T VISIT MODERATE [facility]VERITY [facility] 2 2 [facility] T OFFICE 17375 ABEL ROMAN OUTPATIEN 2 2 DON DON T VISIT 15 MINUTES EMERGENCY 31508 JOSE MARIA MATHUR 2 2 EMERGENCY [facility] T VISIT HIGH/URGE NT SEVERITY [facility] - 2 2 [facility] T EMERGENCY 64381 [facility] MODERATE SEVERITY EMERGENCY 23548 PREETI ÁLVAREZ 2 2 III JESSEE III JESSEE DEPARTMEN T VISIT HIGH/URGE NT SEVERITY EMERGENCY 07185 [facility]ATE SE[facility]ITY [facility] 2 2 [facility] T OFFICE 81342 ROMAN ROMAN OUTPATIEN 2 2 DON DON T VISIT 15 MINUTES OFFICE 14455 ROMAN ROMAN OUTPATIEN 2 2 DON DON T VISIT 25 MINUTES EMERGENCY 07913 JOSE MARIA MATHUR 2 2 EMERGENCY [facility] DEPARTMEN SERVICES T VISIT HIGH/URGE NT SEVERITY [facility] 2 [facility] INC T EMERGENCY 33956 [facility] 2 2 [facility] DEPARTMEN INC T VISIT MODERATE SEVERITY OFFICE 69363 ROMAN ROMAN OUTPATIEN 2 2 DON DON T VISIT 15 MINUTES EMERGENCY 09989 PREETI ÁLVAREZ 2 2 III JESSEE III [facility] DEPARTMEN T VISIT HIGH/URGE NT SEVERITY EMERGENCY 42436 [facility] 2 2 [facility] DEPARTMEN INC T VISIT MODERATE SEVERITY [facility] - 2 2 [facility] T OFFICE 94959 ROMAN ROMAN OUTPATIEN 2 2 DON DON T VISIT 15 MINUTES OFFICE 31832 ROMAN ROMAN OUTPATIEN 2 2 DON DON T VISIT 15 MINUTES OFFICE 70844 ROMAN ROMAN OUTPATIEN 2 2 DON DON T VISIT 15 MINUTES OFFICE 09827 ROMAN ROMAN OUTPATIEN 2 2 DON DON T VISIT 15 MINUTES OFFICE 44326 ROMAN ROMAN OUTPATIEN 2 2 DON DON T VISIT 15 MINUTES EMERGENCY 96404 JOSE MARIA MATHUR 2 2 EMERGENCY [facility] DEPARTMEN SERVICES T VISIT HIGH/URGE NT SEVERITY OFFICE 56356 ROMAN ROMAN OUTPATIEN 2 2 DON DON T VISIT 15 MINUTES OFFICE 19597 ROMAN ROMAN OUTPATIEN 1 1 DON DON T VISIT 15 MINUTES EMERGENCY 59763 KEVAN MATHUR 1 1 [facility] LACEY DEPARTMEN T VISIT HIGH/URGE NT SEVERITY EMERGENCY 45171 [facility] 1 1 [facility] DEPARTMEN INC T VISIT LOW/MODER SEVERITY [facility] - 1 1 [facility] OUTPATIEN INC T OFFICE 95747 ROMAN ROMAN OUTPATIEN 1 1 DON DON T VISIT 15 MINUTES OFFICE 84702 ROAMN ROMAN OUTPATIEN 1 1 DON DON T VISIT 15 MINUTES OFFICE 82887 ROAMN ROMAN OUTPATIEN 1 1 DON DON T VISIT 15 MINUTES EMERGENCY 76656 [facility] 1 1 [facility] DEPARTMEN INC T VISIT HIGH/URGE NT SEVERITY [facility] - 1 1 [facility] OUTPATIEN INC T EMERGENCY 34784 JOSE MARIA MORTON 1 1 EMERGENCY DEPARTMEN SERVICES T VISIT HIGH/URGE NT SEVERITY EMERGENCY 90108 [facility] 1 1 [facility] T VISIT MODERATE SEVERITY [facility] - 1 1 [facility] T OFFICE 66780 ROMAN ROMAN OUTPATIEN 1 1 DON DON T VISIT 15 MINUTES [facility] 1 [facility] T EMERGENCY 61893 JOSE MARIA MATHUR DEPT 1 1 EMERGENCY [facility] VISIT SERVICES HIGH SEVERITY& THREAT FUNCJ EMERGENCY 63466 [facility] 1 1 [facility] T VISIT MODERATE SEVERITY OFFICE 56577 [facility] ROMAN OUTPATIEN 1 1 DON DON T VISIT 15 MINUTES OFFICE 77173 [facility] ROMAN OUTPATIEN 1 1 DON DON T VISIT 25 MINUTES OFFICE 87620 [facility] OUTPATIEN 1 1 DON DON T VISIT 15 MINUTES [facility] 1 [facility] T EMERGENCY 33979 [facility] 1 1 [facility] T VISIT LOW/MODER SEVERITY OFFICE 81333 [facility] OUTPATIEN 1 1 DON DON T VISIT 15 MINUTES [facility] T EMERGENCY 97349 [facility] 1 1 [facility] DEPARTMEN [facility] T VISIT LOW/MODER SEVERITY EMERGENCY 99369 JOSE MARIA ÁLVAREZ DEPT 1 1 EMERGENCY III [facility] VISIT SERVICES HIGH SEVERITY& THREAT FUN OFFICE 12976 [facility] ROMAN OUTPATIEN 1 1 DON DON T VISIT 15 MINUTES [facility] 1 1 [facility] T EMERGENCY 90164 [facility] 1 1 [facility] DEPARTMEN INC T VISIT LOW/MODER SEVERITY EMERGENCY 49940 JOSE MARIA MATHUR 1 1 EMERGENCY [facility] DEPARTMEN SERVICES T VISIT HIGH/URGE NT SEVERITY EMERGENCY 33524 JOSE MARIA MATHUR 1 1 EMERGENCY [facility] SERVICES T VISIT HIGH/URGE NT SEVERITY [facility] 1 [facility] T OFFICE 51873 ROMAN ROMAN OUTPATIEN 1 1 DON DON T VISIT 15 MINUTES [facility] T [facility] T OFFICE 77734 [facility] ROMAN OUTPATIEN 1 1 DON DON T VISIT 15 MINUTES OFFICE 75454 [facility] ROMAN OUTPATIEN 1 1 DON DON T VISIT 15 MINUTES OFFICE 07507 ABEL ROMAN OUTPATIEN 0 0 DON DON T VISIT 15 MINUTES [facility] T EMERGENCY 62738 [facility] 0 0 [facility] T VISIT LOW/MODER SEVERITY EMERGENCY 65955 JOSE MARIA ÁLVAREZ 0 0 EMERGENCY III [facility] DEPARTMEN SERVICES T VISIT MODERATE SEVERITY [facility] T EMERGENCY 23948 JOSE MARIA LINDSEY DEPT 0 0 EMERGENCY [facility] VISIT SERVICES HIGH SEVERITY& THREAT FUNCJ EMERGENCY 96447 [facility] 0 0 [facility] T VISIT MODERATE SEVERITY OFFICE 96408 ABEL ROMAN OUTPATIEN 0 0 DON DON T VISIT 15 MINUTES EMERGENCY 77130 JOSE MARIA LINDSEY DEPT 0 0 EMERGENCY [facility] VISIT SERVICES HIGH SEVERITY& THREAT FUNCJ EMERGENCY 30882 [facility] 0 0 [facility] T VISIT HIGH/URGE NT SEVERITY EMERGENCY 54386 JOSE MARIA LINDSEY DEPT 0 0 EMERGENCY [facility] VISIT SERVICES HIGH SEVERITY& THREAT FUN [facility] - [facility] T OFFICE 98228 DIOP DIOP OUTPATIEN 0 0 [facility] T VISIT 25 MINUTES EMERGENCY 67265 JOSE MARIA CHAPMAN 0 0 EMERGENCY [facility] DEPARTMEN SERVICES T VISIT MODERATE SEVERITY EMERGENCY 56056 [facility] 0 0 [facility] T VISIT LIMITED/M [facility] PR[facility] - [facility] T OFFICE 58022 ABEL KITCHENS OUTPATIEN 0 0 DON DON T VISIT 15 MINUTES OFFICE 36582 ABEL ROMAN OUTPATIEN 0 0 DON DON T VISIT 15 MINUTES EMERGENCY 50124 [facility] 0 0 [facility] T VISIT LIMITED/M [facility] T EMERGENCY 35659 [facility] 0 0 [facility] T VISIT LIMITED/M INOR PROB EMERGENCY 54996 JOSE MARIA MORTON 0 0 EMERGENCY DEPARTMEN SERVICES T VISIT HIGH/URGE NT SEVERITY [facility] T EMERGENCY 34613 [facility] 0 0 [facility] T VISIT LIMITED/M INOR PROB [facility] - 0 0 [facility] T EMERGENCY 73961 JOSE MARIA ÁLVAREZ 0 0 EMERGENCY III [facility] H[facility]URGE NT SEVERITY EMERGENCY 04909 JOSE MARIA ÁLVAREZ 0 0 EMERGENCY III [facility]IT HIGH/URGE NT SEVERITY [facility] INC T EMERGENCY 19048 [facility] 0 0 [facility] DEPARTMEN INC T VISIT LOW/MODER SEVERITY EMERGENCY 82537 [facility] 0 0 [facility] DEPARTMEN INC T VISIT LOW/MODER SEVERITY EMERGENCY 37429 JOSE MARIA MATHUR 0 0 [facility] H[facility]/URGE NT SEVERITY [facility] 0 [facility] INC T OFFICE 55353 [place] [facility] PHI CONSULTAT 0 0 MEDICAL ION SERV NEW/ESTAB FOUNDATIO PATIENT 40 MIN EMERGENCY 51800 JOSE MARIA MATHUR 0 0 EMERGENCY [facility] DEPARTMEN SERVICES T VISIT HIGH/URGE NT SEVERITY [facility] 0 [facility] OUT[facility] INC T EMERGENCY 94190 [facility] 0 0 [facility] DEPARTMEN INC T VISIT LIMITED/M INOR PROB EMERGENCY 67610 JOSE MARIA MATHUR, 0 0 EMERGENCY [facility] SERVICES T VISIT HIGH/URGE ASSOCIATE NT S SEVERITY [facility] 0 [facility] OUT[facility]EN INC T EMERGENCY 43074 [facility] 0 0 [facility] DEPARTMEN INC T VISIT LIMITED/M INOR PROB OFFICE 38167 ABEL ROMAN OUTPATIEN 0 0 DON R DON R T VISIT 15 MINUTES [facility] 0 [facility] OUTPATIEN INC T EMERGENCY 05920 JOSE MARIA ÁLVAREZ 0 0 EMERGENCY [facility] SERVICES ANGELIQUE T VISIT HIGH/URGE ASSOCIATE NT S SEVERITY [facility] 0 [facility] OUTPATIEN INC T OFFICE 77777 AB[facility] ROMAN OUTPATIEN 0 0 DON R DON R T VISIT 25 MINUTES EMERGENCY 84473 [facility] 0 0 [facility] DEPARTMEN INC T VISIT LIMITED/M INOR PROB EMERGENCY 35349 JOSE MARIA MATHUR, 0 0 EMERGENCY [facility] SERVICES T VISIT HIGH/URGE ASSOCIATE NT S SEVERITY [facility] 0 [facility] OUTPATIEN INC T EMERGENCY 33347 JOSE MARIA MATHUR, 0 0 EMERGENCY [facility] SERVICES T VISIT MODERATE ASSOCIATE SEVERITY S [facility] 0 [facility] OUTPATIEN INC T EMERGENCY 53386 [facility] 0 0 [facility] DEPARTMEN INC T VISIT LOW/MODER SEVERITY OFFICE 57082 [facility] OUTPATI[facility] 0 0 DON R DON R T VISIT 15 MINUTES EMERGENCY 83530 [facility] 0 0 [facility] DEPARTMEN INC T VISIT MODERATE SEVERITY [facility] 0 0 [facility] T EMERGENCY 38682 JOSE MARIA IRELAND, [address] [facility] SERVICES M T VISIT HIGH[facility]URGE ASSOCIATE NT S SEVERITY [facility] 0 0 [facility] T EMERGENCY 92186 JOSE MARIA MATHUR, 0 0 EMERGENCY [facility] SERVICES T VISIT HIGH/URGE ASSOCIATE NT S SEVERITY EMERGENCY 55066 [facility] 0 0 [facility] T VISIT MODERATE SEVERITY [facility] 0 0 [facility] T EMERGENCY 92794 JOSE MARIA MATHUR, 0 0 EMERGENCY [facility] SERVICES T VISIT HIGH/URGE ASSOCIATE NT S SEVERITY OFFICE 05129 [facility]AN OUTPATIEN 9 9 DON R DON R T VISIT 15 MINUTES EMERGENCY 24363 [facility] 9 9 [facility] DEPARTMEN [facility] T VISIT LIMITED/M INOR PROB [facility] - 9 9 [facility] T EMERGENCY 22159 JOSE MARIA MATHUR, 9 9 EMERGENCY [facility] SERVICES T VISIT HIGH/URGE ASSOCIATE NT S SEVERITY [facility] 9 9 [facility] OUTPATIEN [facility] T EMERGENCY 46014 [facility] 9 9 [facility] DEPARTMEN INC T VISIT MODERATE SEVERITY EMERGENCY 02681 JOSE MARIA MATHUR, 9 9 EMERGENCY [facility] SERVICES T VISIT HIGH/URGE ASSOCIATE NT S SEVERITY EMERGENCY 31175 [facility] 9 9 [facility] DEPARTMEN INC T VISIT LIMITED/M INOR PROB [facility] - 9 9 [facility] OUTPATIEN INC T [facility] 9 9 [facility] OUTPAT[facility] INC T EMERGENCY 35022 JOSE MARIA MATHUR, 9 9 EMERGENCY [facility] SERVICES T VISIT HIGH/URGE ASSOCIATE NT S SEVERITY EMERGENCY 11278 [facility] 9 9 [facility] DEPARTMEN INC T VISIT LIMITED/M INOR PROB OFFICE 53373 ABEL ROMAN OUTPATIEN 9 9 DON R DON R T VISIT 15 MINUTES EMERGENCY 33537 [facility] 9 9 [facility] T VISIT LOW/MODER SEVERITY EMERGENCY 07846 JOSE MARIA MATHUR, 9 9 EMERGENCY [facility] SERVICES T VISIT MODERATE ASSOCIATE SEVERITY S [facility] - 9 9 [facility] T EMERGENCY 68718 [facility] 9 9 [facility] T VISIT LOW/MODER SEVERITY EMERGENCY 29858 JOSE MARIA MATHUR, 9 9 EMERGENCY [facility] SERVICES T VISIT HIGH/URGE ASSOCIATE NT S SEVERITY [facility] - 9 9 [facility] T EMERGENCY 21750 [facility] 9 9 [facility] DEPARTMEN INC T VISIT LIMITED/M INOR PROB [facility] - 9 9 [facility] OUTPATIEN INC T EMERGENCY 74983 JOSE MARIA MATHUR, 9 9 EMERGENCY [facility] SERVICES T VISIT HIGH/URGE ASSOCIATE NT S SEVERITY [facility] 9 9 [facility] OUTPATIEN INC T OFFICE 19216 ABEL ROMAN OUTPATIEN 9 9 DON R DON R T VISIT 15 MINUTES OFFICE 34118 [facility] DIOP CONSULTAT 9 9 DESI FLOYD/ESTAB PATIENT 80 MIN OFFICE 29931 ABEL ROMAN OUTPATIEN 9 9 DON R DON R T VISIT 15 MINUTES EMERGENCY 54102 JOSE MARIA CASTANEDA, [address] [facility] SERVICES T VISIT HIGH/URGE ASSOCIATE NT S SEVERITY EMERGENCY 84820 [facility] 9 9 [facility] DEPART[facility] INC T VISIT LOW/MODER SEVERITY [facility] - 9 9 [facility]PAT[facility]EN INC T EMERGENCY 59086 [facility] 9 9 [facility] DEPARTMEN INC T VISIT LOW/MODER SEVERITY [facility] - 9 9 [facility] INC T EMERGENCY 72057 [facility] 9 9 [facility] T VISIT LIMITED/M INOR PROB EMERGENCY 06965 JOSE MARIA CASTANEDA, DEPT 9 9 EMERGENCY [place] VISIT SERVICES HIGH SEVERITY& ASSOCIATE THREAT S F[facility]J EMERGENCY 13780 JOSE MARIA MATHUR, 9 9 EMERGENCY [facility] SERVICES T VISIT HIGH/URGE ASSOCIATE NT S SEVERITY [facility] 9 9 [facility] T EMERGENCY 88420 [facility] 9 9 [facility] T VISIT LOW/MODER SEVERITY EMERGENCY 65018 JOSE MARIA MATHUR, 9 9 EMERGENCY [facility] SERVICES T VISIT HIGH/URGE ASSOCIATE NT S SEVERITY EMERGENCY 58044 [facility] 9 9 [facility] DEPART[facility] INC T VISIT LIMITED/M INOR PROB [facility] - 9 9 [facility] OUTPATIEN INC T EMERGENCY 50425 [facility] 9 9 [facility] DEPARTMEN INC T VISIT LIMITED/M INOR PROB [facility] - 9 9 [facility] INC T EMERGENCY 55978 JOSE MARIA MATHUR, 9 9 EMERGENCY [facility] SERVICES T VISIT HIGH/URGE ASSOCIATE NT S SEVERITY [facility] 9 9 [facility] OUT[facility] INC T EMERGENCY 93322 [facility] 9 9 [facility] DEPART[facility] INC T VISIT LIMITED/M INOR PROB EMERGENCY 87907 JOSE MARIA MATHUR, 9 9 EMERGENCY [facility] SERVICES T VISIT MODERATE ASSOCIATE SEVERITY S EMERGENCY 72046 JOSE MARIA BOOTH, DEPT 9 9 EMERGENCY [place] [facility] VISIT SERVICES HIGH SEVERITY& ASSOCIATE THREAT S [facility] 9 9 [facility] OUTPAT[facility] INC T EMERGENCY 95161 [facility] 9 9 [facility] DEPART[facility] INC T VISIT LIMITED/M INOR PROB [facility] - 9 9 [facility] INC T EMERGENCY 01761 JOSE MARIA MATHUR, 9 9 EMERGENCY [facility] SERVICES T VISIT MODERATE ASSOCIATE SEVERITY S EMERGENCY 91204 [facility] 9 9 [facility] DEPART[facility] INC T VISIT LOW/MODER SEVERITY EMERGENCY 07334 [facility] 9 9 [facility] DE[facility] INC T VISIT LIMITED/M INOR PROB [facility] - 9 9 [facility] INC T EMERGENCY 75993 JOSE MARIA MATHUR, 9 9 EMERGENCY [facility] SERVICES T VISIT MODERATE ASSOCIATE SEVERITY S EMERGENCY 99732 [facility] 9 9 [facility] DEPART[facility] INC T VISIT LOW/MODER SEVERITY EMERGENCY 30529 JOSE MARIA MATHUR, 9 9 [facility] MODERATE ASSOCIATE SEVERITY S [facility] 9 9 [facility] INC T EMERGENCY 24500 JOSE MARIA MATHUR, 9 9 [facility] T [facility]ISIT HIGH/URGE ASSOCIATE NT S [facility] - 9 9 [facility] OUT[facility] INC T EMERGENCY 84939 [facility] 9 9 [facility] DEPARTMEN INC T VISIT LOW/MODER SEVERITY EMERGENCY 85643 JOSE MARIA MATHUR, 9 9 EMERGENCY [facility] SERVICES T VISIT HIGH/URGE ASSOCIATE NT S SEVERITY EMERGENCY 32184 [facility] 9 9 [facility] DEPART[facility] INC T VISIT MODERATE SEVERITY [facility] 9 9 [facility] T [facility] 9 9 [facility] OUT[facility] INC T EMERGENCY 72300 JOSE MARIA MATHUR, 9 9 EMERGENCY [facility] SERVICES T VISIT HIGH/URGE ASSOCIATE NT S SEVERITY EMERGENCY 66617 [facility] 9 9 [facility] DEPART[facility] INC T VISIT LIMITED/M INOR PROB [facility] - 9 9 [facility] OUTPAT[facility] INC T EMERGENCY 17889 [facility] 9 9 [facility] DEPARTMEN INC T VISIT LIMITED/M INOR PROB EMERGENCY 67049 JOSE MARIA COLEMAN, 9 9 [facility] T VISIT MODERATE ASSOCIATE SEVERITY S EMERGENCY 73953 [facility] 9 9 [facility] DEPART[facility] INC T VISIT LOW/MODER SEVERITY [facility] - 9 9 [facility] INC T EMERGENCY 55470 JOSE MARIA MATHUR, 9 9 EMERGENCY [facility] SERVICES T VISIT MODERATE ASSOCIATE SEVERITY S EMERGENCY 33871 [facility] 9 9 [facility] DEPART[facility] INC T VISIT LIMITED/M INOR PROB [facility] - 9 9 [facility] OUTPAT[facility] INC T EMERGENCY 92207 JOSE MARIA MATHUR, 9 9 EMERGENCY [facility] SERVICES T VISIT MODERATE ASSOCIATE SEVERITY S [facility] 9 9 [facility]PAT[facility] INC T EMERGENCY 69929 [facility] 9 9 [facility] DEPART[facility] INC T VISIT LIMITED/M INOR PROB EMERGENCY 41570 JOSE MARIA MATHUR, 9 9 EMERGENCY [facility] SERVICES T VISIT HIGH/URGE ASSOCIATE NT S SEVERITY EMERGENCY 07371 JOSE MARIA MATHUR, 9 9 EMERGENCY [facility] SERVICES T VISIT HIGH/URGE ASSOCIATE NT S SEVERITY EMERGENCY 44624 [facility] 9 9 [facility] DE[facility] INC T VISIT MODERATE SEVERITY [facility] 9 9 [facility] OUTPAT[facility] INC T EMERGENCY 82778 JOSE MARIA MATHUR, 9 9 EMERGENCY [facility] T VISIT HIGH/URGE ASSOCIATE NT S SEVERITY [facility] 9 9 [facility] OUTPAT[facility] INC T EMERGENCY 98222 [facility] 9 9 [facility] DEPART[facility] INC T VISIT MODERATE SEVERITY [facility] - 9 9 [facility] OUTPAT[facility]EN INC T EMERGENCY 01898 [facility] 9 9 [facility] DEPART[facility] INC T VISIT LIMITED/M INOR PROB EMERGENCY 85370 JOSE MARIA CASTANEDA, [address] [facility] SERVICES T VISIT MODERATE ASSOCIATE SEVERITY S [facility] 9 9 [facility] INC T EMERGENCY 97029 [facility] 9 9 [facility] DEPART[facility] INC T VISIT MODERATE SEVERITY EMERGENCY 07382 JOSE MARIA MATHUR, DEPT 9 9 EMERGENCY [facility] VISIT SERVICES HIGH SEVERITY& ASSOCIATE THREAT S FUNCJ OFFICE 16410 ABEL ROMAN OUTPATIEN 9 9 DON R DON R T VISIT 15 MINUTES [facility] 9 9 [facility] OUTPATIEN INC T EMERGENCY 93678 [facility] 9 9 [facility] DEPARTMEN INC T VISIT LOW/MODER SEVERITY OFFICE 48075 ABEL ROMAN OUTPATIEN 9 9 DON R DON R T VISIT 15 MINUTES [facility] - 9 9 [facility] INC T EMERGENCY 86854 LUCHO MATHUR, 9 9 [facility] T VISIT ON MODERATE SEVERITY EMERGENCY 71893 [place] 9 9 [facility] DEPART[facility] INC T VISIT LOW/MODER SEVERITY [facility] - 9 9 [facility] INC T EMERGENCY 70761 [facility] 9 9 [facility] T VISIT LOW/MODER SEVERITY EMERGENCY 51735 LUCHO MATHUR, 9 9 [facility] T VISIT ON MODERATE SEVERITY EMERGENCY 72711 [facility] 9 [facility]/M [facility] PROB [facility] - 9 9 [facility] OUT[facility] INC T EMERGENCY 15353 LUCHO CASTANEDA, 9 9 [facility] T VISIT ON MODERATE SEVERITY OFFICE 47198 ABEL ROMAN OUTPATIEN 9 9 DON R DON R T VISIT 15 MINUTES EMERGENCY 57854 [facility] 9 9 [facility]IGH/URGE NT SEVERITY EMERGENCY 83372 LUCHO MATHUR, DEPT 9 9 [facility] VISIT CORPORATI HIGH ON SEVERITY& THREAT [facility] - 9 9 [facility] INC T EMERGENCY 62637 [facility] 8 8 [facility] T VISIT LOW/MODER SEVERITY EMERGENCY 70483 LU[facility] MATHUR[facility] 8 8 [facility] T VISIT ON MODERATE SEVERITY [facility] - 8 8 [facility] OUTPATIEN INC T OFFICE 55027 ABEL ROMAN OUTPATIEN 8 8 DON R DON R T VISIT 15 MINUTES EMERGENCY 26483 [facility] 8 8 [facility] DEPART[facility] INC T VISIT HIGH/URGE NT SEVERITY [facility] - 8 8 [facility]PAT[facility]EN INC T EMERGENCY 59154 [facility] 8 8 [facility] DEPARTMEN INC T VISIT LIMITED/M INOR PROB [facility] - 8 8 [facility] INC T [facility] 8 8 [facility]EN [facility] T EMERGENCY 26563 [facility] 8 8 [facility] DEPARTMEN [facility] T VISIT LIMITED/M INOR PROB OFFICE 63918 ABEL ROMAN OUTPATIEN 8 8 DON R DON R T VISIT 15 MINUTES [facility] - 8 8 [facility] INC T EMERGENCY 05529 [facility] 8 8 [facility] DEPARTMEN INC T VISIT LOW/MODER SEVERITY OFFICE 09793 [facility] OUTPATIEN 8 8 DON R DON R T VISIT 15 MINUTES OFFICE 95458 [facility] OUTPATIEN 8 8 DON R DON R T VISIT 15 MINUTES OFFICE 96218 AB[facility] ROMAN OUTPATIEN 8 8 DON R DON R T VISIT 15 MINUTES EMERGENCY 13517 [facility] 8 8 [facility] DEPART[facility] INC T VISIT LOW/MODER SEVERITY [facility] - 8 8 [facility] OUTPATIEN INC T EMERGENCY 84467 [facility] 8 8 [facility] DEPART[facility] INC T VISIT LIMITED/M INOR PROB [facility] - 8 8 [facility] INC T EMERGENCY 25726 [facility] 8 8 [facility] DEPARTMEN INC T VISIT LOW/MODER SEVERITY [facility] 8 8 [facility] 31734 [facility] OUTPATI[facility] 8 8 DON R DON R T VISIT 15 MINUTES EMERGENCY 75147 [facility] 8 8 [facility] T VISIT MODERATE SEVERITY [facility] 8 8 [facility] 23804 AB[facility] ROMAN OUTPATIEN 8 8 DON R DON R T VISIT 15 MINUTES EMERGENCY 24998 [facility] 8 8 [facility] T VISIT LIMITED/M INOR PROB [facility] - [address] [facility] T EMERGENCY 70468 [facility] CASTANEDA, 8 8 [facility] T VISIT PROF SERV LOW/MODER SEVERITY OFFICE 83880 AB[facility] ROMAN OUTPATIEN 8 8 DON R DON R T VISIT 25 MINUTES [facility] 8 8 [facility] 00949 [facility] 8 8 [facility] T VISIT LOW/MODER SEVERITY
--- OUTSIDE RECORDS SUMMARY | 2017-06-11 01:14 | External Medical Summary Rpt ---
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 FRYMAN 4 PHYSICIAN EUG INFLUENZA S GROUP BLOOD 01655 L[facility] MCKOY COUNT 4 [facility] COMPLETE INC INC AUTO&AUTO DIFRNTL WBC COMPREHEN 01901 [facility] MCKOY SIVE 4 [facility] METABOLIC INC INC PANEL APPL 26305 LEELEE MCKOY MODALITY 4 [facility] 1/> AREAS INC INC ELEC STIMJ UNATTENDE D APPL 59553 LEELEE MCKOY MODALITY 4 [facility] 1/> AREAS INC INC ULTRASOUN D EA 15 MIN APPLICATI 86023 LEE[facility] MCKOY ON 4 [facility] MODALITY INC INC 1/> AREAS HOT/COLD PACKS INJECTION J2550 [facility] KEVAN 4 PHYSICIAN LACEY PROMETHAZ S GROUP INE HCL UP TO 50 MG THERAPEUT 06167 [facility] KEVAN IC 4 PHYSICIAN LACEY PROPHYLAC S GROUP TIC/DX INJECTION SUBQ/IM APPL 34023 LEE[facility]E MCKOY MODALITY 4 [facility] 1/> AREAS INC INC ELEC STIMJ UNATTENDE D APPLICATI 16911 [facility] MCKOY ON 4 [facility] MODALITY INC INC 1/> AREAS HOT/COLD PACKS APPL 07707 LEELEE MCKOY MODALITY 4 [facility] 1/> AREAS INC INC ULTRASOUN D EA 15 MIN THERAPEUT 39742 LEE[facility] MCKOY IC PX 1/> 4 [facility] AREAS INC INC EACH 15 MIN EXERCISES THERAPEUT 48575 LEELEE MCKOY IC PX 1/> 4 [facility] AREAS INC INC EACH 15 MIN EXERCISES APPL 13635 LEELE[facility] MCKOY MODALITY 4 [facility] 1/> AREAS INC INC ULTRASOUN D EA 15 MIN APPLICATI 07338 [facility] MCKOY ON 4 [facility] MODALITY INC INC 1/> AREAS HOT/COLD PACKS APPL 31398 LEELEE MCKOY MODALITY 4 [facility] 1/> AREAS INC INC ELEC STIMJ UNATTENDE D APPL 74192 LEELEE MCKOY MODALITY 4 [facility] 1/> AREAS INC INC ELEC STIMJ UNATTENDE D APPLICATI 45951 LEE[facility] MCKOY ON 4 [facility] MODALITY INC INC 1/> AREAS HOT/COLD PACKS APPL 78501 LEELEE MCKOY MODALITY 4 [facility] 1/> AREAS INC INC ULTRASOUN D EA 15 MIN THERAPEUT 78010 LEELEE MCKOY IC PX 1/> 4 [facility] AREAS INC INC EACH 15 MIN EXERCISES THERAPEUT 45002 LEELEE MCKOY IC PX 1/> 4 [facility] AREAS INC INC EACH 15 MIN EXERCISES APPL 08458 LEELEE MCKOY MODALITY 4 [facility] 1/> AREAS INC INC ULTRASOUN D EA 15 MIN APPLICATI 34619 LEELEE MCKOY ON 4 [facility] MODALITY INC INC 1/> AREAS HOT/COLD PACKS APPL 72076 LEELEE MCKOY MODALITY 4 [facility] 1/> AREAS INC INC ELEC STIMJ UNATTENDE D APPL 65922 LEELEE MCKOY MODALITY 4 [facility] 1/> AREAS INC INC ELEC STIMJ UNATTENDE D APPLICATI 12773 LEELEE MCKOY ON 4 [facility] MODALITY INC INC 1/> AREAS HOT/COLD PACKS APPL 91659 LEELEE MCKOY MODALITY 4 [facility] 1/> AREAS INC INC ULTRASOUN D EA 15 MIN THERAPEUT 11151 LEELEE MCKOY IC PX 1/> 4 [facility] AREAS INC INC EACH 15 MIN EXERCISES THERAPEUT 62107 LEELEE MCKOY IC PX 1/> 4 [facility] AREAS INC INC EACH 15 MIN EXERCISES APPL 56909 LEELEE MCKOY MODALITY 4 [facility] 1/> AREAS INC INC ULTRASOUN D EA 15 MIN APPLICATI 93944 LEELEE MCKOY ON 4 [facility] MODALITY INC INC 1/> AREAS HOT/COLD PACKS APPL 56555 LEELEE MCKOY MODALITY 4 [facility] 1/> AREAS INC INC ELEC STIMJ UNATTENDE D APPL 89764 LEELEE MCKOY MODALITY 4 [facility] 1/> AREAS INC INC ELEC STIMJ UNATTENDE D APPLICATI 22989 LEE[facility]E MCKOY ON 4 [facility] MODALITY INC INC 1/> AREAS HOT/COLD PACKS THERAPEUT 71424 LEELEE MCKOY IC PX 1/> 4 [facility] AREAS INC INC EACH 15 MIN EXERCISES PHYSICAL 51503 LEELEE MCKOY THERAPY 4 [facility] EVALUATIO INC INC N RADEX 29968 [place] IZAIAH SPINE 4 MEDICAL MARCELLE LUMBOSACR IMAGING AL ASS MINIMUM 4 VIEWS THERAPEUT 07554 A C ISHANLA IC 4 RUIZ BOUDREAUX PROPHYLAC PSC TIC/DX INJECTION SUBQ/IM CULTURE 41926 QUEST QUEST BACTERIAL 4 DIAGNOSTI DIAGNOSTI CS QUANTTATI VE COLONY COUNT URINE URINLS 92907 A C ISHANLA DIP 4 RUIZ BOUDREAUX STICK/TAB PSC LET REAGNT NON-AUTO MICRSCPY THERAPEUT 79344 [facility] KEVAN IC 4 PHYSICIAN LACEY PROPHYLAC S GROUP TIC/DX INJECTION SUBQ/IM INJECTION J1885 [facility] KEVAN 4 PHYSICIAN LACEY KETOROLAC S GROUP TROMETHAM INE PER 15 MG INJECTION J1200 [facility] KEVAN 4 PHYSICIAN LACEY DIPHENHYD S GROUP RAMINE HCL UP TO 50 MG INJECTION J2550 [facility] KEVAN 4 PHYSICIAN LACEY PROMETHAZ S GROUP INE HCL UP TO 50 MG BLOOD 76163 MELCHOR A MELCHOR A COUNT 4 COMPLETE AUTO&AUTO DIFRNTL WBC BLOOD 55571 LEELEE MCKOY OCCULT 4 [facility] PEROXIDAS INC INC E ACTV QUAL FECES 1-3 SPEC SMR PRIM 87419 LEELEE MCKOY SRC 4 [facility] GRAM/GIEM INC INC SA STAIN BCT FUNGI/LIAM L GLUCOSE 35547 FIELD AMB FIELD AMB QUANTITAT 4 GAETANO BLOOD XCPT REAGENT STRIP BLOOD 99091 [facility] COUNT 4 MED CTR, MED CTR, COMPLETE ATTN: ATTN: AUTO&AUT[place] [address] [facility] THYROID 4 MED CTR, MED CTR, STIMULATI ATTN: ATTN: NG DENE DENE HORMONE TSH COMPREHEN 94505 [facility] SIVE 4 MED CTR, MED CTR, METABOLIC ATTN: ATTN: PANEL DENE DENE THERAPEUT 88340 [facility] CHELO IC 4 CONRAD CONRAD PROPHYLAC TIC/DX INJECTION SUBQ/IM INJECTION J2550 CHELO CHELO 4 CONRAD CONRAD PROMETHAZ INE HCL UP TO 50 MG INJECTION J1200 CHE[facility] CHELO 4 CONRAD CONRAD DIPHENHYD RAMINE HCL UP TO 50 MG INJECTION J1885 CHEOL CHELO 4 CONRAD CONRAD KETOROLAC TROMETHAM INE PER 15 MG INJECTION J1030 KILPELA KILPELA 4 JEA JEA METHYLPRE DNISOLONE ACETATE 40 MG INJ J0702 KILPELA KILPELA BETAMETHA 4 JEA JEA SONE ACETATE & PHOSPHATE 3 MG THERAPEUT 20443 KILPELA KILPELA IC 4 JEA JEA PROPHYLAC TIC/DX INJECTION SUBQ/IM THERAPEUT 38599 KILPELA KILPELA IC 4 JEA JEA PROPHYLAC TIC/DX INJECTION SUBQ/IM INJ J0702 KILPELA KILPELA BETAMETHA 4 JEA JEA SONE ACETATE & PHOSPHATE 3 MG INJECTION J1030 KILPELA KILPELA 4 JEA JEA METHYLPRE DNISOLONE ACETATE 40 MG INJECTION J2550 [facility] THOMAS SEFERINO 4 PROMETHAZ INE HCL UP TO 50 MG INJECTION J1885 [facility] THOMAS SEFERINO 4 KETOROLAC TROMETHAM INE PER 15 MG THERAPEUT 86885 [facility]TH[facility] YEECK SEFERINO IC 4 PROPHYLAC TIC/DX INJECTION SUBQ/IM THERAPEUT 74192 FIELD AMB FIELD AMB IC 4 PROPHYLAC TIC/DX INJECTION SUBQ/IM INJECTION J1885 FIELD AMB FIELD AMB 4 KETOROLAC TROMETHAM INE PER 15 MG NONINVASI 16829 FIELD AMB FIELD AMB VE 4 EAR/PULSE OXIMETRY SINGLE DETER INJECTION J1040 [facility]THA THOMAS SEFERINO 3 METHYLPRE DNISOLONE ACETATE 80 MG THERAPEUT 43175 [facility]A THOMAS SEFERINO IC 3 PROPHYLAC TIC/DX INJECTION SUBQ/IM INJECTION J1885 [facility]TH[facility] THOMAS SEFERINO 3 KETOROLAC TROMETHAM INE PER 15 MG THERAPEUT 25256 FIELD AMB FIELD AMB IC 3 PROPHYLAC TIC/DX INJECTION SUBQ/IM IIV3 07382 FIELD AMB FIELD AMB VACCINE 3 SPLIT VIRUS 0.5 ML DOSAGE IM USE IM ADM 96210 FIELD AMB FIELD AMB PRQ ID 3 SUBQ/IM NJXS 1 VACCINE INJ J0702 FIELD AMB FIELD AMB BETAMETHA 3 SONE ACETATE & PHOSPH[place] 3 [place] [address] NADIRA SOLOE PAT SURG 3 PATHOLOGY GROSS&LACEY ROSCOPIC EXAM EGD 94705 [place] ROJAS STEVE TRANSORAL 3 MEDICAL BIOPSY SERV SINGLE/MU FOUNDATIO LTIPLE N SPECIAL 03724 NADIRA SOLOE PAT STAIN 3 GROUP 1 MICROORGA NISMS I&R SPCL STN 68946 NADIRA DIAS NADIRA PAT 2 I&R 3 EXCPT MICROORG/ ENZYME/IM CYT CUL 18421 [facility]EE[facility]E LEELEE PRSMPTV 3 [facility] PTHGNC INC INC ORGANISMS SCR DNS CHART ANES 78104 NATALIO LANCE UPPER GI 3 CONRAD CONRAD ENDOSCOPY PROXIMAL TO DUODENUM THERAPEUT 06115 FIELD AMB FIELD AMB IC 3 PROPHYLAC TIC/DX INJECTION SUBQ/IM INJECTION J1885 FIELD AMB FIELD AMB 3 KETOROLAC TROMETHAM INE PER 15 MG BLOOD 94173 A C MELCHOR A COUNT 3 RUIZ GARRETT COMPLETE PSC AUTO&AUTO DIFRNTL WBC COLLECTIO 50110 A C MELCHOR A N VENOUS 3 RUIZ GARRE[place] [address] LEELEE MCKOY AMYLASE 3 [place] [address] LEELEE MCKOY GAMMAGLOB 3 [facility] ULIN IGA INC INC IGD IGG IGM EACH BLOOD 68221 LEELE[facility] MCKOY COUNT 3 [facility] COMPLETE INC INC AUTO&AUTO DIFRNTL WBC SMR PRIM 85160 LEELEE MCKOY SRC 3 [facility] GRAM/GIEM INC INC SA STAIN BCT FUNGI/LIAM L FLUORESCE 91033 LEE[facility]E MCKOY NT 3 [facility] NONNFCT INC INC AGT ANTB TITER EA ANTIBODY OVA&JULIO C 56821 LEELEE MCKOY ITES 3 [facility] DIRECT INC INC SMEARS CONCENTRA TION & ID COMPREHEN 32872 [facility]EE[facility]E MCKOY SIVE 3 [facility] [place] [address] LEELEE MCKOY LIPASE 3 [place] [address] LEELEE MCKOY CLOSTRIDI 3 [facility] [place] [address] LEELEE MCKOY GIARDIA 3 [facility] INC INC CUL BACT 43601 LEELEE MCKOY STOOL 3 [facility] AEROBIC INC INC ISOL SALMONELL A&SHIGELL THERAPEUT 78607 FAMILY FAMILY IC 3 CARE CARE PROPHYLAC ASSOCIATE ASSOCIATE TIC/DX S S INJECTION SUBQ/IM INJECTION J2550 FAMILY FAMILY 3 CARE CARE PROMETHAZ ASSOCIATE ASSOCIATE INE HCL S S UP TO 50 MG BLOOD 79181 FAMILY FAMILY COUNT 3 CARE CARE COMPLETE ASSOCIATE ASSOCIATE AUTO&AUTO S S DIFRNTL WBC ARTHROCEN 42385 PETTEY PETTEY TESIS 3 JAM JAM ASPIR&/IN J MAJOR JT/BURSA W/O US INJ J0702 PETTEY PETTEY BETAMETHA 3 JAM JAM SONE ACETATE & PHOSPHATE 3 MG RADIOLOGI 28059 ABEL ROMAN C 3 DON DON EXAMINATI ON KNEE 1/2 VIEWS LIPID 74960 COMBINED COMBINED PANEL 3 PHYSICIAN PHYSICIAN S LA S LA COMPREHEN 09831 COMBINED COMBINED SIVE 3 PHYSICIAN PHYSICIAN METABOLIC S LA S LA PANEL HEMOGLOBI 38871 COMBINED COMBINED N 3 PHYSICIAN PHYSICIAN GLYCOSYLA S LA S LA CLAIRE A1C ARTHROCEN 15438 PETTEY PETTEY TESIS 3 JAM JAM ASPIR&/IN J MAJOR JT/BURSA W/O US INJ J0702 PETTEY PETTEY BETAMETHA 3 JAM JAM SONE ACETATE & PHOSPHATE 3 MG THERAPEUT 96513 LEELEE MCKOY IC PX 1/> 3 [facility] AREAS INC INC EACH 15 MIN EXERCISES THERAPEUT 91826 LEELEE MCKOY IC PX 1/> 3 [facility] AREAS INC INC EACH 15 MIN EXERCISES PHYSICAL 98820 LEELEE MCKOY THERAPY 3 [facility] EVALUATIO INC INC N INJ J0702 PETTEY PETTEY BETAMETHA 3 JAM JAM SONE ACETATE & PHOSPHATE 3 MG ARTHROCEN 55790 PETTEY PETTEY TESIS 3 JAM JAM ASPIR&/IN J MAJOR JT/BURSA W/O US RADEX 34116 IZAIAH IZAIAH SHOULDER 3 MARCELLE MARCELLE COMPLETE MINIMUM 2 VIEWS IAADIADOO 16165 ABEL ROMAN 3 DON DON INFLUENZA BLOOD 16811 [facility] M[facility] COUNT 2 [facility] COMPLETE INC INC AUTO&[place] [address] [facility]EE[facility] MCK[facility] AMYLASE 2 [facility] INC INC INJECTION J2405 [facility] MCKOY 2 [facility] ONDANSETR INC INC ON HCL PER 1 MG COMPREHEN 84234 [facility] SIVE 2 [facility] [place] [address] LEELEE MCKOY INFUSION 2 [facility] THERAPY/P INC INC ROPHYLAXI S /DX 1ST TO 1 HR THERAPEUT 51022 [facility] M[facility] IC 2 [facility] INJECTION INC [place] [address] [facility] MCK[facility] LIPASE 2 [facility] INC INC URINE 27154 [facility] MCKOY 2 [facility] TEST INC INC VISUAL COLOR CMPRSN METHS CHEMODNRV 01380 [facility] TJ MUSC 2 DOMI DOMI MUSC INNERVATE D FACIAL NRV UNIL CHEMODENE 23077 [facility] RVATION 2 DOMI DOMI NECK MUSCLE BOTULINUM J0585 [facility] TOXIN 2 DOMI DOMI TYPE A PER UNIT IAADIADOO 55446 ABEL KITCHENS 2 DON DON STREPTOCO CCUS GROUP A IAADIADOO 70991 ABEL MIHENS 2 DON DON STREPTOCO CCUS GROUP A IAADIADOO 75323 ROMAN ROMAN 2 DON DON STREPTOCO CCUS GROUP A URNLS DIP 42424 ABEL KITCHENS 2 DON DON STICK/TAB LET RGNT NON-AUTO W/O MICRSCP URNLS DIP 58862 ROMAN ROMAN 2 DON DON STICK/TAB LET RGNT NON-AUTO W/O MICRSCP URNLS DIP 69336 ABEL KITCHENS 2 DON DON STICK/TAB LET RGNT NON-AUTO W/O MICRSCP URNLS DIP 33618 ABEL MIHENS 2 DON DON STICK/TAB LET RGNT NON-AUTO W/O MICRSCP URNLS DIP 65794 ABEL KITCHENS 2 DON DON STICK/TAB LET RGNT NON-AUTO W/O MICRSCP URNLS DIP 09502 ROMAN ROMAN 2 DON DON STICK/TAB LET RGNT NON-AUTO W/O MICRSCP URNLS DIP 52609 [facility] MCKOY 2 [facility] STICK/TAB INC INC LET REAGENT AUTO MICROSCOP Y HEMOGLOBI 52132 COMBINED COMBINED N 2 PHYSICIAN PHYSICIAN MISTIA S LA S LA CLAIRE A1C CHEMODENE 73053 [facility] RVATION 2 DOMI DOMI NECK MUSCLE CHEMODNRV 21978 [facility] TJ MUSC 2 DOMI DOMI MUSC INNERVATE D FACIAL NRV UNIL CHEMODENE 84356 [facility] RVATION 2 DOMI DOMI ECCRINE GLANDS OTH AREA PER DAY THERAPEUT 30287 [facility] M[facility]OY IC 2 [facility] PROPHYLAC INC INC TIC/DX INJECTION SUBQ/[place] [address] [facility]EE[facility] MCKOY LIPASE 2 [facility] INC INC COMPREHEN 43605 [facility] MCKOY SIVE 2 [facility] [place] [address] LEELEE LABONE INFUSION 2 [facility] 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 THERAPY/P INC ROPHYLAXI S /DX 1ST TO 1 HR THERAPEUT 22869 [facility] MCKOY IC 2 [facility] INJECTION INC [place] [address] LEE[facility]E MCKOY AMYLASE 2 [facility] INC INC BLOOD 54070 [facility]EE[facility] MCKOY COUNT 2 [facility] COMPLETE INC INC AUTO&AUTO DIFRNTL WBC SCREENING G0202 [place] IZAIAH 2 MEDICAL MARCELLE MAMMOGRAP IMAGING HY YOLANDA ASS INCL CAD WHEN PERFORMD COMPUTER- 65815 [place]ZA[place] AIDED 2 MEDICAL MARCELLE DETECTION IMAGING ASS SCREENING MAMMOGRAP HY CYTP 46971 QUEST QUEST SLIDES 2 DIAGNOSTI DIAGNOSTI CERV/VAG CS CS MNL SCRN PHYSICIAN SUPV BLOOD 38714 ROMAN ROMAN OCCULT 2 DON DON PEROXIDAS E ACTV QUAL FECES 1 DETER THERAPEUT 79175 [facility] MCKOY IC 2 [facility] PROPHYLAC INC INC TIC/DX INJECTION SUBQ/IM URNLS DIP 95286 ROMAN ROMAN 2 DON DON STICK/TAB LET RGNT NON-AUTO W/O MICRSCP FIBRIN 05883 [facility]EELEE MCKOY DGRADJ 2 [facility] PRODUCTS INC INC D-DIMER QUAL/SEMI [place] THERAPEUT 35564 LEELEE MCKOY IC 2 [facility] PROPHYLAC INC INC TIC/DX INJECTION SUBQ/IM THERAPEUT 73366 [facility]EE[facility] MCKOY IC 2 [facility] PROPHYLAC INC INC TIC/DX INJECTION SUBQ/IM BLOOD 81856 [facility] MCKOY COUNT 2 [facility] COMPLETE INC INC AUTO&AUTO DIFRNTL WBC URNLS DIP 12874 LEELEE LEELEE 2 [facility] STICK/TAB INC INC LET REAGENT AUTO MICROSCOP Y BASIC 52282 LEELEE MCKOY METABOLIC 2 [facility] PANEL INC INC CALCIUM TOTAL THERAPEUT 15590 [facility]EE[facility]E MCKOY IC 2 [facility] PROPHYLAC INC INC TIC/[place] INJECTION SUBQ/[place] [address] LEELEE MCKOY INFUSION 1 [facility] THERAPY/P INC INC ROPHYLAXI S /DX 1ST TO 1 HR BLOOD 63201 [facility] MCKOY COUNT 1 [facility] COMPLETE INC INC AUTO&AUTO DIFRNTL WBC BASIC 38247 LEELEE MCKOY METABOLIC 1 [facility] PANEL INC INC CALCIUM TOTAL URNLS DIP 05612 LEELEE LEELEE 1 [facility] STICK/TAB INC INC LET REAGENT AUTO MICROSCOP Y OPHTH 70026 SALLY BHAGAT MEDICAL 1 VISION XM&EVAL COMPRE NEW PT 1/> VST COMPUTERI 76343 SALLY BHAGAT ZED 1 VISION OPHTHALMI C IMAGING OPTIC NERVE SEDIMENTA 68461 LEELEE MCKOY TION RATE 1 [facility] RBC INC INC NON-AUTOM ATED COMPREHEN 09730 [facility]EE[facility] MCKOY SIVE 1 [facility] [place] [address] GAVIN BLISS HEAD/BRAI 1 MEDICAL MARCELLE N W/O IMAGING CONTRAST ASS MATERIAL BLOOD 31857 [facility] MCKOY COUNT 1 [facility] COMPLETE INC INC AUTO&AUTO DIFRNTL WBC 3D 25902 GAVIN BLISS RENDERING 1 MEDICAL MARCELLE W/INTERP IMAGING & ASS POSTPROCE SS SUPERVISI ON URNLS DIP 03877 LEELEE LEELEE 1 [facility] STICK/TAB INC INC LET REAGENT AUTO MICROSCOP Y URNLS DIP 11047 LEELEE MONTEMAYORON 1 [facility] STICK/TAB INC INC LET REAGENT AUTO MICROSCOP Y BLOOD 88380 LEELEE MKCOY COUNT 1 [facility] COMPLETE INC INC AUTO&[place] [address] LEELEE MCKOY AMYLASE 1 [facility] INC INC COMPREHEN 44736 LEELEE MCKOY SIVE 1 [facility] [address] LEELEE MCKOY LIPASE 1 [facility] INC INC COMPREHEN 48741 LEELEE MCKOY SIVE 1 [facility] METABOLIC INC INC PANEL BLOOD 57553 LEELEE MCKOY COUNT 1 [facility] COMPLETE INC INC AUTO&AUTO DIFRNTL WBC URNLS DIP 30327 LEELEE MONTEMAYORON 1 [facility] STICK/TAB INC INC LET REAGENT AUTO MICROSCOP Y PHYSICAL 76207 LEELEE MCKOY THERAPY 1 [facility] EVALUATIO INC INC N THERAPEUT 53260 LEELEE MCKOY IC PX 1/> 1 [facility] AREAS INC INC EACH 15 MIN EXERCISES APPL 72512 LEELEE MCKOY MODALITY 1 [facility] 1/> AREAS INC INC ELEC STIMJ UNATTENDE D APPLICATI 49843 LEELEE MCKOY ON 1 [facility] MODALITY INC INC 1/> AREAS HOT/COLD PACKS RADEX 65625 GAVIN CARLINUTCHER SPINE 1 MEDICAL MARCELLE CERVICAL IMAGING 4 OR 5 ASS VIEWS RADEX 30605 LEELEE MCKOY SPINE 1 [facility] CERVICAL INC INC 6 OR MORE VIEWS IAADIADOO 12--201 30931 ABEL KITCHENS 0 DON [place] [address] [place] IZA[place] HEAD/BRAI 0 MEDICAL MARCELLE N W/O IMAGING CONTRAST ASS MATERIAL 3D 05829 LEELEE MCKOY RENDERING 0 [facility] W/INTERP INC INC & POSTPROCE SS SUPERVISI ON INITIAL 28522 SNEHAL ROJAS STEVE INPATIENT 0 MEDICAL CONSULT SERV NEW/ESTAB FOUNDATIO PT 55 MIN OBSERVATI 21475 ABEL ROMAN ON CARE 0 DON DON DISCHARGE MANAGEMEN T INITIAL 34002 ABEL ROMAN OBSERVATI 0 DON DON ON CARE/DAY 50 MINUTES RADEX ABD 35316 [place] FAIZAN COMPL 0 MEDICAL JOSIE AQT ABD IMAGING W/S/E/D ASS VIEWS 1 VIEW CH RADEX ABD 96263 [place] FAIZAN COMPL 0 MEDICAL JOSIE AQT ABD IMAGING W/S/E/D ASS VIEWS 1 VIEW CH COMPREHEN 77934 [facility] M[facility]OY SIVE 0 [facility] [place] [address] LEELEE MCKOY LIPASE 0 [facility] [place] [address] LEELEE MCKOY AMYLASE 0 [facility] INC INC BLOOD 08617 [facility] MCKOY COUNT 0 [facility] COMPLETE INC INC AUTO&AUTO DIFRNTL WBC URINE 87730 LEELEE MCKYO 0 [facility] TEST INC INC VISUAL COLOR CMPRSN METHS URNLS DIP 41821 LEELEE MCKOY 0 [facility] STICK/TAB INC [place] [address] LEELEE MCKOY INFUSION 0 [facility] THERAPY/P INC INC ROPHYLAXI S /DX 1ST TO 1 HR SUSCEPTIB 62002 LEELEE MCKOY LTY STDY 0 [facility] ANTIMICRB INC INC IAL MICRO/AGA R DILUTJ INCISION 34823 JOSE MARIA ÁLVAREZ & 0 EMERGENCY III JESSEE DRAINAGE SERVICES ABSCESS COMPLICAT ED/MULTIP LE CUL BACT 19979 [facility]E MCKOY XCPT 0 [facility] URINE INC INC BLOOD/STO OL AEROBIC ISOL CUL BACT 63851 LEELEE MCKOY AEROBIC 0 [facility] ADDL INC INC METHS DEFINITIV E EA ISOL OTH 8604 LEELEE MCKYO INCISION 0 [facility] W/DRAINAG INC INC E SKIN&SUBC UTANEOUS TISSUE 3D 13179 SOLANGE C IZAIAH RENDERING 0 IZAIAH MARCELLE W/INTERP & POSTPROCE SS SUPERVISI ON MRI 11924 SOLANGE C IZAIAH SPINAL 0 IZAIAH MARCELLE CANAL LUM[place] W/[place] [address] GAVIN IZAIAH, RETROPERI 0 MEDICAL SOLANGE TONEAL IMAGING REAL TIME ASSOCIATE W/IMAGE S COMPLETE CUL BACT 55227 [facility] AEROBIC 0 [facility] ADDL INC INC METHS DEFINITIV E EA ISOL 3D 51025 GAVIN IZAIAH, RENDERING 0 MEDICAL SOLANGE IMAGING W/INTERP& ASSOCIATE POSTPROC S DIFF WORK STATION CUL BACT 71841 [facility] XCPT 0 [facility] URINE INC INC BLOOD/STO OL AEROBIC ISOL CT PELVIS 92107 GAVIN IZAIAH, W/O 0 MEDICAL SOLNAGE CONTRAST IMAGING MATERIAL ASSOCIATE S COMPREHEN 75919 [facility] SIVE 0 [facility] METABOLIC INC INC PANEL INCISION 70208 JOSE MARIA ÁLVAREZ & 0 EMERGENCY III, DRAINAGE SERVICES ANGELIQUE GAXIOLA COMPLICAT ASSOCIATE ED/[place] [address] [facility] LIPASE 0 [facility] INC INC SUSCEPTIB 98704 LEELEE MCKOY LTY STDY 0 [facility] ANTIMICRB INC INC IAL [place] [address] ELELEE MCKOY INFUSION 0 [facility] THERAPY/P INC INC ROPHYLAXI S /DX 1ST TO 1 HR BLOOD 20379 LEELEE MCKOY COUNT 0 [facility] COMPLETE INC INC AUTO&[place] [address] GAVIN IZAIAH, ABDOMEN 0 MEDICAL SOLANGE W/O IMAGING [place] [address] [facility] M[facility] AMYLASE 0 [facility] INC INC URNLS DIP 38770 [facility] MCKOY 0 [facility] STICK/TAB INC INC LET REAGENT AUTO MICROSCOP Y OTH 8604 LEE[facility]E MCKOY INCISION 0 [facility] W/DRAINAG INC INC E SKIN&SUBC UTANEOUS TISSUE RADEX 00944 ROMNA, ROMAN, SPINE 0 DON R DON R LUMBOSACR AL MINIMUM 4 [place] [address] LEELEE MCK[facility] STREPTOCO 0 [facility] [place] [address] LEELEE MCKOY INFUSION 0 [facility] THERAPY/P INC INC ROPHYLAXI S /DX 1ST TO 1 HR URNLS DIP 77429 [facility] MCKOY 0 [facility] STICK/TAB INC INC LET REAGENT AUTO MICROSCOP Y CULTURE 88404 LEE[facility]E MCKOY BACTERIAL 0 [facility] INC INC QUANTTATI VE COLONY COUNT URINE COMPREHEN 93665 LEELEE MCKOY SIVE 9 [facility] METABOLIC INC INC PANEL URNLS DIP 89396 [facility] MCKOY 9 [facility] STICK/TAB INC INC LET REAGENT AUTO MICROSCOP Y BLOOD 84649 LEELEE MCKOY COUNT 9 [facility] COMPLETE INC INC AUTO&AUTO DIFRNTL WBC IAADI 60899 LEELEE MCKOY INFLUENZA 9 [facility] B VIRUS INC INC IAADI 68484 LEELEE MCKOY INFFLUENZ 9 [facility] A A VIRUS INC INC RADEX 58497 LEELEE MCKOY HAND 9 [facility] MINIMUM [address] [place] [address] GAVIN BLISS, HEAD/BRAI 9 MEDICAL SOLANGE N W/O IMAGING CONTRAST ASSOCIATE MATERIAL S 3D 53861 LEELEE MONTEMAYORON RENDERING 9 [facility] W/INTERP INC INC & POSTPROCE SS SUPERVISI ON URNLS DIP 94147 L[facility]E MCKOY 9 [facility] STICK/TAB INC INC LET REAGENT AUTO MICROSCOP Y URNLS DIP 11489 [facility] MCKOY 9 [facility] STICK/TAB INC INC LET REAGENT AUTO MICROSCOP Y COMPREHEN 27385 LEELEE LEELEE SIVE 9 [facility] METABOLIC INC INC PANEL ECG 52841 LEELEE MICH, ROUTINE 9 [facility] ECG HOSPITAL W/LEAST PROF SERV 12 LDS I&R ONLY RHYTHM 85907 LEELEE LEELEE ECG 1-3 9 [facility] LEADS INC INC TRACING ONLY W/O I&R ECG 86238 LEELEEJOSEFINA MCKOY ROUTINE 9 [facility] ECG INC INC W/LEAST 12 LDS TRCG ONLY W/[place] [address] LEELEE MCKOY INFUSION 9 [facility] THERAPY/P INC INC ROPHYLAXI S /DX 1ST TO 1 HR BLOOD 77758 LEELEE MCKOY COUNT 9 [facility] COMPLETE INC INC AUTO&AUTO DIFRNTL WBC CULTURE 34898 LEELEE MCKOY BACTERIAL 9 [facility] INC INC QUANTTATI VE COLONY COUNT URINE URNLS DIP 80043 LEELEE MCKOY 9 [facility] STICK/TAB INC INC LET REAGENT AUTO MICROSCOP Y URNLS DIP 59844 LEE[facility]E MCKOY 9 [facility] STICK/TAB INC INC [place] [address] LEELEE MCKOY LIPASE 9 [facility] INC INC COMPREHEN 06782 LEELEE MCKOY SIVE 9 [facility] METABOLIC INC INC PANEL BLOOD 34727 LEELEE MCKOY COUNT 9 [facility] COMPLETE INC INC AUTO&[place] [address] LEELEE MCKOY AMYLASE 9 [place] [address] LEELEE MCKOY INFUSION 9 [facility] THERAPY/P INC INC ROPHYLAXI S /DX 1ST TO 1 HR COMPREHEN 41269 LEELEE MCKOY SIVE 9 [facility] METABOLIC INC INC PANEL URNLS DIP 66292 LEELEE MCKOY 9 [facility] STICK/TAB INC INC LET REAGENT AUTO MICROSCOP Y BLOOD 85359 LEELEE MCKOY COUNT 9 [facility] COMPLETE INC INC AUTO&AUTO DIFRNTL WBC BLOOD 52674 LEELEE MCKOY COUNT 9 [facility] COMPLETE INC INC AUTO&[place] [address] LEELEE MCKOY AMYLASE 9 [facility] INC INC RADEX ABD 28619 LEELEE MCKOY COMPL 9 [facility] AQT ABD INC INC W/S/E/D VIEWS 1 VIEW CH COMPREHEN 98283 LEELEE MCKOY SIVE 9 [facility] [address] [facility] LIPASE 9 [place] [address] [facility]FUSION [facility] THERAPY/P INC INC ROPHYLAXI S /DX 1ST TO 1 HR URNLS DIP 33156 [facility]EJOSEFINA MCKOY 9 [facility] STICK/TAB INC INC LET REAGENT AUTO MICROSCOP Y URNLS DIP 20256 ABEL ROMAN, 9 DON R DON R STICK/TAB LET RGNT NON-AUTO W/O MICRSCP 3D 53886 [place] IZAIAH, RENDERING 9 MEDICAL SOLANGE IMAGING W/INTERP& ASSOCIATE POSTPROC S DIFF WORK STATION CT PELVIS 28018 [facility] BLISS, W/O 9 MEDICAL SOLANGE CONTRAST IMAGING MATERIAL ASSOCIATE S URNLS DIP 59931 [facility]SEFINA MCKOY [facility] STICK/TAB INC INC LET REAGENT AUTO MICROSCOP Y COMPREHEN 83330 [facility] SIVE [facility] [address] [facility] MCK[facility] LIPASE 9 [place] [address] [facility] AMYLASE 9 [facility] INC INC BLOOD 19721 [facility] COUNT [facility] COMPLETE INC INC AUTO&[place] [address] [facility] ABDOMEN 9 [facility] W/O INC INC CONTRAST MATERIAL RADEX 97415 [facility] ANKLE 8 [facility] COMPLETE INC INC MINIMUM 3 VIEWS RADEX 56080 [facility] FAIZAN, FOOT 8 MEDICAL ZOË P COMPLETE IMAGING MINIMUM 3 ASSOCIATE VIEWS S BLOOD 88801 [facility] COUNT 8 [facility] COMPLETE INC INC AUTO&AUTO DIFRNTL WBC RADEX 84260 [facility] SPINE 8 [facility] LUMBOSACR INC INC AL MINIMUM [address] PELVIS 70595 [facility] M[facility] W/O & 8 [facility] W/CONTRAS INC INC T MATERIAL RADIOLOGI 06176 [facility] C [facility] EXAMINATI INC INC ON PELVIS 1/2 VIEWS 3D 57589 [facility] IZAIAH, RENDERING 8 MEDICAL SOLANGE IMAGING W/INTERP& ASSOCIATE POSTPROC S DIFF WORK STATION URNLS DIP 60486 [facility] STICK/TAB [place] [address] LEELEEJOSEFINA MONTEMAYORON ABDOMEN 8 [facility] W/O & INC INC W/CONTRAS T MATERIAL BASIC 27219 [facility] METABOLIC 8 [facility] PANEL INC INC CALCIUM TOTAL URNLS DIP 22674 ABEL ROMAN 8 DON R DON R STICK/TAB LET RGNT NON-AUTO W/O MICRSCP IAADI 12815 [facility] INFFLUENZ 8 [facility] A A VIRUS INC INC IAADI 16080 [facility] INFLUENZA 8 [facility] B VIRUS INC INC IAADIADOO 64499 ABEL ROMAN 8 DON R DON R STREPTOCO CCUS GROUP A COMPREHEN 31418 [facility] SIVE 8 [facility] METABOLIC INC INC PANEL BLOOD 34218 [facility] COUNT 8 [facility] COMPLETE INC INC [place] [address] [facility] THER 8 [facility] PROPH/DX INC INC 1ST >1 HR URNLS DIP 71816 [facility] STICK/TAB INC INC LET REAGENT AUTO MICROSCOP Y IAADIADOO 19263 ABEL ROMAN, 8 DON R DON R STREPTOCO CCUS GROUP A Encounters Encounter Start End Date Code Location Performer Type Date OFFICE 38585 TWIN CUEVAS 7 7 PHYSICIAN T VISIT PRACTICE 25 L MINUTES OFFICE 77422 [facility] CUEVAS 7 7 [facility] T VISIT 5 INC MINUTES [facility]PATIEN [facility] T [facility] OUTPATIEN INC T EMERGENCY 24073 KRISTINA MATHUR 7 7 PHYSICIAN [facility] T VISIT HIGH/URGE NT SEVERITY EMERGENCY 70192 [facility] 7 7 [facility] DEPARTMEN INC T VISIT LOW/MODER SEVERITY OFFICE 09050 [facility] CUEVAS 7 7 [facility] T VISIT 5 INC MINUTES [facility] OUTPATIEN INC T OFFICE 76930 LAK[place] CUEVAS 7 7 T VISIT 15 MINUTES OFFICE 28350 [place] CUEVAS 7 7 T VISIT 15 MINUTES OFFICE 53911 [place] CUEVAS 7 7 T VISIT 25 MINUTES EMERGENCY 58449 KRISTINA BARRERA 7 7 PHYSICIAN [facility] T VISIT MODERATE SEVERITY OFFICE 28240 [place] CUEVAS 7 7 T VISIT 15 MINUTES EMERGENCY 39564 KRISTINA MATHUR 7 7 PHYSICIAN [facility] T VISIT HIGH/URGE NT SEVERITY OFFICE 97539 LAK[place]MI CUEVAS 6 6 T VISIT 15 MINUTES OFFICE 74110 [place] CUEVAS 6 6 SADIQ SADIQ T VISIT 15 MINUTES OFFICE 52369 ARNOLD ARNOLD OUTPATIEN 6 6 SADIQ SADIQ T VISIT 15 MINUTES OFFICE 17066 LAK[facility]MI MARTINS OUTPATIEN 6 6 SADIQ SADIQ T NEW 30 MINUTES OFFICE 50801 [facility] LA OUTPATIEN 6 6 PHYSICIAN DOMI T VISIT S GROUP 15 MINUTES [facility] - [facility] 6 [facility] T [facility] - [facility] 6 [facility] OUTPATIEN INC T OFFICE 46402 [facility] [place] OUTPATIEN 6 6 PHYSICIAN T VISIT GROUP 25 MINUTES INITIAL 32721 [facility] CHASITYPEL PREVENTIV 6 6 PHYSICIAN DOMI E S GROUP MEDICINE NEW PATIENT 40-64YRS OFFICE 59088 IVONE PAYNE OUTPATIEN 6 6 MD MARY, T VISIT PSC 25 MINUTES [facility] - 6 6 [facility] OUTPATIEN INC T OFFICE 40069 [facility] KEVAN OUTPATIEN 6 6 PHYSICIAN LACEY T VISIT S GROUP 15 MINUTES OFFICE 97135 [facility] K[facility]AN OUTPATIEN 6 6 PHYSICIAN LACEY T VISIT S GROUP 15 MINUTES [facility] - 6 6 [facility] OUTPATIEN INC T [facility] - 6 6 [facility] OUTPATIEN INC T OFFICE 24590 [facility] K[facility]AN OUTPATIEN 6 6 PHYSICIAN LACEY T VISIT S GROUP 15 MINUTES OFFICE [address] [facility] [address] OUTPATIEN 6 6 PHYSICIAN T VISIT S GROUP 15 MINUTES OFFICE 33128 [facility] K[facility] OUTPATIEN 6 6 PHYSICIAN LACEY T VISIT S GROUP 10 MINUTES [facility] - 6 6 [facility] OUTPATIEN INC [facility] - 6 6 N OUTPATIEN COMMUNTIY T HOSPITA OFFICE 58973 [place] MARIOESPE OUTPATIEN 6 6 ORTHOPEDI JEFF T VISIT C 15 ASSOCIAT MINUTES OFFICE [address] [facility] [address] OUTPATIEN 6 6 PHYSICIAN T VISIT S GROUP 15 MINUTES [facility] [place] - 6 6 [facility] T OFFICE 28944 [place] WAESPE OUTPATIEN 6 6 ORTHOPEDI JEFF T NEW 45 C MINUTES ASSOCIAT OFFICE 46146 [facility] K[facility]AN OUTPATIEN 6 6 PHYSICIAN LACEY T VISIT S GROUP 15 MINUTES OFFICE [address] [facility] [address] OUTPATIEN 6 6 PHYSICIAN T VISIT S GROUP 10 MINUTES OFFICE 59424 [facility] K[facility]AN OUTPATIEN 5 5 PHYSICIAN LACEY T VISIT S GROUP 15 MINUTES EMERGENCY 75314 [facility] 5 5 [facility] DEPARTMEN INC T VISIT LOW/MODER SEVERITY EMERGENCY 05733 KRISTINA KEVAN 5 5 PHYSICIAN LACEY DEPARTMEN S, PLLC T VISIT HIGH/URGE NT SEVERITY [facility] - 5 5 [facility] OUTPATIEN INC T OFFICE 52527 [facility] OUTPATIEN 5 5 PHYSICIAN LACEY T VISIT S GROUP 10 MINUTES OFFICE 27186 [facility] K[facility] OUTPATIEN 5 5 PHYSICIAN LACEY T VISIT S GROUP 15 MINUTES OFFICE 79569 [facility] PETTEY OUTPATIEN 5 5 PHYSICIAN JAM T VISIT S GROUP 15 MINUTES OFFICE 31209 [facility] K[facility] OUTPATIEN 5 5 PHYSICIAN LACEY T VISIT S GROUP 10 MINUTES [facility] - 5 5 [facility] OUTPATIEN INC T OFFICE 12883 [facility] OUTPATIEN 5 5 PHYSICIAN LACEY T VISIT S GROUP 10 MINUTES EMERGENCY 13884 KRISTINA KEVAN 5 5 PHYSICIAN LACE[facility] DEPARTMEN S, PLLC T VISIT MODERATE SEVERITY OFFICE 80876 IVONE MARY ANJ OUTPATIEN 5 5 MD MARY, T NEW 30 PSC MINUTES OFFICE 98177 [facility] OUTPATIEN 5 5 [facility] T VISIT INC 10 MINUTES [facility] - 5 5 [facility] OUTPATIEN INC T OFFICE 01570 [facility] K[facility] OUTPATIEN 5 5 PHYSICIAN LACEY T VISIT S GROUP 10 MINUTES OFFICE 56664 [place] MARGUERITE ANT OUTPATIEN 5 5 MEDICAL T VISIT SERV 25 FOUNDATIO MINUTES N OFFICE 18071 [facility] K[facility] OUTPATIEN 5 5 PHYSICIAN LACEY T VISIT S GROUP 15 MINUTES OFFICE 69963 [facility] K[facility] OUTPATIEN 5 5 PHYSICIAN LACEY T VISIT S GROUP 15 MINUTES EMERGENCY 75495 KRISTINA KEVAN 5 5 PHYSICIAN [facility]ACE[facility] DEPARTMEN S, PLLC T VISIT MODERATE SEVERITY OFFICE 56252 [facility] K[facility] OUTPATIEN 5 5 PHYSICIAN LACEY T VISIT S GROUP 10 MINUTES OFFICE 81633 [facility] OUTPATIEN 5 5 PHYSICIAN LACEY T VISIT S GROUP 10 MINUTES OFFICE 46122 A C YAMIL GABY OUTPATIEN 5 5 RUIZ GARRETT T VISIT PSC 15 MINUTES OFFICE 42804 [facility] FRYMAN OUTPATIEN 5 5 PHYSICIAN EUG T VISIT S GROUP 15 MINUTES OFFICE 88336 [facility] OUTPATIEN 5 5 PHYSICIAN LACEY T VISIT S GROUP 25 MINUTES OFFICE 38260 A C KILPELA OUTPATIEN 5 5 RUIZ GARRETT JEZrui T VISIT PSC 15 MINUTES OFFICE 38239 A C KEMIPELA OUTPATIEN 5 5 RUIZ GARRETT JEZuri T VISIT PSC 15 MINUTES OFFICE 24217 [facility] OUTPATIEN 5 5 PHYSICIAN LACEY T VISIT S GROUP 15 MINUTES OFFICE 24091 [facility] OUTPATIEN 5 5 PHYSICIAN LACEY T VISIT S GROUP 15 MINUTES OFFICE 13138 [facility] OUTPATIEN 5 5 PHYSICIAN LACEY T VISIT S GROUP 10 MINUTES OFFICE 37218 [facility] FRYMAN OUTPATIEN 5 5 PHYSICIAN EUG T VISIT S GROUP 15 MINUTES OFFICE 38528 [facility] FRYMAN OUTPATIEN 4 4 PHYSICIAN EUG T VISIT S GROUP 15 MINUTES OFFICE 71715 [facility] K[facility]AN OUTPATIEN 4 4 PHYSICIAN LACEY T VISIT S GROUP 10 MINUTES EMERGENCY 80437 [facility] 4 4 [facility] DEPARTMEN INC T VISIT LOW/MODER SEVERITY EMERGENCY 71463 LOBO CORNELL 4 4 [facility] T VISIT PHYS HIGH/URGE NT SEVERITY [facility] - 4 4 [facility] OUTPATIEN INC T OFFICE 96135 [facility] OUTPATIEN 4 4 PHYSICIAN LACEY T VISIT S GROUP 15 MINUTES OFFICE 59941 [facility] OUTPATIEN 4 4 PHYSICIAN LACEY T VISIT S GROUP 15 MINUTES [facility] - 4 4 [facility] OUTPATIEN INC T OFFICE 19350 [facility] K[facility] OUTPATIEN 4 4 PHYSICIAN LACEY T VISIT S GROUP 10 MINUTES [facility] - 4 4 [facility] OUTPATIEN INC T [facility] - 4 4 [facility] OUTPATIEN INC T OFFICE 54418 [facility] K[facility] OUTPATIEN 4 4 PHYSICIAN LACEY T VISIT S GROUP 15 MINUTES EMERGENCY 13237 LOBO MATHUR 4 4 CLARIBEL LACEY DEPARTMEN EMERGENCY T VISIT PHYS MODERATE SEVERITY OFFICE 49272 Zuri CUEVAS 4 4 RUIZ GARRETT JEZuri T VISIT PSC 15 MINUTES OFFICE 49530 A C KILPELA OUTPATIEN 4 4 RUIZ GARRETT JEZuri T VISIT PSC 15 MINUTES EMERGENCY 66430 [facility] KEVAN 4 4 CLARIBEL LACEY DEPARTMEN EMERGENCY T VISIT PHYS HIGH/URGE NT SEVERITY OFFICE 77544 A C KILPELA OUTPATIEN 4 4 RUIZ GARRETT JEZuri T VISIT PSC 15 MINUTES OFFICE 86522 A C FIELD AMB OUTPATIEN 4 4 RUIZ GARRETT T VISIT PSC 15 MINUTES OFFICE 99559 [facility] K[facility] OUTPATIEN 4 4 PHYSICIAN LACEY T VISIT S GROUP 15 MINUTES OFFICE 68249 RUIZ Keating OUTPATIEN 4 4 T VISIT 15 MINUTES OFFICE 72493 KILPELA KILPELA OUTPATIEN 4 4 JEA JEA T VISIT 15 MINUTES [facility] 4 [facility] OUTPATIEN INC T EMERGENCY 87356 KEVAN MATHUR 4 4 LACEY LACEY DEPARTMEN T VISIT MODERATE SEVERITY OFFICE 31229 FIELD AMB FIELD AMB OUTPATIEN 4 4 T VISIT 15 MINUTES OFFICE 44313 FIELD AMB FIELD AMB OUTPATIEN 4 4 T VISIT 15 MINUTES OFFICE 11822 KILPELA KILPELA OUTPATIEN 4 4 JEA JEA T VISIT 15 MINUTES [facility] [place] [facility] 4 [facility], ATTN: DENE OFFICE 94162 FIELD AMB FIELD AMB OUTPATIEN 4 4 T VISIT 15 MINUTES OFFICE 46424 FIELD AMB FIELD AMB OUTPATIEN 4 4 T VISIT 15 MINUTES OFFICE 93899 FIELD AMB FIELD AMB OUTPATIEN 4 4 T VISIT 15 MINUTES OFFICE 91337 CHELO CHELO OUTPATIEN 4 4 CONRAD CONRAD T VISIT 15 MINUTES OFFICE 75077 FIELD AMB FIELD AMB OUTPATIEN 4 4 T VISIT 15 MINUTES OFFICE 24164 KILPELA KILPELA OUTPATIEN 4 4 JEA JEA T VISIT 15 MINUTES OFFICE 45887 FIELD AMB FIELD AMB OUTPATIEN 4 4 T VISIT 15 MINUTES OFFICE 40840 KILPELA KILPELA OUTPATIEN 4 4 JEA JEA T VISIT 15 MINUTES OFFICE 38225 MARTHA THOMAS SEFERINO OUTPATIEN 4 4 T VISIT 15 MINUTES OFFICE 94352 KILPELA KILPELA OUTPATIEN 4 4 JEA JEA T VISIT 15 MINUTES OFFICE 48723 ROJAS STEVE ROJAS STEVE OUTPATIEN 4 4 T VISIT 15 MINUTES OFFICE 34357 FIELD AMB FIELD AMB OUTPATIEN 4 4 T VISIT 15 MINUTES OFFICE 08448 MARTHA GENTILE OUTPATIEN 3 3 T VISIT 15 MINUTES OFFICE 21557 SANTANA SANTANA CONSULTAT 3 3 MEJIA MEJIA ION NEW/ESTAB PATIENT 40 MIN OFFICE 54447 ROJAS STEVE ROJAS STEVE OUTPATIEN 3 3 T VISIT 25 MINUTES OFFICE 65142 FIELD AMB FIELD AMB OUTPATIEN 3 3 T VISIT 15 MINUTES [facility] - 3 3 [facility] OUTPATIEN INC T OFFICE 80126 FIELD AMB FIELD AMB OUTPATIEN 3 3 T VISIT 15 MINUTES OFFICE 30934 KILPELA KILPELA OUTPATIEN 3 3 JEA JEA T VISIT 15 MINUTES OFFICE 81673 WALDEMAR WALDEMAR OUTPATIEN 3 3 DOMI DOMI T VISIT 25 MINUTES OFFICE 74752 FIELD AMB FIELD AMB OUTPATIEN 3 3 T VISIT 15 MINUTES OFFICE 13653 Zuri MENENDEZ OUTPATIEN 3 3 RUIZ BOUDREAUX T VISIT PSC 15 MINUTES OFFICE 72559 Zuri Keating OUTPATIEN 3 3 RUIZ GARRETT T VISIT PSC 15 MINUTES [facility] - 3 3 [facility] OUTPATIEN INC T OFFICE 37096 ROJAS STEVE ROJAS STEVE CONSULTAT 3 3 ION NEW/ESTAB PATIENT 60 MIN OFFICE 46986 ROMAN ROMAN OUTPATIEN 3 3 DON DON T VISIT 15 MINUTES OFFICE 24844 ROMAN ROMAN OUTPATIEN 3 3 DON DON T VISIT 15 MINUTES OFFICE 81466 FAMILY OUTPATIEN 3 3 CARE T VISIT ASSOCIATE 15 S MINUTES OFFICE 92028 ROMAN ROMAN OUTPATIEN 3 3 DON DON T VISIT 15 MINUTES OFFICE 91159 ROMAN ROMAN OUTPATIEN 3 3 DON DON T VISIT 15 MINUTES OFFICE 79904 ROMAN ROMAN OUTPATIEN 3 3 DON DON T VISIT 25 MINUTES OFFICE 55822 ROMAN ROMAN OUTPATIEN 3 3 DON DON T VISIT 15 MINUTES EMERGENCY 99585 [facility] 3 3 [facility] DEPARTMEN INC T VISIT LOW/MODER SEVERITY [facility] - 3 3 [facility] OUTPATIEN INC T EMERGENCY 07959 PREETI ÁLVAREZ 3 3 III JESSEE III JESSEE DEPARTMEN T VISIT MODERATE SEVERITY OFFICE 45687 PETTEY PETTEY OUTPATIEN 3 3 JAM JAM T VISIT 15 MINUTES [facility] - 3 3 [facility] OUTPATIEN INC T OFFICE 22639 PETTEY PETTEY OUTPATIEN 3 3 JAM JAM T NEW 30 MINUTES [facility] - 3 3 [facility] OUTPATI[facility] INC T OFFICE 34588 ROMAN ROMAN OUTPATIEN 3 3 DON DON T VISIT 15 MINUTES OFFICE 99887 ROMAN ROMAN OUTPATIEN 3 3 DON DON T VISIT 15 MINUTES OFFICE 34086 ROMAN ROMAN OUTPATIEN 3 3 DON DON T VISIT 15 MINUTES OFFICE 75885 ROMAN ORMAN OUTPATIEN 3 3 DON DON T VISIT 15 MINUTES EMERGENCY 32054 JOSE MARIA DE LA ROSA 2 2 EMERGENCY JESSEE DEPARTMEN SERVICES T VISIT HIGH/URGE NT SEVERITY [facility] 2 [facility] OUTPATIEN INC T EMERGENCY 39064 [facility] 2 2 [facility] DEPARTMEN INC T VISIT MODERATE SEVERITY OFFICE 09212 ROMAN ROMAN OUTPATIEN 2 2 DON DON T VISIT 15 MINUTES OFFICE 95327 ROMAN ROMAN OUTPATIEN 2 2 DON DON T VISIT 15 MINUTES OFFICE 58825 ROMAN ROMAN OUTPATIEN 2 2 DON DON T VISIT 15 MINUTES OFFICE 35409 ROMAN ROMAN OUTPATIEN 2 2 DON DON T VISIT 15 MINUTES OFFICE 45351 ROMAN ROMAN OUTPATIEN 2 2 DON DON T VISIT 15 MINUTES [facility] 2 2 [facility] OUTPATIEN INC T EMERGENCY 44094 [facility] 2 2 [facility] DEPARTMEN INC T VISIT LOW/MODER SEVERITY EMERGENCY 39053 JOSE MARIA LINDQUIST 2 2 EMERGENCY DEPARTMEN SERVICES T VISIT MODERATE SEVERITY OFFICE 34368 ROMAN ROMAN OUTPATIEN 2 2 DON DON T VISIT 15 MINUTES EMERGENCY 46978 JOSE MARIA DE LA ROSA 2 2 EMERGENCY [facility] SERVICES T VISIT HIGH/URGE NT SEVERITY EMERGENCY 32753 KEVAN KEVAN 2 2 [facility] T VISIT MODERATE SEVERITY [facility] - 2 2 [facility] OUTPATIEN [facility] T EMERGENCY 83026 [facility] 2 2 [facility] T VISIT LOW/MODER SEVERITY OFFICE 70698 ROMAN ROMAN OUTPATIEN 2 2 DON DON T VISIT 15 MINUTES OFFICE 76346 ROMAN ROMAN OUTPATIEN 2 2 DON DON T VISIT 15 MINUTES EMERGENCY 00412 PREETI ÁLVAREZ 2 2 III JESSEE III [facility] T VISIT HIGH/URGE NT SEVERITY [facility] - 2 2 [facility] 92563 [facility] 2 2 [facility] T VISIT LOW/MODER SEVERITY OFFICE 55015 ROMAN ROMAN OUTPATIEN 2 2 DON DON T VISIT 15 MINUTES OFFICE 32612 ROMAN ROMAN OUTPATIEN 2 2 DON DON T VISIT 15 MINUTES OFFICE 95426 ROMAN ROMAN OUTPATIEN 2 2 DON DON T VISIT 15 MINUTES [facility] - 2 2 [facility] OUTPATIEN INC T EMERGENCY 60438 [facility] 2 2 [facility] T VISIT MODERATE SEVERITY EMERGENCY 48346 PREETI ÁLVAREZ 2 2 III [facility] III [facility] T VISIT HIGH/URGE NT SEVERITY OFFICE 26201 ROMAN ROMAN OUTPATIEN 2 2 DON DON T VISIT 15 MINUTES [facility] - 2 2 [facility] 36217 [facility] 2 2 [facility]IS[facility] HIGH/URGE NT SEVERITY OFFICE 45677 WALDEMARNIRMAL MEDEIROS CONSULTAT 2 2 DOMI DOMI ION NEW/ESTAB PATIENT 60 MIN [facility] - 2 2 [facility] OFF[facility] 83108 ABEL KITCHENS OUTPATIEN 2 2 DON DON T VISIT 25 MINUTES OFFICE 60616 ROMAN ROMAN OUTPATIEN 2 2 DON DON T VISIT 15 MINUTES EMERGENCY 46694 [facility] 2 2 [facility] T VISIT MODERATE SEVERITY [facility] - 2 2 [facility] T EMERGENCY 65590 JOSE MARIA MATHUR 2 2 EMERGENCY [facility] SERVICES T VISIT HIGH/URGE NT SEVERITY EMERGENCY 62624 [facility] 2 2 DEPARTMEN T VISIT MODERATE SEVERITY EMERGENCY 84218 [facility] 2 2 [facility] T VISIT MODERATE SEVERITY [facility] - 2 2 [facility] T OFFICE 87270 ABEL ROMAN OUTPATIEN 2 2 DON DON T VISIT 15 MINUTES EMERGENCY 61559 JOSE MARIA MATHUR 2 2 EMERGENCY [facility] SERVICES T VISIT HIGH/URGE NT SEVERITY [facility] - 2 2 [facility] OUTPATIEN INC T EMERGENCY 24252 [facility] 2 2 [facility] T VISIT MODERATE SEVERITY EMERGENCY 76692 PREETI ÁLVAREZ 2 2 III JESSEE III JESSEE DEPARTMEN T VISIT HIGH/URGE NT SEVERITY EMERGENCY 88613 [facility] 2 2 [facility] VISIT MOD[facility]ATE SEVERITY [facility] - 2 2 [facility] T OFFICE 68278 ROMAN ROMAN OUTPATIEN 2 2 DON DON T VISIT 15 MINUTES OFFICE 08695 ROMAN ROMAN OUTPATIEN 2 2 DON DON T VISIT 25 MINUTES EMERGENCY 33227 JOSE MARIA MATHUR 2 2 EMERGENCY [facility] DEPARTMEN SERVICES T VISIT HIGH/URGE NT SEVERITY [facility] - 2 2 [facility] OUT[facility]EN INC T EMERGENCY 32271 [facility] 2 2 [facility] DEPARTMEN INC T VISIT MODERATE SEVERITY OFFICE 11953 ROMAN ROMAN OUTPATIEN 2 2 DON DON T VISIT 15 MINUTES EMERGENCY 49151 PREETI ÁLVAREZ 2 2 III JESSEE III [facility] DEPARTMEN T VISIT HIGH/URGE NT SEVERITY EMERGENCY 53019 [facility] 2 2 [facility] DEPARTMEN INC T VISIT MODERATE SEVERITY [facility] - 2 2 [facility] OUTPATIEN INC T OFFICE 02495 ROMAN ROMAN OUTPATIEN 2 2 DON DON T VISIT 15 MINUTES OFFICE 93025 ROMAN ROMAN OUTPATIEN 2 2 DON DON T VISIT 15 MINUTES OFFICE 81302 ROMAN ROMAN OUTPATIEN 2 2 DON DON T VISIT 15 MINUTES OFFICE 07019 ROMAN ROMAN OUTPATIEN 2 2 DON DON T VISIT 15 MINUTES OFFICE 03401 ROMAN ROMAN OUTPATIEN 2 2 DON DON T VISIT 15 MINUTES EMERGENCY 61229 JOSE MARIA MATHUR 2 2 EMERGENCY [facility] DEPARTMEN SERVICES T VISIT HIGH/URGE NT SEVERITY OFFICE 65026 ROMAN ROMAN OUTPATIEN 2 2 DON DON T VISIT 15 MINUTES OFFICE 61192 ROMAN ROMAN OUTPATIEN 1 1 DON DON T VISIT 15 MINUTES EMERGENCY 30101 KEVAN MATHUR 1 1 [facility] LACEY DEPARTMEN T VISIT HIGH/URGE NT SEVERITY EMERGENCY 44008 [facility] 1 1 [facility] DEPARTMEN INC T VISIT LOW/MODER SEVERITY [facility] - 1 1 [facility] OUTPATIEN INC T OFFICE 04726 ROMAN ROMAN OUTPATIEN 1 1 DON DON T VISIT 15 MINUTES OFFICE 71232 ROMAN ROMAN OUTPATIEN 1 1 DON DON T VISIT 15 MINUTES OFFICE 16566 ROMAN ROMAN OUTPATIEN 1 1 DON DON T VISIT 15 MINUTES EMERGENCY 32032 [facility] 1 1 [facility] DEPARTMEN INC T VISIT HIGH/URGE NT SEVERITY [facility] - 1 1 [facility] OUTPATIEN INC T EMERGENCY 94863 JOSE MARIA MORTON 1 1 EMERGENCY DEPARTMEN SERVICES T VISIT HIGH/URGE NT SEVERITY EMERGENCY 13541 [facility] 1 1 [facility] DEPARTMEN INC T VISIT MODERATE SEVERITY [facility] - 1 1 [facility] OUTPATIEN INC T OFFICE 38461 ROMAN ROMAN OUTPATIEN 1 1 DON DON T VISIT 15 MINUTES [facility] - 1 1 [facility] OUTPATIEN INC T EMERGENCY 28674 JOSE MARIA MATHUR DEPT 1 1 EMERGENCY [facility] VISIT SERVICES HIGH SEVERITY& THREAT FUNCJ EMERGENCY 55455 LEELEE 1 1 [facility] DEPARTMEN INC T VISIT MODERATE SEVERITY OFFICE 05833 ROM[facility] ROMAN OUTPATIEN 1 1 DON DON T VISIT 15 MINUTES OFFICE 60736 [facility] ROMAN OUTPATIEN 1 1 DON DON T VISIT 25 MINUTES OFFICE 76840 [facility] ROMAN OUTPATIEN 1 1 DON DON T VISIT 15 MINUTES [facility] - 1 1 [facility] OUTPATIEN INC T EMERGENCY 50775 LEELEE 1 1 [facility] DEPARTMEN INC T VISIT LOW/MODER SEVERITY OFFICE 91193 [facility] ROMAN OUTPATIEN 1 1 DON DON T VISIT 15 MINUTES [facility] T EMERGENCY 73965 LEE[place] 1 1 [facility] DEPARTMEN [facility] T VISIT LOW/MODER SEVERITY EMERGENCY 06525 JOSE MARIA ÁLVAREZ DEPT 1 1 EMERGENCY III [facility] VISIT SERVICES HIGH SEVERITY& THREAT FUN OFFICE 01528 ROMAN ROMAN OUTPATIEN 1 1 DON DON T VISIT 15 MINUTES [facility] - 1 1 [facility] INC T EMERGENCY 65735 LEELEE 1 1 [facility] DEPARTMEN INC T VISIT LOW/MODER SEVERITY EMERGENCY 60373 JOSE MARIA MATHUR 1 1 EMERGENCY [facility] DEPARTMEN SERVICES T VISIT HIGH/URGE NT SEVERITY EMERGENCY 84950 JOSE MARIA MATHUR 1 1 EMERGENCY [facility] SERVICES T VISIT HIGH/URGE NT SEVERITY [facility] - 1 1 [facility] OUTPATIEN INC T OFFICE 43141 ROMAN ROMAN OUTPATIEN 1 1 DON DON T VISIT 15 MINUTES [facility] 1 [facility] T [facility] T OFFICE 16956 ROMAN ROMAN OUTPATIEN 1 1 DON DON T VISIT 15 MINUTES OFFICE 63875 ROM[facility] ROMAN OUTPATIEN 1 1 DON DON T VISIT 15 MINUTES OFFICE 55535 ABEL ROMAN OUTPATIEN 0 0 DON DON T VISIT 15 MINUTES [facility] T EMERGENCY 71784 [facility] 0 0 [facility] DEPART[facility] INC T VISIT LOW/MODER SEVERITY EMERGENCY 71323 JOSE MARIA ÁLVAREZ 0 0 EMERGENCY III [facility] DEPARTMEN SERVICES T VISIT MODERATE SEVERITY [facility] T EMERGENCY 18507 JOSE MARIA LINDSEY DEPT 0 0 EMERGENCY [facility] VISIT SERVICES HIGH SEVERITY& THREAT FUNCJ EMERGENCY 42668 [facility] 0 0 [facility] DEPARTMEN INC T VISIT MODERATE SEVERITY OFFICE 85444 ABEL ROMAN OUTPATIEN 0 0 DON DON T VISIT 15 MINUTES EMERGENCY 80131 JOSE MARIA LINDSEY DEPT 0 0 EMERGENCY [facility] VISIT SERVICES HIGH SEVERITY& THREAT FUNCJ EMERGENCY 37036 [facility] 0 0 [facility] T VISIT HIGH/URGE NT SEVERITY EMERGENCY 05615 JOSE MARIA LINDSEY DEPT 0 0 EMERGENCY [facility] VISIT SERVICES HIGH SEVERITY& THREAT FUN [facility] - [facility] 0 [facility] INC T OFFICE 99671 DIOP DIOP OUTPATIEN 0 0 [facility] T VISIT 25 MINUTES EMERGENCY 57985 JOSE MARIA CHAPMAN 0 0 EMERGENCY [facility] DEPARTMEN SERVICES T VISIT MODERATE SEVERITY EMERGENCY 55943 [facility] 0 0 [facility] DEPART[facility] INC T VISIT LIMITED/M [facility] PR[facility] - [facility] T OFFICE 20604 ABEL KITCHENS OUTPATIEN 0 0 DON DON T VISIT 15 MINUTES OFFICE 71024 ABEL ROMAN OUTPATIEN 0 0 DON DON T VISIT 15 MINUTES EMERGENCY 17326 [facility] 0 0 [facility] T VISIT LIMITED/M [facility] - [facility] OUT[facility] INC T EMERGENCY 06934 [facility] 0 0 [facility] DEPART[facility] INC T VISIT LIMITED/M INOR PROB EMERGENCY 27869 JOSE MARIA MORTON 0 0 EMERGENCY DEPARTMEN SERVICES T VISIT HIGH/URGE NT SEVERITY [facility] T EMERGENCY 93226 [facility] 0 0 [facility] DE[facility] INC T VISIT LIMITED/M INOR PROB [facility] - 0 0 [facility] OUTPATIEN INC T EMERGENCY 09441 JOSE MARIA ÁLVAREZ 0 0 [facility] HIGH/URGE NT SEVERITY EMERGENCY 06733 JOSE MARIA ÁLVAREZ 0 0 EMERGENCY III [facility] SERVICES T VISIT HIGH/URGE NT SEVERITY [facility] - 0 0 [facility] OUTPATIEN INC T EMERGENCY 34656 LEELEE 0 0 [facility] DEPARTMEN INC T VISIT LOW/MODER SEVERITY EMERGENCY [id number] [place] 0 0 [facility] DEPARTMEN INC T VISIT LOW/MODER SEVERITY EMERGENCY 94851 JOSE MARIA MATHUR 0 0 [facility] T VISIT HIGH/URGE NT SEVERITY [facility] - 0 0 [facility] OUTPATIEN INC T OFFICE 12341 [place] ZOE PHI CONSULTAT 0 0 MEDICAL ION SERV NEW/ESTAB FOUNDATIO PATIENT 40 MIN EMERGENCY 86041 JOSE MARIA MATHUR 0 0 EMERGENCY [facility] DEPARTMEN SERVICES T VISIT HIGH/URGE NT SEVERITY [facility] 0 [facility] OUTPATIEN INC T EMERGENCY 72016 [facility] 0 0 [facility] DEPARTMEN INC T VISIT LIMITED/M INOR PROB EMERGENCY 35569 JOSE MARIA MATHUR, 0 0 EMERGENCY [facility] SERVICES T VISIT HIGH/URGE ASSOCIATE NT S SEVERITY [facility] 0 [facility] OUTPATIEN INC T EMERGENCY 83147 [facility] 0 0 [facility] DEPARTMEN INC T VISIT LIMITED/M INOR PROB OFFICE 72418 ABEL ROMAN OUTPATIEN 0 0 DON R DON R T VISIT 15 MINUTES [facility] - 0 0 [facility] OUTPATIEN INC T EMERGENCY 98033 JOSE MARIA ÁLVAREZ 0 0 EMERGENCY [facility] SERVICES ANGELIQUE T VISIT HIGH/URGE ASSOCIATE NT S SEVERITY [facility] - 0 0 [facility] OUTPATIEN INC T OFFICE 21127 ABEL ROMAN OUTPATIEN 0 0 DON R DON R T VISIT 25 MINUTES EMERGENCY 89953 [facility] 0 0 [facility] DEPARTMEN INC T VISIT LIMITED/M INOR PROB EMERGENCY 62700 JOSE MARIA MATHUR, 0 0 EMERGENCY [facility] SERVICES T VISIT HIGH/URGE ASSOCIATE NT S SEVERITY [facility] - 0 0 [facility] OUTPATIEN INC T EMERGENCY 79673 JOSE MARIA MATHUR, 0 0 EMERGENCY [facility] SERVICES T VISIT MODERATE ASSOCIATE SEVERITY S [facility] - 0 0 [facility] OUTPATIEN INC T EMERGENCY 31211 [facility] 0 0 [facility] DEPARTMEN INC T VISIT LOW/MODER SEVERITY OFFICE 17652 ABEL ROMAN OUTPATIEN 0 0 DON R DON R T VISIT 15 MINUTES EMERGENCY 14722 [facility] 0 0 [facility] DEPARTMEN INC T VISIT MODERATE SEVERITY [facility] - 0 0 [facility] OUTPATIEN [facility] T EMERGENCY 63985 JOSE MARIA IRELAND, 0 0 EMERGENCY [facility] SERVICES M T VISIT HIGH/URGE ASSOCIATE NT S SEVERITY [facility] - 0 0 [facility] OUTPATIEN [facility] T EMERGENCY 89609 JOSE MARIA MATHUR, 0 0 EMERGENCY [facility] SERVICES T VISIT HIGH/URGE ASSOCIATE NT S SEVERITY EMERGENCY 59243 [facility] 0 0 [facility]IT MODERATE SEVERITY [facility] - 0 0 [facility] OUTPATIEN [facility] T EMERGENCY 09786 JOSE MARIA MATHUR, 0 0 EMERGENCY [facility] SERVICES T VISIT HIGH/URGE ASSOCIATE NT S SEVERITY OFFICE 03811 ABEL ROMAN OUTPATIEN 9 9 DON R DON R T VISIT 15 MINUTES EMERGENCY 39964 [facility] 9 9 [facility] DEPARTMEN [facility] T VISIT LIMITED/M INOR PROB HOSPITAL [facility] - 9 9 [facility] OUTPATIEN [facility] T EMERGENCY 99373 JOSE MARIA MATHUR, 9 9 EMERGENCY [facility] SERVICES T VISIT HIGH/URGE ASSOCIATE NT S SEVERITY [facility] - 9 9 [facility] OUTPATIEN [facility] T EMERGENCY 10825 [facility] 9 9 [facility] DEPARTMEN INC T VISIT MODERATE SEVERITY EMERGENCY 39382 JOSE MARIA MATHUR, 9 9 EMERGENCY [facility] SERVICES T VISIT HIGH/URGE ASSOCIATE NT S SEVERITY EMERGENCY 98447 [facility] 9 9 [facility] DEPARTMEN INC T VISIT LIMITED/M INOR PROB [facility] - 9 9 [facility] OUTPATIEN INC T [facility] - 9 9 [facility] OUTPAT[facility] INC T EMERGENCY 52959 JOSE MARIA MATHUR, 9 9 EMERGENCY [facility] SERVICES T VISIT HIGH/URGE ASSOCIATE NT S SEVERITY EMERGENCY 41116 [place] 9 9 [facility] DEPARTMEN INC T VISIT LIMITED/M INOR PROB OFFICE 08563 ABEL ROMAN OUTPATIEN 9 9 DON R DON R T VISIT 15 MINUTES EMERGENCY 70079 [place] 9 9 [facility]ISIT LOW/MODER SEVERITY EMERGENCY 64338 JOSE MARIA MATHUR, 9 9 EMERGENCY [facility] SERVICES T VISIT MODERATE ASSOCIATE SEVERITY S [facility]OSP[facility] - 9 9 [facility] T EMERGENCY 67780 [place] 9 9 [facility] VISIT LOW/MODER SEVERITY EMERGENCY 90676 JOSE MARIA MATHUR, 9 9 EMERGENCY [facility] SERVICES T VISIT HIGH/URGE ASSOCIATE NT S SEVERITY [facility] - 9 9 [facility] OUTPATIEN [facility] T EMERGENCY 01274 [place] 9 9 [facility] DEPARTMEN INC T VISIT LIMITED/M INOR PROB [facility] - 9 9 [facility] OUTPATIEN INC T EMERGENCY 88546 JOSE MARIA MATHUR, 9 9 EMERGENCY [facility] SERVICES T VISIT HIGH/URGE ASSOCIATE NT S SEVERITY [facility] - 9 9 [facility] OUTPATIEN INC T OFFICE 86867 ABEL ROMAN OUTPATIEN 9 9 DON R DON R T VISIT 15 MINUTES OFFICE 11851 CHIKIS DIOP CONSULTAT 9 9 DESI FLOYD/ESTAB PATIENT 80 MIN OFFICE 39016 ABEL ROMAN OUTPATIEN 9 9 DON R DON R T VISIT 15 MINUTES EMERGENCY 20960 JOSE MARIA CASTANEDA, 9 9 EMERGENCY [facility] SERVICES T VISIT HIGH/URGE ASSOCIATE NT S SEVERITY EMERGENCY 49785 [place] 9 9 [facility] DEPARTMEN INC T VISIT LOW/MODER SEVERITY [facility] - 9 9 [facility] OUTPATIEN INC T EMERGENCY 49890 [facility] 9 9 [facility] DEPARTMEN INC T VISIT LOW/MODER SEVERITY [facility] - 9 9 [facility] OUTPATIEN INC T EMERGENCY 69999 [place] 9 9 [facility] T VISIT LIMITED/M INOR PROB EMERGENCY 04471 JOSE MARIA CASTANEDA, DEPT 9 9 EMERGENCY [place] VISIT SERVICES HIGH SEVERITY& ASSOCIATE THREAT S FUNCJ EMERGENCY 55125 JOSE MARIA MATHUR, 9 9 EMERGENCY [facility] SERVICES T VISIT HIGH/URGE ASSOCIATE NT S SEVERITY [facility]OSP[facility] - 9 9 [facility] T EMERGENCY 74095 [place] 9 9 [facility] T VISIT LOW/MODER SEVERITY EMERGENCY 65321 JOSE MARIA MATHUR, 9 9 EMERGENCY [facility] SERVICES T VISIT HIGH/URGE ASSOCIATE NT S SEVERITY EMERGENCY 87046 [place] 9 9 [facility] DEPARTMEN INC T VISIT LIMITED/M INOR PROB HOSPITAL [facility] - 9 9 [facility] OUTPATIEN INC T EMERGENCY 40018 [place] 9 9 [facility] DEPARTMEN INC T VISIT LIMITED/M INOR PROB [facility]OSPITAL [facility] - 9 9 [facility] OUTPATIEN INC T EMERGENCY 96821 JOSE MARIA MATHUR, 9 9 EMERGENCY [facility] SERVICES T VISIT HIGH/URGE ASSOCIATE NT S SEVERITY [facility] - 9 9 [facility] OUTPAT[facility]EN INC T EMERGENCY 21601 [facility] 9 9 [facility] DEPARTMEN INC T VISIT LIMITED/M INOR PROB EMERGENCY 55280 JOSE MARIA MATUHR, 9 9 EMERGENCY [facility] SERVICES T VISIT MODERATE ASSOCIATE SEVERITY S EMERGENCY 75274 JOSE MARIA BOOTH, DEPT 9 9 EMERGENCY [place] [facility] VISIT SERVICES HIGH SEVERITY& ASSOCIATE THREAT S [facility] - 9 9 [facility] OUTPAT[facility]EN INC T EMERGENCY 14868 [facility] 9 9 [facility] DEPARTMEN INC T VISIT LIMITED/M INOR PROB [facility]OSP[facility] - 9 9 [facility] OUTPATIEN INC T EMERGENCY 07940 JOSE MARIA MATHUR, 9 9 EMERGENCY [facility] SERVICES T VISIT MODERATE ASSOCIATE SEVERITY S EMERGENCY 36025 [facility] 9 9 [facility] DEPARTMEN INC T VISIT LOW/MODER SEVERITY EMERGENCY 31303 [facility] 9 9 [facility] DEPARTMEN INC T VISIT LIMITED/M INOR PROB [facility]OSPITAL [facility] - 9 9 [facility] OUTPATIEN INC T EMERGENCY 64901 JOSE MARIA MATHUR, 9 9 EMERGENCY [facility] SERVICES T VISIT MODERATE ASSOCIATE SEVERITY S EMERGENCY 77945 [facility] 9 9 [facility] DEPARTMEN INC T VISIT LOW/MODER SEVERITY EMERGENCY 74601 JOSE MARIA MATHUR, 9 9 [facility]ISIT MODERATE ASSOCIATE SEVERITY S [facility] - 9 9 [facility] OUTPATIEN INC T EMERGENCY 31204 JOSE MARIA MATHUR, 9 9 [facility]ISIT HIGH/URGE ASSOCIATE NT S [facility] - 9 9 [facility] OUTPATIEN INC T EMERGENCY 54330 [facility] 9 9 [facility] DEPARTMEN INC T VISIT LOW/MODER SEVERITY EMERGENCY 52906 JOSE MARIA MATHUR, 9 9 EMERGENCY [facility] SERVICES T VISIT HIGH/URGE ASSOCIATE NT S SEVERITY EMERGENCY 07627 [facility] 9 9 [facility] DEPARTMEN INC T VISIT MODERATE SEVERITY [facility] - 9 9 [facility]PAT[facility] INC T [facility] - 9 9 [facility] OUTPAT[facility] INC T EMERGENCY 35419 JOSE MARIA MATHUR, 9 9 EMERGENCY [facility] SERVICES T VISIT HIGH/URGE ASSOCIATE NT S SEVERITY EMERGENCY 78592 [facility] 9 9 [facility] DEPARTMEN INC T VISIT LIMITED/M INOR PROB [facility] - 9 9 [facility] OUTPATIEN INC T EMERGENCY 75584 [facility] 9 9 [facility] DEPARTMEN INC T VISIT LIMITED/M INOR PROB EMERGENCY 82669 JOSE MARIA COLEMAN, 9 9 [facility]IT MODERATE ASSOCIATE SEVERITY S EMERGENCY 39647 [facility] 9 9 [facility] DEPARTMEN INC T VISIT LOW/MODER SEVERITY [facility] - 9 9 [facility] OUTPATIEN INC T EMERGENCY 01572 JOSE MARIA MATHUR, 9 9 EMERGENCY [facility] SERVICES T VISIT MODERATE ASSOCIATE SEVERITY S EMERGENCY 31309 [facility] 9 9 [facility] DEPARTMEN INC T VISIT LIMITED/M INOR PROB [facility] - 9 9 [facility] OUTPAT[facility]EN INC T EMERGENCY 23998 JOSE MARIA MATHUR, 9 9 EMERGENCY [facility] SERVICES T VISIT MODERATE ASSOCIATE SEVERITY S [facility] - 9 9 [facility] OUTPAT[facility]EN INC T EMERGENCY 57627 [place] 9 9 [facility] DEPARTMEN INC T VISIT LIMITED/M INOR PROB EMERGENCY 78123 JOSE MARIA MATHUR, 9 9 EMERGENCY [facility] SERVICES T VISIT HIGH/URGE ASSOCIATE NT S SEVERITY EMERGENCY 71534 JOSE MARIA MATHUR, 9 9 EMERGENCY [facility] SERVICES T VISIT HIGH/URGE ASSOCIATE NT S SEVERITY EMERGENCY 26134 [facility] 9 9 [facility] DEPARTMEN INC T VISIT MODERATE SEVERITY [facility] - 9 9 [facility] OUTPATIEN INC T EMERGENCY 27187 JOSE MARIA MATHUR, 9 9 EMERGENCY [facility] SERVICES T VISIT HIGH/URGE ASSOCIATE NT S SEVERITY [facility] - 9 9 [facility] OUTPAT[facility]EN INC T EMERGENCY 35988 [facility] 9 9 [facility] DEPARTMEN INC T VISIT MODERATE SEVERITY [facility] - 9 9 [facility] OUTPATIEN INC T EMERGENCY 19625 [facility] 9 9 [facility] DEPARTMEN INC T VISIT LIMITED/M INOR PROB EMERGENCY 72279 JOSE MARIA CASTANEDA, 9 9 EMERGENCY [facility] SERVICES T VISIT MODERATE ASSOCIATE SEVERITY S [facility] - 9 9 [facility] OUTPAT[facility]EN INC T EMERGENCY 73546 [place] 9 9 [facility] DEPARTMEN INC T VISIT MODERATE SEVERITY EMERGENCY 27700 JOSE MARIA MATHUR, DEPT 9 9 EMERGENCY [facility] VISIT SERVICES HIGH SEVERITY& ASSOCIATE THREAT S FUNCJ OFFICE 88811 ABEL ROMAN OUTPATIEN 9 9 DON R DON R T VISIT 15 MINUTES [facility] - 9 9 [facility] OUTPAT[facility]EN INC T EMERGENCY 88866 [facility] 9 9 [facility] DEPARTMEN INC T VISIT LOW/MODER SEVERITY OFFICE 98295 ABEL ROMAN OUTPATIEN 9 9 DON R DON R T VISIT 15 MINUTES [facility] - 9 9 [facility] OUTPATIEN INC T EMERGENCY 62545 LUCHO MATHUR, 9 9 [facility] T VISIT ON MODERATE SEVERITY EMERGENCY 97274 [place] 9 9 [facility] DEPARTMEN INC T VISIT LOW/MODER SEVERITY [facility] - 9 9 [facility] OUTPATIEN INC T EMERGENCY 60362 [place] 9 9 [facility]ISIT LOW/MODER SEVERITY EMERGENCY 91486 LUCHO MATHUR, 9 9 [facility] T VISIT ON MODERATE SEVERITY EMERGENCY 10838 [facility] 9 9 [facility] V[facility]/M INOR PROB [facility] - 9 9 [facility] OUTPATIEN INC T EMERGENCY 72819 LUCHO CASTANEDA, 9 9 [facility] T VISIT ON MODERATE SEVERITY OFFICE 03748 ABEL ROMAN OUTPATIEN 9 9 DON R DON R T VISIT 15 MINUTES EMERGENCY 63304 [place] 9 9 [facility] T VISIT HIGH/URGE NT SEVERITY EMERGENCY 53483 LUCHO MATHUR, DEPT 9 9 [facility] VISIT CORPORATI HIGH ON SEVERITY& THREAT [facility] HOSPITAL [facility] - 9 9 [facility] OUTPATIEN INC T EMERGENCY 93623 [place] 8 8 [facility] T VISIT LOW/MODER SEVERITY EMERGENCY 80656 LUCHO MATHUR, 8 8 [facility] T VISIT ON MODERATE SEVERITY [facility] - 8 8 [facility] OUTPATIEN INC T OFFICE 15291 ABEL ROMAN OUTPATIEN 8 8 DON R DON R T VISIT 15 MINUTES EMERGENCY 17310 [place] 8 8 [facility] DEPARTMEN INC T VISIT HIGH/URGE NT SEVERITY [facility] - 8 8 [facility] OUTPATIEN INC T EMERGENCY 55245 [place] 8 8 [facility] DEPARTMEN INC T VISIT LIMITED/M INOR PROB HOSPITAL [facility] - 8 8 [facility] OUTPATIEN INC T [facility]OSPITAL [facility] - 8 8 [facility]PATIEN [facility] T EMERGENCY 69142 [place] 8 8 [facility] DEPARTMEN [facility] T VISIT LIMITED/M INOR PROB OFFICE 24154 ABEL ROMAN OUTPATIEN 8 8 DON R DON R T VISIT 15 MINUTES H[facility]PITAL [facility] - 8 8 [facility] OUTPATIEN INC T EMERGENCY 85337 [place] 8 8 [facility] DEPARTMEN INC T VISIT LOW/MODER SEVERITY OFFICE 04313 ABEL ROMAN OUTPATIEN 8 8 DON R DON R T VISIT 15 MINUTES OFFICE 83252 ABEL ROMAN OUTPATIEN 8 8 DON R DON R T VISIT 15 MINUTES OFFICE 29348 ABEL ROMAN OUTPATIEN 8 8 DON R DON R T VISIT 15 MINUTES EMERGENCY 64967 [place] 8 8 [facility] DEPARTMEN INC T VISIT LOW/MODER SEVERITY [facility] - 8 8 [facility] OUTPATIEN INC T EMERGENCY 16386 [place] 8 8 [facility] DEPARTMEN INC T VISIT LIMITED/M INOR PROB [facility]OSP[facility] - 8 8 [facility] OUTPATIEN INC T EMERGENCY 09408 [place] 8 8 [facility] DEPARTMEN INC T VISIT LOW/MODER SEVERITY [facility] - 8 8 [facility] 08268 ABEL ROMAN OUTPATIEN 8 8 DON R DON R T VISIT 15 MINUTES EMERGENCY 92163 [place] 8 8 [facility] T VISIT MODERATE SEVERITY [facility] - 8 8 [facility] OFF[facility] 06291 ABEL ROMAN OUTPATIEN 8 8 DON R DON R T VISIT 15 MINUTES EMERGENCY 59118 [place] 8 8 [facility] T VISIT LIMITED/M INOR PROB HOSPITAL [facility] - 8 8 [facility] T EMERGENCY 62454 LEELEE CASTANEDA, 8 8 [facility] T VISIT PROF SERV LOW/MODER SEVERITY OFFICE 38324 ABEL ROMAN OUTPATIEN 8 8 DON R DON R T VISIT 25 MINUTES [facility]PITAL [facility] - 8 8 [facility] T EMERGENCY 74418 [place] 8 8 [facility] T VISIT LOW/MODER SEVERITY
--- OUTSIDE RECORDS SUMMARY | 2017-06-11 01:22 | External Medical Summary Rpt ---
Author Author , SHEKHAR ROBINS Address Unknown Phone [email or web address] Immunization Name Date Rout CVX Reac Dose Comm Prov Is Faci e tion ent ider Refu lity Give sed n Tdap 04-2 115 999 Hist H149 No H149 , 5-20 oric Adso 07 al rbed Info rmat ion - Sour ce Unsp ecif ied
--- OUTSIDE RECORDS SUMMARY | 2017-06-11 01:22 | External Medical Summary Rpt ---
Author Author , SHEKHAR ROBINS Address Unknown Phone [email or web address] Immunization Name Date Rout CVX Reac Dose Comm Prov Is Faci e tion ent ider Refu lity Give sed n Tdap 04-2 115 999 Hist H149 No H149 , 5-20 oric Adso 07 al rbed Info rmat ion - Sour ce Unsp ecif ied
== END 2017-05-18 21:56 | disposition home or self-care (01) ==
LOC: ER 21:07
DX: J45.909 Unspecified asthma, uncomplicated (principal); F17.210 Nicotine dependence, cigarettes, uncomplicated; I10 Essential (primary) hypertension; K21.9 Gastro-esophageal reflux disease without esophagitis; C81.91 Hodgkin lymphoma, unspecified, lymph nodes of head, face, and neck; Z79.899 Other long term (current) drug therapy

== ENCOUNTER 2017-06-06 20:07 | Emergency (ER) | payer MEDICAID ==
[~2017-06-06] VITALS: Ht 165.1 cm; Wt 104.3 kg
--- NOTE | 2017-06-06 20:54 | Urgent Treatment Center Report ---
History of Present Issue Date/Time Seen by Provider 06/06/172040 Visit Reason Pt arrived:Walked Presenting Problem:PT C/O BITE ON LT EYELID Location if Accident: Onset of symptoms date/time:/ or onset unknown for:MEDICAL HX UNKNOWN Have you (or family members/close friends) recently traveled outside the [place]? N If Yes, where/when: Have you had exposure to infectious disease within the past month? TB? Other? Specify: Patient state that she thinks somthing may have stung her just above her eye and she noticed that she was starting to have some swelling State that she was scared she may be having an allergic reaction She came on in before the reaction got to bad ALLERGIES Coded Allergies: Sulfa (Sulfonamide Antibiotics) (Mild, 09/03/16) morphine (Mild, 09/03/16) NSAIDS (Non-Steroidal Anti-Inflamma (UNKNOWN 09/03/16) escitalopram (From LEXAPRO) (UNKNOWN 09/03/16) ibuprofen (From MOTRIN) (12/10/16) Home Medications Active Scripts Ondansetron (Zofran 4MG Odt) 4 MG PO Q6HP PRN NAUSEA AND VOMITING #6 ODT Prov: 03/10/17 BENZONATATE (Benzonatate) 100 MG PO TID #15 CAP Prov: 05/18/17 Azithromycin (Zithromycin (Z-MORGAN) 250MG Tab) 250 MG PO DAILY #6 TAB Prov: 05/18/17 Reported Medications ATENOLOL (Atenolol 50MG) 50 MG PO DAILY Omeprazole (Omeprazole 20MG) 20 MG PO DAILY #30 Zolpidem Tartrate (Zolpidem 10MG) 10 MG PO QHS #30 ALBUTEROL (Ventolin Hfa) 1 PUFF IH Q6H6 History Medical History General CAD? No Angina: No MO: No Hypertension? Yes Hyperlipidemia? No CHF? No DVT? No PE? No COPD? No Asthma? Yes Anemia? No GERD? Yes Gastric ulcers? No GI Bleed? No Hernia? No Thyroid Problems? No Hypothyroidism? No CVA? No Seizures? No Diabetes? No UTI? No Stones? No BPH? No GB Disease: Yes Nephritic Syndrome? No Asplenia? No Hepatitis? No Sickle Cell Disease? No Arthritis? No Migraines? No Cataracts? No Glaucoma? No MRSA? No HIV? No TB? No Anxiety? Yes Depression? No Cancer? Yes Site: NECK (HOD[place]KINS) More? No Immunization HX DT/Tetanus 1-4 Years Ago Flu NOT SURE Pneumonia NOT SURE Surgical Hx Previous Surgery?Y Gallbladd Tubal Ligation BIOSPY ON NECK HYSTERECTOMY Appendix Family History Family HX Diabetes No CAD No Hypertension Yes Hyperlipidemia No Cancer No TB No Social History Smoking Hx Smoker: Current Every Day Smoker Tobacco: Yes Type Cigarettes Packs/day < 1 Pack Alcohol Alcohol: No Review of Systems All Other Systems Reviewed and Negative Comment Patient state that she was stung by a bug on her face just above her eye on the top of her eyelid Physical Exam Vital Signs Vital Signs Date Time Temp Pulse Resp B/P Pulse O2 O2 Flow FiO2 Ox Delivery Rate 06/06 2033 97.9 86 18 150/83 94 General Appearance normal appearance, WD/WN, no apparent distress Eye Exam - bilateral eye normal exam, bilateral eye PERRL, bilateral eye EOMI Respiratory Status Yes: trachea midline, chest symmetrical, non tender chest. No: respiratory distress. Cardiovascular normal exam, regular rate/rhythm Neurologic alert, normal exam, oriented x 3 Comments Mild swelling in upper left eyelid area after patient state that she was stung by unknown bug Medical Decision Making LABS/Meds/Orders Pt receiving controlled substance in ED? No Results/Orders Current Medication Orders Sig/Asad Start time Last Medication Dose Route Stop Time Status Admin Diphenhydramine HCl 25 MG ONCE ONE 06/06 2100 AC 06/06 IM 06/06 Methylprednisolone 125 MG ONCE ONE 06/06 2100 AC 06/06 Sodium Succinate IM 06/06 Diphenhydramine HCl 0 .STK-MED ONE 06/06 2050 DC .ROUTE Methylprednisolone 0 .STK-MED ONE 06/06 2050 DC Sodium Succinate .ROUTE Departure Departure Time of Disposition 2050 Disposition DC Home or Self Care(routine) Clinical Impression Primary Impression: Allergic reaction Qualifiers: Encounter type: initial encounter Qualified Code: T78.40XA - Allergy, unspecified, initial encounter Condition STABLE Referrals [facility] (Family): 2 Days-Call Office If no improvement in symptoms Patient Instructions DI for General Allergic Reactions, DI for Insect Bites and Stings, Insect Bites and Stings Additional Instructions Take medication as prescribed and over the counter Benadryl for itching FOllow up with family doctor if symptoms worsen or you began having trouble with your vison or increased swelling Return if needed If you began to have any trouble breathing or extreme facial swelling go straight to ER Discharge Counseling Counseled pt/family regarding diagnosis, medications/RX, home care, follow up needs Prescriptions Current Visit Scripts Methylprednisolone (Medrol Dose Morgan) 4 MG PO UD #1 MORGAN TAKE DIRECTED ON PACKAGING Diphenhydramine Hcl (Benadryl 50MG Cap) 50 MG PO Q6H PRN #158 CAP at [id number]
[2017-06-06 21:22] VITALS: BP 150/83
== END 2017-06-06 21:22 | disposition home or self-care (01) ==
LOC: UTC 20:07
DX: T78.40XA Allergy, unspecified, initial encounter (principal); X58.XXXA Exposure to other specified factors, initial encounter; Y92.9 Unspecified place or not applicable; F17.210 Nicotine dependence, cigarettes, uncomplicated; Z85.71 Personal history of Hodgkin lymphoma; J45.909 Unspecified asthma, uncomplicated; I10 Essential (primary) hypertension; K21.9 Gastro-esophageal reflux disease without esophagitis; Z79.899 Other long term (current) drug therapy

== ENCOUNTER 2017-07-06 11:56 | Emergency (ER) | payer MEDICAID ==
[~2017-07-06] VITALS: Ht 165.1 cm; Wt 112.5 kg
[~2017-07-06 11:56] MED LIST changes: +BENADRYL 50MG C50 MG PO; +FLONASE 50 MCG16 GM; +ZOFRAN ODT4 MG PO
--- OUTSIDE RECORDS SUMMARY | 2017-07-06 12:07 | External Medical Summary Rpt | CCD ---
Author Author , SHIMON Organization SHIMON Address Unknown Phone [email or web address] Care Team Providers Care Staff Electronic Warfare Officer Name Role Phone [facility] Unavailable Unavailable [place], [facility] [place] [facility] Unavailable Unavailable [id number] [address] [id number], [facility] [id number] [address] [phone] [facility] # Unavailable Unavailable [id number], [facility] # [id number] Murray Velez III, MD, Murray Headley III, MD Purpose Continuity of Care Document - 10-30-2009 through 2016 Problems Code Diagnosis DOS Provider Status 719.41 719.41 12-26-2012 [facility] [id number] R11.10 VOMITING, UNSPECIFIED R51 HEADACHE R60.0 LOCALIZED EDEMA R79.89 OTHER SPECIFIED ABNORMAL FINDINGS OF BLOOD CHEMISTRY S53.402A UNSPECIFIED SPRAIN OF LEFT ELBOW, INITIAL ENCOUNTER Allergies, Adverse Reactions, Alerts Type Drug Allergy Adverse Reaction to Substance Substance Reaction Severity SULFA (sulfonamide) Unknown Unknown Bee Venom F-XRLXPE-URRL/THROAT Unknown Medications Na ND Rx Da Fi Fi Am Da Di Ph RX Ph St me C No te ll ll ou ys ag ar # ys at rm s nt no ma ic us Or Da si cy ia de te s n re d MA 00 04 0 No PA 90 -2 P 41 7- Lo 32 98 20 ng 5 26 13 er MG 1 Ac TA ti BL ve ET TO 31 09 09 2 60 30 [...] -0 -[address] 39 EP ti MO 30 4- 0- 00 SI 53 HE [...] 20 DE NS ZA 11 11 11 MO 0 PH DO IN AR N E MA R 10 CY MG OF TA CY BL NT ET HI AN A HY 00 05 08 [...] -0 -[address] 39 EP ti MO 30 4- 1- 00 SI 53 HE [...] -0 -[address] 39 EP ti MO 30 4- 1- 00 SI 53 HE [...] 20 DE NS ZA 11 11 11 MO 0 PH DO IN AR N E [...] 20 DE NS ZA 11 11 11 MO 0 PH DO IN AR N E MA R 10 CY MG OF TA CY BL NT ET HI AN A MO 00 07 07 0 12 3 EA 23 WE Ac OM 78 -0 -[address] 24 HR ti ET 11 7- 1- 00 SI 79 MA ve PARKER 83 20 20 DE N ZI 01 11 11 II NE 0 PH I AR WI 25 MA LL CY IA MG M OF E TA BL CY ET NT HI AN A MO 00 07 07 0 12 3 EA [...] -0 -[address] 39 EP ti MO 30 4- 1 00 SI 53 HE ve OL 73 [...] CY NT TA HI B AN A MO 00 06 06 1 [address] Ac OM 78 -0 -[address] 80 EP ti ET 11 4- 4- 00 SI 89 HE ve PARKER 83 20 20 DE NS ZI 01 11 11 NE 0 PH DO AR N 25 MA R CY MG OF TA BL CY ET NT HI AN A MO 00 06 06 1 28 7 EA [...] ST 80 EP ti EN 80 4- 4- 00 SI 90 HE ve OX 41 [...] -0 -[address] 39 EP ti MO 30 4 SI 53 HE ve OL [...] CY NT HI AN A 59 05 05 5 15 15 [...] ST 39 EP ti OC 22 4- SI 51 HE ve HL 08 20 20 DE NS OR 38 11 11 OT 0 PH DO HI AR N AZ MA R ID CY E 25 OF MG CY NT TA HI B AN A ME 00 05 05 5 [address] Ac TO 09 -0 -[address] 39 EP ti MO 30 4- 4 SI 53 HE ve OL 73 20 20 DE NS OL 31 11 11 0 PH DO TA AR N RT MA R RA CY TE OF 50 CY MG NT HI TA AN B A RA 53 02 05 2 60 [...] 6- 6- 00 SI 60 HE ve MO 02 20 20 DE NS ED 20 [...] CY NT TA HI B AN A TO 13 03 03 5 [...] -2 -[address] 13 EP ti MO 30 4- 8- 00 SI 63 HE [...] -2 -[address] 13 EP ti MO 30 4- 1- 00 SI 63 HE [...] BL CY ET NT HI AN A MO 00 02 02 [address] Ac OM 78 -0 -[address] 05 EP ti ET 11 2- 2- 00 SI 65 HE ve PARKER 83 20 20 DE NS ZI 01 11 11 NE 0 PH DO AR N 25 MA R CY MG OF TA BL CY ET NT HI AN A HY 00 11 [...] -2 -[address] 13 EP ti MO 30 4- 5- 00 SI 63 HE [...] -2 -[address] 13 EP ti MO 30 4- 4- 00 SI 63 HE [...] 4- 4- 00 SI 73 HE ve MO 02 20 20 DE NS ED 20 [...] BL ET CY NT HI AN A MO 00 12 12 [address] Ac OC 09 -0 -[address] 25 EP ti HL 39 3- 3- 00 SI 23 HE ve OR 65 20 20 DE NS PE 20 10 10 RA 1 PH DO ZI AR N NE MA R CY 10 OF MG CY TA NT B HI AN A ME 00 11 11 [address] Ac TO 09 -2 -[address] 13 EP ti MO 30 4- 4- 00 SI 63 HE ve OL 73 20 20 DE NS OL 31 10 10 0 PH DO TA AR N RT MA R RA CY TE OF 50 CY MG NT HI TA AN B A RA 53 08 11 3 60 [...] OF ET CY NT HI AN A MO 00 11 11 0 20 5 EA [...] -2 -[address] 73 EP ti MO 30 5- 4- 00 SI 22 HE [...] 4- 4- 00 SI 79 HE ve MO 02 20 20 DE NS ED 20 [...] -2 -[address] 73 EP ti MO 30 5- 2- 00 SI 22 HE ve OL 73 20 20 DE NS OL 31 10 10 0 PH DO TA AR N RT MA R RA CY TE OF 50 CY MG NT HI TA AN B A HY 09 1 [address] [...] OF ET CY NT HI AN A MO 00 08 08 0 16 4 EA [...] 0- 0- 00 SI 89 HE ve MO 50 20 20 DE NS AM 91 [...] -2 -[address] 73 EP ti MO 30 5- 3- 00 SI 22 HE [...] -2 -[address] 73 EP ti MO 30 5- 5- 00 SI 22 HE [...] OF ET CY NT HI AN A SE 16 06 06 0 15 [...] ET HI AN A ME 00 05 06 5 [address] Ac TO 09 -2 -[address] 73 EP ti MO 30 5- 6- 00 SI 22 HE ve OL 73 20 20 DE NS OL 31 10 10 0 PH DO TA AR N RT MA R RA CY TE OF 50 CY MG NT HI TA AN B A RA 53 05 06 2 [address] Ac NI 74 -2 -[address] 70 EP ti TI 60 4- 6- 00 SI 79 HE ve DI 25 20 20 DE NS NE 30 10 10 5 PH DO 15 AR N 0 MA R MG CY TA OF BL ET CY NT HI AN A 60 06 06 0 [address] Ac 25 -2 -[address] 05 EP ti 80 1- 1 00 SI 76 HE ve 23 20 20 0 DE NS 91 10 10 6 PH DO AR N MA R CY OF CY NT HI AN A PEREZ 53 06 06 0 [address] Ac LF 74 -1 -[address] 03 EP ti AM 60 8- 8 00 SI 12 HE ve ET 27 20 20 DE NS HO 20 10 10 XA 5 PH DO ZO AR N LE MA R -T CY MP OF DS CY TA NT BL HI ET AN A 00 06 06 1 [address] Ac 55 -0 -[address] 83 EP ti 50 2- 7 00 SI 56 HE ve 58 20 20 DE NS 50 10 10 2 PH DO AR N MA R CY OF CY NT HI AN A AC 00 01 06 5 60 30 EA 15 OC Ac ET 55 -1 -[address] 98 ON ti AZ 50 5 7 00 SI 82 NE ve OL 51 20 20 DE LL AM 30 10 10 ID 2 PH PATTI E AR HN ER MA CY 50 0 OF MG CY CA NT P HI AN A NO 00 01 06 5 90 30 EA 15 OC Ac RT 59 -1 -[address] 98 ON ti RI 15 7 SI 85 NE ve PT 78 20 [...] UL CY E NT HI AN A MO 00 06 06 0 12 3 EA 17 WE Ac OM 78 -1 -[address] 94 HR ti ET 11 1 SI 09 MA ve PARKER 83 20 [...] -2 -[address] 73 EP ti MO 30 5- 5- 00 SI 22 HE [...] -2 -[address] 69 EP ti MO 30 2- 4- 00 SI 71 HE [...] ST 98 ON ti RI 15 5- 2 SI 85 NE ve PT 78 20 20 DE LL YL 60 10 10 IN 1 PH PATTI E AR HN HC MA L CY 10 OF MG CY CA NT P HI AN A MO 00 04 04 [address] Ac OM 78 -0 -[address] 06 EP ti ET 11 5- 5 SI 94 HE ve PARKER 83 20 20 DE NS ZI 01 10 10 NE 0 PH DO AR N 25 MA R CY MG OF TA BL CY ET NT HI AN A AM 00 04 04 0 [address] Ac OX 78 -0 -[address] 06 EP ti IC 12 5- 5 SI 93 HE ve IL 61 20 20 DE NS LI 30 10 10 N 5 PH DO 50 AR N 0 MA R MG CY CA OF PS UL CY E NT HI AN A IN 00 01 [...] ST 98 EP ti RA 40 9 SI 23 HE ve LI 61 20 20 DE NS NE 30 10 10 6 PH DO HC AR N L MA R 10 CY 0 MG OF TA CY BL NT ET HI AN A MO 00 03 03 0 12 3 EA [...] -2 -[address] 69 EP ti MO 30 2- 2- 00 SI 71 HE ve OL 73 20 20 DE NS OL 31 09 10 0 PH DO TA AR N RT MA R RA CY TE OF 50 CY MG NT HI TA AN B A MO 00 03 03 12 3 RI 82 [...] CY CA NT P HI AN A MO 00 03 03 0 28 7 EA [...] CY UL NT E HI AN A Vital Signs 12-26-2012 00:48 Name Value Interpretat Reference Comment ion Range BP 67 mm[Hg] Diastolic BP Systolic 99 mm[Hg] Heart 84 /min Rate/Pulse O2% 96 % Respiratory 18 /min Rate 12-26-2012 00:15 Name Value Interpretat Reference Comment ion Range BP 70 mm[Hg] Diastolic BP Systolic 106 mm[Hg] Heart 78 /min Rate/Pulse O2% 97 % Respiratory 18 /min Rate Results Labs Lab Lab Date Result Refere Interp Status Commen Order Detail nces retati t Range on Screening group A Streptococcus antigen (06-29-2017 18:39) Screeni NOT NOTDETE complet ng 017 DETECTE CTED ed group A 18:39 D NOT DETECTE Strepto D L coccus antigen Comment: LOT # @[id number] EXP DATE @2019-05-04 Rapid influenza A and B antigen detectio (06-29-2017 18:39) INFLUEN NOT NOT complet ZA B 017 DETECTE DETECTD ed ANTIGEN 18:39 D Comment: LOT # @[id number] EXP DATE @05-20-30 Influen NOT NOT complet za A ag 017 DETECTE DETECTD ed QL 18:39 D NOT DETECTE D L Influenza virus A+B Ag [Presence] in Unspecified specimen (06-29-2017 18:39) Influen NOT NOT complet za 017 DETECTE DETECTD ed virus A 18:39 D Ag [Presen ce] in Unspeci fied specime n INFLUEN NOT NOT complet ZA B 017 DETECTE DETECTD ed ANTIGEN 18:39 D Streptococcus pyogenes Ag [Presence] in Unspecified specimen (06-29-2017 18:39) Strepto 10-29-2 NOT NOTDETE complet coccus 017 [address]ECTE CTED ed pyogene 18:39 D s Ag [Presen ce] in Unspeci fied specime n Streptococcus pyogenes Ag [Presence] in Unspecified specimen (01-23-2017 17:15) Strepto NOT NOTDETE complet coccus 017 [address]ED ed pyogene 17:15 D s Ag [Presen ce] in Unspeci fied specime n Encounters Encounter Start End Date Code Location Performer Type Date Emergency THERESA Headley (ER) 3 00:20 3 00:48 [facility] [place] Murray Ernst
--- OUTSIDE RECORDS SUMMARY | 2017-07-06 12:07 | External Medical Summary Rpt | CCD ---
Author Author , SHIMON Organization SHIMON Address Unknown Phone [email or web address] Care Team Providers Care Designer And Patternmaker Name Role Phone [facility] Unavailable Unavailable [place], [facility] [place] [facility] Unavailable Unavailable [id number] # [phone], [facility] [id number] # [phone] [facility] # Unavailable Unavailable [id number], [facility] # [id number] Murray Velez III, MD, Murray Headley III, MD Purpose Continuity of Care Document - 10-30-2009 through 2016 Problems Code Diagnosis DOS Provider Status 719.41 719.41 12-26-2012 [facility] [id number] R11.10 VOMITING, UNSPECIFIED R51 HEADACHE R60.0 LOCALIZED EDEMA R79.89 OTHER SPECIFIED ABNORMAL FINDINGS OF BLOOD CHEMISTRY S53.402A UNSPECIFIED SPRAIN OF LEFT ELBOW, INITIAL ENCOUNTER Allergies, Adverse Reactions, Alerts Type Drug Allergy Adverse Reaction to Substance Substance Reaction Severity SULFA (sulfonamide) Unknown Unknown Bee Venom F-EFALLG-FTIX/THROAT Unknown Medications Na ND Rx Da Fi [...] 42 11 11 TA 8 PH DO SD AR N N- MA R CA CY [...] ST 39 EP ti OK 30 4- 1 00 SI 53 HE [...] TA HI B AN A OK 00 06 06 1 [...] .0 ST 39 EP ti OK 30 4 SI 53 HE ve OL [...] ST 39 EP ti OK 30 4- 4 SI 53 HE ve [...] 42 11 11 TA 8 PH DO SD AR N N- MA R CA CY [...] 42 11 11 TA 8 PH DO SD AR N N- MA R CA CY [...] 42 11 11 TA 8 PH DO SD AR N N- MA R CA CY [...] 42 11 11 TA 8 PH DO SD AR N N- MA R CA CY [...] 20 20 DE AZ 40 11 11 SD OL 1 PH CH E AR AE [...] LL TE 26 10 10 0 PH PATIT 50 AR HN MA MG CY TA [...] 20 20 DE CE 42 10 10 SD TA 8 PH CH SD AR AE N- MA L CA CY [...] 20 RT 2 AC 90 10 10 SD 1 PH CH SO AR AE D [...] 20 20 DE IN 70 10 10 SD 5 PH CH 50 AR AE 0 [...] NT P HI AN A OK 00 04 04 [...] D L coccus antigen Comment: LOT # @[id number] EXP DATE @2019-05-04 Rapid influenza A and B antigen detectio (06-29-2017 18:39) INFLUEN NOT NOT complet ZA B 017 DETECTE DETECTD ed ANTIGEN 18:39 D Comment: LOT # @[id number] EXP DATE @05-20-30 Influen NOT NOT complet [...] THERESA Headley (ER) 3 00:20 3 00:48 [facility] Murray Ernst
--- OUTSIDE RECORDS SUMMARY | 2017-07-06 12:21 | External Medical Summary Rpt | CCD ---
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 10 10 ID 2 PH PATTI E AR HN ER MA CY 50 0 OF MG CY NT CA HI P AN A IN 00 02 01 60 10 EA 15 OC Ac DO 78 -1 -[address] 98 ON ti ME 12 5- 6- 00 SI 84 NE ve TH 32 20 20 DE LL AC 51 10 10 IN 0 PH PATTI AR HN 25 MA CY MG OF CA CY PS NT UL HI E AN A AZ 00 02 00 6. 5 WA 70 GA Ac IT 78 -2 -1 00 L- 55 IN ti HR 11 3- 1- 0 MA 65 EY ve OM 49 20 20 RT 3 YC 66 10 10 WV IN 8 PH CH AR AE 25 MA L 0 CY S MG #5 TA 91 BL ET AC 00 09 01 00 60 30 [...] CA HI P AN A IN 00 09 01 00 60 10 EA 15 OC Ac DO 78 -1 -[address] 98 ON ti ME 12 5- 8- 00 SI 84 NE ve TH 32 20 20 DE LL AC 51 10 10 IN 0 PH PATTI AR HN 25 MA CY MG OF CA CY PS NT UL HI E AN A HY 00 [address] 55 -1 -[address] 98 EP ti OX 50 5- 8- 00 SI 83 HE ve YZ 32 20 20 DE NS IN 30 10 10 E 4 PH DO PA AR N M MA R 25 CY MG OF CY CA NT P HI AN A ME 00 12 01 01 [address] Ac TO 09 -2 -[address] 69 EP ti GA 30 2- 8- 00 SI 71 HE [...] NT HI AN A SE 16 11 01 [...] ET NT HI AN A ME 00 12 12 [address] Ac TO 09 -2 -[address] 69 EP ti GA 30 2- 1- 00 SI 71 HE ve OL 73 20 20 DE NS OL 31 09 09 0 PH DO TA AR N RT MA R RA CY TE OF 50 CY NT MG HI AN TA A B SE 16 11 12 01 15 30 [...] HI ET AN A 00 10 12 02 60 [...] DE N ZA 80 09 09 II GA 1 PH I IN AR WI E [...] OF ET CY NT HI AN A ME 00 07 12 04 [address] Ac TO 09 -1 -[address] 53 EP ti GA 30 7- 3- 00 SI 68 HE [...] 00 [address] Ac GA 09 -1 -[address] 15 EP [...] AR N MA R CY #5 91 CI 00 11 11 00 14 7 EA 15 GA Ac GA 14 -1 -[address] 07 IN [...] AE M L #3 S 93 8 NO 00 08 11 02 90 30 EA 13 OC Ac RT 59 -2 -[address] 98 ON ti RI 15 5- 9- 00 SI 90 NE ve PT 78 20 20 DE LL YL 60 09 09 IN 1 PH PATTI E AR HN HC MA L CY 10 OF MG CY NT CA HI P AN A AC 00 08 11 02 [...] -1 -[address] 53 EP ti GA 30 7- 5- 00 SI 68 HE [...] -1 -[address] 53 EP ti GA 30 7- 4- 00 SI 68 HE [...] NT P HI AN A NO 00 08 09 00 [...] UL HI E AN A SE 16 07 09 01 [...] -1 -[address] 53 EP ti GA 30 7- 7- 00 SI 68 HE [...] S 75 #5 91 MG TA B BU 00 07 07 00 12 [...] CA NT P HI AN A TO 60 06 07 01 [address] Ac PI 50 -0 -[address] 03 EP ti RA 52 5- 0- 00 SI 08 HE ve MA 76 20 20 DE NS TE 00 09 09 6 PH DO 25 AR N MA R MG CY TA OF BL CY ET NT HI AN A ME 00 07 07 00 [address] Ac TO 09 -1 -[address] 53 EP ti GA 30 7- 0- 00 SI 68 HE [...] DS 91 PS C TA BL ET HY 00 04 06 02 60 20 [...] -0 -[address] 39 EP ti GA 30 9- 8- 00 SI 33 HE [...] ST 87 IN ti LB 13 6- 4 00 SI 78 EY ve -A 36 20 20 DE CE 90 09 09 WV TA 5 PH CH WV AR AE N- MA L CA CY S FF OF 50 CY -3 NT 25 HI -4 AN 0 A ME 00 02 05 03 [address] Ac TO 09 -0 -[address] 39 EP ti GA 30 SI 33 HE ve OL 73 20 20 DE NS OL 31 09 09 0 PH DO TA AR N RT MA R RA CY TE OF 50 CY NT MG HI AN TA A B HY 00 04 05 01 [address] 55 -0 -[address] 24 EP ti OX 50 7- 1 00 SI 45 HE ve YZ 32 [...] BL HI ET AN A ME 00 02 04 02 [address] Ac TO 09 -0 -[address] 39 EP ti GA 30 9- 3- 00 SI 33 HE ve OL 73 20 20 DE NS OL 31 09 09 0 PH DO TA AR N RT MA R RA CY TE OF 50 CY NT MG HI AN TA A B HY 00 04 04 00 [address] 55 -0 -[address] 24 EP ti OX 50 7- 3- 00 SI 45 HE ve YZ 32 20 20 DE NS IN 30 09 09 E 4 PH DO PA AR N M MA R 25 CY MG OF CY CA NT P HI AN A 49 02 04 02 [address] Ac 88 -0 -[address] 39 EP ti 40 9- 3- 00 SI 32 HE ve 54 20 20 DE NS 41 09 09 0 PH DO AR N MA R CY OF CY NT HI AN A GA 00 04 04 00 12 3 EA 12 WI Ac OM 78 -0 -[address] 25 CK ti ET 11 8- 3- 00 SI 91 ER ve PARKER 83 20 20 DE ZI 01 09 09 JE NE 0 PH FF AR RE 25 MA Y CY MG OF TA CY BL NT ET HI AN A GA 00 03 04 01 12 3 EA [...] CY OF CY NT HI AN A GA 00 03 03 00 12 3 EA [...] -0 -[address] 39 EP ti GA 30 9- 6- 00 SI 33 HE ve OL 73 20 20 DE NS OL 31 09 09 0 PH DO TA AR N RT MA R RA CY TE OF 50 CY NT MG HI AN TA A B 49 02 03 01 60 30 EA [...] CA NT P HI AN A 00 03 03 00 15 30 EA [...] CY OF CY NT HI AN A GA 00 02 03 [address] Ac OC 09 -2 -[address] 66 EP ti HL 39 7- 2- 00 SI 66 HE ve OR 65 20 20 DE NS PE 20 09 09 RA 1 PH DO ZI AR N NE MA R CY 10 OF MG CY NT TA HI B AN A ME 00 02 02 00 [address] Ac TO 09 -0 -[address] 39 EP ti GA 30 9- 6- 00 SI 33 HE ve OL 73 20 20 DE NS OL 31 09 09 0 PH DO TA AR N RT MA R RA CY TE OF 50 CY NT MG HI AN TA A B 49 02 02 00 [address] Ac 88 -0 -[address] 39 EP ti 40 9- 6- 00 SI 32 HE ve 54 20 20 DE NS 41 09 09 0 PH DO AR N MA R CY OF CY NT HI AN A 63 02 02 00 21 7 EA 11 GA Ac 30 -1 -[address] 44 IN ti 40 2- 6- 00 SI 31 EY ve 65 20 20 DE 70 09 09 WV 5 PH CH AR AE MA L CY S OF CY NT HI AN A ME 00 02 02 00 21 6 EA 11 GA Ac TH 78 -1 -[address] 44 IN ti YL 15 2- 6- 00 SI 32 EY ve GA 02 20 20 DE ED 20 09 09 WV NI 7 PH CH SO AR AE LO MA L NE CY S 4 OF MG CY NT DO HI SE AN PK A HY 00 12 02 02 [address] 55 -2 -[address] 83 EP ti OX 50 6- 6- 00 SI 09 HE ve YZ 32 20 20 DE NS IN 30 08 09 E 4 PH DO PA AR N M MA R 25 CY MG OF CY CA NT P HI AN A 00 12 02 01 [...] CY OF CY NT HI AN A GA 00 01 01 00 28 7 EA [...] -0 -[address] 03 EP ti GA 30 9- 5- 00 SI 40 HE [...] NT HI AN A DI 00 12 00 14 7 EA 10 GA Ac CL 78 -2 -[address] 80 IN ti OF 11 SI 15 EY ve EN 78 20 20 DE AC 90 08 09 WV 1 PH CH SO AR AE D MA L EC CY S 75 OF CY MG NT HI TA AN B A 00 01 12 11 [address] Ac 09 -0 -1 .0 L- 55 EP ti 37 8 8 MA 17 HE ve 17 20 20 RT 7 NS 75 08 08 6 PH DO AR N MA R CY #5 91 ME 00 08 12 04 [address] Ac TO 09 -1 -[address] 03 EP ti GA 30 8 SI 48 HE ve OL 73 20 20 DE NS OL 31 08 08 0 PH DO TA AR N RT MA R RA CY TE OF 50 CY NT MG HI AN TA A B HY 00 12 12 00 60 20 [...] CY OF CY NT HI AN A CY 00 11 12 01 [address] Ac CL 59 -2 -[address] 43 EP ti OB 15 6 8 SI 44 HE ve EN 65 20 20 DE NS ZA 80 08 08 GA 1 PH DO IN AR N E MA R 10 CY MG OF CY TA NT BL HI ET AN A GA 00 11 12 00 28 7 EA [...] 20 DE NS ZA 80 08 08 GA 1 PH DO IN AR N E MA R 10 CY MG OF CY TA NT BL HI ET AN A 64 08 11 02 60 [...] MA R CY #5 91 00 09 11 02 60 30 EA [...] HI -4 AN 0 A ME 00 08 11 03 [address] Ac TO 09 -1 -[address] 03 EP ti GA 30 1- 0- 00 SI 48 HE [...] CY OF CY NT HI AN A GA 00 11 11 01 [address] Ac OC 09 -0 -[address] 15 EP ti HL 39 5- 0- 00 SI 28 HE ve OR 65 20 20 DE NS PE 20 08 08 RA 1 PH DO ZI AR N NE MA R CY 10 OF MG CY NT TA HI B AN A HY 00 11 11 00 [address] 55 -1 -[address] 23 EP ti OX 50 1- 0- 00 SI 16 HE ve YZ 32 20 20 DE NS IN 30 08 08 E 4 PH DO PA AR N M MA R 25 CY MG OF CY CA NT P HI AN A HY 00 09 11 02 60 [...] NT 25 HI -4 AN 0 A GA 00 10 11 [address] Ac OM 78 -2 -[address] 93 EP ti ET 11 0- 7- 00 SI 32 HE ve PARKER 83 20 20 DE NS ZI 01 08 08 NE 0 PH DO AR N 25 MA R CY MG OF TA CY BL NT ET HI AN A GA 00 10 11 00 20 4 EA [...] -1 -[address] 03 t ti GA 30 1- 3- 00 SI 48 Av [...] DE ai ZA 80 08 08 la GA 1 PH bl IN AR e E [...] CA NT P HI AN A 00 09 09 00 28 6 EA 99 No Ac 78 -0 -[address] 38 t ti 11 8 6 SI 61 Av ve 26 20 20 DE ai 20 08 08 la 1 PH bl AR e MA CY OF CY NT HI AN A ME 00 08 09 01 30 30 EA 99 No Ac TO 09 -1 -[address] 03 t ti GA 30 1 6 00 SI 48 Av ve OL 73 20 20 DE ai OL 31 08 08 la 0 PH bl TA AR e RT MA RA CY TE OF 50 CY NT MG HI AN TA A B 00 01 09 08 [address] Ac 09 -0 -2 .0 L- 55 EP ti 37 8- 6 MA 17 HE ve 17 20 20 RT 7 NS 75 08 08 6 PH DO AR N MA R CY #5 91 GA 00 09 09 00 12 3 EA 99 No Ac OM 78 -0 -[address] 38 t ti ET 11 SI 60 Av ve PARKER 83 20 20 DE ai ZI 01 08 08 la NE 0 PH bl AR e 25 MA CY MG OF TA CY BL NT ET HI AN A 00 09 09 00 60 30 EA 99 No Ac 04 -0 -[address] 38 t ti 50 8 6 00 SI 58 Av ve 63 20 20 DE ai 96 08 08 la 5 PH bl AR e MA CY OF CY NT HI AN A ME 00 08 09 00 21 6 EA 99 No Ac TH 78 -2 -[address] 27 t ti YL 15 9- 00 SI 42 Av ve GA 02 20 20 DE ai ED 20 [...] -[address] 76 t ti 11 8 8 SI 40 Av ve 26 20 20 [...] NT TA HI BL AN ET A ME 00 08 08 00 30 30 EA 99 No Ac TO 09 -1 -[address] 03 t ti GA 30 8 00 SI 48 Av ve OL 73 20 20 DE ai OL 31 08 08 la 0 PH bl TA AR e RT MA RA CY TE OF 50 CY NT MG HI AN TA A B 49 08 08 00 60 30 EA 99 No Ac 88 -1 -[address] 03 t ti 40 8 00 SI 47 Av ve 54 20 20 DE ai 40 08 08 la 2 PH bl AR e MA CY OF CY NT HI AN A 00 05 08 03 60 30 EA 97 No Ac 04 -1 -[address] 98 t ti 50 4 8 00 SI 35 Av ve 63 20 20 DE ai 96 08 08 la 5 PH bl AR e MA CY OF CY NT HI AN A HY 00 07 08 01 60 20 EA [address] 55 -2 -[address] 88 t ti OX 50 9 8 SI 57 Av ve YZ 32 20 20 DE ai IN 30 08 08 la E 4 PH bl PA AR e M MA 25 CY MG OF CY CA NT P HI AN A 00 01 08 07 [...] ST 88 t ti OX 50 9 4 SI 57 Av ve YZ 32 20 20 DE ai IN 30 08 08 la E 4 PH bl PA AR e M MA 25 CY MG OF CY CA NT P HI AN A 00 07 08 00 24 6 EA 98 No Ac 78 -1 -[address] 76 t ti 11 8 SI 40 Av ve 26 20 20 DE ai 20 08 08 la 1 PH bl AR e MA CY OF CY NT HI AN A BU 00 07 08 00 28 5 EA 98 No Ac TA 59 -1 -[address] 72 t ti LB 13 5- 00 SI 69 Av ve -A 36 [...] -0 -[address] 66 t ti GA 30 9- 7- 00 SI 10 Av [...] bl AR e MA CY #5 91 GA 00 06 07 00 12 3 EA 98 No Ac OM 78 -0 -[address] 29 t ti ET 11 9- 3 00 SI 69 Av ve PARKER 83 20 20 DE ai ZI 01 08 08 la NE 0 PH bl AR e 25 MA CY MG OF TA CY BL NT ET HI AN A 00 06 07 00 28 6 EA 98 No Ac 78 -2 -[address] 52 t ti 11 7- 3- 00 SI 28 Av ve 26 20 20 DE ai 20 08 08 la 1 PH bl AR e MA CY OF CY NT HI AN A 00 05 07 01 [...] NT P HI AN A BU 00 06 07 [...] TA #5 BL 91 ET BU 00 05 06 03 28 5 [...] CY BL ET #5 91 00 01 05 04 30 30 WA [...] -4 AN 0 A LO 00 04 05 01 60 20 WA 44 No Ac RA 37 -0 -0 .0 L- 67 t ti ZE 82 9- 8- 00 MA 44 Av ve PA 45 20 20 RT 8 ai M 70 08 08 la 1 1 PH bl MG AR e MA TA CY BL ET #5 91 GA 00 04 05 00 28 7 WA 69 No Ac OC 78 -2 -0 .0 L- 69 t ti HL 15 9- 8- 00 MA 92 Av ve OR 02 20 20 RT 0 ai PE 10 08 08 la RA 1 PH bl ZI AR e NE MA CY 10 #5 MG 91 TA B 00 01 04 03 15 30 WA 69 No Ac 09 -0 -2 .0 L- 55 t ti 37 8- 4- 00 MA 17 Av ve 17 20 20 RT 7 ai 75 08 08 la 6 PH bl AR e MA CY #5 91 00 04 04 00 12 [...] CY #5 91 RA 00 01 04 03 60 30 WA 69 No Ac NI 17 -0 -2 .0 L- 55 t ti TI 24 8- 4- 00 MA 18 Av ve DI 35 20 20 RT 0 ai NE 77 08 08 la 0 PH bl 15 AR e 0 MA MG CY TA #5 BL 91 ET ME 00 04 04 00 21 6 WA 69 No Ac TH 60 -1 -2 .0 L- 67 t ti YL 34 3- 4- 00 MA 91 Av ve GA 59 20 20 RT 7 ai ED 31 08 08 la NI 5 PH bl SO AR e LO MA NE CY 4 #5 MG 91 DO SE PK 00 01 04 02 30 30 WA [...] CY #5 91 00 01 03 01 15 30 WA [...] BL 91 ET BU 00 01 03 01 30 7 [...] bl AR e MA CY #5 91 Procedures Procedure DOS Code Location Performer Comment [facility] [address] [facility] [facility] W/DRAINAG INC INC E SKIN&SUBC UTANEOUS TISSUE [facility] [place] [facility] W/DRAINAG INC INC E SKIN&SUBC UTANEOUS TISSUE Encounters Encounter Start End Date Code Location Performer Type Date [facility] [place] - [facility] 7 [facility] [place] [facility] 7 [facility] [place] [facility] [place] [facility] 6 [facility] [place] [facility] [place] [facility] [place] [facility] 6 6 [facility] [place] [facility] 6 [facility] [place] [facility] [place] [facility] [place] [facility] 5 [facility] [place] - 5 5 [facility] [place] [facility] 5 5 [facility] [place] - 4 4 [facility] [place] - 4 4 [facility] [place] - [facility] 4 [facility] [place] [facility] 4 [facility] [place] - 4 4 [facility] [place] - OTHER 4 4 MED CTR, ATTN[facility] [place] - [facility] 3 [facility] [place] - 3 3 [facility] [place] [facility] 3 3 [facility] [place] - 3 3 [facility] [place] - 3 3 [facility] [place] - 2 2 [facility] [place] 2 2 [facility] [place] 2 2 [facility] [place] [facility] 2 2 [facility] [place] - 2 2 [facility] [place] - 2 2 [facility] [place] [facility] 2 2 [facility] [place] 2 2 [facility] [place] - 2 2 [facility] [place] [facility] 2 2 [facility] [place] - 2 2 [facility] [place] [facility] 2 2 [facility] [place] [facility] 2 2 [facility] [place] [facility] 1 1 [facility] [place] [facility] 1 1 [facility] [place] [facility] 1 1 [facility] [place] [facility] 1 1 [facility] [place] [facility] 1 1 [facility] [place] [facility] 1 1 [facility] [place] [facility] 1 1 [facility] [place] [facility] 1 1 [facility] [place] [facility] 1 1 [facility] [place] [facility] 1 1 [facility] [place] - 0 0 [facility] [place] [facility] 0 0 [facility] [place] [facility] 0 0 [facility] [place] - 0 0 [facility] [place] - 0 0 [facility] [place] [facility] 0 0 [facility] [place] [facility] 0 0 [facility] [place] [facility] 0 0 [facility] [place] [facility] 0 0 [facility] [place] [facility] 0 0 [facility] [place] [facility] 0 0 [facility] [place] [facility] [place] [facility] 0 0 [facility] [place] [facility] [place] [facility] 0 0 [facility] [place] [facility] 0 0 [facility] [place] [facility] 0 0 [facility] [place] [facility] 0 0 [facility] [place] - 9 9 [facility] [place] - 9 9 [facility] [place] [facility] 9 9 [facility] [place] [facility] 9 9 [facility] [place] [facility] 9 9 [facility] [place] [facility] 9 9 [facility] [place] [facility] 9 9 [facility] [place] [facility] 9 9 [facility] [place] [facility] 9 9 [facility] [place] [facility] 9 9 [facility] [place] [facility] 9 9 [facility] [place] [facility] 9 9 [facility] [place] [facility] 9 9 [facility] [place] [facility] 9 [facility] [place] [facility] [place] [facility] [place] [facility] [place] [facility] [place] [facility] [place] [facility] [place] [facility] [place] [facility] [place] [facility] [place] [facility] [place] [facility] [place] [facility] [place] [facility] [place] [facility] [place] [facility] [place] [facility] [place] [facility] [place] [facility] [place] [facility] [place] [facility] [place] [facility] [place] [facility] [place] [facility] [place] [facility] 8 [facility] [place] - 8 8 [facility] [place] [facility] 8 8 [facility] [place] [facility] 8 8 [facility] [place] - 8 8 [facility] [place] - 8 8 [facility] [place] [facility] 8 8 [facility] [place] [facility] 8 8 [facility]
--- OUTSIDE RECORDS SUMMARY | 2017-07-06 12:21 | External Medical Summary Rpt | CCD ---
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 [facility] [place] [facility] 6 6 [facility] [place] [facility] 6 6 [facility] [place] [facility] 6 6 [facility] [place] - 6 6 [facility] [place] [facility] [place] [facility] 5 [facility] [place] [facility] 5 5 [facility] [place] [facility] 5 5 [facility] [place] - 4 4 [facility] [place] [facility] 4 4 [facility] [place] [facility] 4 4 [facility] [place] - 4 4 [facility] [place] [facility] 4 4 [facility] [place] - OTHER 4 4 MED [facility], ATTN: [facility] [place] - 3 3 [facility] [place] - 3 3 [facility] [place] - 3 3 [facility] [place] [facility] 3 3 [facility] [place] [facility] 3 3 [facility] [place] [facility] 2 2 [facility] [place] [facility] 2 2 [facility] [place] [facility] 2 2 [facility] [place] [facility] 2 2 [facility] [place] [facility] 2 2 [facility] [place] [facility] 2 2 [facility] [place] [facility] 2 2 [facility] [place] [facility] 2 2 [facility] [place] [facility] 2 2 [facility] [place] [facility] 2 2 [facility] [place] [facility] 2 2 [facility] [place] [facility] 2 2 [facility] [place] [facility] 2 2 [facility] [place] [facility] 1 1 [facility] [place] - 1 1 [facility] [place] [facility] 1 1 [facility] [place] [facility] 1 1 [facility] [place] [facility] 1 1 [facility] [place] [facility] 1 1 [facility] [place] [facility] 1 1 [facility] [place] [facility] 1 1 [facility] [place] [facility] 1 1 [facility] [place] [facility] 1 1 [facility] [place] [facility] 0 0 [facility] [place] [facility] 0 0 [facility] [place] [facility] 0 0 [facility] [place] [facility] 0 [facility] [place] [facility] 0 [facility] [place] [facility] 0 [facility] [place] [facility] 0 [facility] [place] [facility] 0 [facility] [place] [facility] 0 0 [facility] [place] [facility] 0 [facility] [place] [facility] 0 [facility] [place] [facility] [place] [facility] [place] [facility] [place] [facility] [place] [facility] [place] [facility] 0 [facility] [place] [facility] 0 0 [facility] [place] - 9 9 [facility] [place] [facility] 9 9 [facility] [place] [facility] 9 9 [facility] [place] [facility] 9 9 [facility] [place] [facility] 9 9 [facility] [place] [facility] 9 9 [facility] [place] [facility] 9 9 [facility] [place] [facility] 9 9 [facility] [place] [facility] 9 9 [facility] [place] [facility] 9 9 [facility] [place] [facility] 9 9 [facility] [place] [facility] 9 9 [facility] [place] [facility] 9 9 [facility] [place] [facility] 9 9 [facility] [place] [facility] 9 9 [facility] [place] - 9 9 [facility] [...] - 9 9 [facility] [place] - 9 9 [facility] [place] [facility] 8 [facility] [place] [facility] 8 8 [facility] [place] [facility] 8 [facility] [place] [facility] 8 [facility] [place] [facility] 8 [facility] [place] [facility] 8 [facility] [place] [facility] [place] [facility] 8 [facility]
--- OUTSIDE RECORDS SUMMARY | 2017-07-06 12:26 | External Medical Summary Rpt ---
Author Author SHIMON Montilla, [employer] Organization [employer] Address Unknown Phone Unavailable Results Influenza virus A+B Ag [Presence] in Unspecified specimen Observa Value Referen Units Interpr Notes Date tion ce etation Range Influen NOT NOT No No No Jun 29 za DETECTE DETECTD informa informa informa 2017 virus A D tion in tion in tion in 6:39 PM Ag source source source [Presen data data data ce] in Unspeci fied specime n INFLUEN NOT NOT No No LOT # Jun 29 ZA B DETECTE DETECTD informa informa @[id number] ANTIGEN D tion in tion in 4 EXP 6:39 PM source source DATE data data @ 0 Streptococcus pyogenes Ag [Presence] in Unspecified specimen Observa Value Referen Units Interpr Notes Date tion ce etation Range Strepto NOT NOTDETE No No LOT # Jun 29 coccus DETECTE CTED informa informa @[id number] pyogene D tion in tion in 2 EXP 6:39 PM s Ag source source DATE [Presen data data @ ce] in 05-04 Unspeci fied specime n Comprehensive metabolic 2000 panel in Serum or Plasma Observa Value Referen Units Interpr Notes Date tion ce etation Range Albumin/G 1.1 - 1.8 No Low No Mar 04 lobulin informati informati 2016 [Mass on in on in 12:30 AM ratio] in source source Serum or data data Plasma Albumin 3.4 - 5.0 gm/dL Normal No Mar 04 [Mass/vol informati 2016 ume] in on in 12:30 AM Serum or source Plasma data Alkaline 46 - 116 U/L Normal No Mar 04 phosphata informati 2016 se on in 12:30 AM [Enzymati source c data activity/ volume] in Serum or Plasma Bilirubin 0.2 - 1.0 mg/dL Normal No Mar 04 .total informati 2016 [Mass/vol on in 12:30 AM ume] in source Serum or data Plasma Urea 7 - 18 mg/dL Normal No Mar 04 nitrogen informati 2016 [Mass/vol on in 12:30 AM ume] in source Serum or data Plasma Calcium 8.5 - mg/dL Normal No Mar 04 [Mass/vol 10.1 informati 2016 ume] in on in 12:30 AM Serum or source Plasma data Chloride 98 - 107 mmoL/L Normal No Mar 04 [Moles/vo informati 2016 lume] in on in 12:30 AM Serum or source Plasma data Carbon 21.0 - mmoL/L Normal No Mar 04 dioxide, 32.0 informati 2017 total on in 12:30 AM [Moles/vo source lume] in data Serum or Plasma Creatinin 0.55 - mg/dL High No Mar 04 e 1.02 informati 2016 [Mass/vol on in 12:30 AM ume] in source Serum or data Plasma Creatinin 50 - 200 ML/MIN Normal No Mar 04 e renal 2016 clearance on in 12:30 AM source predicted data by Cockcroft -Gault formula Estimated 59- ML/MIN Low REFERENCE Mar 04 RANGE: 2017 glomerula >60 12:30 AM r ML/MIN/1. filtratio 73 SQUARE n rate METERSIf (GF this patient is -A merican, then multiply theresult by 1.210. Globulin 1.3 - 3.2 gm/dL High No Mar 04 [Mass/vol informati 2017 ume] in on in 12:30 AM Serum source data Glucose 74 - 106 mg/dL High No Mar 04 [Mass/vol informati 2016 ume] in on in 12:30 AM Serum or source Plasma data Potassium 3.5 - 5.1 mmoL/L Normal No Mar 04 inform2016 [Moles/vo on in 12:30 AM lume] in source Serum or data Plasma Sodium 136 - 145 mmoL/L Normal No Mar 04 [Moles/vo informati 2017 lume] in on in 12:30 AM Serum or source Plasma data Aspartate 15 - 37 U/L Normal No Mar 042016 aminotran on in 12:30 AM sferase source [Enzymati data c activity/ volume] in Serum or Plasma Alanine 12 - 78 U/L Normal No Mar 04 aminotran 2016 sferase on in 12:30 AM [Enzymati source c data activity/ volume] in Serum or Plasma Protein 6.4 - 8.2 gm/dL Normal No Mar 04 [Mass/vol informati 2016 ume] in on in 12:30 AM Serum or source Plasma data Amylase [Enzymatic activity/volume] in Serum or Plasma Observa Value Referen Units Interpr Notes Date tion ce etation Range Amylase 25 - 115 U/L Normal No Mar 04 [Enzymati informati 2016 c on in 12:30 AM activity/ source volume] data in Serum or Plasma Lipase [Enzymatic activity/volume] in Serum or Plasma Observa Value Referen Units Interpr Notes Date ti ce etation Range Lipase 73 - 393 U/L Normal No Mar 04 [Enzymati informati 2016 c on in 12:30 AM activity/ source volume] data in Serum or Plasma CBC W Auto Differential panel in Blood Observa Value Referen Units Interpr Notes Date ti ce etation Range Basophils 0 - 0.2 K/MM3 Normal No Mar 04 inform2016 [#/volume on in 12:30 AM ] in source Blood by data Automated count Basophils 0.1 - 2.0 % Normal No Mar 04 / inform2016 leukocyte on in 12:30 AM s in source Blood by data Automated count Eosinophi 0.0 - 0.4 K/mm3 Normal No Mar 04 ls informati 2016 [#/volume on in 12:30 AM ] in source Blood by data Automated count Eosinophi 0.1 - % Normal No Mar 04 ls/100 12.0 inform2016 leukocyte on in 12:30 AM s in source Blood by data Automated count Granulocy 1.8 - 7.8 K/mm3 Normal No Mar 04 jaya informati 2016 [#/volume on in 12:30 AM ] in source Blood by data Automated count Granulocy 37.0 - % Normal No Mar 04 jaya/100 80.0 informati 2016 leukocyte on in 12:30 AM s in source Blood by data Automated count Hematocri 37.0 - % Normal No Mar 04 t [Volume 47.0 informati 2016 on in 12:30 AM Fraction] source of Blood data Hemoglobi 12.2 - g/dL No No Mar 04 n 16.2 informati informati 2016 [Mass/vol on in on in 12:30 AM ume] in source source Blood data data Lymphocyt 0.7 - 4.5 K/mm3 Normal No Mar 04 es informati 2016 [#/volume on in 12:30 AM ] in source Unspecifi data ed specimen by Automated count Lymphocyt 10 - 50.0 % Normal No Mar 04 es inform2016 [#/volume on in 12:30 AM ] in source Unspecifi data ed specimen by Automated count Erythrocy 27 - 31.2 pg Normal No Mar 04 te mean 2016 corpuscul on in 12:30 AM ar source hemoglobi data n [Entitic mass] Erythrocy 31.8 - g/dl Normal No Mar 04 te mean 35.4 2016 corpuscul on in 12:30 AM ar source hemoglobi data n concentra tion [Mass/vol ume] by Automated count Erythrocy 82.2 - fl Normal No Mar 04 te mean 97.8 2016 corpuscul on in 12:30 AM ar volume source [Entitic data volume] by Automated count Monocytes 0.1 - 1.0 K/mm3 Normal No Mar 04 inform2016 [#/volume on in 12:30 AM ] in source Blood by data Automated count Monocytes 1.7 - 9.3 % Normal No Mar 04 /100 inform2016 leukocyte on in 12:30 AM s in source Blood by data Automated count Platelet 7.4 - fl Normal No Mar 04 mean 10.4 2016 volume on in 12:30 AM [Entitic source volume] data in Blood by Automated count Platelets 142 - 424 K/mm3 No No Mar 04 informati inform2016 [#/volume on in on in 12:30 AM ] in source source Blood data data Erythrocy 4.2 - 5.4 M/mm3 Normal No Mar 04 jaya inform2016 [#/volume on in 12:30 AM ] in source Amniotic data fluid Erythrocy 11.5 - % Normal No Mar 04 te 17.5 2016 distribut on in 12:30 AM ion width source [Entitic data volume] by Automated count Leukocyte 4.8 - K/MM3 Normal No Mar 04 s 10.8 2016 [#/volume on in 12:30 AM ] in source Blood data Streptococcus pyogenes Ag [Presence] in Unspecified specimen [...]
--- OUTSIDE RECORDS SUMMARY | 2017-07-06 12:26 | External Medical Summary Rpt | CCD ---
Author Author , SHIMON ROBINS Address Unknown Phone [email or web address] Immunization Name Date Rout CVX Reac Dose Comm Prov Is Faci e tion ent ider Refu lity Give sed n Tdap 04-2 115 999 Hist H149 No H149 , 5-20 oric Adso 07 al rbed Info rmat ion - Sour ce Unsp ecif ied
--- OUTSIDE RECORDS SUMMARY | 2017-07-06 12:26 | External Medical Summary Rpt ---
[...] 29 ZA B DETECTE DETECTD informa informa @[id number] ANTIGEN D tion in tion in 4 EXP 6:39 PM source source DATE data data @ 0 Streptococcus pyogenes Ag [Presence] in Unspecified specimen Observa Value Referen Units Interpr Notes Date tion ce etation Range Strepto NOT NOTDETE No No LOT # Jun 29 coccus DETECTE CTED informa informa @[id number] pyogene D tion in tion in 2 [...]
--- OUTSIDE RECORDS SUMMARY | 2017-07-06 12:26 | External Medical Summary Rpt | CCD ---
Author Author , SHIMON ROBINS Address Unknown Phone [email or web address] Immunization Name Date Rout CVX Reac Dose Comm Prov Is Faci e tion ent ider Refu lity Give sed n Tdap 04-2 115 999 Hist H149 No H149 , 5-20 oric Adso 07 al rbed Info rmat ion - Sour ce Unsp ecif ied
[2017-07-06] MEDS ORDERED: AMOXICILLIN 50500 MG PO (13:07)
--- NOTE | 2017-07-06 13:07 | Urgent Treatment Center Report ---
History of Present Issue Date/Time Seen by Provider 07/06/17 1255 Visit Reason Pt arrived:Walked Presenting Problem:PT C/O RT EAR PAIN Location if Accident: Onset of symptoms date/time:/ or onset unknown for:MEDICAL HX UNKNOWN Have you (or family members/close friends) recently traveled outside the [place]? N If Yes, where/when: Have you had exposure to infectious disease within the past month? TB? Other? Specify: Patient state that she was having pain in her right ear for several days States that yesterday she began to have pain in her left ear that was even worse State that she thinks she may have an ear infection in her left ear States that this morning she noticed that it was having a burning feeling so she decided to come on in ALLERGIES Coded Allergies: Sulfa (Sulfonamide Antibiotics) (Mild, 09/03/16) morphine (Mild, 09/03/16) NSAIDS (Non-Steroidal Anti-Inflamma (UNKNOWN 09/03/16) escitalopram (From LEXAPRO) (UNKNOWN 09/03/16) ibuprofen (From MOTRIN) (12/10/16) Home Medications Active Scripts Ondansetron (Zofran 4MG Odt) 4 MG PO Q6HP PRN NAUSEA AND VOMITING #6 ODT Prov: 03/10/17 Loratadine (Claritin 10MG Tab) 10 MG PO DAILY #30 TAB Prov: 06/29/17 Fluticasone Propionate (Flonase 50 Mcg Nasal [place]) 1 SPRAY NA BID #1 BOT Prov: 06/29/17 Reported Medications ATENOLOL (Atenolol 50MG) 50 MG PO DAILY Omeprazole (Omeprazole 20MG) 20 MG PO DAILY #30 Zolpidem Tartrate (Zolpidem 10MG) 10 MG PO QHS #30 ALBUTEROL (Ventolin Hfa) 1 PUFF IH Q6H6 History Medical History General CAD? No Angina: No MT: No Hypertension? Yes Hyperlipidemia? No CHF? No DVT? No PE? No COPD? No Asthma? Yes Anemia? No GERD? Yes Gastric ulcers? No GI Bleed? No Hernia? No Thyroid Problems? No Hypothyroidism? No CVA? No Seizures? No Diabetes? No UTI? No Stones? No BPH? No GB Disease: Yes Nephritic Syndrome? No Asplenia? No Hepatitis? No Sickle Cell Disease? No Arthritis? No Migraines? No Cataracts? No Glaucoma? No MRSA? No HIV? No TB? No Anxiety? Yes Depression? No Cancer? Yes Site: NECK ([place]) More? No Immunization HX DT/Tetanus 1-4 Years Ago Flu NOT SURE Pneumonia NOT SURE Surgical Hx Previous Surgery?Y Gallbladd Tubal Ligation BIOSPY ON NECK HYSTERECTOMY Appendix Family History Family HX Diabetes No CAD No Hypertension Yes Hyperlipidemia No Cancer No TB No Social History Smoking Hx Smoker: Current Every Day Smoker Tobacco: Yes Type Cigarettes Packs/day < 1 Pack Alcohol Alcohol: No Review of Systems All Other Systems Reviewed and Negative ENT ear pain. Physical Exam Vital Signs Vital Signs Date Time Temp Pulse Resp B/P Pulse O2 O2 Flow FiO2 Ox Delivery Rate 07/06 1221 99.5 73 16 124/94 98 General Appearance normal appearance, WD/WN, no apparent distress Ear, Nose, Throat Left ear bright red, TM buldging, Right ear no redness TM buldging Respiratory Status Yes: trachea midline, chest symmetrical. No: respiratory distress. Cardiovascular normal exam, regular rate/rhythm Neurologic alert, normal exam, oriented x 3 Medical Decision Making LABS/Meds/Orders Pt receiving controlled substance in ED? No Departure Departure Time of Disposition 1305 Disposition DC Home or Self Care(routine) Clinical Impression Primary Impression: Otitis media Qualifiers: Otitis media type: unspecified Laterality: left Qualified Code: H66.92 - Otitis media, unspecified, left ear Condition STABLE Referrals [facility] (PCP/Family) Patient Instructions DI for Otitis Media (Middle Ear Infection)-Child Additional Instructions * Monitor Temp. Tylenol and/or Ibuprofen as needed. ER if fever is no less than 101 despite alternating Tylenol and Ibuprofen * Encourage fluids, water, Gatorade, powerade, pedialyte if infant/toddler/or child * Warm salt water gargles for throat irritation *Warm fluids *Sore throat lozenges *Sleep elevated *humidifier or vaporizer Lots of rest Increase fluids, water, Gatorade, powerade *Flonase 2 sprays each nostril daily but may take 2-3 days to notice improvement with it Discharge Counseling Counseled pt/family regarding diagnosis, medications/RX, home care, follow up needs Prescriptions Current Visit Scripts Amoxicillin Trihydrate (Amoxicillin 500MG) 500 MG PO TID #30 CAP at 9599
[2017-07-06 13:10] VITALS: BP 124/94
== END 2017-07-06 13:14 | disposition home or self-care (01) ==
LOC: UTC 11:56
DX: H66.92 Otitis media, unspecified, left ear (principal); F17.210 Nicotine dependence, cigarettes, uncomplicated; K21.9 Gastro-esophageal reflux disease without esophagitis; I10 Essential (primary) hypertension; Z88.2 Allergy status to sulfonamides; Z88.6 Allergy status to analgesic agent

== ENCOUNTER 2017-07-12 13:16 | Emergency (ER) | payer MEDICAID ==
[~2017-07-12] VITALS: Ht 165.1 cm; Wt 112.5 kg
[~2017-07-12 13:16] MED LIST changes: +AMOXICILLIN 50500 MG PO
--- OUTSIDE RECORDS SUMMARY | 2017-07-12 13:20 | External Medical Summary Rpt | CCD ---
Author Author , SHIMON Organization SHIMON Address Unknown Phone [email or web address] Care Team Providers Care Baby Formula Mixer Name Role Phone Murray Velez III, MD, Murray Headley III, MD Purpose Continuity of Care Document - 12-26-2012 through 2016 Problems Code Diagnosis DOS Provider Status 719.41 719.41 12-26-2012 [facility] [id number] R11.10 VOMITING, UNSPECIFIED R51 HEADACHE R60.0 LOCALIZED EDEMA R79.89 OTHER SPECIFIED ABNORMAL FINDINGS OF BLOOD CHEMISTRY S53.402A UNSPECIFIED SPRAIN OF LEFT ELBOW, INITIAL ENCOUNTER Allergies, Adverse Reactions, Alerts Type Drug Allergy Adverse Reaction to Substance Substance Reaction Severity SULFA (sulfonamide) Unknown Unknown Bee Venom [id number]/THROAT Unknown Medications Na ND Rx Da Fi [...] 1 Ac TA ti BL ve ET Vital Signs 12-26-2012 00:48 Name Value Interpretat [...] D L coccus antigen Comment: LOT # @[id number] EXP DATE @2019-05-04 Rapid influenza A and B antigen detectio (06-29-2017 18:39) INFLUEN NOT NOT complet ZA B 017 DETECTE DETECTD ed ANTIGEN 18:39 D Comment: LOT # @[id number] EXP DATE @05-20-30 Influen NOT NOT complet za A ag 017 DETECTE DETECTD ed QL 18:39 D NOT DETECTE D L Encounters Encounter Start End Date Code Location Performer Type Date Emergency THERESA Headley (ER) 3 00:20 3 00:[address] [facility] Murray Ernst
--- OUTSIDE RECORDS SUMMARY | 2017-07-12 13:20 | External Medical Summary Rpt | CCD ---
Author Author , SHIMON Organization SHIMON Address Unknown Phone [email or web address] Care Team Providers Care Structural Drafter Name Role Phone Murray Velez III, MD, Murray Headley III, MD Purpose Continuity of Care Document - 12-26-2012 through 2016 Problems Code Diagnosis DOS Provider Status 719.41 719.41 12-26-2012 [facility] [id number] R11.10 VOMITING, UNSPECIFIED R51 HEADACHE R60.0 LOCALIZED EDEMA R79.89 OTHER SPECIFIED ABNORMAL FINDINGS OF BLOOD CHEMISTRY S53.402A UNSPECIFIED SPRAIN OF LEFT ELBOW, INITIAL ENCOUNTER Allergies, Adverse Reactions, Alerts Type Drug Allergy Adverse Reaction to Substance Substance Reaction Severity SULFA (sulfonamide) Unknown Unknown Bee Venom [id number]/THROAT Unknown Medications Na ND Rx Da Fi [...] D L coccus antigen Comment: LOT # @[id number] EXP DATE @2019-05-04 Rapid influenza A and B antigen detectio (06-29-2017 18:39) INFLUEN NOT NOT complet ZA B 017 DETECTE DETECTD ed ANTIGEN 18:39 D Comment: LOT # @[id number] EXP DATE @05-20-30 Influen NOT NOT complet za A ag 017 DETECTE DETECTD ed QL 18:39 D NOT DETECTE D L Encounters Encounter Start End Date Code Location Performer Type Date Emergency THERESA Headley (ER) 3 00:20 3 00:48 [facility] Murray Ernst
--- OUTSIDE RECORDS SUMMARY | 2017-07-12 13:21 | External Medical Summary Rpt | CCD ---
Author Author , SHIMON ROBINS Address Unknown Phone [email or web address] Immunization Name Date Rout CVX Reac Dose Comm Prov Is Faci e tion ent ider Refu lity Give sed n Tdap 04-2 115 999 Hist H149 No H149 , 5-20 oric Adso 07 al rbed Info rmat ion - Sour ce Unsp ecif ied
--- OUTSIDE RECORDS SUMMARY | 2017-07-12 13:21 | External Medical Summary Rpt | CCD ---
Author Author , SHIMON ROBINS Address Unknown Phone [email or web address] Immunization Name Date Rout CVX Reac Dose Comm Prov Is Faci e tion ent ider Refu lity Give sed n Tdap 04-2 115 999 Hist H149 No H149 , 5-20 oric Adso 07 al rbed Info rmat ion - Sour ce Unsp ecif ied
--- OUTSIDE RECORDS SUMMARY | 2017-07-12 13:21 | External Medical Summary Rpt | CCD ---
Author Author [employer] Organization [employer] Address Unknown Phone Unavailable Purpose Continuity of Care Document - through 2016
--- NOTE | 2017-07-12 13:56 | Urgent Treatment Center Report ---
History of Present Issue Date/Time Seen by Provider 07/12/17 3723 Visit Reason Pt arrived: Presenting Problem: Location if Accident: Onset of symptoms date/time:/ or onset unknown for: Have you (or family members/close friends) recently traveled outside the [place]? If Yes, where/when: Have you had exposure to infectious disease within the past month? TB? Other? Specify: Source patient, RN notes reviewed Exam Limitations no limitations Comment Patient complains with 2-3 days history abdominal pain, back pain and dysuria. No fever. Denies vomiting or diarrhea. Seen in [facility] twice recently with upper respiratory symptoms and ear pain. States those have resolved. ALLERGIES Coded Allergies: Sulfa (Sulfonamide Antibiotics) (Mild, 09/03/16) morphine (Mild, 09/03/16) NSAIDS (Non-Steroidal Anti-Inflamma (UNKNOWN 09/03/16) escitalopram (From LEXAPRO) (UNKNOWN 09/03/16) ibuprofen (From MOTRIN) (12/10/16) Home Medications Active Scripts Ondansetron (Zofran 4MG Odt) 4 MG PO Q6HP PRN NAUSEA AND VOMITING #6 ODT Prov: 03/10/17 Loratadine (Claritin 10MG Tab) 10 MG PO DAILY #30 TAB Prov: 06/29/17 Fluticasone Propionate (Flonase 50 Mcg Nasal [place]) 1 SPRAY NA BID #1 BOT Prov: 06/29/17 Reported Medications ATENOLOL (Atenolol 50MG) 50 MG PO DAILY Omeprazole (Omeprazole 20MG) 20 MG PO DAILY #30 Zolpidem Tartrate (Zolpidem 10MG) 10 MG PO QHS #30 ALBUTEROL (Ventolin Hfa) 1 PUFF IH Q6H6 History Medical History General CAD? No Angina: No SD: No Hypertension? Yes Hyperlipidemia? No CHF? No DVT? No PE? No COPD? No Asthma? Yes Anemia? No GERD? Yes Gastric ulcers? No GI Bleed? No Hernia? No Thyroid Problems? No Hypothyroidism? No CVA? No Seizures? No Diabetes? No UTI? No Stones? No BPH? No GB Disease: Yes Nephritic Syndrome? No Asplenia? No Hepatitis? No Sickle Cell Disease? No Arthritis? No Migraines? No Cataracts? No Glaucoma? No MRSA? No HIV? No TB? No Anxiety? Yes Depression? No Cancer? Yes Site: NECK ([place]) More? No Immunization HX DT/Tetanus 1-4 Years Ago Flu NOT SURE Pneumonia NOT SURE Surgical Hx Previous Surgery?Y Gallbladd Tubal Ligation BIOSPY ON NECK HYSTERECTOMY Appendix Family History Family HX Diabetes No CAD No Hypertension Yes Hyperlipidemia No Cancer No TB No Social History Smoking Hx Packs/day < 1 Pack Alcohol Alcohol: No Review of Systems All Other Systems Reviewed and Negative Constitutional malaise, weakness Gastrointestinal abdominal pain, denies diarrhea, denies vomiting Genitourinary dysuria. Physical Exam Vital Signs Vital Signs Date Time Temp Pulse Resp B/P Pulse O2 O2 Flow FiO2 Ox Delivery Rate 07/12 1354 98.6 67 20 120/75 96 General Appearance normal appearance, no apparent distress Ear, Nose, Throat normal ENT inspection Respiratory Status No: respiratory distress, trachea midline, chest symmetrical. Lung Sounds bilateral: normal breath sounds, lungs clear. Cardiovascular normal exam, regular rate/rhythm, no peripheral edema, no gallop, no JVD, no murmur, no rub Gastrointestinal normal bowel sounds, normal exam, non tender Back no CVA tenderness Extremities non-tender, normal range of motion, normal inspection, normal capillary refill Neurologic alert, normal exam, oriented x 3 Mental status normal mood/affect Medical Decision Making LABS/Meds/Orders Pt receiving controlled substance in ED? No Results/Orders Laboratory Tests 07/12/17 1419: Urine Color YELLOW, Urine Appearance CLEAR, Urine pH 5.5, Ur Specific [place] 1.030, Urine Protein NEGATIVE, Urine Ketones NEGATIVE, Urine Blood TRACE H, Urine Nitrate NEGATIVE, Urine Bilirubin 1+ H, Urine Urobilinogen 2 H, Ur Leukocyte Esterase NEGATIVE, Urine Glucose NEGATIVE 07/12/17 1410: Sodium 138, Potassium 3.4 L, Chloride 103, Carbon Dioxide 30, BUN 15, Creatinine 1.0, Estimated Creat Clear 120, Estimated GFR (MDRD) 59, Glucose 83, Calcium 8.9, Total Bilirubin 0.4, AST 14 L, ALT 24, Alkaline Phosphatase 86, Total Protein 7.5, Albumin 3.5, Globulin 4.0 H, Albumin/Globulin Ratio 0.9 L, WBC 6.6, RBC 4.63, Hgb 12.7, Hct 39.4, MCV 85.0, RDW 14.9, Plt Count 270, MPV 8.0, Gran % 62.8, Gran # 4.1, Lymphocytes % 25.7, Monocytes % 5.5, Eosinophils % 4.8, Basophils % 1.2, Lymphocytes # 1.7, Monocytes # 0.4, Eosinophils # 0.3, Basophils # 0.1, PUBS MCHC 32.2, MCH 27.4 Orders Procedure Date/time Status UTC URINE DIPSTICK 07/12 1419 Complete KUB (SINGLE VIEW) 07/12 1405 Active CBC WITH AUTO DIFF 07/12 1405 Complete CHEM 12 PROFILE 07/12 1405 Complete XRAY/CT/US XRAY/CT/US XRAY KUB XR interpretation by reviewed by me Xray Results retained stool Departure Departure Time of Disposition 152 Disposition DC Home or Self Care(routine) Clinical Impression Primary Impression: Abdominal pain Qualifiers: Abdominal location: generalized Qualified Code: R10.84 - Generalized abdominal pain Secondary Impressions: Constipation Qualifiers: Constipation type: unspecified constipation type Qualified Code: K59.00 - Constipation, unspecified Condition STABLE Referrals [facility] (Family) Patient Instructions DI for Constipation Additional Instructions Increase fluids, fiber Discharge Counseling Counseled pt/family regarding diagnosis, test results, medications/RX, home care, follow up needs Prescriptions Current Visit Scripts Polyethylene Glycol (Miralax Powder 255 Gm Bottle) 2 TSP PO DAILY #1 POW at 1537
[2017-07-12 14:21] LABS: URINE BILIRUBIN - DIPSTICK 1+ (NEG); URINE BLOOD TRACE (NEG)
[2017-07-12 14:23] LABS: HEMOGLOBIN 12.7 g/dL (12.2-16.2); LYMPH # 1.7 K/mm3 (0.7-4.5); LYMPH % 25.7 % (10-50.0)
[2017-07-12] MEDS ORDERED: MIRALAX PO255 GM/BOT PO (15:32)
[2017-07-12 15:35] VITALS: BP 120/75
--- NOTE | 2017-07-12 21:11 | RADIOLOGY REPORT PS360 ---
KUB (SINGLE VIEW) HISTORY: ABD PAIN ORDERING PHYSICIAN: NELLY GEE PATIENT AGE: 51 years COMPARISON: None FINDINGS: The bowel gas pattern is unremarkable. No obvious obstruction.. No abnormal calcifications are evident. No obvious renal or ureteral calculi.. No acute bony anomalies evident. There is mild amount retained colonic feces. Surgical clips are present in right upper quadrant IMPRESSION: No acute finding
== END 2017-07-12 15:36 | disposition home or self-care (01) ==
LOC: UTC 13:16 → ER 13:18 → UTC 15:36
PROVIDERS: Emergency Medicine
DX: R51 Headache (principal); I10 Essential (primary) hypertension; J45.909 Unspecified asthma, uncomplicated; K21.9 Gastro-esophageal reflux disease without esophagitis; F41.9 Anxiety disorder, unspecified; F17.210 Nicotine dependence, cigarettes, uncomplicated

== ENCOUNTER 2017-07-29 22:15 | Emergency (ER) | payer MEDICAID ==
[~2017-07-29] VITALS: Ht 165.1 cm; Wt 97.5 kg
[~2017-07-29 22:15] MED LIST changes: +MIRALAX PO255 GM/BOT PO
[2017-07-29] MEDS ORDERED: SERTRALINE 100100 MG PO (22:25)
[2017-07-29] MEDS ORDERED: TRAZADONE HYDR100 MG PO (22:25)
--- OUTSIDE RECORDS SUMMARY | 2017-07-29 22:41 | External Medical Summary Rpt | CCD ---
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 4- 4- 00 SI 63 HE [...] 4- 4- 00 [address] 02 20 20 DE NS ED 20 [...] NS E CY NT HI AN A CT 00 12 12 0 [address] Ac OC 09 -0 -[address] 25 EP ti HL 39 3- 3- 00 SI 23 HE ve OR 65 20 20 DE NS PE 20 10 10 RA 1 PH DO ZI AR N NE MA R CY 10 OF MG CY TA NT B HI AN A TO 13 10 12 [...] -2 -[address] 30 4- 4- 00 SI 63 HE [...] OF ET CY NT HI AN A CT 00 11 11 0 20 5 EA [...] -2 -[address] 30 5- 4- 00 SI 22 HE [...] # TA 10 BL 05 ET 91 00 09 10 1 30 30 EA [...] UL E CY NT HI AN A HY 00 [...] CY NT TA HI B AN A PEREZ 53 10 10 0 [...] P NT HI AN A ME 00 10 10 0 [address] Ac TH 78 -0 -[address] 38 EP ti YL 15 4- 4- 00 SI [address] 02 20 20 DE NS ED 20 10 10 NI 7 PH DO SO AR N LO MA R NE CY 4 OF MG CY DO NT SE HI PK AN A LO 45 10 10 2 [address] Ac RA 80 -0 -[address] 38 EP ti TA 20 4- 4- 00 SI 78 HE ve DI 65 20 20 DE NS NE 08 10 10 7 PH DO 10 AR N MA R MG CY TA OF BL ET CY NT HI AN A 59 08 09 3 15 [...] -2 -[address] 30 5- 2- 00 SI 22 HE ve OL 73 20 20 DE NS OL 31 10 10 0 PH DO TA AR N RT MA R RA CY TE OF 50 CY MG NT HI TA AN B A 00 09 09 1 30 30 [...] UL E CY NT HI AN A HY 00 09 09 1 30 [...] NT TA HI B AN A 59 09 09 0 8. [...] OF ET CY NT HI AN A CT 00 08 08 0 16 4 EA [...] 0- 0- 00 SI [address] 50 20 20 DE NS AM 91 [...] -2 -[address] 30 5- 3- 00 SI 22 HE [...] 20 20 DE CE [address] TA [address] AR AE N- MA L CA CY [...] -2 -[address] 30 5- 5- 00 SI 22 HE [...] -2 -[address] 30 5- 6- 00 SI 22 HE [...] CY OF CY NT HI AN A NO 00 01 06 [...] NT P HI AN A AC 00 01 06 [...] ST 94 HR ti AL 33 1- 1- 00 SI 08 MA ve EX 14 20 20 DE N IN 70 10 10 II 5 PH I 50 AR WI 0 MA LL MG CY IA M CA OF E PS UL CY E NT HI AN A CT 00 06 06 0 12 3 EA 17 WE Ac OM 78 -1 -[address] 94 HR ti ET 11 1- 1- 00 SI 09 MA ve PARKER 83 20 20 DE N ZI 01 10 10 II NE 0 PH I AR WI 25 MA LL CY IA MG M OF E TA BL CY ET NT HI AN A 00 06 06 [...] P NT HI AN A SE 16 03 [...] -2 -[address] 30 5- 5- 00 SI 22 HE [...] 20 RT 2 AC [address] 1 PH CH SO AR AE D [...] 20 20 DE IN [address] 5 PH CH 50 AR AE 0 MA L MG CY S CA OF PS UL CY E NT HI AN A ME 00 12 04 [address] Ac TO 09 -2 -[address] 30 2- 4- 00 SI 71 HE [...] CY UL NT E HI AN A AC 00 01 04 [...] UL CY E NT HI AN A CT 00 04 04 0 16 3 EA [...] CY BL NT ET HI AN A CT 00 03 03 0 12 3 EA [...] -2 -[address] 30 2- 2- 00 SI 71 HE ve OL 73 20 20 DE NS OL 31 09 10 0 PH DO TA AR N RT MA R RA CY TE OF 50 CY MG NT HI TA AN B A CT 00 03 03 12 3 RI 82 [...] CY CA NT P HI AN A CT 00 03 03 0 28 7 EA [...] 20 RT 3 YC [address] IN 8 PH CH AR AE 25 MA L 0 CY S MG #5 TA 91 BL ET IN 00 01 01 00 60 10 [...] NT HI AN A HY 00 01 00 [address] [...] -2 -[address] 30 2- 8- 00 SI 71 HE ve OL 73 20 20 DE NS OL 31 09 10 0 PH DO TA AR N RT MA R RA CY TE OF 50 CY NT MG HI AN TA A B 00 12 01 00 20 5 EA [...] -2 -[address] 30 2- 1- 00 SI 71 HE [...] ET NT HI AN A CY 00 12 12 00 15 5 EA 15 WE Ac CL 59 -1 -[address] 59 HR ti OB 15 5- 1- 00 SI 46 MA ve EN 65 20 20 DE N ZA [address] 1 PH I IN AR WI E [...] AR N MA R CY #5 91 AC 00 08 12 03 60 30 EA 13 OC Ac ET 55 -2 -[address] 98 ON ti AZ 50 5- 7- 00 SI 88 NE ve OL 51 20 20 DE LL AM 30 09 09 ID 2 PH PATTI E AR HN ER MA CY 50 0 OF MG CY NT CA HI P AN A NO 00 08 12 03 [...] -1 -[address] 30 7- 3- 00 SI 68 HE ve OL 73 20 20 DE NS OL 31 09 09 0 PH DO TA AR N RT MA R RA CY TE OF 50 CY NT MG HI AN TA A B RA 53 11 12 00 60 30 [...] 00 [address] 09 -1 -[address] 15 EP [...] TA NT BL HI ET AN A CE 00 11 11 00 21 7 RI 80 GA Ac PH 14 -0 -1 .0 TE 72 IN ti AL 39 4- 9- 00 67 EY ve EX 89 20 20 AI IN [address] 1 PH CH 50 AR AE 0 M L MG #3 S 93 CA 8 PS UL E CI 00 11 11 00 14 7 EA [address] 14 -1 -[address] 07 IN ti OF 39 0- 9- 00 SI 01 EY ve LO 92 20 20 DE XA [address] CI 1 PH CH N AR AE HC MA L L CY S 50 0 OF MG CY NT TA HI B AN A NO 00 08 11 02 [...] 20 20 AI [address] 5 PH CH AR AE M L #3 S 93 8 ME 00 07 11 03 [address] Ac TO 09 -1 -[address] 30 7- 5- 00 SI 68 HE ve OL 73 20 20 DE NS OL 31 09 09 0 PH DO TA AR N RT MA R RA CY TE OF 50 CY NT MG HI AN TA A B AC 00 08 11 02 60 30 [...] MA R CY #5 91 SE 16 07 10 02 15 30 [...] -1 -[address] 30 7- 4- 00 SI 68 HE [...] HI E AN A AC 00 08 09 00 [...] P AN A BU 00 08 08 [address] Ac TA 59 -1 -[address] 90 EP ti LB 13 9- 7- 00 SI 95 HE ve -A 36 20 20 DE NS CE 90 09 09 TA [address] AR N N- MA R CA CY FF OF 50 CY -3 NT 25 HI -4 AN 0 A ME 00 07 08 01 [address] Ac TO 09 -1 -[address] 30 7- 7- 00 SI 68 HE [...] 20 20 DE CE [address] TA [address] AR AE N- MA L CA CY S FF OF 50 CY -3 NT 25 HI -4 AN 0 A BU 00 07 07 00 12 3 EA 13 GA Ac TA 59 -2 -[address] 60 IN ti LB 13 3- 0- 00 SI 05 EY ve -A 36 20 20 DE CE [address] TA [address] AR AE N- MA L CA CY [...] 20 RT 3 AC [address] 1 PH CH SO AR AE D MA L EC CY S 75 #5 91 MG TA B ME 00 07 07 [address] Ac TO 09 -1 -[address] 30 7- 0- 00 SI 68 HE [...] 20 20 DE CE [address] TA [address] AR AE N- MA L CA CY S FF OF 50 CY -3 NT 25 HI -4 AN 0 A 00 06 07 00 8. 2 WA 44 GA Ac 40 -2 -0 00 L- 77 IN ti 60 0- 2- 0 MA 57 EY ve 35 20 20 RT [address] 5 PH CH AR AE MA L [...] -0 -[address] 30 9- 8- 00 SI 33 HE ve OL 73 20 20 DE NS OL 31 09 09 0 PH DO TA AR N RT MA R RA CY TE OF 50 CY NT MG HI AN TA A B TO 50 06 06 00 [address] Ac PA 45 -0 -[address] 03 EP ti MA 80 5- 8- 00 SI 08 HE ve X 63 20 20 DE NS 25 96 09 09 5 PH DO MG AR N MA R TA CY BL ET OF CY NT HI AN A SE [...] 20 20 DE CE [address] TA [address] AR AE N- MA L CA CY [...] -0 -[address] 30 9- 1- 00 SI 33 HE [...] NT HI AN A ME 00 02 04 02 [address] Ac TO 09 -0 -[address] 30 9- 3- 00 SI 33 HE ve OL 73 20 20 DE NS OL 31 09 09 0 PH DO TA AR N RT MA R RA CY TE OF 50 CY NT MG HI AN TA A B CT 00 04 04 00 12 3 EA 12 WI Ac OM 78 -0 -[address] 25 CK ti ET 11 8- 3- 00 SI 91 ER ve PARKER 83 20 20 DE ZI 01 09 09 JE NE 0 PH FF AR RE 25 MA Y CY MG OF TA CY BL NT ET HI AN A 00 12 04 03 [address] Ac 04 -2 -[address] 83 EP ti 50 6- 9- 00 SI 08 HE ve 63 20 20 DE NS 96 08 09 5 PH DO AR N MA R CY OF CY NT HI AN A CT 00 03 04 01 [address] Ac OC 09 -1 -[address] 89 EP ti HL 39 3- 9- 00 SI 23 HE ve OR 65 20 20 DE NS PE 20 09 09 RA 1 PH DO ZI AR N NE MA R CY 10 OF MG CY NT TA HI B AN A 00 03 03 00 [address] Ac 09 -1 -[address] 89 EP ti 37 3- 6- 00 SI 24 HE ve 17 20 20 DE NS 75 09 09 6 PH DO AR N MA R CY OF CY NT HI AN A CT 00 03 03 00 12 3 EA [...] -0 -[address] 30 9- 6- 00 SI 33 HE ve OL 73 20 20 DE NS OL 31 09 09 0 PH DO TA AR N RT MA R RA CY TE OF 50 CY NT MG HI AN TA A B HY 00 03 03 00 60 20 [...] CY OF CY NT HI AN A CT 00 02 03 00 [address] Ac OC 09 -2 -[address] 66 EP ti HL 39 7- 2- 00 SI 66 HE ve OR 65 20 20 DE NS PE 20 09 09 RA 1 PH DO ZI AR N NE MA R CY 10 OF MG CY NT TA HI B AN A 00 02 03 00 12 [...] -0 -[address] 30 9- 6- 00 SI 33 HE [...] 65 20 20 DE [address] 5 PH CH AR AE MA L CY S OF CY NT HI AN A ME 00 02 02 00 21 6 EA 11 GA Ac TH 78 -1 -[address] 44 IN ti YL 15 2- 6- 00 SI [address] 02 20 20 DE ED [address] NI 7 PH CH SO AR AE [...] BL CY ET NT HI AN A CT 00 01 01 00 28 7 EA [...] -0 -[address] 30 9- 5- 00 SI 40 HE [...] 20 20 DE AC [address] 1 PH CH SO AR AE D [...] -1 -[address] 30 1- 8- 00 SI 48 HE [...] 20 DE NS ZA [address] 1 PH DO IN AR N E MA R 10 CY MG OF CY TA NT BL HI ET AN A 00 01 12 11 [address] Ac 09 -0 -1 .0 L- 55 EP ti 37 8- 8- 00 MA 17 HE ve 17 20 20 RT 7 NS 75 08 08 6 PH DO AR N MA R CY #5 91 HY 00 12 12 00 [address] 55 -0 -[address] 53 EP ti OX 50 3- 8- 00 SI 02 HE ve YZ 32 20 20 DE NS IN 30 08 08 E 4 PH DO PA AR N M MA R 25 CY MG OF CY CA NT P HI AN A CY 00 11 12 [address] Ac CL 59 -2 -[address] 43 EP ti OB 15 6- 4- 00 SI 44 HE ve EN 65 20 20 DE NS ZA [address] 1 PH DO IN AR N E MA R 10 CY MG OF CY TA NT BL HI ET AN A CT 00 11 12 00 28 7 EA [...] CY ET NT HI AN A 00 01 11 [...] CY OF CY NT HI AN A CT 00 11 11 01 28 7 EA [...] -1 -[address] 30 1- 0- 00 SI 48 HE [...] CY NT HI AN A 00 09 11 02 60 [...] 90 08 08 [address] AR N N- MA R CA CY FF OF 50 CY -3 NT 25 HI -[address] 00 10 11 [address] Ac OM 78 -2 -[address] 93 EP ti ET 11 0- 7- 00 SI 32 HE ve PARKER 83 20 20 DE NS ZI 01 08 08 NE 0 PH DO AR N 25 MA R CY MG OF TA CY BL NT ET HI AN A HY 00 09 11 [...] 90 08 08 TA [address] AR N N- MA R CA CY FF OF 50 CY -3 NT 25 HI -[address] 00 10 11 00 20 4 EA [...] R CY #5 91 ME 00 08 10 02 30 30 EA 99 No Ac TO 09 -1 -[address] 30 1- 3- 00 SI 48 Av [...] CY NT HI AN A CY 00 10 10 00 15 5 EA 99 No Ac CL 59 -0 -[address] 69 t ti OB 15 SI 09 Av ve EN 65 20 20 DE ai ZA [address] 1 PH bl IN AR e E MA 10 CY MG OF CY TA NT BL HI ET AN A HY 00 09 10 01 [...] ET HI AN A HY 00 05 10 00 60 20 EA [address] 55 -0 -[address] 38 t ti OX 50 8 00 SI 59 Av ve YZ 32 20 20 DE ai IN 30 08 08 la E 4 PH bl PA AR e M MA 25 CY MG OF CY CA NT P HI AN A 00 09 00 60 30 EA 99 No Ac 04 -0 -[address] 38 t ti 50 8 00 SI 58 Av ve 63 20 20 DE ai 96 08 08 la 5 PH bl AR e MA CY OF CY NT HI AN A 00 09 00 28 6 EA 99 No Ac 78 -0 -[address] 38 t ti 11 6 00 SI 61 Av ve 26 20 20 DE ai 20 08 08 la 1 PH bl AR e MA CY OF CY NT HI AN A 00 01 09 08 [address] Ac 09 -0 -2 .0 L- 55 EP ti 37 - 6 MA 17 HE ve 17 20 20 RT 7 NS 75 08 08 6 PH DO AR N MA R CY #[address] 00 09 09 00 12 3 EA 99 No Ac OM 78 -0 -[address] 38 t ti ET 11 SI 60 Av ve PARKER 83 20 20 DE ai ZI 01 08 08 la NE 0 PH bl AR e 25 MA CY MG OF TA CY BL NT ET HI AN A ME 00 08 09 01 30 30 EA 99 No Ac TO 09 -1 -[address] 30 SI 48 Av ve OL 73 20 20 DE ai OL 31 08 08 la 0 PH bl TA AR e RT MA RA CY TE OF 50 CY NT MG HI AN TA A B ME 00 08 09 00 21 6 EA 99 No Ac TH 78 -2 -[address] 27 t ti YL 15 9- - 00 SI [address] 02 20 20 DE ai ED 20 [...] 11 t ti AM 90 6- 8 SI 20 Av ve ET 14 20 20 DE ai HO 60 08 08 la XA 1 PH bl ZO AR e LE MA -T CY MP OF DS CY NT TA HI BL AN ET A 00 05 08 03 60 30 [...] NT HI AN A ME 00 08 08 00 30 30 EA 99 No Ac TO 09 -1 -[address] 30 1 8 SI 48 Av ve OL 73 20 20 DE ai OL 31 08 08 la 0 PH bl TA AR e RT MA RA CY TE OF 50 CY NT MG HI AN TA A B 00 07 08 01 24 6 EA [...] NT P HI AN A PEREZ 53 07 08 [...] NT TA HI BL AN ET A 17 07 08 00 17 17 [...] 08 08 la TA [address] AR e N- MA CA CY FF [...] -0 -[address] 30 9- 7- 00 SI 10 Av ve OL 73 20 20 DE ai OL 31 08 08 la 0 PH bl TA AR e RT MA RA CY TE OF 50 CY NT MG HI AN TA A B 00 01 07 06 [address] Ac 09 -0 -1 .0 L- 55 EP ti 37 8- 7- 00 MA 17 HE ve 17 20 20 RT 7 NS 75 08 08 6 PH DO AR N MA R CY #5 91 00 05 07 02 60 30 EA [...] 08 08 la TA [address] AR e N- MA CA CY FF OF 50 CY -3 NT 25 HI -4 AN 0 A 00 01 07 05 30 30 WA 69 No Ac 78 -0 -0 .0 L- 55 t ti 11 8- 3- 00 MA 17 Av ve 22 20 20 RT 9 ai 31 08 08 la 0 PH bl AR e MA CY #5 91 00 06 07 00 [...] e MA CY #5 91 00 05 07 01 60 30 EA [...] 08 08 la TA [address] AR e N- MA CA CY FF [...] MG CY TA #[address] 00 06 07 00 12 3 EA 98 No Ac OM 78 -2 -[address] 52 t ti ET 11 7- 3- 00 SI 29 Av ve PARKER 83 20 20 DE ai ZI 01 08 08 la NE 0 PH bl AR e 25 MA CY MG OF TA CY BL NT ET HI AN A BU 00 05 06 03 28 5 EA 97 No Ac TA 59 -1 -[address] 98 t ti LB 13 4- 2- 00 SI 36 Av ve -A 36 20 20 DE ai CE 90 08 08 la TA [address] AR e N- MA CA CY FF OF 50 CY -3 NT 25 HI -4 AN 0 A BU 00 05 06 02 28 5 EA 97 No Ac TA 59 -1 -[address] 98 t ti LB 13 4- 5- 00 SI 36 Av ve -A 36 20 20 DE ai CE 90 08 08 la TA [address] AR e N- MA CA CY FF [...] e MA CY #5 91 00 01 05 04 30 [...] 08 08 la TA [address] AR e N- MA CA CY FF OF 50 CY -3 NT 25 HI -[address] 00 04 05 00 28 7 WA [...] 3- 4- 00 MA [address] 59 20 20 RT 7 ai ED 31 08 08 la NI 5 PH bl SO AR e LO MA NE CY 4 #5 MG 91 DO SE PK RA 00 01 04 02 60 30 [...] 00 10 5 EA [address] 00 -0 -[address] 12 t [...] 08 08 la TA [address] AR e N- MA CA CY FF #5 50 91 -3 25 -4 0 BU 00 01 03 01 30 7 WA 69 No Ac TA 14 -0 -2 .0 L- 55 t ti LB 31 8- 5- 00 MA 17 Av ve -A 78 20 20 RT 8 ai CE 70 08 08 la TA [address] AR e N- MA CA CY FF #5 50 91 -3 25 -4 0 63 01 03 00 21 7 WA 69 No Ac 30 -2 -2 .0 L- 57 t ti 40 2- 5- 00 MA 11 Av ve 65 20 20 RT 4 ai 70 08 08 la 1 PH bl AR e MA CY #5 91 00 01 03 00 30 30 WA [...] 08 08 la TA [address] AR e N- MA CA CY FF #5 50 91 -3 25 -4 0 RA 00 01 03 00 60 30 [...] bl AR e MA CY #5 91 Vital Signs 12-26-2012 00:48 Name Value Interpretat [...] Order Detail nces retati t Range on Urinalysis by dipstick (07-12-2017 14:19) Urine CLEAR CLEAR complet appeara 017 CLEAR L ed nce 14:19 determi [facility] Urine 1+ 1+ L NEG complet total 017 ed bilirub 14:19 in detecti on by test Comment: Comment: BILIRUBIN CONFIRMED WITH ICTOTEST Urine TRACE NEG complet blood 017 TRACE L ed detecti 14:19 on Urine YELLOW YELLOW complet color 017 YELLOW ed 14:19 L Glucose = NEG complet ur 017 NEGATIV ed test 14:19 E strip Urine NEGATIV NEG complet ketones 017 E ed 14:19 NEGATIV detecti E L on by mg/dL automat ed jaya Urine = 5.5 5.0-8.5 complet pH 017 ed 14:19 Urine = NEG complet protein 017 NEGATIV ed 14:19 E mg/dL measure ment by automat ed t Urine = 1.030 1.005-1 complet specifi 017 .030 ed c 14:19 gravity measure ment Urine NEGATIV NEG complet leukocy 017 E ed te 14:19 NEGATIV esteras E L e detecti on by au Urine NEGATIV NEG complet nitrite 017 E ed 14:19 NEGATIV detecti E L on by test strip Urine 2 2 L NEG complet urobili 017 E.U./dL ed nogen 14:19 detecti on by test str CBC w auto diff (07-12-2017 14:10) Blood = 39.4 37.0-47 complet hematoc 017 % .0 ed rit 14:10 (volume fractio n) Automat = 0.1 0-0.2 complet ed 017 K/MM3 ed blood 14:10 basophi l count (count/ vo Baso % = 1.2 % 0.1-2.0 complet 017 ed 14:10 Automat = 0.3 0.0-0.4 complet ed 017 K/mm3 ed blood 14:10 eosinop hil count Automat = 4.8 % 0.1-12. complet ed 017 0 ed blood 14:10 eosinop hils/10 0 leukocy t Blood = 4.1 1.8-7.8 complet granulo 017 K/mm3 ed cytes 14:10 automat ed count (numb Granulo = 62.8 37.0-80 complet cyte 017 % .0 ed percent 14:10 age Blood = 12.7 12.2-16 complet hemoglo 017 g/dL .2 ed bin 14:10 measure ment (mass/v olum Absolut = 1.7 0.7-4.5 complet e 017 K/mm3 ed lymphoc 14:10 yte count Lymphoc = 25.7 10-50.0 complet yte 017 % ed count, 14:10 blood, automat ed Mean = 27.4 27-31.2 complet corpusc 017 pg ed ular 14:10 hemoglo bin (MCH) determ Automat = 32.2 31.8-35 complet ed 017 g/dl .4 ed erythro 14:10 cyte mean corpusc ular h Automat = 85.0 82.2-97 complet ed 017 fl .8 ed erythro 14:10 cyte mean corpusc ular v Absolut = 0.4 0.1-1.0 complet e 017 K/mm3 ed monocyt 14:10 e count Foster % = 5.5 % 1.7-9.3 complet 017 ed 14:10 Automat = 8.0 7.4-10. complet ed 017 fl 4 ed blood 14:10 platele t mean volume ileana Blood = 270 142-424 complet platele 017 K/mm3 ed t count 14:10 Red = 4.63 4.2-5.4 complet blood 017 M/mm3 ed cell 14:10 count Automat = 14.9 11.5-17 complet ed 017 % .5 ed erythro 14:10 cyte distrib ution width Blood = 6.6 4.8-10. complet leukocy 017 K/MM3 8 ed jaya 14:10 count (number /volume ) Comprehensive metabolic panel (07-12-2017 14:10) Serum = 14 15-37 complet or 017 U/L ed plasma 14:10 asparta te aminotr ansfera ALT = 24 12-78 complet (SGPT) 017 U/L ed ser/francia 14:10 s Protein = 7.5 6.4-8.2 complet total 017 gm/dL ed ser/francia 14:10 s Serum = 0.9 1.1-1.8 complet or 017 ed plasma 14:10 albumin /globul in mass ra Serum = 3.5 3.4-5.0 complet or 017 gm/dL ed plasma 14:10 albumin measure ment (mas Serum = 86 46-116 complet or 017 U/L ed plasma 14:10 alkalin e phospha tase ileana Serum = 0.4 0.2-1.0 complet or 017 mg/dL ed plasma 14:10 total bilirub in measure m Serum = 15 7-18 complet or 017 mg/dL ed plasma 14:10 urea nitroge n measure men Serum = 8.9 8.5-10. complet or 017 mg/dL 1 ed plasma 14:10 calcium measure ment (mas Serum = 103 98-107 complet or 017 mmoL/L ed plasma 14:10 chlorid e measure ment (mo Carbon = 30 21.0-32 complet dioxide 017 mmoL/L .0 ed 14:10 measure ment Serum = 1.0 0.55-1. complet or 017 mg/dL 02 ed plasma 14:10 creatin ine measure ment ( Estimat = 120 50-200 complet ion of 017 ML/MIN ed creatin 14:10 ine renal clearan ce Estimat = 59 59- complet ed 017 ML/MIN ed glomeru 14:10 lar filtrat ion rate (GF Comment: REFERENCE RANGE: >60 ML/MIN/1.73 SQUARE METERS Comment: If this patient is -[place], then multiply the Comment: result by 1.210. Serum = 4.0 1.3-3.2 complet globuli 017 gm/dL ed n 14:10 measure ment (mass/v olume) Serum = 83 74-106 complet or 017 mg/dL ed plasma 14:10 glucose measure ment (mas Serum = 3.4 3.5-5.1 complet potassi 017 mmoL/L ed um 14:10 measure ment Serum 11-11-2 = 138 136-145 complet sodium 017 mmoL/L ed measure 14:10 ment Rapid influenza A and B antigen detectio (06-29-2017 18:39) Influen NOT NOT complet za A ag 017 DETECTE DETECTD ed QL 18:39 D NOT DETECTE D L INFLUEN NOT NOT complet ZA B 017 DETECTE DETECTD ed ANTIGEN 18:39 D Comment: LOT # @[id number] EXP DATE @05-20-30 Screening group A Streptococcus antigen (06-29-2017 18:39) Screeni NOT NOTDETE complet ng 017 DETECTE CTED ed group A 18:39 D NOT DETECTE Strepto D L coccus antigen Comment: LOT # [id number] EXP DATE @2019-05-04 Procedures Procedure DOS Code Location Performer Comment [facility] [address] [place] [facility] W/DRAINAG INC INC E SKIN&SUBC UTANEOUS TISSUE [facility] [address] [place] [facility] W/DRAINAG INC INC E SKIN&SUBC UTANEOUS TISSUE Encounters Encounter Start End Date Code Location Performer Type Date [facility] - [facility] - [facility] - [facility] [place] - 6 6 [facility] [place] - 6 6 [facility] [place] - 6 6 [facility] [place] - 6 6 [facility] [place] - 6 6 [facility] - 6 6 [facility] - 5 5 [facility] [place] - 5 5 [facility] [place] - 5 5 [facility] [place] - 4 4 [facility] [place] - 4 4 [facility] [place] - 4 4 [facility] [place] - [facility] 4 [facility] [place] [facility] OTHER 4 4 MED CTR, ATTN[facility] [place] - 3 3 [facility] OUT[facility]IEN [facility] [place] - 3 3 [facility] OUTPATIEN [facility] Emergency THERESA Headley (ER) 3 00:20 3 00:48 [facility] [place] - 3 3 [facility] [...] [place] - 2 2 [facility] [place] - 2 2 [facility] [place] - 2 2 [facility] [place] - 2 2 [facility] [place] - 2 2 [facility] [place] - 2 2 [facility] 1 [facility] 1 [facility] 1 [facility] 1 [facility] 1 1 [facility] 0 0 [facility] [place] - 9 9 [facility] 9 [facility] 9 [facility] 8 [facility] [facility]
--- OUTSIDE RECORDS SUMMARY | 2017-07-29 22:41 | External Medical Summary Rpt | CCD ---
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 70 08 08 la TA 1 PH bl MT AR e N- MA CA CY FF [...] 08 08 la TA 1 PH bl MT AR e N- MA CA CY FF [...] 017 CLEAR L ed nce 14:19 determi [facility] Urine 1+ 1+ L NEG complet total [...] 017 K/mm3 ed monocyt 14:10 e count [place] % = 5.5 % 1.7-9.3 complet 017 [...] SQUARE METERS Comment: If this patient is -[place]ian, then multiply the Comment: result by 1.210. [...] ed ANTIGEN 18:39 D Comment: LOT # @[id number] EXP DATE @05-20-30 Screening group A Streptococcus antigen (06-29-2017 18:39) Screeni NOT NOTDETE complet ng 017 DETECTE CTED ed group A 18:39 D NOT DETECTE Strepto D L coccus antigen Comment: LOT # @[id number] EXP DATE @2019-05-04 Procedures Procedure DOS Code Location Performer Comment [facility] [address] [place] [facility] W/DRAINAG INC INC E SKIN&SUBC UTANEOUS TISSUE [facility] [address] [place] [facility] [facility] W/DRAINAG INC INC E SKIN&SUBC UTANEOUS TISSUE Encounters Encounter Start End Date Code Location Performer Type Date [facility] [place] - 7 7 [facility] OUTPATIEN [facility] [place] - 7 7 [facility] [place]PATI[facility] [place] - 6 6 [facility] [place] - 6 6 [facility]PATI[facility] [place] - 6 6 [facility]PATIEN [facility] [place] - 6 6 [facility] [place] - 6 6 [facility] - 6 6 N [facility] [place] [place] - 5 5 [facility] [place] - 5 5 [facility] [place] - 5 5 [facility] [place] - 4 4 [facility] [place] - 4 4 [facility] [place] - 4 4 [facility] [place] - 4 4 [facility] [place] [facility] 4 [facility] [place] - OTHER 4 4 MED CTR, ATTN[facility] [place] - 3 3 [facility] OUTPATIEN [facility] [place] - 3 3 [facility]EN [facility] Emergency THERESA Headley (ER) 3 00[facility]20 3 00:48 [facility] [place] - 3 3 [facility] [place] [facility] [place] - 3 3 MEM [...] - 2 2 [facility] [place] - 2 2 [facility] [place] - 2 2 [facility] [place] - 2 2 [facility] [place] - 2 2 [facility] [place] - 2 2 [facility]EN [facility] [place] - 2 2 [facility] [place] - 2 2 [facility] [place] - 1 1 [facility] [place] - 1 1 [facility] [place] - 1 1 [facility] [place] - 1 1 [facility] [place] - 1 1 [facility] [place] - 1 1 [facility] [place] - 1 1 [facility] [place] - 1 1 [facility] [place] - 1 1 [facility] [place] 1 1 [facility] [place] - 0 0 [facility] [place] - 0 0 [facility]PATI[facility] [place] - 0 0 [facility]PATI[facility] [place] - 0 0 [facility] [place] - 0 0 [facility] [place] 0 0 [facility] [place] 0 0 [facility] [place] 0 0 [facility] [place] 0 0 [facility] [place] 0 0 [facility] [place] 0 0 [facility] [place] 0 0 [facility] [place] 0 0 [facility] [place] - 0 0 [facility] [place] [facility] 0 0 [facility] [place] [facility] 0 0 [facility] [place] [facility] 0 0 [facility] [place] - 0 0 [facility] [...] - 9 9 [facility] [place] - 9 9 [facility] [place] - 9 9 [facility] [place] - 9 9 [facility] [place] - 8 8 [facility] [place] - 8 8 [facility] [place] [facility] 8 8 [facility] [place] [facility] 8 8 [facility] [place] [facility] 8 8 [facility] [place] [facility] 8 8 [facility] [place] [facility] 8 8 [facility] [place] - 8 8 [facility] [place] - 8 8 [facility] [place] - 8 8 [facility] [place] - 8 8 [facility]
--- OUTSIDE RECORDS SUMMARY | 2017-07-29 22:58 | External Medical Summary Rpt | CCD ---
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 MG CY NT DO HI SE AN PK A 63 02 02 00 21 7 EA 11 GA Ac 30 -1 -[address] 44 IN ti 40 2- 6- 00 SI 31 EY ve 65 20 20 DE 70 09 09 NH 5 PH CH AR AE MA L [...] CY CA NT P HI AN A PA 00 01 01 [address] Ac OC 09 -1 -[address] 07 EP ti HL 39 3- 0- 00 SI 28 HE ve OR 65 20 20 DE NS PE 20 09 09 RA 1 PH DO ZI AR N NE MA R CY 10 OF MG CY NT TA HI B AN A ME 00 01 01 [address] Ac TO 09 -0 -[address] 03 EP ti PA 30 9- 5- 00 SI 40 HE [...] 20 20 DE AC 90 08 09 NH 1 PH CH SO AR AE D [...] -1 -[address] 03 EP ti PA 30 SI 48 HE ve OL 73 20 20 DE NS OL 31 08 08 0 PH DO TA AR N RT MA R RA CY TE OF 50 CY NT MG HI AN TA A B CY 00 11 12 01 [address] Ac CL 59 -2 -[address] 43 EP ti OB 15 6 SI 44 HE ve EN 65 20 20 DE NS ZA 80 08 08 PA 1 PH DO IN AR N E MA R 10 CY MG OF CY TA NT BL HI ET AN A HY 00 12 12 00 [address] 55 -0 -[address] 53 EP ti OX 50 3 8 SI 02 HE ve YZ 32 20 20 DE NS IN 30 08 08 E 4 PH DO PA AR N M MA R 25 CY MG OF CY CA NT P HI AN A 00 01 12 11 [address] Ac 09 -0 -1 .0 L- 55 EP ti 37 8 8 00 MA 17 HE ve 17 20 20 RT 7 NS 75 08 08 6 PH DO AR N MA R CY #5 91 49 08 12 03 [address] Ac 88 -1 -[address] 03 EP ti 40 1 8 SI 47 HE ve 54 20 20 DE NS 41 08 08 0 PH DO AR N MA R CY OF CY NT HI AN A PA 00 11 12 00 28 7 EA [...] 20 DE NS ZA 80 08 08 PA 1 PH DO IN AR N E [...] 90 08 08 TA 5 PH DO NH AR N N- MA R CA CY FF OF 50 CY -3 NT 25 HI -4 AN 0 A ME 00 08 11 03 [address] Ac TO 09 -1 -[address] 03 EP ti PA 30 1- 0- 00 SI 48 HE ve OL 73 20 20 DE NS OL 31 08 08 0 PH DO TA AR N RT MA R RA CY TE OF 50 CY NT MG HI AN TA A B 64 08 11 02 [address] Ac 67 -1 -[address] 03 EP ti 90 1- 0- 00 SI 47 HE ve 90 20 20 DE NS 60 08 08 3 PH DO AR N MA R CY OF CY NT HI AN A 00 11 11 [address] Ac 78 -0 -[address] 11 EP ti 11 3- 0- 00 SI 03 HE ve 26 20 20 DE NS 20 08 08 1 PH DO AR N MA R CY OF CY NT HI AN A PA 00 11 11 01 28 7 EA [...] 90 08 08 TA 5 PH DO NH AR N N- MA R CA CY [...] CY CA NT P HI AN A PA 00 10 11 [address] Ac OM 78 -2 -[address] 93 EP ti ET 11 0- 7- 00 SI 32 HE ve PARKER 83 20 20 DE NS ZI 01 08 08 NE 0 PH DO AR N 25 MA R CY MG OF TA CY BL NT ET HI AN A PA 00 10 11 00 20 4 EA [...] -1 -[address] 03 t ti PA 30 1- 3- 00 SI 48 Av [...] DE ai ZA 80 08 08 la PA 1 PH bl IN AR e E [...] -1 -[address] 03 t ti PA 30 1- 6- 00 SI 48 Av ve OL 73 20 20 DE ai OL 31 08 08 la 0 PH bl TA AR e RT MA RA CY TE OF 50 CY NT MG HI AN TA A B PA 00 09 09 00 12 3 EA 99 No Ac OM 78 -0 -[address] 38 t ti ET 11 8- 6- 00 SI 60 Av ve PARKER 83 20 20 DE ai ZI 01 08 08 la NE 0 PH bl AR e 25 MA CY MG OF TA CY BL NT ET HI AN A 00 01 09 08 [...] 9- 1- 00 SI 42 Av ve PA 02 20 20 DE ai ED 20 [...] .0 ST 76 t ti 11 8- 8 00 SI 40 Av ve 26 20 20 DE ai 20 08 08 la 1 PH bl AR e MA CY OF CY NT HI AN A ME 00 08 08 00 30 30 EA 99 No Ac TO 09 -1 -[address] 03 t ti PA 30 1 8 00 SI 48 Av ve OL 73 20 20 DE ai OL 31 08 08 la 0 PH bl TA AR e RT MA RA CY TE OF 50 CY NT MG HI AN TA A B PEREZ 53 08 08 00 20 10 [...] .0 L- 55 EP ti 37 8- 8 MA 17 HE ve 17 20 [...] .0 ST 84 t ti 00 5- 00 SI 01 Av ve 72 20 20 DE ai 10 08 08 la 1 PH bl AR e MA CY OF CY NT HI AN A 00 07 08 00 [...] 08 08 la TA 5 PH bl NH AR e N- MA CA CY FF [...] HI BL AN ET A HY 00 06 07 01 60 [...] 08 08 la TA 5 PH bl NH AR e N- MA CA CY FF OF 50 CY -3 NT 25 HI -4 AN 0 A ME 00 07 07 00 30 30 EA 98 No Ac TO 09 -0 -[address] 66 t ti PA 30 9- 7- 00 SI 10 Av [...] bl AR e MA CY #5 91 PA 00 06 07 00 12 3 EA [...] 08 08 la TA 5 PH bl NH AR e N- MA CA CY FF OF 50 CY -3 NT 25 HI -4 AN 0 A BU 00 05 06 03 28 5 EA 97 No Ac TA 59 -1 -[address] 98 t ti LB 13 4- 2- 00 SI 36 Av ve -A 36 20 20 DE ai CE 90 08 08 la TA 5 PH bl NH AR e N- MA CA CY FF [...] 08 08 la TA 5 PH bl NH AR e N- MA CA CY FF OF 50 CY -3 NT 25 HI -4 AN 0 A 00 05 05 00 60 30 EA [...] #5 BL 91 ET BU 00 05 05 00 28 5 EA 97 No Ac TA 59 -1 -[address] 98 t ti LB 13 4- 2- 00 SI 36 Av ve -A 36 20 20 DE ai CE 90 08 08 la TA 5 PH bl NH AR e N- MA CA CY FF [...] CY #5 91 00 01 05 04 15 30 WA 69 No Ac 09 -0 -2 .0 L- 55 t ti 37 8- 2- 00 MA 17 Av ve 17 20 20 RT 7 ai 75 08 08 la 6 PH bl AR e MA CY #5 91 LO 00 04 05 01 60 20 WA 44 No Ac RA 37 -0 -0 .0 L- 67 t ti ZE 82 9- 8- 00 MA 44 Av ve PA 45 20 20 RT 8 ai M 70 08 08 la 1 1 PH bl MG AR e MA TA CY BL ET #5 91 PA 00 04 05 00 28 7 WA [...] MA TA CY BL ET #5 91 ME 00 04 04 00 21 6 WA 69 No Ac TH 60 -1 -2 .0 L- 67 t ti YL 34 3- 4- 00 MA 91 Av ve PA 59 20 20 RT 7 ai ED [...] CY #5 91 00 01 04 03 30 [...] 00 10 5 EA 97 No Ac NH 00 -0 -[address] 12 t [...] 08 08 la TA 1 PH bl NH AR e N- MA CA CY FF #5 50 91 -3 25 -4 0 BU 00 01 03 01 30 7 WA 69 No Ac TA 14 -0 -2 .0 L- 55 t ti LB 31 8- 5- 00 MA 17 Av ve -A 78 20 20 RT 8 ai CE 70 08 08 la TA 1 PH bl NH AR e N- MA CA CY FF [...] .0 L- 55 t ti LB 31 MA 17 Av ve -A 78 20 20 RT 8 ai CE 70 08 08 la TA 1 PH bl NH AR e N- MA CA CY FF #5 50 91 -3 25 -4 0 Procedures Procedure DOS Code Location Performer Comment [facility] [address] [facility] W/DRAINAG INC INC E SKIN&SUBC UTANEOUS TISSUE [facility] [address] [facility] W/DRAINAG INC INC E SKIN&SUBC UTANEOUS TISSUE Encounters Encounter Start End Date Code Location Performer Type Date [facility] [place] [facility] [place] [facility] [place] [facility] [place] [facility] [place] [facility] [place] [facility] [place] - OTHER 4 4 MED [facility], ATTN[facility] [place] - [facility] [place] [facility] [place] [facility] [place] [facility] [place] [facility] [place] [facility] [place] [facility] [place] [facility] [place] [facility] [place] [facility] [place] [facility] [place] [facility] [place] [facility] [place] [facility] [place] [facility] [place] [facility] [place] [facility] [place] [facility] [place] [facility] [place] [facility] [place] [facility] [place] [facility] [place] [facility] [place] [facility] [place] [facility] 1 [facility] [place] [facility] [place] [facility] [place] [facility] [place] [facility] [place] [facility] [place] [facility] [place] [facility] [place] [facility] [place] [facility] [place] [facility] [place] [facility] [place] [facility] [place] [facility] [place] [facility] [place] [facility] [place] [facility] [place] [facility] [place] [facility] [place] [facility] [place] [place] [facility] [place] [facility] 9 9 [facility] [place] [facility] 9 [facility] [place] [facility] [place] [facility] [place] [facility] [place] [facility] [place] [facility] [place] [facility] [place] [facility] [place] [facility] [place] [facility] [place] [facility] [place] [facility] [place] [facility] [place] [facility] 9 9 [...] [facility]
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
--- OUTSIDE RECORDS SUMMARY | 2017-07-29 23:03 | External Medical Summary Rpt | CCD ---
Author Author , SHIMON ROBINS Address Unknown Phone [email or web address] Immunization Name Date Rout CVX Reac Dose Comm Prov Is Faci e tion ent ider Refu lity Give sed n Tdap 04-2 115 999 Hist H149 No H149 , 5-20 oric Adso 07 al rbed Info rmat ion - Sour ce Unsp ecif ied
--- OUTSIDE RECORDS SUMMARY | 2017-07-29 23:03 | External Medical Summary Rpt | CCD ---
Author Author , SHIMON ROBINS Address Unknown Phone [email or web address] Immunization Name Date Rout CVX Reac Dose Comm Prov Is Faci e tion ent ider Refu lity Give sed n Tdap 04-2 115 999 Hist H149 No H149 , 5-20 oric Adso 07 al rbed Info rmat ion - Sour ce Unsp ecif ied
--- NOTE | 2017-07-30 00:15 | Emergency Room Report ---
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 N Clinical Suspician of Infection? N Mental Status: 1 - Regular (Normal Baseline) Sepsis Risk:Possible Sepsis Risk Have you (or family members/close friends) recently traveled outside the [place]? N If Yes, where/when: Have you had exposure to infectious disease within the past month? N TB? Other? Specify: Source patient, RN notes reviewed, old records Exam Limitations no limitations Comment valdes with nausea and no fever or rash and no focal neuro sx Cardiac Chest Pain Chest pain indicative of cardiac No Timing/Duration this evening Severity moderate ALLERGIES Coded Allergies: Sulfa (Sulfonamide Antibiotics) (Mild, 09/03/16) morphine (Mild, 09/03/16) NSAIDS (Non-Steroidal Anti-Inflamma (UNKNOWN 09/03/16) escitalopram (From LEXAPRO) (UNKNOWN 09/03/16) ibuprofen (From MOTRIN) (12/10/16) Home Medications Reported Medications ATENOLOL (Atenolol 50MG) 50 MG PO DAILY Omeprazole (Omeprazole 20MG) 20 MG PO DAILY #30 Zolpidem Tartrate (Zolpidem 10MG) 10 MG PO QHS #30 Sertraline Hydrochloride (Sertraline 100MG) 100 MG PO DAILY #45 Trazodone Hcl (Trazodone HCl) 100 MG PO QHSP PRN SLEEP #30 ALBUTEROL (Ventolin Hfa) 1 PUFF IH Q6H6 History Medical History General CAD? No Angina: No ND: No Hypertension? Yes Hyperlipidemia? No CHF? No DVT? No PE? No COPD? No Asthma? Yes Anemia? No GERD? Yes Gastric ulcers? No GI Bleed? No Hernia? No Thyroid Problems? No Hypothyroidism? No CVA? No Seizures? No Diabetes? No End Stage Renal Disease? No UTI? No Stones? No BPH? No GB Disease: Yes Nephritic Syndrome? No Asplenia? No Hepatitis? No Sickle Cell Disease? No Arthritis? No Migraines? No Cataracts? No Glaucoma? No MRSA? No HIV? No TB? No Anxiety? Yes Depression? No Cancer? Yes Site: NECK (HODGKINS) More? No Immunization Hx DT/Tetanus 1-4 Years Ago Flu NOT SURE Pneumonia NOT SURE Surgical Hx Previous Surgery?Y Gallbladd Tubal Ligation BIOSPY ON NECK HYSTERECTOMY Appendix [employer] Hx LMP N/A Family History Family Hx Diabetes No CAD No Hypertension Yes Hyperlipidemia No Cancer No TB No Social History Smoking Hx Smoker: Current Every Day Smoker Tobacco: Yes Type Cigarettes Packs/day < 1 Pack Alcohol Alcohol: No Drugs none Review of Systems All Other Systems Reviewed and Negative Constitutional denies fever Eyes denies drainage ENT denies: ear discharge, epistaxis, throat pain. Respiratory denies cough, denies shortness of breath, denies wheezing Cardiovascular denies chest pain, denies syncope Gastrointestinal see HPI, denies abdominal pain, denies diarrhea, nausea, denies vomiting Genitourinary denies: dysuria, frequency, hesitancy, hematuria. Musculoskeletal denies back pain, denies joint pain, denies joint swelling, denies neck pain Skin denies rash Psychiatric/Neurological see HPI, headache, denies seizure Physical Exam Vital Signs Vital Signs Date Time Temp Pulse Resp B/P Pulse O2 O2 Flow FiO2 Ox Delivery Rate 07/29 2220 98.1 93 20 122/83 95 - WBC >12,000 or <4,000 or 10% bands? 2 or more SIRS Criteria Met? B/P:122/83 MAP:96 Creatinine >2.0? UA output<0.5ml/kg/hr for 2 hrs? Platelet count >100,000? Lactate >2.0mmol/1? INR >1.2 or PTT > than 60 sec? Evidence of Organ Dysfunction? Provider documented clinical suspician of infection? N Sepsis Criteria Count: 2 Sepsis Risk: Possible Sepsis Risk General Appearance no apparent distress Eye Exam - bilateral eye PERRL, bilateral eye EOMI Ear, Nose, Throat normal ENT inspection Neck supple Respiratory Status No: respiratory distress. 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 No Results/Orders Current Medication Orders Sig/Asad Start time Last Medication Dose Route Stop Time Status Admin Acetaminophen 1,000 MG ONCE ONE 07/29 2245 DC 07/29 PO 07/29 Ondansetron HCl 4 MG ONCE ONE 07/29 2245 DC 07/29 SL 07/29 Ondansetron HCl 0 .STK-MED ONE 07/29 2240 DC .ROUTE Acetaminophen 0 .STK-MED ONE 07/29 2239 DC PO Departure Departure Time of Disposition 12 Disposition DC Home or Self Care(routine) Clinical Impression Primary Impression: Headache Qualifiers: Headache type: unspecified Headache chronicity pattern: unspecified pattern Intractability: not intractable Qualified Code: R51 - Headache Condition STABLE Referrals [facility] BE (Family) Patient Instructions DI for Headache Additional Instructions use meds and see pcp for follow up Discharge Counseling Counseled pt/family regarding diagnosis, medications/RX, follow up needs ED Critical Care Critical Care No at 0018
[2017-07-30 00:28] VITALS: BP 94/64
== END 2017-07-30 00:33 | disposition home or self-care (01) ==
LOC: ER 22:15
DX: R51 Headache (principal); I10 Essential (primary) hypertension; Z88.6 Allergy status to analgesic agent; J45.909 Unspecified asthma, uncomplicated; K21.9 Gastro-esophageal reflux disease without esophagitis; F41.9 Anxiety disorder, unspecified; F17.210 Nicotine dependence, cigarettes, uncomplicated

== ENCOUNTER 2017-08-11 19:02 | Emergency (ER) | payer MEDICAID ==
[~2017-08-11] VITALS: Ht 165.1 cm; Wt 112.0 kg
[~2017-08-11 19:02] MED LIST changes: +SERTRALINE 100100 MG PO; +TRAZADONE HYDR100 MG PO
--- OUTSIDE RECORDS SUMMARY | 2017-08-11 19:11 | External Medical Summary Rpt | CCD ---
Author Author , SHIMON Organization SHIMON Address Unknown Phone [email or web address] Care Team Providers Care Finance Effectiveness Manager Name Role Phone [facility] [place]available [place], [facility] [place] [facility] Unavailable Unavailable [id number] [address] [phone], [facility] [id number] [address] [phone] [facility] # Unavailable Unavailable [id number], [facility] # [id number] Murray Velez III, MD, Murray Headley III, MD Purpose Continuity of Care Document - 10-30-2009 through 2016 Problems Code Diagnosis DOS Provider Status R30.0 DYSURIA 07-16-2017 719.41 719.41 12-26-2012 [facility] [id number] R11.10 VOMITING, UNSPECIFIED R51 HEADACHE R60.0 LOCALIZED EDEMA R79.89 OTHER SPECIFIED ABNORMAL FINDINGS OF BLOOD CHEMISTRY S53.402A UNSPECIFIED SPRAIN OF LEFT ELBOW, INITIAL ENCOUNTER Allergies, Adverse Reactions, Alerts Type Drug Allergy Adverse Reaction to Substance Substance Reaction Severity SULFA (sulfonamide) Unknown Unknown Bee Venom D-[id number]-ISYV/THROAT Unknown Medications Na ND Rx Da Fi [...] -0 -[address] 39 EP ti NM 30 4- 0- 00 SI 53 HE [...] 20 DE NS ZA 11 11 11 NM 0 PH DO IN AR N E [...] -0 -[address] 39 EP ti NM 30 4- 1- 00 SI 53 HE [...] 42 11 11 TA 8 PH DO NJ AR N N- MA R CA CY [...] -0 -[address] 39 EP ti NM 30 4- 1- 00 SI 53 HE [...] 20 DE NS ZA 11 11 11 NM 0 PH DO IN AR N E [...] MA R AU CY TO -I OF AK EC CY TO NT R HI AN A CY 00 07 07 1 [address] Ac CL 37 -1 -[address] 26 EP ti OB 80 2- 2- 00 SI 28 HE ve EN 75 20 20 DE NS ZA 11 11 11 NM 0 PH DO IN AR N E MA R 10 CY MG OF TA CY BL NT ET HI AN A NM 00 07 07 0 12 3 EA 23 WE Ac OM 78 -0 -[address] 24 HR ti ET 11 7- 1- 00 SI 79 MA ve PARKER 83 20 20 DE N ZI 01 11 11 II NE 0 PH I AR WI 25 MA LL CY IA MG M OF E TA BL CY ET NT HI AN A NM 00 07 07 0 12 3 EA [...] -0 -[address] 39 EP ti NM 30 4- 00 SI 53 HE ve [...] BL ET CY NT HI AN A NM 00 06 06 1 [address] Ac OM 78 -0 -[address] 80 EP ti ET 11 4- 4 SI 89 HE ve PARKER 83 20 20 DE NS ZI 01 11 11 NE 0 PH DO AR N 25 MA R CY MG OF TA BL CY ET NT HI AN A NM 00 06 06 1 28 7 EA [...] -0 -[address] 39 EP ti NM 30 4- 1- 00 SI 53 HE [...] -0 -[address] 39 EP ti NM 30 4- 4- 00 SI 53 HE [...] 42 11 11 TA 8 PH DO NJ AR N N- MA R CA CY [...] 6- 6- 00 SI 60 HE ve NM 02 20 20 DE NS ED 20 [...] 42 11 11 TA 8 PH DO NJ AR N N- MA R CA CY [...] -2 -[address] 13 EP ti NM 30 4- 8- 00 SI 63 HE [...] 42 11 11 TA 8 PH DO NJ AR N N- MA R CA CY [...] 42 11 11 TA 8 PH DO NJ AR N N- MA R CA CY FF OF 50 -3 CY 25 NT -4 HI 0 AN A ME 00 11 03 [address] Ac TO 09 -2 -[address] 13 EP ti NM 30 4- 1- 00 SI 63 HE [...] 47 EP ti OC 22 1- 1 SI 85 HE ve HL 08 [...] ST 14 IN ti ON 10 7- 7 SI 31 EY ve ID 33 20 20 DE AZ 40 11 11 NJ OL 1 PH CH E AR AE 50 MA L 0 CY S MG OF TA BL CY ET NT HI AN A NM 00 02 02 0 28 7 EA [...] -2 -[address] 13 EP ti NM 30 4- 5- 00 SI 63 HE [...] -2 -[address] 13 EP ti NM 30 4- 4- 00 SI 63 HE [...] 4- 4- 00 SI 73 HE ve NM 02 20 20 DE NS ED 20 [...] BL ET CY NT HI AN A NM 00 12 12 0 24 6 EA [...] -2 -[address] 13 EP ti NM 30 4- 4- 00 SI 63 HE [...] OF ET CY NT HI AN A NM 00 11 11 0 20 5 EA [...] -2 -[address] 73 EP ti NM 30 5- 4- 00 SI 22 HE [...] 4- 4- 00 SI 79 HE ve NM 02 20 20 DE NS ED 20 [...] -2 -[address] 73 EP ti NM 30 5- 2- 00 SI 22 HE [...] OF ET CY NT HI AN A NM 00 08 08 0 16 4 EA [...] 0- 0- 00 SI 89 HE ve NM 50 20 20 DE NS AM 91 [...] -2 -[address] 73 EP ti NM 30 5- 3- 00 SI 22 HE [...] 20 20 DE CE 42 10 10 NJ TA 8 PH CH NJ AR AE N- MA L CA CY [...] -2 -[address] 73 EP ti NM 30 5- 5- 00 SI 22 HE [...] -2 -[address] 73 EP ti NM 30 5- 6- 00 SI 22 HE [...] UL CY E NT HI AN A NM 00 06 06 0 12 3 EA 17 WE Ac OM 78 -1 -[address] 94 HR ti ET 11 1- 00 SI 09 MA ve PARKER [...] -2 -[address] 73 EP ti NM 30 5- 5- 00 SI 22 HE [...] 20 RT 2 AC 90 10 10 NJ 1 PH CH SO AR AE D [...] 20 20 DE IN 70 10 10 NJ 5 PH CH 50 AR AE 0 MA L MG CY S CA OF PS UL CY E NT HI AN A ME 00 12 04 [address] Ac TO 09 -2 -[address] 69 EP ti NM 30 2- 4- 00 SI 71 HE [...] UL CY E NT HI AN A NM 00 04 04 0 16 3 EA [...] CY BL NT ET HI AN A NM 00 03 03 0 12 3 EA [...] -2 -[address] 69 EP ti NM 30 2- 2- 00 SI 71 HE ve OL 73 20 20 DE NS OL 31 09 10 0 PH DO TA AR N RT MA R RA CY TE OF 50 CY MG NT HI TA AN B A NM 00 03 03 12 3 RI 82 [...] CY CA NT P HI AN A NM 00 03 03 0 28 7 EA [...] ST 98 ON ti ME 12 5 00 SI 84 NE ve TH 32 [...] on Urinalysis by dipstick (07-12-2017 14:19) Urine 1+ 1+ L NEG complet total 017 ed bilirub 14:19 in detecti on by test Comment: Comment: BILIRUBIN CONFIRMED WITH ICTOTEST Urine CLEAR CLEAR complet appeara 017 CLEAR L ed nce 14:19 determi nation Urine 2 2 L NEG complet urobili 017 E.U./dL ed nogen 14:19 detecti on by test str Urine NEGATIV NEG complet nitrite 017 E ed 14:19 NEGATIV detecti E L on by test strip Urine NEGATIV NEG complet leukocy 017 E ed te 14:19 NEGATIV esteras E L e detecti on by au Urine = 1.030 1.005-1 complet specifi 017 .030 ed c 14:19 gravity measure ment Urine = NEG complet protein 017 NEGATIV ed 14:19 E mg/dL measure ment by automat ed t Urine = 5.5 5.0-8.5 complet pH 017 ed 14:19 Urine NEGATIV NEG complet ketones 017 E ed 14:19 NEGATIV detecti E L on by mg/dL automat ed jaya Glucose = NEG complet ur 017 NEGATIV ed test 14:19 E strip Urine YELLOW YELLOW complet color 017 YELLOW ed 14:19 L Urine TRACE NEG complet blood 017 TRACE L ed detecti 14:19 on Urinalysis macro (dipstick) panel in Urine (07-12-2017 14:19) Appeara CLEAR CLEAR complet nce of 017 ed Urine 14:19 Bilirub 1+ NEG Abnorma complet in 017 l ed [Presen 14:19 ce] in Urine by Test strip Erythro TRACE NEG Abnorma complet cytes 017 l ed [Presen 14:19 ce] in Urine Color YELLOW YELLOW complet of 017 ed Urine 14:19 Ketones NEGATIV NEG complet 017 E ed [Presen 14:19 ce] in Urine by Automat ed test strip Leukocy NEGATIV NEG complet te 017 E ed esteras 14:19 e [Presen ce] in Urine by Automat ed test strip Nitrite NEGATIV NEG complet 017 E ed [Presen 14:19 ce] in Urine by Test strip Urobili 2 NEG Abnorma complet nogen 017 l ed [Presen 14:19 ce] in Urine by Test strip Comprehensive metabolic panel (07-12-2017 14:10) Serum = 138 136-145 complet sodium 017 mmoL/L ed measure 14:10 ment Serum = 3.4 3.5-5.1 complet potassi 017 mmoL/L ed um 14:10 measure ment Serum = 83 74-106 complet or 017 mg/dL ed plasma 14:10 glucose measure ment (mas Serum = 4.0 1.3-3.2 complet globuli 017 gm/dL ed n 14:10 measure ment (mass/v olume) Estimat = 59 59- complet ed 017 ML/MIN ed glomeru 14:10 lar filtrat ion rate (GF Comment: REFERENCE RANGE: >60 ML/MIN/1.73 SQUARE METERS Comment: If this patient is -[place] Citizen, then multiply the Comment: result by 1.210. Estimat = 120 50-200 complet ion of 017 ML/MIN ed creatin 14:10 ine renal clearan ce Serum = 1.0 0.55-1. complet or 017 mg/dL 02 ed plasma 14:10 creatin ine measure ment ( Carbon = 30 21.0-32 complet dioxide 017 mmoL/L .0 ed 14:10 measure ment Serum = 103 98-107 complet or 017 mmoL/L ed plasma 14:10 chlorid e measure ment (mo Serum = 8.9 8.5-10. complet or 017 mg/dL 1 ed plasma 14:10 calcium measure ment (mas Serum = 15 7-18 complet or 017 mg/dL ed plasma 14:10 urea nitroge n measure men Serum = 0.4 0.2-1.0 complet or 017 mg/dL ed plasma 14:10 total bilirub in measure m Serum = 86 46-116 complet or 017 U/L ed plasma 14:10 alkalin e phospha tase ielana Serum = 3.5 3.4-5.0 complet or 017 gm/dL ed plasma 14:10 albumin measure ment (mas Serum = 0.9 1.1-1.8 complet or 017 ed plasma 14:10 albumin /globul in mass ra Protein = 7.5 6.4-8.2 complet total 017 gm/dL ed ser/francia 14:10 s ALT = 24 12-78 complet (SGPT) 017 U/L ed ser/francia 14:10 s Serum = 14 15-37 complet or 017 U/L ed plasma 14:10 asparta te aminotr ansfera CBC w auto diff (07-12-2017 14:10) Blood = 6.6 4.8-10. complet leukocy 017 K/MM3 8 ed jaya 14:10 count (number /volume ) Automat = 14.9 11.5-17 complet ed 017 % .5 ed erythro 14:10 cyte distrib ution width Red = 4.63 4.2-5.4 complet blood 017 M/mm3 ed cell 14:10 count Blood = 270 142-424 complet platele 017 K/mm3 ed t count 14:10 Automat = 8.0 7.4-10. complet ed 017 fl 4 ed blood 14:10 platele t mean volume ileana Angelina % = 5.5 % 1.7-9.3 complet 017 ed 14:10 Absolut = 0.4 0.1-1.0 complet e 017 K/mm3 ed monocyt 14:10 e count Automat = 85.0 82.2-97 complet ed 017 fl .8 ed erythro 14:10 cyte mean corpusc ular v Automat = 32.2 31.8-35 complet ed 017 g/dl .4 ed erythro 14:10 cyte mean corpusc ular h Mean = 27.4 27-31.2 complet corpusc 017 pg ed ular 14:10 hemoglo bin (MCH) determ Lymphoc = 25.7 10-50.0 complet yte 017 % ed count, 14:10 blood, automat ed Absolut = 1.7 0.7-4.5 complet e 017 K/mm3 ed lymphoc 14:10 yte count Blood = 12.7 12.2-16 complet hemoglo 017 g/dL .2 ed bin 14:10 measure ment (mass/v olum Granulo = 62.8 37.0-80 complet cyte 017 % .0 ed percent 14:10 age Blood = 4.1 1.8-7.8 complet granulo 017 K/mm3 ed cytes 14:10 automat ed count (numb Automat = 4.8 % 0.1-12. complet ed 017 0 ed blood 14:10 eosinop hils/10 0 leukocy t Automat = 0.3 0.0-0.4 complet ed 017 K/mm3 ed blood 14:10 eosinop hil count Baso % = 1.2 % 0.1-2.0 complet 017 ed 14:10 Automat = 0.1 0-0.2 complet ed 017 K/MM3 ed blood 14:10 basophi l count (count/ vo Blood = 39.4 37.0-47 complet hematoc 017 % .0 ed rit 14:10 (volume fractio n) Rapid influenza A and B antigen detectio (06-29-2017 18:39) INFLUEN NOT NOT complet ZA B 017 DETECTE DETECTD ed ANTIGEN 18:39 D Comment: LOT # @[id number] EXP DATE @05-20-30 Influen NOT NOT complet za A ag 017 DETECTE DETECTD ed QL 18:39 D NOT DETECTE D L Screening group A Streptococcus antigen (06-29-2017 18:39) Screeni NOT NOTDETE complet ng 017 DETECTE CTED ed group A 18:39 D NOT DETECTE Strepto D L coccus antigen Comment: LOT # @[id number] EXP DATE @2019-05-04 Influenza virus A+B Ag [Presence] in Unspecified specimen (06-29-2017 18:39) Influen NOT NOT complet za 017 DETECTE DETECTD ed virus A 18:39 D Ag [Presen ce] in Unspeci fied specime n INFLUEN NOT NOT complet ZA B 017 DETECTE DETECTD ed ANTIGEN 18:39 D Streptococcus pyogenes Ag [Presence] in Unspecified specimen (06-29-2017 18:39) Strepto NOT NOTDETE complet coccus 017 DETECTE [...] 3 00:20 3 00:[address] [facility] Murray Ernst
--- OUTSIDE RECORDS SUMMARY | 2017-08-11 19:11 | External Medical Summary Rpt | CCD ---
Author Author , SHIMON Organization SHIMON Address Unknown Phone [email or web address] Care Team Providers Care Community Facilitator Name Role Phone [facility] Unavailable Unavailable [place], [facility] [place] [facility] Unavailable Unavailable [id number] # [phone], [facility] [id number] # [phone] [facility] # Unavailable Unavailable [id number], [facility] # [id number] Murray Velez III, MD, Murray Headley III, MD Purpose Continuity of Care Document - 10-30-2009 through 2016 Problems Code Diagnosis DOS Provider Status R30.0 DYSURIA 07-16-2017 719.41 719.41 12-26-2012 [facility] [id number] R11.10 VOMITING, UNSPECIFIED R51 HEADACHE R60.0 LOCALIZED EDEMA R79.89 OTHER SPECIFIED ABNORMAL FINDINGS OF BLOOD CHEMISTRY S53.402A UNSPECIFIED SPRAIN OF LEFT ELBOW, INITIAL ENCOUNTER Allergies, Adverse Reactions, Alerts Type Drug Allergy Adverse Reaction to Substance Substance Reaction Severity SULFA (sulfonamide) Unknown Unknown Bee Venom P-YIJHEL-LZVX/THROAT Unknown Medications Na ND Rx Da Fi [...] 42 11 11 TA 8 PH DO MA AR N N- MA R CA CY [...] MA R AU CY TO -I OF [place] EC CY TO NT R HI AN [...] ST 39 EP ti DC 30 4- 4- 00 SI 53 HE [...] 42 11 11 TA 8 PH DO MA AR N N- MA R CA CY [...] 42 11 11 TA 8 PH DO MA AR N N- MA R CA CY [...] 42 11 11 TA 8 PH DO MA AR N N- MA R CA CY [...] 42 11 11 TA 8 PH DO MA AR N N- MA R CA CY [...] 20 20 DE AZ 40 11 11 MA OL 1 PH CH E AR AE [...] 20 20 DE CE 42 10 10 MA TA 8 PH CH MA AR AE N- MA L CA CY [...] 20 RT 2 AC 90 10 10 MA 1 PH CH SO AR AE D [...] 20 20 DE IN 70 10 10 MA 5 PH CH 50 AR AE 0 [...] SQUARE METERS Comment: If this patient is -[place], then multiply the Comment: result by 1.210. [...] alkalin e phospha tase ileana Serum = 3.5 3.4-5.0 complet or 017 [...] blood 14:10 platele t mean volume ileana [place] % = 5.5 % 1.7-9.3 complet 017 [...] ed ANTIGEN 18:39 D Comment: LOT # @[id number] EXP DATE @05-20-30 Influen NOT NOT complet za A ag 017 DETECTE DETECTD ed QL 18:39 D NOT DETECTE D L Screening group A Streptococcus antigen (06-29-2017 18:39) Screeni NOT NOTDETE complet ng 017 DETECTE CTED ed group A 18:39 D NOT DETECTE Strepto D L coccus antigen Comment: LOT # @[id number] EXP DATE @2019-05-04 Influenza virus A+B Ag [...] 3 00:48 [facility] Murray Ernst
--- OUTSIDE RECORDS SUMMARY | 2017-08-11 19:16 | External Medical Summary Rpt | CCD ---
Demographics Preferred Language Azeri Marital Status Unknown Temple Affiliation Unknown Race Unknown Ethnic Group Unknown Author Author , SHIMON ROBINS Address Unknown Phone [email or web address] Care Team Providers Care Asw Specialist Name Role Phone [facility] Unavailable Unavailable T[place], [facility] Unavailable Unavailable [id number] # [id number], [facility] [id number] # [id number] [facility] # Unavailable Unavailable [id number], [facility] # [id number] Purpose Continuity of Care Document - 10-30-2009 through 2016 Medications Na ND Rx Da Fi Fi Am Da Di Ph RX Ph St me C No te ll ll ou ys ag ar # ys at rm s nt no ma ic us Or Da si cy ia de te s n re d HY 00 05 09 5 30 30 [...] -0 -[address] 39 EP ti [place] 30 4- 0- 00 SI 53 HE [...] 20 DE NS ZA 11 11 11 [place] 0 PH DO IN AR N E [...] -0 -[address] 39 EP ti [place] 30 4- 1- 00 SI 53 HE [...] 42 11 11 TA 8 PH DO CO AR N N- MA R CA CY [...] -0 -[address] 39 EP ti [place] 30 4- 1- 00 SI 53 HE [...] 20 DE NS ZA 11 11 11 [place] 0 PH DO IN AR N E [...] MA R AU CY TO -I OF AL EC CY TO NT R HI AN A CY 00 07 07 1 [address] Ac CL 37 -1 -[address] 26 EP ti OB 80 2- 2- 00 SI 28 HE ve EN 75 20 20 DE NS ZA 11 11 11 [place] 0 PH DO IN AR N E MA R 10 CY MG OF TA CY BL NT ET HI AN A [place] 00 07 07 0 12 3 EA 23 WE Ac OM 78 -0 -[address] 24 HR ti ET 11 7- 1- 00 SI 79 MA ve PARKER 83 20 20 DE N ZI 01 11 11 II NE 0 PH I AR WI 25 MA LL CY IA MG M OF E TA BL CY ET NT HI AN A [place] 00 07 07 0 12 3 EA [...] -0 -[address] 39 EP ti [place] 30 4- 1- 00 SI 53 HE [...] BL ET CY NT HI AN A [place] 00 06 06 1 [address] Ac OM 78 -0 -[address] 80 EP ti ET 11 SI 89 HE ve PARKER 83 20 20 DE NS ZI 01 11 11 NE 0 PH DO AR N 25 MA R CY MG OF TA BL CY ET NT HI AN A [place] 00 06 06 1 28 7 EA [...] .0 ST 80 EP ti EN 80 SI 90 HE ve OX 41 20 [...] -0 -[address] 39 EP ti [place] 30 SI 53 HE ve OL 73 [...] -0 -[address] 39 EP ti [place] 30 4- 4- 00 SI 53 HE [...] 42 11 11 TA 8 PH DO CO AR N N- MA R CA CY [...] 6- 6- 00 SI 60 HE ve [place] 02 20 20 DE NS ED 20 [...] 42 11 11 TA 8 PH DO CO AR N N- MA R CA CY [...] -2 -[address] 13 EP ti [place] 30 4- 8- 00 SI 63 HE [...] 42 11 11 TA 8 PH DO CO AR N N- MA R CA CY [...] 42 11 11 TA 8 PH DO CO AR N N- MA R CA CY FF OF 50 -3 CY 25 NT -4 HI 0 AN A ME 00 11 03 4 [address] Ac TO 09 -2 -[address] 13 EP ti [place] 30 4- 1- 00 SI 63 HE [...] 20 20 DE AZ 40 11 11 CO OL 1 PH CH E AR AE 50 MA L 0 CY S MG OF TA BL CY ET NT HI AN A [place] 00 02 02 0 28 7 EA [...] -2 -[address] 13 EP ti [place] 30 4- 5- 00 SI 63 HE [...] -2 -[address] 13 EP ti [place] 30 4- 4- 00 SI 63 HE [...] 4- 4- 00 SI 73 HE ve [place] 02 20 20 DE NS ED 20 [...] BL ET CY NT HI AN A [place] 00 12 12 0 24 6 EA [...] -2 -[address] 13 EP ti [place] 30 4- 4- 00 SI 63 HE [...] OF ET CY NT HI AN A [place] 00 11 11 0 20 5 EA [...] -2 -[address] 73 EP ti [place] 30 5- 4- 00 SI 22 HE [...] 4- 4- 00 SI 79 HE ve [place] 02 20 20 DE NS ED 20 [...] -2 -[address] 73 EP ti [place] 30 5- 2- 00 SI 22 HE [...] OF ET CY NT HI AN A [place] 00 08 08 0 16 4 EA [...] 0- 0- 00 SI 89 HE ve [place] 50 20 20 DE NS AM 91 [...] -2 -[address] 73 EP ti [place] 30 5- 3- 00 SI 22 HE [...] 20 20 DE CE 42 10 10 CO TA 8 PH CH CO AR AE N- MA L CA CY [...] -2 -[address] 73 EP ti [place] 30 5- 5- 00 SI 22 HE [...] -2 -[address] 73 EP ti [place] 30 5- 6- 00 SI 22 HE [...] UL CY E NT HI AN A [place] 00 06 06 0 12 3 EA [...] -2 -[address] 73 EP ti [place] 30 5- 5- 00 SI 22 HE [...] 20 RT 2 AC 90 10 10 CO 1 PH CH SO AR AE D [...] 20 20 DE IN 70 10 10 CO 5 PH CH 50 AR AE 0 MA L MG CY S CA OF PS UL CY E NT HI AN A ME 00 12 04 [address] Ac TO 09 -2 -[address] 69 EP ti [place] 30 2- 4- 00 SI 71 HE [...] ST 98 ON ti ME 12 5- 7 00 SI 84 NE ve TH 32 [...] UL CY E NT HI AN A [place] 00 04 04 0 16 3 EA [...] CY BL NT ET HI AN A [place] 00 03 03 0 12 3 EA [...] -2 -[address] 69 EP ti [place] 30 2- 2- 00 SI 71 HE ve OL 73 20 20 DE NS OL 31 09 10 0 PH DO TA AR N RT MA R RA CY TE OF 50 CY MG NT HI TA AN B A [place] 00 03 03 12 3 RI 82 [...] CY CA NT P HI AN A [place] 00 03 03 0 28 7 EA [...]
--- OUTSIDE RECORDS SUMMARY | 2017-08-11 19:16 | External Medical Summary Rpt | CCD ---
Demographics Preferred Language Slovenian Marital Status Unknown Rastafari Affiliation Unknown Race Unknown Ethnic Group Unknown Author Author , SHIOMN ROBINS Address Unknown Phone [email or web address] Care Team Providers Care Fur Remodeler Name Role Phone [facility] Unavailable Unavailable [facility], [facility] Unavailable Unavailable [id number] # [phone], [facility] [id number] # [id number] [facility] # Unavailable Unavailable [id number], [facility] # [id number] Purpose Continuity of Care Document - 10-30-2009 [...] -0 -[address] 39 EP ti [place] 30 4- 0- 00 SI 53 HE [...] 20 DE NS ZA 11 11 11 VT 0 PH DO IN AR N E [...] -0 -[address] 39 EP ti VT 30 4- 1- 00 SI 53 HE [...] 42 11 11 TA 8 PH DO OR AR N N- MA R CA CY [...] -0 -[address] 39 EP ti VT 30 4- 1- 00 SI 53 HE [...] 20 DE NS ZA 11 11 11 VT 0 PH DO IN AR N E [...] MA R AU CY TO -I OF DC EC CY TO NT R HI AN A CY 00 07 07 1 [address] Ac CL 37 -1 -[address] 26 EP ti OB 80 2- 2- 00 SI 28 HE ve EN 75 20 20 DE NS ZA 11 11 11 VT 0 PH DO IN AR N E MA R 10 CY MG OF TA CY BL NT ET HI AN A VT 00 07 07 0 12 3 EA 23 WE Ac OM 78 -0 -[address] 24 HR ti ET 11 7- 1- 00 SI 79 MA ve PARKER 83 20 20 DE N ZI 01 11 11 II NE 0 PH I AR WI 25 MA LL CY IA MG M OF E TA BL CY ET NT HI AN A VT 00 07 07 0 12 3 EA [...] -0 -[address] 39 EP ti VT 30 4- 1- 00 SI 53 HE [...] BL ET CY NT HI AN A VT 00 06 06 1 [address] Ac OM 78 -0 -[address] 80 EP ti ET 11 SI 89 HE ve PARKER 83 20 20 DE NS ZI 01 11 11 NE 0 PH DO AR N 25 MA R CY MG OF TA BL CY ET NT HI AN A VT 00 06 06 1 28 7 EA [...] -0 -[address] 39 EP ti VT 30 SI 53 HE ve OL 73 [...] -0 -[address] 39 EP ti [place] 30 4- 4- 00 SI 53 HE [...] 42 11 11 TA 8 PH DO OR AR N N- MA R CA CY [...] 6- 6- 00 SI 60 HE ve VT 02 20 20 DE NS ED 20 [...] 42 11 11 TA 8 PH DO OR AR N N- MA R CA CY [...] -2 -[address] 13 EP ti [place] 30 4- 8- 00 SI 63 HE [...] 42 11 11 TA 8 PH DO OR AR N N- MA R CA CY [...] 42 11 11 TA 8 PH DO OR AR N N- MA R CA CY FF OF 50 -3 CY 25 NT -4 HI 0 AN A ME 00 11 03 [address] Ac TO 09 -2 -[address] 13 EP ti [place] 30 4- 1- 00 SI 63 HE [...] 20 20 DE AZ 40 11 11 OR OL 1 PH CH E AR AE 50 MA L 0 CY S MG OF TA BL CY ET NT HI AN A VT 00 02 02 0 28 7 EA [...] -2 -[address] 13 EP ti VT 30 4- 5- 00 SI 63 HE [...] -2 -[address] 13 EP ti VT 30 4- 4- 00 SI 63 HE [...] 4- 4- 00 SI 73 HE ve VT 02 20 20 DE NS ED 20 [...] BL ET CY NT HI AN A VT 00 12 12 0 24 6 EA [...] -2 -[address] 13 EP ti [place] 30 4- 4- 00 SI 63 HE [...] OF ET CY NT HI AN A VT 00 11 11 0 20 5 EA [...] -2 -[address] 73 EP ti [place] 30 5- 4- 00 SI 22 HE [...] 4- 4- 00 SI 79 HE ve VT 02 20 20 DE NS ED 20 [...] -2 -[address] 73 EP ti [place] 30 5- 2- 00 SI 22 HE [...] OF ET CY NT HI AN A VT 00 08 08 0 16 4 EA [...] 0- 0- 00 SI 89 HE ve VT 50 20 20 DE NS AM 91 [...] -2 -[address] 73 EP ti [place] 30 5- 3- 00 SI 22 HE [...] 20 20 DE CE 42 10 10 OR TA 8 PH CH OR AR AE N- MA L CA CY [...] -2 -[address] 73 EP ti [place] 30 5- 5- 00 SI 22 HE [...] -2 -[address] 73 EP ti [place] 30 5- 6- 00 SI 22 HE [...] UL CY E NT HI AN A VT 00 06 06 0 12 3 EA [...] -2 -[address] 73 EP ti [place] 30 5- 5- 00 SI 22 HE [...] 20 RT 2 AC 90 10 10 OR 1 PH CH SO AR AE D [...] 20 20 DE IN 70 10 10 OR 5 PH CH 50 AR AE 0 MA L MG CY S CA OF PS UL CY E NT HI AN A ME 00 12 04 [address] Ac TO 09 -2 -[address] 69 EP ti [place] 30 2- 4- 00 SI 71 HE [...] UL CY E NT HI AN A VT 00 04 04 0 16 3 EA [...] CY BL NT ET HI AN A VT 00 03 03 0 12 3 EA [...] -2 -[address] 69 EP ti VT 30 2- 2- 00 SI 71 HE ve OL 73 20 20 DE NS OL 31 09 10 0 PH DO TA AR N RT MA R RA CY TE OF 50 CY MG NT HI TA AN B A VT 00 03 03 12 3 RI 82 [...] CY CA NT P HI AN A VT 00 03 03 0 28 7 EA [...]
--- OUTSIDE RECORDS SUMMARY | 2017-08-11 19:18 | External Medical Summary Rpt ---
Author Author RANDAEVA Montilla, [employer] Address Unknown Phone Unavailable Results Urinalysis macro (dipstick) panel in Urine Observa Value Referen Units Interpr Notes Date tion ce etation Range Appeara CLEAR CLEAR No No No Jul 12 nce of informa informa informa 2017 Urine tion in tion in tion in 2:19 PM source source source data data data Bilirub 1+ NEG No Abnorma BILIRUB Jul 12 in informa l IN 2016 [Presen tion in CONFIRM 2:19 PM ce] in source ED WITH Urine data by Test ICTOTES strip T Erythro TRACE NEG No Abnorma No Jul 12 cytes informa l informa 2016 [Presen tion in tion in 2:19 PM ce] in source source Urine data data Color YELLOW YELLOW No No No Jul 12 of informa informa informa 2017 Urine tion in tion in tion in 2:19 PM source source source data data data Glucose NEG No No No Jul 12 [Mass/vol informati informati informati 2017 2:19 ume] in on in on in on in PM Urine by source source source Test data data data strip Ketones NEGATIV NEG mg/dL No No Jul 12 E informa informa 2016 [Presen tion in tion in 2:19 PM ce] in source source Urine data data by Automat ed test strip pH of 5.0 - 8.5 No Normal No Jul 12 Urine informati informati 2017 2:19 on in on in PM source source data data Protein NEG mg/dL No No Jul 12 [Mass/vol informati informati 2016 2:19 ume] in on in on in PM Urine by source source Automated data data test strip Specific 1.005 - No Normal No Jul 12 gravity 1.030 informati informati 2017 2:19 of Urine on in on in PM source source data data Leukocy NEGATIV NEG No No No Jul 12 te E informa informa informa 2017 esteras tion in tion in tion in 2:19 PM e source source source [Presen data data data ce] in Urine by Automat ed test strip Nitrite NEGATIV NEG No No No Jul 12 E informa informa informa 2016 [Presen tion in tion in tion in 2:19 PM ce] in source source source Urine data data data by Test strip Urobili 2 NEG E.U./dL Abnorma No Jul 12 nogen l informa 2016 [Presen tion in 2:19 PM ce] in source Urine data by Test strip Comprehensive metabolic 2000 panel in Serum or Plasma Observa Value Referen Units Interpr Notes Date tion ce etation Range Albumin/G 1.1 - 1.8 No Low No Jul 12 lobulin informati informati 2016 2:10 [Mass on in on in PM ratio] in source source Serum or data data Plasma Albumin 3.4 - 5.0 gm/dL Normal No Jul 12 [Mass/vol informati 2016 2:10 ume] in on in PM Serum or source Plasma data Alkaline 46 - 116 U/L Normal No Jul 12 phosphata informati 2016 2:10 se on in PM [Enzymati source c data activity/ volume] in Serum or Plasma Bilirubin 0.2 - 1.0 mg/dL Normal No Jul 12 .total informati 2016 2:10 [Mass/vol on in PM ume] in source Serum or data Plasma Urea 7 - 18 mg/dL Normal No Jul 12 nitrogen informati 2016 2:10 [Mass/vol on in PM ume] in source Serum or data Plasma Calcium 8.5 - mg/dL Normal No Jul 12 [Mass/vol 10.1 informati 2017 2:10 ume] in on in PM Serum or source Plasma data Chloride 98 - 107 mmoL/L Normal No Jul 12 [Moles/vo informati 2017 2:10 lume] in on in PM Serum or source Plasma data Carbon 21.0 - mmoL/L Normal No Jul 12 dioxide, 32.0 informati 2017 2:10 total on in PM [Moles/vo source lume] in data Serum or Plasma Creatinin 0.55 - mg/dL Normal No Jul 12 e 1.02 informati 2017 2:10 [Mass/vol on in PM ume] in source Serum or data Plasma Creatinin 50 - 200 ML/MIN Normal No Jul 12 e renal informati 2017 2:10 clearance on in PM source predicted data by Cockcroft -Gault formula Estimated 59- ML/MIN No REFERENCE Jul 12 informati RANGE: 2017 2:10 glomerula on in >60 PM r source ML/MIN/1. filtratio data 73 SQUARE n rate METERSIf (GF this patient is -A merican, then multiply theresult by 1.210. Globulin 1.3 - 3.2 gm/dL High Jul 12 [Mass/vol informati 2016 2:10 ume] in on in PM Serum source data Glucose 74 - 106 mg/dL Normal No Jul 12 [Mass/vol informati 2016 2:10 ume] in on in PM Serum or source Plasma data Potassium 3.5 - 5.1 mmoL/L Low No Jul 122016 2:10 [Moles/vo on in PM lume] in source Serum or data Plasma Sodium 136 - 145 mmoL/L Normal No Jul 12 [Moles/vo 2016 2:10 lume] in on in PM Serum or source Plasma data Aspartate 15 - 37 U/L Low No Jul 12 inform2016 2:10 aminotran on in PM sferase source [Enzymati data c activity/ volume] in Serum or Plasma Alanine 12 - 78 U/L Normal No Jul 12 aminotran informati 2016 2:10 sferase on in PM [Enzymati source c data activity/ volume] in Serum or Plasma Protein 6.4 - 8.2 gm/dL Normal Jul 12 [Mass/vol informati 2016 2:10 ume] in on in PM Serum or source Plasma data CBC W Auto Differential panel in Blood Observa Value Referen Units Interpr Notes Date tion ce etation Range Basophils 0 - 0.2 K/MM3 Normal No Jul 122016 2:10 [#/volume on in PM ] in source Blood by data Automated count Basophils 0.1 - 2.0 % Normal No Jul 12 informati 2016 2:10 leukocyte on in PM s in source Blood by data Automated count Eosinophi 0.0 - 0.4 K/mm3 Normal No Jul 12 ls ati 2016 2:10 [#/volume on in PM ] in source Blood by data Automated count Eosinophi 0.1 - % Normal Jul 12/100 12.0 informati 2016 2:10 leukocyte on in PM s in source Blood by data Automated count Granulocy 1.8 - 7.8 K/mm3 Normal No Jul 12 jaya informati 2016 2:10 [#/volume on in PM ] in source Blood by data Automated count Granulocy 37.0 - % Normal No Jul 12/ 80.0 informati 2017 2:10 leukocyte on in PM s in source Blood by data Automated count Hematocri 37.0 - % Normal No Jul 12 t [Volume 47.0 informati 2016 2:10 on in PM Fraction] source of Blood data Hemoglobi 12.2 - g/dL Normal No Jul 12 n 16.2 informati 2017 2:10 [Mass/vol on in PM ume] in source Blood data Lymphocyt 0.7 - 4.5 K/mm3 Normal No Jul 12 es informati 2017 2:10 [#/volume on in PM ] in source Unspecifi data ed specimen by Automated count Lymphocyt 10 - 50.0 % Normal No Jul 12 informati 2016 2:10 [#/volume on in PM ] in source Unspecifi data ed specimen by Automated count Erythrocy 27 - 31.2 pg Normal No Jul 12 te mean informati 2016 2:10 corpuscul on in PM ar source hemoglobi data n [Entitic mass] Erythrocy 31.8 - g/dl Normal No Jul 12 te mean 35.4 informati 2016 2:10 corpuscul on in PM ar source hemoglobi data n concentra tion [Mass/vol ume] by Automated count Erythrocy 82.2 - fl Normal No Jul 12 te mean 97.8 informati 2016 2:10 corpuscul on in PM ar volume source [Entitic data volume] by Automated count Monocytes 0.1 - 1.0 K/mm3 Normal No Jul 12ati 2016 2:10 [#/volume on in PM ] in source Blood by data Automated count Monocytes 1.7 - 9.3 % Normal No Jul 12 informati 2016 2:10 leukocyte on in PM s in source Blood by data Automated count Platelet 7.4 - fl Normal No Jul 12 mean 10.4 informati 2016 2:10 volume on in PM [Entitic source volume] data in Blood by Automated count Platelets 142 - 424 K/mm3 Normal No Jul 12 informati 2016 2:10 [#/volume on in PM ] in source Blood data Erythrocy 4.2 - 5.4 M/mm3 Normal No Jul 12 jaya informati 2017 2:10 [#/volume on in PM ] in source Amniotic data fluid Erythrocy 11.5 - % Normal No Jul 12 te 17.5 informati 2016 2:10 distribut on in PM ion width source [Entitic data volume] by Automated count Leukocyte 4.8 - K/MM3 Normal No Jul 12 s 10.8 informati 2016 2:10 [#/volume on in PM ] in source Blood data Influenza virus A+B Ag [Presence] in Unspecified [...] 29 ZA B DETECTE DETECTD informa informa @[id number] ANTIGEN D tion in tion in 4 EXP 6:39 PM source source DATE data data @ 0 Streptococcus pyogenes Ag [Presence] in Unspecified specimen Observa Value Referen Units Interpr Notes Date tion ce etation Range Strepto NOT NOTDETE No No LOT # Jun 29 coccus DETECTE CTED informa informa @[id number] pyogene D tion in tion in 2 [...] Normal No Mar 04 dioxide, 32.0 informati 2016 total on in 12:30 AM [Moles/vo source [...] - 2.0 % Normal No Mar 04 /100 inform2016 [...] % Normal No Mar 04 jaya/100 80.0 ati 2016 leukocyte on in 12:30 AM s [...] Normal No Mar 04 te mean 35.4 inform2016 corpuscul on in 12:30 AM ar source hemoglobi data n concentra tion [Mass/vol ume] by Automated count Erythrocy 82.2 - fl Normal No Mar 04 te mean 97.8 inform2016 corpuscul on in 12:30 AM ar volume [...] fl Normal No Mar 04 mean 10.4 inform2016 volume on in 12:30 AM [Entitic source volume] data in Blood by Automated count Platelets 142 - 424 K/mm3 No No Mar 04 informati informati 2016 [#/volume on in on in 12:30 AM ] in source source Blood data data Erythrocy 4.2 - 5.4 M/mm3 Normal No Mar 04 jaya inform2016 [#/volume on in 12:30 AM ] in source Amniotic data fluid Erythrocy 11.5 - % Normal No Mar 04 te 17.5 informati 2016 distribut on in 12:30 AM ion width source [Entitic data volume] by Automated count Leukocyte 4.8 - K/MM3 Normal No Mar 04 s 10.8 informati 2016 [#/volume on in 12:30 AM [...]
--- OUTSIDE RECORDS SUMMARY | 2017-08-11 19:18 | External Medical Summary Rpt | CCD ---
Author Author , SHIMON ROBINS Address Unknown Phone [email or web address] Immunization Name Date Rout CVX Reac Dose Comm Prov Is Faci e tion ent ider Refu lity Give sed n Tdap 04-2 115 999 Hist H149 No H149 , 5-20 oric Adso 07 al rbed Info rmat ion - Sour ce Unsp ecif ied
--- OUTSIDE RECORDS SUMMARY | 2017-08-11 19:18 | External Medical Summary Rpt | CCD ---
Author Author , SHIMON ROBINS Address Unknown Phone [email or web address] Immunization Name Date Rout CVX Reac Dose Comm Prov Is Faci e tion ent ider Refu lity Give sed n Tdap 04-2 115 999 Hist H149 No H149 , 5-20 oric Adso 07 al rbed Info rmat ion - Sour ce Unsp ecif ied
--- OUTSIDE RECORDS SUMMARY | 2017-08-11 19:18 | External Medical Summary Rpt ---
[...] 29 ZA B DETECTE DETECTD informa informa @[id number] ANTIGEN D tion in tion in 4 EXP 6:39 PM source source DATE data data @ 0 Streptococcus pyogenes Ag [Presence] in Unspecified specimen Observa Value Referen Units Interpr Notes Date tion ce etation Range Strepto NOT NOTDETE No No LOT # Jun 29 coccus DETECTE CTED informa informa @[id number] pyogene D tion in tion in 2 [...]
[2017-08-11] MEDS ORDERED: CLARITIN 10MG T10 MG PO (19:54)
[2017-08-11] MEDS ORDERED: FLONASE 50 MCG16 GM (19:54)
--- NOTE | 2017-08-11 19:54 | Urgent Treatment Center Report ---
History of Present Issue Date/Time Seen by Provider 08/11/171945 Visit Reason Pt arrived:Walked Presenting Problem:C/O RT EAR PAIN SINCE LAST NIGHT Location if Accident: Onset of symptoms date/time:/ or onset unknown for:MEDICAL HX UNKNOWN Have you (or family members/close friends) recently traveled outside the [place]? N If Yes, where/when: Have you had exposure to infectious disease within the past month? TB? Other? Specify: c/o right ear pain since last night. Unchanged today. thinks infection. Described as fullness w/ popping. No fever. No treatment prior to arrival. Source patient Exam Limitations no limitations ALLERGIES Coded Allergies: Sulfa (Sulfonamide Antibiotics) (Mild, 09/03/16) morphine (Mild, 09/03/16) NSAIDS (Non-Steroidal Anti-Inflamma (UNKNOWN 09/03/16) escitalopram (From LEXAPRO) (UNKNOWN 09/03/16) ibuprofen (From MOTRIN) (12/10/16) Home Medications Reported Medications ATENOLOL (Atenolol 50MG) 50 MG PO DAILY Omeprazole (Omeprazole 20MG) 20 MG PO DAILY #30 Zolpidem Tartrate (Zolpidem 10MG) 10 MG PO QHS #30 Sertraline Hydrochloride (Sertraline 100MG) 100 MG PO DAILY #45 Trazodone Hcl (Trazodone HCl) 100 MG PO QHSP PRN SLEEP #30 ALBUTEROL (Ventolin Hfa) 1 PUFF IH Q6H6 History Medical History General CAD? No Angina: No NV: No Hypertension? Yes Hyperlipidemia? No CHF? No DVT? No PE? No COPD? No Asthma? Yes Anemia? No GERD? Yes Gastric ulcers? No GI Bleed? No Hernia? No Thyroid Problems? No Hypothyroidism? No CVA? No Seizures? No Diabetes? No UTI? No Stones? No BPH? No GB Disease: Yes Nephritic Syndrome? No Asplenia? No Hepatitis? No Sickle Cell Disease? No Arthritis? No Migraines? No Cataracts? No Glaucoma? No MRSA? No HIV? No TB? No Anxiety? Yes Depression? No Cancer? Yes Site: NECK ([place]) More? No Immunization HX DT/Tetanus 1-4 Years Ago Flu NOT SURE Pneumonia NOT SURE Surgical Hx Previous Surgery?Y Gallbladd Tubal Ligation BIOSPY ON NECK HYSTERECTOMY Appendix Family History Family HX Diabetes No CAD No Hypertension Yes Hyperlipidemia No Cancer No TB No Social History Smoking Hx Smoker: Never Smoker Tobacco: No Packs/day < 1 Pack Alcohol Alcohol: No Review of Systems All Other Systems Reviewed and Negative Constitutional denies chills, denies fever Eyes denies drainage ENT denies: ear discharge, nose discharge, nose congestion, throat pain, other ( change in hearing). Respiratory cough (mild, nonprod, x 2 days), denies shortness of breath, denies wheezing Cardiovascular denies chest pain Gastrointestinal denies no symptoms reported Musculoskeletal denies joint pain Skin denies lesions, denies rash Psychiatric/Neurological denies headache Physical Exam Vital Signs Vital Signs Date Time Temp Pulse Resp B/P Pulse O2 O2 Flow FiO2 Ox Delivery Rate 08/11 1938 97.8 76 20 113/70 98 General Appearance no apparent distress, obese, unkept appearance w/ odor Eye Exam - bilateral eye normal exam Ear, Nose, Throat normal pharynx, unremarkable nares and silver EACs, silver TMs pearly white, intact, clear fluid present w/ right slightly bulging Neck non-tender, supple Respiratory Status No: respiratory distress. Lung Sounds anterior: lungs clear. posterior: lungs clear. bilateral: lungs clear. Cardiovascular regular rate/rhythm, no peripheral edema, no murmur Neurologic alert, oriented x 3 Mental status normal mood/affect Skin normal color, warm/dry Lymphatic no adenopathy Medical Decision Making LABS/Meds/Orders Pt receiving controlled substance in ED? No Departure Departure Time of Disposition 1951 Disposition DC Home or Self Care(routine) Clinical Impression Primary Impression: Serous otitis media Qualifiers: Chronicity: acute Laterality: bilateral Recurrence: not specified as recurrent Qualified Code: H65.03 - Acute serous otitis media, bilateral Condition STABLE Referrals [facility] (Family) IMMEDIATELY for new or worsening symptoms OR no noticeable improvement over the next 72 hours. 911 for difficulty breathing or swallowing. Patient Instructions DI for Eustachian Tube Dysfunction-Adult Additional Instructions Read attached education eustachian tube dysfunction can be one of the causes of fluid in inner ear Sleep elevated Start flonase 2 sprays daily each nostril Start claritin Follow up for new or worsening symptoms Discharge Counseling Counseled pt/family regarding diagnosis, medications/RX, home care, follow up needs Prescriptions Current Visit Scripts Fluticasone Propionate (Flonase 50 Mcg Nasal [place]) 2 SPRAY NA DAILY #1 BOT Loratadine (Claritin 10MG) 10 MG PO DAILY #30 TAB at 1954
[2017-08-11 20:03] VITALS: BP 113/70
== END 2017-08-11 20:04 | disposition home or self-care (01) ==
LOC: UTC 19:02
DX: H65.03 Acute serous otitis media, bilateral (principal); J45.909 Unspecified asthma, uncomplicated; K21.9 Gastro-esophageal reflux disease without esophagitis; F41.9 Anxiety disorder, unspecified; Z85.71 Personal history of Hodgkin lymphoma; I10 Essential (primary) hypertension; Z88.6 Allergy status to analgesic agent; Z88.2 Allergy status to sulfonamides; Z88.8 Allergy status to other drugs, medicaments and biological substances; Z79.899 Other long term (current) drug therapy